=== PATIENT | female | born 1960 | race Caucasian/White ===

== ENCOUNTER 2016-03-09 11:57 | Inpatient (IN) | payer MEDICAID ==
[~2016-03-09] VITALS: Ht 167.6 cm; Wt 86.0 kg
[2016-03-09 18:00] VITALS: BP 114/74
[2016-03-09] MEDS ORDERED: ACETAMINOPHEN 500 MG TAB (TYLENOL) PO PRN (18:30)
[2016-03-09] MEDS ORDERED: PREPARATION H OINTMENT 57 GR TUBE PR PRN (18:30)
[2016-03-09] MEDS ORDERED: ARTIFICAL TEARS 0.4 ML UNIT DOSE (REFRESH PLUS) OU PRN (18:30)
[2016-03-09] MEDS: ENOXAPARIN 40 MG/0.4 ML (LOVENOX) SYR SC SCH (20:44)
[2016-03-09] MEDS: metroNIDAZOLE 500 MG (FLAGYL) TAB PO SCH (20:44)
[2016-03-09] MEDS: LUBIPROSTONE 24 MCG CAP (AMITIZA) NON-FORMULARY PO SCH (20:44)
[2016-03-09] MEDS: GABAPENTIN 600 MG (NEURONTIN) TAB PO SCH (20:44)
[2016-03-09] MEDS: ATENOLOL 25 MG (TENORMIN) TAB PO SCH (20:44)
[2016-03-09] MEDS: ATORVASTATIN 40 MG (LIPITOR) TABLET PO SCH (20:44)
[2016-03-09] MEDS: DILTIAZEM 30 MG (CARDIZEM) TAB PO SCH (20:44)
[2016-03-09] MEDS: inSUlin (REGULAR) HUMAN 1 UNIT/0.01 ML (CHARGE PER UNIT) SC SCH (21:00)
[2016-03-09] MEDS: POLYETHYLENE GLYCOL 17 GM (MIRALAX) PACK PO SCH (21:00)
[2016-03-09] MEDS: SENNA W/DOCUSATE (SENOKOT S) TABLET PO SCH (21:00)
[2016-03-09] MEDS: inSUlin DETERMIR 1 UNIT/0.01 ML (LEVEMIR) CHARGE PER UNIT SQ SCH (21:17)
[2016-03-10 06:00] VITALS: BP 100/65
[2016-03-10] MEDS: inSUlin (REGULAR) HUMAN 1 UNIT/0.01 ML (CHARGE PER UNIT) SC SCH ×4 (06:00→22:00)
[2016-03-10 06:33] LABS: BASOPHILS # (AUTO) 0.1 10^3/uL (0.0-0.1); BASOPHILS % (AUTO) 1 % (0-10); EOSINOPHILS # (AUTO) 0.4 10^3/uL (0.0-0.3); EOSINOPHILS % (AUTO) 5 % (0-10); LYMPHOCYTES # (AUTO) 1.7 X 10^3 (1.0-4.0); LYMPHOCYTES % (AUTO) 21 % (12-44); MEAN CORPUSCULAR HEMOGLOBIN 30 PG (25-34); MEAN CORPUSCULAR HGB CONC 33 G/DL (32-36); MEAN CORPUSCULAR VOLUME 90 FL (80-99); MEAN PLATELET VOLUME 9.7 FL (7.4-10.4); MONOCYTES # (AUTO) 0.7 X 10^3 (0.0-1.0); MONOCYTES % (AUTO) 9 % (0-12); NEUTROPHILS # (AUTO) 5.2 X 10^3 (1.8-7.8); NEUTROPHILS % (AUTO) 64 % (42-75); PLATELET COUNT 386 10^3/uL (130-400); RED BLOOD COUNT 3.75 10^6/uL (4.35-5.85); RED CELL DISTRIBUTION WIDTH 15.7 % (10.0-14.5); WHITE BLOOD COUNT 8.1 10^3/uL (4.3-11.0)
[2016-03-10 06:51] LABS: ALBUMIN 3.1 G/DL (3.2-4.5); BILIRUBIN,TOTAL 0.3 MG/DL (0.1-1.0); CALCIUM 8.9 MG/DL (8.5-10.1); CREATININE SERUM 1.26 MG/DL (0.60-1.30); POTASSIUM 3.4 MMOL/L (3.6-5.0); TOTAL PROTEIN 6.3 G/DL (6.4-8.2)
--- NOTE | 2016-03-10 08:51 | Physical Therapy Evaluation ---
PT Evaluation-General Medical Diagnosis Admission Date Mar 09, 2016 at 18:02 Medical Diagnosis: left BKA Onset Date: Feb 01, 2016 Therapy Diagnosis Therapy Diagnosis: impaired mobility, strength, balance, endurance Height/Weight Height (Feet): 5 Height (Inches): 6.00 Weight (Pounds): 187 Weight (Ounces): 1.0 Precautions Precautions/Isolations: Contact Isolation, Fall Prevention, Standard Precautions, Pressure Ulcer Weight Bear Status Location Restriction: [facility] Referral Physician: Jonah Reason for Referral: Evaluation/Treatment Medical History Pertinent Medical History: DM, HTN Additional Medical History c-diff, depression Current History had gangrenous cellulitis of left foot. Social History Home: Single Level Current Living Status: Spouse Entry Into Home: Stairs Without Railing PT Steps Into Home: 2 Patient has 2 fairly large steps to get into the back of her home, and there is no railing. The front has about 5 steps. She will need to get railing or a ramp. Prior/Core FIM Prior Level of Function Functional [place] Measure 0=Not Assessed/NA 4=Minimal Assistance 1=Total Assistance 5=Supervision or Setup 2=Maximal Assistance 6=Modified [place] 3=Moderate Assistance 7=Complete [place] Bed Mobility: 7 Transfers (B,C,W/C) (FIM): 7 Gait: 7 PT Evaluation-Current Subjective Patient sleeping in bed pre tx, agrees to PT upon waking. She has had a slight BM in bed and would like to go to the bedside commode. Patient states she has little to no pain in left leg right now, but it does get intense and she does have phantom limb pain. Pain Numeric Pain Scale: 0-No Pain Pt/Family Goals "to walk again" Objective Patient Orientation: Normal For Age ROM/Strength ROM Lower Extremities WNL, patient has full left knee extension Strenght Lower Extremities 4/5 right leg, left not tested due to recent surgery Integumentary/Posture Bowel Incontinence: Yes Neuromuscular (Tone, Coordination, Reflexes) WNL Sensory Vision: Functional Hearing: Functional Sensation Right Lower Extremit: Impaired Sensation Left Lower Extremity: Impaired Sensation Lower Extremities Patient has intact light touch sensation on the right leg below the knee but she states it is dull. Transfers Functional [place] Measure 0=Not Assessed/NA 4=Minimal Assistance 1=Total Assistance 5=Supervision or Setup 2=Maximal Assistance 6=Modified [place] 3=Moderate Assistance 7=Complete IndependenceIRFPAI Quality Coding Scale 6 Independent with activity with or without an assistive device 5 Patient requires set up or clean up by helper. Patient completes activity by themselves 4 Supervision or touching assist (CGA). [place] provide cues , steadying assist 3 The helper provides less than half the effort to complete the activity 2 The helper provides more than half the effort to complete the activity 1 Dependent. The helper does all the effort to complete an activity 7 Patient refused to complete or attempt activity 9 The patient did not perform the activity before the current illness or injury 88 Not attempted due to Medical conditions or safety concerns Transfers (B, C, W/C) (FIM): 3 Scootin Rollin Roll Left to Right (QC): 3 Supine to/from Sit: 3 Sit to/from Stand: 3 bed t/f WC(FIM only if WC use): 3 Sit to Lying (QC): 2 Lying to Sitting/Side of Bed(Q: 2 Sit to Stand (QC): 2 Chair/Vlv-xq-[place] Xfer(QC): 2 Car Transfer (QC): 88 Right leg is weak and she has a very hard time standing, she also has weak trunk and has a very hard time going from supine to sit. She needs cues for safety and hand placement, she tends to try to stand with hands on the walker. Gait Does the Patient Walk?: No and Walking Goal IS indicated Mode of Locomotion: Both Anticipated Mode of Locomotion: Both Gait (FIM): 1 Walk 10 feet (QC): 88 Walk 50 ft with 2 Turns(QC): 88 Walk 150 ft (QC): 88 Walking 10ft/uneven surface-QC: 88 Distance: 1-2' Gait Level of Assist: 3 Gait Persons Needed: 1 Gait Assistive Device: FWW Comments/Gait Description Patient had a couple of feet to ambulate and she basically just twisted her right foot back and forth until it went far enough that she could sit. Patient is not strong enough in the upper body to support her weight and lift her right leg off the ground. Wheelchair Training Does the Pt Use a Wheelchair?: Yes Wheelchair (FIM): 5 Distance: 150' Wheelchair Level of Assist: 5 Wheel 50 ft with 2 turns (QC): 4 Wheel 150 ft (QC): 4 Type of Wheelchair: Manual Patient just needs cues for safety and direction. Stairs Stairs (FIM): 0 1 Step (curb) (QC): 88 4 Steps (QC): 88 12 Steps (QC): 88 If not tested on admit;explain Patient is not strong enough to attempt even 1 step at this point. Balance Sitting Static: Fair Sitting Dynamic: Fair Standing Static: Poor Standing Dynamic: Poor Picking up an Object (QC): 88 Treatment Patient was toileted once, cleaned and and a brief applied. Assessment/Needs Patient has impaired mobility and is very weak in her right leg and trunk. Progress is going to be difficult due to her level of weakness, she may need to stay for an extended time to get her to be able to go up and down steps to get into her home or to ambulate a functional distance. Rehab Potential: Fair PT Short Term Goals Short Term Goals Time Frame: Mar 17, 2016 Transfers (B,C,W/C) (FIM): 4 Gait (FIM): 1 Gait Distance Comment: 10' Gait Level of Assist: 4 Gait Assistive Device: FWW PT Usp Goals Usp Goals PT Crawler Tractor Operator Goals Time Frame: Mar 31, 2016 Transfers (B,C,W/C) (FIM): 5 Sit to Lying (QC): 4 Lying-Sitting on Side/Bed(QC): 4 Sit to Stand (QC): 4 Rollin Roll Left to Right (QC): 4 Chair/Axd-rb-Wjabp Xfer(QC): 4 Car Transfer (QC): 4 Gait (FIM): 1 Distance: 20' Walk 10 feet (QC): 4 Walk 10ft-Uneven Surface(QC): 4 Walk 50ft with 2 Turns (QC): 88 Walk 150 ft (QC): 88 Gait Level of Assist: 5 Gait Assistive Device: FWW Wheelchair (FIM): 6 Distance: 150' Wheelchair Level of Assist: 6 Wheel 50 feet with 2 turns (QC: 6 Stairs (FIM): 2 # of Steps: 4 1 Step (curb) (QC): 4 4 Steps (QC): 4 12 Steps (QC): 88 Stairs Level Of Assist: 4 Picking up an Object (QC): 88 PT Plan Problem List Problem List: Activity Tolerance, Functional Strength, Safety, Balance, Gait, Transfer, Bed Mobility, ROM Treatment/Plan Treatment Plan: Continue Plan of Care, Discontinue PT, goals met Treatment Plan: Bed Mobility, Education, Functional Activity Mahad, Functional Strength, Group Therapy, Gait, Safety, Therapeutic Exercise, Transfers Treatment Duration: Mar 31, 2016 # of days/week 5-6 Visits Per Week: 10-11 Minutes/Day (M-F): 60-90 Minutes/Day (Sat/[place]ola): 15-30 Pt/Family Agrees w/Plan: Yes Safety Risks/Education Patient Education: Gait Training, Transfer Techniques, Correct Positioning, W/ C Management, Safety Issues Teaching Recipient: Patient Teaching Methods: Demonstration, Discussion Response to Teaching: Reinforcement Needed Discharge Recommendations Plan Patient will perform bed mobility and transfer training, balance and endurance training, functional strengthening, stair training, gait training, ROM/ stretching, education, to improve functional mobility and independence at home. Therapy D/C Recommendations: Home w/ Family Support Time/GCodes Time In: 800 Time Out: 900 Total Billed Treatment Time: 60 Total Billed Treatment 1 visit EVL 15 min WCH 15 min FA 30 min GEM DANIELSON PT Mar 10, 2016 08:51
--- NOTE | 2016-03-10 08:57 | HISTORY AND PHYSICAL ---
DATE OF ADMISSION: 03/09/2016 CHIEF COMPLAINT: Difficulty with walking. HISTORY OF PRESENT ILLNESS: The patient is a pleasant 55-year-old disabled female who lives with her spouse in [place], [place] with a history of peripheral vascular disease, chronic kidney disease and insulin-dependent diabetes mellitus, who was admitted to on 02/18 for treatment of C. diff. colitis. She was originally admitted to [facility] in January with septic shock and gangrenous cellulitis of the left foot. She underwent BKA on 01/31. She was transferred to a alf in her home community with Alexander catheter still in place. Once readmitted to [facility], she was placed on oral metronidazole, she became afebrile. Bacteremia with Streptococcus was noted without any sign of underlying infectious source, cystitis with E. coli secondary to Alexander catheter, asymptomatic. The patient was followed by infectious disease as well as hospitalist service. The patient has now been referred to Inpatient Rehabilitation Unit at [facility] for ongoing amputee rehabilitation. She continues on another 10 day course of p.o. Flagyl. She reports being continent of bowel and bladder and having better formed stools. She complains of her right leg giving out at times which has been for the past 2 years. She reports weakness with that. 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 Currently, she requires assistance for her ADLs and mobility skills. Her H&H on 02/21 was 10.2/32.5, platelet count 365,000.She is mod assist for transfers and gait with FWW She is Modified Independent for eating SBA for grooming Setup for UB dressing and min assist for Lower body dressing Mod asist for toilet transfers PAST MEDICAL HISTORY: 1. Insulin-dependent diabetes mellitus. 2. C. diff. bowel colitis as per above. 3. Depression. 4. Hypertension. 5. She reports minimal phantom limb pain, minimal residual limb pain. She is utilizing tramadol and Percocet for pain control. Gabapentin for neuropathic pain. PAST SURGICAL HISTORY: As per above as well as: 1. Tonsillectomy. 2. section. ALLERGIES: Tetanus toxoid. FAMILY HISTORY: Noncontributory. SOCIAL HISTORY: , lives in [place], [place] with spouse.Tobaccoism Declines smoking cessation REVIEW OF SYSTEMS: Ten-point review of systems significant for a right leg giving out. Some residual limb and phantom limb pain on the left. MEDICATIONS: 1. Lipitor 40 mg p.o. at bedtime. 2. Diltiazem 30 mg p.o. daily. 3. Gabapentin 600 mg p.o. t.i.d. 4. Levemir insulin 10 units subcutaneous at bedtime. 5. Sliding scale insulin regimen A. 6. Amitiza 24 mcg p.o. b.i.d. 7. MiraLAX 17 grams p.o. at bedtime. 8. Senokot-S 2 tablets p.o. b.i.d. 9. Flagyl 500 mg p.o. t.i.d. 10. Tylenol 500 mg p.o. q.4 hours p.r.n. mild pain. 11. Xanax 0.5 mg p.o. t.i.d. p.r.n. anxiety. 12. Refresh tears one drop to affected t.i.d. p.r.n. 13. Generic Percocet 5/325, 1 tablet p.o. q.4 hours p.r.n. moderate pain. Hemorrhoidal ointment, apply to hemorrhoids q.i.d. p.r.n. 14. Tramadol 50 mg p.o. t.i.d. p.r.n. moderate pain. PHYSICAL EXAMINATION: Significant for a pleasant female, appearing her stated age, alert and oriented in no acute distress. VITAL SIGNS: She is afebrile. Pulse is 87, respirations 20, blood pressure 114/74, O2 sat 96% on room air. HEENT: Vision, speech, hearing, grossly intact. No oral lesion is noted. NECK: Supple without mass. HEART: Regular rhythm. LUNGS: Clear. ABDOMEN: Soft, nontender. Bowel sounds present. EXTREMITIES: No lower leg edema. No calf tenderness on the right. The residual limb, left BKA, healing well. MUSCULOSKELETAL: The patient has functional active range of motion in both upper extremities and right lower extremity and at the left hip. NEUROLOGIC: Sensation is grossly intact to touch. Cognition grossly intact. Strength both upper extremities 4/5. Right lower extremity, she is able to active hip flex and straight leg raise on the right with strength generally in 4/5 as well as in proximal left lower extremity.fair at left knee IMPRESSION: 1. Ambulatory dysfunction secondary to left BKA for peripheral vascular disease associated with gangrenous cellulitis of the left foot 02/01/2016, in [place], [place]. 2. Postoperative C. diff. bowel colitis, treated. 3. Bacteremia, felt to be asymptomatic at this point. 4. E. coli with cystitis secondary to Alexander catheter now removed, asymptomatic. 5. Atrial fibrillation history, controlled with medication. 6. Hypertension, controlled with medication 7. Pressure sore on buttock. 8. Type 2 diabetes mellitus, controlled with medication. 9. Postop DVT prophylaxis. We will utilize Lovenox subcutaneous as needed. 10. Peripheral vascular disease . 11. Depression, controlled with medication. PLAN: The patient will have a comprehensive program of inpatient rehabilitation with goal of maximizing level of functional independence prior to discharge home with spouse. The patient will have PT/OT 90 minutes per day, each discipline, 5 days week for gait strengthening, conditioning, balance, residual limb conditioning, ADLs, any patient/family/caregiver training necessary, any adaptive equipment and training necessary. Speech therapy to do cognitive assessment and treat as indicated. Rehabilitation nursing assist with bowel, bladder, skin, wound care, medication administration, and pain management. Accu-Cheks q.i.d. before meals and at bedtime, adjust medications as necessary. Therapy with cardiac and fall precautions. The patient is nonweightbearing, left lower extremity. check services clerk to assist with discharge planning, community reentry. Routine admission labs, continue current medications. Consult Dr. Christina for medical management of this out of town patient. Consult Dr. Darden for wound care assessment and treatment as needed. ESTIMATED LENGTH OF STAY: Two weeks. PROGNOSIS: Rehab prognosis appears good for goal of discharging home with spouse, modified independent for ADLs and mobility skills at the wheelchair level of function. DIET: Carb consistent. CODE STATUS: Full code. POST ADMISSION PHYSICIAN ASSESSMENT: The preadmission screen agrees with the post admission assessment that the patient is a good candidate for inpatient rehabilitation. She appears well motivated to participate in 3 hours of therapy a day. She should be able tolerate 3 hours of therapy a day from a medical and surgical standpoint. She should benefit from the 3 hours of therapy a day. She has reasonable discharge plan, reasonable discharge rehabilitation goals and a supportive family. She has various comorbidities that need to be closely monitored with medications and treatments adjusted daily basis as needed, these include her ongoing wound care, treatment of diabetes mellitus, hypertension, and pain management. BARRIERS TO DISCHARGE: Barriers to discharge for this patient who had been modified independent prior to all of this, are for her to be modified independent to supervision for ADLs and mobility skills at the wheelchair level of function prior to discharge home with spouse so as to lessen the burden of the caregivers. RISKS FOR THIS PATIENT: Include: 1. Recurrent C. diff. bowel colitis. 2. Skin breakdown. 3. Wound infection. 4. Contractures. 5. Poorly controlled pain. 6. Poorly controlled hypertension. 7. Poorly controlled diabetes mellitus. 8. DVT. 9. Pulmonary embolism. 10. Urinary retention. 11. UTI. 12. Respiratory infection. 13. Aspiration. Job ID: [id number] Dictated Date: 03/09/2016 19:30:44 Tawer Date: 03/10/2016 08:35:05/verito GEE
[2016-03-10] MEDS ORDERED: lisINopril 10 MG (PRINIVIL) TAB PO SCH (09:00)
[2016-03-10] MEDS: SENNA W/DOCUSATE (SENOKOT S) TABLET PO SCH ×2 (09:00→22:01)
[2016-03-10] MEDS: metroNIDAZOLE 500 MG (FLAGYL) TAB PO SCH (09:17)
[2016-03-10] MEDS: FUROSEMIDE 20 MG (LASIX) TAB PO SCH (09:17)
[2016-03-10] MEDS: LUBIPROSTONE 24 MCG CAP (AMITIZA) NON-FORMULARY PO SCH ×2 (09:17→22:00)
[2016-03-10] MEDS: GABAPENTIN 600 MG (NEURONTIN) TAB PO SCH ×3 (09:17→22:01)
[2016-03-10] MEDS: DULoxetine 30 MG (CYMBALTA) CAP PO SCH (09:17)
[2016-03-10] MEDS: ATENOLOL 25 MG (TENORMIN) TAB PO SCH ×2 (09:18→22:01)
[2016-03-10] MEDS: DILTIAZEM 30 MG (CARDIZEM) TAB PO SCH ×3 (09:18→22:00)
--- NOTE | 2016-03-10 10:48 | Occupational Therapy Eval ---
OT Evaluation-General/PLF Medical Diagnosis Admission Date Mar 09, 2016 at 18:02 Medical Diagnosis: left BKA Onset Date: Feb 01, 2016 Therapy Diagnosis Therapy Diagnosis: decreased self care skills Height/Weight Height (Feet): 5 Height (Inches): 6.00 Weight (Pounds): 187 Weight (Ounces): 1.0 Precautions Precautions/Isolations: Contact Isolation, Fall Prevention, Standard Precautions, Pressure Ulcer Safety Interventions: Reorient-PRN Weight Bear Status Location Restriction: L LE Referral Physician: Jonah Medical History Pertinent Medical History: DM, HTN Additional Medical History left BKA, depression, c-diff Reviewed History: Yes Social History Home: Single Level Current Living Status: Spouse Entry Into Home: Stairs Without Railing Steps Into Home: 2 ADL-Prior Level of Function ADL PLOF Comments Independent prior to surgery. 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 Was not using and assistive device for mobility. Pt states she's had weakness in right LE for about a year DME/Equipment: Tub/Shower Drive Self: Yes OT Current Status Subjective Pt agrees to therapy. 3/10 pain in buttocks secondary to pressure ulcer. Mental Status/Objective Patient Orientation: Person, Place, Time, Situation Current Glasses/Contacts: Yes Hearing Aids: No Dentures/Partials: No Hand Dominance: Right Upper Extremity ROM Grossly WFL Upper Extremity Coordination Intact Upper Extremity Sensation Intact per pt report Upper Extremity Strength Grossly 4/5 ADL-Treatment ADL-Current Pt sitting in BSC when therapist arrives. Pt requires total assist for toileting hygiene and clothing management. Transfer BSC to w/c with moderate assistance using FWW. Pt has difficulty coming from sit to stand and requires cues for hand placement and safety. Sponge bath completed seated in chair. Pt able to wash upper body with set up. Pt able to wash bilateral upper legs and right lower leg. Pt requires assist for other areas. Pt washed hair in sink with SBA while seated. Don pullover gown with SBA. Pt able to doff/don right sock with SBA. Grooming tasks completed seated at sink. Pt washed face, brushed teeth, combed hair and shaved face with set up. Pt requires increased time for ADL tasks. Pt requests to remain sitting in w/c after session. All needs met. Functional [place] Measure 0=Not Assessed/NA 4=Minimal Assistance 1=Total Assistance 5=Supervision or Setup 2=Maximal Assistance 6=Modified [place] 3=Moderate Assistance 7=Complete IndependenceIRFPAI Quality Coding Scale 6 Independent with activity with or without an assistive device 5 Patient requires set up or clean up by helper. Patient completes activity by themselves 4 Supervision or touching assist (CGA). [place] provide cues , steadying assist 3 The helper provides less than half the effort to complete the activity 2 The helper provides more than half the effort to complete the activity 1 Dependent. The helper does all the effort to complete an activity 7 Patient refused to complete or attempt activity 9 The patient did not perform the activity before the current illness or injury 88 Not attempted due to Medical conditions or safety concerns Eating (FIM): 6 (Pt reports feeding self, managing containers, and cutting food without assistance.) Eating (QC): 6 Grooming (FIM): 5 Oral Hygiene (QC): 4 Bathing (FIM): 3 Bathing Location: L Arm, R Arm, L Upper Leg, R Upper Leg, R Lower Leg ( including foot), Chest, Abdomen Shower/Bathe Self (QC): 3 Upper Body Dressing (FIM): 5 Upper Body Dressing (QC): 4 On/Off Footwear (QC): 4 Toileting (FIM): 1 Toileting Hygiene (QC): 1 Toilet/Commode Transfer (FIM): 3 Toilet Transfer (QC): 3 Education OT Patient Education: Rehab process Teaching Recipient: Patient Teaching Methods: Discussion Response to Teaching: Verbalize Understanding OT Short Term Goals Short Term Goals Time Frame: Mar 17, 2016 Bathing(FIM): 4 Lower Body Dressing(FIM): 3 Toileting(FIM): 3 Toilet/Commode Transfer(FIM): 4 Shower Transfer(FIM): 3 Additional Short Term Goals: 1-Demonstrate ADL Tasks, 2-Verbalize Understanding , 3-ImproveStrength/Mahad 1=Demonstrate adherence to instructed precautions during ADL tasks. 2=Patient will verbalize/demonstrate understanding of assistive devices/ modifications for ADL. 3=Patient will improve strength/tolerance for activity to enable patient to perform ADL's. OT Halfway Goals Log Feeder Goals Time Frame: Mar 31, 2016 Eating (FIM): 6 Eating (QC): 6 Oral Hygiene (QC): 6 Grooming(FIM): 6 Bathing(FIM): 5 Shower/Bathe Self (QC): 4 Upper Body Dressing(FIM): 6 Upper Body Dressing (QC): 6 Lower Body Dressing(FIM): 5 Lower Body Dressing (QC): 4 On/Off Footwear (QC): 5 Toileting(FIM): 5 Toileting Hygiene (QC): 4 Toilet/Commode Transfer(FIM): 5 Toilet/Commode Transfer (QC): 4 Shower Transfer(FIM): 4 Additional Goals: 1-Demonstrate ADL Tasks, 2-Verbalize Understanding, 3- ImproveStrength/Mahad 1=Demonstrate adherence to instructed precautions during ADL tasks. 2=Patient will verbalize/demonstrate understanding of assistive devices/ modifications for ADL. 3=Patient will improve strength/tolerance for activity to enable patient to perform ADL's. Goals established to promote increased functional performance to allow safe return home. OT Education/Plan Problem List/Assessment Assessment: Decreased Activ Tolerance, Decreased UE Strength, Dependent Transfers, Impaired Funct Balance, Impaired I ADL's, Impaired Self-Care Skills Pt demonstrates decreased mobility, strength, activity tolerance, and ADL performance. Pt to benefit from skilled OT intervention for ADL training, transfers, strengthening, adaptive equipment training as needed, and home safety education to maximize level of function and allow safe discharge. Discharge Recommendations Plan/Recommendations: Continue POC Treatment Plan/Plan of Care Treatment,Training & Education: Yes Patient would benefit from OT for education, treatment and training to promote independence in ADL's, mobility, safety and/or upper extremity function for ADL' s. Plan of Care: ADL Retraining, Functional Mobility, Group Exercise/Act as Ind, UE Funct Exercise/Act Treatment Duration: Mar 31, 2016 # of days/week 5-6 Minutes/Day (M-F): 60-90 Minutes/Day (Sat/Canchola): PRN Agreement: Yes Rehab Potential: Fair Time/GCodes Start Time: 10:30 Stop Time: 12:00 Total Time Billed (hr/min): 90 Billed Treatment Time 1 visit, EVL(15minutes), ADLx5(75minutes) OLIVIA NELSON OT Mar 10, 2016 10:48
--- NOTE | 2016-03-10 10:58 | PM & R (SOAP) Progress Note ---
Subjective Subjective/Events-last exam Patient was seen in her room this AM Adjusting well to unit Therapy assessments ongoing due to late arrival from OSH last evening Patient educated about smoking cessation Patient declines.despite the effect that it can have on circulation and general health.Discussed case with RN last night and this AM Patient remians in contact precautions and stool for c dif positive RN to f/u with Dr christina re resuming Flagyl Discussed case with Clinical Pharmacist this AM Left BKA healing well no drainage noted Patient does have a pressure sore on back Wound care to Assess Serum K low Replacement to be ordered. Objective Exam Last Set of Vital Signs Vital Signs Date Time Temp Pulse Resp B/P Pulse Ox O2 Delivery O2 Flow Rate FiO2 03/10/16 06:00 97.1 75 16 100/65 95 Room Air Capillary Refill : Less Than 3 Seconds I&O Bad tableGeneral: Alert, Oriented X3, Cooperative, No Acute Distress HEENT: Atraumatic, PERRLA, EOMI, Mucous Memb Moist/[place] Neck: Supple, No JVD Lungs: Clear to Auscultation Heart: Regular Rate Abdomen: Normal Bowel Sounds, Soft, No Tenderness Extremities: Other (left BKA from 02/01/16 OSH) Skin: Other (prssure sore on back) Neuro: Other (mild weakness RLE) Results Lab Laboratory Tests 03/09/16 21:04: Glucometer 193H 03/10/16 05:59: Alanine Aminotransferase (ALT/SGPT) 14, Albumin 3.1L, Alkaline Phosphatase 67, Anion Gap 9, Aspartate Amino Transf (AST/SGOT) 11, BUN/Creatinine Ratio 17, Basophils # (Auto) 0.1, Basophils (%) (Auto) 1, Blood Urea Nitrogen 22H, Calcium Level 8.9, Carbon Dioxide Level 18L, Chloride Level 111H, Creatinine 1.26, Eosinophils # (Auto) 0.4H, Eosinophils (%) (Auto) 5, Estimat Glomerular Filtration Rate 44, Glucose Level 159H, Hematocrit 34L, Hemoglobin 11.2L, Lymphocytes # (Auto) 1.7, Lymphocytes (%) (Auto) 21, Mean Corpuscular Hemoglobin 30, Mean Corpuscular Hemoglobin Concent 33, Mean Corpuscular Volume 90, Mean Platelet Volume 9.7, Monocytes # (Auto) 0.7, Monocytes (%) (Auto) 9, Neutrophils # (Auto) 5.2, Neutrophils (%) (Auto) 64, Platelet Count 386, Potassium Level 3.4L, Red Blood Count 3.75L, Red Cell Distribution Width 15.7H, Sodium Level 138, Total Bilirubin 0.3, Total Protein 6.3L, White Blood Count 8.1 03/10/16 06:34: Glucometer 165H Microbiology 03/09/16 C. difficile GDH Antigen & Toxins - Final, Complete Assessment/Plan Assessment Left [facility] 02-01-16 OSH for gangrenous left foot Postop C DIF bowel colitis associated with sepsis treated at OSH Mild Hypokalemia Mild postop Anemia IDDM controlled HTN controlled depression on meds Tobaccoism declines Smoking cessation Plan PT/OT/ST assessments due to late arrival from OSH last evening DR Christina to see Continue contact precautions for cdif and most likely resume flagyl Replace K See orders. IRMA ESPINOZA MD Mar 10, 2016 10:58
[2016-03-10] MEDS ORDERED: KCL 20 MEQ TAB (K-DUR) PO NR (11:08)
[2016-03-10] MEDS ORDERED: OXYC-471 PO (11:13)
[2016-03-10] MEDS ORDERED: ACET325T38 PO (11:13)
[2016-03-10] MEDS ORDERED: LISI10TA2 PO (11:13)
[2016-03-10] MEDS ORDERED: SENN-36 PO (11:13)
[2016-03-10] MEDS ORDERED: DILT30TA PO (11:13)
[2016-03-10] MEDS ORDERED: TRAM50TA2 PO (11:13)
[2016-03-10] MEDS ORDERED: HYPR15DR6 OU (11:13)
[2016-03-10] MEDS ORDERED: BALS60OI TP (11:13)
[2016-03-10] MEDS ORDERED: POLY17PO6 PO (11:13)
[2016-03-10] MEDS ORDERED: CALC-938 PO (11:13)
[2016-03-10] MEDS ORDERED: GABA-488 PO (11:13)
[2016-03-10] MEDS ORDERED: ALPR0.5T PO (11:13)
[2016-03-10] MEDS ORDERED: CITA20TA7 PO (11:13)
[2016-03-10] MEDS ORDERED: DULO30CA3 PO (11:13)
[2016-03-10] MEDS ORDERED: MENT6OIN2 TP (11:13)
[2016-03-10] MEDS ORDERED: PHEN28OI6 RC (11:13)
[2016-03-10] MEDS ORDERED: PRAV20TA3 PO (11:13)
[2016-03-10] MEDS ORDERED: LUBI24CA6 PO (11:13)
[2016-03-10] MEDS ORDERED: INSU100V5 SQ (11:13)
[2016-03-10] MEDS ORDERED: INSU100V SQ (11:13)
--- NOTE | 2016-03-10 13:57 | Physical Therapy Daily Note ---
PT Daily Note-Current Subjective Patient in wheelchair pre tx, agrees to PT. Will be getting her back to bed for stretching and exercises. Pain Numeric Pain Scale: 0-No Pain Appearance Patient in bed post tx, nurse call on, she would like a female nurse to take her to the bathroom. Mental Status Patient Orientation: Normal For Age Transfers Functional [place] Measure 0=Not Assessed/NA 4=Minimal Assistance 1=Total Assistance 5=Supervision or Setup 2=Maximal Assistance 6=Modified [place] 3=Moderate Assistance 7=Complete IndependenceIRFPAI Quality Coding Scale 6 Independent with activity with or without an assistive device 5 Patient requires set up or clean up by helper. Patient completes activity by themselves 4 Supervision or touching assist (CGA). [place] provide cues , steadying assist 3 The helper provides less than half the effort to complete the activity 2 The helper provides more than half the effort to complete the activity 1 Dependent. The helper does all the effort to complete an activity 7 Patient refused to complete or attempt activity 9 The patient did not perform the activity before the current illness or injury 88 Not attempted due to Medical conditions or safety concerns Transfers (B, C, W/C) (FIM): 4 Sit to/from Stand: 4 Bed to/from Chair: 4 stand pivot transfer min assist, min assist with bed mobility to get a leg into bed. Exercises PROM/stretching to left hip and knee extension by therapist, also left side quad and glut sets x 20, and attempted bridging using only right leg but she could not get her bottom off the bed but still attempted x 20 Treatments bed mobility and transfer training, functional strengthening and stretching to prepare for prosthetic leg Assessment Current Status: Fair Progress already improve transfers PT Short Term Goals Short Term Goals Time Frame: Mar 17, 2016 Transfers (B,C,W/C) (FIM): 4 Gait (FIM): 1 Gait Distance Comment: 10' Gait Level of Assist: 4 Gait Assistive Device: FWW Wheelchair Distance: 150' PT Assistant Professor Of Business Goals Assisted Goals PT Assisted Goals Time Frame: Mar 31, 2016 Transfers (B,C,W/C) (FIM): 5 Sit to Lying (QC): 4 Lying-Sitting on Side/Bed(QC): 4 Sit to Stand (QC): 4 Rollin Roll Left to Right (QC): 4 Chair/Hik-yq-Sohpk Xfer(QC): 4 Car Transfer (QC): 4 Gait (FIM): 1 Distance: 20' Walk 10 feet (QC): 4 Walk 10ft-Uneven Surface(QC): 4 Walk 50ft with 2 Turns (QC): 88 Walk 150 ft (QC): 88 Gait Level of Assist: 5 Gait Assistive Device: FWW Wheelchair (FIM): 6 Distance: 150' Wheelchair Level of Assist: 6 Wheel 50 feet with 2 turns (QC: 6 Stairs (FIM): 2 # of Steps: 4 1 Step (curb) (QC): 4 4 Steps (QC): 4 12 Steps (QC): 88 Stairs Level Of Assist: 4 Picking up an Object (QC): 88 PT Plan Problem List Problem List: Activity Tolerance, Functional Strength, Safety, Balance, Gait, Transfer, Bed Mobility, ROM Treatment/Plan Treatment Plan: Continue Plan of Care Treatment Plan: Bed Mobility, Education, Functional Activity Mahad, Functional Strength, Group Therapy, Gait, Safety, Therapeutic Exercise, Transfers Treatment Duration: Mar 31, 2016 Visits Per Week: 10-11 Minutes/Day (M-F): 60-90 Minutes/Day (Sat/[place]): 15-30 Safety Risks/Education Patient Education: Transfer Techniques, Correct Positioning, Safety Issues Teaching Recipient: Patient Teaching Methods: Demonstration, Discussion Response to Teaching: Reinforcement Needed Time/GCodes Time In: 1300 Time Out: 1330 Total Billed Treatment Time: 30 Total Billed Treatment 1 visit FA 10 min EX 20 min GEM DANIELSON PT Mar 10, 2016 13:57
[2016-03-10] MEDS: oxyCODONE/APAP 5/325MG (PERCOCET 5) TABLET PO PRN ×2 (14:23→22:02)
--- NOTE | 2016-03-10 14:27 | Occupational Ther Daily Note ---
OT Current Status-Daily Note Subjective Pt in bed, requests to use restroom. Pt reports 4/10 pain, requests pain pill. RN notified. Mental Status/Objective Functional [place] Measure 0=Not Assessed/NA 4=Minimal Assistance 1=Total Assistance 5=Supervision or Setup 2=Maximal Assistance 6=Modified [place] 3=Moderate Assistance 7=Complete [place] ADL-Treatment Pt supine to sit with minimal assistance and increased time. Sit to stand with moderate assistance with bed raised. Transfer to BS with moderate assistance using FWW. Pt had some incontinence of bowel prior to reaching BS. Pt requires assist for toileting hygiene. Pt required total assist to don clean Depends. Pt fatigued with activity and required maximal assistance for transfer back to EOB. Sit to supine with minimal assistance. Functional [place] Measure 0=Not Assessed/NA 4=Minimal Assistance 1=Total Assistance 5=Supervision or Setup 2=Maximal Assistance 6=Modified [place] 3=Moderate Assistance 7=Complete IndependenceIRFPAI Quality Coding Scale 6 Independent with activity with or without an assistive device 5 Patient requires set up or clean up by helper. Patient completes activity by themselves 4 Supervision or touching assist (CGA). [place] provide cues , steadying assist 3 The helper provides less than half the effort to complete the activity 2 The helper provides more than half the effort to complete the activity 1 Dependent. The helper does all the effort to complete an activity 7 Patient refused to complete or attempt activity 9 The patient did not perform the activity before the current illness or injury 88 Not attempted due to Medical conditions or safety concerns Toileting Hygiene (QC): 1 Lower Body Dressing (FIM): 1 Toileting (FIM): 1 Toilet/Commode Transfer (FIM): 2 Other Treatment Pt performed bilateral UE exercises to increase strength needed for ADLs and transfers. Pt completed shoulder flexion, abduction, biceps curls, and triceps extension exercises x20 reps with moderate resistance theraband. Rest breaks taken between exercises. Pt resting in bed with needs met after session. Education OT Patient Education: Exercise program Teaching Recipient: Patient Teaching Methods: Demonstration, Discussion Response to Teaching: Return Demonstration OT Short Term Goals Short Term Goals Time Frame: Mar 17, 2016 Bathing(FIM): 4 Lower Body Dressing(FIM): 3 Toileting(FIM): 3 Toilet/Commode Transfer(FIM): 4 Shower Transfer(FIM): 3 Additional Short Term Goals: 1-Demonstrate ADL Tasks, 2-Verbalize Understanding , 3-ImproveStrength/Mahad 1=Demonstrate adherence to instructed precautions during ADL tasks. 2=Patient will verbalize/demonstrate understanding of assistive devices/ modifications for ADL. 3=Patient will improve strength/tolerance for activity to enable patient to perform ADL's. OT Sports Leadership Instructor Goals Mcfp Goals Time Frame: Mar 31, 2016 Eating (FIM): 6 Eating (QC): 6 Oral Hygiene (QC): 6 Grooming(FIM): 6 Bathing(FIM): 5 Shower/Bathe Self (QC): 4 Upper Body Dressing(FIM): 6 Upper Body Dressing (QC): 6 Lower Body Dressing(FIM): 5 Lower Body Dressing (QC): 4 On/Off Footwear (QC): 5 Toileting(FIM): 5 Toileting Hygiene (QC): 4 Toilet/Commode Transfer(FIM): 5 Toilet/Commode Transfer (QC): 4 Shower Transfer(FIM): 4 Additional Goals: 1-Demonstrate ADL Tasks, 2-Verbalize Understanding, 3- ImproveStrength/Mahad 1=Demonstrate adherence to instructed precautions during ADL tasks. 2=Patient will verbalize/demonstrate understanding of assistive devices/ modifications for ADL. 3=Patient will improve strength/tolerance for activity to enable patient to perform ADL's. OT Education/Plan Problem List/Assessment Pt demonstrates decreased mobility, strength, activity tolerance, and ADL performance. Pt to benefit from skilled OT intervention for ADL training, transfers, strengthening, adaptive equipment training as needed, and home safety education to maximize level of function and allow safe discharge. Discharge Recommendations Plan/Recommendations: Continue POC Treatment Plan/Plan of Care Patient would benefit from OT for education, treatment and training to promote independence in ADL's, mobility, safety and/or upper extremity function for ADL' s. Plan of Care: ADL Retraining, Functional Mobility, Group Exercise/Act as Ind, UE Funct Exercise/Act Treatment Duration: Mar 31, 2016 Minutes/Day (M-F): 60-90 Minutes/Day (Sat/[place]): PRN Agreement: Yes Rehab Potential: Fair Time/GCodes Start Time: 13:30 Stop Time: 14:00 Total Time Billed (hr/min): 30 Billed Treatment Time 1 visit, ADL(15minutes), EX(15minutes) OLIVIA NELSON OT Mar 10, 2016 14:27
--- NOTE | 2016-03-10 15:55 | Physical Therapy Daily Note ---
PT Daily Note-Current Subjective Patient is in bed and agrees to PT. Patient states she is very fatigues, however, is very motivated to improve. Pain Numeric Pain Scale: 0-No Pain Location: No Pain Reported Mental Status Patient Orientation: Normal For Age Transfers Functional [place] Measure 0=Not Assessed/NA 4=Minimal Assistance 1=Total Assistance 5=Supervision or Setup 2=Maximal Assistance 6=Modified [place] 3=Moderate Assistance 7=Complete IndependenceIRFPAI Quality Coding Scale 6 Independent with activity with or without an assistive device 5 Patient requires set up or clean up by helper. Patient completes activity by themselves 4 Supervision or touching assist (CGA). [place] provide cues , steadying assist 3 The helper provides less than half the effort to complete the activity 2 The helper provides more than half the effort to complete the activity 1 Dependent. The helper does all the effort to complete an activity 7 Patient refused to complete or attempt activity 9 The patient did not perform the activity before the current illness or injury 88 Not attempted due to Medical conditions or safety concerns Transfers (B, C, W/C) (FIM): 4 Scootin Rollin Roll Left to Right (QC): 5 Supine to/from Sit: 5 Sit to/from Stand: 4 Sit to Lying (QC): 5 Sit to Stand (QC): 4 Chair/Fas-ow-Fxhjn Xfer(QC): 4 Bed to/from Chair: 4 Car Transfer (QC): 88 minimal assist with sit to stand transfers and SPT to right bed to commode to w/ c to bed; and sit to stand w/c to FWW x 4 sets; min assist for safety and patient diminished functional strength. Treatments Transfer training perform with patient to improve current LOF. Minimal assist with sit to stand with skilled verbal instruction for hand placement on FWW and arms of w/c. Patient required recovery periods during treatment secondary to fatigue from inactivity at prior care facilities. Assessment Current Status: Good Progress Patient displays limitations with functional strength of bilateral UE's and right LE with transfer training. PT to address limitations with exercise and functional mobility to ensure safe return to home with family. PT Short Term Goals Short Term Goals Time Frame: Mar 17, 2016 Gait (FIM): 1 Gait Distance Comment: 10' Gait Level of Assist: 4 Gait Assistive Device: FWW Wheelchair Distance: 150' PT Jail Goals Dry Cleaning Supervisor Goals PT Dry Cleaning Supervisor Goals Time Frame: Mar 31, 2016 Transfers (B,C,W/C) (FIM): 5 Sit to Lying (QC): 4 Lying-Sitting on Side/Bed(QC): 4 Sit to Stand (QC): 4 Rollin Roll Left to Right (QC): 4 Chair/Agr-eh-Zgfhj Xfer(QC): 4 Car Transfer (QC): 4 Gait (FIM): 1 Distance: 20' Walk 10 feet (QC): 4 Walk 10ft-Uneven Surface(QC): 4 Walk 50ft with 2 Turns (QC): 88 Walk 150 ft (QC): 88 Gait Level of Assist: 5 Gait Assistive Device: FWW Wheelchair (FIM): 6 Distance: 150' Wheelchair Level of Assist: 6 Wheel 50 feet with 2 turns (QC: 6 Stairs (FIM): 2 # of Steps: 4 1 Step (curb) (QC): 4 4 Steps (QC): 4 12 Steps (QC): 88 Stairs Level Of Assist: 4 Picking up an Object (QC): 88 PT Plan Problem List Problem List: Activity Tolerance, Functional Strength Treatment/Plan Treatment Plan: Continue Plan of Care Treatment Plan: Bed Mobility, Education, Functional Activity Mahad, Functional Strength, Group Therapy, Gait, Safety, Therapeutic Exercise, Transfers Treatment Duration: Mar 31, 2016 Visits Per Week: 10-11 Minutes/Day (M-F): 60-90 Minutes/Day (Sat/[place]): 15-30 Safety Risks/Education Patient Education: Transfer Techniques, Safety Issues Teaching Recipient: Patient Teaching Methods: Demonstration, Discussion Response to Teaching: Verbalize Understanding, Return Demonstration Time/GCodes Time In: 1505 Time Out: 1550 Total Billed Treatment Time: 45 Total Billed Treatment 1 visit FA x 3 45 min DEE FLORES PT Mar 10, 2016 15:55
--- NOTE | 2016-03-10 17:14 | Consultation ---
History of Present Illness History of Present Illness Patient Consulted On(keturah/time) 03/10/16 17:10 Date of Admission History of Present Illness PATIENT IS AN INSULIN-DEPENDENT DIABETIC SINCE HER DAUGHTER WAS BORN 11 YEARS AGO BY . Patient had a left below the knee amputation of leg. Patient has a history of C. difficile. Patient has peripheral vascular disease. Patient has history of hypertension and depression. Surgeries orthopedic left leg, , and tonsils. Allergic to the tetanus shot Allergies and Home Medications Allergies Coded Allergies: tetanus toxoid, adsorbed (Verified Adverse Reaction, Intermediate, 03/09/16 ) Home Medications Acetaminophen 325 Mg Tablet 650 MG PO Q4H PRN PRN PAIN (Reported) TAKES 2 (325MG) TABLETS Alprazolam 0.5 Mg Tablet 0.5 MG PO TID PRN PRN ANXIETY (Reported) Balsam [place] Oil 60 Gm Oint...g. TP BID (Reported) Calcium Carbonate 300 Mg Tab.chew 750 MG PO BID (Reported) Citalopram Hydrobromide 20 Mg Tablet 20 MG PO DAILY (Reported) Diltiazem HCl 30 Mg Tablet 30 MG PO TID (Reported) Duloxetine HCl 30 Mg Capsule.dr 30 MG PO DAILY (Reported) Gabapentin 300 Mg Capsule 600 MG PO TID (Reported) TAKES 2 (300MG) CAPSULES Hypromellose 15 Ml Drops 1-2 DROPS OU Q4H PRN PRN DRY EYES (Reported) Insulin Determir 1,000 Units/10 Ml Soln 10 UNITS SQ 2100 (Reported) Insulin Lispro 100 Unit/1 Ml Vial SQ ACHS (Reported) Lisinopril 10 Mg Tablet 10 MG PO DAILY (Reported) Lubiprostone 24 Mcg Capsule 24 MCG PO BID (Reported) Menthol/Camphor/Dimeth/Phenol 6 Gm Oint...g. TP PRN PRN PRN DRY LIPS (Reported) Oxycodone HCl/Acetaminophen 1 Each Tablet 1 TAB PO Q4H PRN PRN PAIN (Reported) Phenyleph/Mineral Oil/Petrolat 28 Gm Oint.appl RC UD PRN PRN HEMORRHOIDS ( Reported) Polyethylene Glycol 3350 17 Gm Powd.pack 17 GM PO DAILY (Reported) Pravastatin Sodium 20 Mg Tablet 20 MG PO HS (Reported) Sennosides 8.6 Mg Tablet 2 TAB PO BID (Reported) Tramadol HCl 50 Mg Tablet 50-100 MG PO Q6H PRN PRN PAIN (Reported) Past Lqsorxd-Tprasr-Mokkxe Hx Patient Social History Smoking Status: Current Everyday Smoker Type Used: Cigarettes Recent Foreign Travel: No Contact w/Someone Who Travel: No Recent Infectious Disease Expo: No Immunizations Up To Date Date of Influenza Vaccine: Feb 20, 2016 Surgeries Surgeries: Orthopedic, Tonsillectomy Cardiovascular Cardiac Disorders: Atrial Fibrillation Review of Systems-General Constitutional: malaise weakness EENTM: no symptoms reported Respiratory: no symptoms reported Cardiovascular: other (one week ago in atrial fibrillation) Gastrointestinal: diarrhea other (has C. difficile) Genitourinary: no symptoms reported Physical Exam-General Problems Physical Exam Vital Signs Vital Sign - Last 12Hours 03/09/16 18:00 Temp 97.0 Pulse 87 Resp 20 B/P 114/74 Pulse Ox 96 O2 Delivery Room Air Capillary Refill : Less Than 3 Seconds General Appearance: WD/WN no apparent distress Eyes: Bilateral Eye Normal Inspection HEENT: normal ENT inspection Neck: non-tender full range of motion Respiratory: chest non-tender lungs clear normal breath sounds no respiratory distress no accessory muscle use Cardiovascular: regular rate, rhythm no murmur Gastrointestinal: non tender soft Assessment/Plan Assessment/Plan Admission Diagnosis/Plan left below the knee amputation. Diabetes. Peripheral vascular disease. Depression history. Hypertension history Clinical Quality Measures DVT/VTE Risk/Contraindication: Risk Factor Score Per Nursin RFS Level Per Nursing on Admit: 4+=Very High URSULA RENEE DO Mar 10, 2016 17:14
[2016-03-10 17:25] VITALS: BP 99/64
--- NOTE | 2016-03-10 19:08 | Individualized Plan of Care ---
Individualized Plan of Care Rehab Nursing IPOC Order Admission Date Mar 09, 2016 at 18:02 Current Orders Orders-IRMA ESPINOZA MD Admission-Acute Rehab Unit (03/09/16 17:47) Admission-Acute Rehab Unit (03/09/16 18:16) Social Service (03/09/16 18:16) Rehab Nursing Orders-Ipoc (03/09/16 18:16) Physical Therapy Rehab Orders (03/09/16 18:16) Occupational Therapy Rehab Ord (03/09/16 18:16) Speech Therapy Rehab Orders (03/09/16 18:16) Cho 60g/M 1snack (16-2000 Anthony) (03/10/16 Breakfast) Turn And Reposition Q2HR (03/09/16 18:16) Intake & Output Shift Assessme 06,14,22 (03/09/16 18:16) Weight Bearing Status (03/09/16 18:16) Precautions (Aru) (03/09/16 18:16) Weekly Weight (Lbs) WEEK (03/09/16 18:16) Cbc With Automated Diff (03/10/16 06:00) Comprehensive Metabolic Panel (03/10/16 06:00) Accucheck Achs ACHS (03/09/16 18:21) Consult Physician (03/09/16 18:22) Consult Physician (03/09/16 18:23) Atenolol Tablet (Tenormin Tablet) (03/09/16 21:00) Citalopram Tablet (Celexa Tablet) (03/10/16 09:00) Furosemide Tablet (Lasix Tablet) (03/10/16 09:00) Lisinopril Tablet (Zestril Tablet) (03/10/16 09:00) Atorvastatin Tablet (Lipitor) (03/09/16 21:00) Acetaminophen Tablet (Tylenol Tablet) (03/09/16 18:30) Alprazolam Tablet (Xanax Tablet) (03/09/16 18:30) Diltiazem Tablet (Cardizem Tablet) (03/09/16 21:00) Duloxetine Capsule (Cymbalta Capsule) (03/10/16 09:00) Gabapentin Capsule/Tablet (Neurontin Cap (03/09/16 21:00) Insulin Determir (Per Unit) (Levemir (Pe (03/09/16 21:00) Insulin (Regular) Human (Humulin R (Per (03/09/16 21:00) Carboxymethylcell Ophth Soln (Refresh Pl (03/09/16 18:30) Lubiprostone (Non-Formulary) (Amitiza (N (03/09/16 21:00) Oxycodone/Apap 5/325mg Tablet (Percocet (03/09/16 18:30) Polyethylene Glycol Powder Pkt (Miralax (03/09/16 21:00) Phenyleph/Mineral Oil/Petrolat (Hemorrho (03/09/16 18:30) Senna S Tablet (Senokot S Tablet) (03/09/16 21:00) Tramadol Tablet (Ultram Tablet) (03/09/16 18:30) Metronidazole Tablet (Flagyl Tablet) (03/09/16 21:00) Cho 60g/M 1snack (16-2000 Anthony) (03/09/16 Dinner) Tramadol Tablet (Ultram Tablet) (03/09/16 18:44) Enoxaparin Injection (Lovenox Injection) (03/09/16 19:45) Isolation Central Supply Req (03/09/16 20:57) C Difficile Ag + Toxin A/B. (03/09/16 20:57) Potassium Chloride (Tablet) (K Dur Table (03/10/16 11:08) Patient Visit (03/10/16 ) Pt Eval Low Complexity (03/10/16 ) Functional Activities, Ea 15 (03/10/16 ) Exercise Therap, Ea 15 Min (03/10/16 ) Wheelchair Mgmt/Propulsn 15min (03/10/16 ) Patient Visit (03/10/16 ) Functional Activities, Ea 15 (03/10/16 ) PT IPOC Problem List: Activity Tolerance, Functional Strength Treatment Plan: Continue Plan of Care Bed Mobility, Education, Functional Activity Mahad, Functional Strength, Group Therapy, Gait, Safety, Therapeutic Exercise, Transfers Treatment Duration: Mar 31, 2016 Visits Per Week: 10-11 Minutes/Day (M-F): 60-90 Minutes/Day (Sat/[place]): 15-30 OT IPOC Problems: Decreased Activ Tolerance, Decreased UE Strength, Dependent Transfers , Impaired Funct Balance, Impaired I ADL's, Impaired Self-Care Skills OT Problems Pt demonstrates decreased mobility, strength, activity tolerance, and ADL performance. Pt to benefit from skilled OT intervention for ADL training, transfers, strengthening, adaptive equipment training as needed, and home safety education to maximize level of function and allow safe discharge. Plan of Care: ADL Retraining, Functional Mobility, Group Exercise/Act as Ind, UE Funct Exercise/Act Treatment Duration: Mar 31, 2016 Visits Per Week: 10-11 Minutes/Day (M-F): 60-90 Minutes/Day (Sat/Canchola): PRN ST IPOC Speech Therapy Treatment Plan: Discontinue ST Physician IPOC Medical Issues being managed closely and that require the 24 hour availability of a physician:Addison palacios Bowel colitis Pain Management DM management HTN Medical Issues: Bowel/Bladder Function, DVT Prophylaxis, Falls Precautions, Fluid/Electrolyte/Nutrition Balance, Infection Protection, Pain Management, Weight Bearing Precautions, Wound Care, Other (List) (as per above) Brief Synthesis of Preadmission Screen, Post-Admission Evaluation, and Therapy Evaluations: 55 yo female who had left BKA due to gangrene left foor with underlying DM Insulin dependent with procedure performed on 01/31- who then developed cdif bowel colitis after being placed in [facility] in [place],Was readmitted to OSH in [facility] Now referred to IRU her for ongoing Amputee rehab prior to return home with spouse in [facility].Stool fo cdif still positive after course of Flagyj and contact precautions maintained, PMH IDDM HTN PVD A FIB Depression Medical Prognosis: good Anticipated Length of Stay: 3 weeks Rehab Goals Modified Independent for adls and Mobility at W/C level of function due to Amputee status Anticipated discharge destinat: Home with spouse and [facility] IRMA ESPINOZA MD Mar 10, 2016 19:07
[2016-03-10] MEDS: ENOXAPARIN 40 MG/0.4 ML (LOVENOX) SYR SC SCH (21:59)
[2016-03-10] MEDS: inSUlin DETERMIR 1 UNIT/0.01 ML (LEVEMIR) CHARGE PER UNIT SQ SCH (21:59)
[2016-03-10] MEDS: ATORVASTATIN 40 MG (LIPITOR) TABLET PO SCH (22:00)
[2016-03-10] MEDS: POLYETHYLENE GLYCOL 17 GM (MIRALAX) PACK PO SCH (22:01)
[2016-03-11] MEDS: oxyCODONE/APAP 5/325MG (PERCOCET 5) TABLET PO PRN ×3 (02:53→22:43)
[2016-03-11 06:00] VITALS: BP 83/56
[2016-03-11 07:14] LABS: CALCIUM 8.6 MG/DL (8.5-10.1); CREATININE SERUM 1.19 MG/DL (0.60-1.30); POTASSIUM 3.5 MMOL/L (3.6-5.0)
[2016-03-11] MEDS ORDERED: NS IV 500 ML 500 ML IV ONE (08:00)
[2016-03-11] MEDS: inSUlin (REGULAR) HUMAN 1 UNIT/0.01 ML (CHARGE PER UNIT) SC SCH ×4 (08:02→21:51)
[2016-03-11] MEDS: FUROSEMIDE 20 MG (LASIX) TAB PO SCH (09:00)
[2016-03-11] MEDS: LUBIPROSTONE 24 MCG CAP (AMITIZA) NON-FORMULARY PO SCH ×2 (09:00→21:00)
[2016-03-11] MEDS: SENNA W/DOCUSATE (SENOKOT S) TABLET PO SCH ×2 (09:00→21:00)
--- NOTE | 2016-03-11 09:00 | Physical Therapy Daily Note ---
PT Daily Note-Current Subjective Patient in bed pre tx, agrees to PT. Upon starting PT, nurse came in and states that she has to do an EKG and put an IV in, will try to perform PT at the same time as we can. Patient reports no pain, just some muscle soreness. Appearance Patient in bed post tx with nurse call, phone, tray, all needs met. Mental Status Patient Orientation: Normal For Age Transfers Functional [place] Measure 0=Not Assessed/NA 4=Minimal Assistance 1=Total Assistance 5=Supervision or Setup 2=Maximal Assistance 6=Modified [place] 3=Moderate Assistance 7=Complete IndependenceIRFPAI Quality Coding Scale 6 Independent with activity with or without an assistive device 5 Patient requires set up or clean up by helper. Patient completes activity by themselves 4 Supervision or touching assist (CGA). [place] provide cues , steadying assist 3 The helper provides less than half the effort to complete the activity 2 The helper provides more than half the effort to complete the activity 1 Dependent. The helper does all the effort to complete an activity 7 Patient refused to complete or attempt activity 9 The patient did not perform the activity before the current illness or injury 88 Not attempted due to Medical conditions or safety concerns Transfers (B, C, W/C) (FIM): 3 Scootin Rollin Supine to/from Sit: 5 Sit to/from Stand: 3 Mod assist to stand. She is able to perform bed mobility and sit<-> supine with SBA now, but sometimes she needs extra time because it is difficult for her. Patient was able to stand about 3 min at the edge of the bed. Exercises Supine Ex: Bridging, Ankle pumps, Quad Set, Glut sets, Heel Slides, Short Arc Quads, Straight leg raise, Hip abd/add Supine Reps: 20 Patient also rolled over onto her front to stretch left hip extension for several minutes, and therapist assisted left knee extension stretch Treatments bed mobility and transfers, functional strengthening, stretching/ROM Assessment Current Status: Fair Progress Patient has a very weak right leg, she really needs to be able to get to the gym and into the parallel bars for training but she has been confined to her room due to c-diff. PT Short Term Goals Short Term Goals Time Frame: Mar 17, 2016 Gait (FIM): 1 Gait Distance Comment: 10' Gait Level of Assist: 4 Gait Assistive Device: FWW Wheelchair Distance: 150' PT Fpc Goals Fpc Goals PT Fpc Goals Time Frame: Mar 31, 2016 Transfers (B,C,W/C) (FIM): 5 Sit to Lying (QC): 4 Lying-Sitting on Side/Bed(QC): 4 Sit to Stand (QC): 4 Rollin Roll Left to Right (QC): 4 Chair/Qri-kq-Rwvks Xfer(QC): 4 Car Transfer (QC): 4 Gait (FIM): 1 Distance: 20' Walk 10 feet (QC): 4 Walk 10ft-Uneven Surface(QC): 4 Walk 50ft with 2 Turns (QC): 88 Walk 150 ft (QC): 88 Gait Level of Assist: 5 Gait Assistive Device: FWW Wheelchair (FIM): 6 Distance: 150' Wheelchair Level of Assist: 6 Wheel 50 feet with 2 turns (QC: 6 Stairs (FIM): 2 # of Steps: 4 1 Step (curb) (QC): 4 4 Steps (QC): 4 12 Steps (QC): 88 Stairs Level Of Assist: 4 Picking up an Object (QC): 88 PT Plan Problem List Problem List: Activity Tolerance, Functional Strength, Safety, Balance, Gait, Transfer, Bed Mobility, ROM Treatment/Plan Treatment Plan: Continue Plan of Care Treatment Plan: Bed Mobility, Education, Functional Activity Mahad, Functional Strength, Group Therapy, Gait, Safety, Therapeutic Exercise, Transfers Treatment Duration: Mar 31, 2016 Visits Per Week: 10-11 Minutes/Day (M-F): 60-90 Minutes/Day (Sat/[place]): 15-30 Safety Risks/Education Patient Education: Transfer Techniques, Correct Positioning, Safety Issues Teaching Recipient: Patient Teaching Methods: Demonstration, Discussion Response to Teaching: Reinforcement Needed Time/GCodes Time In: 800 Time Out: 900 Total Billed Treatment Time: 60 Total Billed Treatment 1 visit FA 15 min EX 45 min GEM DANIELSON PT Mar 11, 2016 09:00
--- NOTE | 2016-03-11 09:02 | Progress Note (SOAP) ---
Subjective Subjective/Events-last exam patient feeling good today. Patient positive. Patient hypotensive. Lisinopril stop. Patient in sinus rhythm. Patient has history of atrial fibrillation Objective Exam Vital Signs Date Time Temp Pulse Resp B/P Pulse Ox O2 Delivery O2 Flow Rate FiO2 03/11/16 06:00 98.8 66 18 83/56 96 Room Air 03/10/16 17:25 97.4 73 20 99/64 99 Room Air I & O 03/11/16 07:00 Intake Total 950 ml Balance 950 ml Capillary Refill : Less Than 3 Seconds General Appearance: No Apparent Distress WD/WN Results Lab Laboratory Tests 03/11/16 05:47 Laboratory Tests 03/10/16 12:31: Glucometer 186H 03/10/16 18:09: Glucometer 161H 03/10/16 21:08: Glucometer 208H 03/11/16 05:47: Anion Gap 9, BUN/Creatinine Ratio 18, Blood Urea Nitrogen 21H, Calcium Level 8.6 , Carbon Dioxide Level 18L, Chloride Level 110H, Creatinine 1.19, Estimat Glomerular Filtration Rate 47, Glucose Level 103, Potassium Level 3.5L, Sodium Level 137 Microbiology 03/09/16 C. difficile GDH Antigen & Toxins - Final, Complete Assessment/Plan Assessment/Plan Assess & Plan/Chief Complaint left below the knee amputation. Diabetes. Peripheral vascular disease. Depression history. Hypertension history. . 03/11/16 left below knee amputation. Diabetes. Peripheral vascular disease. History of hypertension. C. difficile. Hypotensive. Health lisinopril Diagnosis/Problems: Clinical Quality Measures DVT/VTE Risk/Contraindication: Risk Factor Score Per Nursin RFS Level Per Nursing on Admit: 4+=Very High URSULA RENEE DO Mar 11, 2016 09:02
[2016-03-11 09:07] VITALS: BP 92/58
[2016-03-11 09:09] VITALS: BP 97/68
[2016-03-11] MEDS: GABAPENTIN 600 MG (NEURONTIN) TAB PO SCH ×3 (09:12→21:50)
[2016-03-11] MEDS: DULoxetine 30 MG (CYMBALTA) CAP PO SCH (09:13)
--- NOTE | 2016-03-11 09:27 | PM & R (SOAP) Progress Note ---
Subjective Subjective/Events-last exam Patient was seen in her room this AM Discussed case with Nursing and DR Christina Patient hypotensive this am and some meds held Dr Barrios here to assess patient and see if meds need to be further adjusted.Patient min assist for transfers Objective Exam Last Set of Vital Signs Vital Signs Date Time Temp Pulse Resp B/P Pulse Ox O2 Delivery O2 Flow Rate FiO2 03/11/16 09:09 64 20 97/68 97 Room Air 03/11/16 06:00 98.8 Capillary Refill : Less Than 3 Seconds I&O Intake and Output 03/11/16 00:00 Intake Total 1150 ml Balance 1150 ml Intake Oral 1150 ml # Voids 10 # Bowel Movements 12 General: Alert, Oriented X3, Cooperative, No Acute Distress HEENT: Atraumatic, PERRLA, EOMI, Mucous Memb Moist/[place] Neck: Supple, No JVD Lungs: Clear to Auscultation Heart: Regular Rate Abdomen: Normal Bowel Sounds, Soft, No Tenderness Extremities: Other (left BKA from 02/01/16 OSH) Skin: Other (prssure sore on back) Neuro: Other (mild weakness RLE) Results Lab Laboratory Tests 03/09/16 21:04: Glucometer 193H 03/10/16 05:59: Alanine Aminotransferase (ALT/SGPT) 14, Albumin 3.1L, Alkaline Phosphatase 67, Anion Gap 9, Aspartate Amino Transf (AST/SGOT) 11, BUN/Creatinine Ratio 17, Basophils # (Auto) 0.1, Basophils (%) (Auto) 1, Blood Urea Nitrogen 22H, Calcium Level 8.9, Carbon Dioxide Level 18L, Chloride Level 111H, Creatinine 1.26, Eosinophils # (Auto) 0.4H, Eosinophils (%) (Auto) 5, Estimat Glomerular Filtration Rate 44, Glucose Level 159H, Hematocrit 34L, Hemoglobin 11.2L, Lymphocytes # (Auto) 1.7, Lymphocytes (%) (Auto) 21, Mean Corpuscular Hemoglobin 30, Mean Corpuscular Hemoglobin Concent 33, Mean Corpuscular Volume 90, Mean Platelet Volume 9.7, Monocytes # (Auto) 0.7, Monocytes (%) (Auto) 9, Neutrophils # (Auto) 5.2, Neutrophils (%) (Auto) 64, Platelet Count 386, Potassium Level 3.4L, Red Blood Count 3.75L, Red Cell Distribution Width 15.7H, Sodium Level 138, Total Bilirubin 0.3, Total Protein 6.3L, White Blood Count 8.1 03/10/16 06:34: Glucometer 165H 03/10/16 12:31: Glucometer 186H 03/10/16 18:09: Glucometer 161H 03/10/16 21:08: Glucometer 208H 03/11/16 05:47: Anion Gap 9, BUN/Creatinine Ratio 18, Blood Urea Nitrogen 21H, Calcium Level 8.6 , Carbon Dioxide Level 18L, Chloride Level 110H, Creatinine 1.19, Estimat Glomerular Filtration Rate 47, Glucose Level 103, Potassium Level 3.5L, Sodium Level 137 Microbiology 03/09/16 C. difficile GDH Antigen & Toxins - Final, Complete Assessment/Plan Assessment Left [facility] 02-01-16 OSH for gangrenous left foot Postop C DIF bowel colitis associated with sepsis treated at OSH Mild Hypokalemia Mild postop Anemia IDDM controlled HTN with hx of afib now sinus with hypotension depression on meds Tobaccoism declines Smoking cessation Plan Continue PT/OT as tolerated DR Barrios to see re cardiac meds with echo ordered recheck labs IRMA ESPINOZA MD Mar 11, 2016 09:27
--- NOTE | 2016-03-11 09:45 | Consultation-Cardiology ---
HPI-Cardiology Cardiology Consultation Date of Consultation 03/11/16 Date of Admission Indication: hypotension HPI 55-year-old lady with history of peripheral arterial disease, underwent left leg amputation secondary to nonhealing ulcer. She was at [facility] on January 31 for her amputation. Reported to have atrial fibrillation, treated with Cardizem and atenolol, was on Lovenox subcutaneous injection but did not receive oral anticoagulation. She was rehospitalized for C. difficile colitis and generalized weakness, transferred for her acute rehabilitation. During her hospital stay she was noted to be hypotensive. She denied any chest pain, palpitation, syncope or near syncopal episode. She is an active smoker. Denied any previous cardiac workup. Home Medications & Allergies Allergies: Coded Allergies: tetanus toxoid, adsorbed (Verified Adverse Reaction, Intermediate, 03/09/16 ) Home Medication List Reviewed: Yes AKA-Sfwlrs-[place] Hx Patient Social History Marital Status: Smoking Status: Current Everyday Smoker Type Used: Cigarettes Recent Foreign Travel: No Recent Infectious Disease Expo: No Immunizations Up To Date Date of Influenza Vaccine: Feb 20, 2016 Past Medical History past medical history as discussed below Family Medical History Family Medical Hx noncontributory Constitutional: see HPI malaise weakness EENTM: no symptoms reported see HPI Respiratory: see HPI cough Cardiovascular: see HPI vascular heart diseas other (left amputation) Gastrointestinal: see HPI diarrhea Genitourinary: no symptoms reported see HPI Musculoskeletal: no symptoms reported see HPI Skin: see HPI other (ulcer) Psychiatric/Neurological: No Symptoms Reported See HPI Reviewed Test Results Reviewed Test Results Lab Laboratory Tests Test 03/10/16 12:31 03/10/16 18:09 03/10/16 21:08 03/11/16 05:47 Range/Units Glucometer 186 H 161 H 208 H 70-110 MG/DL Anion Gap 9 5-14 MMOL/L BUN/Creatinine Ratio 18 Blood Urea Nitrogen 21 H 7-18 MG/DL Calcium Level 8.6 8.5-10.1 MG/DL Carbon Dioxide Level 18 L 21-32 MMOL/L Chloride Level 110 H 98-107 MMOL/L Creatinine 1.19 0.60-1.30 MG/DL Estimat Glomerular Filtration Rate 47 Glucose Level 103 70-105 MG/DL Potassium Level 3.5 L 3.6-5.0 MMOL/L Sodium Level 137 135-145 MMOL/L Physical Exam Vital Signs Vital Sign - Last 12Hours 03/09/16 18:00 Temp 97.0 Pulse 87 Resp 20 B/P 114/74 Pulse Ox 96 O2 Delivery Room Air Capillary Refill : Less Than 3 Seconds General Appearance: No Apparent Distress WD/WN Eyes: Bilateral Eye EOMI, Bilateral Eye Normal Inspection, Bilateral Eye PERRL HEENT: PERRL/EOMI TMs Normal Normal ENT Inspection Pharynx Normal Neck: Full Range of Motion Normal Inspection Non Tender Supple Carotid Bruit Respiratory: Chest Non Tender Lungs Clear Normal Breath Sounds No Accessory Muscle Use No Respiratory Distress Cardiovascular: Regular Rate, Rhythm No Edema No Gallop No JVD No Murmur Normal Peripheral Pulses Gastrointestinal: Normal Bowel Sounds No Organomegaly No Pulsatile Mass Non Tender Soft Back: Normal Inspection No CVA Tenderness No Vertebral Tenderness Extremity: Normal Range of Motion Non Tender No Calf Tenderness No Pedal Edema Other (left BKA) Neurologic/Psychiatric: Alert Oriented x3 No Motor/Sensory Deficits Normal Mood/Affect Skin: Normal Color Warm/Dry Lymphatic: No Adenopathy A/P-Cardiology Admission Diagnosis Hypotension Paroxysmal atrial fibrillation Hyperlipidemia Peripheral arterial disease Diabetes mellitus Assessment/Plan Hypotension, probably secondary to hypovolemia in addition to her aggressive antihypertensive medications. At this point I will stop XOCHITL inhibitor, with parameters for the use of beta blockers and Cardizem and monitor blood pressure closely. I will evaluate 2-D echocardiogram. Paroxysmal atrial fibrillation, reporting episode of atrial fibrillation during her hospital stay in January at [facility]. She was not started on oral anticoagulation, no signs of bleeding. Probably transient episode of atrial fibrillation. She denied any previous history prior to her surgery. No syncope was reported. C. difficile colitis, still having diarrhea, treated by primary care physician History of hypertension, currently hypotensive, monitor blood pressure Peripheral arterial disease, extensive, continue to monitor closely. 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 Mild hypokalemia, monitor electrolytes Anemia, monitor H&H Hyperlipidemia, maintained on Lipitor. Monitor lipids Diabetes mellitus, followed and managed by primary care physician Tobaccoism, educated in length on smoking cessation Depression, anxiety. Managed by primary care physician Debility, receiving physical therapy Clinical Quality Measures DVT/VTE Risk/Contraindication: Risk Factor Score Per Nursin RFS Level Per Nursing on Admit: 4+=Very High MILADY SHANNON MD Mar 11, 2016 09:45
[2016-03-11 11:04] VITALS: BP 99/61
--- NOTE | 2016-03-11 11:25 | Occupational Ther Daily Note ---
OT Current Status-Daily Note Subjective Pt in bed, agrees to treatment. No c/o pain this am. Mental Status/Objective Functional [place] Measure 0=Not Assessed/NA 4=Minimal Assistance 1=Total Assistance 5=Supervision or Setup 2=Maximal Assistance 6=Modified [place] 3=Moderate Assistance 7=Complete [place] Attachments: IV ADL-Treatment Pt requesting to use BSC when therapist arrives. Supine to sit with supervision. Sit to stand with moderate assistance with bed raised slightly. Transfer to [facility] with moderate assistance using FWW. Pt requires assist for Depends up/down, but is able to complete toileting hygiene with SBA. Pt requests to clean up this morning. Transfer BSC to [facility] with moderate assistance using FWW. Pt completed sponge bath while seated in w/. Upper body bathing completed with setup. Pt able to wash bilateral upper legs and right lower leg/ foot. Doff/don pullover gown with SBA. Pt able to doff/don right sock with SBA. Grooming tasks completed seated at sink. Pt brushed teeth and combed hair with SBA. Increased time for ADLs. Functional [place] Measure 0=Not Assessed/NA 4=Minimal Assistance 1=Total Assistance 5=Supervision or Setup 2=Maximal Assistance 6=Modified [place] 3=Moderate Assistance 7=Complete IndependenceIRFPAI Quality Coding Scale 6 Independent with activity with or without an assistive device 5 Patient requires set up or clean up by helper. Patient completes activity by themselves 4 Supervision or touching assist (CGA). [place] provide cues , steadying assist 3 The helper provides less than half the effort to complete the activity 2 The helper provides more than half the effort to complete the activity 1 Dependent. The helper does all the effort to complete an activity 7 Patient refused to complete or attempt activity 9 The patient did not perform the activity before the current illness or injury 88 Not attempted due to Medical conditions or safety concerns Grooming (FIM): 5 Upper Body (FIM): 5 Toileting (FIM): 2 Toilet/Commode Transfer (FIM): 3 Other Treatment Pt completed bilateral UE exercises to promote increased strength needed for ADLs and transfers. Pt performed shoulder flexion, abduction, horizontal abduction, biceps curls, and triceps extension exercises x20 reps with moderate resistance theraband. Pt requires occasional cues for proper exercise technique. Pt able to track reps without assistance. Brief rest breaks between exercises. Pt transferred w/c to EOB with moderate assistance. Pt sitting EOB with needs met and RN present after session. OT Short Term Goals Short Term Goals Time Frame: Mar 17, 2016 Bathing(FIM): 4 Lower Body Dressing(FIM): 3 Toileting(FIM): 3 Toilet/Commode Transfer(FIM): 4 Shower Transfer(FIM): 3 Additional Short Term Goals: 1-Demonstrate ADL Tasks, 2-Verbalize Understanding , 3-ImproveStrength/Mahad 1=Demonstrate adherence to instructed precautions during ADL tasks. 2=Patient will verbalize/demonstrate understanding of assistive devices/ modifications for ADL. 3=Patient will improve strength/tolerance for activity to enable patient to perform ADL's. OT Director Of Accounting Goals Director Of Accounting Goals Time Frame: Mar 31, 2016 Eating (FIM): 6 Eating (QC): 6 Oral Hygiene (QC): 6 Grooming(FIM): 6 Bathing(FIM): 5 Shower/Bathe Self (QC): 4 Upper Body Dressing(FIM): 6 Upper Body Dressing (QC): 6 Lower Body Dressing(FIM): 5 Lower Body Dressing (QC): 4 On/Off Footwear (QC): 5 Toileting(FIM): 5 Toileting Hygiene (QC): 4 Toilet/Commode Transfer(FIM): 5 Toilet/Commode Transfer (QC): 4 Shower Transfer(FIM): 4 Additional Goals: 1-Demonstrate ADL Tasks, 2-Verbalize Understanding, 3- ImproveStrength/Mahad 1=Demonstrate adherence to instructed precautions during ADL tasks. 2=Patient will verbalize/demonstrate understanding of assistive devices/ modifications for ADL. 3=Patient will improve strength/tolerance for activity to enable patient to perform ADL's. OT Education/Plan Problem List/Assessment Pt demonstrates decreased mobility, strength, activity tolerance, and ADL performance. Pt to benefit from skilled OT intervention for ADL training, transfers, strengthening, adaptive equipment training as needed, and home safety education to maximize level of function and allow safe discharge. Discharge Recommendations Plan/Recommendations: Continue POC Treatment Plan/Plan of Care Patient would benefit from OT for education, treatment and training to promote independence in ADL's, mobility, safety and/or upper extremity function for ADL' s. Plan of Care: ADL Retraining, Functional Mobility, Group Exercise/Act as Ind, UE Funct Exercise/Act Treatment Duration: Mar 31, 2016 Visits Per Week: 10-11 Minutes/Day (M-F): 60-90 Minutes/Day (Sat/[place]): PRN Agreement: Yes Rehab Potential: Fair Time/GCodes Start Time: 10:30 Stop Time: 11:45 Total Time Billed (hr/min): 75 Billed Treatment Time 1 visit, ADLx3(50minutes), EXx2(25minutes) OLIVIA NELSON OT Mar 11, 2016 11:25
--- NOTE | 2016-03-11 11:47 | ST Cognitive Linguistic Eval ---
Speech Evaluation-General Medical Diagnosis left BKA Onset Date: Feb 01, 2016 Therapy Diagnosis Therapy Diagnosis: Questionable Cognitive Impairment Precautions Precautions/Isolations: Contact Isolation, Fall Prevention, Contact/Enteric Isolation, Pressure Ulcer Referral Referring Physician: Dr. Errol Mckenzie Reason for Referral: Evaluation/Treatment Cognitive Screen Medical History Pertinent Medical History: DM, HTN Reviewed History: Yes Social History Current Living Status: Spouse Speech PLF-Current Status Prior Level of Function The patient denied cognitive challenges prior to or throughout her recent hospitalization. Subjective The patient was recently admitted to [facility] following an amputation. The patient greeted the clinician appropriately and agreed to participate in the cognitive screen on this date. Language Eval: Auditory Comprehends Simple Yes/No Ques: Functional Indent/Objects Multiple Abreu: Functional Ident/Pics in Multiple Abreu: Functional Follows 1-Step Commands: Functional Follows Complex Directions: Functional Follows General Conversations: Functional Language Eval: Verbal Language Completes Spontaneous Greeting: Functional Produces Auto, Serial Info: Functional Imitates Simple Words/Phrases: Functional Word Finding: Functional Requests Basic Needs: Functional States Basic Personal Info: Functional Expresses Complex Ideas: Functional Cognitive Patient Orientation The patient is alert and oriented x 3. Objective Cognitive Domain Attention: WNL Memory: WNL Problem Solving: Functional Executive Functions: WNL Objective Impression The patient demonstrated cognitive linguistic skills appropriate for completion of ADL's. Communication/Social Cognition Comprehension: 6 Expression: 6 Social Interaction: 6 Problem Solvin Memory: 6 Speech Patient Assess Expression of Ideas/Wants: Expression (4) Understanding [place] Content: Understands (4) Brief Interview-Mental Status: Yes Repetition of Three Words: Three (3) Temporal Orientation: Year: Correct (3) Temporal Orientation: Month: Accurate within 5 days(2) Temporal Orientation: Day: Correct (1) Recall : Wear: Yes, no cue required (2) Recall : Color: Yes, no cue required (2) Recall : Bed: Yes, no cue required (2) Speech-Plan Treatment Plan Speech Therapy Treatment Plan: Discontinue ST (Eval, only.) Rehab Potential: Fair Safety Risks/Education Teaching Recipient: Patient Teaching Methods: Discussion Response to Teaching: Verbalize Understanding Education Topics Provided: Plan of Care Time Speech Therapy Time In: 10:15 Speech Therapy Time Out: 10:30 Total Billed Time: 15 Billed Treatment Time 1MARTINA ELIZABETH ST Mar 11, 2016 11:47
--- NOTE | 2016-03-11 14:11 | Occupational Ther Daily Note ---
OT Current Status-Daily Note Subjective Pt in bed, agrees to treatment. Pt states family will be here to visit her this weekend. Mental Status/Objective Functional [place] Measure 0=Not Assessed/NA 4=Minimal Assistance 1=Total Assistance 5=Supervision or Setup 2=Maximal Assistance 6=Modified [place] 3=Moderate Assistance 7=Complete [place] ADL-Treatment Pt supine to sit with supervision. [place] [facility] [place] moderate assistance using FWW, cues for safety. Pt able to complete toileting hygiene, but requires assist for clothing management. Pt requires total assist to don clean Depends. Transfer to w/c with moderate assistance. Functional [place] Measure 0=Not Assessed/NA 4=Minimal Assistance 1=Total Assistance 5=Supervision or Setup 2=Maximal Assistance 6=Modified [place] 3=Moderate Assistance 7=Complete IndependenceIRFPAI Quality Coding Scale 6 Independent with activity with or without an assistive device 5 Patient requires set up or clean up by helper. Patient completes activity by themselves 4 Supervision or touching assist (CGA). [place] provide cues , steadying assist 3 The helper provides less than half the effort to complete the activity 2 The helper provides more than half the effort to complete the activity 1 Dependent. The helper does all the effort to complete an activity 7 Patient refused to complete or attempt activity 9 The patient did not perform the activity before the current illness or injury 88 Not attempted due to Medical conditions or safety concerns Toileting (FIM): 2 Toilet/Commode Transfer (FIM): 3 Other Treatment Pt performed bilateral UE exercises while seated in w/c to increase strength and activity tolerance needed for ADLs and transfers. Pt performed shoulder flexion, forward press, and overhead press x20 reps using dowel sandra. Pt moves slowly and performs exercises with good technique. Rest breaks taken between exercises. Pt performed modified w/c push ups x10 reps to increase strength needed for transfers. Putty activity completed to increase hand strength. Pt able to remove small beads from putty using bilateral hands. Pt transferred back to bed with moderate assistance. Sitting EOB with needs met after session. OT Short Term Goals Short Term Goals Time Frame: Mar 17, 2016 Bathing(FIM): 4 Lower Body Dressing(FIM): 3 Toileting(FIM): 3 Toilet/Commode Transfer(FIM): 4 Shower Transfer(FIM): 3 Additional Short Term Goals: 1-Demonstrate ADL Tasks, 2-Verbalize Understanding , 3-ImproveStrength/Mahad 1=Demonstrate adherence to instructed precautions during ADL tasks. 2=Patient will verbalize/demonstrate understanding of assistive devices/ modifications for ADL. 3=Patient will improve strength/tolerance for activity to enable patient to perform ADL's. OT Mcc Goals Mcc Goals Time Frame: Mar 31, 2016 Eating (FIM): 6 Eating (QC): 6 Oral Hygiene (QC): 6 Grooming(FIM): 6 Bathing(FIM): 5 Shower/Bathe Self (QC): 4 Upper Body Dressing(FIM): 6 Upper Body Dressing (QC): 6 Lower Body Dressing(FIM): 5 Lower Body Dressing (QC): 4 On/Off Footwear (QC): 5 Toileting(FIM): 5 Toileting Hygiene (QC): 4 Toilet/Commode Transfer(FIM): 5 Toilet/Commode Transfer (QC): 4 Shower Transfer(FIM): 4 Additional Goals: 1-Demonstrate ADL Tasks, 2-Verbalize Understanding, 3- ImproveStrength/Mahad 1=Demonstrate adherence to instructed precautions during ADL tasks. 2=Patient will verbalize/demonstrate understanding of assistive devices/ modifications for ADL. 3=Patient will improve strength/tolerance for activity to enable patient to perform ADL's. OT Education/Plan Problem List/Assessment Pt demonstrates decreased mobility, strength, activity tolerance, and ADL performance. Pt to benefit from skilled OT intervention for ADL training, transfers, strengthening, adaptive equipment training as needed, and home safety education to maximize level of function and allow safe discharge. Discharge Recommendations Plan/Recommendations: Continue POC Treatment Plan/Plan of Care Patient would benefit from OT for education, treatment and training to promote independence in ADL's, mobility, safety and/or upper extremity function for ADL' s. Plan of Care: ADL Retraining, Functional Mobility, Group Exercise/Act as Ind, UE Funct Exercise/Act Treatment Duration: Mar 31, 2016 Visits Per Week: 10-11 Minutes/Day (M-F): 60-90 Minutes/Day (Sat/[place]): PRN Agreement: Yes Rehab Potential: Fair Time/GCodes Start Time: 13:00 Stop Time: 13:45 Total Time Billed (hr/min): 45 Billed Treatment Time 1 visit, ADL(20minutes), EXx2(25minutes) OMAR,OLIVIA L OT Mar 11, 2016 14:11
--- NOTE | 2016-03-11 14:34 | Physical Therapy Daily Note ---
PT Daily Note-Current Subjective Patient sitting EOB pre tx, agrees to PT, pleasant and cooperative. Pain Numeric Pain Scale: 0-No Pain Appearance Patient needed to use the commode after exercises so she did that with therapist and nursing assist. Mental Status Patient Orientation: Normal For Age Transfers Functional [place] Measure 0=Not Assessed/NA 4=Minimal Assistance 1=Total Assistance 5=Supervision or Setup 2=Maximal Assistance 6=Modified [place] 3=Moderate Assistance 7=Complete IndependenceIRFPAI Quality Coding Scale 6 Independent with activity with or without an assistive device 5 Patient requires set up or clean up by helper. Patient completes activity by themselves 4 Supervision or touching assist (CGA). [place] provide cues , steadying assist 3 The helper provides less than half the effort to complete the activity 2 The helper provides more than half the effort to complete the activity 1 Dependent. The helper does all the effort to complete an activity 7 Patient refused to complete or attempt activity 9 The patient did not perform the activity before the current illness or injury 88 Not attempted due to Medical conditions or safety concerns Transfers (B, C, W/C) (FIM): 4 Sit to/from Stand: 4 Exercises Seated Therapy Exercises: Ankle pumps, Hip flexion, Hamstring Curls Seated Reps: 20 sit to stand 3 sets of 5 Treatments functional strengthening, patient needed to use the bedside commode after exercises, PT and nursing transferred her to the commode with min assist and nursing got her brief down, left patient with nurse call Assessment Current Status: Fair Progress PT Short Term Goals Short Term Goals Time Frame: Mar 17, 2016 Gait (FIM): 1 Gait Distance Comment: 10' Gait Level of Assist: 4 Gait Assistive Device: FWW Wheelchair Distance: 150' PT Feed Inspection Supervisor Goals Feed Inspection Supervisor Goals PT Feed Inspection Supervisor Goals Time Frame: Mar 31, 2016 Transfers (B,C,W/C) (FIM): 5 Sit to Lying (QC): 4 Lying-Sitting on Side/Bed(QC): 4 Sit to Stand (QC): 4 Rollin Roll Left to Right (QC): 4 Chair/Fhv-kx-Dkijt Xfer(QC): 4 Car Transfer (QC): 4 Gait (FIM): 1 Distance: 20' Walk 10 feet (QC): 4 Walk 10ft-Uneven Surface(QC): 4 Walk 50ft with 2 Turns (QC): 88 Walk 150 ft (QC): 88 Gait Level of Assist: 5 Gait Assistive Device: FWW Wheelchair (FIM): 6 Distance: 150' Wheelchair Level of Assist: 6 Wheel 50 feet with 2 turns (QC: 6 Stairs (FIM): 2 # of Steps: 4 1 Step (curb) (QC): 4 4 Steps (QC): 4 12 Steps (QC): 88 Stairs Level Of Assist: 4 Picking up an Object (QC): 88 PT Plan Problem List Problem List: Activity Tolerance, Functional Strength, Safety, Balance, Gait, Transfer, Bed Mobility, ROM Treatment/Plan Treatment Plan: Continue Plan of Care Treatment Plan: Bed Mobility, Education, Functional Activity Mahad, Functional Strength, Group Therapy, Gait, Safety, Therapeutic Exercise, Transfers Treatment Duration: Mar 31, 2016 Visits Per Week: 10-11 Minutes/Day (M-F): 60-90 Minutes/Day (Sat/[place]): 15-30 Safety Risks/Education Patient Education: Transfer Techniques, Correct Positioning, Safety Issues Teaching Recipient: Patient Teaching Methods: Demonstration, Discussion Response to Teaching: Reinforcement Needed Time/GCodes Time In: 1400 Time Out: 1430 Total Billed Treatment Time: 30 Total Billed Treatment 1 visit EX 20 min FA 10 min GEM DANIELSON PT Mar 11, 2016 14:34
[2016-03-11 15:50] VITALS: BP 111/76
[2016-03-11] MEDS: DILTIAZEM 30 MG (CARDIZEM) TAB PO SCH ×2 (15:58→21:52)
[2016-03-11 17:55] VITALS: BP 109/75
[2016-03-11] MEDS ORDERED: NON-FORMULARY MEDICATION 1 EA EA IV SCH (20:30)
[2016-03-11] MEDS: POLYETHYLENE GLYCOL 17 GM (MIRALAX) PACK PO SCH (21:00)
[2016-03-11] MEDS: inSUlin DETERMIR 1 UNIT/0.01 ML (LEVEMIR) CHARGE PER UNIT SQ SCH (21:47)
[2016-03-11] MEDS: ENOXAPARIN 40 MG/0.4 ML (LOVENOX) SYR SC SCH (21:47)
[2016-03-11] MEDS: ATORVASTATIN 40 MG (LIPITOR) TABLET PO SCH (21:50)
[2016-03-11] MEDS: VANCOMYCIN ORAL 250 MG/5 ML 60 ML PO SCH ×2 (21:51)
[2016-03-12] MEDS: VANCOMYCIN ORAL 250 MG/5 ML 60 ML PO SCH ×8 (00:55→17:56)
[2016-03-12 06:00] VITALS: BP 95/58
[2016-03-12] MEDS: inSUlin (REGULAR) HUMAN 1 UNIT/0.01 ML (CHARGE PER UNIT) SC SCH ×4 (06:00→20:46)
--- NOTE | 2016-03-12 08:11 | Physical Therapy Daily Note ---
PT Daily Note-Current Subjective Agreeable to PT. Wants to get stronger. Mental Status Patient Orientation: Person, Place, Time, Situation Transfers Functional [place] Measure 0=Not Assessed/NA 4=Minimal Assistance 1=Total Assistance 5=Supervision or Setup 2=Maximal Assistance 6=Modified [place] 3=Moderate Assistance 7=Complete IndependenceIRFPAI Quality Coding Scale 6 Independent with activity with or without an assistive device 5 Patient requires set up or clean up by helper. Patient completes activity by themselves 4 Supervision or touching assist (CGA). [place] provide cues , steadying assist 3 The helper provides less than half the effort to complete the activity 2 The helper provides more than half the effort to complete the activity 1 Dependent. The helper does all the effort to complete an activity 7 Patient refused to complete or attempt activity 9 The patient did not perform the activity before the current illness or injury 88 Not attempted due to Medical conditions or safety concerns Worked on sit to from stand with SPT to the left and right x 2. Pt needs min varinder tto stand from the bed and mod assist to stand from the chair. Close CGA with SPT. Pt able to raise onto toes to turn but unable to fully unweight to hop forward or back. Exercises Seated Therapy Exercises: Ankle pumps, Long arc quads, Hip flexion, Hip abd/add , Glut set Seated Reps: 12 (ther ex performed for LE strength to facilitate transfers and ability to SPt. ) Assessment Current Status: Good Progress Motivated and cooperative. Difficulty with sit to stand persists and difficulty with SPT still present. LE weakness present and makes transfers difficult PT Short Term Goals Short Term Goals Time Frame: Mar 17, 2016 Gait (FIM): 1 Gait Distance Comment: 10' Gait Level of Assist: 4 Gait Assistive Device: FWW Wheelchair Distance: 150' PT Shelter Goals Electrophysiology Technologist Goals PT Electrophysiology Technologist Goals Time Frame: Mar 31, 2016 Transfers (B,C,W/C) (FIM): 5 Sit to Lying (QC): 4 Lying-Sitting on Side/Bed(QC): 4 Sit to Stand (QC): 4 Rollin Roll Left to Right (QC): 4 Chair/Cjb-kj-Xvwez Xfer(QC): 4 Car Transfer (QC): 4 Gait (FIM): 1 Distance: 20' Walk 10 feet (QC): 4 Walk 10ft-Uneven Surface(QC): 4 Walk 50ft with 2 Turns (QC): 88 Walk 150 ft (QC): 88 Gait Level of Assist: 5 Gait Assistive Device: FWW Wheelchair (FIM): 6 Distance: 150' Wheelchair Level of Assist: 6 Wheel 50 feet with 2 turns (QC: 6 Stairs (FIM): 2 # of Steps: 4 1 Step (curb) (QC): 4 4 Steps (QC): 4 12 Steps (QC): 88 Stairs Level Of Assist: 4 Picking up an Object (QC): 88 PT Plan Problem List Problem List: Activity Tolerance, Functional Strength, Safety, Balance, Transfer Treatment/Plan Treatment Plan: Continue Plan of Care Treatment Plan: Bed Mobility, Education, Functional Activity Mahad, Functional Strength, Group Therapy, Gait, Safety, Therapeutic Exercise, Transfers Treatment Duration: Mar 31, 2016 Visits Per Week: 10-11 Minutes/Day (M-F): 60-90 Minutes/Day (Sat/[place]): 15-30 Safety Risks/Education Patient Education: Safety Issues Teaching Recipient: Patient Teaching Methods: Discussion Response to Teaching: Verbalize Understanding Time/GCodes Time In: 715 Time Out: 750 Total Billed Treatment Time: 35 Total Billed Treatment visit FA 20 EX 15 ANA MOODY PT Mar 12, 2016 08:11
[2016-03-12] MEDS: DULoxetine 30 MG (CYMBALTA) CAP PO SCH (08:38)
[2016-03-12] MEDS: GABAPENTIN 600 MG (NEURONTIN) TAB PO SCH ×3 (08:38→20:46)
[2016-03-12] MEDS: DILTIAZEM 30 MG (CARDIZEM) TAB PO SCH ×3 (08:38→20:46)
[2016-03-12] MEDS: LUBIPROSTONE 24 MCG CAP (AMITIZA) NON-FORMULARY PO SCH ×2 (08:38→20:46)
[2016-03-12] MEDS: SENNA W/DOCUSATE (SENOKOT S) TABLET PO SCH ×2 (08:39→19:48)
[2016-03-12] MEDS: FUROSEMIDE 20 MG (LASIX) TAB PO SCH (08:39)
--- NOTE | 2016-03-12 09:16 | ECHOCARDIOGRAPHY REPORT ---
PROCEDURE PHYSICIAN: MILADY SHANNON DATE OF PROCEDURE: 03/11/2016 TWO DIMENSIONAL ECHOCARDIOGRAM REPORT PRIMARY PHYSICIAN: OTHER PHYSICIAN: REFERRING PHYSICIAN: Dr. Jonah St ORDERING PHYSICIAN: INDICATION FOR THE PROCEDURE: Hypotension. MEASUREMENTS DERIVED VALUES LV DIAMETER (LAX) NORMALS NORMALS Diastolic 4.5 (3.6-5.2) Eject. Fract. 60% (60%+/-6%) Systolic (2.3-3.9) Diastolic Vol. % Shortening (0.22-0.42) Systolic Vol. Aortic Root IVS THICKNESS Diastolic 1.2 (0.6-1.1) LVPW THICKNESS Diastolic 1.1 (0.6-1.1) LA DIAMETER Systolic 3.8 (2.1-3.7) FINDINGS: 1. Technical quality is good. 2. The left ventricle is normal in size with mild left ventricular hypertrophy noted diffusely. Systolic function appeared to be normal. Estimated ejection fraction 60%. Diastolic dysfunction is suggested by Doppler. 3. The left atrium is normal in size. No clot or thrombus were seen within the left atrium. 4. The right atrium and right ventricle are normal in size. No clot or thrombus were seen within the right side. 5. 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 No mitral valve prolapse. No mitral valve stenosis. Mild mitral regurgitation noted by color Doppler flow. 6. Aortic valve is calcified. There is no significant aortic valve stenosis or regurgitation seen. 7. Tricuspid valve is normal in morphology with mild tricuspid regurgitation noted by color Doppler flow. Doppler across tricuspid valve estimated pulmonary artery pressure of 26+ right atrial pressure. 8. Pulmonic valve is functioning normally. 9. No pericardial effusion. IN CONCLUSION: 1. Mild left ventricular hypertrophy noted diffusely. Normal systolic function with estimated ejection fraction 60%. Diastolic dysfunction is suggested by Doppler. 2. 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 3. Aortic valve sclerosis. No aortic stenosis. 4. Mild tricuspid regurgitation. 5. Estimated pulmonary artery pressure of 35 mmHg. Job ID: [id number] Dictated Date: 03/11/2016 14:51:47 [place]ola Operator Date: 03/12/2016 09:09:22 / verito
--- NOTE | 2016-03-12 09:44 | Occupational Ther Daily Note ---
OT Current Status-Daily Note Subjective Pt in bed, agrees to treatment. Pt's family arrives during session. Mental Status/Objective Functional [place] Measure 0=Not Assessed/NA 4=Minimal Assistance 1=Total Assistance 5=Supervision or Setup 2=Maximal Assistance 6=Modified [place] 3=Moderate Assistance 7=Complete [place] ADL-Treatment Supine to sit with supervision. Pt completed sponge bath while seated EOB. Upper body bathing with set up. Pt able to wash srinivasa area and bilateral upper legs. Pt declined to remove right shoe and sock to wash foot. Sit to stand with minimal assistance and bed raised. Assist to wash buttocks. Pt required total assist to don Depends. Pt donned hospital gown with set up. Sit to stand and transfer to w/c with minimal assistance using FWW. Pt sat at sink to wash hair with set up. Pt brushed teeth and combed hair with SBA. Pt requests to remain up in w/c after session. Pt sitting in w/c with needs met and family present after session. Functional [place] Measure 0=Not Assessed/NA 4=Minimal Assistance 1=Total Assistance 5=Supervision or Setup 2=Maximal Assistance 6=Modified [place] 3=Moderate Assistance 7=Complete IndependenceIRFPAI Quality Coding Scale 6 Independent with activity with or without an assistive device 5 Patient requires set up or clean up by helper. Patient completes activity by themselves 4 Supervision or touching assist (CGA). [place] provide cues , steadying assist 3 The helper provides less than half the effort to complete the activity 2 The helper provides more than half the effort to complete the activity 1 Dependent. The helper does all the effort to complete an activity 7 Patient refused to complete or attempt activity 9 The patient did not perform the activity before the current illness or injury 88 Not attempted due to Medical conditions or safety concerns OT Short Term Goals Short Term Goals Time Frame: Mar 17, 2016 Bathing(FIM): 4 Lower Body Dressing(FIM): 3 Toileting(FIM): 3 Toilet/Commode Transfer(FIM): 4 Shower Transfer(FIM): 3 Additional Short Term Goals: 1-Demonstrate ADL Tasks, 2-Verbalize Understanding , 3-ImproveStrength/Mahad 1=Demonstrate adherence to instructed precautions during ADL tasks. 2=Patient will verbalize/demonstrate understanding of assistive devices/ modifications for ADL. 3=Patient will improve strength/tolerance for activity to enable patient to perform ADL's. OT Research Animal Attendant Goals Research Animal Attendant Goals Time Frame: Mar 31, 2016 Eating (FIM): 6 Eating (QC): 6 Oral Hygiene (QC): 6 Grooming(FIM): 6 Bathing(FIM): 5 Shower/Bathe Self (QC): 4 Upper Body Dressing(FIM): 6 Upper Body Dressing (QC): 6 Lower Body Dressing(FIM): 5 Lower Body Dressing (QC): 4 On/Off Footwear (QC): 5 Toileting(FIM): 5 Toileting Hygiene (QC): 4 Toilet/Commode Transfer(FIM): 5 Toilet/Commode Transfer (QC): 4 Shower Transfer(FIM): 4 Additional Goals: 1-Demonstrate ADL Tasks, 2-Verbalize Understanding, 3- ImproveStrength/Mahad 1=Demonstrate adherence to instructed precautions during ADL tasks. 2=Patient will verbalize/demonstrate understanding of assistive devices/ modifications for ADL. 3=Patient will improve strength/tolerance for activity to enable patient to perform ADL's. OT Education/Plan Problem List/Assessment Pt demonstrates decreased mobility, strength, activity tolerance, and ADL performance. Pt to benefit from skilled OT intervention for ADL training, transfers, strengthening, adaptive equipment training as needed, and home safety education to maximize level of function and allow safe discharge. Discharge Recommendations Plan/Recommendations: Continue POC Treatment Plan/Plan of Care Patient would benefit from OT for education, treatment and training to promote independence in ADL's, mobility, safety and/or upper extremity function for ADL' s. Plan of Care: ADL Retraining, Functional Mobility, Group Exercise/Act as Ind, UE Funct Exercise/Act Treatment Duration: Mar 31, 2016 Visits Per Week: 10-11 Minutes/Day (M-F): 60-90 Minutes/Day (Sat/[place]): PRN Agreement: Yes Rehab Potential: Fair Time/GCodes Start Time: 09:00 Stop Time: 09:35 Total Time Billed (hr/min): 35 Billed Treatment Time 1 visit, ADLx2(35minutes) OLIVIA NELSON OT Mar 12, 2016 09:44
[2016-03-12 18:48] VITALS: BP 119/73
[2016-03-12] MEDS: POLYETHYLENE GLYCOL 17 GM (MIRALAX) PACK PO SCH (19:22)
[2016-03-12] MEDS: ENOXAPARIN 40 MG/0.4 ML (LOVENOX) SYR SC SCH (20:46)
[2016-03-12] MEDS: ATORVASTATIN 40 MG (LIPITOR) TABLET PO SCH (20:46)
[2016-03-12] MEDS: inSUlin DETERMIR 1 UNIT/0.01 ML (LEVEMIR) CHARGE PER UNIT SQ SCH (20:47)
[2016-03-13] MEDS: VANCOMYCIN ORAL 250 MG/5 ML 60 ML PO SCH ×8 (00:32→18:01)
[2016-03-13 03:59] VITALS: BP 116/74
[2016-03-13] MEDS: inSUlin (REGULAR) HUMAN 1 UNIT/0.01 ML (CHARGE PER UNIT) SC SCH ×4 (06:00→20:20)
[2016-03-13] MEDS: GABAPENTIN 600 MG (NEURONTIN) TAB PO SCH ×3 (08:17→20:29)
[2016-03-13] MEDS: LUBIPROSTONE 24 MCG CAP (AMITIZA) NON-FORMULARY PO SCH ×2 (08:17→19:31)
[2016-03-13] MEDS: DULoxetine 30 MG (CYMBALTA) CAP PO SCH (08:17)
[2016-03-13] MEDS: DILTIAZEM 30 MG (CARDIZEM) TAB PO SCH ×3 (08:17→20:29)
[2016-03-13] MEDS: SENNA W/DOCUSATE (SENOKOT S) TABLET PO SCH ×2 (08:17→19:32)
--- NOTE | 2016-03-13 13:48 | Cardiology Progress Note ---
Subjective Subjective/Events-last exam Patient is in a chair, feeling better, no new complaint, the patient and her , discussed her condition, all questions were answered. Review of Systems General: No Chills, No Night Sweats, No Fatigue, No Malaise, No Appetite, No Other HEENT: No Head Aches, No Visual Changes, No Eye Pain, No Ear Pain, No Dysphasia , No Sinus Congestion, No Post Nasal Drip, No Sore Throat, No Other Pulmonary: No Dyspnea, No Cough, No Pleuritic Chest Pain, No Other Cardiovascular: No: Chest Pain, Edema, Lt Headedness, Orthopnea, Other, Palpitations, Paroxysmal Noc. Dyspnea Objective-Cardiology Exam Last Set of Vital Signs Vital Signs 03/13/16 03:59 Temp 98.2 Pulse 88 Resp 16 B/P 116/74 Pulse Ox 99 O2 Delivery Room Air Capillary Refill : Less Than 3 Seconds I&O Intake and Output 03/13/16 00:00 Intake Total 1420 ml Output Total 3 ml Balance 1417 ml Intake Oral 1420 ml Output Urine Total 3 ml # Voids 4 # Bowel Movements 2 General: Alert, Oriented X3, Cooperative, No Acute Distress HEENT: Atraumatic, PERRLA, EOMI, Mucous Memb Moist/[place] Neck: Supple, No JVD Lungs: Clear to Auscultation Heart: Regular Rate Abdomen: Normal Bowel Sounds, Soft, No Tenderness Extremities: Other (left BKA from 02/01/16 OSH) Skin: Other (prssure sore on back) Neuro: Other (mild weakness RLE) Results Lab Laboratory Tests Test 03/12/16 16:14 03/12/16 20:33 03/13/16 06:08 03/13/16 11:30 Range/Units Glucometer 196 H 176 H 156 H 173 H 70-110 MG/DL A/P-Cardiology Admission Diagnosis Hypotension Paroxysmal atrial fibrillation Hyperlipidemia Peripheral arterial disease Diabetes mellitus Assessment/Plan Hypotension, probably secondary to hypovolemia in addition to her aggressive antihypertensive medications. Better at this time, stay off XOCHITL inhibitor, continue on Cardizem and monitor blood pressure. Paroxysmal atrial fibrillation, reporting episode of atrial fibrillation during her hospital stay in January at [facility]. She is not on oral anticoagulation, no signs of bleeding. Probably transient episode of atrial fibrillation. She denied any previous history prior to her surgery. No syncope was reported. Currently in sinus rhythm. Continue to monitor C. difficile colitis, still having diarrhea, treated by primary care physician History of hypertension, status post hypotension, blood pressure is better. Continue to monitor Peripheral arterial disease, extensive, continue to monitor closely. 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 Mild hypokalemia, monitor electrolytes Anemia, monitor H&H Hyperlipidemia, maintained on Lipitor. Monitor lipids Diabetes mellitus, followed and managed by primary care physician Tobaccoism, educated in length on smoking cessation Depression, anxiety. Managed by primary care physician Debility, receiving physical therapy Clinical Quality Measures DVT/VTE Risk/Contraindication: Risk Factor Score Per Nursin RFS Level Per Nursing on Admit: 4+=Very High MILADY SHANNON MD Mar 13, 2016 13:48
[2016-03-13 18:27] VITALS: BP 115/71
--- NOTE | 2016-03-13 18:33 | Wound Care Progress Note ---
Subjective Subjective Subjective/Events-last exam 55 year old female s/p L BKA with healing amputation wound, L knee pressure and sacral pressure injuries. The patient presented with gangrene of the L foot and sepsis, underwent L BKA, developed C.diff. colitis, diarrhea and sacral and L knee pressure injuries. She is admitted for rehab with the above wounds. Moderate pain in amputation site. Smokes. History of poor control of diabetes. PMH: Peripheral vascular disease, Diabetes mellitus, insulin dependent, chronic renal failure, Hx of C. diff. colitis,hypertension, atrial fibrillation. All: Tetanus FH: None pertinent. SH: Smokes, declines assistance with smoking cessation. Lives with . Review of Systems General: No Chills, Fatigue Appetite HEENT: No Head Aches, No Visual Changes Pulmonary: No Dyspnea Cardiovascular: No: Chest Pain Gastrointestinal: No: Abdominal Pain, Nausea, Vomiting Genitourinary: No Dysuria Musculoskeletal: : leg pain Neurological: : Weakness Integumentary -- Wounds of sacrum, L knee. Healing L BKA incision. Psych -- Some depression, anxious. Objective Exam Last Set of Vital Signs Vital Signs Date Time Temp Pulse Resp B/P Pulse Ox O2 Delivery O2 Flow Rate FiO2 03/13/16 03:59 98.2 88 16 116/74 99 Room Air Capillary Refill : Less Than 3 Seconds I&O Intake and Output 03/13/16 00:00 Intake Total 1420 ml Output Total 3 ml Balance 1417 ml Intake Oral 1420 ml Output Urine Total 3 ml # Voids 4 # Bowel Movements 2 General: Alert, No Acute Distress HEENT: Atraumatic Neck: Supple, No Thyromegaly Lungs: Clear to Auscultation, Normal Air Movement Heart: Regular Rate, No Murmurs Abdomen: Normal Bowel Sounds, Soft, No Tenderness Extremities: No Clubbing, No Cyanosis Skin: Other (L anterior Knee - 2.0 x 2.4 x 0.1 cm; 100% scab. Sacral area - cluster of 3 midline wounds, largest - 0.7 x 1.1 x 0.2 cm; base 100% biofilm.) Results Lab Laboratory Tests 03/12/16 20:33: Glucometer 176H 03/13/16 06:08: Glucometer 156H 03/13/16 11:30: Glucometer 173H 03/13/16 16:19: Glucometer 212H Microbiology 03/09/16 C. difficile GDH Antigen & Toxins - Final, Complete Assessment/Plan Assessment/Plan Assessment/Plan 1. Pressure ulcer, Sacrum, cluster of 3, Stage 3. 2. Pressure ulcer, L knee, Stage 2. 3. Peripheral vascular disease, s/p L BKA for gangrene. 4. Tobacco abuse, intentional self harm. 5. Diabetes mellitus, with wounds. Plan: Bordered foam to knee, Taya's Butt Paste to sacral area. QUINN HAWK MD Mar 13, 2016 18:33
[2016-03-13] MEDS ORDERED: ZINC OXIDE 16% OINT (BUTT PASTE) 113 GM TUBE TOP SCH (19:30)
[2016-03-13] MEDS: POLYETHYLENE GLYCOL 17 GM (MIRALAX) PACK PO SCH (19:32)
[2016-03-13] MEDS: ENOXAPARIN 40 MG/0.4 ML (LOVENOX) SYR SC SCH (20:29)
[2016-03-13] MEDS: ATORVASTATIN 40 MG (LIPITOR) TABLET PO SCH (20:29)
[2016-03-13] MEDS: inSUlin DETERMIR 1 UNIT/0.01 ML (LEVEMIR) CHARGE PER UNIT SQ SCH (20:30)
[2016-03-14] MEDS: VANCOMYCIN ORAL 250 MG/5 ML 60 ML PO SCH ×10 (00:24→23:39)
[2016-03-14] MEDS: LUBIPROSTONE 24 MCG CAP (AMITIZA) NON-FORMULARY PO SCH ×2 (04:40→20:16)
[2016-03-14] MEDS: SENNA W/DOCUSATE (SENOKOT S) TABLET PO SCH ×2 (04:40→20:17)
[2016-03-14] MEDS: inSUlin (REGULAR) HUMAN 1 UNIT/0.01 ML (CHARGE PER UNIT) SC SCH ×4 (06:00→20:53)
[2016-03-14 06:20] VITALS: BP 106/70
--- NOTE | 2016-03-14 08:15 | Cardiology Progress Note ---
Subjective Subjective/Events-last exam Patient is in bed, no new complaint, no chest pain or shortness of breath Review of Systems General: No Chills, No Night Sweats, No Fatigue, No Malaise, No Appetite, No Other HEENT: No Head Aches, No Visual Changes, No Eye Pain, No Ear Pain, No Dysphasia , No Sinus Congestion, No Post Nasal Drip, No Sore Throat, No Other Pulmonary: No Dyspnea, No Cough, No Pleuritic Chest Pain, No Other Cardiovascular: No: Chest Pain, Edema, Lt Headedness, Orthopnea, Other, Palpitations, Paroxysmal Noc. Dyspnea Objective-Cardiology Exam Last Set of Vital Signs Vital Signs 03/14/16 06:20 Temp 98.1 Pulse 85 Resp 16 B/P 106/70 Pulse Ox 97 O2 Delivery Room Air Capillary Refill : Less Than 3 Seconds I&O Intake and Output 03/14/16 00:00 Intake Total 1140 ml Balance 1140 ml Intake Oral 1140 ml # Voids 10 # Bowel Movements 6 General: Alert, Oriented X3, Cooperative, No Acute Distress HEENT: Atraumatic Neck: Supple, No JVD, No Thyromegaly Lungs: Clear to Auscultation, Normal Air Movement Heart: Regular Rate, Normal S1, Normal S2, No Murmurs Abdomen: Normal Bowel Sounds, Soft, No Tenderness Extremities: No Clubbing, No Cyanosis Skin: No Rashes, No Breakdown, No Significant Lesion, Other (L anterior Knee - 2.0 x 2.4 x 0.1 cm; 100% scab. Sacral area - cluster of 3 midline wounds, largest - 0.7 x 1.1 x 0.2 cm; base 100% biofilm.) Neuro: Normal Speech, Strength at 5/5 X4 Ext, Other (mild weakness RLE) Psych/Mental Status: Mental Status NL A/P-Cardiology Admission Diagnosis Hypotension Paroxysmal atrial fibrillation Hyperlipidemia Peripheral arterial disease Diabetes mellitus Assessment/Plan Hypotension, probably secondary to hypovolemia in addition to her aggressive antihypertensive medications. Better at this time, stay off XOCHITL inhibitor, continue on Cardizem and monitor blood pressure. Paroxysmal atrial fibrillation, reporting episode of atrial fibrillation during her hospital stay in January at [facility]. She is not on oral anticoagulation, no signs of bleeding. Probably transient episode of atrial fibrillation. She denied any previous history prior to her surgery. No syncope was reported. Currently in sinus rhythm. Continue to monitor C. difficile colitis, still having diarrhea, treated by primary care physician History of hypertension, status post hypotension, blood pressure is better. Continue to monitor Peripheral arterial disease, extensive, continue to monitor closely. 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 Mild hypokalemia, monitor electrolytes Anemia, monitor H&H Hyperlipidemia, maintained on Lipitor. Monitor lipids Diabetes mellitus, followed and managed by primary care physician Tobaccoism, educated in length on smoking cessation Depression, anxiety. Managed by primary care physician Debility, receiving physical therapy Clinical Quality Measures DVT/VTE Risk/Contraindication: Risk Factor Score Per Nursin RFS Level Per Nursing on Admit: 4+=Very High MILADY SHANNON MD Mar 14, 2016 08:15
--- NOTE | 2016-03-14 08:16 | Cardiac Procedure Note-CS/ASA ---
Pre-Procedure Note Pre-Op Procedure Note H&P Reviewed The H&P was reviewed, patient examined and no changes noted. Date H&P Reviewed: Mar 14, 2016 Time H&P Reviewed: 08:15 Conscious Sedation Pre-Proced Time Reviewed: 08:15 ASA Class: 3 Airway Mallampati Classification: ([place] appropriate class) I. II. III, IV Lungs Heart ASA score ASA 1: a normal healthy patient ASA 2: a patient with a mild systemic disease (mid diabetes, controlled hypertension, obesity x ASA 3: a patient with a severe systemic disease that limits activity (angina , COPD, prior Myocardial infarction) ASA 4: a patient with an incapacitating disease that is a constant threat to life (CHF, renal failure) ASA 5: a moribund patient not expected to survive 24 hrs. (ruptured aneurysm) ASA 6: a declared brain patient whose organs are being harvested. For emergent operations, add the letter E after the classification Grade 3 Sedation Plan: Analgesia, Amnesia, Plan communicated to team members, Discussed options with patient/fam, Discussed risks with patient/fam Note The patient is an appropriate candidate to undergo the planned procedure, sedation, and anesthesia. The patient immediately re-assessed prior to indication. MILADY SHANNON MD Mar 14, 2016 08:16
--- NOTE | 2016-03-14 08:18 | Cardiology Progress Note ---
Subjective Subjective/Events-last exam Patient sitting up in bed eating breakfast. No new complaint. Denies any CP, dizziness or palpitations. Review of Systems General: No Night Sweats, No Fatigue, No Malaise HEENT: No Visual Changes, No Dysphasia Pulmonary: No Dyspnea, No Cough Cardiovascular: No: Chest Pain, Orthopnea, Palpitations Gastrointestinal: No: Abdominal Pain, Nausea, Vomiting Genitourinary: No Dysuria, No Frequency Musculoskeletal: No: back pain, neck pain Neurological: No: Change in speech, Confusion, Numbness, Weakness Objective-Cardiology Exam Last Set of Vital Signs Vital Signs 03/14/16 06:20 Temp 98.1 Pulse 85 Resp 16 B/P 106/70 Pulse Ox 97 O2 Delivery Room Air Capillary Refill : Less Than 3 Seconds I&O Intake and Output 03/14/16 00:00 Intake Total 1140 ml Balance 1140 ml Intake Oral 1140 ml # Voids 10 # Bowel Movements 6 General: Alert, No Acute Distress HEENT: Atraumatic Neck: Supple, No Thyromegaly Lungs: Clear to Auscultation, Normal Air Movement Heart: Regular Rate, No Murmurs Abdomen: Normal Bowel Sounds, Soft, No Tenderness Extremities: No Clubbing, No Cyanosis Skin: Other (L anterior Knee - 2.0 x 2.4 x 0.1 cm; 100% scab. Sacral area - cluster of 3 midline wounds, largest - 0.7 x 1.1 x 0.2 cm; base 100% biofilm.) Neuro: Other (mild weakness RLE) A/P-Cardiology Admission Diagnosis Hypotension Paroxysmal atrial fibrillation Hyperlipidemia Peripheral arterial disease Diabetes mellitus Assessment/Plan Hypotension, probably secondary to hypovolemia in addition to her aggressive antihypertensive medications. Better at this time, stay off XOCHITL inhibitor, continue on Cardizem and monitor blood pressure. Paroxysmal atrial fibrillation, reporting episode of atrial fibrillation during her hospital stay in January at [facility]. She is not on oral anticoagulation, no signs of bleeding. Probably transient episode of atrial fibrillation. She denied any previous history prior to her surgery. No syncope was reported. Currently in sinus rhythm. Continue to monitor C. difficile colitis, still having diarrhea, treated by primary care physician History of hypertension, status post hypotension, blood pressure is better. Continue to monitor Peripheral arterial disease, extensive, continue to monitor closely. 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 Mild hypokalemia, monitor electrolytes Anemia, monitor H&H Hyperlipidemia, maintained on Lipitor. Monitor lipids Diabetes mellitus, followed and managed by primary care physician Tobaccoism, educated in length on smoking cessation Depression, anxiety. Managed by primary care physician Debility, receiving physical therapy Clinical Quality Measures DVT/VTE Risk/Contraindication: Risk Factor Score Per Nursin RFS Level Per Nursing on Admit: 4+=Very High LINH WALLACE Mar 14, 2016 08:18
--- NOTE | 2016-03-14 08:28 | Progress Note (SOAP) ---
Subjective Subjective/Events-last exam patient states she's feeling better. Diarrhea or is improving. Heart rate under control and blood pressure better. Objective Exam Vital Signs Date Time Temp Pulse Resp B/P Pulse Ox O2 Delivery O2 Flow Rate FiO2 03/14/16 06:20 98.1 85 16 106/70 97 Room Air 03/13/16 18:27 96.9 78 16 115/71 98 I & O 03/14/16 07:00 Intake Total 940 ml Balance 940 ml Capillary Refill : Less Than 3 Seconds General Appearance: No Apparent Distress WD/WN HEENT: Normal ENT Inspection Pharynx Normal Neck: Normal Inspection Non Tender Respiratory: Chest Non Tender Lungs Clear No Accessory Muscle Use No Respiratory Distress Cardiovascular: Regular Rate, Rhythm Results Lab Laboratory Tests 03/13/16 11:30: Glucometer 173H 03/13/16 16:19: Glucometer 212H 03/13/16 20:09: Glucometer 193H 03/14/16 05:29: Glucometer 169H Microbiology 03/09/16 C. difficile GDH Antigen & Toxins - Final, Complete Assessment/Plan Assessment/Plan Assess & Plan/Chief Complaint left below the knee amputation. Diabetes. Peripheral vascular disease. Depression history. Hypertension history. . 03/11/16 left below knee amputation. Diabetes. Peripheral vascular disease. History of hypertension. C. difficile. Hypotensive. Health lisinopril. . Left knee below amputation. Diabetes. Peripheral vascular disease. History of atrial fibrillation. Patient in sinus rhythm. Hypotension. C. difficile. Diarrhea improving Diagnosis/Problems: Clinical Quality Measures DVT/VTE Risk/Contraindication: Risk Factor Score Per Nursin RFS Level Per Nursing on Admit: 4+=Very High URSULA RENEE DO Mar 14, 2016 08:28
[2016-03-14] MEDS: DULoxetine 30 MG (CYMBALTA) CAP PO SCH (08:56)
[2016-03-14] MEDS: GABAPENTIN 600 MG (NEURONTIN) TAB PO SCH ×3 (08:56→20:16)
[2016-03-14] MEDS: DILTIAZEM 30 MG (CARDIZEM) TAB PO SCH ×3 (08:56→20:16)
--- NOTE | 2016-03-14 11:52 | Physical Therapy Daily Note ---
PT Daily Note-Current Subjective Patient reports she is very tired/fatigued today. Agrees to PT. Pain Numeric Pain Scale: 0-No Pain Location: No Pain Reported Mental Status Patient Orientation: Normal For Age Transfers Functional [place] Measure 0=Not Assessed/NA 4=Minimal Assistance 1=Total Assistance 5=Supervision or Setup 2=Maximal Assistance 6=Modified [place] 3=Moderate Assistance 7=Complete IndependenceIRFPAI Quality Coding Scale 6 Independent with activity with or without an assistive device 5 Patient requires set up or clean up by helper. Patient completes activity by themselves 4 Supervision or touching assist (CGA). [place] provide cues , steadying assist 3 The helper provides less than half the effort to complete the activity 2 The helper provides more than half the effort to complete the activity 1 Dependent. The helper does all the effort to complete an activity 7 Patient refused to complete or attempt activity 9 The patient did not perform the activity before the current illness or injury 88 Not attempted due to Medical conditions or safety concerns Transfers (B, C, W/C) (FIM): 3 Scootin Rollin Roll Left to Right (QC): 5 Supine to/from Sit: 5 Sit to/from Stand: 3 Sit to Lying (QC): 4 Sit to Stand (QC): 3 Chair/Fde-nw-Rrorb Xfer(QC): 3 Bed to/from Chair: 3 Car Transfer (QC): 88 Patient requires mod assist with all sit to stand transfers x 12 reps to FWW with standing exercises and dynamic balance/weight shifting exercises Exercises Seated Therapy Exercises: Ankle pumps, Long arc quads Seated Reps: 15 (2 sets) Standing: Heel/toe raises, Mini squats Standing Reps: 15 4 sets of standing exercises with patient performing GS in stand to promote improve standing balance and functional strength Assessment Patient fatigues very quickly and requires recovery periods due to fatigue. Patient returned to bed with bilateral LE elevated due to right LE edema. Education with patient on importance of activity, as well as energy conservation , to improve current LOF. PT Short Term Goals Short Term Goals Time Frame: Mar 17, 2016 Gait (FIM): 1 Gait Distance Comment: 10' Gait Level of Assist: 4 Gait Assistive Device: FWW Wheelchair Distance: 150' PT Care Home Goals Care Home Goals PT Care Home Goals Time Frame: Mar 31, 2016 Transfers (B,C,W/C) (FIM): 5 Sit to Lying (QC): 4 Lying-Sitting on Side/Bed(QC): 4 Sit to Stand (QC): 4 Rollin Roll Left to Right (QC): 4 Chair/Iur-yu-Rpvbr Xfer(QC): 4 Car Transfer (QC): 4 Gait (FIM): 1 Distance: 20' Walk 10 feet (QC): 4 Walk 10ft-Uneven Surface(QC): 4 Walk 50ft with 2 Turns (QC): 88 Walk 150 ft (QC): 88 Gait Level of Assist: 5 Gait Assistive Device: FWW Wheelchair (FIM): 6 Distance: 150' Wheelchair Level of Assist: 6 Wheel 50 feet with 2 turns (QC: 6 Stairs (FIM): 2 # of Steps: 4 1 Step (curb) (QC): 4 4 Steps (QC): 4 12 Steps (QC): 88 Stairs Level Of Assist: 4 Picking up an Object (QC): 88 PT Plan Problem List Problem List: Activity Tolerance, Functional Strength Treatment/Plan Treatment Plan: Continue Plan of Care Treatment Plan: Bed Mobility, Education, Functional Activity Mahad, Functional Strength, Group Therapy, Gait, Safety, Therapeutic Exercise, Transfers Treatment Duration: Mar 31, 2016 Visits Per Week: 10-11 Minutes/Day (M-F): 60-90 Minutes/Day (Sat/[place]): 15-30 Safety Risks/Education Patient Education: Transfer Techniques, Disease Process, Safety Issues Teaching Recipient: Patient Teaching Methods: Discussion Response to Teaching: Verbalize Understanding Time/GCodes Time In: 1100 Time Out: 1200 Total Billed Treatment Time: 60 Total Billed Treatment 1 visit FA x 3 40 min EX 20 min DEE FLORES PT Mar 14, 2016 11:52
--- NOTE | 2016-03-14 13:51 | Occupational Ther Daily Note ---
OT Current Status-Daily Note Subjective Pt in bed; family present. Pt agrees to treatment this am. Mental Status/Objective Functional [place] Measure 0=Not Assessed/NA 4=Minimal Assistance 1=Total Assistance 5=Supervision or Setup 2=Maximal Assistance 6=Modified [place] 3=Moderate Assistance 7=Complete [place] ADL-Treatment Pt supine to sit with SBA. RN reports pt okay to shower if left LE covered to prevent getting wet. Pt agrees to shower this am. Sit to stand and transfer to shower chair with moderate assistance using FWW. To shower via rolling shower chair. Upper body bathing completed with SBA. Pt able to wash bilateral upper legs and srinivasa area with SBA. Assist required to wash buttocks and right lower leg/foot. Increased time for bathing. Don pullover shirt with set up. Pt required maximal assistance to don Depends and pants. Stood with moderate assistance for balance during pant hike. Pt requires assist to pull pants up over hips secondary to decreased balance. Don right sock with set up. Grooming tasks completed seated at sink. Pt brushed teeth, combed hair, and shaved face with modified independence. Transfer to[facility]from [facility] with moderate assistance using FWW. Pt able to complete toileting hygiene,but requires assist for pants up/down. Pt sitting in w/c with needs met after session. Functional [place] Measure 0=Not Assessed/NA 4=Minimal Assistance 1=Total Assistance 5=Supervision or Setup 2=Maximal Assistance 6=Modified [place] 3=Moderate Assistance 7=Complete IndependenceIRFPAI Quality Coding Scale 6 Independent with activity with or without an assistive device 5 Patient requires set up or clean up by helper. Patient completes activity by themselves 4 Supervision or touching assist (CGA). [place] provide cues , steadying assist 3 The helper provides less than half the effort to complete the activity 2 The helper provides more than half the effort to complete the activity 1 Dependent. The helper does all the effort to complete an activity 7 Patient refused to complete or attempt activity 9 The patient did not perform the activity before the current illness or injury 88 Not attempted due to Medical conditions or safety concerns Grooming (FIM): 6 Bathing (FIM): 5 Lower Body Dressing (FIM): 2 Toileting (FIM): 2 Toilet/Commode Transfer (FIM): 3 Shower Transfer(FIM): 1 OT Short Term Goals Short Term Goals Time Frame: Mar 17, 2016 Bathing(FIM): 4 Lower Body Dressing(FIM): 3 Toileting(FIM): 3 Toilet/Commode Transfer(FIM): 4 Shower Transfer(FIM): 3 Additional Short Term Goals: 1-Demonstrate ADL Tasks, 2-Verbalize Understanding , 3-ImproveStrength/Mahad 1=Demonstrate adherence to instructed precautions during ADL tasks. 2=Patient will verbalize/demonstrate understanding of assistive devices/ modifications for ADL. 3=Patient will improve strength/tolerance for activity to enable patient to perform ADL's. OT Pigment Pusher Goals Pigment Pusher Goals Time Frame: Mar 31, 2016 Eating (FIM): 6 Eating (QC): 6 Oral Hygiene (QC): 6 Grooming(FIM): 6 Bathing(FIM): 5 Shower/Bathe Self (QC): 4 Upper Body Dressing(FIM): 6 Upper Body Dressing (QC): 6 Lower Body Dressing(FIM): 5 Lower Body Dressing (QC): 4 On/Off Footwear (QC): 5 Toileting(FIM): 5 Toileting Hygiene (QC): 4 Toilet/Commode Transfer(FIM): 5 Toilet/Commode Transfer (QC): 4 Shower Transfer(FIM): 4 Additional Goals: 1-Demonstrate ADL Tasks, 2-Verbalize Understanding, 3- ImproveStrength/Mahad 1=Demonstrate adherence to instructed precautions during ADL tasks. 2=Patient will verbalize/demonstrate understanding of assistive devices/ modifications for ADL. 3=Patient will improve strength/tolerance for activity to enable patient to perform ADL's. OT Education/Plan Problem List/Assessment Pt demonstrates decreased mobility, strength, activity tolerance, and ADL performance. Pt to benefit from skilled OT intervention for ADL training, transfers, strengthening, adaptive equipment training as needed, and home safety education to maximize level of function and allow safe discharge. Discharge Recommendations Plan/Recommendations: Continue POC Treatment Plan/Plan of Care Patient would benefit from OT for education, treatment and training to promote independence in ADL's, mobility, safety and/or upper extremity function for ADL' s. Plan of Care: ADL Retraining, Functional Mobility, Group Exercise/Act as Ind, UE Funct Exercise/Act Treatment Duration: Mar 31, 2016 Visits Per Week: 10-11 Minutes/Day (M-F): 60-90 Minutes/Day (Sat/[place]): PRN Agreement: Yes Rehab Potential: Fair Time/GCodes Start Time: 10:00 Stop Time: 11:00 Total Time Billed (hr/min): 60 Billed Treatment Time 1 visit, ADLx4(60minutes) OLIVIA NELSON OT Mar 14, 2016 13:51
--- NOTE | 2016-03-14 13:56 | Occupational Ther Daily Note ---
OT Current Status-Daily Note Subjective Pt agreeable to treatment this pm. Pt emotional secondary to family going home today. Mental Status/Objective Functional [place] Measure 0=Not Assessed/NA 4=Minimal Assistance 1=Total Assistance 5=Supervision or Setup 2=Maximal Assistance 6=Modified [place] 3=Moderate Assistance 7=Complete [place] ADL-Treatment Pt requests to use BSC. Supine to sit with supervision. Pt donned right shoe with set up. Sit to stand with moderate assistance. Transfer to BSC with moderate assistance using FWW, skilled cues for technique and safety. Pt requires assist for clothing management, but is able to perform toileting hygiene. Transfer to w/c with moderate assistance. Functional [place] Measure 0=Not Assessed/NA 4=Minimal Assistance 1=Total Assistance 5=Supervision or Setup 2=Maximal Assistance 6=Modified [place] 3=Moderate Assistance 7=Complete IndependenceIRFPAI Quality Coding Scale 6 Independent with activity with or without an assistive device 5 Patient requires set up or clean up by helper. Patient completes activity by themselves 4 Supervision or touching assist (CGA). [place] provide cues , steadying assist 3 The helper provides less than half the effort to complete the activity 2 The helper provides more than half the effort to complete the activity 1 Dependent. The helper does all the effort to complete an activity 7 Patient refused to complete or attempt activity 9 The patient did not perform the activity before the current illness or injury 88 Not attempted due to Medical conditions or safety concerns Toileting (FIM): 2 Toilet/Commode Transfer (FIM): 3 Other Treatment Pt performed bilateral UE exercises while seated to promote increased strength for ADLs and transfers. Pt performed shoulder flexion, abduction, biceps curls, and triceps extension exercises x20 reps with green theraband, rest breaks between exercises. Pt sitting in w/c with needs met after session. OT Short Term Goals Short Term Goals Time Frame: Mar 17, 2016 Bathing(FIM): 4 Lower Body Dressing(FIM): 3 Toileting(FIM): 3 Toilet/Commode Transfer(FIM): 4 Shower Transfer(FIM): 3 Additional Short Term Goals: 1-Demonstrate ADL Tasks, 2-Verbalize Understanding , 3-ImproveStrength/Mahad 1=Demonstrate adherence to instructed precautions during ADL tasks. 2=Patient will verbalize/demonstrate understanding of assistive devices/ modifications for ADL. 3=Patient will improve strength/tolerance for activity to enable patient to perform ADL's. OT Chief Cloth Finishing Range Operator Goals Fpc Goals Time Frame: Mar 31, 2016 Eating (FIM): 6 Eating (QC): 6 Oral Hygiene (QC): 6 Grooming(FIM): 6 Bathing(FIM): 5 Shower/Bathe Self (QC): 4 Upper Body Dressing(FIM): 6 Upper Body Dressing (QC): 6 Lower Body Dressing(FIM): 5 Lower Body Dressing (QC): 4 On/Off Footwear (QC): 5 Toileting(FIM): 5 Toileting Hygiene (QC): 4 Toilet/Commode Transfer(FIM): 5 Toilet/Commode Transfer (QC): 4 Shower Transfer(FIM): 4 Additional Goals: 1-Demonstrate ADL Tasks, 2-Verbalize Understanding, 3- ImproveStrength/Mahad 1=Demonstrate adherence to instructed precautions during ADL tasks. 2=Patient will verbalize/demonstrate understanding of assistive devices/ modifications for ADL. 3=Patient will improve strength/tolerance for activity to enable patient to perform ADL's. OT Education/Plan Problem List/Assessment Pt demonstrates decreased mobility, strength, activity tolerance, and ADL performance. Pt to benefit from skilled OT intervention for ADL training, transfers, strengthening, adaptive equipment training as needed, and home safety education to maximize level of function and allow safe discharge. Discharge Recommendations Plan/Recommendations: Continue POC Treatment Plan/Plan of Care Patient would benefit from OT for education, treatment and training to promote independence in ADL's, mobility, safety and/or upper extremity function for ADL' s. Plan of Care: ADL Retraining, Functional Mobility, Group Exercise/Act as Ind, UE Funct Exercise/Act Treatment Duration: Mar 31, 2016 Visits Per Week: 10-11 Minutes/Day (M-F): 60-90 Minutes/Day (Sat/[place]): PRN Agreement: Yes Rehab Potential: Fair Time/GCodes Start Time: 13:00 Stop Time: 13:30 Total Time Billed (hr/min): 30 Billed Treatment Time 1 visit, ADL(15minutes), Ex(15minutes) OLIVIA NELSON OT Mar 14, 2016 13:56
--- NOTE | 2016-03-14 15:29 | Physical Therapy Daily Note ---
PT Daily Note-Current Subjective Patient is up in w/c and agrees to PT. Patient states she is very fatigued and agreed to bed exercises. Pain Numeric Pain Scale: 0-No Pain Location: No Pain Reported Mental Status Patient Orientation: Normal For Age Transfers Functional [place] Measure 0=Not Assessed/NA 4=Minimal Assistance 1=Total Assistance 5=Supervision or Setup 2=Maximal Assistance 6=Modified [place] 3=Moderate Assistance 7=Complete IndependenceIRFPAI Quality Coding Scale 6 Independent with activity with or without an assistive device 5 Patient requires set up or clean up by helper. Patient completes activity by themselves 4 Supervision or touching assist (CGA). [place] provide cues , steadying assist 3 The helper provides less than half the effort to complete the activity 2 The helper provides more than half the effort to complete the activity 1 Dependent. The helper does all the effort to complete an activity 7 Patient refused to complete or attempt activity 9 The patient did not perform the activity before the current illness or injury 88 Not attempted due to Medical conditions or safety concerns Transfers (B, C, W/C) (FIM): 4 Scootin Rollin Roll Left to Right (QC): 5 Supine to/from Sit: 5 Sit to Lying (QC): 5 Chair/Zsi-vi-Rmpfw Xfer(QC): 4 Bed to/from Chair: 4 scoot transfer with left armrest removed to allow patient safe transfer w/c to bed Exercises Supine Ex: Bridging, Ankle pumps, Quad Set, Rolling (5 reps), Heel Slides, Straight leg raise, Hip abd/add Supine Reps: 20 Treatments bilateral LE exercises to improve functional strength to address mobility. Patient is limited with right LE MMT due to DM/neuropathy Assessment Patient tolerated treatment well and remained side lying to right with pillow between LE's and behind back. Patient is slowly improving with treatment plan. PT Short Term Goals Short Term Goals Time Frame: Mar 17, 2016 Gait (FIM): 1 Gait Distance Comment: 10' Gait Level of Assist: 4 Gait Assistive Device: FWW Wheelchair Distance: 150' PT Criminal Investigator Goals Halfway Goals PT Halfway Goals Time Frame: Mar 31, 2016 Transfers (B,C,W/C) (FIM): 5 Sit to Lying (QC): 4 Lying-Sitting on Side/Bed(QC): 4 Sit to Stand (QC): 4 Rollin Roll Left to Right (QC): 4 Chair/Mop-lf-Xitep Xfer(QC): 4 Car Transfer (QC): 4 Gait (FIM): 1 Distance: 20' Walk 10 feet (QC): 4 Walk 10ft-Uneven Surface(QC): 4 Walk 50ft with 2 Turns (QC): 88 Walk 150 ft (QC): 88 Gait Level of Assist: 5 Gait Assistive Device: FWW Wheelchair (FIM): 6 Distance: 150' Wheelchair Level of Assist: 6 Wheel 50 feet with 2 turns (QC: 6 Stairs (FIM): 2 # of Steps: 4 1 Step (curb) (QC): 4 4 Steps (QC): 4 12 Steps (QC): 88 Stairs Level Of Assist: 4 Picking up an Object (QC): 88 PT Plan Treatment/Plan Treatment Plan: Continue Plan of Care Treatment Plan: Bed Mobility, Education, Functional Activity Mahad, Functional Strength, Group Therapy, Gait, Safety, Therapeutic Exercise, Transfers Treatment Duration: Mar 31, 2016 Visits Per Week: 10-11 Minutes/Day (M-F): 60-90 Minutes/Day (Sat/[place]): 15-30 Time/GCodes Time In: 1440 Time Out: 1510 Total Billed Treatment Time: 30 Total Billed Treatment 1 visit EX x 2 30 min DEE FLORES PT Mar 14, 2016 15:29
[2016-03-14 18:00] VITALS: BP 120/80
--- NOTE | 2016-03-14 18:47 | PM & R (SOAP) Progress Note ---
Subjective Subjective/Events-last exam Patient was seen in her room this evening Requests PRN order for lasix due to swelling in rt foot Also asks about RX for Prosthesis Informed her that her Surgeon will usually deal with that once residual limb ready for wt bearing.Patient min assist for transfers.Patient now on Vanco for ongoing treatment of C DIF Bowel colitis Review of Systems Gastrointestinal: : Other (loose stools) Objective Exam Last Set of Vital Signs Vital Signs Date Time Temp Pulse Resp B/P Pulse Ox O2 Delivery O2 Flow Rate FiO2 03/14/16 06:20 98.1 85 16 106/70 97 Room Air Capillary Refill : Less Than 3 Seconds I&O Intake and Output 03/14/16 00:00 Intake Total 1140 ml Balance 1140 ml Intake Oral 1140 ml # Voids 10 # Bowel Movements 6 General: Alert, Oriented X3, Cooperative, No Acute Distress HEENT: Atraumatic Neck: Supple, No JVD, No Thyromegaly Lungs: Clear to Auscultation, Normal Air Movement Heart: Regular Rate, Normal S1, Normal S2, No Murmurs Abdomen: Normal Bowel Sounds, Soft, No Tenderness Extremities: No Clubbing, No Cyanosis Skin: No Rashes, No Breakdown, No Significant Lesion, Other (L anterior Knee - 2.0 x 2.4 x 0.1 cm; 100% scab. Sacral area - cluster of 3 midline wounds, largest - 0.7 x 1.1 x 0.2 cm; base 100% biofilm.) Neuro: Normal Speech, Strength at 5/5 X4 Ext, Other (mild weakness RLE) Psych/Mental Status: Mental Status NL Results Lab Laboratory Tests 03/11/16 21:35: Glucometer 233H 03/12/16 06:13: Glucometer 84 03/12/16 11:20: Glucometer 133H 03/12/16 16:14: Glucometer 196H 03/12/16 20:33: Glucometer 176H 03/13/16 06:08: Glucometer 156H 03/13/16 11:30: Glucometer 173H 03/13/16 16:19: Glucometer 212H 03/13/16 20:09: Glucometer 193H 03/14/16 05:29: Glucometer 169H 03/14/16 11:43: Glucometer 172H 03/14/16 16:43: Glucometer 179H Microbiology 03/09/16 C. difficile GDH Antigen & Toxins - Final, Complete Assessment/Plan Assessment Left BKA 02-01-16 OSH for gangrenous left foot Postop C DIF bowel colitis associated with sepsis treated at OSH-now on Vanco for ongoing treatment Mild Hypokalemia Mild postop Anemia IDDM controlled HTN with hx of afib now sinus with hypotension depression on meds Tobaccoism declines Smoking cessation Trace edema rt ankle Uncertain if patient would tolerate Freddy hose-Lasix prn ordered Plan Continue PT/OT as tolerated DR Barrios to see re cardiac meds with echo ordered-done appreciate his consult recheck labs-done Lasix PRN Completed course of Flagyl for Cdif now on course of Vanco IRMA ESPINOZA MD Mar 14, 2016 18:46
[2016-03-14] MEDS ORDERED: FUROSEMIDE 40 MG (LASIX) TAB PO NR (19:00)
[2016-03-14] MEDS: ENOXAPARIN 40 MG/0.4 ML (LOVENOX) SYR SC SCH (20:16)
[2016-03-14] MEDS: ATORVASTATIN 40 MG (LIPITOR) TABLET PO SCH (20:16)
[2016-03-14] MEDS: POLYETHYLENE GLYCOL 17 GM (MIRALAX) PACK PO SCH (20:17)
[2016-03-14] MEDS: inSUlin DETERMIR 1 UNIT/0.01 ML (LEVEMIR) CHARGE PER UNIT SQ SCH (20:53)
[2016-03-14] MEDS: ALPRAZolam 0.5 MG (XANAX) TAB PO PRN (22:03)
[2016-03-15] MEDS: oxyCODONE/APAP 5/325MG (PERCOCET 5) TABLET PO PRN ×2 (02:51→20:14)
[2016-03-15] MEDS: inSUlin (REGULAR) HUMAN 1 UNIT/0.01 ML (CHARGE PER UNIT) SC SCH ×4 (06:00→20:23)
[2016-03-15] MEDS: VANCOMYCIN ORAL 250 MG/5 ML 60 ML PO SCH ×8 (06:03→23:42)
[2016-03-15 06:05] VITALS: BP 102/66
--- NOTE | 2016-03-15 08:16 | Cardiology Progress Note ---
Subjective Subjective/Events-last exam Patient sitting up in chair eating breakfast. No new complaints. Denies any CP or dyspnea. Review of Systems General: No Night Sweats, No Fatigue, No Malaise HEENT: No Visual Changes, No Ear Pain, No Dysphasia Pulmonary: No Dyspnea, No Cough Cardiovascular: No: Chest Pain, Orthopnea, Palpitations Gastrointestinal: No: Abdominal Pain, Nausea, Vomiting Genitourinary: No Dysuria, No Frequency Musculoskeletal: No: back pain, neck pain Neurological: No: Change in speech, Confusion, Numbness, Weakness Objective-Cardiology Exam Last Set of Vital Signs Vital Signs 03/15/16 06:05 Temp 96.4 Pulse 92 Resp 18 B/P 102/66 Pulse Ox 95 O2 Delivery Room Air Capillary Refill : Less Than 3 Seconds I&O Intake and Output 03/15/16 00:00 Intake Total 1920 ml Balance 1920 ml Intake Oral 1920 ml # Voids 9 # Bowel Movements 6 General: Alert, Oriented X3, Cooperative, No Acute Distress HEENT: Atraumatic Neck: Supple, No JVD, No Thyromegaly Lungs: Clear to Auscultation, Normal Air Movement Heart: Regular Rate, Normal S1, Normal S2, No Murmurs Abdomen: Normal Bowel Sounds, Soft, No Tenderness Extremities: No Clubbing, No Cyanosis Skin: No Rashes, No Breakdown, No Significant Lesion, Other (L anterior Knee - 2.0 x 2.4 x 0.1 cm; 100% scab. Sacral area - cluster of 3 midline wounds, largest - 0.7 x 1.1 x 0.2 cm; base 100% biofilm.) Neuro: Normal Speech, Strength at 5/5 X4 Ext, Other (mild weakness RLE) Psych/Mental Status: Mental Status NL A/P-Cardiology Admission Diagnosis Hypotension Paroxysmal atrial fibrillation Hyperlipidemia Peripheral arterial disease Diabetes mellitus Assessment/Plan Hypotension, probably secondary to hypovolemia in addition to her aggressive antihypertensive medications. Better at this time, stay off XOCHITL inhibitor, continue on Cardizem and monitor blood pressure. Paroxysmal atrial fibrillation, reporting episode of atrial fibrillation during her hospital stay in January at [facility]. She is not on oral anticoagulation, no signs of bleeding. Probably transient episode of atrial fibrillation. She denied any previous history prior to her surgery. No syncope was reported. Currently in sinus rhythm. Continue to monitor C. difficile colitis, still having diarrhea, treated by primary care physician History of hypertension, status post hypotension, blood pressure is better. Continue to monitor Peripheral arterial disease, extensive, continue to monitor closely. 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 Mild hypokalemia, monitor electrolytes Anemia, monitor H&H Hyperlipidemia, maintained on Lipitor. Monitor lipids Diabetes mellitus, followed and managed by primary care physician Tobaccoism, educated in length on smoking cessation Depression, anxiety. Managed by primary care physician Debility, receiving physical therapy Clinical Quality Measures DVT/VTE Risk/Contraindication: Risk Factor Score Per Nursin RFS Level Per Nursing on Admit: 4+=Very High LINH WALLACE Mar 15, 2016 08:16
--- NOTE | 2016-03-15 08:33 | Progress Note (SOAP) ---
Subjective Subjective/Events-last exam patient feeling better. Blood pressure better. Heart rate under control. Objective Exam Vital Signs Date Time Temp Pulse Resp B/P Pulse Ox O2 Delivery O2 Flow Rate FiO2 03/15/16 06:05 96.4 92 18 102/66 95 Room Air 03/14/16 18:00 98.5 95 20 120/80 99 Room Air I & O 03/15/16 07:00 Intake Total 1920 ml Balance 1920 ml Capillary Refill : Less Than 3 Seconds General Appearance: No Apparent Distress WD/WN Results Lab Laboratory Tests 03/14/16 11:43: Glucometer 172H 03/14/16 16:43: Glucometer 179H 03/14/16 20:52: Glucometer 193H 03/15/16 05:56: Glucometer 161H Microbiology 03/09/16 C. difficile GDH Antigen & Toxins - Final, Complete Assessment/Plan Assessment/Plan Assess & Plan/Chief Complaint left below the knee amputation. Diabetes. Peripheral vascular disease. Depression history. Hypertension history. . 03/11/16 left below knee amputation. Diabetes. Peripheral vascular disease. History of hypertension. C. difficile. Hypotensive. Health lisinopril. . Left knee below amputation. Diabetes. Peripheral vascular disease. History of atrial fibrillation. Patient in sinus rhythm. Hypotension. C. difficile. Diarrhea improving. . 03/15/16. Left below the knee amputation. Diabetes. Peripheral vascular disease. Depression history. Atrial fib. Blood pressure goodt and heart rate within normal limits Diagnosis/Problems: Clinical Quality Measures DVT/VTE Risk/Contraindication: Risk Factor Score Per Nursin RFS Level Per Nursing on Admit: 4+=Very High URSULA RENEE DO Mar 15, 2016 08:33
[2016-03-15] MEDS: DULoxetine 30 MG (CYMBALTA) CAP PO SCH (08:43)
[2016-03-15] MEDS: DILTIAZEM 30 MG (CARDIZEM) TAB PO SCH ×3 (08:44→20:14)
[2016-03-15] MEDS: GABAPENTIN 600 MG (NEURONTIN) TAB PO SCH ×3 (08:44→20:14)
[2016-03-15] MEDS: SENNA W/DOCUSATE (SENOKOT S) TABLET PO SCH (08:44)
[2016-03-15] MEDS: LUBIPROSTONE 24 MCG CAP (AMITIZA) NON-FORMULARY PO SCH (08:45)
--- NOTE | 2016-03-15 10:16 | Physical Therapy Daily Note ---
PT Daily Note-Current Subjective Pt. agrees to Rx. Expresses during Rx that she is frustrated by getting weak so quickly into Rx. Pt. initially states she has tried a slide board before at different hospital and didnt like it but today states she sees that it is of use in her circumstance at this time. Pain Numeric Pain Scale: 0-No Pain Mental Status Patient Orientation: Normal For Age Transfers Functional [place] Measure 0=Not Assessed/NA 4=Minimal Assistance 1=Total Assistance 5=Supervision or Setup 2=Maximal Assistance 6=Modified [place] 3=Moderate Assistance 7=Complete IndependenceIRFPAI Quality Coding Scale 6 Independent with activity with or without an assistive device 5 Patient requires set up or clean up by helper. Patient completes activity by themselves 4 Supervision or touching assist (CGA). [place] provide cues , steadying assist 3 The helper provides less than half the effort to complete the activity 2 The helper provides more than half the effort to complete the activity 1 Dependent. The helper does all the effort to complete an activity 7 Patient refused to complete or attempt activity 9 The patient did not perform the activity before the current illness or injury 88 Not attempted due to Medical conditions or safety concerns Transfers (B, C, W/C) (FIM): 2 Scootin Rollin Supine to/from Sit: 5 Sit to/from Stand: 2 Bed to/from Chair: 2 SPT w/c to bed and back required MAX assist, utilizing slide board (larger curved type) was min assist with pt. quickly learning placement and realizing her indep with this AD Wheelchair Training Does the Pt Use a Wheelchair?: Yes Wheelchair (FIM): 2 Wheelchair Distance: 4=094-82 ft (50 with many turns etc) Wheelchair Level of Assist: 3 Type of Wheelchair: Manual requires assist to manuever w/c in room and align correctly etc Exercises Supine Ex: Bridging (very weak), Ankle pumps, Quad Set, Rolling, Glut sets, Heel Slides, Knee to chest, Short Arc Quads, Scooting, Straight leg raise, Hip abd/add Supine Reps: 15 Seated Therapy Exercises: Ankle pumps, Long arc quads, Chair press-ups, Hip flexion Seated Reps: 15 Treatments slide board TRFs with curved slide board x2 trials into and out of w/c with min assist Assessment Current Status: Good Progress fatigues quickly PT Short Term Goals Short Term Goals Time Frame: Mar 17, 2016 Gait (FIM): 1 Gait Distance Comment: 10' Gait Level of Assist: 4 Gait Assistive Device: FWW Wheelchair Distance: 150' PT Technical Services Manager Goals Technical Services Manager Goals PT Technical Services Manager Goals Time Frame: Mar 31, 2016 Transfers (B,C,W/C) (FIM): 5 Sit to Lying (QC): 4 Lying-Sitting on Side/Bed(QC): 4 Sit to Stand (QC): 4 Rollin Roll Left to Right (QC): 4 Chair/Dmi-yq-Vbuzh Xfer(QC): 4 Car Transfer (QC): 4 Gait (FIM): 1 Distance: 20' Walk 10 feet (QC): 4 Walk 10ft-Uneven Surface(QC): 4 Walk 50ft with 2 Turns (QC): 88 Walk 150 ft (QC): 88 Gait Level of Assist: 5 Gait Assistive Device: FWW Wheelchair (FIM): 6 Distance: 150' Wheelchair Level of Assist: 6 Wheel 50 feet with 2 turns (QC: 6 Stairs (FIM): 2 # of Steps: 4 1 Step (curb) (QC): 4 4 Steps (QC): 4 12 Steps (QC): 88 Stairs Level Of Assist: 4 Picking up an Object (QC): 88 PT Plan Treatment/Plan Treatment Plan: Continue Plan of Care Treatment Plan: Bed Mobility, Education, Functional Activity Mahad, Functional Strength, Group Therapy, Gait, Safety, Therapeutic Exercise, Transfers Treatment Duration: Mar 31, 2016 Visits Per Week: 10-11 Minutes/Day (M-F): 60-90 Minutes/Day (Sat/[place]ola): 15-30 Safety Risks/Education Patient Education: Transfer Techniques, Issued Written HEP, Correct Positioning , W/C Management, Disease Process, Safety Issues Teaching Recipient: Patient Teaching Methods: Demonstration, Discussion Response to Teaching: Verbalize Understanding, Return Demonstration, Reinforcement Needed slide brd TRF training Time/GCodes Time In: 915 Time Out: 1015 Total Billed Treatment Time: 60 Total Billed Treatment 1,FA40m,EX20m G Codes Necessary: MARINO Roca PAYROLL AUDITOR Mar 15, 2016 10:16
--- NOTE | 2016-03-15 12:01 | Occupational Ther Daily Note ---
OT Current Status-Daily Note Subjective Pt sitting in chair finishing breakfast, agrees to treatment. Mental Status/Objective Functional [place] Measure 0=Not Assessed/NA 4=Minimal Assistance 1=Total Assistance 5=Supervision or Setup 2=Maximal Assistance 6=Modified [place] 3=Moderate Assistance 7=Complete [place] ADL-Treatment Pt declined bathing today, requests to dress. Pt able to start pants over right foot and pull up to knees. Sit to stand with moderate assistance for pant hike. Pt able to pull pants up on right side and partially on left, but requires assist to fully pull up on left. Pt donned right shoe with set up. Sit to stand and transfer to [facility] with moderate assistance using FWW. Pt able to perform toileting hygiene, but requires assist for pants up/down. Pt fatigues with activity and required maximal assistance to stand from BSC and transfer back to w/c. Functional [place] Measure 0=Not Assessed/NA 4=Minimal Assistance 1=Total Assistance 5=Supervision or Setup 2=Maximal Assistance 6=Modified [place] 3=Moderate Assistance 7=Complete IndependenceIRFPAI Quality Coding Scale 6 Independent with activity with or without an assistive device 5 Patient requires set up or clean up by helper. Patient completes activity by themselves 4 Supervision or touching assist (CGA). [place] provide cues , steadying assist 3 The helper provides less than half the effort to complete the activity 2 The helper provides more than half the effort to complete the activity 1 Dependent. The helper does all the effort to complete an activity 7 Patient refused to complete or attempt activity 9 The patient did not perform the activity before the current illness or injury 88 Not attempted due to Medical conditions or safety concerns Toileting Hygiene (QC): 2 Lower Body Dressing (FIM): 3 On/Off Footwear (QC): 5 Toilet/Commode Transfer (FIM): 2 Other Treatment Pt performed bilateral UE exercises while seated to increase strength needed for ADLs and transfers. Pt completed shoulder abduction, flexion, horizontal abduction, biceps curls, and triceps extension exercises x20 reps with green theraband. Rest breaks between exercises. Pt able to track reps and switch sides independently. Pt completed putty activity with bilateral hands to increase strength. Pt then able to remove small beads from putty with bilateral hands to increase coordination. Pt sitting in w/c with needs met after session. OT Short Term Goals Short Term Goals Time Frame: Mar 17, 2016 Bathing(FIM): 4 Lower Body Dressing(FIM): 3 Toileting(FIM): 3 Toilet/Commode Transfer(FIM): 4 Shower Transfer(FIM): 3 Additional Short Term Goals: 1-Demonstrate ADL Tasks, 2-Verbalize Understanding , 3-ImproveStrength/Mahad 1=Demonstrate adherence to instructed precautions during ADL tasks. 2=Patient will verbalize/demonstrate understanding of assistive devices/ modifications for ADL. 3=Patient will improve strength/tolerance for activity to enable patient to perform ADL's. OT Plastics Plater Goals Plastics Plater Goals Time Frame: Mar 31, 2016 Eating (FIM): 6 Eating (QC): 6 Oral Hygiene (QC): 6 Grooming(FIM): 6 Bathing(FIM): 5 Shower/Bathe Self (QC): 4 Upper Body Dressing(FIM): 6 Upper Body Dressing (QC): 6 Lower Body Dressing(FIM): 5 Lower Body Dressing (QC): 4 On/Off Footwear (QC): 5 Toileting(FIM): 5 Toileting Hygiene (QC): 4 Toilet/Commode Transfer(FIM): 5 Toilet/Commode Transfer (QC): 4 Shower Transfer(FIM): 4 Additional Goals: 1-Demonstrate ADL Tasks, 2-Verbalize Understanding, 3- ImproveStrength/Mahad 1=Demonstrate adherence to instructed precautions during ADL tasks. 2=Patient will verbalize/demonstrate understanding of assistive devices/ modifications for ADL. 3=Patient will improve strength/tolerance for activity to enable patient to perform ADL's. OT Education/Plan Problem List/Assessment Pt demonstrates decreased mobility, strength, activity tolerance, and ADL performance. Pt to benefit from skilled OT intervention for ADL training, transfers, strengthening, adaptive equipment training as needed, and home safety education to maximize level of function and allow safe discharge. Discharge Recommendations Plan/Recommendations: Continue POC Treatment Plan/Plan of Care Patient would benefit from OT for education, treatment and training to promote independence in ADL's, mobility, safety and/or upper extremity function for ADL' s. Plan of Care: ADL Retraining, Functional Mobility, Group Exercise/Act as Ind, UE Funct Exercise/Act Treatment Duration: Mar 31, 2016 Visits Per Week: 10-11 Minutes/Day (M-F): 60-90 Minutes/Day (Sat/[place]ola): PRN Agreement: Yes Rehab Potential: Fair Time/GCodes Start Time: 08:00 Stop Time: 09:00 Total Time Billed (hr/min): 60 Billed Treatment Time 1 visit, ADLx2(30minutes), EXx2(30minutes) OLIVIA NELSON OT Mar 15, 2016 12:01
--- NOTE | 2016-03-15 13:13 | Occupational Ther Daily Note ---
OT Current Status-Daily Note Subjective Pt sitting in w/c, agrees to treatment. Pt reports fatigue this am. Mental Status/Objective Functional [place] Measure 0=Not Assessed/NA 4=Minimal Assistance 1=Total Assistance 5=Supervision or Setup 2=Maximal Assistance 6=Modified [place] 3=Moderate Assistance 7=Complete [place] ADL-Treatment Functional [place] Measure 0=Not Assessed/NA 4=Minimal Assistance 1=Total Assistance 5=Supervision or Setup 2=Maximal Assistance 6=Modified [place] 3=Moderate Assistance 7=Complete IndependenceIRFPAI Quality Coding Scale 6 Independent with activity with or without an assistive device 5 Patient requires set up or clean up by helper. Patient completes activity by themselves 4 Supervision or touching assist (CGA). [place] provide cues , steadying assist 3 The helper provides less than half the effort to complete the activity 2 The helper provides more than half the effort to complete the activity 1 Dependent. The helper does all the effort to complete an activity 7 Patient refused to complete or attempt activity 9 The patient did not perform the activity before the current illness or injury 88 Not attempted due to Medical conditions or safety concerns Other Treatment Pt performed UE exercises to promote increased strength needed for ADLs and transfers. Pt performed shoulder flexion, forward press, overhead press, and biceps curls x20 reps using dowel sandra. Rest breaks between exercises. Pt requests to elevate leg after session. Pt sit to stand with moderate assistance. Transfer to lift chair with moderate assistance using FWW. Pt positioned in chair with needs met after session. OT Short Term Goals Short Term Goals Time Frame: Mar 17, 2016 Bathing(FIM): 4 Lower Body Dressing(FIM): 3 Toileting(FIM): 3 Toilet/Commode Transfer(FIM): 4 Shower Transfer(FIM): 3 Additional Short Term Goals: 1-Demonstrate ADL Tasks, 2-Verbalize Understanding , 3-ImproveStrength/Mahad 1=Demonstrate adherence to instructed precautions during ADL tasks. 2=Patient will verbalize/demonstrate understanding of assistive devices/ modifications for ADL. 3=Patient will improve strength/tolerance for activity to enable patient to perform ADL's. OT Circle Saw Operator Goals Circle Saw Operator Goals Time Frame: Mar 31, 2016 Eating (FIM): 6 Eating (QC): 6 Oral Hygiene (QC): 6 Grooming(FIM): 6 Bathing(FIM): 5 Shower/Bathe Self (QC): 4 Upper Body Dressing(FIM): 6 Upper Body Dressing (QC): 6 Lower Body Dressing(FIM): 5 Lower Body Dressing (QC): 4 On/Off Footwear (QC): 5 Toileting(FIM): 5 Toileting Hygiene (QC): 4 Toilet/Commode Transfer(FIM): 5 Toilet/Commode Transfer (QC): 4 Shower Transfer(FIM): 4 Additional Goals: 1-Demonstrate ADL Tasks, 2-Verbalize Understanding, 3- ImproveStrength/Mahad 1=Demonstrate adherence to instructed precautions during ADL tasks. 2=Patient will verbalize/demonstrate understanding of assistive devices/ modifications for ADL. 3=Patient will improve strength/tolerance for activity to enable patient to perform ADL's. OT Education/Plan Problem List/Assessment Pt demonstrates decreased mobility, strength, activity tolerance, and ADL performance. Pt to benefit from skilled OT intervention for ADL training, transfers, strengthening, adaptive equipment training as needed, and home safety education to maximize level of function and allow safe discharge. Discharge Recommendations Plan/Recommendations: Continue POC Treatment Plan/Plan of Care Patient would benefit from OT for education, treatment and training to promote independence in ADL's, mobility, safety and/or upper extremity function for ADL' s. Plan of Care: ADL Retraining, Functional Mobility, Group Exercise/Act as Ind, UE Funct Exercise/Act Treatment Duration: Mar 31, 2016 Visits Per Week: 10-11 Minutes/Day (M-F): 60-90 Minutes/Day (Sat/[place]): PRN Agreement: Yes Rehab Potential: Fair Time/GCodes Start Time: 11:00 Stop Time: 11:30 Total Time Billed (hr/min): 30 Billed Treatment Time 1 visit, EX(20minutes), FA(10minutes) OLIVIA NELSON OT Mar 15, 2016 13:13
--- NOTE | 2016-03-15 14:03 | Physical Therapy Daily Note ---
PT Daily Note-Current Subjective Pt. c/o she is fatigued. Needs to toilet , wants back in bed with clothes off after Rx. Pain Numeric Pain Scale: 0-No Pain Transfers Functional [place] Measure 0=Not Assessed/NA 4=Minimal Assistance 1=Total Assistance 5=Supervision or Setup 2=Maximal Assistance 6=Modified [place] 3=Moderate Assistance 7=Complete IndependenceIRFPAI Quality Coding Scale 6 Independent with activity with or without an assistive device 5 Patient requires set up or clean up by helper. Patient completes activity by themselves 4 Supervision or touching assist (CGA). [place] provide cues , steadying assist 3 The helper provides less than half the effort to complete the activity 2 The helper provides more than half the effort to complete the activity 1 Dependent. The helper does all the effort to complete an activity 7 Patient refused to complete or attempt activity 9 The patient did not perform the activity before the current illness or injury 88 Not attempted due to Medical conditions or safety concerns TRFs in out bed and toilet x2 with [place]PT[place] [facility] [place] Mod to Max assist and min assist with slide board Wheelchair Training Type of Wheelchair: Manual 20ft x2 about rm very slow Exercises Supine Ex: Bridging, Ankle pumps, Quad Set, Rolling, Glut sets, Heel Slides, Short Arc Quads, Scooting, Straight leg raise, Hip abd/add Supine Reps: 15 (bilat) Assessment Current Status: Good Progress fatigues quickly PT Short Term Goals Short Term Goals Time Frame: Mar 17, 2016 Gait (FIM): 1 Gait Distance Comment: 10' Gait Level of Assist: 4 Gait Assistive Device: FWW Wheelchair Distance: 150' PT Correction Goals Cinema Operator Goals PT Correction Goals Time Frame: Mar 31, 2016 Transfers (B,C,W/C) (FIM): 5 Sit to Lying (QC): 4 Lying-Sitting on Side/Bed(QC): 4 Sit to Stand (QC): 4 Rollin Roll Left to Right (QC): 4 Chair/Uxc-at-Dporb Xfer(QC): 4 Car Transfer (QC): 4 Gait (FIM): 1 Distance: 20' Walk 10 feet (QC): 4 Walk 10ft-Uneven Surface(QC): 4 Walk 50ft with 2 Turns (QC): 88 Walk 150 ft (QC): 88 Gait Level of Assist: 5 Gait Assistive Device: FWW Wheelchair (FIM): 6 Distance: 150' Wheelchair Level of Assist: 6 Wheel 50 feet with 2 turns (QC: 6 Stairs (FIM): 2 # of Steps: 4 1 Step (curb) (QC): 4 4 Steps (QC): 4 12 Steps (QC): 88 Stairs Level Of Assist: 4 Picking up an Object (QC): 88 PT Plan Treatment/Plan Treatment Plan: Continue Plan of Care Treatment Plan: Bed Mobility, Education, Functional Activity Mahad, Functional Strength, Group Therapy, Gait, Safety, Therapeutic Exercise, Transfers Treatment Duration: Mar 31, 2016 Visits Per Week: 10-11 Minutes/Day (M-F): 60-90 Minutes/Day (Sat/[place]anchola): 15-30 Safety Risks/Education Patient Education: Transfer Techniques, Correct Positioning, W/C Management, Safety Issues Teaching Recipient: Patient Teaching Methods: Demonstration, Discussion Response to Teaching: Verbalize Understanding, Return Demonstration, Reinforcement Needed Time/GCodes Time In: 1330 Time Out: 1400 Total Billed Treatment Time: 30 Total Billed Treatment 1,FA20m,EX10m G Codes Necessary: MARINO Roca EDITOR SOUND Mar 15, 2016 14:03
[2016-03-15 18:16] VITALS: BP 137/84
--- NOTE | 2016-03-15 18:49 | PM & R (SOAP) Progress Note ---
Subjective Subjective/Events-last exam Patient was seen in her room this AM Progressing well with therapies trAce edema down in ankle with one dose of lasix Labs noted Last serum K borderline low -will recheck Appreciate Cardiology note Patient Min assist for transfers Objective Exam Last Set of Vital Signs Vital Signs Date Time Temp Pulse Resp B/P Pulse Ox O2 Delivery O2 Flow Rate FiO2 03/15/16 06:05 96.4 92 18 102/66 95 Room Air Capillary Refill : Less Than 3 Seconds I&O Intake and Output 03/15/16 00:00 Intake Total 1920 ml Balance 1920 ml Intake Oral 1920 ml # Voids 9 # Bowel Movements 6 General: Alert, Oriented X3, Cooperative, No Acute Distress HEENT: Atraumatic Neck: Supple, No JVD, No Thyromegaly Lungs: Clear to Auscultation, Normal Air Movement Heart: Regular Rate, Normal S1, Normal S2, No Murmurs Abdomen: Normal Bowel Sounds, Soft, No Tenderness Extremities: No Clubbing, No Cyanosis Skin: No Rashes, No Breakdown, No Significant Lesion, Other (L anterior Knee - 2.0 x 2.4 x 0.1 cm; 100% scab. Sacral area - cluster of 3 midline wounds, largest - 0.7 x 1.1 x 0.2 cm; base 100% biofilm.) Neuro: Normal Speech, Strength at 5/5 X4 Ext, Other (mild weakness RLE) Psych/Mental Status: Mental Status NL Results Lab Laboratory Tests 03/12/16 20:33: Glucometer 176H 03/13/16 06:08: Glucometer 156H 03/13/16 11:30: Glucometer 173H 03/13/16 16:19: Glucometer 212H 03/13/16 20:09: Glucometer 193H 03/14/16 05:29: Glucometer 169H 03/14/16 11:43: Glucometer 172H 03/14/16 16:43: Glucometer 179H 03/14/16 20:52: Glucometer 193H 03/15/16 05:56: Glucometer 161H 03/15/16 10:59: Glucometer 145H 03/15/16 15:35: Glucometer 198H Microbiology 03/09/16 C. difficile GDH Antigen & Toxins - Final, Complete Assessment/Plan Assessment Left BKA 12-12-16 OSH for gangrenous left foot Postop C DIF bowel colitis associated with sepsis treated at OSH-now on Vanco for ongoing treatment Mild Hypokalemia Mild postop Anemia IDDM controlled HTN with hx of afib now sinus with hypotension depression on meds Tobaccoism declines Smoking cessation Trace edema rt ankle Uncertain if patient would tolerate Freddy hose-Lasix prn ordered-one dose ordered with improvement Plan Continue PT/OT as tolerated DR Barrios to see re cardiac meds with echo ordered-done appreciate his consult and f/u recheck labs-done Lasix times one done Completed course of Flagyl for Cdif now on course of Vanco Team Conference tomorrow 03/16/16 IRMA ESPINOZA MD Mar 15, 2016 18:49
[2016-03-15] MEDS ORDERED: POLYETHYLENE GLYCOL 17 GM (MIRALAX) PACK PO PRN (19:30)
[2016-03-15] MEDS ORDERED: SENNA W/DOCUSATE (SENOKOT S) TABLET PO PRN (19:30)
[2016-03-15] MEDS: ENOXAPARIN 40 MG/0.4 ML (LOVENOX) SYR SC SCH (20:14)
[2016-03-15] MEDS: ATORVASTATIN 40 MG (LIPITOR) TABLET PO SCH (20:14)
[2016-03-15] MEDS: inSUlin DETERMIR 1 UNIT/0.01 ML (LEVEMIR) CHARGE PER UNIT SQ SCH (20:23)
[2016-03-16] MEDS: ALPRAZolam 0.5 MG (XANAX) TAB PO PRN (00:11)
[2016-03-16 06:00] VITALS: BP 115/75
[2016-03-16] MEDS: inSUlin (REGULAR) HUMAN 1 UNIT/0.01 ML (CHARGE PER UNIT) SC SCH ×4 (06:00→21:11)
[2016-03-16 06:16] LABS: CALCIUM 8.2 MG/DL (8.5-10.1); CREATININE SERUM 1.42 MG/DL (0.60-1.30); POTASSIUM 3.3 MMOL/L (3.6-5.0)
[2016-03-16] MEDS: VANCOMYCIN ORAL 250 MG/5 ML 60 ML PO SCH ×6 (06:49→18:16)
--- NOTE | 2016-03-16 08:17 | Progress Note (SOAP) ---
Subjective Subjective/Events-last exam patient feeling okay today. Patient is starting to move better. Patient states she has not had any diarrhea this morning. Patient overall is improving Objective Exam Vital Signs Date Time Temp Pulse Resp B/P Pulse Ox O2 Delivery O2 Flow Rate FiO2 03/16/16 06:00 97.4 89 20 115/75 98 Room Air 03/15/16 18:16 97.9 96 16 137/84 98 I & O 03/16/16 07:00 Intake Total 1800 ml Balance 1800 ml Capillary Refill : Less Than 3 Seconds General Appearance: No Apparent Distress WD/WN HEENT: Normal ENT Inspection Neck: Normal Inspection Respiratory: Chest Non Tender Lungs Clear Normal Breath Sounds No Accessory Muscle Use Cardiovascular: Regular Rate, Rhythm No Murmur Results Lab Laboratory Tests 03/16/16 05:30 Laboratory Tests 03/15/16 10:59: Glucometer 145H 03/15/16 15:35: Glucometer 198H 03/15/16 20:18: Glucometer 214H 03/16/16 05:30: Anion Gap 10, BUN/Creatinine Ratio 13, Blood Urea Nitrogen 19H, Calcium Level 8.2L, Carbon Dioxide Level 19L, Chloride Level 106, Creatinine 1.42H, Estimat Glomerular Filtration Rate 38, Glucose Level 172H, Potassium Level 3.3L, Sodium Level 135 03/16/16 05:39: Glucometer 163H Microbiology 03/09/16 C. difficile GDH Antigen & Toxins - Final, Complete Assessment/Plan Assessment/Plan Assess & Plan/Chief Complaint left below the knee amputation. Diabetes. Peripheral vascular disease. Depression history. Hypertension history. . 03/11/16 left below knee amputation. Diabetes. Peripheral vascular disease. History of hypertension. C. difficile. Hypotensive. Health lisinopril. . Left knee below amputation. Diabetes. Peripheral vascular disease. History of atrial fibrillation. Patient in sinus rhythm. Hypotension. C. difficile. Diarrhea improving. . 03/15/16. Left below the knee amputation. Diabetes. Peripheral vascular disease. Depression history. Atrial fib. Blood pressure goodt and heart rate within normal limits. . 03/16/16. Left below the knee amputation. Peripheral vascular disease. Diabetes. C. difficile. History of atrial fibrillation. Diarrhea better. Potassium 3.3 Will replace. Patient has renal insufficiency Diagnosis/Problems: Clinical Quality Measures DVT/VTE Risk/Contraindication: Risk Factor Score Per Nursin RFS Level Per Nursing on Admit: 4+=Very High URSULA RENEE DO Mar 16, 2016 08:17
[2016-03-16] MEDS ORDERED: KCL 20 MEQ TAB (K-DUR) PO NR (08:23)
--- NOTE | 2016-03-16 08:51 | Cardiology Progress Note ---
Subjective Subjective/Events-last exam Patient is sitting up in chair, eating breakfast. No new complaints. Denies any CP or dyspnea. Objective-Cardiology Exam Last Set of Vital Signs Vital Signs 03/16/16 06:00 Temp 97.4 Pulse 89 Resp 20 B/P 115/75 Pulse Ox 98 O2 Delivery Room Air Capillary Refill : Less Than 3 Seconds I&O Intake and Output 03/16/16 00:00 Intake Total 1900 ml Balance 1900 ml Intake Oral 1900 ml # Voids 10 # Bowel Movements 4 General: Alert, Oriented X3, Cooperative, No Acute Distress HEENT: Atraumatic Neck: Supple, No JVD, No Thyromegaly Lungs: Clear to Auscultation, Normal Air Movement Heart: Regular Rate, Normal S1, Normal S2, No Murmurs Abdomen: Normal Bowel Sounds, Soft, No Tenderness Extremities: No Clubbing, No Cyanosis Skin: No Rashes, No Breakdown, No Significant Lesion, Other (L anterior Knee - 2.0 x 2.4 x 0.1 cm; 100% scab. Sacral area - cluster of 3 midline wounds, largest - 0.7 x 1.1 x 0.2 cm; base 100% biofilm.) Neuro: Normal Speech, Strength at 5/5 X4 Ext, Other (mild weakness RLE) Psych/Mental Status: Mental Status NL Results Lab Laboratory Tests 03/16/16 05:30 A/P-Cardiology Admission Diagnosis Hypotension Paroxysmal atrial fibrillation Hyperlipidemia Peripheral arterial disease Diabetes mellitus Assessment/Plan Hypotension, probably secondary to hypovolemia in addition to her aggressive antihypertensive medications. Better at this time, stay off XOCHITL inhibitor, continue on Cardizem and monitor blood pressure. Paroxysmal atrial fibrillation, reporting episode of atrial fibrillation during her hospital stay in January at [facility]. She is not on oral anticoagulation, no signs of bleeding. Probably transient episode of atrial fibrillation. She denied any previous history prior to her surgery. No syncope was reported. Currently in sinus rhythm. Continue to monitor C. difficile colitis, still having diarrhea, treated by primary care physician History of hypertension, status post hypotension, blood pressure is better. Continue to monitor Peripheral arterial disease, extensive, continue to monitor closely. 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 Mild hypokalemia, monitor electrolytes Anemia, monitor H&H Hyperlipidemia, maintained on Lipitor. Monitor lipids Diabetes mellitus, followed and managed by primary care physician Tobaccoism, educated in length on smoking cessation Depression, anxiety. Managed by primary care physician Debility, receiving physical therapy Clinical Quality Measures DVT/VTE Risk/Contraindication: Risk Factor Score Per Nursin RFS Level Per Nursing on Admit: 4+=Very High LINH WALLACE Mar 16, 2016 08:51
--- NOTE | 2016-03-16 09:11 | PM & R (SOAP) Progress Note ---
Subjective Subjective/Events-last exam Patient was seen in her room this AM Pain control adequate Meds adjusted last evening to promote formed stools.Patient min assist for transfers Objective Exam Last Set of Vital Signs Vital Signs Date Time Temp Pulse Resp B/P Pulse Ox O2 Delivery O2 Flow Rate FiO2 03/16/16 06:00 97.4 89 20 115/75 98 Room Air Capillary Refill : Less Than 3 Seconds I&O Intake and Output 03/16/16 00:00 Intake Total 1900 ml Balance 1900 ml Intake Oral 1900 ml # Voids 10 # Bowel Movements 4 General: Alert, Oriented X3, Cooperative, No Acute Distress HEENT: Atraumatic Neck: Supple, No JVD, No Thyromegaly Lungs: Clear to Auscultation, Normal Air Movement Heart: Regular Rate, Normal S1, Normal S2, No Murmurs Abdomen: Normal Bowel Sounds, Soft, No Tenderness Extremities: No Clubbing, No Cyanosis Skin: No Rashes, No Breakdown, No Significant Lesion, Other (L anterior Knee - 2.0 x 2.4 x 0.1 cm; 100% scab. Sacral area - cluster of 3 midline wounds, largest - 0.7 x 1.1 x 0.2 cm; base 100% biofilm.) Neuro: Normal Speech, Strength at 5/5 X4 Ext, Other (mild weakness RLE) Psych/Mental Status: Mental Status NL Results Lab Laboratory Tests 03/13/16 11:30: Glucometer 173H 03/13/16 16:19: Glucometer 212H 03/13/16 20:09: Glucometer 193H 03/14/16 05:29: Glucometer 169H 03/14/16 11:43: Glucometer 172H 03/14/16 16:43: Glucometer 179H 03/14/16 20:52: Glucometer 193H 03/15/16 05:56: Glucometer 161H 03/15/16 10:59: Glucometer 145H 03/15/16 15:35: Glucometer 198H 03/15/16 20:18: Glucometer 214H 03/16/16 05:30: Anion Gap 10, BUN/Creatinine Ratio 13, Blood Urea Nitrogen 19H, Calcium Level 8.2L, Carbon Dioxide Level 19L, Chloride Level 106, Creatinine 1.42H, Estimat Glomerular Filtration Rate 38, Glucose Level 172H, Potassium Level 3.3L, Sodium Level 135 03/16/16 05:39: Glucometer 163H Microbiology 03/09/16 C. difficile GDH Antigen & Toxins - Final, Complete Assessment/Plan Assessment Left BKA 02-01-16 OSH for gangrenous left foot Postop C DIF bowel colitis associated with sepsis treated at OSH-now on Vanco for ongoing treatment Mild Hypokalemia Mild postop Anemia IDDM controlled HTN with hx of afib now sinus with hypotension depression on meds Tobaccoism declines Smoking cessation Trace edema rt ankle Uncertain if patient would tolerate Freddy hose-Lasix prn ordered-one dose ordered with improvement Plan Continue PT/OT as tolerated DR Barrios to see re cardiac meds with echo ordered-done appreciate his consult and f/u recheck labs-done Lasix times one done Completed course of Flagyl for Cdif now on course of Vanco with meds adjusted to promote formed stools Team Conference to be held later today-see report for full functional update and POC and IRMA MOORE MD Mar 16, 2016 09:11
[2016-03-16 09:40] VITALS: BP 126/71
[2016-03-16] MEDS: GABAPENTIN 600 MG (NEURONTIN) TAB PO SCH ×3 (09:47→21:06)
[2016-03-16] MEDS: DILTIAZEM 30 MG (CARDIZEM) TAB PO SCH ×3 (09:47→21:07)
[2016-03-16] MEDS: DULoxetine 30 MG (CYMBALTA) CAP PO SCH (09:48)
--- NOTE | 2016-03-16 10:11 | Physical Therapy Daily Note ---
PT Daily Note-Current Subjective Pt. states she worked with OT earlier and now is surprised that she is so weak. Pain Numeric Pain Scale: 0-No Pain Mental Status Patient Orientation: Normal For Age Transfers Functional [place] Measure 0=Not Assessed/NA 4=Minimal Assistance 1=Total Assistance 5=Supervision or Setup 2=Maximal Assistance 6=Modified [place] 3=Moderate Assistance 7=Complete IndependenceIRFPAI Quality Coding Scale 6 Independent with activity with or without an assistive device 5 Patient requires set up or clean up by helper. Patient completes activity by themselves 4 Supervision or touching assist (CGA). [place] provide cues , steadying assist 3 The helper provides less than half the effort to complete the activity 2 The helper provides more than half the effort to complete the activity 1 Dependent. The helper does all the effort to complete an activity 7 Patient refused to complete or attempt activity 9 The patient did not perform the activity before the current illness or injury 88 Not attempted due to Medical conditions or safety concerns Transfers (B, C, W/C) (FIM): 2 Scootin Rollin Supine to/from Sit: 5 Sit to/from Stand: 2 Bed to/from Chair: 3 (slide board) Wheelchair Training Does the Pt Use a Wheelchair?: Yes Wheelchair (FIM): 2 Wheelchair Distance: 5=378-95 ft (50,20) Wheelchair Level of Assist: 3 Type of Wheelchair: Manual needs assist to manage sharp turns as well as mange the leg rests Exercises Supine Ex: Bridging, Ankle pumps (HC stretch), Quad Set, Rolling, Glut sets, Heel Slides, Short Arc Quads, Scooting, Straight leg raise, Hip abd/add Supine Reps: 12 Seated Therapy Exercises: Ankle pumps, Long arc quads, Chair press-ups, Hip flexion Seated Reps: 15 Treatments pt. with diarrhea and needed on BSC . This required max assist of 2-3 as pt had on soiled panties and pants and needed cleaning. pt. struggled and was discouraged. sld brd to bed after for therex Assessment Current Status: Fair Progress fatigued PT Short Term Goals Short Term Goals Time Frame: Mar 17, 2016 Gait (FIM): 1 Gait Distance Comment: 10' Gait Level of Assist: 4 Gait Assistive Device: FWW Wheelchair Distance: 150' PT Senior Living Goals Electric Shovel Operator Goals PT Electric Shovel Operator Goals Time Frame: Mar 31, 2016 Transfers (B,C,W/C) (FIM): 5 Sit to Lying (QC): 4 Lying-Sitting on Side/Bed(QC): 4 Sit to Stand (QC): 4 Rollin Roll Left to Right (QC): 4 Chair/Ddz-ux-Pigux Xfer(QC): 4 Car Transfer (QC): 4 Gait (FIM): 1 Distance: 20' Walk 10 feet (QC): 4 Walk 10ft-Uneven Surface(QC): 4 Walk 50ft with 2 Turns (QC): 88 Walk 150 ft (QC): 88 Gait Level of Assist: 5 Gait Assistive Device: FWW Wheelchair (FIM): 6 Distance: 150' Wheelchair Level of Assist: 6 Wheel 50 feet with 2 turns (QC: 6 Stairs (FIM): 2 # of Steps: 4 1 Step (curb) (QC): 4 4 Steps (QC): 4 12 Steps (QC): 88 Stairs Level Of Assist: 4 Picking up an Object (QC): 88 PT Plan Treatment/Plan Treatment Plan: Continue Plan of Care Treatment Plan: Bed Mobility, Education, Functional Activity Mahad, Functional Strength, Group Therapy, Gait, Safety, Therapeutic Exercise, Transfers Treatment Duration: Mar 31, 2016 Visits Per Week: 10-11 Minutes/Day (M-F): 60-90 Minutes/Day (Sat/[place]): 15-30 Safety Risks/Education Patient Education: Transfer Techniques, Correct Positioning, Disease Process, Safety Issues Teaching Recipient: Patient Teaching Methods: Demonstration, Discussion Response to Teaching: Verbalize Understanding, Return Demonstration, Reinforcement Needed Time/GCodes Time In: 915 Time Out: 1015 Total Billed Treatment Time: 60 Total Billed Treatment 1,FA40,EX20 G Codes Necessary: MARINO Roca VP PUBLISHER DEVELOPMENT Mar 16, 2016 10:11
--- NOTE | 2016-03-16 11:41 | Occupational Ther Daily Note ---
OT Current Status-Daily Note Subjective Pt sitting EOB, agrees to treatment. Mental Status/Objective Functional [place] Measure 0=Not Assessed/NA 4=Minimal Assistance 1=Total Assistance 5=Supervision or Setup 2=Maximal Assistance 6=Modified [place] 3=Moderate Assistance 7=Complete [place] ADL-Treatment Sit to stand and transfer to [facility] with moderate assistance using FWW. Pt scoots right foot to transfer. Pt able to complete toileting hygiene, but requires assist for clothing management. Transfer to w/c with mod assist using FWW. Sponge bath completed seated in chair. Upper body bathing completed with set up. Pt able to wash bilateral upper legs, right lower leg/foot, and srinivasa area. Assist for other areas. Don pullover shirt with set up. Pt donned underwear and pants with mod assist to stand for pant hike. Pt able to start pants over feet and perform pant hike on right, requires assist for pant hike on left. Don right sock and shoe with set up. Grooming tasks completed seated at sink with modified independence. Pt brushed teeth, combed hair, and shaved with modified independence. Pt sitting in w/c with needs met after session. Functional [place] Measure 0=Not Assessed/NA 4=Minimal Assistance 1=Total Assistance 5=Supervision or Setup 2=Maximal Assistance 6=Modified [place] 3=Moderate Assistance 7=Complete IndependenceIRFPAI Quality Coding Scale 6 Independent with activity with or without an assistive device 5 Patient requires set up or clean up by helper. Patient completes activity by themselves 4 Supervision or touching assist (CGA). [place] provide cues , steadying assist 3 The helper provides less than half the effort to complete the activity 2 The helper provides more than half the effort to complete the activity 1 Dependent. The helper does all the effort to complete an activity 7 Patient refused to complete or attempt activity 9 The patient did not perform the activity before the current illness or injury 88 Not attempted due to Medical conditions or safety concerns Eating (FIM): 7 (Pt able to manage containers and feed self independently) Eating (QC): 6 Grooming (FIM): 6 Oral Hygiene (QC): 6 Toileting Hygiene (QC): 2 Upper Body (FIM): 5 Upper Body Dressing (QC): 5 Lower Body Dressing (FIM): 3 Lower Body Dressing (QC): 2 On/Off Footwear (QC): 5 Toileting (FIM): 2 Toilet/Commode Transfer (FIM): 3 Toilet Transfer (QC): 3 OT Short Term Goals Short Term Goals Time Frame: Mar 17, 2016 Bathing(FIM): 4 Lower Body Dressing(FIM): 3 Toileting(FIM): 3 Toilet/Commode Transfer(FIM): 4 Shower Transfer(FIM): 3 Additional Short Term Goals: 1-Demonstrate ADL Tasks, 2-Verbalize Understanding , 3-ImproveStrength/Mahad 1=Demonstrate adherence to instructed precautions during ADL tasks. 2=Patient will verbalize/demonstrate understanding of assistive devices/ modifications for ADL. 3=Patient will improve strength/tolerance for activity to enable patient to perform ADL's. OT Nursing Home Goals Nursing Home Goals Time Frame: Mar 31, 2016 Eating (FIM): 6 Eating (QC): 6 Oral Hygiene (QC): 6 Grooming(FIM): 6 Bathing(FIM): 5 Shower/Bathe Self (QC): 4 Upper Body Dressing(FIM): 6 Upper Body Dressing (QC): 6 Lower Body Dressing(FIM): 5 Lower Body Dressing (QC): 4 On/Off Footwear (QC): 5 Toileting(FIM): 5 Toileting Hygiene (QC): 4 Toilet/Commode Transfer(FIM): 5 Toilet/Commode Transfer (QC): 4 Shower Transfer(FIM): 4 Additional Goals: 1-Demonstrate ADL Tasks, 2-Verbalize Understanding, 3- ImproveStrength/Mahad 1=Demonstrate adherence to instructed precautions during ADL tasks. 2=Patient will verbalize/demonstrate understanding of assistive devices/ modifications for ADL. 3=Patient will improve strength/tolerance for activity to enable patient to perform ADL's. OT Education/Plan Problem List/Assessment Pt demonstrates decreased mobility, strength, activity tolerance, and ADL performance. Pt to benefit from skilled OT intervention for ADL training, transfers, strengthening, adaptive equipment training as needed, and home safety education to maximize level of function and allow safe discharge. Discharge Recommendations Plan/Recommendations: Continue POC Treatment Plan/Plan of Care Patient would benefit from OT for education, treatment and training to promote independence in ADL's, mobility, safety and/or upper extremity function for ADL' s. Plan of Care: ADL Retraining, Functional Mobility, Group Exercise/Act as Ind, UE Funct Exercise/Act Treatment Duration: Mar 31, 2016 Visits Per Week: 10-11 Minutes/Day (M-F): 60-90 Minutes/Day (Sat/[place]): PRN Agreement: Yes Rehab Potential: Fair Time/GCodes Start Time: 08:00 Stop Time: 09:00 Total Time Billed (hr/min): 60 Billed Treatment Time 1 visit, ADLx4(60minutes) OLIVIA NELSON OT Mar 16, 2016 11:41
--- NOTE | 2016-03-16 12:03 | Occupational Ther Daily Note ---
OT Current Status-Daily Note Subjective Pt agrees to treatment, no c/o pain. Mental Status/Objective Functional [employer] Measure 0=Not Assessed/NA 4=Minimal Assistance 1=Total Assistance 5=Supervision or Setup 2=Maximal Assistance 6=Modified [employer] 3=Moderate Assistance 7=Complete [employer] ADL-Treatment Pt sitting on BSC when therapist arrives. Pt able to complete toileting hygiene , but requires assist for clothing management. Sit to stand with moderate assistance. Transfer to EOB with mod assist using FWW. Functional [employer] Measure 0=Not Assessed/NA 4=Minimal Assistance 1=Total Assistance 5=Supervision or Setup 2=Maximal Assistance 6=Modified [employer] 3=Moderate Assistance 7=Complete IndependenceIRFPAI Quality Coding Scale 6 Independent with activity with or without an assistive device 5 Patient requires set up or clean up by helper. Patient completes activity by themselves 4 Supervision or touching assist (CGA). [place] provide cues , steadying assist 3 The helper provides less than half the effort to complete the activity 2 The helper provides more than half the effort to complete the activity 1 Dependent. The helper does all the effort to complete an activity 7 Patient refused to complete or attempt activity 9 The patient did not perform the activity before the current illness or injury 88 Not attempted due to Medical conditions or safety concerns Toileting (FIM): 2 Toilet/Commode Transfer (FIM): 3 Other Treatment Pt completed bilateral UE exercises to promote increased strength needed for transfers and ADLs. Pt completed shoulder abduction, flexion, horizontal abduction, biceps curls, and triceps extension exercises x20 reps with green theraband. Pt takes brief rest break between exercises. Pt sitting EOB with needs met after session. OT Short Term Goals Short Term Goals Time Frame: Mar 17, 2016 Bathing(FIM): 4 Lower Body Dressing(FIM): 3 Toileting(FIM): 3 Toilet/Commode Transfer(FIM): 4 Shower Transfer(FIM): 3 Additional Short Term Goals: 1-Demonstrate ADL Tasks, 2-Verbalize Understanding , 3-ImproveStrength/Mahad 1=Demonstrate adherence to instructed precautions during ADL tasks. 2=Patient will verbalize/demonstrate understanding of assistive devices/ modifications for ADL. 3=Patient will improve strength/tolerance for activity to enable patient to perform ADL's. OT Half-Way Goals Half-Way Goals Time Frame: Mar 31, 2016 Eating (FIM): 6 Eating (QC): 6 Oral Hygiene (QC): 6 Grooming(FIM): 6 Bathing(FIM): 5 Shower/Bathe Self (QC): 4 Upper Body Dressing(FIM): 6 Upper Body Dressing (QC): 6 Lower Body Dressing(FIM): 5 Lower Body Dressing (QC): 4 On/Off Footwear (QC): 5 Toileting(FIM): 5 Toileting Hygiene (QC): 4 Toilet/Commode Transfer(FIM): 5 Toilet/Commode Transfer (QC): 4 Shower Transfer(FIM): 4 Additional Goals: 1-Demonstrate ADL Tasks, 2-Verbalize Understanding, 3- ImproveStrength/Mahad 1=Demonstrate adherence to instructed precautions during ADL tasks. 2=Patient will verbalize/demonstrate understanding of assistive devices/ modifications for ADL. 3=Patient will improve strength/tolerance for activity to enable patient to perform ADL's. OT Education/Plan Problem List/Assessment Pt demonstrates decreased mobility, strength, activity tolerance, and ADL performance. Pt to benefit from skilled OT intervention for ADL training, transfers, strengthening, adaptive equipment training as needed, and home safety education to maximize level of function and allow safe discharge. Discharge Recommendations Plan/Recommendations: Continue POC Treatment Plan/Plan of Care Patient would benefit from OT for education, treatment and training to promote independence in ADL's, mobility, safety and/or upper extremity function for ADL' s. Plan of Care: ADL Retraining, Functional Mobility, Group Exercise/Act as Ind, UE Funct Exercise/Act Treatment Duration: Mar 31, 2016 Visits Per Week: 10-11 Minutes/Day (M-F): 60-90 Minutes/Day (Sat/[place]): PRN Agreement: Yes Rehab Potential: Fair Time/GCodes Start Time: 11:00 Stop Time: 11:30 Total Time Billed (hr/min): 30 Billed Treatment Time 1 visit, ADL(10minutes), EX(20minutes) OLIVIA NELSON OT Mar 16, 2016 12:03
--- NOTE | 2016-03-16 14:58 | Physical Therapy Daily Note ---
PT Daily Note-Current Subjective Pt. in bed asleep. Agreeable to Rx when awakened. Pain Numeric Pain Scale: 0-No Pain Mental Status Patient Orientation: Normal For Age Transfers Functional [place] Measure 0=Not Assessed/NA 4=Minimal Assistance 1=Total Assistance 5=Supervision or Setup 2=Maximal Assistance 6=Modified [place] 3=Moderate Assistance 7=Complete IndependenceIRFPAI Quality Coding Scale 6 Independent with activity with or without an assistive device 5 Patient requires set up or clean up by helper. Patient completes activity by themselves 4 Supervision or touching assist (CGA). [place] provide cues , steadying assist 3 The helper provides less than half the effort to complete the activity 2 The helper provides more than half the effort to complete the activity 1 Dependent. The helper does all the effort to complete an activity 7 Patient refused to complete or attempt activity 9 The patient did not perform the activity before the current illness or injury 88 Not attempted due to Medical conditions or safety concerns Transfers (B, C, W/C) (FIM): 4 Scootin Rollin Supine to/from Sit: 5 Sit to/from Stand: 4 Bed to/from Chair: 4 with all surfaces raised as high as possible ie w/c raised with cushion, BSC raised to top height and bed elevated pt. is able to sit to stand with Min to CGA. Pt. did so and TRFd sup to sit SBA then TRFd to toilet, and back to bed min assist Gait Training pt. side scoots bed to chair etc Wheelchair Training Does the Pt Use a Wheelchair?: Yes Wheelchair (FIM): 2 Wheelchair Distance: 4=615-54 ft Wheelchair Level of Assist: 4 Exercises Supine Ex: Bridging, Ankle pumps, Quad Set, Rolling, Glut sets, Heel Slides, Short Arc Quads, Scooting, Straight leg raise, Hip abd/add Supine Reps: 20 (bilaterally with sidelying hip abd and hip extension) Assessment Current Status: Good Progress increased TRF heights help a great deal PT Short Term Goals Short Term Goals Time Frame: Mar 17, 2016 Gait (FIM): 1 Gait Distance Comment: 10' Gait Level of Assist: 4 Gait Assistive Device: FWW Wheelchair Distance: 150' PT Wood Stainer Goals Detention Goals PT Detention Goals Time Frame: Mar 31, 2016 Transfers (B,C,W/C) (FIM): 5 Sit to Lying (QC): 4 Lying-Sitting on Side/Bed(QC): 4 Sit to Stand (QC): 4 Rollin Roll Left to Right (QC): 4 Chair/Aos-so-Cximm Xfer(QC): 4 Car Transfer (QC): 4 Gait (FIM): 1 Distance: 20' Walk 10 feet (QC): 4 Walk 10ft-Uneven Surface(QC): 4 Walk 50ft with 2 Turns (QC): 88 Walk 150 ft (QC): 88 Gait Level of Assist: 5 Gait Assistive Device: FWW Wheelchair (FIM): 6 Distance: 150' Wheelchair Level of Assist: 6 Wheel 50 feet with 2 turns (QC: 6 Stairs (FIM): 2 # of Steps: 4 1 Step (curb) (QC): 4 4 Steps (QC): 4 12 Steps (QC): 88 Stairs Level Of Assist: 4 Picking up an Object (QC): 88 PT Plan Treatment/Plan Treatment Plan: Continue Plan of Care Treatment Plan: Bed Mobility, Education, Functional Activity Mahad, Functional Strength, Group Therapy, Gait, Safety, Therapeutic Exercise, Transfers Treatment Duration: Mar 31, 2016 Visits Per Week: 10-11 Minutes/Day (M-F): 60-90 Minutes/Day (Sat/[place]): 15-30 Safety Risks/Education Patient Education: Transfer Techniques, Correct Positioning, W/C Management, Disease Process, Safety Issues Teaching Recipient: Patient Teaching Methods: Demonstration, Discussion Response to Teaching: Verbalize Understanding, Return Demonstration, Reinforcement Needed Time/GCodes Time In: 1415 Time Out: 1445 Total Billed Treatment Time: 30 Total Billed Treatment 1,FA15,EX15 G Codes Necessary: MARINO Roca INSTRUMENTATION ENGINEER Mar 16, 2016 14:58
[2016-03-16] MEDS: oxyCODONE/APAP 5/325MG (PERCOCET 5) TABLET PO PRN ×2 (15:05→21:11)
[2016-03-16 18:37] VITALS: BP 119/70
[2016-03-16] MEDS: ATORVASTATIN 40 MG (LIPITOR) TABLET PO SCH (21:06)
[2016-03-16] MEDS: ENOXAPARIN 40 MG/0.4 ML (LOVENOX) SYR SC SCH (21:06)
[2016-03-16] MEDS: inSUlin DETERMIR 1 UNIT/0.01 ML (LEVEMIR) CHARGE PER UNIT SQ SCH (21:07)
[2016-03-17] MEDS: VANCOMYCIN ORAL 250 MG/5 ML 60 ML PO SCH ×8 (00:53→18:48)
[2016-03-17] MEDS: inSUlin (REGULAR) HUMAN 1 UNIT/0.01 ML (CHARGE PER UNIT) SC SCH ×4 (05:34→20:34)
[2016-03-17 05:57] LABS: CALCIUM 8.4 MG/DL (8.5-10.1); CREATININE SERUM 1.36 MG/DL (0.60-1.30); POTASSIUM 3.9 MMOL/L (3.6-5.0)
[2016-03-17 06:00] VITALS: BP 134/87
[2016-03-17] MEDS: DULoxetine 30 MG (CYMBALTA) CAP PO SCH (08:09)
[2016-03-17] MEDS: DILTIAZEM 30 MG (CARDIZEM) TAB PO SCH ×3 (08:10→20:34)
[2016-03-17] MEDS: GABAPENTIN 600 MG (NEURONTIN) TAB PO SCH ×3 (08:10→20:34)
--- NOTE | 2016-03-17 08:12 | Cardiology Progress Note ---
Subjective Subjective/Events-last exam Patient reports she is doing well. Having low grade fever. Denies any CP or dyspnea. Denies cough. Review of Systems General: No Night Sweats, Fatigue MalaiseNo Appetite HEENT: No Visual Changes, No Dysphasia, No Sore Throat Pulmonary: No Dyspnea, No Cough, No Pleuritic Chest Pain Cardiovascular: No: Chest Pain, Edema, Palpitations, Paroxysmal Noc. Dyspnea Gastrointestinal: No: Nausea, Vomiting Genitourinary: No Dysuria, No Frequency Musculoskeletal: No: back pain, neck pain Neurological: No: Change in speech, Confusion, Numbness, Weakness Objective-Cardiology Exam Last Set of Vital Signs Vital Signs 03/17/16 06:00 Temp 99.3 Pulse 97 Resp 20 B/P 134/87 Pulse Ox 97 O2 Delivery Room Air Capillary Refill : Less Than 3 Seconds I&O Intake and Output 03/17/16 00:00 Intake Total 1530 ml Balance 1530 ml Intake Oral 1530 ml # Voids 8 # Bowel Movements 2 General: Alert, Oriented X3, Cooperative, No Acute Distress HEENT: Atraumatic Neck: Supple, No JVD, No Thyromegaly Lungs: Clear to Auscultation, Normal Air Movement Heart: Regular Rate, Normal S1, Normal S2, No Murmurs Abdomen: Normal Bowel Sounds, Soft, No Tenderness Extremities: No Clubbing, No Cyanosis Skin: No Rashes, No Breakdown, No Significant Lesion, Other (L anterior Knee - 2.0 x 2.4 x 0.1 cm; 100% scab. Sacral area - cluster of 3 midline wounds, largest - 0.7 x 1.1 x 0.2 cm; base 100% biofilm.) Neuro: Normal Speech, Strength at 5/5 X4 Ext, Other (mild weakness RLE) Psych/Mental Status: Mental Status NL Results Lab Laboratory Tests 03/17/16 05:17 A/P-Cardiology Admission Diagnosis Hypotension Paroxysmal atrial fibrillation Hyperlipidemia Peripheral arterial disease Diabetes mellitus Assessment/Plan Hypotension, probably secondary to hypovolemia in addition to her aggressive antihypertensive medications. Better at this time, stay off XOCHITL inhibitor, continue on Cardizem and monitor blood pressure. Paroxysmal atrial fibrillation, reporting episode of atrial fibrillation during her hospital stay in January at [facility]. She is not on oral anticoagulation, no signs of bleeding. Probably transient episode of atrial fibrillation. She denied any previous history prior to her surgery. No syncope was reported. Currently in sinus rhythm. Continue to monitor C. difficile colitis, still having diarrhea, treated by primary care physician History of hypertension, status post hypotension, blood pressure is better. Continue to monitor Peripheral arterial disease, extensive, continue to monitor closely. 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 Mild hypokalemia, monitor electrolytes Anemia, monitor H&H Hyperlipidemia, maintained on Lipitor. Monitor lipids Diabetes mellitus, followed and managed by primary care physician Tobaccoism, educated in length on smoking cessation Depression, anxiety. Managed by primary care physician Debility, receiving physical therapy Clinical Quality Measures DVT/VTE Risk/Contraindication: Risk Factor Score Per Nursin RFS Level Per Nursing on Admit: 4+=Very High LINH WALLACE Mar 17, 2016 08:11
--- NOTE | 2016-03-17 08:13 | PM & R (SOAP) Progress Note ---
Subjective Subjective/Events-last exam Patient was seen in her room this AM Patient Min assist for transfers Objective Exam Last Set of Vital Signs Vital Signs Date Time Temp Pulse Resp B/P Pulse Ox O2 Delivery O2 Flow Rate FiO2 03/17/16 06:00 99.3 97 20 134/87 97 Room Air Capillary Refill : Less Than 3 Seconds I&O Intake and Output 03/17/16 00:00 Intake Total 1530 ml Balance 1530 ml Intake Oral 1530 ml # Voids 8 # Bowel Movements 2 General: Alert, Oriented X3, Cooperative, No Acute Distress HEENT: Atraumatic Neck: Supple, No JVD, No Thyromegaly Lungs: Clear to Auscultation, Normal Air Movement Heart: Regular Rate, Normal S1, Normal S2, No Murmurs Abdomen: Normal Bowel Sounds, Soft, No Tenderness Extremities: No Clubbing, No Cyanosis Skin: No Rashes, No Breakdown, No Significant Lesion, Other (L anterior Knee - 2.0 x 2.4 x 0.1 cm; 100% scab. Sacral area - cluster of 3 midline wounds, largest - 0.7 x 1.1 x 0.2 cm; base 100% biofilm.) Neuro: Normal Speech, Strength at 5/5 X4 Ext, Other (mild weakness RLE) Psych/Mental Status: Mental Status NL Results Lab Laboratory Tests 03/14/16 11:43: Glucometer 172H 03/14/16 16:43: Glucometer 179H 03/14/16 20:52: Glucometer 193H 03/15/16 05:56: Glucometer 161H 03/15/16 10:59: Glucometer 145H 03/15/16 15:35: Glucometer 198H 03/15/16 20:18: Glucometer 214H 03/16/16 05:30: Anion Gap 10, BUN/Creatinine Ratio 13, Blood Urea Nitrogen 19H, Calcium Level 8.2L, Carbon Dioxide Level 19L, Chloride Level 106, Creatinine 1.42H, Estimat Glomerular Filtration Rate 38, Glucose Level 172H, Potassium Level 3.3L, Sodium Level 135 03/16/16 05:39: Glucometer 163H 03/16/16 10:56: Glucometer 195H 03/16/16 15:47: Glucometer 193H 03/16/16 20:51: Glucometer 210H 03/17/16 05:17: Anion Gap 9, BUN/Creatinine Ratio 12, Blood Urea Nitrogen 16, Calcium Level 8.4L , Carbon Dioxide Level 19L, Chloride Level 106, Creatinine 1.36H, Estimat Glomerular Filtration Rate 40, Glucometer 179H, Glucose Level 158H, Potassium Level 3.9, Sodium Level 134L Microbiology 03/09/16 C. difficile GDH Antigen & Toxins - Final, Complete Assessment/Plan Assessment Left BKA 02-01-16 OSH for gangrenous left foot Postop C DIF bowel colitis associated with sepsis treated at OSH-now on Vanco for ongoing treatment Mild Hypokalemia Mild postop Anemia IDDM controlled HTN with hx of afib now sinus with hypotension depression on meds Tobaccoism declines Smoking cessation Trace edema rt ankle Uncertain if patient would tolerate Freddy hose-Lasix prn ordered-one dose ordered with improvement Plan Continue PT/OT DR Barrios to see re cardiac meds with echo ordered-done appreciate his consult and f/u recheck labs-done Lasix times one done-edema improved Completed course of Flagyl for Cdif now on course of Vanco with meds adjusted to promote formed stools Team Conference held yesterday-see report for full functional update and POC and IRMA MOORE MD Mar 17, 2016 08:12
--- NOTE | 2016-03-17 09:26 | Physical Therapy Daily Note ---
PT Daily Note-Current Subjective Pt. states she feels ok now but had a fever in the night. Agrees to Rx. Pain Numeric Pain Scale: 0-No Pain Mental Status Patient Orientation: Normal For Age Transfers Functional [place] Measure 0=Not Assessed/NA 4=Minimal Assistance 1=Total Assistance 5=Supervision or Setup 2=Maximal Assistance 6=Modified [place] 3=Moderate Assistance 7=Complete IndependenceIRFPAI Quality Coding Scale 6 Independent with activity with or without an assistive device 5 Patient requires set up or clean up by helper. Patient completes activity by themselves 4 Supervision or touching assist (CGA). [place] provide cues , steadying assist 3 The helper provides less than half the effort to complete the activity 2 The helper provides more than half the effort to complete the activity 1 Dependent. The helper does all the effort to complete an activity 7 Patient refused to complete or attempt activity 9 The patient did not perform the activity before the current illness or injury 88 Not attempted due to Medical conditions or safety concerns Transfers (B, C, W/C) (FIM): 4 Scootin Rollin Supine to/from Sit: 5 Sit to/from Stand: 4 Bed to/from Chair: 4 all levels raised equally high and more accommodating top pt. pt. TRFs sit to stand CGA and scoot pivots to WC Wheelchair Training Does the Pt Use a Wheelchair?: Yes Wheelchair (FIM): 2 Wheelchair Distance: 1=890-61 ft (50ftx1) Wheelchair Level of Assist: 4 Type of Wheelchair: Manual very slow, requires skilled verbal instruction for efficient propulsion of w/c in small space of room, turning corners etc Exercises Supine Ex: Bridging, Ankle pumps, Quad Set, Rolling, Glut sets, Lower trunk rotation, Heel Slides, Knee to chest, Short Arc Quads, Scooting, Straight leg raise, Hip abd/add Supine Reps: 15 (supine ansd sidelying) Treatments multiple sit stands and scoot pivot TRFs toward existing side and residual limb side (most challenging) Assessment Current Status: Good Progress continues weak RLE PT Short Term Goals Short Term Goals Time Frame: Mar 17, 2016 Gait (FIM): 1 Gait Distance Comment: 10' Gait Level of Assist: 4 Gait Assistive Device: FWW Wheelchair Distance: 150' PT [employer] Supervisor Goals [employer] Supervisor Goals PT [employer] Supervisor Goals Time Frame: Mar 31, 2016 Transfers (B,C,W/C) (FIM): 5 Sit to Lying (QC): 4 Lying-Sitting on Side/Bed(QC): 4 Sit to Stand (QC): 4 Rollin Roll Left to Right (QC): 4 Chair/Koy-qb-Bbggn Xfer(QC): 4 Car Transfer (QC): 4 Gait (FIM): 1 Distance: 20' Walk 10 feet (QC): 4 Walk 10ft-Uneven Surface(QC): 4 Walk 50ft with 2 Turns (QC): 88 Walk 150 ft (QC): 88 Gait Level of Assist: 5 Gait Assistive Device: FWW Wheelchair (FIM): 6 Distance: 150' Wheelchair Level of Assist: 6 Wheel 50 feet with 2 turns (QC: 6 Stairs (FIM): 2 # of Steps: 4 1 Step (curb) (QC): 4 4 Steps (QC): 4 12 Steps (QC): 88 Stairs Level Of Assist: 4 Picking up an Object (QC): 88 PT Plan Treatment/Plan Treatment Plan: Continue Plan of Care Treatment Plan: Bed Mobility, Education, Functional Activity Mahad, Functional Strength, Group Therapy, Gait, Safety, Therapeutic Exercise, Transfers Treatment Duration: Mar 31, 2016 Visits Per Week: 10-11 Minutes/Day (M-F): 60-90 Minutes/Day (Sat/[place]): 15-30 Safety Risks/Education Patient Education: Transfer Techniques, Issued Written HEP, Correct Positioning , W/C Management, Disease Process, Safety Issues Teaching Recipient: Patient Teaching Methods: Demonstration, Discussion Response to Teaching: Return Demonstration, Reinforcement Needed education in deep cough, deep breathing and prevention of pneumonia Discharge Recommendations Plan spoke with SW RE: pts. social situation, pt states today that her and 11 y.o dtr will not help her at home. " when I go home I need to be able to do all the laundry and cooking , I have a very small bathroom and would have to be able to walk in to it. My and daughter wont empty a [facility] bucket either. Pt. states she is behind on her rent and is not sure her landlord will allow a ramp built Time/GCodes Time In: 815 Time Out: 915 Total Billed Treatment Time: 60 Total Billed Treatment 1,EX30m,FA30m G Codes Necessary: No LUEBBERMARINO ACID DUMPER Mar 17, 2016 09:26
--- NOTE | 2016-03-17 10:05 | Progress Note (SOAP) ---
Subjective Subjective/Events-last exam no diarrhea. Onset yesterday. Patient states she's 40-50 percent better. Patient taken a shower by herself. Patient improving Objective Exam Vital Signs Date Time Temp Pulse Resp B/P Pulse Ox O2 Delivery O2 Flow Rate FiO2 03/17/16 06:00 99.3 97 20 134/87 97 Room Air 03/16/16 18:37 100.8 100 20 119/70 96 Room Air I & O 03/17/16 07:00 Intake Total 1630 ml Balance 1630 ml Capillary Refill : Less Than 3 Seconds General Appearance: No Apparent Distress WD/WN HEENT: Normal ENT Inspection Neck: Normal Inspection Results Lab Laboratory Tests 03/16/16 10:56: Glucometer 195H 03/16/16 15:47: Glucometer 193H 03/16/16 20:51: Glucometer 210H 03/17/16 05:17: Glucometer 179H, Anion Gap 9, BUN/Creatinine Ratio 12, Blood Urea Nitrogen 16, Calcium Level 8.4L, Carbon Dioxide Level 19L, Chloride Level 106, Creatinine 1.36H, Estimat Glomerular Filtration Rate 40, Glucose Level 158H, Potassium Level 3.9, Sodium Level 134L Microbiology 03/09/16 C. difficile GDH Antigen & Toxins - Final, Complete Assessment/Plan Assessment/Plan Assess & Plan/Chief Complaint left below the knee amputation. Diabetes. Peripheral vascular disease. Depression history. Hypertension history. . 03/11/16 left below knee amputation. Diabetes. Peripheral vascular disease. History of hypertension. C. difficile. Hypotensive. Health lisinopril. . Left knee below amputation. Diabetes. Peripheral vascular disease. History of atrial fibrillation. Patient in sinus rhythm. Hypotension. C. difficile. Diarrhea improving. . 03/15/16. Left below the knee amputation. Diabetes. Peripheral vascular disease. Depression history. Atrial fib. Blood pressure goodt and heart rate within normal limits. . 03/16/16. Left below the knee amputation. Peripheral vascular disease. Diabetes. C. difficile. History of atrial fibrillation. Diarrhea better. Potassium 3.3 Will replace. Patient has renal insufficiency. . 03/17/16. Left below the knee amputation. Diabetes. Peripheral vascular disease. Depression history. Patient doing better. Patient happy. Patient improving Diagnosis/Problems: Clinical Quality Measures DVT/VTE Risk/Contraindication: Risk Factor Score Per Nursin RFS Level Per Nursing on Admit: 4+=Very High URSULA RENEE DO Mar 17, 2016 10:05
--- NOTE | 2016-03-17 14:29 | Physical Therapy Daily Note ---
PT Daily Note-Current Subjective Agrees to Rx. Pain Numeric Pain Scale: 0-No Pain Mental Status Patient Orientation: Normal For Age Transfers Functional [place] Measure 0=Not Assessed/NA 4=Minimal Assistance 1=Total Assistance 5=Supervision or Setup 2=Maximal Assistance 6=Modified [place] 3=Moderate Assistance 7=Complete IndependenceIRFPAI Quality Coding Scale 6 Independent with activity with or without an assistive device 5 Patient requires set up or clean up by helper. Patient completes activity by themselves 4 Supervision or touching assist (CGA). [place] provide cues , steadying assist 3 The helper provides less than half the effort to complete the activity 2 The helper provides more than half the effort to complete the activity 1 Dependent. The helper does all the effort to complete an activity 7 Patient refused to complete or attempt activity 9 The patient did not perform the activity before the current illness or injury 88 Not attempted due to Medical conditions or safety concerns sup to sit and sit to stands x3 all CGA to min with levels all raised Wheelchair Training Type of Wheelchair: Manual 20ftx2 inside confines of room, pt. needs instruction Exercises Seated Therapy Exercises: Ankle pumps, Sit to stand, Long arc quads, Hip flexion, Hip abd/add Seated Reps: 12 Assessment Current Status: Good Progress PT Short Term Goals Short Term Goals Time Frame: Mar 17, 2016 Gait (FIM): 1 Gait Distance Comment: 10' Gait Level of Assist: 4 Gait Assistive Device: FWW Wheelchair Distance: 150' PT Usp Goals Fish Grader Goals PT Fish Grader Goals Time Frame: Mar 31, 2016 Transfers (B,C,W/C) (FIM): 5 Sit to Lying (QC): 4 Lying-Sitting on Side/Bed(QC): 4 Sit to Stand (QC): 4 Rollin Roll Left to Right (QC): 4 Chair/Big-gx-Yuhzw Xfer(QC): 4 Car Transfer (QC): 4 Gait (FIM): 1 Distance: 20' Walk 10 feet (QC): 4 Walk 10ft-Uneven Surface(QC): 4 Walk 50ft with 2 Turns (QC): 88 Walk 150 ft (QC): 88 Gait Level of Assist: 5 Gait Assistive Device: FWW Wheelchair (FIM): 6 Distance: 150' Wheelchair Level of Assist: 6 Wheel 50 feet with 2 turns (QC: 6 Stairs (FIM): 2 # of Steps: 4 1 Step (curb) (QC): 4 4 Steps (QC): 4 12 Steps (QC): 88 Stairs Level Of Assist: 4 Picking up an Object (QC): 88 PT Plan Treatment/Plan Treatment Plan: Continue Plan of Care Treatment Plan: Bed Mobility, Education, Functional Activity Mahad, Functional Strength, Group Therapy, Gait, Safety, Therapeutic Exercise, Transfers Treatment Duration: Mar 31, 2016 Visits Per Week: 10-11 Minutes/Day (M-F): 60-90 Minutes/Day (Sat/[place]): 15-30 Safety Risks/Education Patient Education: Transfer Techniques Teaching Recipient: Patient Teaching Methods: Demonstration, Discussion Response to Teaching: Verbalize Understanding, Return Demonstration, Reinforcement Needed Time/GCodes Time In: 1230 Time Out: 1300 Total Billed Treatment Time: 30 Total Billed Treatment 1,FA30 G Codes Necessary: MARINO Roca FIELD HANDYMAN Mar 17, 2016 14:29
--- NOTE | 2016-03-17 15:10 | Cardiology Progress Note ---
Subjective Subjective/Events-last exam Patient is in bed, had low-grade fever. Denied any chest pain or shortness of breath Objective-Cardiology Exam Last Set of Vital Signs Vital Signs 03/17/16 06:00 Temp 99.3 Pulse 97 Resp 20 B/P 134/87 Pulse Ox 97 O2 Delivery Room Air Capillary Refill : Less Than 3 Seconds I&O Intake and Output 03/17/16 00:00 Intake Total 1530 ml Balance 1530 ml Intake Oral 1530 ml # Voids 8 # Bowel Movements 2 General: Alert, Oriented X3, Cooperative, No Acute Distress HEENT: Atraumatic Neck: Supple, No JVD, No Thyromegaly Lungs: Clear to Auscultation, Normal Air Movement Heart: Regular Rate, Normal S1, Normal S2, No Murmurs Abdomen: Normal Bowel Sounds, Soft, No Tenderness Extremities: No Clubbing, No Cyanosis Skin: No Rashes, No Breakdown, No Significant Lesion, Other (L anterior Knee - 2.0 x 2.4 x 0.1 cm; 100% scab. Sacral area - cluster of 3 midline wounds, largest - 0.7 x 1.1 x 0.2 cm; base 100% biofilm.) Neuro: Normal Speech, Strength at 5/5 X4 Ext, Other (mild weakness RLE) Psych/Mental Status: Mental Status NL Results Lab Laboratory Tests 03/17/16 05:17 A/P-Cardiology Admission Diagnosis Hypotension Paroxysmal atrial fibrillation Hyperlipidemia Peripheral arterial disease Diabetes mellitus Assessment/Plan Hypotension, probably secondary to hypovolemia in addition to her aggressive antihypertensive medications. Better at this time, stay off XOCHITL inhibitor, continue on Cardizem and monitor blood pressure. Paroxysmal atrial fibrillation, reporting episode of atrial fibrillation during her hospital stay in January at [facility], [place]. She is not on oral anticoagulation, no signs of bleeding. Probably transient episode of atrial fibrillation. She denied any previous history prior to her surgery. No syncope was reported. Currently in sinus rhythm. Continue to monitor C. difficile colitis, still having diarrhea, had low-grade fever, treated by primary care physician, I will evaluate CBC and metabolic profile History of hypertension, status post hypotension, blood pressure is better. Continue to monitor Peripheral arterial disease, extensive, continue to monitor closely. 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 Mild hypokalemia, monitor electrolytes Anemia, monitor H&H Hyperlipidemia, maintained on Lipitor. Monitor lipids Diabetes mellitus, followed and managed by primary care physician Tobaccoism, educated in length on smoking cessation Depression, anxiety. Managed by primary care physician Debility, receiving physical therapy Clinical Quality Measures DVT/VTE Risk/Contraindication: Risk Factor Score Per Nursin RFS Level Per Nursing on Admit: 4+=Very High MILADY SHANNON MD Mar 17, 2016 15:10
[2016-03-17 19:09] VITALS: BP 124/85
[2016-03-17] MEDS: oxyCODONE/APAP 5/325MG (PERCOCET 5) TABLET PO PRN (20:34)
[2016-03-17] MEDS: ENOXAPARIN 40 MG/0.4 ML (LOVENOX) SYR SC SCH (20:34)
[2016-03-17] MEDS: ATORVASTATIN 40 MG (LIPITOR) TABLET PO SCH (20:34)
[2016-03-17] MEDS: inSUlin DETERMIR 1 UNIT/0.01 ML (LEVEMIR) CHARGE PER UNIT SQ SCH (20:34)
[2016-03-17] MEDS: ALPRAZolam 0.5 MG (XANAX) TAB PO PRN (21:30)
[2016-03-17 21:33] LABS: BILIRUBIN,URINE NEGATIVE (NEGATIVE); KETONES,URINE NEGATIVE (NEGATIVE); LEUKOCYTE ESTERASE ,URINE 3+ (NEGATIVE); NITRITE,URINE POSITIVE (NEGATIVE); PH,URINE 6 (5-9); PROTEIN,URINE 2+ (NEGATIVE); UROBILINOGEN,URINE NORMAL (NORMAL)
[2016-03-17 21:42] LABS: WBC,URINE 50-100 /HPF
[2016-03-18] MEDS: VANCOMYCIN ORAL 250 MG/5 ML 60 ML PO SCH ×10 (00:20→22:59)
[2016-03-18] MEDS: oxyCODONE/APAP 5/325MG (PERCOCET 5) TABLET PO PRN ×3 (02:11→21:11)
[2016-03-18] MEDS: inSUlin (REGULAR) HUMAN 1 UNIT/0.01 ML (CHARGE PER UNIT) SC SCH ×4 (05:41→21:00)
[2016-03-18 06:00] VITALS: BP 95/63
[2016-03-18 06:05] LABS: BASOPHILS # (AUTO) 0.1 10^3/uL (0.0-0.1); BASOPHILS % (AUTO) 1 % (0-10); EOSINOPHILS # (AUTO) 0.3 10^3/uL (0.0-0.3); EOSINOPHILS % (AUTO) 4 % (0-10); LYMPHOCYTES # (AUTO) 1.9 X 10^3 (1.0-4.0); LYMPHOCYTES % (AUTO) 23 % (12-44); MEAN CORPUSCULAR HEMOGLOBIN 29 PG (25-34); MEAN CORPUSCULAR HGB CONC 33 G/DL (32-36); MEAN CORPUSCULAR VOLUME 88 FL (80-99); MEAN PLATELET VOLUME 9.5 FL (7.4-10.4); MONOCYTES # (AUTO) 1.1 X 10^3 (0.0-1.0); MONOCYTES % (AUTO) 13 % (0-12); NEUTROPHILS # (AUTO) 5.1 X 10^3 (1.8-7.8); NEUTROPHILS % (AUTO) 60 % (42-75); PLATELET COUNT 404 10^3/uL (130-400); RED BLOOD COUNT 3.38 10^6/uL (4.35-5.85); RED CELL DISTRIBUTION WIDTH 15.3 % (10.0-14.5); WHITE BLOOD COUNT 8.4 10^3/uL (4.3-11.0)
--- NOTE | 2016-03-18 08:13 | Occupational Ther Daily Note ---
OT Current Status-Daily Note Subjective Late note, treatment completed on 03/17/16. Pt alert, sitting in w/c. Pt agreed to therapy. No c/o pain at this time. Mental Status/Objective Patient Orientation: Person, Place, Time, Situation Functional [place] Measure 0=Not Assessed/NA 4=Minimal Assistance 1=Total Assistance 5=Supervision or Setup 2=Maximal Assistance 6=Modified [place] 3=Moderate Assistance 7=Complete [place] ADL-Treatment Pt transferred from w/c to shower chair with mod A. Pt transported to shower in shower chair then completed own shower after set up. Pt then sat at sink and completed own grooming skills. Pt was able to dress upper body by self after set up then was able to don pants over foot and stump by self. Min A when standing with FWW to hike pants over hips. Pt able to don/doff socks by self after set up. Functional [place] Measure 0=Not Assessed/NA 4=Minimal Assistance 1=Total Assistance 5=Supervision or Setup 2=Maximal Assistance 6=Modified [place] 3=Moderate Assistance 7=Complete IndependenceIRFPAI Quality Coding Scale 6 Independent with activity with or without an assistive device 5 Patient requires set up or clean up by helper. Patient completes activity by themselves 4 Supervision or touching assist (CGA). [place] provide cues , steadying assist 3 The helper provides less than half the effort to complete the activity 2 The helper provides more than half the effort to complete the activity 1 Dependent. The helper does all the effort to complete an activity 7 Patient refused to complete or attempt activity 9 The patient did not perform the activity before the current illness or injury 88 Not attempted due to Medical conditions or safety concerns Grooming (FIM): 6 Bathing (FIM): 5 Upper Body (FIM): 5 Lower Body Dressing (FIM): 4 Transfers (B, C, W/C) (FIM): 4 Toilet/Commode Transfer (FIM): 4 Other Treatment Pt transferred into w/c with min A using FWW. Completed theraputty exercises to increase strength and dexterity of hands for daily functional tasks. After therapy, pt sitting in w/c with call light/phone in reach. All needs met in room. OT Short Term Goals Short Term Goals Time Frame: Mar 17, 2016 Bathing(FIM): 4 Lower Body Dressing(FIM): 3 Toileting(FIM): 3 Toilet/Commode Transfer(FIM): 4 Shower Transfer(FIM): 3 Additional Short Term Goals: 1-Demonstrate ADL Tasks, 2-Verbalize Understanding , 3-ImproveStrength/Mahad 1=Demonstrate adherence to instructed precautions during ADL tasks. 2=Patient will verbalize/demonstrate understanding of assistive devices/ modifications for ADL. 3=Patient will improve strength/tolerance for activity to enable patient to perform ADL's. OT Mcfp Goals Town Marshal Goals Time Frame: Mar 31, 2016 Eating (FIM): 6 Eating (QC): 6 Oral Hygiene (QC): 6 Grooming(FIM): 6 Bathing(FIM): 5 Shower/Bathe Self (QC): 4 Upper Body Dressing(FIM): 6 Upper Body Dressing (QC): 6 Lower Body Dressing(FIM): 5 Lower Body Dressing (QC): 4 On/Off Footwear (QC): 5 Toileting(FIM): 5 Toileting Hygiene (QC): 4 Toilet/Commode Transfer(FIM): 5 Toilet/Commode Transfer (QC): 4 Shower Transfer(FIM): 4 Additional Goals: 1-Demonstrate ADL Tasks, 2-Verbalize Understanding, 3- ImproveStrength/Mahad 1=Demonstrate adherence to instructed precautions during ADL tasks. 2=Patient will verbalize/demonstrate understanding of assistive devices/ modifications for ADL. 3=Patient will improve strength/tolerance for activity to enable patient to perform ADL's. OT Education/Plan Problem List/Assessment Pt demonstrates decreased mobility, strength, activity tolerance, and ADL performance. Pt to benefit from skilled OT intervention for ADL training, transfers, strengthening, adaptive equipment training as needed, and home safety education to maximize level of function and allow safe discharge. Discharge Recommendations Plan/Recommendations: Continue POC Treatment Plan/Plan of Care Patient would benefit from OT for education, treatment and training to promote independence in ADL's, mobility, safety and/or upper extremity function for ADL' s. Plan of Care: ADL Retraining, Functional Mobility, Group Exercise/Act as Ind, UE Funct Exercise/Act Treatment Duration: Mar 31, 2016 Visits Per Week: 10-11 Minutes/Day (M-F): 60-90 Minutes/Day (Sat/[place]): PRN Agreement: Yes Rehab Potential: Fair Time/GCodes Start Time: 09:30 Stop Time: 11:00 Total Time Billed (hr/min): 90 Billed Treatment Time 1 visit-ADL 5 (75 min) EX 1 (15 min) ANA HWANG Mar 18, 2016 08:13
--- NOTE | 2016-03-18 08:21 | Progress Note (SOAP) ---
Subjective Subjective/Events-last exam patient feeling better today. Patient not having any diarrhea. Patient has C. difficile. UA shows urinary tract infection. Waiting for sensitivity. We'll put on antibiotics only for 2 days Objective Exam Vital Signs Date Time Temp Pulse Resp B/P Pulse Ox O2 Delivery O2 Flow Rate FiO2 03/18/16 06:00 96.2 77 20 95/63 96 Room Air 03/17/16 19:09 98.9 99 16 124/85 99 I & O 03/18/16 07:00 Intake Total 1120 ml Balance 1120 ml Capillary Refill : Less Than 3 Seconds General Appearance: No Apparent Distress WD/WN Results Lab Laboratory Tests 03/18/16 05:27 Laboratory Tests 03/17/16 11:21: Glucometer 179H 03/17/16 16:14: Glucometer 184H 03/17/16 20:20: Glucometer 216H 03/17/16 20:28: Urine Bacteria LARGEH, Urine Bilirubin NEGATIVE, Urine Casts NONE, Urine Clarity SLIGHTLY CLOUDY, Urine Color YELLOW, Urine Crystals NONE, Urine Culture Indicated YES, Urine Glucose (UA) NEGATIVE, Urine Ketones NEGATIVE, Urine Leukocyte Esterase 3+H, Urine Mucus NEGATIVE, Urine Nitrite POSITIVEH, Urine Protein 2+H, Urine RBC 2-5H, Urine RBC (Auto) 2+H, Urine Specific [place] 1.010L , Urine Squamous Epithelial Cells 2-5, Urine Urobilinogen NORMAL, Urine WBC 50- 100H, Urine pH 6 03/18/16 05:25: Glucometer 143H 03/18/16 05:27: Basophils # (Auto) 0.1, Basophils (%) (Auto) 1, Eosinophils # (Auto) 0.3, Eosinophils (%) (Auto) 4, Hematocrit 30L, Hemoglobin 9.8L, Lymphocytes # (Auto) 1.9, Lymphocytes (%) (Auto) 23, Mean Corpuscular Hemoglobin 29, Mean Corpuscular Hemoglobin Concent 33, Mean Corpuscular Volume 88, Mean Platelet Volume 9.5, Monocytes # (Auto) 1.1H, Monocytes (%) (Auto) 13H, Neutrophils # ( Auto) 5.1, Neutrophils (%) (Auto) 60, Platelet Count 404H, Red Blood Count 3.38L , Red Cell Distribution Width 15.3H, White Blood Count 8.4 Microbiology 03/09/16 C. difficile GDH Antigen & Toxins - Final, Complete 03/17/16 Urine Culture - Preliminary, Resulted Gram Negative Song Assessment/Plan Assessment/Plan Assess & Plan/Chief Complaint left below the knee amputation. Diabetes. Peripheral vascular disease. Depression history. Hypertension history. . 03/11/16 left below knee amputation. Diabetes. Peripheral vascular disease. History of hypertension. C. difficile. Hypotensive. Health lisinopril. . Left knee below amputation. Diabetes. Peripheral vascular disease. History of atrial fibrillation. Patient in sinus rhythm. Hypotension. C. difficile. Diarrhea improving. . 03/15/16. Left below the knee amputation. Diabetes. Peripheral vascular disease. Depression history. Atrial fib. Blood pressure goodt and heart rate within normal limits. . 03/16/16. Left below the knee amputation. Peripheral vascular disease. Diabetes. C. difficile. History of atrial fibrillation. Diarrhea better. Potassium 3.3 Will replace. Patient has renal insufficiency. . 03/17/16. Left below the knee amputation. Diabetes. Peripheral vascular disease. Depression history. Patient doing better. Patient happy. Patient improving. . 03/18/16. Left below the knee amputation. Diabetes. 4 vascular disease. Depression history. UA shows infection. C. difficile. To put on antibiotics only for 2 days when get sensitivity Diagnosis/Problems: Clinical Quality Measures DVT/VTE Risk/Contraindication: Risk Factor Score Per Nursin RFS Level Per Nursing on Admit: 4+=Very High URSULA RENEE DO Mar 18, 2016 08:21
--- NOTE | 2016-03-18 09:01 | PM & R (SOAP) Progress Note ---
Subjective Subjective/Events-last exam Patient was seen in her room this AM Stools well formed Fever down UC&S shows Gram Negative rods Patient on Vanco PO for CDIF Stool for cdif +.Residual limb healin well and shaping well.Patient min assist for transfers Objective Exam Last Set of Vital Signs Vital Signs Date Time Temp Pulse Resp B/P Pulse Ox O2 Delivery O2 Flow Rate FiO2 03/18/16 06:00 96.2 77 20 95/63 96 Room Air Capillary Refill : Less Than 3 Seconds I&O Intake and Output 03/18/16 00:00 Intake Total 920 ml Balance 920 ml Intake Oral 920 ml # Voids 6 General: Alert, Oriented X3, Cooperative, No Acute Distress HEENT: Atraumatic Neck: Supple, No JVD, No Thyromegaly Lungs: Clear to Auscultation, Normal Air Movement Heart: Regular Rate, Normal S1, Normal S2, No Murmurs Abdomen: Normal Bowel Sounds, Soft, No Tenderness Extremities: No Clubbing, No Cyanosis Skin: No Rashes, No Breakdown, No Significant Lesion, Other (L anterior Knee - 2.0 x 2.4 x 0.1 cm; 100% scab. Sacral area - cluster of 3 midline wounds, largest - 0.7 x 1.1 x 0.2 cm; base 100% biofilm.) Neuro: Normal Speech, Strength at 5/5 X4 Ext, Other (mild weakness RLE) Psych/Mental Status: Mental Status NL Results Lab Laboratory Tests 03/15/16 10:59: Glucometer 145H 03/15/16 15:35: Glucometer 198H 03/15/16 20:18: Glucometer 214H 03/16/16 05:30: Anion Gap 10, BUN/Creatinine Ratio 13, Blood Urea Nitrogen 19H, Calcium Level 8.2L, Carbon Dioxide Level 19L, Chloride Level 106, Creatinine 1.42H, Estimat Glomerular Filtration Rate 38, Glucose Level 172H, Potassium Level 3.3L, Sodium Level 135 03/16/16 05:39: Glucometer 163H 03/16/16 10:56: Glucometer 195H 03/16/16 15:47: Glucometer 193H 03/16/16 20:51: Glucometer 210H 03/17/16 05:17: Anion Gap 9, BUN/Creatinine Ratio 12, Blood Urea Nitrogen 16, Calcium Level 8.4L , Carbon Dioxide Level 19L, Chloride Level 106, Creatinine 1.36H, Estimat Glomerular Filtration Rate 40, Glucometer 179H, Glucose Level 158H, Potassium Level 3.9, Sodium Level 134L 03/17/16 11:21: Glucometer 179H 03/17/16 16:14: Glucometer 184H 03/17/16 20:20: Glucometer 216H 03/17/16 20:28: Urine Bacteria LARGEH, Urine Bilirubin NEGATIVE, Urine Casts NONE, Urine Clarity SLIGHTLY CLOUDY, Urine Color YELLOW, Urine Crystals NONE, Urine Culture Indicated YES, Urine Glucose (UA) NEGATIVE, Urine Ketones NEGATIVE, Urine Leukocyte Esterase 3+H, Urine Mucus NEGATIVE, Urine Nitrite POSITIVEH, Urine Protein 2+H, Urine RBC 2-5H, Urine RBC (Auto) 2+H, Urine Specific [place] 1.010L , Urine Squamous Epithelial Cells 2-5, Urine Urobilinogen NORMAL, Urine WBC 50- 100H, Urine pH 6 03/18/16 05:25: Glucometer 143H 03/18/16 05:27: Basophils # (Auto) 0.1, Basophils (%) (Auto) 1, Eosinophils # (Auto) 0.3, Eosinophils (%) (Auto) 4, Hematocrit 30L, Hemoglobin 9.8L, Lymphocytes # (Auto) 1.9, Lymphocytes (%) (Auto) 23, Mean Corpuscular Hemoglobin 29, Mean Corpuscular Hemoglobin Concent 33, Mean Corpuscular Volume 88, Mean Platelet Volume 9.5, Monocytes # (Auto) 1.1H, Monocytes (%) (Auto) 13H, Neutrophils # ( Auto) 5.1, Neutrophils (%) (Auto) 60, Platelet Count 404H, Red Blood Count 3.38L , Red Cell Distribution Width 15.3H, White Blood Count 8.4 Microbiology 03/09/16 C. difficile GDH Antigen & Toxins - Final, Complete 03/17/16 Urine Culture - Preliminary, Resulted Gram Negative Song Assessment/Plan Assessment Left BKA 02-01-16 OSH for gangrenous left foot Postop C DIF bowel colitis associated with sepsis treated at OSH-now on Vanco for ongoing treatment Mild Hypokalemia Mild postop Anemia IDDM controlled HTN with hx of afib now sinus with hypotension depression on meds Tobaccoism declines Smoking cessation Trace edema rt ankle Uncertain if patient would tolerate Freddy jimenae-Lasix prn ordered-one dose ordered with improvement UTI with fever now afebrile on Vanco Check sensitivity Plan Continue PT/OT DR Barrios to see re cardiac meds with echo ordered-done appreciate his consult and f/u recheck labs-done Lasix times one done-edema improved Completed course of Flagyl for Cdif now on course of Vanco with meds adjusted to promote formed stools Team Conference held 03-16-16-see report for full functional update and POC and ELOS F/U re sensitivity of Gram Negative rods. IRMA ESPINOZA MD Mar 18, 2016 09:01
--- NOTE | 2016-03-18 09:07 | Physical Therapy Daily Note ---
PT Daily Note-Current Subjective Pt. agrees toRx. States she had a little fever symptoms last night but she feels better now. Dr. Christina visited during rx and explains to pt. that she has a UTI and he is assessing how to approach it with ABX Pain Numeric Pain Scale: 0-No Pain Mental Status Patient Orientation: Normal For Age Transfers Functional [place] Measure 0=Not Assessed/NA 4=Minimal Assistance 1=Total Assistance 5=Supervision or Setup 2=Maximal Assistance 6=Modified [place] 3=Moderate Assistance 7=Complete IndependenceIRFPAI Quality Coding Scale 6 Independent with activity with or without an assistive device 5 Patient requires set up or clean up by helper. Patient completes activity by themselves 4 Supervision or touching assist (CGA). [place] provide cues , steadying assist 3 The helper provides less than half the effort to complete the activity 2 The helper provides more than half the effort to complete the activity 1 Dependent. The helper does all the effort to complete an activity 7 Patient refused to complete or attempt activity 9 The patient did not perform the activity before the current illness or injury 88 Not attempted due to Medical conditions or safety concerns Transfers (B, C, W/C) (FIM): 4 Scootin Rollin Supine to/from Sit: 5 Sit to/from Stand: 4 Bed to/from Chair: 4 SPTs bed to chair and back x5 Wheelchair Training Does the Pt Use a Wheelchair?: Yes Wheelchair Distance: 1=920-85 ft (50ftx3) Wheelchair Level of Assist: 5 Wheel 50 ft with 2 turns (QC): 5 Type of Wheelchair: Manual in small confines of room in bathroom and around bed etc Exercises Supine Ex: Bridging, Ankle pumps, Quad Set, Rolling, Glut sets, Heel Slides, Knee to chest, Short Arc Quads, Scooting, Straight leg raise, Hip abd/add Supine Reps: 15 (sidelying as well for hip ext and abd) Assessment Current Status: Excellent Progress PT Short Term Goals Short Term Goals Time Frame: Mar 17, 2016 Gait (FIM): 1 Gait Distance Comment: 10' Gait Level of Assist: 4 Gait Assistive Device: FWW Wheelchair Distance: 150' PT Shelter Goals Shelter Goals PT Risk Officer Goals Time Frame: Mar 31, 2016 Transfers (B,C,W/C) (FIM): 5 Sit to Lying (QC): 4 Lying-Sitting on Side/Bed(QC): 4 Sit to Stand (QC): 4 Rollin Roll Left to Right (QC): 4 Chair/Sbr-ej-Rvtar Xfer(QC): 4 Car Transfer (QC): 4 Gait (FIM): 1 Distance: 20' Walk 10 feet (QC): 4 Walk 10ft-Uneven Surface(QC): 4 Walk 50ft with 2 Turns (QC): 88 Walk 150 ft (QC): 88 Gait Level of Assist: 5 Gait Assistive Device: FWW Wheelchair (FIM): 6 Distance: 150' Wheelchair Level of Assist: 6 Wheel 50 feet with 2 turns (QC: 6 Stairs (FIM): 2 # of Steps: 4 1 Step (curb) (QC): 4 4 Steps (QC): 4 12 Steps (QC): 88 Stairs Level Of Assist: 4 Picking up an Object (QC): 88 PT Plan Treatment/Plan Treatment Plan: Continue Plan of Care Treatment Plan: Bed Mobility, Education, Functional Activity Mahad, Functional Strength, Group Therapy, Gait, Safety, Therapeutic Exercise, Transfers Treatment Duration: Mar 31, 2016 Visits Per Week: 10-11 Minutes/Day (M-F): 60-90 Minutes/Day (Sat/[place]): 15-30 Safety Risks/Education Patient Education: Transfer Techniques, Correct Positioning, Disease Process, Safety Issues Teaching Recipient: Patient Teaching Methods: Demonstration, Discussion Response to Teaching: Verbalize Understanding, Return Demonstration, Reinforcement Needed Time/GCodes Time In: 815 Time Out: 915 Total Billed Treatment Time: 60 Total Billed Treatment 1,FA25,WHC15,EX20 G Codes Necessary: MARINO Roca RESIDENTIAL CARPENTER Mar 18, 2016 09:07
[2016-03-18] MEDS: GABAPENTIN 600 MG (NEURONTIN) TAB PO SCH ×3 (09:13→21:05)
[2016-03-18] MEDS: DILTIAZEM 30 MG (CARDIZEM) TAB PO SCH ×3 (09:13→21:05)
[2016-03-18] MEDS: DULoxetine 30 MG (CYMBALTA) CAP PO SCH (09:13)
--- NOTE | 2016-03-18 10:48 | Occupational Ther Daily Note ---
OT Current Status-Daily Note Subjective Pt sitting in w/c, agrees to treatment. Pt states she is not having pain, but having "soreness" all over Mental Status/Objective Functional [place] Measure 0=Not Assessed/NA 4=Minimal Assistance 1=Total Assistance 5=Supervision or Setup 2=Maximal Assistance 6=Modified [place] 3=Moderate Assistance 7=Complete [place] ADL-Treatment Pt states she already dressed with minimal assistance for pants this morning. Has already completed grooming tasks at [facility] prior to therapy session. Pt transferred EOB to [facility] with minimal assistance using FWW. Pt able to pull pants down and complete toileting hygiene, but requires assist to pull pants up. Transfer to w/c with minimal assistance. Functional [place] Measure 0=Not Assessed/NA 4=Minimal Assistance 1=Total Assistance 5=Supervision or Setup 2=Maximal Assistance 6=Modified [place] 3=Moderate Assistance 7=Complete IndependenceIRFPAI Quality Coding Scale 6 Independent with activity with or without an assistive device 5 Patient requires set up or clean up by helper. Patient completes activity by themselves 4 Supervision or touching assist (CGA). [place] provide cues , steadying assist 3 The helper provides less than half the effort to complete the activity 2 The helper provides more than half the effort to complete the activity 1 Dependent. The helper does all the effort to complete an activity 7 Patient refused to complete or attempt activity 9 The patient did not perform the activity before the current illness or injury 88 Not attempted due to Medical conditions or safety concerns Toileting (FIM): 3 Toilet/Commode Transfer (FIM): 4 Other Treatment Pt completed bilateral UE exercises to increase strength needed for ADLs and functional transfers. Pt performed shoulder horizontal abduction, flexion, abduction, biceps curls, and triceps extension exercises x20 reps with green theraband. Pt fatigues with exercises and requires occasional rest breaks during activity. Modified chair push ups x10 reps, 2 sets to increase strength needed for transfers. Pt performed forward press, overhead press, and wrist flex /ext exercises x20 reps with dowel sandra. Pt completed putty activity with bilateral hands to increase resident service coordinator strength. Pt able to remove small beads from putty using bilateral hands. Pt performed sit to stand x5 reps to increase strength and safety for transfers. Rest breaks between trials. Pt able to complete sit to stand with CGA using FWW. Transfer w/c<-> EOB x3 reps with minimal assistance using FWW. Pt more consistent with transfers this date. Pt sitting EOB with needs met after session. OT Short Term Goals Short Term Goals Time Frame: Mar 17, 2016 Bathing(FIM): 4 Lower Body Dressing(FIM): 3 Toileting(FIM): 3 Toilet/Commode Transfer(FIM): 4 Shower Transfer(FIM): 3 Additional Short Term Goals: 1-Demonstrate ADL Tasks, 2-Verbalize Understanding , 3-ImproveStrength/Mahad 1=Demonstrate adherence to instructed precautions during ADL tasks. 2=Patient will verbalize/demonstrate understanding of assistive devices/ modifications for ADL. 3=Patient will improve strength/tolerance for activity to enable patient to perform ADL's. OT Patient Access Specialist Goals Correction Goals Time Frame: Mar 31, 2016 Eating (FIM): 6 Eating (QC): 6 Oral Hygiene (QC): 6 Grooming(FIM): 6 Bathing(FIM): 5 Shower/Bathe Self (QC): 4 Upper Body Dressing(FIM): 6 Upper Body Dressing (QC): 6 Lower Body Dressing(FIM): 5 Lower Body Dressing (QC): 4 On/Off Footwear (QC): 5 Toileting(FIM): 5 Toileting Hygiene (QC): 4 Toilet/Commode Transfer(FIM): 5 Toilet/Commode Transfer (QC): 4 Shower Transfer(FIM): 4 Additional Goals: 1-Demonstrate ADL Tasks, 2-Verbalize Understanding, 3- ImproveStrength/Mahad 1=Demonstrate adherence to instructed precautions during ADL tasks. 2=Patient will verbalize/demonstrate understanding of assistive devices/ modifications for ADL. 3=Patient will improve strength/tolerance for activity to enable patient to perform ADL's. OT Education/Plan Problem List/Assessment Pt demonstrates decreased mobility, strength, activity tolerance, and ADL performance. Pt to benefit from skilled OT intervention for ADL training, transfers, strengthening, adaptive equipment training as needed, and home safety education to maximize level of function and allow safe discharge. Discharge Recommendations Plan/Recommendations: Continue POC Treatment Plan/Plan of Care Patient would benefit from OT for education, treatment and training to promote independence in ADL's, mobility, safety and/or upper extremity function for ADL' s. Plan of Care: ADL Retraining, Functional Mobility, Group Exercise/Act as Ind, UE Funct Exercise/Act Treatment Duration: Mar 31, 2016 Visits Per Week: 10-11 Minutes/Day (M-F): 60-90 Minutes/Day (Sat/[place]): PRN Agreement: Yes Rehab Potential: Fair Time/GCodes Start Time: 09:15 Stop Time: 10:45 Total Time Billed (hr/min): 90 Billed Treatment Time 1 visit, ADL(15minutes), FAx2(30minutes), EXx3(45minutes) OLIVIA NELSON OT Mar 18, 2016 10:48
--- NOTE | 2016-03-18 14:53 | Physical Therapy Daily Note ---
PT Daily Note-Current Subjective Pt. agrees to Rx. Asleep upon entering. Agrees to Ex and TRFs. Requests toilet TRF. c/o pain in right foot, " neuropathy pain, shooting pain" Pain Numeric Pain Scale: 10-Worst Possible Pain Location: Right Location Body Site: Foot Pain Description: Cramping Mental Status Patient Orientation: Normal For Age Transfers Functional [place] Measure 0=Not Assessed/NA 4=Minimal Assistance 1=Total Assistance 5=Supervision or Setup 2=Maximal Assistance 6=Modified [place] 3=Moderate Assistance 7=Complete IndependenceIRFPAI Quality Coding Scale 6 Independent with activity with or without an assistive device 5 Patient requires set up or clean up by helper. Patient completes activity by themselves 4 Supervision or touching assist (CGA). [place] provide cues , steadying assist 3 The helper provides less than half the effort to complete the activity 2 The helper provides more than half the effort to complete the activity 1 Dependent. The helper does all the effort to complete an activity 7 Patient refused to complete or attempt activity 9 The patient did not perform the activity before the current illness or injury 88 Not attempted due to Medical conditions or safety concerns TRFs sup to sit x2 with min to mod assist with bed flat and use of rails. This INSURANCE VERIFICATION REP feels confident pt. would TRF sup to sit if she were on firm surface Gait Training scooting steps left or right with FWW only 2-3 real hop type steps taken Exercises Supine Ex: Bridging, Ankle pumps, Quad Set, Rolling, Glut sets, Heel Slides, Short Arc Quads, Scooting, Straight leg raise, Hip abd/add Supine Reps: 15 Assessment Current Status: Good Progress fatigues and struggles with movement and safety when fatigued PT Short Term Goals Short Term Goals Time Frame: Mar 17, 2016 Gait (FIM): 1 Gait Distance Comment: 10' Gait Level of Assist: 4 Gait Assistive Device: FWW Wheelchair Distance: 150' PT Industrial Maintenance Tech Goals Residential Goals PT Residential Goals Time Frame: Mar 31, 2016 Transfers (B,C,W/C) (FIM): 5 Sit to Lying (QC): 4 Lying-Sitting on Side/Bed(QC): 4 Sit to Stand (QC): 4 Rollin Roll Left to Right (QC): 4 Chair/Xrs-hq-Sxbbo Xfer(QC): 4 Car Transfer (QC): 4 Gait (FIM): 1 Distance: 20' Walk 10 feet (QC): 4 Walk 10ft-Uneven Surface(QC): 4 Walk 50ft with 2 Turns (QC): 88 Walk 150 ft (QC): 88 Gait Level of Assist: 5 Gait Assistive Device: FWW Wheelchair (FIM): 6 Distance: 150' Wheelchair Level of Assist: 6 Wheel 50 feet with 2 turns (QC: 6 Stairs (FIM): 2 # of Steps: 4 1 Step (curb) (QC): 4 4 Steps (QC): 4 12 Steps (QC): 88 Stairs Level Of Assist: 4 Picking up an Object (QC): 88 PT Plan Treatment/Plan Treatment Plan: Continue Plan of Care Treatment Plan: Bed Mobility, Education, Functional Activity Mahad, Functional Strength, Group Therapy, Gait, Safety, Therapeutic Exercise, Transfers Treatment Duration: Mar 31, 2016 Visits Per Week: 10-11 Minutes/Day (M-F): 60-90 Minutes/Day (Sat/[place]): 15-30 Safety Risks/Education Patient Education: Transfer Techniques, Issued Written HEP, Correct Positioning , W/C Management, Disease Process, Safety Issues Teaching Recipient: Patient Teaching Methods: Demonstration, Discussion Response to Teaching: Verbalize Understanding, Return Demonstration, Reinforcement Needed Time/GCodes Time In: 1430 Time Out: 1500 Total Billed Treatment Time: 30 Total Billed Treatment 1,FA15,EX15 G Codes Necessary: MARINO Roca INSURANCE VERIFICATION REP Mar 18, 2016 14:53
[2016-03-18] MEDS: FUROSEMIDE 20 MG (LASIX) TAB PO PRN (17:29)
[2016-03-18] MEDS: AUGMENTIN 875 MG TAB (AMOXICILLIN/CLAVULANATE) PO SCH (17:29)
[2016-03-18 18:18] VITALS: BP 108/69
[2016-03-18] MEDS: ATORVASTATIN 40 MG (LIPITOR) TABLET PO SCH (21:05)
[2016-03-18] MEDS: ENOXAPARIN 40 MG/0.4 ML (LOVENOX) SYR SC SCH (21:05)
[2016-03-18] MEDS: inSUlin DETERMIR 1 UNIT/0.01 ML (LEVEMIR) CHARGE PER UNIT SQ SCH (21:06)
[2016-03-18] MEDS: ALPRAZolam 0.5 MG (XANAX) TAB PO PRN (23:03)
[2016-03-19 06:00] VITALS: BP 113/75
[2016-03-19] MEDS: inSUlin (REGULAR) HUMAN 1 UNIT/0.01 ML (CHARGE PER UNIT) SC SCH ×4 (06:00→22:38)
[2016-03-19] MEDS: AUGMENTIN 875 MG TAB (AMOXICILLIN/CLAVULANATE) PO SCH ×2 (06:18→16:25)
[2016-03-19] MEDS: VANCOMYCIN ORAL 250 MG/5 ML 60 ML PO SCH ×8 (06:19→23:31)
[2016-03-19] MEDS: DULoxetine 30 MG (CYMBALTA) CAP PO SCH (09:55)
[2016-03-19] MEDS: GABAPENTIN 600 MG (NEURONTIN) TAB PO SCH ×3 (09:55→20:17)
[2016-03-19] MEDS: DILTIAZEM 30 MG (CARDIZEM) TAB PO SCH ×3 (09:55→20:17)
--- NOTE | 2016-03-19 12:00 | Physical Therapy Daily Note ---
PT Daily Note-Current Subjective Pt agreeable. Pt denies pain. Pt sitting EOB. Transfers Functional [place] Measure 0=Not Assessed/NA 4=Minimal Assistance 1=Total Assistance 5=Supervision or Setup 2=Maximal Assistance 6=Modified [place] 3=Moderate Assistance 7=Complete IndependenceIRFPAI Quality Coding Scale 6 Independent with activity with or without an assistive device 5 Patient requires set up or clean up by helper. Patient completes activity by themselves 4 Supervision or touching assist (CGA). [place] provide cues , steadying assist 3 The helper provides less than half the effort to complete the activity 2 The helper provides more than half the effort to complete the activity 1 Dependent. The helper does all the effort to complete an activity 7 Patient refused to complete or attempt activity 9 The patient did not perform the activity before the current illness or injury 88 Not attempted due to Medical conditions or safety concerns Exercises Seated Therapy Exercises: Long arc quads, Hip flexion, Hip abd/add Seated Reps: 20 Treatments Pt seen for transfer training bed<->w/c x [address] with use of FWW and CGA. Practiced w/c mobility in room, going through doorway into bathroom, approach and proper positioning when preparing to SPT w/c to chair or bed. Pt in bedside chair post therapy session with (L) residual limb in ext with slide board placement under limb and R LE elevated. Assessment Current Status: Good Progress Pt steady and in good control with all transfers. Good ability to maneuver the w/c in tight spaces. Pt resting with all needs met post therapy. Call light in reach. PT Short Term Goals Short Term Goals Time Frame: Mar 17, 2016 Gait (FIM): 1 Gait Distance Comment: 10' Gait Level of Assist: 4 Gait Assistive Device: FWW Wheelchair Distance: 150' PT Intermediate Goals Chief Science Officer Goals PT Intermediate Goals Time Frame: Mar 31, 2016 Transfers (B,C,W/C) (FIM): 5 Sit to Lying (QC): 4 Lying-Sitting on Side/Bed(QC): 4 Sit to Stand (QC): 4 Rollin Roll Left to Right (QC): 4 Chair/Ama-aj-Awivb Xfer(QC): 4 Car Transfer (QC): 4 Gait (FIM): 1 Distance: 20' Walk 10 feet (QC): 4 Walk 10ft-Uneven Surface(QC): 4 Walk 50ft with 2 Turns (QC): 88 Walk 150 ft (QC): 88 Gait Level of Assist: 5 Gait Assistive Device: FWW Wheelchair (FIM): 6 Distance: 150' Wheelchair Level of Assist: 6 Wheel 50 feet with 2 turns (QC: 6 Stairs (FIM): 2 # of Steps: 4 1 Step (curb) (QC): 4 4 Steps (QC): 4 12 Steps (QC): 88 Stairs Level Of Assist: 4 Picking up an Object (QC): 88 PT Plan Treatment/Plan Treatment Plan: Continue Plan of Care Treatment Plan: Bed Mobility, Education, Functional Activity Mahad, Functional Strength, Group Therapy, Gait, Safety, Therapeutic Exercise, Transfers Treatment Duration: Mar 31, 2016 Visits Per Week: 10-11 Minutes/Day (M-F): 60-90 Minutes/Day (Sat/[place]): 15-30 Time/GCodes Time In: 1125 Time Out: 1155 Total Billed Treatment Time: 30 Total Billed Treatment 1, FA 15min, [facility] 15min DANDY TERRY Mar 19, 2016 12:00
[2016-03-19] MEDS: oxyCODONE/APAP 5/325MG (PERCOCET 5) TABLET PO PRN ×2 (12:16→16:26)
[2016-03-19 18:15] VITALS: BP 92/66
[2016-03-19] MEDS: ENOXAPARIN 40 MG/0.4 ML (LOVENOX) SYR SC SCH (20:17)
[2016-03-19] MEDS: inSUlin DETERMIR 1 UNIT/0.01 ML (LEVEMIR) CHARGE PER UNIT SQ SCH (20:17)
[2016-03-19] MEDS: ATORVASTATIN 40 MG (LIPITOR) TABLET PO SCH (20:17)
[2016-03-20] MEDS: oxyCODONE/APAP 5/325MG (PERCOCET 5) TABLET PO PRN ×2 (00:22→21:35)
[2016-03-20 06:00] VITALS: BP 96/61
[2016-03-20] MEDS: inSUlin (REGULAR) HUMAN 1 UNIT/0.01 ML (CHARGE PER UNIT) SC SCH ×4 (06:00→22:13)
[2016-03-20] MEDS: AUGMENTIN 875 MG TAB (AMOXICILLIN/CLAVULANATE) PO SCH ×2 (06:17→16:16)
[2016-03-20] MEDS: VANCOMYCIN ORAL 250 MG/5 ML 60 ML PO SCH ×6 (06:18→18:30)
[2016-03-20 08:41] VITALS: BP 108/73
[2016-03-20] MEDS: GABAPENTIN 600 MG (NEURONTIN) TAB PO SCH ×3 (08:45→20:07)
[2016-03-20] MEDS: DULoxetine 30 MG (CYMBALTA) CAP PO SCH (08:45)
[2016-03-20] MEDS: DILTIAZEM 30 MG (CARDIZEM) TAB PO SCH ×3 (08:45→20:06)
[2016-03-20 18:00] VITALS: BP 127/81
[2016-03-20] MEDS: ENOXAPARIN 40 MG/0.4 ML (LOVENOX) SYR SC SCH (20:06)
[2016-03-20] MEDS: ATORVASTATIN 40 MG (LIPITOR) TABLET PO SCH (20:06)
[2016-03-20] MEDS: inSUlin DETERMIR 1 UNIT/0.01 ML (LEVEMIR) CHARGE PER UNIT SQ SCH (20:07)
[2016-03-20] MEDS: ALPRAZolam 0.5 MG (XANAX) TAB PO PRN (21:35)
[2016-03-21] MEDS: VANCOMYCIN ORAL 250 MG/5 ML 60 ML PO SCH ×10 (00:03→23:21)
[2016-03-21 05:25] VITALS: BP 99/71
[2016-03-21] MEDS: inSUlin (REGULAR) HUMAN 1 UNIT/0.01 ML (CHARGE PER UNIT) SC SCH ×4 (06:00→20:51)
--- NOTE | 2016-03-21 08:36 | Cardiology Progress Note ---
Subjective Subjective/Events-last exam Patient in bed. Complaining of some claudication pain to RLE. Denies any CP or dyspnea. Review of Systems General: No Night Sweats, No Fatigue, No Malaise HEENT: No Visual Changes, No Dysphasia, No Sore Throat Pulmonary: No Dyspnea, No Cough Cardiovascular: No: Chest Pain, Orthopnea, Palpitations Gastrointestinal: No: Abdominal Pain, Nausea, Vomiting Genitourinary: No Dysuria, No Frequency Musculoskeletal: No: neck pain, shoulder pain Neurological: : WeaknessNo: Change in speech, Confusion, Numbness Objective-Cardiology Exam Last Set of Vital Signs Vital Signs 03/21/16 05:25 Temp 96.4 Pulse 89 Resp 20 B/P 99/71 Pulse Ox 100 O2 Delivery Room Air Capillary Refill : Less Than 3 Seconds I&O Intake and Output 03/21/16 00:00 Intake Total 1680 ml Balance 1680 ml Intake Oral 1680 ml # Voids 8 # Bowel Movements 2 General: Alert, Oriented X3, Cooperative, No Acute Distress HEENT: Atraumatic Neck: Supple, No JVD, No Thyromegaly Lungs: Clear to Auscultation, Normal Air Movement Heart: Regular Rate, Normal S1, Normal S2, No Murmurs Abdomen: Normal Bowel Sounds, Soft, No Tenderness Extremities: No Clubbing, No Cyanosis Skin: No Rashes, No Breakdown, No Significant Lesion, Other (L anterior Knee - 2.0 x 2.4 x 0.1 cm; 100% scab. Sacral area - cluster of 3 midline wounds, largest - 0.7 x 1.1 x 0.2 cm; base 100% biofilm.) Neuro: Normal Speech, Strength at 5/5 X4 Ext, Other (mild weakness RLE) Psych/Mental Status: Mental Status NL A/P-Cardiology Admission Diagnosis Hypotension Paroxysmal atrial fibrillation Hyperlipidemia Peripheral arterial disease Diabetes mellitus Assessment/Plan Hypotension, probably secondary to hypovolemia in addition to her aggressive antihypertensive medications. Stay off XOCHITL inhibitor, continue on Cardizem and monitor blood pressure. Paroxysmal atrial fibrillation, reporting episode of atrial fibrillation during her hospital stay in January at [facility]. She is not on oral anticoagulation, no signs of bleeding. Probably transient episode of atrial fibrillation. She denied any previous history prior to her surgery. No syncope was reported. Currently in sinus rhythm. Continue to monitor C. difficile colitis, still having diarrhea, had low-grade fever, treated by primary care physician, I will evaluate CBC and metabolic profile UTI- management by medical services History of hypertension, status post hypotension, blood pressure is better. Continue to monitor Peripheral arterial disease, extensive, continue to monitor closely. Patient complaining of RLE claudication pain. 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 Mild hypokalemia, monitor electrolytes Anemia, monitor H&H Hyperlipidemia, maintained on Lipitor. Monitor lipids Diabetes mellitus, followed and managed by primary care physician Tobaccoism, educated in length on smoking cessation Depression, anxiety. Managed by primary care physician Debility, receiving physical therapy Clinical Quality Measures DVT/VTE Risk/Contraindication: Risk Factor Score Per Nursin RFS Level Per Nursing on Admit: 4+=Very High LINH WALLACE Mar 21, 2016 08:36
--- NOTE | 2016-03-21 08:38 | Progress Note (SOAP) ---
Subjective Subjective/Events-last exam patient feeling better today. Stools are better. Patient states she is improving with physical therapy and occupational therapy Objective Exam Vital Signs Date Time Temp Pulse Resp B/P Pulse Ox O2 Delivery O2 Flow Rate FiO2 03/21/16 05:25 96.4 89 20 99/71 100 Room Air 03/20/16 18:00 96.0 90 20 127/81 99 Room Air 03/20/16 08:41 96.8 77 20 108/73 99 Room Air I & O 03/21/16 07:00 Intake Total 2480 ml Balance 2480 ml Capillary Refill : Less Than 3 Seconds General Appearance: No Apparent Distress WD/WN HEENT: Normal ENT Inspection Neck: Full Range of Motion Normal Inspection Cardiovascular: Regular Rate, Rhythm Results Lab Laboratory Tests 03/20/16 10:57: Glucometer 175H 03/20/16 16:32: Glucometer 196H 03/20/16 21:52: Glucometer 210H 03/21/16 05:50: Glucometer 136H Microbiology 03/09/16 C. difficile GDH Antigen & Toxins - Final, Complete 03/17/16 Urine Culture - Final, Complete Klebsiella Pneumoniae Assessment/Plan Assessment/Plan Assess & Plan/Chief Complaint left below the knee amputation. Diabetes. Peripheral vascular disease. Depression history. Hypertension history. . 03/11/16 left below knee amputation. Diabetes. Peripheral vascular disease. History of hypertension. C. difficile. Hypotensive. Health lisinopril. . Left knee below amputation. Diabetes. Peripheral vascular disease. History of atrial fibrillation. Patient in sinus rhythm. Hypotension. C. difficile. Diarrhea improving. . 03/15/16. Left below the knee amputation. Diabetes. Peripheral vascular disease. Depression history. Atrial fib. Blood pressure goodt and heart rate within normal limits. . 03/16/16. Left below the knee amputation. Peripheral vascular disease. Diabetes. C. difficile. History of atrial fibrillation. Diarrhea better. Potassium 3.3 Will replace. Patient has renal insufficiency. . 03/17/16. Left below the knee amputation. Diabetes. Peripheral vascular disease. Depression history. Patient doing better. Patient happy. Patient improving. . 03/18/16. Left below the knee amputation. Diabetes. 4 vascular disease. Depression history. UA shows infection. C. difficile. To put on antibiotics only for 2 days when get sensitivity. . 03/21/16. Left below the knee amputation. C. difficile. Stools are better. Diabetes. Peripheral vascular disease. To check UA tomorrow Diagnosis/Problems: Clinical Quality Measures DVT/VTE Risk/Contraindication: Risk Factor Score Per Nursin RFS Level Per Nursing on Admit: 4+=Very High URSULA RENEE DO Mar 21, 2016 08:38
[2016-03-21 09:10] VITALS: BP 126/80
[2016-03-21] MEDS: GABAPENTIN 600 MG (NEURONTIN) TAB PO SCH ×3 (09:12→20:55)
[2016-03-21] MEDS: DULoxetine 30 MG (CYMBALTA) CAP PO SCH (09:13)
[2016-03-21] MEDS: DILTIAZEM 30 MG (CARDIZEM) TAB PO SCH ×3 (09:13→20:55)
--- NOTE | 2016-03-21 09:13 | Physical Therapy Daily Note ---
PT Daily Note-Current Subjective Pt. agrees to Rx. Pt. already up in w/c, hair washed and clothing donned. Pt. asking if there is any way she can have her clothes washed here as she has been trying to wash them out by hand in her room and "it aint cuttin it" "they smell ". Pt. states she is feeling stronger overall. State she and her are pleased to find that he may be able to be employed to be her caregiver. Pain Numeric Pain Scale: 0-No Pain Appearance up, dressed, clean, at sink on own washing hands when this CANAL STRUCTURE OPERATOR arrived, smiling , more positive. Mental Status Patient Orientation: Normal For Age Transfers Functional [place] Measure 0=Not Assessed/NA 4=Minimal Assistance 1=Total Assistance 5=Supervision or Setup 2=Maximal Assistance 6=Modified [place] 3=Moderate Assistance 7=Complete IndependenceIRFPAI Quality Coding Scale 6 Independent with activity with or without an assistive device 5 Patient requires set up or clean up by helper. Patient completes activity by themselves 4 Supervision or touching assist (CGA). [place] provide cues , steadying assist 3 The helper provides less than half the effort to complete the activity 2 The helper provides more than half the effort to complete the activity 1 Dependent. The helper does all the effort to complete an activity 7 Patient refused to complete or attempt activity 9 The patient did not perform the activity before the current illness or injury 88 Not attempted due to Medical conditions or safety concerns Transfers (B, C, W/C) (FIM): 5 Scootin Rollin Supine to/from Sit: 6 Sit to/from Stand: 5 Bed to/from Chair: 5 SPTAS now SBA, pt. even hopping 2-3 xs to TRFs bed to w/c and back etc, stronger , increased funct mob Gait Training Gait (FIM): 1 Distance (FIM): 1=up to 49 ft (5ftx2) Gait Level of Assist: 4 Gait Persons Needed: 1 Gait Assistive Device: FWW 3-4 mini hops otherwise "shimmy scoots" with right foot bed to w/c etc Wheelchair Training Does the Pt Use a Wheelchair?: Yes Wheelchair (FIM): 2 Wheelchair Distance: 3=342-77 ft Wheelchair Level of Assist: 2 Type of Wheelchair: Manual pt. all about room x3, into bathroom , several turns in tight spaces and good control. Exercises Supine Ex: Bridging, Ankle pumps, Quad Set, Rolling, Glut sets, Heel Slides, Short Arc Quads, Scooting, Straight leg raise, Hip abd/add Supine Reps: 15 Seated Therapy Exercises: Ankle pumps, Sit to stand, Hip flexion, Hip abd/add Seated Reps: 15 Treatments standing x 4 45 sec each with pregait acitivities, wt shift etc Assessment Current Status: Good Progress progress in all phases PT Short Term Goals Short Term Goals Time Frame: Mar 17, 2016 Gait (FIM): 1 Gait Distance Comment: 10' Gait Level of Assist: 4 Gait Assistive Device: FWW Wheelchair Distance: 150' PT Hand Mexican Food Maker Goals Hand Mexican Food Maker Goals PT Hand Mexican Food Maker Goals Time Frame: Mar 31, 2016 Transfers (B,C,W/C) (FIM): 5 Sit to Lying (QC): 4 Lying-Sitting on Side/Bed(QC): 4 Sit to Stand (QC): 4 Rollin Roll Left to Right (QC): 4 Chair/Jbm-vu-Hcvft Xfer(QC): 4 Car Transfer (QC): 4 Gait (FIM): 1 Distance: 20' Walk 10 feet (QC): 4 Walk 10ft-Uneven Surface(QC): 4 Walk 50ft with 2 Turns (QC): 88 Walk 150 ft (QC): 88 Gait Level of Assist: 5 Gait Assistive Device: FWW Wheelchair (FIM): 6 Distance: 150' Wheelchair Level of Assist: 6 Wheel 50 feet with 2 turns (QC: 6 Stairs (FIM): 2 # of Steps: 4 1 Step (curb) (QC): 4 4 Steps (QC): 4 12 Steps (QC): 88 Stairs Level Of Assist: 4 Picking up an Object (QC): 88 PT Plan Problem List pt. still in isolation and unable to come out of the room, when she can it will help pt. frame of mind and opportunities to do more therapies Treatment/Plan Treatment Plan: Continue Plan of Care Treatment Plan: Bed Mobility, Education, Functional Activity Mahad, Functional Strength, Group Therapy, Gait, Safety, Therapeutic Exercise, Transfers Treatment Duration: Mar 31, 2016 Visits Per Week: 10-11 Minutes/Day (M-F): 60-90 Minutes/Day (Sat/[place]): 15-30 Safety Risks/Education Patient Education: Gait Training, Transfer Techniques, Issued Written HEP, Correct Positioning, W/C Management, Disease Process, Safety Issues Teaching Recipient: Patient Teaching Methods: Demonstration, Discussion Response to Teaching: Verbalize Understanding, Return Demonstration, Reinforcement Needed Time/GCodes Time In: 715 Time Out: 815 Total Billed Treatment Time: 60 Total Billed Treatment 1,EX30m,FA30m G Codes Necessary: MARINO Roca CANAL STRUCTURE OPERATOR Mar 21, 2016 09:13
--- NOTE | 2016-03-21 10:58 | Cardiology Progress Note ---
Subjective Subjective/Events-last exam patient is laying down in bed, feeling better, denied any chest pain or shortness of breath Review of Systems General: No Chills, No Night Sweats, No Fatigue, No Malaise, No Appetite, No Other HEENT: No Head Aches, No Visual Changes, No Eye Pain, No Ear Pain, No Dysphasia , No Sinus Congestion, No Post Nasal Drip, No Sore Throat, No Other Pulmonary: No Dyspnea, No Cough, No Pleuritic Chest Pain, No Other Cardiovascular: No: Chest Pain, Edema, Lt Headedness, Orthopnea, Other, Palpitations, Paroxysmal Noc. Dyspnea Objective-Cardiology Exam Last Set of Vital Signs Vital Signs 03/21/16 03/21/16 05:25 09:10 Temp 96.4 Pulse 88 Resp 20 B/P 126/80 Pulse Ox 100 O2 Delivery Room Air Capillary Refill : Less Than 3 Seconds I&O Intake and Output 03/21/16 00:00 Intake Total 1680 ml Balance 1680 ml Intake Oral 1680 ml # Voids 8 # Bowel Movements 2 General: Alert, Oriented X3, Cooperative, No Acute Distress HEENT: Atraumatic Neck: Supple, No JVD, No Thyromegaly Lungs: Clear to Auscultation, Normal Air Movement Heart: Regular Rate, Normal S1, Normal S2, No Murmurs Abdomen: Normal Bowel Sounds, Soft, No Tenderness Extremities: No Clubbing, No Cyanosis Skin: No Rashes, No Breakdown, No Significant Lesion, Other (L anterior Knee - 2.0 x 2.4 x 0.1 cm; 100% scab. Sacral area - cluster of 3 midline wounds, largest - 0.7 x 1.1 x 0.2 cm; base 100% biofilm.) Neuro: Normal Speech, Strength at 5/5 X4 Ext, Other (mild weakness RLE) Psych/Mental Status: Mental Status NL Results Lab Laboratory Tests Test 03/20/16 16:32 03/20/16 21:52 03/21/16 05:50 Range/Units Glucometer 196 H 210 H 136 H 70-110 MG/DL A/P-Cardiology Admission Diagnosis Hypotension Paroxysmal atrial fibrillation Hyperlipidemia Peripheral arterial disease Diabetes mellitus Assessment/Plan Hypotension, probably secondary to hypovolemia in addition to her aggressive antihypertensive medications. Stay off XOCHITL inhibitor, continue on Cardizem and monitor blood pressure. Paroxysmal atrial fibrillation, reporting episode of atrial [place] [facility] [place] is not on oral anticoagulation, no signs of bleeding. Probably transient episode of atrial fibrillation. She denied any previous history prior to her surgery. No syncope was reported. Currently in sinus rhythm. Continue to monitor C. difficile colitis, still having diarrhea, had low-grade fever, treated by primary care physician, I will evaluate CBC and metabolic profile UTI- management by medical services History of hypertension, status post hypotension, blood pressure is better. Continue to monitor Peripheral arterial disease, extensive, continue to monitor closely. Patient complaining of RLE claudication pain. 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 Mild hypokalemia, monitor electrolytes Anemia, monitor H&H Hyperlipidemia, maintained on Lipitor. Monitor lipids Diabetes mellitus, followed and managed by primary care physician Tobaccoism, educated in length on smoking cessation Depression, anxiety. Managed by primary care physician Debility, receiving physical therapy Clinical Quality Measures DVT/VTE Risk/Contraindication: Risk Factor Score Per Nursin RFS Level Per Nursing on Admit: 4+=Very High MILADY SHANNON MD Mar 21, 2016 10:57
--- NOTE | 2016-03-21 11:53 | Occupational Ther Daily Note ---
OT Current Status-Daily Note Subjective Pt sitting in w/c, agrees to treatment. Pt reports generalized "soreness", but no pain Mental Status/Objective Functional [place] Measure 0=Not Assessed/NA 4=Minimal Assistance 1=Total Assistance 5=Supervision or Setup 2=Maximal Assistance 6=Modified [place] 3=Moderate Assistance 7=Complete [place] ADL-Treatment Pt states she has already dressed, washed hair, and completed grooming at sink this morning prior to therapy. Pt transferred w/c to [facility] x2 during session with SBA. Pt able to pull pants down and complete toileting hygiene both times, but requires assist for pant hike on left side secondary to decreased standing balance when taking left hand off FWW. Washes hands with washcloth after toileting. Pt maneuvers w/c in room without assistance and puts clean clothes away in closet at w/c level without assistance. Pt donned sweater with modified independence and later in session doffed sweater without assistance. Functional [place] Measure 0=Not Assessed/NA 4=Minimal Assistance 1=Total Assistance 5=Supervision or Setup 2=Maximal Assistance 6=Modified [place] 3=Moderate Assistance 7=Complete IndependenceIRFPAI Quality Coding Scale 6 Independent with activity with or without an assistive device 5 Patient requires set up or clean up by helper. Patient completes activity by themselves 4 Supervision or touching assist (CGA). [place] provide cues , steadying assist 3 The helper provides less than half the effort to complete the activity 2 The helper provides more than half the effort to complete the activity 1 Dependent. The helper does all the effort to complete an activity 7 Patient refused to complete or attempt activity 9 The patient did not perform the activity before the current illness or injury 88 Not attempted due to Medical conditions or safety concerns Toileting (FIM): 3 Toilet/Commode Transfer (FIM): 5 Other Treatment Pt performed bilateral UE exercises to promote increase strength needed for ADLs and transfers. Pt performed shoulder flexion, abduction, biceps curls, and triceps extension exercises x20 reps with moderate resistance theraband. Pt fatigues with exercises and requires occasional rest breaks throughout. Arm bike x10 minutes to increase overall strength and activity tolerance. Pt completed task with mild resistance and steady pace. No rest breaks needed during activity. Pt completed dowel exercises x20 reps for forward press, shoulder forward flexion, and overhead press. Pt performed transfers w/c<-> EOB x5 reps going to left and right to increase safety during functional transfers. Pt is able to complete transfers with CGA to SBA using FWW. Pt is able to take small hop during some transfers. Pt sitting EOB with needs met after session. Continue POC OT Short Term Goals Short Term Goals Time Frame: Mar 17, 2016 Bathing(FIM): 4 Lower Body Dressing(FIM): 3 Toileting(FIM): 3 Toilet/Commode Transfer(FIM): 4 Shower Transfer(FIM): 3 Additional Short Term Goals: 1-Demonstrate ADL Tasks, 2-Verbalize Understanding , 3-ImproveStrength/Mahad 1=Demonstrate adherence to instructed precautions during ADL tasks. 2=Patient will verbalize/demonstrate understanding of assistive devices/ modifications for ADL. 3=Patient will improve strength/tolerance for activity to enable patient to perform ADL's. OT Tile Picker Goals Correction Goals Time Frame: Mar 31, 2016 Eating (FIM): 6 Eating (QC): 6 Oral Hygiene (QC): 6 Grooming(FIM): 6 Bathing(FIM): 5 Shower/Bathe Self (QC): 4 Upper Body Dressing(FIM): 6 Upper Body Dressing (QC): 6 Lower Body Dressing(FIM): 5 Lower Body Dressing (QC): 4 On/Off Footwear (QC): 5 Toileting(FIM): 5 Toileting Hygiene (QC): 4 Toilet/Commode Transfer(FIM): 5 Toilet/Commode Transfer (QC): 4 Shower Transfer(FIM): 4 Additional Goals: 1-Demonstrate ADL Tasks, 2-Verbalize Understanding, 3- ImproveStrength/Mahad 1=Demonstrate adherence to instructed precautions during ADL tasks. 2=Patient will verbalize/demonstrate understanding of assistive devices/ modifications for ADL. 3=Patient will improve strength/tolerance for activity to enable patient to perform ADL's. OT Education/Plan Problem List/Assessment Pt demonstrates decreased mobility, strength, activity tolerance, and ADL performance. Pt to benefit from skilled OT intervention for ADL training, transfers, strengthening, adaptive equipment training as needed, and home safety education to maximize level of function and allow safe discharge. Discharge Recommendations Plan/Recommendations: Continue POC Treatment Plan/Plan of Care Patient would benefit from OT for education, treatment and training to promote independence in ADL's, mobility, safety and/or upper extremity function for ADL' s. Plan of Care: ADL Retraining, Functional Mobility, Group Exercise/Act as Ind, UE Funct Exercise/Act Treatment Duration: Mar 31, 2016 Visits Per Week: 10-11 Minutes/Day (M-F): 60-90 Minutes/Day (Sat/[place]): PRN Agreement: Yes Rehab Potential: Fair Time/GCodes Start Time: 09:00 Stop Time: 10:30 Total Time Billed (hr/min): 90 Billed Treatment Time 1 visit, ADLx2(25minutes), EXx3(45minutes), FA(20minutes) OLIVIA NELSON OT Mar 21, 2016 11:52
--- NOTE | 2016-03-21 13:15 | Physical Therapy Daily Note ---
PT Daily Note-Current Subjective Agrees to Rx. Pain Numeric Pain Scale: 0-No Pain Transfers Functional [place] Measure 0=Not Assessed/NA 4=Minimal Assistance 1=Total Assistance 5=Supervision or Setup 2=Maximal Assistance 6=Modified [place] 3=Moderate Assistance 7=Complete IndependenceIRFPAI Quality Coding Scale 6 Independent with activity with or without an assistive device 5 Patient requires set up or clean up by helper. Patient completes activity by themselves 4 Supervision or touching assist (CGA). [place] provide cues , steadying assist 3 The helper provides less than half the effort to complete the activity 2 The helper provides more than half the effort to complete the activity 1 Dependent. The helper does all the effort to complete an activity 7 Patient refused to complete or attempt activity 9 The patient did not perform the activity before the current illness or injury 88 Not attempted due to Medical conditions or safety concerns sup to sit to sup all MOD I, sit to stand all min to CGA Gait Training Gait Assistive Device: FWW pt. took 4 hops forward, 4 back x 2, SPTS toward left improved Exercises Supine Ex: Bridging, Ankle pumps, Quad Set, Rolling, Glut sets, Lower trunk rotation, Heel Slides, Knee to chest, Short Arc Quads, Scooting, Straight leg raise, Hip abd/add Supine Reps: 12 Assessment Current Status: Good Progress increased strength and funct mob PT Short Term Goals Short Term Goals Time Frame: Mar 17, 2016 Gait (FIM): 1 Gait Distance Comment: 10' Gait Level of Assist: 4 Gait Assistive Device: FWW Wheelchair Distance: 150' PT Halfway Goals Driver/Sales Workers Goals PT Halfway Goals Time Frame: Mar 31, 2016 Transfers (B,C,W/C) (FIM): 5 Sit to Lying (QC): 4 Lying-Sitting on Side/Bed(QC): 4 Sit to Stand (QC): 4 Rollin Roll Left to Right (QC): 4 Chair/Eru-lc-Eyqfi Xfer(QC): 4 Car Transfer (QC): 4 Gait (FIM): 1 Distance: 20' Walk 10 feet (QC): 4 Walk 10ft-Uneven Surface(QC): 4 Walk 50ft with 2 Turns (QC): 88 Walk 150 ft (QC): 88 Gait Level of Assist: 5 Gait Assistive Device: FWW Wheelchair (FIM): 6 Distance: 150' Wheelchair Level of Assist: 6 Wheel 50 feet with 2 turns (QC: 6 Stairs (FIM): 2 # of Steps: 4 1 Step (curb) (QC): 4 4 Steps (QC): 4 12 Steps (QC): 88 Stairs Level Of Assist: 4 Picking up an Object (QC): 88 PT Plan Treatment/Plan Treatment Plan: Continue Plan of Care Treatment Plan: Bed Mobility, Education, Functional Activity Mahad, Functional Strength, Group Therapy, Gait, Safety, Therapeutic Exercise, Transfers Treatment Duration: Mar 31, 2016 Visits Per Week: 10-11 Minutes/Day (M-F): 60-90 Minutes/Day (Sat/[place]): 15-30 Safety Risks/Education Patient Education: Transfer Techniques, Correct Positioning, Safety Issues Teaching Recipient: Patient Teaching Methods: Demonstration, Discussion Response to Teaching: Verbalize Understanding, Return Demonstration, Reinforcement Needed Time/GCodes Time In: 1245 Time Out: 1315 Total Billed Treatment Time: 30 Total Billed Treatment 1,FA15m,EX15m G Codes Necessary: MARINO Roca COFFEE SUPERVISOR Mar 21, 2016 13:15
[2016-03-21 14:05] VITALS: BP 107/73
[2016-03-21 18:06] VITALS: BP 112/76
--- NOTE | 2016-03-21 20:02 | PM & R (SOAP) Progress Note ---
Subjective Subjective/Events-last exam Patient was seen in her room this evening Patient sba for transfers Bowel movements more formed Objective Exam Last Set of Vital Signs Vital Signs Date Time Temp Pulse Resp B/P Pulse Ox O2 Delivery O2 Flow Rate FiO2 03/21/16 18:06 98.2 98 16 112/76 99 Room Air Capillary Refill : Less Than 3 Seconds I&O Intake and Output 03/21/16 00:00 Intake Total 1680 ml Balance 1680 ml Intake Oral 1680 ml # Voids 8 # Bowel Movements 2 General: Alert, Oriented X3, Cooperative, No Acute Distress HEENT: Atraumatic Neck: Supple, No JVD, No Thyromegaly Lungs: Clear to Auscultation, Normal Air Movement Heart: Regular Rate, Normal S1, Normal S2, No Murmurs Abdomen: Normal Bowel Sounds, Soft, No Tenderness Extremities: No Clubbing, No Cyanosis Skin: No Rashes, No Breakdown, No Significant Lesion, Other (L anterior Knee - 2.0 x 2.4 x 0.1 cm; 100% scab. Sacral area - cluster of 3 midline wounds, largest - 0.7 x 1.1 x 0.2 cm; base 100% biofilm.) Neuro: Normal Speech, Strength at 5/5 X4 Ext, Other (mild weakness RLE) Psych/Mental Status: Mental Status NL Results Lab Laboratory Tests 03/18/16 20:33: Glucometer 177H 03/19/16 05:58: Glucometer 137H 03/19/16 11:13: Glucometer 243H 03/19/16 15:49: Glucometer 125H 03/19/16 20:59: Glucometer 187H 03/20/16 05:11: Glucometer 189H 03/20/16 10:57: Glucometer 175H 03/20/16 16:32: Glucometer 196H 03/20/16 21:52: Glucometer 210H 03/21/16 05:50: Glucometer 136H 03/21/16 11:04: Glucometer 168H 03/21/16 16:01: Glucometer 196H Microbiology 03/09/16 C. difficile GDH Antigen & Toxins - Final, Complete 03/17/16 Urine Culture - Final, Complete Klebsiella Pneumoniae Assessment/Plan Assessment Left BKA 02-01-16 OSH for gangrenous left foot Postop C DIF bowel colitis associated with sepsis treated at OSH-now on Vanco for ongoing treatment Mild Hypokalemia Mild postop Anemia IDDM controlled HTN with hx of afib now sinus with hypotension depression on meds Tobaccoism declines Smoking cessation Trace edema rt ankle Uncertain if patient would tolerate Freddy hose-Lasix prn ordered-one dose ordered with improvement UTI with fever now afebrile on Vanco Check sensitivity Plan Continue PT/OT DR Barrios to see re cardiac meds with echo ordered-done appreciate his consult and f/u recheck labs-done Lasix times one done-edema improved Completed course of Flagyl for Cdif now on course of Vanco with meds adjusted to promote formed stools Team Conference held 03-16-16-see report for full functional update and POC and ELOS F/U re sensitivity of Gram Negative rods. Next Team Conference 03-23-[address] sharp notes and orders IRMA ESPINOZA MD Mar 21, 2016 20:02
[2016-03-21] MEDS: ENOXAPARIN 40 MG/0.4 ML (LOVENOX) SYR SC SCH (20:55)
[2016-03-21] MEDS: ATORVASTATIN 40 MG (LIPITOR) TABLET PO SCH (20:55)
[2016-03-21] MEDS: oxyCODONE/APAP 5/325MG (PERCOCET 5) TABLET PO PRN (20:56)
[2016-03-21] MEDS: inSUlin DETERMIR 1 UNIT/0.01 ML (LEVEMIR) CHARGE PER UNIT SQ SCH (20:56)
[2016-03-22] MEDS: ALPRAZolam 0.5 MG (XANAX) TAB PO PRN ×2 (03:20→22:56)
[2016-03-22 05:13] VITALS: BP 119/79
[2016-03-22] MEDS: inSUlin (REGULAR) HUMAN 1 UNIT/0.01 ML (CHARGE PER UNIT) SC SCH ×4 (05:29→20:11)
[2016-03-22] MEDS: VANCOMYCIN ORAL 250 MG/5 ML 60 ML PO SCH ×8 (06:11→23:12)
[2016-03-22 06:15] LABS: BILIRUBIN,URINE NEGATIVE (NEGATIVE); KETONES,URINE NEGATIVE (NEGATIVE); LEUKOCYTE ESTERASE ,URINE 1+ (NEGATIVE); NITRITE,URINE NEGATIVE (NEGATIVE); PH,URINE 6.5 (5-9); PROTEIN,URINE 1+ (NEGATIVE); UROBILINOGEN,URINE NORMAL (NORMAL)
[2016-03-22 06:23] LABS: CALCIUM 9.1 MG/DL (8.5-10.1); CREATININE SERUM 1.31 MG/DL (0.60-1.30)
--- NOTE | 2016-03-22 08:01 | Physical Therapy Daily Note ---
PT Daily Note-Current Subjective Pt. states she slept well and is ready to work. Pt. has no c/o pain. 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 right foot and heel inspected today. some callouses noted ball of foot but no open or pink areas. sensation decreased Mental Status Patient Orientation: Normal For Age Transfers Functional [place] Measure 0=Not Assessed/NA 4=Minimal Assistance 1=Total Assistance 5=Supervision or Setup 2=Maximal Assistance 6=Modified [place] 3=Moderate Assistance 7=Complete IndependenceIRFPAI Quality Coding Scale 6 Independent with activity with or without an assistive device 5 Patient requires set up or clean up by helper. Patient completes activity by themselves 4 Supervision or touching assist (CGA). [place] provide cues , steadying assist 3 The helper provides less than half the effort to complete the activity 2 The helper provides more than half the effort to complete the activity 1 Dependent. The helper does all the effort to complete an activity 7 Patient refused to complete or attempt activity 9 The patient did not perform the activity before the current illness or injury 88 Not attempted due to Medical conditions or safety concerns Transfers (B, C, W/C) (FIM): 4 Scootin Rollin Supine to/from Sit: 6 Sit to/from Stand: 4 Bed to/from Chair: 4 with all levels higher pt. has more success. sit to stands 1st attempt in AM seems more challenging. CGA to min required Gait Training Does the Patient Walk?: Yes Gait (FIM): 1 Distance (FIM): 1=up to 49 ft (5ftx4) Gait Level of Assist: 4 Gait Persons Needed: 1 Gait Assistive Device: FWW w/c to follow, pt. with shoe on which she says sticks to floor during gait (hops ) satin tape placed on toe of shoe for easier slide/step Wheelchair Training Does the Pt Use a Wheelchair?: Yes Wheelchair (FIM): 5 Wheelchair Distance: [phone] ft Wheelchair Level of Assist: 5 Type of Wheelchair: Manual about room in tight spaces with occas guidance only, slow Exercises Supine Ex: Bridging, Ankle pumps (HC stretches as well), Quad Set, Rolling, Glut sets, Heel Slides, Knee to chest, Short Arc Quads, Scooting, Straight leg raise, Hip abd/add Supine Reps: 15 sidelying hip abd and hip ext x 12 Assessment Current Status: Good Progress pt. taking better gait hops/steps , stronger with more confidence PT Short Term Goals Short Term Goals Time Frame: Mar 17, 2016 Gait (FIM): 1 Gait Distance Comment: 10' Gait Level of Assist: 4 Gait Assistive Device: FWW Wheelchair Distance: 150' PT Custodial Goals Custodial Goals PT Custodial Goals Time Frame: Mar 31, 2016 Transfers (B,C,W/C) (FIM): 5 Sit to Lying (QC): 4 Lying-Sitting on Side/Bed(QC): 4 Sit to Stand (QC): 4 Rollin Roll Left to Right (QC): 4 Chair/Rvz-zn-Sghpd Xfer(QC): 4 Car Transfer (QC): 4 Gait (FIM): 1 Distance: 20' Walk 10 feet (QC): 4 Walk 10ft-Uneven Surface(QC): 4 Walk 50ft with 2 Turns (QC): 88 Walk 150 ft (QC): 88 Gait Level of Assist: 5 Gait Assistive Device: FWW Wheelchair (FIM): 6 Distance: 150' Wheelchair Level of Assist: 6 Wheel 50 feet with 2 turns (QC: 6 Stairs (FIM): 2 # of Steps: 4 1 Step (curb) (QC): 4 4 Steps (QC): 4 12 Steps (QC): 88 Stairs Level Of Assist: 4 Picking up an Object (QC): 88 PT Plan Treatment/Plan Treatment Plan: Continue Plan of Care Treatment Plan: Bed Mobility, Education, Functional Activity Mahad, Functional Strength, Group Therapy, Gait, Safety, Therapeutic Exercise, Transfers Treatment Duration: Mar 31, 2016 Visits Per Week: 10-11 Minutes/Day (M-F): 60-90 Minutes/Day (Sat/[place]): 15-30 Safety Risks/Education Patient Education: Gait Training, Transfer Techniques, Correct Positioning, W/ C Management, Disease Process, Safety Issues Teaching Recipient: Patient Teaching Methods: Demonstration, Discussion Response to Teaching: Verbalize Understanding, Return Demonstration, Reinforcement Needed Time/GCodes Time In: 700 Time Out: 800 Total Billed Treatment Time: 60 Total Billed Treatment 1,EX15m,GT25m,FA20m G Codes Necessary: No LUEBBER, MARINO A CLINICAL SERVICES SPECIALIST Mar 22, 2016 08:01
[2016-03-22] MEDS: DILTIAZEM 30 MG (CARDIZEM) TAB PO SCH ×3 (08:14→20:10)
[2016-03-22] MEDS: GABAPENTIN 600 MG (NEURONTIN) TAB PO SCH ×3 (08:14→20:10)
[2016-03-22] MEDS: DULoxetine 30 MG (CYMBALTA) CAP PO SCH (08:14)
--- NOTE | 2016-03-22 08:20 | Cardiology Progress Note ---
Subjective Subjective/Events-last exam No new complaint. Denies any CP or dyspnea. Review of Systems General: No Night Sweats, No Fatigue, No Malaise HEENT: No Visual Changes, No Dysphasia, No Sore Throat Pulmonary: No Dyspnea, No Cough Cardiovascular: No: Chest Pain, Palpitations Gastrointestinal: No: Abdominal Pain, Nausea, Vomiting Genitourinary: No Dysuria, No Frequency Musculoskeletal: No: back pain, neck pain Neurological: No: Change in speech, Confusion, Numbness, Weakness Objective-Cardiology Exam Last Set of Vital Signs Vital Signs 03/22/16 05:13 Temp 97.5 Pulse 81 Resp 16 B/P 119/79 Pulse Ox 98 O2 Delivery Room Air Capillary Refill : Less Than 3 Seconds I&O Intake and Output 03/22/16 00:00 Intake Total 1980 ml Balance 1980 ml Intake Oral 1980 ml # Voids 7 # Bowel Movements 2 General: Alert, Oriented X3, Cooperative, No Acute Distress HEENT: Atraumatic Neck: Supple, No JVD, No Thyromegaly Lungs: Clear to Auscultation, Normal Air Movement Heart: Regular Rate, Normal S1, Normal S2, No Murmurs Abdomen: Normal Bowel Sounds, Soft, No Tenderness Extremities: No Clubbing, No Cyanosis Skin: No Rashes, No Breakdown, No Significant Lesion, Other (L anterior Knee - 2.0 x 2.4 x 0.1 cm; 100% scab. Sacral area - cluster of 3 midline wounds, largest - 0.7 x 1.1 x 0.2 cm; base 100% biofilm.) Neuro: Normal Speech, Strength at 5/5 X4 Ext, Other (mild weakness RLE) Psych/Mental Status: Mental Status NL Results Lab Laboratory Tests 03/22/16 05:50 A/P-Cardiology Admission Diagnosis Hypotension Paroxysmal atrial fibrillation Hyperlipidemia Peripheral arterial disease Diabetes mellitus Assessment/Plan Hypotension, probably secondary to hypovolemia in addition to her aggressive antihypertensive medications. Stay off XOCHITL inhibitor, continue on Cardizem and monitor blood pressure. Paroxysmal atrial fibrillation, reporting episode of atrial fibrillation during her hospital stay in January at [facility]. She is not on oral anticoagulation, no signs of bleeding. Probably transient episode of atrial fibrillation. She denied any previous history prior to her surgery. No syncope was reported. Currently in sinus rhythm. Continue to monitor C. difficile colitis, still having diarrhea, had low-grade fever, treated by primary care physician, I will evaluate CBC and metabolic profile UTI- management by medical services History of hypertension, status post hypotension, blood pressure is better. Continue to monitor Peripheral arterial disease, extensive, continue to monitor closely. Patient complaining of RLE claudication pain. 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 Mild hypokalemia, monitor electrolytes Anemia, monitor H&H Hyperlipidemia, maintained on Lipitor. Monitor lipids Diabetes mellitus, followed and managed by primary care physician Tobaccoism, educated in length on smoking cessation Depression, anxiety. Managed by primary care physician Debility, receiving physical therapy Clinical Quality Measures DVT/VTE Risk/Contraindication: Risk Factor Score Per Nursin RFS Level Per Nursing on Admit: 4+=Very High LINH WALLACE Mar 22, 2016 08:20
--- NOTE | 2016-03-22 08:21 | Progress Note (SOAP) ---
Subjective Subjective/Events-last exam patient feeling good today. UA looks better today. Patient voices no complaints. Patient feel she is improving with PT and OT Patient feels heart is doing good. Stools are better to Objective Exam Vital Signs Date Time Temp Pulse Resp B/P Pulse Ox O2 Delivery O2 Flow Rate FiO2 03/22/16 05:13 97.5 81 16 119/79 98 Room Air 03/21/16 18:06 98.2 98 16 112/76 99 Room Air 03/21/16 14:05 107/73 03/21/16 09:10 88 126/80 100 Room Air I & O 03/22/16 07:00 Intake Total 1420 ml Balance 1420 ml Capillary Refill : Less Than 3 Seconds General Appearance: No Apparent Distress WD/WN HEENT: Normal ENT Inspection Neck: Full Range of Motion Normal Inspection Respiratory: No Accessory Muscle Use No Respiratory Distress Results Lab Laboratory Tests 03/22/16 05:50 Laboratory Tests 03/21/16 11:04: Glucometer 168H 03/21/16 16:01: Glucometer 196H 03/21/16 20:46: Glucometer 200H 03/22/16 04:56: Glucometer 170H 03/22/16 05:50: Anion Gap 11, BUN/Creatinine Ratio 18, Blood Urea Nitrogen 24H, Calcium Level 9.1, Carbon Dioxide Level 21, Chloride Level 106, Creatinine 1.31H, Estimat Glomerular Filtration Rate 42, Glucose Level 156H, Potassium Level 4.0, Sodium Level 138 03/22/16 06:00: Urine Bacteria FEWH, Urine Bilirubin NEGATIVE, Urine Casts NONE, Urine Clarity CLEAR, Urine Color YELLOW, Urine Crystals NONE, Urine Culture Indicated YES, Urine Glucose (UA) NEGATIVE, Urine Ketones NEGATIVE, Urine Leukocyte Esterase 1+ H, Urine Mucus NEGATIVE, Urine Nitrite NEGATIVE, Urine Protein 1+H, Urine RBC NONE, Urine RBC (Auto) NEGATIVE, Urine Specific [place] 1.010L, Urine Squamous Epithelial Cells 10-25H, Urine Urobilinogen NORMAL, Urine WBC 10-25H, Urine pH 6.5 Microbiology 03/09/16 C. difficile GDH Antigen & Toxins - Final, Complete 03/17/16 Urine Culture - Final, Complete Klebsiella Pneumoniae Assessment/Plan Assessment/Plan Assess & Plan/Chief Complaint left below the knee amputation. Diabetes. Peripheral vascular disease. Depression history. Hypertension history. . 03/11/16 left below knee amputation. Diabetes. Peripheral vascular disease. History of hypertension. C. difficile. Hypotensive. Health lisinopril. . Left knee below amputation. Diabetes. Peripheral vascular disease. History of atrial fibrillation. Patient in sinus rhythm. Hypotension. C. difficile. Diarrhea improving. . 03/15/16. Left below the knee amputation. Diabetes. Peripheral vascular disease. Depression history. Atrial fib. Blood pressure goodt and heart rate within normal limits. . 03/16/16. Left below the knee amputation. Peripheral vascular disease. Diabetes. C. difficile. History of atrial fibrillation. Diarrhea better. Potassium 3.3 Will replace. Patient has renal insufficiency. . 03/17/16. Left below the knee amputation. Diabetes. Peripheral vascular disease. Depression history. Patient doing better. Patient happy. Patient improving. . 03/18/16. Left below the knee amputation. Diabetes. 4 vascular disease. Depression history. UA shows infection. C. difficile. To put on antibiotics only for 2 days when get sensitivity. . 03/21/16. Left below the knee amputation. C. difficile. Stools are better. Diabetes. Peripheral vascular disease. To check UA tomorrow. . 02/3116. Left below the knee amputation. Diabetes. Peripheral vascular disease. Hypertension history. Patient doing better and happy. infection nitrate negative now done today Diagnosis/Problems: Clinical Quality Measures DVT/VTE Risk/Contraindication: Risk Factor Score Per Nursin RFS Level Per Nursing on Admit: 4+=Very High URSULA RENEE DO Mar 22, 2016 08:21
--- NOTE | 2016-03-22 11:00 | Occupational Ther Daily Note ---
OT Current Status-Daily Note Subjective Pt alert, sitting in w/c. Pt agreed to therapy. No c/o pain at this time. Mental Status/Objective Patient Orientation: Person, Place, Time, Situation Functional [place] Measure 0=Not Assessed/NA 4=Minimal Assistance 1=Total Assistance 5=Supervision or Setup 2=Maximal Assistance 6=Modified [place] 3=Moderate Assistance 7=Complete [place] ADL-Treatment Pt agreed to shower. Pt maneuvered w/c into bathroom and transferred to shower bench using grabbars with CGA. Pt bathed self sitting on shower bench using grabbars and hand held shower. To bathe buttocks, pt leaned side to side on bench. Due to lower height of bench, pt required more assistance to stand using grabbars then was able to transfer to w/c with CGA, dried self off. Sitting at sink, pt was able to complete own grooming. Pt was able to don/doff clothing after set up with CGA when standing to hike pants over hips. Pt demonstrated ability to stand at counter height then reach up above head without LOB then sit down in w/c with SBA. Functional [place] Measure 0=Not Assessed/NA 4=Minimal Assistance 1=Total Assistance 5=Supervision or Setup 2=Maximal Assistance 6=Modified [place] 3=Moderate Assistance 7=Complete IndependenceIRFPAI Quality Coding Scale 6 Independent with activity with or without an assistive device 5 Patient requires set up or clean up by helper. Patient completes activity by themselves 4 Supervision or touching assist (CGA). [place] provide cues , steadying assist 3 The helper provides less than half the effort to complete the activity 2 The helper provides more than half the effort to complete the activity 1 Dependent. The helper does all the effort to complete an activity 7 Patient refused to complete or attempt activity 9 The patient did not perform the activity before the current illness or injury 88 Not attempted due to Medical conditions or safety concerns Grooming (FIM): 6 Oral Hygiene (QC): 6 Bathing (FIM): 5 Upper Body (FIM): 6 Lower Body Dressing (FIM): 4 Shower Transfer(FIM): 3 Other Treatment Pt was able to complete green theraband exercises by self. Tolerated exercises well. After therapy, pt sitting in w/c in room with call light/phone in reach. All needs met in room. OT Short Term Goals Short Term Goals Time Frame: Mar 17, 2016 Bathing(FIM): 4 Lower Body Dressing(FIM): 3 Toileting(FIM): 3 Toilet/Commode Transfer(FIM): 4 Shower Transfer(FIM): 3 Additional Short Term Goals: 1-Demonstrate ADL Tasks, 2-Verbalize Understanding , 3-ImproveStrength/Mahad 1=Demonstrate adherence to instructed precautions during ADL tasks. 2=Patient will verbalize/demonstrate understanding of assistive devices/ modifications for ADL. 3=Patient will improve strength/tolerance for activity to enable patient to perform ADL's. OT Sander Machine Goals Sander Machine Goals Time Frame: Mar 31, 2016 Eating (FIM): 6 Eating (QC): 6 Oral Hygiene (QC): 6 Grooming(FIM): 6 Bathing(FIM): 5 Shower/Bathe Self (QC): 4 Upper Body Dressing(FIM): 6 Upper Body Dressing (QC): 6 Lower Body Dressing(FIM): 5 Lower Body Dressing (QC): 4 On/Off Footwear (QC): 5 Toileting(FIM): 5 Toileting Hygiene (QC): 4 Toilet/Commode Transfer(FIM): 5 Toilet/Commode Transfer (QC): 4 Shower Transfer(FIM): 4 Additional Goals: 1-Demonstrate ADL Tasks, 2-Verbalize Understanding, 3- ImproveStrength/Mahad 1=Demonstrate adherence to instructed precautions during ADL tasks. 2=Patient will verbalize/demonstrate understanding of assistive devices/ modifications for ADL. 3=Patient will improve strength/tolerance for activity to enable patient to perform ADL's. OT Education/Plan Problem List/Assessment Pt demonstrates decreased mobility, strength, activity tolerance, and ADL performance. Pt to benefit from skilled OT intervention for ADL training, transfers, strengthening, adaptive equipment training as needed, and home safety education to maximize level of function and allow safe discharge. Discharge Recommendations Plan/Recommendations: Continue POC Treatment Plan/Plan of Care Patient would benefit from OT for education, treatment and training to promote independence in ADL's, mobility, safety and/or upper extremity function for ADL' s. Plan of Care: ADL Retraining, Functional Mobility, Group Exercise/Act as Ind, UE Funct Exercise/Act Treatment Duration: Mar 31, 2016 Visits Per Week: 10-11 Minutes/Day (M-F): 60-90 Minutes/Day (Sat/[place]): PRN Agreement: Yes Rehab Potential: Fair Time/GCodes Start Time: 09:15 Stop Time: 10:45 Total Time Billed (hr/min): 90 Billed Treatment Time 1 visit-ADL 4 (60 min) FA 1 (15 min) EX 1 (15 min) ANA HWANG Mar 22, 2016 11:00
--- NOTE | 2016-03-22 14:20 | Physical Therapy Daily Note ---
PT Daily Note-Current Subjective Up in w/c. Wants to toilet and get in bed after Rx. c/o pain in residual limb as well as nueropathy in right foot at 5/10. State she hates to take pain meds before therapies are coming b/c she feels she is not on her game. States she will request pain meds after this C WEB DEVELOPER leaves and she has ordered lunch Pain Numeric Pain Scale: 5-Moderate Pain Location: Right Location Body Site: Foot Pain Description: Burning Comment: nueropathy Mental Status Patient Orientation: Normal For Age Transfers Functional [place] Measure 0=Not Assessed/NA 4=Minimal Assistance 1=Total Assistance 5=Supervision or Setup 2=Maximal Assistance 6=Modified [place] 3=Moderate Assistance 7=Complete IndependenceIRFPAI Quality Coding Scale 6 Independent with activity with or without an assistive device 5 Patient requires set up or clean up by helper. Patient completes activity by themselves 4 Supervision or touching assist (CGA). [place] provide cues , steadying assist 3 The helper provides less than half the effort to complete the activity 2 The helper provides more than half the effort to complete the activity 1 Dependent. The helper does all the effort to complete an activity 7 Patient refused to complete or attempt activity 9 The patient did not perform the activity before the current illness or injury 88 Not attempted due to Medical conditions or safety concerns min to CGA for TRFs sit to stand and SPTs BSC to w/c . TRF levels need raised and do assist with pts TRF. pt with some difficulty while in stance managing pants up down etc., holding FWW with one hand and pulling pants up with the other Gait Training Does the Patient Walk?: Yes Gait Assistive Device: FWW small hops for and back with pt. progressing each time she tries this. Wheelchair Training Type of Wheelchair: Manual up ad tani about room in w/c , turns corners a bit short but renegotiates and does well, locks brakes indep etc Exercises Supine Ex: Bridging, Ankle pumps, Quad Set, Rolling, Glut sets, Heel Slides, Knee to chest, Short Arc Quads, Scooting, Straight leg raise, Hip abd/add Supine Reps: 10 Assessment Current Status: Good Progress PT Short Term Goals Short Term Goals Time Frame: Mar 17, 2016 Gait (FIM): 1 Gait Distance Comment: 10' Gait Level of Assist: 4 Gait Assistive Device: FWW Wheelchair Distance: 150' PT Skilled Nursing Goals Skilled Nursing Goals PT Disulfurizer Tender Goals Time Frame: Mar 31, 2016 Transfers (B,C,W/C) (FIM): 5 Sit to Lying (QC): 4 Lying-Sitting on Side/Bed(QC): 4 Sit to Stand (QC): 4 Rollin Roll Left to Right (QC): 4 Chair/Agl-dt-Zyuwb Xfer(QC): 4 Car Transfer (QC): 4 Gait (FIM): 1 Distance: 20' Walk 10 feet (QC): 4 Walk 10ft-Uneven Surface(QC): 4 Walk 50ft with 2 Turns (QC): 88 Walk 150 ft (QC): 88 Gait Level of Assist: 5 Gait Assistive Device: FWW Wheelchair (FIM): 6 Distance: 150' Wheelchair Level of Assist: 6 Wheel 50 feet with 2 turns (QC: 6 Stairs (FIM): 2 # of Steps: 4 1 Step (curb) (QC): 4 4 Steps (QC): 4 12 Steps (QC): 88 Stairs Level Of Assist: 4 Picking up an Object (QC): 88 PT Plan Treatment/Plan Treatment Plan: Continue Plan of Care Treatment Plan: Bed Mobility, Education, Functional Activity Mahad, Functional Strength, Group Therapy, Gait, Safety, Therapeutic Exercise, Transfers Treatment Duration: Mar 31, 2016 Visits Per Week: 10-11 Minutes/Day (M-F): 60-90 Minutes/Day (Sat/[place]): 15-30 Safety Risks/Education Patient Education: Gait Training, Transfer Techniques, Safety Issues Teaching Recipient: Patient Teaching Methods: Demonstration, Discussion Response to Teaching: Verbalize Understanding, Return Demonstration, Reinforcement Needed Time/GCodes Time In: 1350 Time Out: 1420 Total Billed Treatment Time: 30 Total Billed Treatment 1,FA30m G Codes Necessary: MARINO Roca C WEB DEVELOPER Mar 22, 2016 14:20
[2016-03-22] MEDS: oxyCODONE/APAP 5/325MG (PERCOCET 5) TABLET PO PRN ×2 (14:27→20:20)
[2016-03-22 18:04] VITALS: BP 114/78
--- NOTE | 2016-03-22 19:00 | PM & R (SOAP) Progress Note ---
Subjective Subjective/Events-last exam Patient was seen in her room this AM Patient min assist for transfers Patient continues on Vanco for CDIF and UTI Accuchecks noted Objective Exam Last Set of Vital Signs Vital Signs Date Time Temp Pulse Resp B/P Pulse Ox O2 Delivery O2 Flow Rate FiO2 03/22/16 18:04 97.4 84 16 114/78 98 Room Air Capillary Refill : Less Than 3 Seconds I&O Intake and Output 03/22/16 00:00 Intake Total 1980 ml Balance 1980 ml Intake Oral 1980 ml # Voids 7 # Bowel Movements 2 General: Alert, Oriented X3, Cooperative, No Acute Distress HEENT: Atraumatic Neck: Supple, No JVD, No Thyromegaly Lungs: Clear to Auscultation, Normal Air Movement Heart: Regular Rate, Normal S1, Normal S2, No Murmurs Abdomen: Normal Bowel Sounds, Soft, No Tenderness Extremities: No Clubbing, No Cyanosis Skin: No Rashes, No Breakdown, No Significant Lesion, Other (L anterior Knee - 2.0 x 2.4 x 0.1 cm; 100% scab. Sacral area - cluster of 3 midline wounds, largest - 0.7 x 1.1 x 0.2 cm; base 100% biofilm.) Neuro: Normal Speech, Strength at 5/5 X4 Ext, Other (mild weakness RLE) Psych/Mental Status: Mental Status NL Results Lab Laboratory Tests 03/19/16 20:59: Glucometer 187H 03/20/16 05:11: Glucometer 189H 03/20/16 10:57: Glucometer 175H 03/20/16 16:32: Glucometer 196H 03/20/16 21:52: Glucometer 210H 03/21/16 05:50: Glucometer 136H 03/21/16 11:04: Glucometer 168H 03/21/16 16:01: Glucometer 196H 03/21/16 20:46: Glucometer 200H 03/22/16 04:56: Glucometer 170H 03/22/16 05:50: Anion Gap 11, BUN/Creatinine Ratio 18, Blood Urea Nitrogen 24H, Calcium Level 9.1, Carbon Dioxide Level 21, Chloride Level 106, Creatinine 1.31H, Estimat Glomerular Filtration Rate 42, Glucose Level 156H, Potassium Level 4.0, Sodium Level 138 03/22/16 06:00: Urine Bacteria FEWH, Urine Bilirubin NEGATIVE, Urine Casts NONE, Urine Clarity CLEAR, Urine Color YELLOW, Urine Crystals NONE, Urine Culture Indicated YES, Urine Glucose (UA) NEGATIVE, Urine Ketones NEGATIVE, Urine Leukocyte Esterase 1+ H, Urine Mucus NEGATIVE, Urine Nitrite NEGATIVE, Urine Protein 1+H, Urine RBC NONE, Urine RBC (Auto) NEGATIVE, Urine Specific [place] 1.010L, Urine Squamous Epithelial Cells 10-25H, Urine Urobilinogen NORMAL, Urine WBC 10-25H, Urine pH 6.5 03/22/16 11:14: Glucometer 156H 03/22/16 16:03: Glucometer 206H Microbiology 03/09/16 C. difficile GDH Antigen & Toxins - Final, Complete 03/17/16 Urine Culture - Final, Complete Klebsiella Pneumoniae Assessment/Plan Assessment Left BKA 02-01-16 OSH for gangrenous left foot Postop C DIF bowel colitis associated with sepsis treated at OSH-now on Vanco for ongoing treatment Mild Hypokalemia Mild postop Anemia IDDM controlled HTN with hx of afib now sinus with hypotension depression on meds Tobaccoism declines Smoking cessation Trace edema rt ankle Uncertain if patient would tolerate Freddy hose-Lasix prn ordered-one dose ordered with improvement-resolved UTI with fever now afebrile on Vanco Check sensitivity-done Plan Continue PT/OT DR Barrios to see re cardiac meds with echo ordered-done appreciate his consult and f/u recheck labs-done Lasix times one done-edema improved Completed course of Flagyl for Cdif now on course of Vanco with meds adjusted to promote formed stools Team Conference held 03-16-16-see report for full functional update and POC and ELOS F/U re sensitivity of Gram Negative rods.-done Next Team Conference tomorrow 03-23-[address] sharp notes and orders IRMA ESPINOZA MD Mar 22, 2016 19:00
--- NOTE | 2016-03-22 20:03 | Wound Care Progress Note ---
Subjective Subjective Subjective/Events-last exam 55 year old female with healing L BKA, healed pressure ulcers of sacral areas, and pressure injury to anterior R Knee. The wounds are stable to improved. Review of Systems General: No Chills Pulmonary: No Dyspnea Cardiovascular: No: Chest Pain Integumentary -- Wounds of sacrum, L knee. Healing L BKA incision. Psych -- Some depression, anxious. Objective Exam Last Set of Vital Signs Vital Signs Date Time Temp Pulse Resp B/P Pulse Ox O2 Delivery O2 Flow Rate FiO2 03/22/16 18:04 97.4 84 16 114/78 98 Room Air Capillary Refill : Less Than 3 Seconds I&O Intake and Output 03/22/16 00:00 Intake Total 1980 ml Balance 1980 ml Intake Oral 1980 ml # Voids 7 # Bowel Movements 2 General: Alert, No Acute Distress Lungs: Normal Air Movement Skin: Other (Sacral wounds are essentially healed. L knee wound unchanged.) Results Lab Laboratory Tests 03/21/16 20:46: Glucometer 200H 03/22/16 04:56: Glucometer 170H 03/22/16 05:50: Anion Gap 11, BUN/Creatinine Ratio 18, Blood Urea Nitrogen 24H, Calcium Level 9.1, Carbon Dioxide Level 21, Chloride Level 106, Creatinine 1.31H, Estimat Glomerular Filtration Rate 42, Glucose Level 156H, Potassium Level 4.0, Sodium Level 138 03/22/16 06:00: Urine Bacteria FEWH, Urine Bilirubin NEGATIVE, Urine Casts NONE, Urine Clarity CLEAR, Urine Color YELLOW, Urine Crystals NONE, Urine Culture Indicated YES, Urine Glucose (UA) NEGATIVE, Urine Ketones NEGATIVE, Urine Leukocyte Esterase 1+ H, Urine Mucus NEGATIVE, Urine Nitrite NEGATIVE, Urine Protein 1+H, Urine RBC NONE, Urine RBC (Auto) NEGATIVE, Urine Specific [place] 1.010L, Urine Squamous Epithelial Cells 10-25H, Urine Urobilinogen NORMAL, Urine WBC 10-25H, Urine pH 6.5 03/22/16 11:14: Glucometer 156H 03/22/16 16:03: Glucometer 206H Microbiology 03/09/16 C. difficile GDH Antigen & Toxins - Final, Complete 03/17/16 Urine Culture - Final, Complete Klebsiella Pneumoniae Assessment/Plan Assessment/Plan Assessment/Plan 1. Pressure ulcer , sacrum , stage 3. 2. Pressure ulcer, L knee, stage 2. 3. PAD with ulcer L calf. 4. Tobacco abuse. Plan: Continue present regimen. QUINN HAWK MD Mar 22, 2016 20:03
[2016-03-22] MEDS: ATORVASTATIN 40 MG (LIPITOR) TABLET PO SCH (20:10)
[2016-03-22] MEDS: inSUlin DETERMIR 1 UNIT/0.01 ML (LEVEMIR) CHARGE PER UNIT SQ SCH (20:11)
[2016-03-22] MEDS: ENOXAPARIN 40 MG/0.4 ML (LOVENOX) SYR SC SCH (20:11)
[2016-03-23 04:39] VITALS: BP 106/71
[2016-03-23] MEDS: inSUlin (REGULAR) HUMAN 1 UNIT/0.01 ML (CHARGE PER UNIT) SC SCH ×4 (05:12→20:13)
[2016-03-23] MEDS: VANCOMYCIN ORAL 250 MG/5 ML 60 ML PO SCH ×8 (06:06→23:53)
--- NOTE | 2016-03-23 08:00 | Progress Note (SOAP) ---
Subjective Subjective/Events-last exam patient feeling better. Patient able to hop now 6 times. UA shows another infection with different organism. Waiting for sensitivity results. Patient has a formed bowel movement. We'll be checking a C. difficile on 03/27/16. Patient positive and doing good. Heart rate under control Objective Exam Vital Signs Date Time Temp Pulse Resp B/P Pulse Ox O2 Delivery O2 Flow Rate FiO2 03/23/16 04:39 96.7 82 16 106/71 98 Room Air 03/22/16 18:04 97.4 84 16 114/78 98 Room Air 03/22/16 09:00 Room Air I & O 03/23/16 07:00 Intake Total 1200 ml Balance 1200 ml Capillary Refill : Less Than 3 Seconds General Appearance: No Apparent Distress WD/WN Results Lab Laboratory Tests 03/22/16 11:14: Glucometer 156H 03/22/16 16:03: Glucometer 206H 03/22/16 20:09: Glucometer 197H 03/23/16 04:56: Glucometer 181H Microbiology 03/09/16 C. difficile GDH Antigen & Toxins - Final, Complete 03/22/16 Urine Culture - Preliminary, Resulted Pseudomonas Aeruginosa Assessment/Plan Assessment/Plan Assess & Plan/Chief Complaint left below the knee amputation. Diabetes. Peripheral vascular disease. Depression history. Hypertension history. . 03/11/16 left below knee amputation. Diabetes. Peripheral vascular disease. History of hypertension. C. difficile. Hypotensive. Health lisinopril. . Left knee below amputation. Diabetes. Peripheral vascular disease. History of atrial fibrillation. Patient in sinus rhythm. Hypotension. C. difficile. Diarrhea improving. . 03/15/16. Left below the knee amputation. Diabetes. Peripheral vascular disease. Depression history. Atrial fib. Blood pressure goodt and heart rate within normal limits. . 03/16/16. Left below the knee amputation. Peripheral vascular disease. Diabetes. C. difficile. History of atrial fibrillation. Diarrhea better. Potassium 3.3 Will replace. Patient has renal insufficiency. . 03/17/16. Left below the knee amputation. Diabetes. Peripheral vascular disease. Depression history. Patient doing better. Patient happy. Patient improving. . 03/18/16. Left below the knee amputation. Diabetes. 4 vascular disease. Depression history. UA shows infection. C. difficile. To put on antibiotics only for 2 days when get sensitivity. . 03/21/16. Left below the knee amputation. C. difficile. Stools are better. Diabetes. Peripheral vascular disease. To check UA tomorrow. . 02/3116. Left below the knee amputation. Diabetes. Peripheral vascular disease. Hypertension history. Patient doing better and happy. infection nitrate negative now done today. . 03/23/16. infection with different organism now. Waiting for sensitivity. Patient doing much better. Patient positive. Patient hopping 6 steps. Wound is healing. Patient in the right direction Diagnosis/Problems: Clinical Quality Measures DVT/VTE Risk/Contraindication: Risk Factor Score Per Nursin RFS Level Per Nursing on Admit: 4+=Very High URSULA RENEE DO Mar 23, 2016 08:00
--- NOTE | 2016-03-23 08:01 | Physical Therapy Daily Note ---
PT Daily Note-Current Subjective Pt. states she did not have a good night,"had issues with her " did not elaborate. Requests up on BSC for BM. States no pain. Pain Numeric Pain Scale: 0-No Pain Appearance appears tired, a little groggy Mental Status Patient Orientation: Normal For Age Transfers Functional [place] Measure 0=Not Assessed/NA 4=Minimal Assistance 1=Total Assistance 5=Supervision or Setup 2=Maximal Assistance 6=Modified [place] 3=Moderate Assistance 7=Complete IndependenceIRFPAI Quality Coding Scale 6 Independent with activity with or without an assistive device 5 Patient requires set up or clean up by helper. Patient completes activity by themselves 4 Supervision or touching assist (CGA). [place] provide cues , steadying assist 3 The helper provides less than half the effort to complete the activity 2 The helper provides more than half the effort to complete the activity 1 Dependent. The helper does all the effort to complete an activity 7 Patient refused to complete or attempt activity 9 The patient did not perform the activity before the current illness or injury 88 Not attempted due to Medical conditions or safety concerns Transfers (B, C, W/C) (FIM): 4 Scootin Rollin Supine to/from Sit: 6 Sit to/from Stand: 4 Bed to/from Chair: 4 pt. requires CGA for all TRFs sit to stand and SPT Gait Training Does the Patient Walk?: Yes Gait (FIM): 1 Distance (FIM): 1=up to 49 ft (8ftx2) Gait Level of Assist: 4 Gait Persons Needed: 1 Gait Assistive Device: FWW pt. with shoe on right foot, better control demonstrated with hops , w/c to f/u and CGA, pt. does fatigue but is very happy with her progress Wheelchair Training Does the Pt Use a Wheelchair?: Yes Wheelchair (FIM): 2 Wheelchair Distance: 4=515-77 ft (50ft,20ft) Wheelchair Level of Assist: 5 Type of Wheelchair: Manual manages well in confined space in out doors etc. Exercises Supine Ex: Bridging, Ankle pumps (HC stretch 4x20s), Quad Set, Rolling, Glut sets, Heel Slides, Short Arc Quads, Scooting, Straight leg raise, Hip abd/add Supine Reps: 15 sidelying and prone hip abd and ext x 12 Treatments toileted with min assist to manage pants up down, pt cleans self indep Assessment Current Status: Good Progress increased gait skills PT Short Term Goals Short Term Goals Time Frame: Mar 17, 2016 Gait (FIM): 1 Gait Distance Comment: 10' Gait Level of Assist: 4 Gait Assistive Device: FWW Wheelchair Distance: 150' PT Usp Goals Vice President Of Advertising Goals PT Vice President Of Advertising Goals Time Frame: Mar 31, 2016 Transfers (B,C,W/C) (FIM): 5 Sit to Lying (QC): 4 Lying-Sitting on Side/Bed(QC): 4 Sit to Stand (QC): 4 Rollin Roll Left to Right (QC): 4 Chair/Uej-bn-Bzoue Xfer(QC): 4 Car Transfer (QC): 4 Gait (FIM): 1 Distance: 20' Walk 10 feet (QC): 4 Walk 10ft-Uneven Surface(QC): 4 Walk 50ft with 2 Turns (QC): 88 Walk 150 ft (QC): 88 Gait Level of Assist: 5 Gait Assistive Device: FWW Wheelchair (FIM): 6 Distance: 150' Wheelchair Level of Assist: 6 Wheel 50 feet with 2 turns (QC: 6 Stairs (FIM): 2 # of Steps: 4 1 Step (curb) (QC): 4 4 Steps (QC): 4 12 Steps (QC): 88 Stairs Level Of Assist: 4 Picking up an Object (QC): 88 PT Plan Treatment/Plan Treatment Plan: Continue Plan of Care Treatment Plan: Bed Mobility, Education, Functional Activity Mahad, Functional Strength, Group Therapy, Gait, Safety, Therapeutic Exercise, Transfers Treatment Duration: Mar 31, 2016 Visits Per Week: 10-11 Minutes/Day (M-F): 60-90 Minutes/Day (Sat/[place]): 15-30 Safety Risks/Education Patient Education: Gait Training, Transfer Techniques, Issued Written HEP, Correct Positioning, W/C Management, Disease Process, Safety Issues Teaching Recipient: Patient Teaching Methods: Demonstration, Discussion Response to Teaching: Verbalize Understanding, Return Demonstration, Reinforcement Needed Time/GCodes Time In: 700 Time Out: 800 Total Billed Treatment Time: 60 Total Billed Treatment 1,EX25,FA20,GT15 G Codes Necessary: MARINO Roca [place] REDEVELOPMENT SITE MANAGER Mar 23, 2016 08:01
--- NOTE | 2016-03-23 08:29 | Cardiology Progress Note ---
Subjective Subjective/Events-last exam Patient is sitting in chair, eating breakfast. No new complaint. Denies any CP or dyspnea. Denies dysuria. Review of Systems General: No Night Sweats, No Fatigue, No Malaise HEENT: No Visual Changes, No Dysphasia Pulmonary: No Dyspnea, No Cough Cardiovascular: No: Chest Pain, Orthopnea, Palpitations Gastrointestinal: No: Abdominal Pain, Nausea, Vomiting Genitourinary: No Dysuria, No Frequency, No Hematuria Musculoskeletal: No: back pain, neck pain Neurological: No: Change in speech, Confusion, Numbness, Weakness Objective-Cardiology Exam Last Set of Vital Signs Vital Signs 03/23/16 04:39 Temp 96.7 Pulse 82 Resp 16 B/P 106/71 Pulse Ox 98 O2 Delivery Room Air Capillary Refill : Less Than 3 Seconds I&O Intake and Output 03/23/16 00:00 Intake Total 1200 ml Balance 1200 ml Intake Oral 1200 ml # Voids 6 # Bowel Movements 1 General: Alert, Oriented X3, Cooperative, No Acute Distress HEENT: Atraumatic Neck: Supple, No JVD, No Thyromegaly Lungs: Clear to Auscultation, Normal Air Movement Heart: Regular Rate, Normal S1, Normal S2, No Murmurs Abdomen: Normal Bowel Sounds, Soft, No Tenderness Extremities: No Clubbing, No Cyanosis Skin: No Rashes, No Breakdown, No Significant Lesion Neuro: Normal Speech, Strength at 5/5 X4 Ext, Other (mild weakness RLE) Psych/Mental Status: Mental Status NL A/P-Cardiology Admission Diagnosis Hypotension Paroxysmal atrial fibrillation Hyperlipidemia Peripheral arterial disease Diabetes mellitus Assessment/Plan Hypotension, probably secondary to hypovolemia in addition to her aggressive antihypertensive medications. Stay off XOCHITL inhibitor, continue on Cardizem and monitor blood pressure. Paroxysmal atrial fibrillation, reporting episode of atrial fibrillation during her hospital stay in January at [facility]. She is not on oral anticoagulation, no signs of bleeding. Probably transient episode of atrial fibrillation. She denied any previous history prior to her surgery. No syncope was reported. Currently in sinus rhythm. Continue to monitor C. difficile colitis, still having diarrhea, had low-grade fever, treated by primary care physician, I will evaluate CBC and metabolic profile UTI- cx shows pseudomonas, management by medical services History of hypertension, status post hypotension, blood pressure is better. Continue to monitor Peripheral arterial disease, extensive, continue to monitor closely. Patient complaining of RLE claudication pain. 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 Anemia, monitor H&H Hyperlipidemia, maintained on Lipitor. Monitor lipids Diabetes mellitus, followed and managed by primary care physician Tobaccoism, educated in length on smoking cessation Depression, anxiety. Managed by primary care physician Debility, receiving physical therapy Clinical Quality Measures DVT/VTE Risk/Contraindication: Risk Factor Score Per Nursin RFS Level Per Nursing on Admit: 4+=Very High LINH WALLACE Mar 23, 2016 08:28
--- NOTE | 2016-03-23 08:59 | Physical Therapy Daily Note ---
PT Daily Note-Current Subjective Pt. agrees to Rx. Shares how her apptmt at [facility] went yesterday. States she retuto go"rned very late and had no food in between but is hopeful and feels better today "2 drains out, 2 to go" Pain Numeric Pain Scale: 0-No Pain Mental Status Patient Orientation: Normal For Age Attachments: Drains, IV Transfers Functional [place] Measure 0=Not Assessed/NA 4=Minimal Assistance 1=Total Assistance 5=Supervision or Setup 2=Maximal Assistance 6=Modified [place] 3=Moderate Assistance 7=Complete IndependenceIRFPAI Quality Coding Scale 6 Independent with activity with or without an assistive device 5 Patient requires set up or clean up by helper. Patient completes activity by themselves 4 Supervision or touching assist (CGA). [place] provide cues , steadying assist 3 The helper provides less than half the effort to complete the activity 2 The helper provides more than half the effort to complete the activity 1 Dependent. The helper does all the effort to complete an activity 7 Patient refused to complete or attempt activity 9 The patient did not perform the activity before the current illness or injury 88 Not attempted due to Medical conditions or safety concerns Transfers (B, C, W/C) (FIM): 6 Scootin Rollin Supine to/from Sit: 5 Sit to/from Stand: 6 Bed to/from Chair: 5 needs assist to guard IV and drains etc Gait Training Does the Patient Walk?: Yes Gait (FIM): 5 Distance (FIM): 9=064-05 ft (50ftx2) Gait Level of Assist: 5 Gait Persons Needed: 1 Gait Assistive Device: FWW really only needs assist to manage IVs, no LOB, manages turns etc in tight spaces well Exercises Supine Ex: Ankle pumps, Quad Set, Glut sets, Heel Slides, Straight leg raise, Hip abd/add Supine Reps: 12 Seated Therapy Exercises: Ankle pumps, Sit to stand, Long arc quads, Hip flexion Seated Reps: 10 Assessment Current Status: Excellent Progress gaining strength and indep quickly, PT Short Term Goals Short Term Goals Time Frame: Mar 17, 2016 Gait (FIM): 1 Gait Distance Comment: 10' Gait Level of Assist: 4 Gait Assistive Device: FWW Wheelchair Distance: 150' PT Senior Living Goals Senior Living Goals PT Senior Living Goals Time Frame: Mar 31, 2016 Transfers (B,C,W/C) (FIM): 5 Sit to Lying (QC): 4 Lying-Sitting on Side/Bed(QC): 4 Sit to Stand (QC): 4 Rollin Roll Left to Right (QC): 4 Chair/Gzu-zw-Pgfrf Xfer(QC): 4 Car Transfer (QC): 4 Gait (FIM): 1 Distance: 20' Walk 10 feet (QC): 4 Walk 10ft-Uneven Surface(QC): 4 Walk 50ft with 2 Turns (QC): 88 Walk 150 ft (QC): 88 Gait Level of Assist: 5 Gait Assistive Device: FWW Wheelchair (FIM): 6 Distance: 150' Wheelchair Level of Assist: 6 Wheel 50 feet with 2 turns (QC: 6 Stairs (FIM): 2 # of Steps: 4 1 Step (curb) (QC): 4 4 Steps (QC): 4 12 Steps (QC): 88 Stairs Level Of Assist: 4 Picking up an Object (QC): 88 PT Plan Treatment/Plan Treatment Plan: Continue Plan of Care Treatment Plan: Bed Mobility, Education, Functional Activity Mahad, Functional Strength, Group Therapy, Gait, Safety, Therapeutic Exercise, Transfers Treatment Duration: Mar 31, 2016 Visits Per Week: 10-11 Minutes/Day (M-F): 60-90 Minutes/Day (Sat/[place]): 15-30 Safety Risks/Education Patient Education: Gait Training, Transfer Techniques, Correct Positioning, Disease Process, Safety Issues Teaching Recipient: Patient Teaching Methods: Demonstration, Discussion Response to Teaching: Verbalize Understanding, Return Demonstration, Reinforcement Needed Time/GCodes Time In: 800 Time Out: 900 Total Billed Treatment Time: 60 Total Billed Treatment 1,FA20,EX15m,GT25 G Codes Necessary: MARINO Roca CAD DESIGNER Mar 23, 2016 08:59
[2016-03-23] MEDS: DILTIAZEM 30 MG (CARDIZEM) TAB PO SCH ×3 (09:14→20:04)
[2016-03-23] MEDS: DULoxetine 30 MG (CYMBALTA) CAP PO SCH (09:14)
[2016-03-23] MEDS: GABAPENTIN 600 MG (NEURONTIN) TAB PO SCH ×3 (09:15→20:04)
[2016-03-23] MEDS: ALPRAZolam 0.5 MG (XANAX) TAB PO PRN ×2 (09:52→23:53)
--- NOTE | 2016-03-23 12:01 | Occupational Ther Daily Note ---
OT Current Status-Daily Note Subjective Pt sitting in chair, agrees to treatment. Pt tearful after conversation with spouse. Mental Status/Objective Functional [place] Measure 0=Not Assessed/NA 4=Minimal Assistance 1=Total Assistance 5=Supervision or Setup 2=Maximal Assistance 6=Modified [place] 3=Moderate Assistance 7=Complete [place] ADL-Treatment Pt requests to get dressed this am. Pt retrieved clothing from closet at w/c level. Don pullover shirt without assistance. Pt donned pants with minimal assistance for standing balance during pant hike using FWW. Pt requires minimal assistance to pull pants up on left side. Don right shoe without assistance. Pt combed hair and applied deodorant with modified independence. Transfer w/c <-> BSC with CGA for balance. Pt able to pull pants down and complete toileting hygiene without assistance, but required assist to pull pants up on left side secondary to decreased balance. Functional [place] Measure 0=Not Assessed/NA 4=Minimal Assistance 1=Total Assistance 5=Supervision or Setup 2=Maximal Assistance 6=Modified [place] 3=Moderate Assistance 7=Complete IndependenceIRFPAI Quality Coding Scale 6 Independent with activity with or without an assistive device 5 Patient requires set up or clean up by helper. Patient completes activity by themselves 4 Supervision or touching assist (CGA). [place] provide cues , steadying assist 3 The helper provides less than half the effort to complete the activity 2 The helper provides more than half the effort to complete the activity 1 Dependent. The helper does all the effort to complete an activity 7 Patient refused to complete or attempt activity 9 The patient did not perform the activity before the current illness or injury 88 Not attempted due to Medical conditions or safety concerns Grooming (FIM): 6 Upper Body (FIM): 6 Upper Body Dressing (QC): 6 Lower Body Dressing (FIM): 4 Lower Body Dressing (QC): 3 On/Off Footwear (QC): 5 Toileting (FIM): 3 Toilet/Commode Transfer (FIM): 4 Other Treatment Pt performed putty activity with bilateral hands to increase strength. Pt then able to remove small beads with bilateral hands to increase strength and fine motor coordination. Arm bike x12 minutes to increase overall strength and activity tolerance needed for functional tasks. Pt performed task with moderate resistance and steady pace. No rest breaks needed. Pt performed bilateral UE exercises to promote increased strength needed for ADLs and transfers. Pt performed shoulder flexion, abduction, shoulder press, biceps curls, and triceps extension exercises x15 reps with 2# weight. Rest breaks between exercises. W/c pushups x10 to increase strength for transfers. Pt practiced transfers w/c<-> EOB with FWW. Pt able to perform transfers with minimal assistance to EOB, but on return transfer to w/c pt had episode of right knee buckling, requiring moderate assistance to get safely to w/c. Pt then able to reposition self in w/c without assistance. Pt requests to remain sitting in w/c after session. All needs met. OT Short Term Goals Short Term Goals Time Frame: Mar 17, 2016 Bathing(FIM): 4 Lower Body Dressing(FIM): 3 Toileting(FIM): 3 Toilet/Commode Transfer(FIM): 4 Shower Transfer(FIM): 3 Additional Short Term Goals: 1-Demonstrate ADL Tasks, 2-Verbalize Understanding , 3-ImproveStrength/Mahad 1=Demonstrate adherence to instructed precautions during ADL tasks. 2=Patient will verbalize/demonstrate understanding of assistive devices/ modifications for ADL. 3=Patient will improve strength/tolerance for activity to enable patient to perform ADL's. OT Dressed Poultry Grader Goals Half-Way Goals Time Frame: Mar 31, 2016 Eating (FIM): 6 Eating (QC): 6 Oral Hygiene (QC): 6 Grooming(FIM): 6 Bathing(FIM): 5 Shower/Bathe Self (QC): 4 Upper Body Dressing(FIM): 6 Upper Body Dressing (QC): 6 Lower Body Dressing(FIM): 5 Lower Body Dressing (QC): 4 On/Off Footwear (QC): 5 Toileting(FIM): 5 Toileting Hygiene (QC): 4 Toilet/Commode Transfer(FIM): 5 Toilet/Commode Transfer (QC): 4 Shower Transfer(FIM): 4 Additional Goals: 1-Demonstrate ADL Tasks, 2-Verbalize Understanding, 3- ImproveStrength/Mahad 1=Demonstrate adherence to instructed precautions during ADL tasks. 2=Patient will verbalize/demonstrate understanding of assistive devices/ modifications for ADL. 3=Patient will improve strength/tolerance for activity to enable patient to perform ADL's. OT Education/Plan Problem List/Assessment Pt demonstrates decreased mobility, strength, activity tolerance, and ADL performance. Pt to benefit from skilled OT intervention for ADL training, transfers, strengthening, adaptive equipment training as needed, and home safety education to maximize level of function and allow safe discharge. Discharge Recommendations Plan/Recommendations: Continue POC Treatment Plan/Plan of Care Patient would benefit from OT for education, treatment and training to promote independence in ADL's, mobility, safety and/or upper extremity function for ADL' s. Plan of Care: ADL Retraining, Functional Mobility, Group Exercise/Act as Ind, UE Funct Exercise/Act Treatment Duration: Mar 31, 2016 Visits Per Week: 10-11 Minutes/Day (M-F): 60-90 Minutes/Day (Sat/[place]): PRN Agreement: Yes Rehab Potential: Fair Time/GCodes Start Time: 09:15 Stop Time: 10:45 Total Time Billed (hr/min): 90 Billed Treatment Time 1 visit, ADLx2(30minutes), EXx3(45minutes), FA(15minutes) OLIVIA NELSON OT Mar 23, 2016 12:01
--- NOTE | 2016-03-23 14:33 | Physical Therapy Daily Note ---
PT Daily Note-Current Subjective States she will be so happy to be able to come to group and get out of her room. Transfers Functional [place] Measure 0=Not Assessed/NA 4=Minimal Assistance 1=Total Assistance 5=Supervision or Setup 2=Maximal Assistance 6=Modified [place] 3=Moderate Assistance 7=Complete IndependenceIRFPAI Quality Coding Scale 6 Independent with activity with or without an assistive device 5 Patient requires set up or clean up by helper. Patient completes activity by themselves 4 Supervision or touching assist (CGA). [place] provide cues , steadying assist 3 The helper provides less than half the effort to complete the activity 2 The helper provides more than half the effort to complete the activity 1 Dependent. The helper does all the effort to complete an activity 7 Patient refused to complete or attempt activity 9 The patient did not perform the activity before the current illness or injury 88 Not attempted due to Medical conditions or safety concerns sit to stands x 6 all CGA Gait Training Gait Assistive Device: FWW 6ftx2 with CGA and w/c right behind, Wheelchair Training Type of Wheelchair: Manual pt. maneuvered w/c about room into bathroom to wash hands and a few items she wanted to rinse as well. pt. turns in tight spaces well given time and a few cues. Exercises Seated Therapy Exercises: Ankle pumps, Long arc quads, Hip flexion Seated Reps: 12 Assessment Current Status: Good Progress PT Short Term Goals Short Term Goals Time Frame: Mar 17, 2016 Gait (FIM): 1 Gait Distance Comment: 10' Gait Level of Assist: 4 Gait Assistive Device: FWW Wheelchair Distance: 150' PT Hospice Chaplain Goals Correction Goals PT Correction Goals Time Frame: Mar 31, 2016 Transfers (B,C,W/C) (FIM): 5 Sit to Lying (QC): 4 Lying-Sitting on Side/Bed(QC): 4 Sit to Stand (QC): 4 Rollin Roll Left to Right (QC): 4 Chair/[id number]-Jkujk Xfer(QC): 4 Car Transfer (QC): 4 Gait (FIM): 1 Distance: 20' Walk 10 feet (QC): 4 Walk 10ft-Uneven Surface(QC): 4 Walk 50ft with 2 Turns (QC): 88 Walk 150 ft (QC): 88 Gait Level of Assist: 5 Gait Assistive Device: FWW Wheelchair (FIM): 6 Distance: 150' Wheelchair Level of Assist: 6 Wheel 50 feet with 2 turns (QC: 6 Stairs (FIM): 2 # of Steps: 4 1 Step (curb) (QC): 4 4 Steps (QC): 4 12 Steps (QC): 88 Stairs Level Of Assist: 4 Picking up an Object (QC): 88 PT Plan Treatment/Plan Treatment Plan: Continue Plan of Care Treatment Plan: Bed Mobility, Education, Functional Activity Mahad, Functional Strength, Group Therapy, Gait, Safety, Therapeutic Exercise, Transfers Treatment Duration: Mar 31, 2016 Visits Per Week: 10-11 Minutes/Day (M-F): 60-90 Minutes/Day (Sat/[place]): 15-30 Safety Risks/Education Patient Education: Gait Training, Transfer Techniques Teaching Recipient: Patient Teaching Methods: Demonstration, Discussion Response to Teaching: Return Demonstration, Reinforcement Needed Time/GCodes Time In: 1145 Time Out: 1215 Total Billed Treatment Time: 30 Total Billed Treatment 1,FA30m G Codes Necessary: MARINO Roca ADMISSION LIAISON Mar 23, 2016 14:33
--- NOTE | 2016-03-23 15:20 | PM & R (SOAP) Progress Note ---
Subjective Subjective/Events-last exam Patient was seen in her room this AM Progressing well with therapies Stools formed no diarrhea Objective Exam Last Set of Vital Signs Vital Signs Date Time Temp Pulse Resp B/P Pulse Ox O2 Delivery O2 Flow Rate FiO2 03/23/16 09:00 Room Air 03/23/16 04:39 96.7 82 16 106/71 98 Capillary Refill : Less Than 3 Seconds I&O Intake and Output 03/23/16 00:00 Intake Total 1200 ml Balance 1200 ml Intake Oral 1200 ml # Voids 6 # Bowel Movements 1 General: Alert, Oriented X3, Cooperative, No Acute Distress HEENT: Atraumatic Neck: Supple, No JVD, No Thyromegaly Lungs: Clear to Auscultation, Normal Air Movement Heart: Regular Rate, Normal S1, Normal S2, No Murmurs Abdomen: Normal Bowel Sounds, Soft, No Tenderness Extremities: No Clubbing, No Cyanosis Skin: No Rashes, No Breakdown, No Significant Lesion Neuro: Normal Speech, Strength at 5/5 X4 Ext, Other (mild weakness RLE) Psych/Mental Status: Mental Status NL Results Lab Laboratory Tests 03/20/16 16:32: Glucometer 196H 03/20/16 21:52: Glucometer 210H 03/21/16 05:50: Glucometer 136H 03/21/16 11:04: Glucometer 168H 03/21/16 16:01: Glucometer 196H 03/21/16 20:46: Glucometer 200H 03/22/16 04:56: Glucometer 170H 03/22/16 05:50: Anion Gap 11, BUN/Creatinine Ratio 18, Blood Urea Nitrogen 24H, Calcium Level 9.1, Carbon Dioxide Level 21, Chloride Level 106, Creatinine 1.31H, Estimat Glomerular Filtration Rate 42, Glucose Level 156H, Potassium Level 4.0, Sodium Level 138 03/22/16 06:00: Urine Bacteria FEWH, Urine Bilirubin NEGATIVE, Urine Casts NONE, Urine Clarity CLEAR, Urine Color YELLOW, Urine Crystals NONE, Urine Culture Indicated YES, Urine Glucose (UA) NEGATIVE, Urine Ketones NEGATIVE, Urine Leukocyte Esterase 1+ H, Urine Mucus NEGATIVE, Urine Nitrite NEGATIVE, Urine Protein 1+H, Urine RBC NONE, Urine RBC (Auto) NEGATIVE, Urine Specific Chloe 1.010L, Urine Squamous Epithelial Cells 10-25H, Urine Urobilinogen NORMAL, Urine WBC 10-25H, Urine pH 6.5 03/22/16 11:14: Glucometer 156H 03/22/16 16:03: Glucometer 206H 03/22/16 20:09: Glucometer 197H 03/23/16 04:56: Glucometer 181H 03/23/16 10:56: Glucometer 193H Microbiology 03/09/16 C. difficile GDH Antigen & Toxins - Final, Complete 03/22/16 Urine Culture - Preliminary, Resulted Pseudomonas Aeruginosa Assessment/Plan Assessment Left BKA 02-01-16 OSH for gangrenous left foot Postop C DIF bowel colitis associated with sepsis treated at OSH-now on Vanco for ongoing treatment Mild Hypokalemia Mild postop Anemia IDDM controlled HTN with hx of afib now sinus with hypotension depression on meds Tobaccoism declines Smoking cessation Trace edema rt ankle Uncertain if patient would tolerate Freddy hose-Lasix prn ordered-one dose ordered with improvement-resolved UTI with fever now afebrile on Vanco Check sensitivity-done Plan Continue PT/OT DR Barrios to see re cardiac meds with echo ordered-done appreciate his consult and f/u recheck labs-done Lasix times one done-edema improved Completed course of Flagyl for Cdif now on course of Vanco with meds adjusted to promote formed st F/U re sensitivity of Gram Negative rods.-don Apprediate DR sharp notes and orders Team Conference held earlier today-See report for full functional update and POC and IRMA MOORE MD Mar 23, 2016 15:20
[2016-03-23 19:02] VITALS: BP 118/79
[2016-03-23] MEDS: inSUlin DETERMIR 1 UNIT/0.01 ML (LEVEMIR) CHARGE PER UNIT SQ SCH (20:04)
[2016-03-23] MEDS: ENOXAPARIN 40 MG/0.4 ML (LOVENOX) SYR SC SCH (20:04)
[2016-03-23] MEDS: ATORVASTATIN 40 MG (LIPITOR) TABLET PO SCH (20:04)
[2016-03-23] MEDS: oxyCODONE/APAP 5/325MG (PERCOCET 5) TABLET PO PRN (20:05)
[2016-03-24 06:00] VITALS: BP 99/64
[2016-03-24] MEDS: inSUlin (REGULAR) HUMAN 1 UNIT/0.01 ML (CHARGE PER UNIT) SC SCH ×4 (06:00→20:11)
[2016-03-24] MEDS: VANCOMYCIN ORAL 250 MG/5 ML 60 ML PO SCH ×6 (06:08→18:14)
--- NOTE | 2016-03-24 08:16 | Progress Note (SOAP) ---
Subjective Subjective/Events-last exam patient doing better. Patient out on room today. Patient be on Cipro 500 one twice a day for 3 days. Patient to be on Diflucan 100 mg 1 daily for 4 days. Due to infection. Sugars are better. Patient has no complaints Objective Exam Vital Signs Date Time Temp Pulse Resp B/P Pulse Ox O2 Delivery O2 Flow Rate FiO2 03/24/16 06:00 96.9 85 16 99/64 94 Room Air 03/23/16 19:02 97.9 89 18 118/79 98 Room Air 03/23/16 09:00 Room Air I & O 03/24/16 07:00 Intake Total 1620 ml Balance 1620 ml Capillary Refill : Less Than 3 Seconds General Appearance: No Apparent Distress WD/WN HEENT: Normal ENT Inspection Neck: Full Range of Motion Normal Inspection Respiratory: Chest Non Tender Lungs Clear Normal Breath Sounds No Accessory Muscle Use No Respiratory Distress Cardiovascular: Regular Rate, Rhythm Results Lab Laboratory Tests 03/23/16 10:56: Glucometer 193H 03/23/16 17:21: Glucometer 210H 03/23/16 20:09: Glucometer 202H 03/24/16 06:09: Glucometer 181H Microbiology 03/09/16 C. difficile GDH Antigen & Toxins - Final, Complete 03/22/16 Urine Culture - Preliminary, Resulted Pseudomonas Aeruginosa Yeast Species Assessment/Plan Assessment/Plan Assess & Plan/Chief Complaint left below the knee amputation. Diabetes. Peripheral vascular disease. Depression history. Hypertension history. . 03/11/16 left below knee amputation. Diabetes. Peripheral vascular disease. History of hypertension. C. difficile. Hypotensive. Health lisinopril. . Left knee below amputation. Diabetes. Peripheral vascular disease. History of atrial fibrillation. Patient in sinus rhythm. Hypotension. C. difficile. Diarrhea improving. . 03/15/16. Left below the knee amputation. Diabetes. Peripheral vascular disease. Depression history. Atrial fib. Blood pressure goodt and heart rate within normal limits. . 03/16/16. Left below the knee amputation. Peripheral vascular disease. Diabetes. C. difficile. History of atrial fibrillation. Diarrhea better. Potassium 3.3 Will replace. Patient has renal insufficiency. . 03/17/16. Left below the knee amputation. Diabetes. Peripheral vascular disease. Depression history. Patient doing better. Patient happy. Patient improving. . 03/18/16. Left below the knee amputation. Diabetes. 4 vascular disease. Depression history. UA shows infection. C. difficile. To put on antibiotics only for 2 days when get sensitivity. . 03/21/16. Left below the knee amputation. C. difficile. Stools are better. Diabetes. Peripheral vascular disease. To check UA tomorrow. . 02/3116. Left below the knee amputation. Diabetes. Peripheral vascular disease. Hypertension history. Patient doing better and happy. infection nitrate negative now done today. . 03/23/16. infection with different organism now. Waiting for sensitivity. Patient doing much better. Patient positive. Patient hopping 6 steps. Wound is healing. Patient in the right direction . 03/24/16. Left below the knee amputation. Diabetes. Peripheral vascular disease. Depression. Patient doing better. Patient improving Diagnosis/Problems: Clinical Quality Measures DVT/VTE Risk/Contraindication: Risk Factor Score Per Nursin RFS Level Per Nursing on Admit: 4+=Very High URSULA RENEE DO Mar 24, 2016 08:16
--- NOTE | 2016-03-24 08:27 | Physical Therapy Daily Note ---
PT Daily Note-Current Subjective Pt. agrees to Rx and happy to be out of isolation. Pain Numeric Pain Scale: 0-No Pain Mental Status Patient Orientation: Normal For Age Transfers Functional [place] Measure 0=Not Assessed/NA 4=Minimal Assistance 1=Total Assistance 5=Supervision or Setup 2=Maximal Assistance 6=Modified [place] 3=Moderate Assistance 7=Complete IndependenceIRFPAI Quality Coding Scale 6 Independent with activity with or without an assistive device 5 Patient requires set up or clean up by helper. Patient completes activity by themselves 4 Supervision or touching assist (CGA). [place] provide cues , steadying assist 3 The helper provides less than half the effort to complete the activity 2 The helper provides more than half the effort to complete the activity 1 Dependent. The helper does all the effort to complete an activity 7 Patient refused to complete or attempt activity 9 The patient did not perform the activity before the current illness or injury 88 Not attempted due to Medical conditions or safety concerns Transfers (B, C, W/C) (FIM): 4 Scootin Rollin Supine to/from Sit: 4 (toward left on firm Rx table surface pt required min to CGA) Sit to/from Stand: 4 (all surfaces raised high) Bed to/from Chair: 4 Gait Training Does the Patient Walk?: Yes Gait (FIM): 1 Distance (FIM): 1=up to 49 ft (12ftx3) Gait Level of Assist: 4 Gait Persons Needed: 1 Gait Assistive Device: Parallel Bars w/c to f/u Wheelchair Training Does the Pt Use a Wheelchair?: Yes Wheelchair (FIM): 5 Wheelchair Distance: 3=150 ft (x2) Wheelchair Level of Assist: 5 Type of Wheelchair: Manual moves slow, some cues needed Exercises Supine Ex: Bridging, Ankle pumps, Quad Set, Rolling, Glut sets, Heel Slides, Short Arc Quads, Scooting, Straight leg raise, Hip abd/add Supine Reps: 15 (bilat) NuStep Minutes: 10 NuStep Workload: 4 Treatments prone and side lying therex x 12 Assessment Current Status: Good Progress fatigues with Rx PT Short Term Goals Short Term Goals Time Frame: Mar 17, 2016 Gait (FIM): 1 Gait Distance Comment: 10' Gait Level of Assist: 4 Gait Assistive Device: FWW Wheelchair Distance: 150' PT Construction Checker Goals Construction Checker Goals PT Fpc Goals Time Frame: Mar 31, 2016 Transfers (B,C,W/C) (FIM): 5 Sit to Lying (QC): 4 Lying-Sitting on Side/Bed(QC): 4 Sit to Stand (QC): 4 Rollin Roll Left to Right (QC): 4 Chair/Afn-fx-Hmrbp Xfer(QC): 4 Car Transfer (QC): 4 Gait (FIM): 1 Distance: 20' Walk 10 feet (QC): 4 Walk 10ft-Uneven Surface(QC): 4 Walk 50ft with 2 Turns (QC): 88 Walk 150 ft (QC): 88 Gait Level of Assist: 5 Gait Assistive Device: FWW Wheelchair (FIM): 6 Distance: 150' Wheelchair Level of Assist: 6 Wheel 50 feet with 2 turns (QC: 6 Stairs (FIM): 2 # of Steps: 4 1 Step (curb) (QC): 4 4 Steps (QC): 4 12 Steps (QC): 88 Stairs Level Of Assist: 4 Picking up an Object (QC): 88 PT Plan Treatment/Plan Treatment Plan: Continue Plan of Care Treatment Plan: Bed Mobility, Education, Functional Activity Mahad, Functional Strength, Group Therapy, Gait, Safety, Therapeutic Exercise, Transfers Treatment Duration: Mar 31, 2016 Visits Per Week: 10-11 Minutes/Day (M-F): 60-90 Minutes/Day (Sat/[place]): 15-30 Safety Risks/Education Patient Education: Gait Training, Transfer Techniques, Correct Positioning, W/ C Management, Disease Process, Safety Issues Teaching Recipient: Patient Teaching Methods: Demonstration, Discussion Response to Teaching: Verbalize Understanding, Return Demonstration, Reinforcement Needed Time/GCodes Time In: 715 Time Out: 815 Total Billed Treatment Time: 60 Total Billed Treatment 1,GT20m,FA15m,EX25m G Codes Necessary: MARINO Roca STEAM FITTER SUPERVISOR Mar 24, 2016 08:27
--- NOTE | 2016-03-24 08:56 | Cardiology Progress Note ---
Subjective Subjective/Events-last exam Patient with PT. No new complaints. Denies any CP or dyspnea. Review of Systems General: No Night Sweats, No Fatigue, No Malaise HEENT: No Visual Changes, No Dysphasia, No Sore Throat Pulmonary: No Dyspnea, No Cough Cardiovascular: No: Chest Pain, Orthopnea, Palpitations Gastrointestinal: No: Abdominal Pain, Nausea, Vomiting Genitourinary: No Dysuria, No Frequency Musculoskeletal: No: back pain, neck pain Neurological: No: Change in speech, Confusion, Numbness, Weakness Objective-Cardiology Exam Last Set of Vital Signs Vital Signs 03/24/16 06:00 Temp 96.9 Pulse 85 Resp 16 B/P 99/64 Pulse Ox 94 O2 Delivery Room Air Capillary Refill : Less Than 3 Seconds I&O Intake and Output 03/24/16 00:00 Intake Total 1160 ml Balance 1160 ml Intake Oral 1160 ml # Voids 6 # Bowel Movements 2 General: Alert, Oriented X3, Cooperative, No Acute Distress HEENT: Atraumatic Neck: Supple, No JVD, No Thyromegaly Lungs: Clear to Auscultation, Normal Air Movement Heart: Regular Rate, Normal S1, Normal S2, No Murmurs Abdomen: Normal Bowel Sounds, Soft, No Tenderness Extremities: No Clubbing, No Cyanosis Skin: No Rashes, No Breakdown, No Significant Lesion Neuro: Normal Speech, Strength at 5/5 X4 Ext, Other (mild weakness RLE) Psych/Mental Status: Mental Status NL A/P-Cardiology Admission Diagnosis Hypotension Paroxysmal atrial fibrillation Hyperlipidemia Peripheral arterial disease Diabetes mellitus Assessment/Plan Hypotension, probably secondary to hypovolemia in addition to her aggressive antihypertensive medications. Stay off XOCHITL inhibitor, continue on Cardizem and monitor blood pressure. Paroxysmal atrial fibrillation, reporting episode of atrial fibrillation during her hospital stay in January at [facility] [place]. She is not on oral anticoagulation, no signs of bleeding. Probably transient episode of atrial fibrillation. She denied any previous history prior to her surgery. No syncope was reported. Currently in sinus rhythm. Continue to monitor C. difficile colitis, still having diarrhea, had low-grade fever, treated by primary care physician, I will evaluate CBC and metabolic profile UTI- management by medical services History of hypertension, status post hypotension, blood pressure is better. Continue to monitor Peripheral arterial disease, extensive, continue to monitor closely. Patient complaining of RLE claudication pain. 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 Anemia, monitor H&H Hyperlipidemia, maintained on Lipitor. Monitor lipids Diabetes mellitus, followed and managed by primary care physician Tobaccoism, educated in length on smoking cessation Depression, anxiety. Managed by primary care physician Debility, receiving physical therapy Clinical Quality Measures DVT/VTE Risk/Contraindication: Risk Factor Score Per Nursin RFS Level Per Nursing on Admit: 4+=Very High LINH WALLACE Mar 24, 2016 08:56
[2016-03-24] MEDS: GABAPENTIN 600 MG (NEURONTIN) TAB PO SCH ×3 (09:00→20:35)
[2016-03-24] MEDS: DULoxetine 30 MG (CYMBALTA) CAP PO SCH (09:00)
[2016-03-24] MEDS: CIPROFLOXACIN 500 MG (CIPRO) TABLET PO SCH ×2 (09:00→20:35)
[2016-03-24] MEDS: fluCOnazole (DIFLUCAN) 100 MG TAB PO SCH (09:00)
[2016-03-24] MEDS: DILTIAZEM 30 MG (CARDIZEM) TAB PO SCH ×3 (09:00→20:35)
--- NOTE | 2016-03-24 11:58 | PM & R (SOAP) Progress Note ---
Subjective Subjective/Events-last exam Patient was seen in her room this AM Discussed case with RN Gisela durbin on back stage one and on knee healing well Residual limb healing well Labs note and current therapy notes Patient out of isolation and stools well formed Objective Exam Last Set of Vital Signs Vital Signs Date Time Temp Pulse Resp B/P Pulse Ox O2 Delivery O2 Flow Rate FiO2 03/24/16 06:00 96.9 85 16 99/64 94 Room Air Capillary Refill : Less Than 3 Seconds I&O Intake and Output 03/24/16 00:00 Intake Total 1160 ml Balance 1160 ml Intake Oral 1160 ml # Voids 6 # Bowel Movements 2 General: Alert, Oriented X3, Cooperative, No Acute Distress HEENT: Atraumatic Neck: Supple, No JVD, No Thyromegaly Lungs: Clear to Auscultation, Normal Air Movement Heart: Regular Rate, Normal S1, Normal S2, No Murmurs Abdomen: Normal Bowel Sounds, Soft, No Tenderness Extremities: No Clubbing, No Cyanosis Skin: No Rashes, No Breakdown, No Significant Lesion, Other (as per above healing well) Neuro: Normal Speech, Strength at 5/5 X4 Ext, Other (mild weakness RLE) Psych/Mental Status: Mental Status NL Results Lab Laboratory Tests 03/21/16 16:01: Glucometer 196H 03/21/16 20:46: Glucometer 200H 03/22/16 04:56: Glucometer 170H 03/22/16 05:50: Anion Gap 11, BUN/Creatinine Ratio 18, Blood Urea Nitrogen 24H, Calcium Level 9.1, Carbon Dioxide Level 21, Chloride Level 106, Creatinine 1.31H, Estimat Glomerular Filtration Rate 42, Glucose Level 156H, Potassium Level 4.0, Sodium Level 138 03/22/16 06:00: Urine Bacteria FEWH, Urine Bilirubin NEGATIVE, Urine Casts NONE, Urine Clarity CLEAR, Urine Color YELLOW, Urine Crystals NONE, Urine Culture Indicated YES, Urine Glucose (UA) NEGATIVE, Urine Ketones NEGATIVE, Urine Leukocyte Esterase 1+ H, Urine Mucus NEGATIVE, Urine Nitrite NEGATIVE, Urine Protein 1+H, Urine RBC NONE, Urine RBC (Auto) NEGATIVE, Urine Specific [place] 1.010L, Urine Squamous Epithelial Cells 10-25H, Urine Urobilinogen NORMAL, Urine WBC 10-25H, Urine pH 6.5 03/22/16 11:14: Glucometer 156H 03/22/16 16:03: Glucometer 206H 03/22/16 20:09: Glucometer 197H 03/23/16 04:56: Glucometer 181H 03/23/16 10:56: Glucometer 193H 03/23/16 17:21: Glucometer 210H 03/23/16 20:09: Glucometer 202H 03/24/16 06:09: Glucometer 181H 03/24/16 11:13: Glucometer 209H Microbiology 03/09/16 C. difficile GDH Antigen & Toxins - Final, Complete 03/22/16 Urine Culture - Final, Complete Pseudomonas Aeruginosa Yeast Species Assessment/Plan Assessment Left BKA 02-01-16 OSH for gangrenous left foot Postop C DIF bowel colitis associated with sepsis treated at OSH-now on Vanco for ongoing treatment-improved Mild Hypokalemia Mild postop Anemia IDDM controlled HTN with hx of afib now sinus with hypotension depression on meds Tobaccoism declines Smoking cessation Trace edema rt ankle Uncertain if patient would tolerate Freddy hose-Lasix prn ordered-one dose ordered with improvement-resolved UTI with fever now afebrile on Vanco Check sensitivity-done Plan Continue PT/OT DR Barrios to see re cardiac meds with echo ordered-done appreciate his consult and f/u recheck labs-done Lasix times one done-edema improved Completed course of Flagyl for Cdif now on course of Vanco with meds adjusted to promote formed st F/U re sensitivity of Gram Negative rods.-done Apprediate DR sharp notes and orders Team Conference held yesterday-See report for full functional update and POC and ELOS Podiatry consult for diabetic foot care IRMA ESPINOZA MD Mar 24, 2016 11:58
--- NOTE | 2016-03-24 13:00 | Occupational Ther Daily Note ---
OT Current Status-Daily Note Subjective Pt sitting in commons area, agrees to treatment this am, no c/o pain. Pt happy to be out of isolation Mental Status/Objective Functional [place] Measure 0=Not Assessed/NA 4=Minimal Assistance 1=Total Assistance 5=Supervision or Setup 2=Maximal Assistance 6=Modified [place] 3=Moderate Assistance 7=Complete [place] ADL-Treatment Pt requests shower this am. Pt retrieved clothing from closet without assistance at w/c level. Doffed right shoe and sock without assistance. When pt was removing sock, toenail on right foot was bent back and began bleeding. RN was notified and stated she would dress it after pt was done with shower. Pt transferred w/c to shower bench with minimal assistance using grab bars. Pt able to wash all areas with SBA while seated. Weight shifting left and right to wash buttocks rather than standing to complete task. Pt fatigued with task, so w /c arm was removed and pt completed scoot pivot transfer back to w/c. UE dressing completed with modified independence. Pt donned underwear and pants with moderate assistance for standing for pant hike. Pt used grab bars for sit to stand and for balance during pant hike. RN placed dressing on toe after shower was completed. Grooming tasks completed with modified independence while seated at sink. Pt donned right sock after set up. Functional [place] Measure 0=Not Assessed/NA 4=Minimal Assistance 1=Total Assistance 5=Supervision or Setup 2=Maximal Assistance 6=Modified [place] 3=Moderate Assistance 7=Complete IndependenceIRFPAI Quality Coding Scale 6 Independent with activity with or without an assistive device 5 Patient requires set up or clean up by helper. Patient completes activity by themselves 4 Supervision or touching assist (CGA). [place] provide cues , steadying assist 3 The helper provides less than half the effort to complete the activity 2 The helper provides more than half the effort to complete the activity 1 Dependent. The helper does all the effort to complete an activity 7 Patient refused to complete or attempt activity 9 The patient did not perform the activity before the current illness or injury 88 Not attempted due to Medical conditions or safety concerns Grooming (FIM): 6 Bathing (FIM): 5 Upper Body (FIM): 6 Lower Body Dressing (FIM): 3 On/Off Footwear (QC): 5 Shower Transfer(FIM): 4 Other Treatment Pt performed bilateral UE exercises to promote increased strength needed for ADLs and transfers. Pt completed shoulder forward flexion, abduction, biceps curls, and triceps extension exercises x15 reps with 2# weights. Rest breaks between exercises. W/c mobility to therapy gym with increased time. Arm bike [id number] to increase overall strength and activity tolerance. Pt completed task with moderate resistance and steady pace. No rest breaks needed. Pt returned to room, sitting in w/c with needs met after session. OT Short Term Goals Short Term Goals Time Frame: Mar 17, 2016 Bathing(FIM): 4 Lower Body Dressing(FIM): 3 Toileting(FIM): 3 Toilet/Commode Transfer(FIM): 4 Shower Transfer(FIM): 3 Additional Short Term Goals: 1-Demonstrate ADL Tasks, 2-Verbalize Understanding , 3-ImproveStrength/Mahad 1=Demonstrate adherence to instructed precautions during ADL tasks. 2=Patient will verbalize/demonstrate understanding of assistive devices/ modifications for ADL. 3=Patient will improve strength/tolerance for activity to enable patient to perform ADL's. OT General Ophthalmologist Goals General Ophthalmologist Goals Time Frame: Mar 31, 2016 Eating (FIM): 6 Eating (QC): 6 Oral Hygiene (QC): 6 Grooming(FIM): 6 Bathing(FIM): 5 Shower/Bathe Self (QC): 4 Upper Body Dressing(FIM): 6 Upper Body Dressing (QC): 6 Lower Body Dressing(FIM): 5 Lower Body Dressing (QC): 4 On/Off Footwear (QC): 5 Toileting(FIM): 5 Toileting Hygiene (QC): 4 Toilet/Commode Transfer(FIM): 5 Toilet/Commode Transfer (QC): 4 Shower Transfer(FIM): 4 Additional Goals: 1-Demonstrate ADL Tasks, 2-Verbalize Understanding, 3- ImproveStrength/Mahad 1=Demonstrate adherence to instructed precautions during ADL tasks. 2=Patient will verbalize/demonstrate understanding of assistive devices/ modifications for ADL. 3=Patient will improve strength/tolerance for activity to enable patient to perform ADL's. OT Education/Plan Problem List/Assessment Pt demonstrates decreased mobility, strength, activity tolerance, and ADL performance. Pt to benefit from skilled OT intervention for ADL training, transfers, strengthening, adaptive equipment training as needed, and home safety education to maximize level of function and allow safe discharge. Discharge Recommendations Plan/Recommendations: Continue POC Treatment Plan/Plan of Care Patient would benefit from OT for education, treatment and training to promote independence in ADL's, mobility, safety and/or upper extremity function for ADL' s. Plan of Care: ADL Retraining, Functional Mobility, Group Exercise/Act as Ind, UE Funct Exercise/Act Treatment Duration: Mar 31, 2016 Visits Per Week: 10-11 Minutes/Day (M-F): 60-90 Minutes/Day (Sat/[place]): PRN Agreement: Yes Rehab Potential: Fair Time/GCodes Start Time: 09:15 Stop Time: 10:45 Total Time Billed (hr/min): 90 Billed Treatment Time 1 visit, ADLx4(60minutes), EXx2(30minutes) OLIVIA NELSON OT Mar 24, 2016 13:00
--- NOTE | 2016-03-24 13:30 | Physical Therapy Daily Note ---
PT Daily Note-Current Subjective Pt. states she is tired from AM Rxs. Agrees to therex and sit to stands Pain Numeric Pain Scale: 0-No Pain Mental Status Patient Orientation: Normal For Age Transfers Functional [place] Measure 0=Not Assessed/NA 4=Minimal Assistance 1=Total Assistance 5=Supervision or Setup 2=Maximal Assistance 6=Modified [place] 3=Moderate Assistance 7=Complete IndependenceIRFPAI Quality Coding Scale 6 Independent with activity with or without an assistive device 5 Patient requires set up or clean up by helper. Patient completes activity by themselves 4 Supervision or touching assist (CGA). [place] provide cues , steadying assist 3 The helper provides less than half the effort to complete the activity 2 The helper provides more than half the effort to complete the activity 1 Dependent. The helper does all the effort to complete an activity 7 Patient refused to complete or attempt activity 9 The patient did not perform the activity before the current illness or injury 88 Not attempted due to Medical conditions or safety concerns sit to stands x 4 with static and min dynamic stance for 30-40 sec ea trial Exercises Seated Therapy Exercises: Ankle pumps, Sit to stand, Long arc quads, Chair press-ups, Hip flexion, Hip abd/add, Glut set Seated Reps: 20 Assessment Current Status: Good Progress PT Short Term Goals Short Term Goals Time Frame: Mar 17, 2016 Gait (FIM): 1 Gait Distance Comment: 10' Gait Level of Assist: 4 Gait Assistive Device: FWW Wheelchair Distance: 150' PT Complaint Clerk Goals Complaint Clerk Goals PT Mcfp Goals Time Frame: Mar 31, 2016 Transfers (B,C,W/C) (FIM): 5 Sit to Lying (QC): 4 Lying-Sitting on Side/Bed(QC): 4 Sit to Stand (QC): 4 Rollin Roll Left to Right (QC): 4 Chair/[id number]-Zovzj Xfer(QC): 4 Car Transfer (QC): 4 Gait (FIM): 1 Distance: 20' Walk 10 feet (QC): 4 Walk 10ft-Uneven Surface(QC): 4 Walk 50ft with 2 Turns (QC): 88 Walk 150 ft (QC): 88 Gait Level of Assist: 5 Gait Assistive Device: FWW Wheelchair (FIM): 6 Distance: 150' Wheelchair Level of Assist: 6 Wheel 50 feet with 2 turns (QC: 6 Stairs (FIM): 2 # of Steps: 4 1 Step (curb) (QC): 4 4 Steps (QC): 4 12 Steps (QC): 88 Stairs Level Of Assist: 4 Picking up an Object (QC): 88 PT Plan Treatment/Plan Treatment Plan: Continue Plan of Care Treatment Plan: Bed Mobility, Education, Functional Activity Mahad, Functional Strength, Group Therapy, Gait, Safety, Therapeutic Exercise, Transfers Treatment Duration: Mar 31, 2016 Visits Per Week: 10-11 Minutes/Day (M-F): 60-90 Minutes/Day (Sat/[place]): 15-30 Time/GCodes Time In: 1140 Time Out: 1210 Total Billed Treatment Time: 30 Total Billed Treatment 1,EX15m,FA15m G Codes Necessary: MARINO Roca SENIOR GAME DESIGNER Mar 24, 2016 13:29
[2016-03-24] MEDS: oxyCODONE/APAP 5/325MG (PERCOCET 5) TABLET PO PRN ×2 (14:48→20:35)
--- NOTE | 2016-03-24 16:32 | Podiatry Progress Note ---
Standard Progress Note Progress Notes/Assess & Plan Progress/Assessment & Plan Consult dictated. Foot care given. She is to have wound care to the right 3rd digit daily. Final Diagnosis Onycholysis R3 digit Diabetic neuropathy Onychomycosis Arthrosclerosis TITO CALVERT DPM Mar 24, 2016 16:32
[2016-03-24 18:45] VITALS: BP 127/84
[2016-03-24] MEDS: ENOXAPARIN 40 MG/0.4 ML (LOVENOX) SYR SC SCH (20:34)
[2016-03-24] MEDS: inSUlin DETERMIR 1 UNIT/0.01 ML (LEVEMIR) CHARGE PER UNIT SQ SCH (20:35)
[2016-03-24] MEDS: ALPRAZolam 0.5 MG (XANAX) TAB PO PRN (20:35)
[2016-03-24] MEDS: MUPIROCIN 2% OINT 22 GM (BACTROBAN) TUBE TOP SCH (20:35)
[2016-03-24] MEDS: ATORVASTATIN 40 MG (LIPITOR) TABLET PO SCH (20:35)
[2016-03-25] MEDS: VANCOMYCIN ORAL 250 MG/5 ML 60 ML PO SCH ×8 (00:33→19:45)
[2016-03-25] MEDS: oxyCODONE/APAP 5/325MG (PERCOCET 5) TABLET PO PRN (00:39)
[2016-03-25] MEDS: inSUlin (REGULAR) HUMAN 1 UNIT/0.01 ML (CHARGE PER UNIT) SC SCH ×4 (05:18→21:34)
[2016-03-25 06:00] VITALS: BP 102/71
--- NOTE | 2016-03-25 08:00 | Progress Note (SOAP) ---
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 Last night leg gave out but no problem. Patient feeling better and doing more Objective Exam Vital Signs Date Time Temp Pulse Resp B/P Pulse Ox O2 Delivery O2 Flow Rate FiO2 03/25/16 06:00 96.8 83 22 102/71 99 Room Air 03/24/16 21:00 Room Air 03/24/16 18:45 97.3 81 16 127/84 97 03/24/16 09:00 Room Air I & O 03/25/16 07:00 Intake Total 1490 ml Balance 1490 ml Capillary Refill : Less Than 3 Seconds General Appearance: No Apparent Distress WD/WN HEENT: Normal ENT Inspection Neck: Normal Inspection Respiratory: Chest Non Tender Lungs Clear Normal Breath Sounds No Accessory Muscle Use No Respiratory Distress Cardiovascular: Regular Rate, Rhythm No Murmur Results Lab Laboratory Tests 03/24/16 11:13: Glucometer 209H 03/24/16 15:52: Glucometer 212H 03/24/16 20:03: Glucometer 158H 03/25/16 05:13: Glucometer 149H Microbiology 03/09/16 C. difficile GDH Antigen & Toxins - Final, Complete 03/22/16 Urine Culture - Final, Complete Pseudomonas Aeruginosa Yeast Species Assessment/Plan Assessment/Plan Assess & Plan/Chief Complaint left below the knee amputation. Diabetes. Peripheral vascular disease. Depression history. Hypertension history. . 03/11/16 left below knee amputation. Diabetes. Peripheral vascular disease. History of hypertension. C. difficile. Hypotensive. Health lisinopril. . Left knee below amputation. Diabetes. Peripheral vascular disease. History of atrial fibrillation. Patient in sinus rhythm. Hypotension. C. difficile. Diarrhea improving. . 03/15/16. Left below the knee amputation. Diabetes. Peripheral vascular disease. Depression history. Atrial fib. Blood pressure goodt and heart rate within normal limits. . 03/16/16. Left below the knee amputation. Peripheral vascular disease. Diabetes. C. difficile. History of atrial fibrillation. Diarrhea better. Potassium 3.3 Will replace. Patient has renal insufficiency. . 03/17/16. Left below the knee amputation. Diabetes. Peripheral vascular disease. Depression history. Patient doing better. Patient happy. Patient improving. . 03/18/16. Left below the knee amputation. Diabetes. 4 vascular disease. Depression history. UA shows infection. C. difficile. To put on antibiotics only for 2 days when get sensitivity. . 03/21/16. Left below the knee amputation. C. difficile. Stools are better. Diabetes. Peripheral vascular disease. To check UA tomorrow. . 02/3116. Left below the knee amputation. Diabetes. Peripheral vascular disease. Hypertension history. Patient doing better and happy. infection nitrate negative now done today. . 03/23/16. infection with different organism now. Waiting for sensitivity. Patient doing much better. Patient positive. Patient hopping 6 steps. Wound is healing. Patient in the right direction . 03/24/16. Left below the knee amputation. Diabetes. Peripheral vascular disease. Depression. Patient doing better. Patient improving. . 03/25/16 area Left below the knee amputation. Diabetes. Peripheral vascular disease. Depression. Patient is improving and feeling better about herself Diagnosis/Problems: Clinical Quality Measures DVT/VTE Risk/Contraindication: Risk Factor Score Per Nursin RFS Level Per Nursing on Admit: 4+=Very High URSULA RENEE DO Mar 25, 2016 07:59
--- NOTE | 2016-03-25 08:24 | Physical Therapy Daily Note ---
PT Daily Note-Current Subjective Pt. states she fell to her bottom yesterday with nursing during a TRF to toilet. States she is a little sore in her neck but feels ok overall .Agrees to Rx. 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 Patient completes activity by themselves 4 Supervision or touching assist (CGA). [place] provide cues , steadying assist 3 The helper provides less than half the effort to complete the activity 2 The helper provides more than half the effort to complete the activity 1 Dependent. The helper does all the effort to complete an activity 7 Patient refused to complete or attempt activity 9 The patient did not perform the activity before the current illness or injury 88 Not attempted due to Medical conditions or safety concerns Transfers (B, C, W/C) (FIM): 4 Scootin Rollin Supine to/from Sit: 5 Sit to/from Stand: 4 Bed to/from Chair: 4 Reviewed with pt. safe stand pivot transfers :TRF toward existing LE, brakes always on with surfaces positioned at 45 degree angles as close as possible using FWW for support, with hospital sock or shoe on Gait Training no walking this Rx as pt. had melting weak leg incident yesterday and has sore middle toe on existing foot from incident where toe nail was snagged off 2-2 Wheelchair Training Does the Pt Use a Wheelchair?: Yes Wheelchair (FIM): 5 Wheelchair Distance: 3=150 ft Wheelchair Level of Assist: 5 Type of Wheelchair: Manual up down ramp 25 to 30 ft x3, good technique Exercises Supine Ex: Bridging, Ankle pumps, Quad Set, Rolling, Glut sets, Heel Slides, Knee to chest, Short Arc Quads, Scooting, Straight leg raise, Hip abd/add Supine Reps: 15 sidelying and prone all x 12 Assessment Current Status: Good Progress improved w/c mobility PT Short Term Goals Short Term Goals Time Frame: Mar 17, 2016 Gait (FIM): 1 Gait Distance Comment: 10' Gait Level of Assist: 4 Gait Assistive Device: FWW Wheelchair Distance: 150' PT Bullet Lubricating Machine Operator Goals Bullet Lubricating Machine Operator Goals PT Correction Goals Time Frame: Mar 31, 2016 Transfers (B,C,W/C) (FIM): 5 Sit to Lying (QC): 4 Lying-Sitting on Side/Bed(QC): 4 Sit to Stand (QC): 4 Rollin Roll Left to Right (QC): 4 Chair/Exh-nr-Rpvsl Xfer(QC): 4 Car Transfer (QC): 4 Gait (FIM): 1 Distance: 20' Walk 10 feet (QC): 4 Walk 10ft-Uneven Surface(QC): 4 Walk 50ft with 2 Turns (QC): 88 Walk 150 ft (QC): 88 Gait Level of Assist: 5 Gait Assistive Device: FWW Wheelchair (FIM): 6 Distance: 150' Wheelchair Level of Assist: 6 Wheel 50 feet with 2 turns (QC: 6 Stairs (FIM): 2 # of Steps: 4 1 Step (curb) (QC): 4 4 Steps (QC): 4 12 Steps (QC): 88 Stairs Level Of Assist: 4 Picking up an Object (QC): 88 PT Plan Treatment/Plan Treatment Plan: Continue Plan of Care Treatment Plan: Bed Mobility, Education, Functional Activity Mahad, Functional Strength, Group Therapy, Gait, Safety, Therapeutic Exercise, Transfers Treatment Duration: Mar 31, 2016 Visits Per Week: 10-11 Minutes/Day (M-F): 60-90 Minutes/Day (Sat/[place]): 15-30 Safety Risks/Education Patient Education: Transfer Techniques, Issued Written HEP, Correct Positioning , W/C Management, Disease Process, Safety Issues Teaching Recipient: Patient Teaching Methods: Demonstration, Discussion Response to Teaching: Verbalize Understanding, Return Demonstration, Reinforcement Needed Time/GCodes Time In: 715 Time Out: 815 Total Billed Treatment Time: 60 Total Billed Treatment 1,FA25m,WCH 15m,EX20m G Codes Necessary: MARINO Roca UNIVERSITY PRESIDENT Mar 25, 2016 08:24
--- NOTE | 2016-03-25 08:36 | PM & R (SOAP) Progress Note ---
Subjective Subjective/Events-last exam Patient was seen on unit this AM Called by RN last evening re patient sliding to floor during an assisted transfer Patient c/o mid neck pain but did not hit her head Patient CGA for transfers DPM to see re Diabetic foot care Objective Exam Last Set of Vital Signs Vital Signs Date Time Temp Pulse Resp B/P Pulse Ox O2 Delivery O2 Flow Rate FiO2 03/25/16 06:00 96.8 83 22 102/71 99 Room Air Capillary Refill : Less Than 3 Seconds I&O Intake and Output 03/25/16 00:00 Intake Total 1510 ml Balance 1510 ml Intake Oral 1510 ml # Voids 7 # Bowel Movements 2 General: Alert, Oriented X3, Cooperative, No Acute Distress HEENT: Atraumatic Neck: Supple, No JVD, No Thyromegaly Lungs: Clear to Auscultation, Normal Air Movement Heart: Regular Rate, Normal S1, Normal S2, No Murmurs Abdomen: Normal Bowel Sounds, Soft, No Tenderness Extremities: No Clubbing, No Cyanosis Skin: No Rashes, No Breakdown, No Significant Lesion, Other (as per above healing well) Neuro: Normal Speech, Strength at 5/5 X4 Ext, Other (mild weakness RLE) Psych/Mental Status: Mental Status NL Results Lab Laboratory Tests 03/22/16 11:14: Glucometer 156H 03/22/16 16:03: Glucometer 206H 03/22/16 20:09: Glucometer 197H 03/23/16 04:56: Glucometer 181H 03/23/16 10:56: Glucometer 193H 03/23/16 17:21: Glucometer 210H 03/23/16 20:09: Glucometer 202H 03/24/16 06:09: Glucometer 181H 03/24/16 11:13: Glucometer 209H 03/24/16 15:52: Glucometer 212H 03/24/16 20:03: Glucometer 158H 03/25/16 05:13: Glucometer 149H Microbiology 03/09/16 C. difficile GDH Antigen & Toxins - Final, Complete 03/22/16 Urine Culture - Final, Complete Pseudomonas Aeruginosa Yeast Species Assessment/Plan Assessment Left BKA 02-01-16 OSH for gangrenous left foot Postop C DIF bowel colitis associated with sepsis treated at OSH-now on Vanco for ongoing treatment-improved Mild Hypokalemia Mild postop Anemia IDDM controlled HTN with hx of afib now sinus with hypotension depression on meds Tobaccoism declines Smoking cessation Trace edema rt ankle Uncertain if patient would tolerate Freddy hose-Lasix prn ordered-one dose ordered with improvement-resolved UTI with fever now afebrile on Vanco Check sensitivity-done Controlled descent to floor 03-24-16 Plan Continue PT/OT DR Barrios to see re cardiac meds with echo ordered-done appreciate his consult and f/u recheck labs-done Lasix times one done-edema improved Completed course of Flagyl for Cdif now on course of Vanco with meds adjusted to promote formed st F/U re sensitivity of Gram Negative rods.-done Apprediate DR sharp notes and orders Team Conference held 03-23-16-See report for full functional update and POC and [facility] Podiatry consult for diabetic foot care SW contacted me yesterday re letter to support additional financial assistance from [place] so that she may have a home to go to -signed Recheck with patient re resolution of neck pain IRMA ESPINOZA MD Mar 25, 2016 08:36
[2016-03-25] MEDS: fluCOnazole (DIFLUCAN) 100 MG TAB PO SCH (09:21)
[2016-03-25] MEDS: DULoxetine 30 MG (CYMBALTA) CAP PO SCH (09:21)
[2016-03-25] MEDS: GABAPENTIN 600 MG (NEURONTIN) TAB PO SCH ×3 (09:21→21:35)
[2016-03-25] MEDS: CIPROFLOXACIN 500 MG (CIPRO) TABLET PO SCH ×2 (09:21→21:35)
[2016-03-25] MEDS: FUROSEMIDE 20 MG (LASIX) TAB PO PRN (09:21)
[2016-03-25] MEDS: DILTIAZEM 30 MG (CARDIZEM) TAB PO SCH ×3 (09:21→21:35)
--- NOTE | 2016-03-25 09:33 | CONSULTATION REPORT ---
DATE OF CONSULTATION: 03/24/2016 REFERRING PHYSICIAN: Moni Mas DPM. REASON FOR CONSULT: Diabetic foot care. HISTORY OF PRESENT ILLNESS: This 55-year-old female was admitted for rehabilitation to [facility]. She had undergone below the knee amputation on 02/01/16 and was transferred to a [facility] admitting then was readmitted to [facility] apparently for an infection. She is currently under treatment with Flagyl for C. difficile bowel colitis. PHYSICAL EXAMINATION: This morning the patient was going to shower and after she pulled off her sock, she noted some bleeding to the right 3rd toe. Nursing staff applied antibiotic and a light dressing to the area and had consulted for evaluation and treatment. PAST MEDICAL HISTORY: 1. Also includes insulin-dependent diabetes. 2. Depression. 3. Hypertension. 4. 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 PAST SURGICAL HISTORY: 1. Include the above-mentioned below the knee amputation. 2. Tonsillectomy. 3. section. ALLERGIES: She is allergic to tetanus toxoid. FAMILY HISTORY: Noncontributory. SOCIAL HISTORY: She is lives in [place], [place] with her spouse. There is a history of tobacco use. CURRENT MEDICATIONS: Listed on the patient's chart. PHYSICAL EXAM: This is a well-developed female in no apparent distress. She is currently afebrile. She has 1/4 dorsalis pedis pulse on the right, 0/4 posterior tibial pulse on the right. Capillary fill time is less than 3 seconds to the hallux. NEUROLOGICALLY: The patient has diminished protective sensation per 10 grams monofilament wire examination on the right, diminished deep tendon reflexes and vibratory sensation on the right. DERMATOLOGICALLY: She has thick, yellow dystrophic toenails with subungual debris, associated with all 5 toenails on the right however, there is a very loose R3 toenail with minimal proximal attachment there is some evidence of previous bleeding to the nail bed but no active bleeders noted at this time and no erythema, no proximal streaking. MUSCULOSKELETAL FINDINGS: The patient has a ohhwo-oau-yavr amputation of the left lower extremity. ASSESSMENT: 1. Diabetic neuropathy. 2. Onychomycosis. 3. Onycholysis due to trauma R3 toe. PLAN: The loose toenail was debrided, the nail bed was cleansed after which Silvadene cream and a dressing was applied. We will have the nursing staff continue with wound care until completely healed, which I expect will be a couple weeks of wound care. The rest of the toenails were debrided manually and mechanically. Betadine applied. We discussed the generalized diabetic foot care and the need to follow-up with a auto tester once she goes through rehab and is discharged home. Job ID: [id number] Dictated Date: 03/24/2016 16:30:22 Inhalation Therapy Teacher Date: 03/25/2016 09:22:02/mona
[2016-03-25] MEDS: MUPIROCIN 2% OINT 22 GM (BACTROBAN) TUBE TOP SCH ×2 (10:23→21:34)
--- NOTE | 2016-03-25 11:19 | Occupational Ther Daily Note ---
OT Current Status-Daily Note Subjective Pt sitting in w/c, agrees to treatment. Pt reports some stiffness in neck today. Mental Status/Objective Functional [place] Measure 0=Not Assessed/NA 4=Minimal Assistance 1=Total Assistance 5=Supervision or Setup 2=Maximal Assistance 6=Modified [place] 3=Moderate Assistance 7=Complete [place] ADL-Treatment Pt requests to get dressed this morning. Don pullover shirt with modified independence. Pt able to don pants with assist to pull up on left side during pant hike. Toilet transfer completed with minimal assistance using FWW. Pt able to pull pants down and complete toileting hygiene without assistance, but requires assist to pull pants back up. Transfer back to w/c with CGA. Functional [place] Measure 0=Not Assessed/NA 4=Minimal Assistance 1=Total Assistance 5=Supervision or Setup 2=Maximal Assistance 6=Modified [place] 3=Moderate Assistance 7=Complete IndependenceIRFPAI Quality Coding Scale 6 Independent with activity with or without an assistive device 5 Patient requires set up or clean up by helper. Patient completes activity by themselves 4 Supervision or touching assist (CGA). [place] provide cues , steadying assist 3 The helper provides less than half the effort to complete the activity 2 The helper provides more than half the effort to complete the activity 1 Dependent. The helper does all the effort to complete an activity 7 Patient refused to complete or attempt activity 9 The patient did not perform the activity before the current illness or injury 88 Not attempted due to Medical conditions or safety concerns Toileting (FIM): 3 Toilet/Commode Transfer (FIM): 4 Other Treatment Pt performed w/c mobility to therapy gym without assistance. Pt performed bilateral UE exercises to increase strength needed for ADLs and transfers. Pt performed shoulder flexion, forward press, biceps curls, and wrist flex/ extension x20 reps with 2# dowel sandra. Arm bike x12 minutes to increase overall strength and activity tolerance. Pt performed task with moderate resistance and steady pace. No rest breaks needed. Peg activity completed with bilateral UE with 2# weights in place to increase strength and fine motor control. Graded clothespin activity with bilateral hands to increase printed circuit board assembly repairer/pinch strength. Pt returned to room, sitting in w/c with needs met after session. OT Short Term Goals Short Term Goals Time Frame: Mar 17, 2016 Bathing(FIM): 4 Lower Body Dressing(FIM): 3 Toileting(FIM): 3 Toilet/Commode Transfer(FIM): 4 Shower Transfer(FIM): 3 Additional Short Term Goals: 1-Demonstrate ADL Tasks, 2-Verbalize Understanding , 3-ImproveStrength/Mahad 1=Demonstrate adherence to instructed precautions during ADL tasks. 2=Patient will verbalize/demonstrate understanding of assistive devices/ modifications for ADL. 3=Patient will improve strength/tolerance for activity to enable patient to perform ADL's. OT Jail Goals Acid Loader Goals Time Frame: Mar 31, 2016 Eating (FIM): 6 Eating (QC): 6 Oral Hygiene (QC): 6 Grooming(FIM): 6 Bathing(FIM): 5 Shower/Bathe Self (QC): 4 Upper Body Dressing(FIM): 6 Upper Body Dressing (QC): 6 Lower Body Dressing(FIM): 5 Lower Body Dressing (QC): 4 On/Off Footwear (QC): 5 Toileting(FIM): 5 Toileting Hygiene (QC): 4 Toilet/Commode Transfer(FIM): 5 Toilet/Commode Transfer (QC): 4 Shower Transfer(FIM): 4 Additional Goals: 1-Demonstrate ADL Tasks, 2-Verbalize Understanding, 3- ImproveStrength/Mahad 1=Demonstrate adherence to instructed precautions during ADL tasks. 2=Patient will verbalize/demonstrate understanding of assistive devices/ modifications for ADL. 3=Patient will improve strength/tolerance for activity to enable patient to perform ADL's. OT Education/Plan Problem List/Assessment Pt demonstrates decreased mobility, strength, activity tolerance, and ADL performance. Pt to benefit from skilled OT intervention for ADL training, transfers, strengthening, adaptive equipment training as needed, and home safety education to maximize level of function and allow safe discharge. Discharge Recommendations Plan/Recommendations: Continue POC Treatment Plan/Plan of Care Patient would benefit from OT for education, treatment and training to promote independence in ADL's, mobility, safety and/or upper extremity function for ADL' s. Plan of Care: ADL Retraining, Functional Mobility, Group Exercise/Act as Ind, UE Funct Exercise/Act Treatment Duration: Mar 31, 2016 Visits Per Week: 10-11 Minutes/Day (M-F): 60-90 Minutes/Day (Sat/[place]): PRN Agreement: Yes Rehab Potential: Fair Time/GCodes Start Time: 09:00 Stop Time: 10:00 Total Time Billed (hr/min): 60 Billed Treatment Time 1 visit, ADL(20minutes), EXx3(40minutes) OLIVIA NELSON OT Mar 25, 2016 11:18
--- NOTE | 2016-03-25 14:22 | Therapy Group Daily Note ---
Therapy Daily Group Note Other/Notes Each patient was brought to group, if they could ambulate they were brought that way and if they couldn't then they came by wheelchair. At group each patient had to state their name, where they were from and recall an interesting fact about their past. Then patients were oriented to the rehab floor by discussing the roles of each discipline of therapy, how many minutes are required, etc. Then, each patient participated in a group game/activity that involves memory, critical thinking, and cooperation. The group also had to stop occasionally for upper and lower extremity seated exercises. After group was over each patient was transported back to their room. Start Time: 13:00 Stop Time: 14:00 Total Billed Treatment Time: 60 Total Billed Treatment 1 visit GRP 60 min GEM DANIELSON PT Mar 25, 2016 14:22
[2016-03-25 18:00] VITALS: BP 102/60
[2016-03-25] MEDS: ENOXAPARIN 40 MG/0.4 ML (LOVENOX) SYR SC SCH (21:33)
[2016-03-25] MEDS: inSUlin DETERMIR 1 UNIT/0.01 ML (LEVEMIR) CHARGE PER UNIT SQ SCH (21:34)
[2016-03-25] MEDS: ATORVASTATIN 40 MG (LIPITOR) TABLET PO SCH (21:34)
[2016-03-25] MEDS: ALPRAZolam 0.5 MG (XANAX) TAB PO PRN (21:35)
[2016-03-26] MEDS: oxyCODONE/APAP 5/325MG (PERCOCET 5) TABLET PO PRN ×2 (00:22→21:39)
[2016-03-26 05:00] VITALS: BP 112/74
[2016-03-26] MEDS: inSUlin (REGULAR) HUMAN 1 UNIT/0.01 ML (CHARGE PER UNIT) SC SCH ×4 (07:58→21:39)
[2016-03-26] MEDS: fluCOnazole (DIFLUCAN) 100 MG TAB PO SCH (09:13)
[2016-03-26] MEDS: DULoxetine 30 MG (CYMBALTA) CAP PO SCH (09:13)
[2016-03-26] MEDS: DILTIAZEM 30 MG (CARDIZEM) TAB PO SCH ×3 (09:14→21:38)
[2016-03-26] MEDS: FUROSEMIDE 20 MG (LASIX) TAB PO PRN (09:14)
[2016-03-26] MEDS: GABAPENTIN 600 MG (NEURONTIN) TAB PO SCH ×3 (09:14→21:38)
[2016-03-26] MEDS: CIPROFLOXACIN 500 MG (CIPRO) TABLET PO SCH ×2 (09:14→21:39)
[2016-03-26] MEDS: MUPIROCIN 2% OINT 22 GM (BACTROBAN) TUBE TOP SCH ×2 (10:15→21:40)
--- NOTE | 2016-03-26 10:26 | Physical Therapy Daily Note ---
PT Daily Note-Current Subjective Anxious to work. Family present and eager to watch and supportive of pt Pain Numeric Pain Scale: 0-No Pain Mental Status Patient Orientation: Normal For Age Transfers Functional [place] Measure 0=Not Assessed/NA 4=Minimal Assistance 1=Total Assistance 5=Supervision or Setup 2=Maximal Assistance 6=Modified [place] 3=Moderate Assistance 7=Complete IndependenceIRFPAI Quality Coding Scale 6 Independent with activity with or without an assistive device 5 Patient requires set up or clean up by helper. Patient completes activity by themselves 4 Supervision or touching assist (CGA). [place] provide cues , steadying assist 3 The helper provides less than half the effort to complete the activity 2 The helper provides more than half the effort to complete the activity 1 Dependent. The helper does all the effort to complete an activity 7 Patient refused to complete or attempt activity 9 The patient did not perform the activity before the current illness or injury 88 Not attempted due to Medical conditions or safety concerns Transfers (B, C, W/C) (FIM): 4 Scootin Rollin Supine to/from Sit: 5 Sit to/from Stand: 5 Bed to/from Chair: 4 Gait Training Does the Patient Walk?: Yes Gait (FIM): 1 (12ftx3) Distance (FIM): 1=up to 49 ft (12ftx3) Gait Level of Assist: 4 Gait Persons Needed: 1 Gait Assistive Device: FWW Wheelchair Training Does the Pt Use a Wheelchair?: Yes Wheelchair (FIM): 5 Wheelchair Distance: 3=150 ft Wheelchair Level of Assist: 5 Type of Wheelchair: Manual Exercises Supine Ex: Bridging, Ankle pumps, Quad Set, Rolling, Glut sets, Heel Slides, Short Arc Quads, Scooting, Straight leg raise, Hip abd/add Supine Reps: 15 Treatments sidelying hip abd and extension, prone hip ext and hamcurls x15 ea, attempted but unable to get in quadruped Assessment Current Status: Good Progress PT Short Term Goals Short Term Goals Time Frame: Mar 17, 2016 Gait (FIM): 1 Gait Distance Comment: 10' Gait Level of Assist: 4 Gait Assistive Device: FWW Wheelchair Distance: 150' PT Bmx Rider Goals Bmx Rider Goals PT Bmx Rider Goals Time Frame: Mar 31, 2016 Transfers (B,C,W/C) (FIM): 5 Sit to Lying (QC): 4 Lying-Sitting on Side/Bed(QC): 4 Sit to Stand (QC): 4 Rollin Roll Left to Right (QC): 4 Chair/Ntp-og-Lfwev Xfer(QC): 4 Car Transfer (QC): 4 Gait (FIM): 1 Distance: 20' Walk 10 feet (QC): 4 Walk 10ft-Uneven Surface(QC): 4 Walk 50ft with 2 Turns (QC): 88 Walk 150 ft (QC): 88 Gait Level of Assist: 5 Gait Assistive Device: FWW Wheelchair (FIM): 6 Distance: 150' Wheelchair Level of Assist: 6 Wheel 50 feet with 2 turns (QC: 6 Stairs (FIM): 2 # of Steps: 4 1 Step (curb) (QC): 4 4 Steps (QC): 4 12 Steps (QC): 88 Stairs Level Of Assist: 4 Picking up an Object (QC): 88 PT Plan Treatment/Plan Treatment Plan: Continue Plan of Care Treatment Plan: Bed Mobility, Education, Functional Activity Mahad, Functional Strength, Group Therapy, Gait, Safety, Therapeutic Exercise, Transfers Treatment Duration: Mar 31, 2016 Visits Per Week: 10-11 Minutes/Day (M-F): 60-90 Minutes/Day (Sat/[place]): 15-30 Safety Risks/Education Patient Education: Gait Training, Transfer Techniques, Correct Positioning, W/ C Management, Disease Process, Safety Issues Teaching Recipient: Patient, Family Teaching Methods: Demonstration, Discussion Response to Teaching: Verbalize Understanding, Return Demonstration, Reinforcement Needed observed and assisted a little with toileting and TRFs, observed gait and wch training Time/GCodes Time In: 840 Time Out: 910 Total Billed Treatment Time: 30 Total Billed Treatment 1,EX15,GT15 G Codes Necessary: MARINO Roca WAREHOUSE PULLER Mar 26, 2016 10:26
--- NOTE | 2016-03-26 17:22 | Wound Care Progress Note ---
Subjective Subjective Subjective/Events-last exam 55 year old female with pressure injury of sacral area, now resolved and pressure inure of L anterior knee area, improving. No new c/o. Has toe ulcer treated buy Dr. Mas. PMFSH: No interval change. Review of Systems Pulmonary: No Dyspnea Cardiovascular: No: Chest Pain Integumentary -- Wounds of sacrum, L knee. Healing L BKA incision. Psych -- Some depression, anxious. Objective Exam Last Set of Vital Signs Vital Signs Date Time Temp Pulse Resp B/P Pulse Ox O2 Delivery O2 Flow Rate FiO2 03/26/16 05:00 97.4 95 18 112/74 98 Room Air Capillary Refill : Less Than 3 Seconds I&O Intake and Output 03/26/16 00:00 Intake Total 1720 ml Output Total 550 ml Balance 1170 ml Intake Oral 1720 ml Output Urine Total 550 ml # Voids 7 # Bowel Movements 1 General: Alert, No Acute Distress Lungs: Normal Air Movement Skin: Other (Sacral wounds resolved; L knee, stable eschar, 1.0 x 1.4 x 0.1 cm , min. drainage.) Results Lab Laboratory Tests 03/25/16 20:27: Glucometer 225H 03/26/16 06:02: Glucometer 182H 03/26/16 10:28: Glucometer 232H 03/26/16 15:59: Glucometer 176H Microbiology 03/09/16 C. difficile GDH Antigen & Toxins - Final, Complete 03/22/16 Urine Culture - Final, Complete Pseudomonas Aeruginosa Yeast Species Assessment/Plan Assessment/Plan Assessment/Plan 1. Pressure ulcer, sacrum, Stage 3 resolved. 2. Pressure ulcer R anterior knee, unstageable. 3. S/P L BKA with healing wound. Plan: Continue Taya's to sacrum, BFD to L knee. QUINN HAWK MD Mar 26, 2016 17:22
[2016-03-26 18:03] VITALS: BP 107/74
[2016-03-26] MEDS: ENOXAPARIN 40 MG/0.4 ML (LOVENOX) SYR SC SCH (21:38)
[2016-03-26] MEDS: ATORVASTATIN 40 MG (LIPITOR) TABLET PO SCH (21:38)
[2016-03-26] MEDS: inSUlin DETERMIR 1 UNIT/0.01 ML (LEVEMIR) CHARGE PER UNIT SQ SCH (21:39)
[2016-03-26] MEDS: ALPRAZolam 0.5 MG (XANAX) TAB PO PRN (21:39)
[2016-03-27 05:25] VITALS: BP 118/68
[2016-03-27] MEDS: inSUlin (REGULAR) HUMAN 1 UNIT/0.01 ML (CHARGE PER UNIT) SC SCH ×4 (06:00→22:02)
[2016-03-27] MEDS: oxyCODONE/APAP 5/325MG (PERCOCET 5) TABLET PO PRN ×2 (08:12→18:05)
[2016-03-27] MEDS: DULoxetine 30 MG (CYMBALTA) CAP PO SCH (08:12)
[2016-03-27] MEDS: fluCOnazole (DIFLUCAN) 100 MG TAB PO SCH (08:12)
[2016-03-27] MEDS: GABAPENTIN 600 MG (NEURONTIN) TAB PO SCH ×3 (08:12→20:49)
[2016-03-27] MEDS: DILTIAZEM 30 MG (CARDIZEM) TAB PO SCH ×3 (08:12→20:49)
[2016-03-27] MEDS: MUPIROCIN 2% OINT 22 GM (BACTROBAN) TUBE TOP SCH ×2 (16:31→20:50)
[2016-03-27 18:00] VITALS: BP 124/83
[2016-03-27] MEDS: ATORVASTATIN 40 MG (LIPITOR) TABLET PO SCH (20:49)
[2016-03-27] MEDS: DICLOFENAC 1% GEL 100 GM (VOLTAREN) TUBE TOP PRN (20:50)
[2016-03-27] MEDS: ENOXAPARIN 40 MG/0.4 ML (LOVENOX) SYR SC SCH (20:54)
[2016-03-27] MEDS: inSUlin DETERMIR 1 UNIT/0.01 ML (LEVEMIR) CHARGE PER UNIT SQ SCH (20:55)
[2016-03-28 06:00] VITALS: BP 97/68
[2016-03-28] MEDS: inSUlin (REGULAR) HUMAN 1 UNIT/0.01 ML (CHARGE PER UNIT) SC SCH ×4 (06:00→20:29)
--- NOTE | 2016-03-28 08:14 | Physical Therapy Daily Note ---
PT Daily Note-Current Subjective Pt. states she is ready to go and feels good after a nice weekend with her family here. "just a little achiness in my joints" Mental Status Patient Orientation: Normal For Age Transfers Functional [place] Measure 0=Not Assessed/NA 4=Minimal Assistance 1=Total Assistance 5=Supervision or Setup 2=Maximal Assistance 6=Modified [place] 3=Moderate Assistance 7=Complete IndependenceIRFPAI Quality Coding Scale 6 Independent with activity with or without an assistive device 5 Patient requires set up or clean up by helper. Patient completes activity by themselves 4 Supervision or touching assist (CGA). [place] provide cues , steadying assist 3 The helper provides less than half the effort to complete the activity 2 The helper provides more than half the effort to complete the activity 1 Dependent. The helper does all the effort to complete an activity 7 Patient refused to complete or attempt activity 9 The patient did not perform the activity before the current illness or injury 88 Not attempted due to Medical conditions or safety concerns Transfers (B, C, W/C) (FIM): 5 Scootin Rollin Supine to/from Sit: 6 Sit to/from Stand: 5 Bed to/from Chair: 5 needs CGA buzz towards affected residual limb Gait Training Does the Patient Walk?: Yes Gait (FIM): 1 Distance (FIM): 1=up to 49 ft (25x3) Gait Level of Assist: 4 Gait Persons Needed: 1 Gait Assistive Device: FWW w/c close behind, foot scoots along floor at times with poor clearance when pt. is fatigued Wheelchair Training Does the Pt Use a Wheelchair?: Yes Wheelchair (FIM): 5 Wheelchair Distance: 3=150 ft (x3) Wheelchair Level of Assist: 5 Type of Wheelchair: Manual up down grades with good control Exercises Supine Ex: Bridging, Ankle pumps, Quad Set, Rolling, Glut sets, Heel Slides, Short Arc Quads, Scooting, Straight leg raise, Hip abd/add Supine Reps: 15 sidelying and prone all x15 for ham curls, hip extension and gluts Treatments SPTS left and right and managing w/c brakes from chair and turning chair while sitting in arm chair to get it near unaffected LE Assessment Current Status: Good Progress PT Short Term Goals Short Term Goals Time Frame: Mar 17, 2016 Gait (FIM): 1 Gait Distance Comment: 10' Gait Level of Assist: 4 Gait Assistive Device: FWW Wheelchair Distance: 150' PT Jail Goals Jail Goals PT Jail Goals Time Frame: Mar 31, 2016 Transfers (B,C,W/C) (FIM): 5 Sit to Lying (QC): 4 Lying-Sitting on Side/Bed(QC): 4 Sit to Stand (QC): 4 Rollin Roll Left to Right (QC): 4 Chair/Nxx-zg-[place] Xfer(QC): 4 Car Transfer (QC): 4 Gait (FIM): 1 Distance: 20' Walk 10 feet (QC): 4 Walk 10ft-Uneven Surface(QC): 4 Walk 50ft with 2 Turns (QC): 88 Walk 150 ft (QC): 88 Gait Level of Assist: 5 Gait Assistive Device: FWW Wheelchair (FIM): 6 Distance: 150' Wheelchair Level of Assist: 6 Wheel 50 feet with 2 turns (QC: 6 Stairs (FIM): 2 # of Steps: 4 1 Step (curb) (QC): 4 4 Steps (QC): 4 12 Steps (QC): 88 Stairs Level Of Assist: 4 Picking up an Object (QC): 88 PT Plan Treatment/Plan Treatment Plan: Continue Plan of Care Treatment Plan: Bed Mobility, Education, Functional Activity Mahad, Functional Strength, Group Therapy, Gait, Safety, Therapeutic Exercise, Transfers Treatment Duration: Mar 31, 2016 Visits Per Week: 10-11 Minutes/Day (M-F): 60-90 Minutes/Day (Sat/[place]): 15-30 Safety Risks/Education Patient Education: Gait Training, Transfer Techniques, Correct Positioning, W/ C Management, Disease Process, Safety Issues Teaching Recipient: Patient Teaching Methods: Demonstration, Discussion Response to Teaching: Verbalize Understanding, Reinforcement Needed Time/GCodes Time In: 715 Time Out: 815 Total Billed Treatment Time: 60 Total Billed Treatment 1,EX25m,FA20m,GT15m G Codes Necessary: MARINO Roca BLADE BENDER FURNACE TENDER Mar 28, 2016 08:14
--- NOTE | 2016-03-28 08:19 | Progress Note (SOAP) ---
Subjective Subjective/Events-last exam patient feeling better.. Ulcers are healing. No not infected. Pressure ulcers better. Patient in sinus rhythm Check urine today Objective Exam Vital Signs Date Time Temp Pulse Resp B/P Pulse Ox O2 Delivery O2 Flow Rate FiO2 03/28/16 06:00 96.5 97 20 97/68 98 Room Air 03/27/16 18:00 98.0 93 20 124/83 96 Room Air 03/27/16 09:00 Room Air I & O 03/28/16 07:00 Intake Total 1450 ml Balance 1450 ml Capillary Refill : Less Than 3 Seconds General Appearance: No Apparent Distress WD/WN HEENT: Normal ENT Inspection Neck: Normal Inspection Respiratory: Chest Non Tender Lungs Clear Normal Breath Sounds No Accessory Muscle Use No Respiratory Distress Cardiovascular: Regular Rate, Rhythm No Murmur Gastrointestinal: non tender soft Extremity: Other (amputated leg) Results Lab Laboratory Tests 03/27/16 11:41: Glucometer 189H 03/27/16 16:23: Glucometer 228H 03/27/16 21:13: Glucometer 237H 03/28/16 05:21: Glucometer 196H Microbiology 03/09/16 C. difficile GDH Antigen & Toxins - Final, Complete 03/22/16 Urine Culture - Final, Complete Pseudomonas Aeruginosa Yeast Species Assessment/Plan Assessment/Plan Assess & Plan/Chief Complaint left below the knee amputation. Diabetes. Peripheral vascular disease. Depression history. Hypertension history. . 03/11/16 left below knee amputation. Diabetes. Peripheral vascular disease. History of hypertension. C. difficile. Hypotensive. Health lisinopril. . Left knee below amputation. Diabetes. Peripheral vascular disease. History of atrial fibrillation. Patient in sinus rhythm. Hypotension. C. difficile. Diarrhea improving. . 03/15/16. Left below the knee amputation. Diabetes. Peripheral vascular disease. Depression history. Atrial fib. Blood pressure goodt and heart rate within normal limits. . 03/16/16. Left below the knee amputation. Peripheral vascular disease. Diabetes. C. difficile. History of atrial fibrillation. Diarrhea better. Potassium 3.3 Will replace. Patient has renal insufficiency. . 03/17/16. Left below the knee amputation. Diabetes. Peripheral vascular disease. Depression history. Patient doing better. Patient happy. Patient improving. . 03/18/16. Left below the knee amputation. Diabetes. 4 vascular disease. Depression history. UA shows infection. C. difficile. To put on antibiotics only for 2 days when get sensitivity. . 03/21/16. Left below the knee amputation. C. difficile. Stools are better. Diabetes. Peripheral vascular disease. To check UA tomorrow. . 02/3116. Left below the knee amputation. Diabetes. Peripheral vascular disease. Hypertension history. Patient doing better and happy. infection nitrate negative now done today. . 03/23/16. infection with different organism now. Waiting for sensitivity. Patient doing much better. Patient positive. Patient hopping 6 steps. Wound is healing. Patient in the right direction . 03/24/16. Left below the knee amputation. Diabetes. Peripheral vascular disease. Depression. Patient doing better. Patient improving. . 03/25/16 area Left below the knee amputation. Diabetes. Peripheral vascular disease. Depression. Patient is improving and feeling better about herself. . 03/28/16. Left below the knee amputation. Diabetes under better control. Peripheral vascular disease. infection to check urine today. Depression history. Hypertension Diagnosis/Problems: Clinical Quality Measures DVT/VTE Risk/Contraindication: Risk Factor Score Per Nursin RFS Level Per Nursing on Admit: 4+=Very High URSULA RENEE DO Mar 28, 2016 08:19
--- NOTE | 2016-03-28 09:09 | Cardiology Progress Note ---
Subjective Subjective/Events-last exam Patient sitting up in chair. Complains of increased swelling in right foot. Denies any CP or dyspnea. Review of Systems General: No Night Sweats, No Fatigue, No Malaise HEENT: No Visual Changes, No Dysphasia, No Sore Throat Pulmonary: No Dyspnea, No Cough, No Pleuritic Chest Pain Cardiovascular: No: Chest Pain, Edema, Palpitations, Paroxysmal Noc. Dyspnea Gastrointestinal: No: Abdominal Pain, Nausea, Vomiting Genitourinary: No Dysuria, No Frequency Musculoskeletal: No: back pain, neck pain Neurological: No: Change in speech, Confusion, Numbness, Weakness Objective-Cardiology Exam Last Set of Vital Signs Vital Signs 03/28/16 06:00 Temp 96.5 Pulse 97 Resp 20 B/P 97/68 Pulse Ox 98 O2 Delivery Room Air Capillary Refill : Less Than 3 Seconds I&O Intake and Output 03/28/16 00:00 Intake Total 1300 ml Balance 1300 ml Intake Oral 1300 ml # Voids 5 General: Alert, No Acute Distress HEENT: Atraumatic Neck: Supple, No JVD, No Thyromegaly Lungs: Normal Air Movement Heart: Regular Rate, Normal S1, Normal S2, No Murmurs Abdomen: Normal Bowel Sounds, Soft, No Tenderness Extremities: No Clubbing, No Cyanosis Skin: Other (Sacral wounds resolved; L knee, stable eschar, 1.0 x 1.4 x 0.1 cm , min. drainage.) Neuro: Normal Speech, Strength at 5/5 X4 Ext, Other (mild weakness RLE) Psych/Mental Status: Mental Status NL A/P-Cardiology Admission Diagnosis Hypotension Paroxysmal atrial fibrillation Hyperlipidemia Peripheral arterial disease Diabetes mellitus Assessment/Plan Hypotension, probably secondary to hypovolemia in addition to her aggressive antihypertensive medications. Stay off XOCHITL inhibitor, continue on Cardizem and monitor blood pressure. Paroxysmal atrial fibrillation, reporting episode of atrial fibrillation during her hospital stay in January at [facility]. She is not on oral anticoagulation, no signs of bleeding. Probably transient episode of atrial fibrillation. She denied any previous history prior to her surgery. No syncope was reported. Currently in sinus rhythm. Continue to monitor C. difficile colitis, still having diarrhea, had low-grade fever, treated by primary care physician, I will evaluate CBC and metabolic profile UTI- management by medical services History of hypertension, status post hypotension, blood pressure is better. Continue to monitor Peripheral arterial disease, extensive, continue to monitor closely. Patient complaining of RLE claudication pain, increased edema in right foot. 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 Anemia, monitor H&H Hyperlipidemia, maintained on Lipitor. Monitor lipids Diabetes mellitus, followed and managed by primary care physician Tobaccoism, educated in length on smoking cessation Depression, anxiety. Managed by primary care physician Debility, receiving physical therapy Clinical Quality Measures DVT/VTE Risk/Contraindication: Risk Factor Score Per Nursin RFS Level Per Nursing on Admit: 4+=Very High LINH WALLACE Mar 28, 2016 09:08
[2016-03-28] MEDS: DULoxetine 30 MG (CYMBALTA) CAP PO SCH (09:35)
[2016-03-28] MEDS: GABAPENTIN 600 MG (NEURONTIN) TAB PO SCH ×3 (09:36→20:28)
[2016-03-28] MEDS: MUPIROCIN 2% OINT 22 GM (BACTROBAN) TUBE TOP SCH ×2 (09:36→20:29)
[2016-03-28] MEDS: DILTIAZEM 30 MG (CARDIZEM) TAB PO SCH ×3 (09:36→20:28)
--- NOTE | 2016-03-28 10:04 | Cardiology Progress Note ---
Subjective Subjective/Events-last exam patient is sitting up in a chair, complaining of mild edema in her right leg. Denied any chest pain. Review of Systems General: No Chills, No Night Sweats, No Fatigue, No Malaise, No Appetite, No Other HEENT: No Head Aches, No Visual Changes, No Eye Pain, No Ear Pain, No Dysphasia , No Sinus Congestion, No Post Nasal Drip, No Sore Throat, No Other Pulmonary: No Dyspnea, No Cough, No Pleuritic Chest Pain, No Other Objective-Cardiology Exam Last Set of Vital Signs Vital Signs 03/28/16 06:00 Temp 96.5 Pulse 97 Resp 20 B/P 97/68 Pulse Ox 98 O2 Delivery Room Air Capillary Refill : Less Than 3 Seconds I&O Intake and Output 03/28/16 00:00 Intake Total 1300 ml Balance 1300 ml Intake Oral 1300 ml # Voids 5 General: Alert, No Acute Distress HEENT: Atraumatic Neck: Supple, No JVD, No Thyromegaly Lungs: Normal Air Movement Heart: Regular Rate, Normal S1, Normal S2, No Murmurs Abdomen: Normal Bowel Sounds, Soft, No Tenderness Extremities: No Clubbing, No Cyanosis Skin: Other (Sacral wounds resolved; L knee, stable eschar, 1.0 x 1.4 x 0.1 cm , min. drainage.) Neuro: Normal Speech, Strength at 5/5 X4 Ext, Other (mild weakness RLE) Psych/Mental Status: Mental Status NL Results Lab Laboratory Tests Test 03/27/16 11:41 03/27/16 16:23 03/27/16 21:13 03/28/16 05:21 Range/Units Glucometer 189 H 228 H 237 H 196 H 70-110 MG/DL A/P-Cardiology Admission Diagnosis Hypotension Paroxysmal atrial fibrillation Hyperlipidemia Peripheral arterial disease Diabetes mellitus Assessment/Plan Hypotension, multifactorial, improving, now borderline hypotensive. Continue to monitor. I will evaluate carotid ultrasound and ROSIE. Right leg swelling, extensive peripheral arterial disease, I will evaluate ROSIE Paroxysmal atrial fibrillation, reporting episode of atrial fibrillation during her hospital stay in January at [facility]. She is not on oral anticoagulation, no signs of bleeding. Probably transient episode of atrial fibrillation. She denied any previous history prior to her surgery. No syncope was reported. Currently in sinus rhythm. Continue to monitor C. difficile colitis, improved, off isolation at this time. Continue to monitor Peripheral arterial disease, extensive, continue to monitor closely. Patient complaining of RLE claudication pain, increased edema in right foot. I will evaluate ROSIE Status post left BKA done in January 2016 secondary to nonhealing ulcer with extensive peripheral arterial disease. Anemia, monitor H&H Hyperlipidemia, maintained on Lipitor. Monitor lipids Diabetes mellitus, followed and managed by primary care physician Tobaccoism, educated in length on smoking cessation Depression, anxiety. Managed by primary care physician Debility, receiving physical therapy Clinical Quality Measures DVT/VTE Risk/Contraindication: Risk Factor Score Per Nursin RFS Level Per Nursing on Admit: 4+=Very High MILADY SHANNON MD Mar 28, 2016 10:04
--- NOTE | 2016-03-28 11:24 | Occupational Ther Daily Note ---
OT Current Status-Daily Note Subjective Pt sitting in w/c, agrees to treatment. No c/o pain. Mental Status/Objective Functional [place] Measure 0=Not Assessed/NA 4=Minimal Assistance 1=Total Assistance 5=Supervision or Setup 2=Maximal Assistance 6=Modified [place] 3=Moderate Assistance 7=Complete [place] ADL-Treatment Pt declined ADLs this morning, states she will complete later today. Functional [place] Measure 0=Not Assessed/NA 4=Minimal Assistance 1=Total Assistance 5=Supervision or Setup 2=Maximal Assistance 6=Modified [place] 3=Moderate Assistance 7=Complete IndependenceIRFPAI Quality Coding Scale 6 Independent with activity with or without an assistive device 5 Patient requires set up or clean up by helper. Patient completes activity by themselves 4 Supervision or touching assist (CGA). [place] provide cues , steadying assist 3 The helper provides less than half the effort to complete the activity 2 The helper provides more than half the effort to complete the activity 1 Dependent. The helper does all the effort to complete an activity 7 Patient refused to complete or attempt activity 9 The patient did not perform the activity before the current illness or injury 88 Not attempted due to Medical conditions or safety concerns Other Treatment Pt performed w/c mobility to therapy gym without assistance. UE exercises completed to increase strength needed for transfers and ADLs. Pt performed shoulder flexion, abduction, biceps curls, and triceps extension exercises x20 reps with 2# weight. Rest breaks taken between exercises. Arm bike x12 minutes to increase overall strength and activity tolerance. Pt completed task with moderate resistance, no rest breaks needed. Shoulder arc activity with bilateral UE with 2# weights in place to increase strength. Graded clothespin activity with bilateral hands to increase plsql developer/pinch strength. Pt has good participation in all activities. Pt performed transfer w/c<-> EOB x5 trials. Pt able to complete transfers with CGA to SBA using FWW. Pt sitting in w/c with needs met after session. OT Short Term Goals Short Term Goals Time Frame: Mar 17, 2016 Bathing(FIM): 4 Lower Body Dressing(FIM): 3 Toileting(FIM): 3 Toilet/Commode Transfer(FIM): 4 Shower Transfer(FIM): 3 Additional Short Term Goals: 1-Demonstrate ADL Tasks, 2-Verbalize Understanding , 3-ImproveStrength/Mahad 1=Demonstrate adherence to instructed precautions during ADL tasks. 2=Patient will verbalize/demonstrate understanding of assistive devices/ modifications for ADL. 3=Patient will improve strength/tolerance for activity to enable patient to perform ADL's. OT Shelter Goals Public Relations Counselor Goals Time Frame: Mar 31, 2016 Eating (FIM): 6 Eating (QC): 6 Oral Hygiene (QC): 6 Grooming(FIM): 6 Bathing(FIM): 5 Shower/Bathe Self (QC): 4 Upper Body Dressing(FIM): 6 Upper Body Dressing (QC): 6 Lower Body Dressing(FIM): 5 Lower Body Dressing (QC): 4 On/Off Footwear (QC): 5 Toileting(FIM): 5 Toileting Hygiene (QC): 4 Toilet/Commode Transfer(FIM): 5 Toilet/Commode Transfer (QC): 4 Shower Transfer(FIM): 4 Additional Goals: 1-Demonstrate ADL Tasks, 2-Verbalize Understanding, 3- ImproveStrength/Mahad 1=Demonstrate adherence to instructed precautions during ADL tasks. 2=Patient will verbalize/demonstrate understanding of assistive devices/ modifications for ADL. 3=Patient will improve strength/tolerance for activity to enable patient to perform ADL's. OT Education/Plan Problem List/Assessment Pt demonstrates decreased mobility, strength, activity tolerance, and ADL performance. Pt to benefit from skilled OT intervention for ADL training, transfers, strengthening, adaptive equipment training as needed, and home safety education to maximize level of function and allow safe discharge. Discharge Recommendations Plan/Recommendations: Continue POC Treatment Plan/Plan of Care Patient would benefit from OT for education, treatment and training to promote independence in ADL's, mobility, safety and/or upper extremity function for ADL' s. Plan of Care: ADL Retraining, Functional Mobility, Group Exercise/Act as Ind, UE Funct Exercise/Act Treatment Duration: Mar 31, 2016 Visits Per Week: 10-11 Minutes/Day (M-F): 60-90 Minutes/Day (Sat/Canchola): PRN Agreement: Yes Rehab Potential: Fair Time/GCodes Start Time: 09:00 Stop Time: 10:00 Total Time Billed (hr/min): 60 Billed Treatment Time 1 visit, EXx3(45minutes), FA(15minutes) OLIVIA NELSON OT Mar 28, 2016 11:24
[2016-03-28 12:42] LABS: BILIRUBIN,URINE NEGATIVE (NEGATIVE); KETONES,URINE NEGATIVE (NEGATIVE); LEUKOCYTE ESTERASE ,URINE 1+ (NEGATIVE); NITRITE,URINE NEGATIVE (NEGATIVE); PH,URINE 6.5 (5-9); PROTEIN,URINE NEGATIVE (NEGATIVE); UROBILINOGEN,URINE NORMAL (NORMAL)
--- NOTE | 2016-03-28 14:48 | Therapy Group Daily Note ---
Therapy Daily Group Note Patient Education Topic Other List Below (strategies to support memory) Exercises LE Seated Exercise, UE Exercise Other/Notes Pt. attended group session this date, came to and from in w/c indep. Pt. participated well introducing self, joining in memory activity focused on memories of other group members introduction of themselves . Pts participated in seated U&L extremity therex that was lead by pts reading and demonstrating from exercise instruction cards. This pt. lead well. Other memory activities included matching image game which pt. excelled at. Pt. is very pleasant, smiles and shares well. Pt. with family after. Start Time: 13:00 Stop Time: 14:05 Total Billed Treatment Time: 65 Total Billed Treatment 1,GRP MARINO HO CHEMICAL LAB TECHNICIAN Mar 28, 2016 14:48
--- NOTE | 2016-03-28 16:13 | Diagnostic Imaging Report ---
PROCEDURE: US Carotid Duplex Bilateral. TECHNIQUE: Multiple real-time grayscale images were obtained over the carotid arteries in various projections bilaterally. Additional duplex Doppler and color Doppler images were also obtained. INDICATION: Peripheral arterial disease. FINDINGS: The grayscale images demonstrate atherosclerotic plaque along the carotid bifurcation on both sides. There is patency demonstrated with color Doppler in the common, internal, and external carotid arteries on both sides. Antegrade flow in the vertebral arteries is demonstrated bilaterally. The peak systolic velocities in the right ICA are 77, 87, and 86 cm/s from the proximal to distal and on the left 107, 109, and 72 cm/s. The ICA/CCA ratios are up to 1.1 on the right side and up to 1.5 on the left. IMPRESSION: Atherosclerotic plaque is seen with no evidence of significant stenosis. The estimated underlying stenosis is in the range of 0-40% bilaterally. Dictated by: Dictated on workstation # [id number]
--- NOTE | 2016-03-28 16:19 | Diagnostic Imaging Report ---
EXAMINATION: Upper and lower extremity pressure measurements of ankle/brachial index and pulse volume recording at the ankle. INDICATION: Claudication. History of amputation on the left side FINDINGS: The ankle/brachial index on the right side is 0.76. Pulse volume recording waveforms is limited with irregularity seen. IMPRESSION: Moderately decreased the ROSIE on the right side. Dictated by: Dictated on workstation # [id number]
[2016-03-28 17:45] VITALS: BP 125/84
[2016-03-28] MEDS: ENOXAPARIN 40 MG/0.4 ML (LOVENOX) SYR SC SCH (20:28)
[2016-03-28] MEDS: oxyCODONE/APAP 5/325MG (PERCOCET 5) TABLET PO PRN (20:28)
[2016-03-28] MEDS: ATORVASTATIN 40 MG (LIPITOR) TABLET PO SCH (20:28)
[2016-03-28] MEDS: inSUlin DETERMIR 1 UNIT/0.01 ML (LEVEMIR) CHARGE PER UNIT SQ SCH (20:29)
--- NOTE | 2016-03-28 20:35 | PM & R (SOAP) Progress Note ---
Subjective Subjective/Events-last exam Patient was seen in her room this evening Patient min assist for transfers F/U U /A abnormal awaiting C&S Appreciate DR Curtis note Objective Exam Last Set of Vital Signs Vital Signs Date Time Temp Pulse Resp B/P Pulse Ox O2 Delivery O2 Flow Rate FiO2 03/28/16 17:45 98.0 100 20 125/84 98 Room Air Capillary Refill : Less Than 3 Seconds I&O Intake and Output 03/28/16 00:00 Intake Total 1300 ml Balance 1300 ml Intake Oral 1300 ml # Voids 5 General: Alert, No Acute Distress HEENT: Atraumatic Neck: Supple, No JVD, No Thyromegaly Lungs: Normal Air Movement Heart: Regular Rate, Normal S1, Normal S2, No Murmurs Abdomen: Normal Bowel Sounds, Soft, No Tenderness Extremities: No Clubbing, No Cyanosis Skin: Other (Sacral wounds resolved; L knee, stable eschar, 1.0 x 1.4 x 0.1 cm , min. drainage.) Neuro: Normal Speech, Strength at 5/5 X4 Ext, Other (mild weakness RLE) Psych/Mental Status: Mental Status NL Results Lab Laboratory Tests 03/26/16 06:02: Glucometer 182H 03/26/16 10:28: Glucometer 232H 03/26/16 15:59: Glucometer 176H 03/26/16 21:14: Glucometer 284H 03/27/16 05:32: Glucometer 166H 03/27/16 11:41: Glucometer 189H 03/27/16 16:23: Glucometer 228H 03/27/16 21:13: Glucometer 237H 03/28/16 05:21: Glucometer 196H 03/28/16 11:32: Glucometer 222H 03/28/16 12:35: Urine Bacteria TRACE, Urine Bilirubin NEGATIVE, Urine Casts NONE, Urine Clarity CLEAR, Urine Color YELLOW, Urine Crystals NONE, Urine Culture Indicated YES, Urine Glucose (UA) NEGATIVE, Urine Ketones NEGATIVE, Urine Leukocyte Esterase 1+ H, Urine Mucus NEGATIVE, Urine Nitrite NEGATIVE, Urine Protein NEGATIVE, Urine RBC RARE, Urine RBC (Auto) NEGATIVE, Urine Specific [place] 1.010L, Urine Squamous Epithelial Cells 10-25H, Urine Urobilinogen NORMAL, Urine WBC 5-10H, Urine pH 6.5 03/28/16 16:14: Glucometer 241H 03/28/16 20:07: Glucometer 179H Microbiology 03/09/16 C. difficile GDH Antigen & Toxins - Final, Complete 03/22/16 Urine Culture - Final, Complete Pseudomonas Aeruginosa Yeast Species Assessment/Plan Assessment Left BKA 02-01-16 OSH for gangrenous left foot Postop C DIF bowel colitis associated with sepsis treated at OSH-now on Vanco for ongoing treatment-improved Mild Hypokalemia Mild postop Anemia IDDM controlled HTN with hx of afib now sinus with hypotension depression on meds Tobaccoism declines Smoking cessation Trace edema rt ankle Uncertain if patient would tolerate Freddy hose-Lasix prn ordered-one dose ordered with improvement-resolved UTI with fever now afebrile on Vanco Check sensitivity-done Controlled descent to floor 03-24-16 Onychomycosis of toenails Plan Continue PT/OT DR Barrios to see re cardiac meds with echo ordered-done appreciate his consult and f/u recheck labs-done Lasix times one done-edema improved Completed course of Flagyl for Cdif now on course of Vanco with meds adjusted to promote formed st F/U re sensitivity of Gram Negative rods.-done-now repeat pending Apprediate DR sharp notes and orders Podiatry consult for diabetic foot care-done SW contacted me last week re letter to support additional financial assistance from [employer] so that she may have a home to go to -signed Recheck with patient re resolution of neck pain-improved Next Team Conference 03/30/16 IRMA ESPINOZA MD Mar 28, 2016 20:35
[2016-03-29 05:13] VITALS: BP 124/80
[2016-03-29] MEDS: inSUlin (REGULAR) HUMAN 1 UNIT/0.01 ML (CHARGE PER UNIT) SC SCH ×4 (05:15→21:07)
[2016-03-29 05:53] LABS: MEAN PLATELET VOLUME 9.2 FL (7.4-10.4); RED BLOOD COUNT 4.22 10^6/uL (4.35-5.85); RED CELL DISTRIBUTION WIDTH 15.6 % (10.0-14.5); WHITE BLOOD COUNT 10.3 10^3/uL (4.3-11.0)
[2016-03-29 06:17] LABS: CALCIUM 9.5 MG/DL (8.5-10.1); CREATININE SERUM 1.28 MG/DL (0.60-1.30); MAGNESIUM 2.1 MG/DL (1.8-2.4); POTASSIUM 4.3 MMOL/L (3.6-5.0)
--- NOTE | 2016-03-29 08:11 | Progress Note (SOAP) ---
Subjective Subjective/Events-last exam patient worried about toe being red Patient to have an arterial Doppler. Patient put on doxycycline and Keflex. Patient told about C. difficile. Patient told about not smoking. 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 Objective Exam Vital Signs Date Time Temp Pulse Resp B/P Pulse Ox O2 Delivery O2 Flow Rate FiO2 03/29/16 05:13 98.1 78 20 124/80 98 Room Air 03/28/16 21:00 Room Air 03/28/16 17:45 98.0 100 20 125/84 98 Room Air 03/28/16 09:00 Room Air I & O 03/29/16 07:00 Intake Total 1960 ml Balance 1960 ml Capillary Refill : Less Than 3 Seconds General Appearance: No Apparent Distress WD/WN Results Lab Laboratory Tests 03/29/16 05:02 Laboratory Tests 03/28/16 11:32: Glucometer 222H 03/28/16 12:35: Urine Bacteria TRACE, Urine Bilirubin NEGATIVE, Urine Casts NONE, Urine Clarity CLEAR, Urine Color YELLOW, Urine Crystals NONE, Urine Culture Indicated YES, Urine Glucose (UA) NEGATIVE, Urine Ketones NEGATIVE, Urine Leukocyte Esterase 1+ H, Urine Mucus NEGATIVE, Urine Nitrite NEGATIVE, Urine Protein NEGATIVE, Urine RBC RARE, Urine RBC (Auto) NEGATIVE, Urine Specific [place] 1.010L, Urine Squamous Epithelial Cells 10-25H, Urine Urobilinogen NORMAL, Urine WBC 5-10H, Urine pH 6.5 03/28/16 16:14: Glucometer 241H 03/28/16 20:07: Glucometer 179H 03/29/16 04:28: Glucometer 155H 03/29/16 05:02: Anion Gap 11, BUN/Creatinine Ratio 20, Blood Urea Nitrogen 25H, Calcium Level 9.5, Carbon Dioxide Level 18L, Chloride Level 106, Creatinine 1.28, Estimat Glomerular Filtration Rate 43, Glucose Level 151H, Hematocrit 37, Hemoglobin 12.1, Magnesium Level 2.1, Mean Corpuscular Hemoglobin 29, Mean Corpuscular Hemoglobin Concent 32, Mean Corpuscular Volume 88, Mean Platelet Volume 9.2, Platelet Count 532H, Potassium Level 4.3, Red Blood Count 4.22L, Red Cell Distribution Width 15.6H, Sodium Level 135, White Blood Count 10.3 Microbiology 03/09/16 C. difficile GDH Antigen & Toxins - Final, Complete 03/22/16 Urine Culture - Final, Complete Pseudomonas Aeruginosa Yeast Species Assessment/Plan Assessment/Plan Assess & Plan/Chief Complaint left below the knee amputation. Diabetes. Peripheral vascular disease. Depression history. Hypertension history. . 03/11/16 left below knee amputation. Diabetes. Peripheral vascular disease. History of hypertension. C. difficile. Hypotensive. Health lisinopril. . Left knee below amputation. Diabetes. Peripheral vascular disease. History of atrial fibrillation. Patient in sinus rhythm. Hypotension. C. difficile. Diarrhea improving. . 03/15/16. Left below the knee amputation. Diabetes. Peripheral vascular disease. Depression history. Atrial fib. Blood pressure goodt and heart rate within normal limits. . 03/16/16. Left below the knee amputation. Peripheral vascular disease. Diabetes. C. difficile. History of atrial fibrillation. Diarrhea better. Potassium 3.3 Will replace. Patient has renal insufficiency. . 03/17/16. Left below the knee amputation. Diabetes. Peripheral vascular disease. Depression history. Patient doing better. Patient happy. Patient improving. . 03/18/16. Left below the knee amputation. Diabetes. 4 vascular disease. Depression history. UA shows infection. C. difficile. To put on antibiotics only for 2 days when get sensitivity. . 03/21/16. Left below the knee amputation. C. difficile. Stools are better. Diabetes. Peripheral vascular disease. To check UA tomorrow. . 02/3116. Left below the knee amputation. Diabetes. Peripheral vascular disease. Hypertension history. Patient doing better and happy. infection nitrate negative now done today. . 03/23/16. infection with different organism now. Waiting for sensitivity. Patient doing much better. Patient positive. Patient hopping 6 steps. Wound is healing. Patient in the right direction . 03/24/16. Left below the knee amputation. Diabetes. Peripheral vascular disease. Depression. Patient doing better. Patient improving. . 03/25/16 area Left below the knee amputation. Diabetes. Peripheral vascular disease. Depression. Patient is improving and feeling better about herself. . 03/28/16. Left below the knee amputation. Diabetes under better control. Peripheral vascular disease. infection to check urine today. Depression history. Hypertension. . 03/29/16. Patient worried about toe. Toe has some redness to it. To do arterial Doppler . 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 To start on antibiotics. Patient not to smoke. Left below the knee amputation. Diabetes. Peripheral vascular disease. Depression Diagnosis/Problems: Clinical Quality Measures DVT/VTE Risk/Contraindication: Risk Factor Score Per Nursin RFS Level Per Nursing on Admit: 4+=Very High URSULA RENEE DO Mar 29, 2016 08:11
--- NOTE | 2016-03-29 08:16 | Physical Therapy Daily Note ---
PT Daily Note-Current Subjective Pt. states she has pain at 5/10 in R foot/toes. States she hates to take pain meds before Rx b/c she feels groggy and then cannot perform as well during Rx. Pain Numeric Pain Scale: 5-Moderate Pain Location: Right Location Body Site: Foot Pain Description: Burning Appearance right foot with pitting edema, third toe with red warm tissue around toe nail which was torn/removed Mental Status Patient Orientation: Normal For Age Transfers Functional [place] Measure 0=Not Assessed/NA 4=Minimal Assistance 1=Total Assistance 5=Supervision or Setup 2=Maximal Assistance 6=Modified [place] 3=Moderate Assistance 7=Complete IndependenceIRFPAI Quality Coding Scale 6 Independent with activity with or without an assistive device 5 Patient requires set up or clean up by helper. Patient completes activity by themselves 4 Supervision or touching assist (CGA). [place] provide cues , steadying assist 3 The helper provides less than half the effort to complete the activity 2 The helper provides more than half the effort to complete the activity 1 Dependent. The helper does all the effort to complete an activity 7 Patient refused to complete or attempt activity 9 The patient did not perform the activity before the current illness or injury 88 Not attempted due to Medical conditions or safety concerns Transfers (B, C, W/C) (FIM): 5 Scootin Rollin Supine to/from Sit: 6 Sit to/from Stand: 5 Bed to/from Chair: 5 all TRFs done with surfaces at 90degree angles, minimal hopping Gait Training Gait Assistive Device: FWW no real walking today in hopes of minimizing stress or pressure on affected right foot/LE Wheelchair Training Does the Pt Use a Wheelchair?: Yes Wheelchair (FIM): 6 Wheelchair Distance: 3=150 ft (200x2) Wheelchair Level of Assist: 6 Type of Wheelchair: Manual Exercises Supine Ex: Bridging, Ankle pumps, Quad Set, Rolling, Glut sets, Heel Slides, Short Arc Quads, Scooting, Straight leg raise, Hip abd/add Supine Reps: 20 side and prone hip ext and abd as well as hamstring curls x 20 NuStep Minutes: 10 NuStep Workload: 3 Assessment Current Status: Good Progress pain and edema RLE/foot, poor sensation therefore protecting R foot, no walking , TRFs only for wt bearing PT Short Term Goals Short Term Goals Time Frame: Mar 17, 2016 Gait (FIM): 1 Gait Distance Comment: 10' Gait Level of Assist: 4 Gait Assistive Device: FWW Wheelchair Distance: 150' PT Slitter Scorer Cut Off Operator Goals Usp Goals PT Slitter Scorer Cut Off Operator Goals Time Frame: Mar 31, 2016 Transfers (B,C,W/C) (FIM): 5 Sit to Lying (QC): 4 Lying-Sitting on Side/Bed(QC): 4 Sit to Stand (QC): 4 Rollin Roll Left to Right (QC): 4 [id number] Xfer(QC): 4 Car Transfer (QC): 4 Gait (FIM): 1 Distance: 20' Walk 10 feet (QC): 4 Walk 10ft-Uneven Surface(QC): 4 Walk 50ft with 2 Turns (QC): 88 Walk 150 ft (QC): 88 Gait Level of Assist: 5 Gait Assistive Device: FWW Wheelchair (FIM): 6 Distance: 150' Wheelchair Level of Assist: 6 Wheel 50 feet with 2 turns (QC: 6 Stairs (FIM): 2 # of Steps: 4 1 Step (curb) (QC): 4 4 Steps (QC): 4 12 Steps (QC): 88 Stairs Level Of Assist: 4 Picking up an Object (QC): 88 PT Plan Treatment/Plan Treatment Plan: Continue Plan of Care Treatment Plan: Bed Mobility, Education, Functional Activity Mahad, Functional Strength, Group Therapy, Gait, Safety, Therapeutic Exercise, Transfers Treatment Duration: Mar 31, 2016 Visits Per Week: 10-11 Minutes/Day (M-F): 60-90 Minutes/Day (Sat/Canchola): 15-30 Safety Risks/Education Patient Education: Transfer Techniques, W/C Management, Disease Process, Safety Issues Teaching Recipient: Patient Teaching Methods: Demonstration, Discussion Response to Teaching: Verbalize Understanding, Return Demonstration, Reinforcement Needed discussed elevation and rest for RLE today between therapies Time/GCodes Time In: 715 Time Out: 815 Total Billed Treatment Time: 60 Total Billed Treatment 1,FA30m,EX30m G Codes Necessary: MARINO Roca COPPERSMITH APPRENTICE Mar 29, 2016 08:16
--- NOTE | 2016-03-29 08:31 | Cardiology Progress Note ---
Subjective Subjective/Events-last exam Patient with PT. No new complaint. Denies any CP or dyspnea. Continues to complain of mild edema to right foot. Review of Systems General: No Night Sweats, No Fatigue, No Malaise HEENT: No Visual Changes, No Dysphasia, No Sore Throat Pulmonary: No Dyspnea, No Cough Cardiovascular: : EdemaNo: Chest Pain, Orthopnea, Palpitations, Paroxysmal Noc. Dyspnea Gastrointestinal: No: Abdominal Pain, Nausea, Vomiting Genitourinary: No Dysuria, No Frequency Musculoskeletal: No: back pain, neck pain Neurological: No: Change in speech, Confusion, Numbness, Weakness Objective-Cardiology Exam Last Set of Vital Signs Vital Signs 03/29/16 05:13 Temp 98.1 Pulse 78 Resp 20 B/P 124/80 Pulse Ox 98 O2 Delivery Room Air Capillary Refill : Less Than 3 Seconds I&O Intake and Output 03/29/16 00:00 Intake Total 1610 ml Balance 1610 ml Intake Oral 1610 ml # Voids 3 # Urine Diapers 3 # Bowel Movements 1 General: Alert, No Acute Distress HEENT: Atraumatic Neck: Supple, No JVD, No Thyromegaly Lungs: Normal Air Movement Heart: Regular Rate, Normal S1, Normal S2, No Murmurs Abdomen: Normal Bowel Sounds, Soft, No Tenderness Extremities: No Clubbing, No Cyanosis Skin: Other (Sacral wounds resolved; L knee, stable eschar, 1.0 x 1.4 x 0.1 cm , min. drainage.) Neuro: Normal Speech, Strength at 5/5 X4 Ext, Other (mild weakness RLE) Psych/Mental Status: Mental Status NL Results Lab Laboratory Tests 03/29/16 05:02 A/P-Cardiology Admission Diagnosis Hypotension Paroxysmal atrial fibrillation Hyperlipidemia Peripheral arterial disease Diabetes mellitus Assessment/Plan Hypotension, multifactorial, improving, now borderline hypotensive. Continue to monitor. I will evaluate carotid ultrasound and ROSIE. Right leg swelling, extensive peripheral arterial disease,ROSIE 0.76. Continue to monitor. Paroxysmal atrial fibrillation, reporting episode of atrial fibrillation during her hospital stay in January at [facility]. She is not on oral anticoagulation, no signs of bleeding. Probably transient episode of atrial fibrillation. She denied any previous history prior to her surgery. No syncope was reported. Currently in sinus rhythm. Continue to monitor C. difficile colitis, improved, off isolation at this time. Continue to monitor Peripheral arterial disease, extensive, continue to monitor closely. Patient complaining of RLE claudication pain, increased edema in right foot. ROSIE on right side 0.76. Continue to monitor. 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 Anemia, monitor H&H Hyperlipidemia, maintained on Lipitor. Monitor lipids Diabetes mellitus, followed and managed by primary care physician Tobaccoism, educated in length on smoking cessation Depression, anxiety. Managed by primary care physician Debility, receiving physical therapy Clinical Quality Measures DVT/VTE Risk/Contraindication: Risk Factor Score Per Nursin RFS Level Per Nursing on Admit: 4+=Very High LINH WALLACE Mar 29, 2016 08:31
[2016-03-29] MEDS: MUPIROCIN 2% OINT 22 GM (BACTROBAN) TUBE TOP SCH ×2 (09:20→20:32)
[2016-03-29] MEDS: DULoxetine 30 MG (CYMBALTA) CAP PO SCH (09:20)
[2016-03-29] MEDS: DILTIAZEM 30 MG (CARDIZEM) TAB PO SCH ×3 (09:21→20:32)
[2016-03-29] MEDS: CEPHALEXIN 250 MG (KEFLEX) CAP PO SCH ×3 (09:21→20:32)
[2016-03-29] MEDS: GABAPENTIN 600 MG (NEURONTIN) TAB PO SCH ×3 (09:21→20:32)
--- NOTE | 2016-03-29 12:19 | Diagnostic Imaging Report ---
EXAMINATION: Arterial vascular duplex ultrasound of the right lower extremity. INDICATION: Right leg pain and infection. There is below knee amputation on the left side. FINDINGS: Grayscale images demonstrate mild intimal plaque in the femoropopliteal segments. There is monophasic waveforms in the common femoral artery and some biphasic component seen but predominantly monophasic waveforms in the SFA and the popliteal artery. The velocities from the common femoral to the popliteal arteries are 122, 66, 50, 54 and 204 CM per second with no definite underlying significant plaque identified in the area of the velocity gradient seen. There is however an area of shadowing obscuring potentially significant plaque no visible in the distal popliteal artery. The velocity in the popliteal trunk is 263 and there is a diminished monophasic waveforms in the dorsalis pedis and posterior tibial artery with diminished velocity and the DP at 35 CM per second. Velocity in the posterior tibial is 65 CM per second. IMPRESSION: Abnormal arterial waveforms throughout, mostly monophasic with moderate elevated velocity in the right popliteal artery may relate to underlying focal significant stenosis. Dictated by: Dictated on workstation # [id number]
--- NOTE | 2016-03-29 12:50 | Occupational Ther Daily Note ---
OT Current Status-Daily Note Subjective Pt sitting in gym, agrees to treatment. Reports feeling "achy" today, but has no c/o pain. Mental Status/Objective Functional [place] Measure 0=Not Assessed/NA 4=Minimal Assistance 1=Total Assistance 5=Supervision or Setup 2=Maximal Assistance 6=Modified [place] 3=Moderate Assistance 7=Complete [place] ADL-Treatment Functional [place] Measure 0=Not Assessed/NA 4=Minimal Assistance 1=Total Assistance 5=Supervision or Setup 2=Maximal Assistance 6=Modified [place] 3=Moderate Assistance 7=Complete IndependenceIRFPAI Quality Coding Scale 6 Independent with activity with or without an assistive device 5 Patient requires set up or clean up by helper. Patient completes activity by themselves 4 Supervision or touching assist (CGA). [place] provide cues , steadying assist 3 The helper provides less than half the effort to complete the activity 2 The helper provides more than half the effort to complete the activity 1 Dependent. The helper does all the effort to complete an activity 7 Patient refused to complete or attempt activity 9 The patient did not perform the activity before the current illness or injury 88 Not attempted due to Medical conditions or safety concerns Other Treatment Pt performed bilateral UE exercises while seated to increase strength needed for transfers and ADLs. Pt completed shoulder flexion, abduction, shoulder press , biceps curls, and triceps extension exercises x20 reps with 2# weights. Pt requires rest breaks between exercises. Transfer edge of mat to w/c with SBA. Pt performed fine motor activity with nuts and bolts with bilateral UE with 2# weights in place to increase strength and fine motor coordination. Arm bike x12 minutes to increase overall strength and activity tolerance needed for functional tasks. Pt completed activity with moderate resistance and slow pace. No rest breaks needed. Peg activity with bilateral hands with 1# weight in place to increase strength. Pt able to complete task without assistance. Graded clothespin activity with bilateral hands to increase locomotive firer/fireman/pinch strength. Pt performed w/c mobility to room without assistance. Transfer w/c to EOB with SBA using FWW. Pt sitting EOB with needs met after session. OT Short Term Goals Short Term Goals Time Frame: Mar 17, 2016 Bathing(FIM): 4 Lower Body Dressing(FIM): 3 Toileting(FIM): 3 Toilet/Commode Transfer(FIM): 4 Shower Transfer(FIM): 3 Additional Short Term Goals: 1-Demonstrate ADL Tasks, 2-Verbalize Understanding , 3-ImproveStrength/Mahad 1=Demonstrate adherence to instructed precautions during ADL tasks. 2=Patient will verbalize/demonstrate understanding of assistive devices/ modifications for ADL. 3=Patient will improve strength/tolerance for activity to enable patient to perform ADL's. OT Apartment Manager Goals Apartment Manager Goals Time Frame: Mar 31, 2016 Eating (FIM): 6 Eating (QC): 6 Oral Hygiene (QC): 6 Grooming(FIM): 6 Bathing(FIM): 5 Shower/Bathe Self (QC): 4 Upper Body Dressing(FIM): 6 Upper Body Dressing (QC): 6 Lower Body Dressing(FIM): 5 Lower Body Dressing (QC): 4 On/Off Footwear (QC): 5 Toileting(FIM): 5 Toileting Hygiene (QC): 4 Toilet/Commode Transfer(FIM): 5 Toilet/Commode Transfer (QC): 4 Shower Transfer(FIM): 4 Additional Goals: 1-Demonstrate ADL Tasks, 2-Verbalize Understanding, 3- ImproveStrength/Mahad 1=Demonstrate adherence to instructed precautions during ADL tasks. 2=Patient will verbalize/demonstrate understanding of assistive devices/ modifications for ADL. 3=Patient will improve strength/tolerance for activity to enable patient to perform ADL's. OT Education/Plan Problem List/Assessment Pt demonstrates decreased mobility, strength, activity tolerance, and ADL performance. Pt to benefit from skilled OT intervention for ADL training, transfers, strengthening, adaptive equipment training as needed, and home safety education to maximize level of function and allow safe discharge. Discharge Recommendations Plan/Recommendations: Continue POC Treatment Plan/Plan of Care Treatment,Training & Education: Yes Patient would benefit from OT for education, treatment and training to promote independence in ADL's, mobility, safety and/or upper extremity function for ADL' s. Plan of Care: ADL Retraining, Functional Mobility, Group Exercise/Act as Ind, UE Funct Exercise/Act Treatment Duration: Mar 31, 2016 Visits Per Week: 10-11 Minutes/Day (M-F): 60-90 Minutes/Day (Sat/Canchola): PRN Agreement: Yes Rehab Potential: Fair Time/GCodes Start Time: 08:15 Stop Time: 09:15 Total Time Billed (hr/min): 60 Billed Treatment Time 1 visit, EXx4(60minutes) OLIVIA NELSON OT Mar 29, 2016 12:50
--- NOTE | 2016-03-29 13:12 | PM & R (SOAP) Progress Note ---
Subjective Subjective/Events-last exam Patient was seen in her room this noonhour Had Vasculasr study today suggestive of ARTerial PVD correlateing with her c/o swellin and increased pain rt foot.Dr Christina and Sophie following.Patient Min assist to CGA for transfers Labs noted Objective Exam Last Set of Vital Signs Vital Signs Date Time Temp Pulse Resp B/P Pulse Ox O2 Delivery O2 Flow Rate FiO2 03/29/16 09:00 Room Air 03/29/16 05:13 98.1 78 20 124/80 98 Capillary Refill : Less Than 3 Seconds I&O Intake and Output 03/29/16 00:00 Intake Total 1610 ml Balance 1610 ml Intake Oral 1610 ml # Voids 3 # Urine Diapers 3 # Bowel Movements 1 General: Alert, No Acute Distress HEENT: Atraumatic Neck: Supple, No JVD, No Thyromegaly Lungs: Normal Air Movement Heart: Regular Rate, Normal S1, Normal S2, No Murmurs Abdomen: Normal Bowel Sounds, Soft, No Tenderness Extremities: No Clubbing, No Cyanosis Skin: Other (Sacral wounds resolved; L knee, stable eschar, 1.0 x 1.4 x 0.1 cm , min. drainage.) Neuro: Normal Speech, Strength at 5/5 X4 Ext, Other (mild weakness RLE) Psych/Mental Status: Mental Status NL Results Lab Laboratory Tests 03/26/16 15:59: Glucometer 176H 03/26/16 21:14: Glucometer 284H 03/27/16 05:32: Glucometer 166H 03/27/16 11:41: Glucometer 189H 03/27/16 16:23: Glucometer 228H 03/27/16 21:13: Glucometer 237H 03/28/16 05:21: Glucometer 196H 03/28/16 11:32: Glucometer 222H 03/28/16 12:35: Urine Bacteria TRACE, Urine Bilirubin NEGATIVE, Urine Casts NONE, Urine Clarity CLEAR, Urine Color YELLOW, Urine Crystals NONE, Urine Culture Indicated YES, Urine Glucose (UA) NEGATIVE, Urine Ketones NEGATIVE, Urine Leukocyte Esterase 1+ H, Urine Mucus NEGATIVE, Urine Nitrite NEGATIVE, Urine Protein NEGATIVE, Urine RBC RARE, Urine RBC (Auto) NEGATIVE, Urine Specific [place] 1.010L, Urine Squamous Epithelial Cells 10-25H, Urine Urobilinogen NORMAL, Urine WBC 5-10H, Urine pH 6.5 03/28/16 16:14: Glucometer 241H 03/28/16 20:07: Glucometer 179H 03/29/16 04:28: Glucometer 155H 03/29/16 05:02: Anion Gap 11, BUN/Creatinine Ratio 20, Blood Urea Nitrogen 25H, Calcium Level 9.5, Carbon Dioxide Level 18L, Chloride Level 106, Creatinine 1.28, Estimat Glomerular Filtration Rate 43, Glucose Level 151H, Hematocrit 37, Hemoglobin 12.1, Magnesium Level 2.1, Mean Corpuscular Hemoglobin 29, Mean Corpuscular Hemoglobin Concent 32, Mean Corpuscular Volume 88, Mean Platelet Volume 9.2, Platelet Count 532H, Potassium Level 4.3, Red Blood Count 4.22L, Red Cell Distribution Width 15.6H, Sodium Level 135, White Blood Count 10.3 03/29/16 10:59: Glucometer 176H Microbiology 03/09/16 C. difficile GDH Antigen & Toxins - Final, Complete 03/28/16 Urine Culture - Preliminary, Resulted NO GROWTH Assessment/Plan Assessment Left [facility] 02-01-16 OSH for gangrenous left foot Postop C DIF bowel colitis associated with sepsis treated at OSH-now on Vanco for ongoing treatment-improved Mild Hypokalemia Mild postop Anemia IDDM controlled HTN with hx of afib now sinus with hypotension depression on meds Tobaccoism declines Smoking cessation Trace edema rt ankle Uncertain if patient would tolerate Freddy hose-Lasix prn ordered-one dose ordered with improvement-resolved UTI with fever now afebrile on Vanco Check sensitivity-done Controlled descent to floor 03-24-16 Onychomycosis of toenails Peripheral Vasc d with claudcation complaints RLE Plan Continue PT/OT DR Barrios to see re cardiac meds with echo ordered-done appreciate his consult and f/u recheck labs-done Lasix times one done-edema improved Completed course of Flagyl for Cdif now on course of Vanco with meds adjusted to promote formed st F/U re sensitivity of Gram Negative rods.-done-now repeat pending Apprediate DR sharp notes and orders Podiatry consult for diabetic foot care-done SW contacted me last week re letter to support additional financial assistance from [place] so that she may have a home to go to -signed Recheck with patient re resolution of neck pain-improved Next Team Conference tomorrow 03/30/16 F/U with Dr Christina and Sophie sheridan further eval and treatment of Periheral Vasc D. IRMA GALLAGHER MD Mar 29, 2016 13:12
--- NOTE | 2016-03-29 13:24 | Occupational Ther Daily Note ---
OT Current Status-Daily Note Subjective Pt sitting in w/c, requests to shower. Mental Status/Objective Functional [place] Measure 0=Not Assessed/NA 4=Minimal Assistance 1=Total Assistance 5=Supervision or Setup 2=Maximal Assistance 6=Modified [place] 3=Moderate Assistance 7=Complete [place] ADL-Treatment Pt transferred w/c to shower chair with minimal assistance using FWW. [place] clothing with SBA. Pt completed seated bathing using hand held shower. Left residual limb covered to prevent getting wet. Pt able to bathe all areas with SBA. Weight shifted side to side to wash buttocks instead of standing to complete task. Pt able to dry all areas with SBA. Don bra and pullover shirt with set up. Pt donned underwear and pants with minimal assistance for pant hike on left side. Pt requires CGA for standing balance during pant hike. Pt fatigues with activity and requires occasional rest breaks during session. Comb hair with modified independence. Pt requests to return to bed after session. Transfer w/c to bed with SBA using FWW. Sit to supine with modified independence. Pt in bed with needs met after session. Functional [place] Measure 0=Not Assessed/NA 4=Minimal Assistance 1=Total Assistance 5=Supervision or Setup 2=Maximal Assistance 6=Modified [place] 3=Moderate Assistance 7=Complete IndependenceIRFPAI Quality Coding Scale 6 Independent with activity with or without an assistive device 5 Patient requires set up or clean up by helper. Patient completes activity by themselves 4 Supervision or touching assist (CGA). [place] provide cues , steadying assist 3 The helper provides less than half the effort to complete the activity 2 The helper provides more than half the effort to complete the activity 1 Dependent. The helper does all the effort to complete an activity 7 Patient refused to complete or attempt activity 9 The patient did not perform the activity before the current illness or injury 88 Not attempted due to Medical conditions or safety concerns Grooming (FIM): 6 Oral Hygiene (QC): 6 Bathing (FIM): 5 Upper Body (FIM): 5 Upper Body Dressing (QC): 5 Lower Body Dressing (FIM): 4 Lower Body Dressing (QC): 3 Shower Transfer(FIM): 3 OT Short Term Goals Short Term Goals Time Frame: Mar 17, 2016 Bathing(FIM): 4 Lower Body Dressing(FIM): 3 Toileting(FIM): 3 Toilet/Commode Transfer(FIM): 4 Shower Transfer(FIM): 3 Additional Short Term Goals: 1-Demonstrate ADL Tasks, 2-Verbalize Understanding , 3-ImproveStrength/Mahad 1=Demonstrate adherence to instructed precautions during ADL tasks. 2=Patient will verbalize/demonstrate understanding of assistive devices/ modifications for ADL. 3=Patient will improve strength/tolerance for activity to enable patient to perform ADL's. OT Fiscal Clerk Goals Halfway Goals Time Frame: Mar 31, 2016 Eating (FIM): 6 Eating (QC): 6 Oral Hygiene (QC): 6 Grooming(FIM): 6 Bathing(FIM): 5 Shower/Bathe Self (QC): 4 Upper Body Dressing(FIM): 6 Upper Body Dressing (QC): 6 Lower Body Dressing(FIM): 5 Lower Body Dressing (QC): 4 On/Off Footwear (QC): 5 Toileting(FIM): 5 Toileting Hygiene (QC): 4 Toilet/Commode Transfer(FIM): 5 Toilet/Commode Transfer (QC): 4 Shower Transfer(FIM): 4 Additional Goals: 1-Demonstrate ADL Tasks, 2-Verbalize Understanding, 3- ImproveStrength/Mahad 1=Demonstrate adherence to instructed precautions during ADL tasks. 2=Patient will verbalize/demonstrate understanding of assistive devices/ modifications for ADL. 3=Patient will improve strength/tolerance for activity to enable patient to perform ADL's. OT Education/Plan Problem List/Assessment Pt demonstrates decreased mobility, strength, activity tolerance, and ADL performance. Pt to benefit from skilled OT intervention for ADL training, transfers, strengthening, adaptive equipment training as needed, and home safety education to maximize level of function and allow safe discharge. Discharge Recommendations Plan/Recommendations: Continue POC Treatment Plan/Plan of Care Patient would benefit from OT for education, treatment and training to promote independence in ADL's, mobility, safety and/or upper extremity function for ADL' s. Plan of Care: ADL Retraining, Functional Mobility, Group Exercise/Act as Ind, UE Funct Exercise/Act Treatment Duration: Mar 31, 2016 Visits Per Week: 10-11 Minutes/Day (M-F): 60-90 Minutes/Day (Sat/[place]): PRN Agreement: Yes Rehab Potential: Fair Time/GCodes Start Time: 11:15 Stop Time: 12:00 Total Time Billed (hr/min): 45 Billed Treatment Time 1 visit, ADLx3(45minutes) OLIVIA NELSON OT Mar 29, 2016 13:24
[2016-03-29] MEDS: ALPRAZolam 0.5 MG (XANAX) TAB PO PRN ×2 (13:25→17:52)
--- NOTE | 2016-03-29 14:04 | Physical Therapy Daily Note ---
PT Daily Note-Current Subjective Agrees to Rx. Having an important disability phone call soon. would like to have Rx without much wt bearing right foot Pain Numeric Pain Scale: 0-No Pain Mental Status Patient Orientation: Normal For Age Transfers Functional [place] Measure 0=Not Assessed/NA 4=Minimal Assistance 1=Total Assistance 5=Supervision or Setup 2=Maximal Assistance 6=Modified [place] 3=Moderate Assistance 7=Complete IndependenceIRFPAI Quality Coding Scale 6 Independent with activity with or without an assistive device 5 Patient requires set up or clean up by helper. Patient completes activity by themselves 4 Supervision or touching assist (CGA). [place] provide cues , steadying assist 3 The helper provides less than half the effort to complete the activity 2 The helper provides more than half the effort to complete the activity 1 Dependent. The helper does all the effort to complete an activity 7 Patient refused to complete or attempt activity 9 The patient did not perform the activity before the current illness or injury 88 Not attempted due to Medical conditions or safety concerns SPTs with FWW all SBA to CGA Wheelchair Training Does the Pt Use a Wheelchair?: Yes Wheelchair (FIM): 5 Wheelchair Distance: 3=150 ft Type of Wheelchair: Manual up down ramp, lock unlock, tight turns etc Treatments pt. to have angiogram in AM and then rest for next approx [address] Barrios Assessment Current Status: Good Progress PT Short Term Goals Short Term Goals Time Frame: Mar 17, 2016 Gait (FIM): 1 Gait Distance Comment: 10' Gait Level of Assist: 4 Gait Assistive Device: FWW Wheelchair Distance: 150' PT Detention Goals Detention Goals PT Detention Goals Time Frame: Mar 31, 2016 Transfers (B,C,W/C) (FIM): 5 Sit to Lying (QC): 4 Lying-Sitting on Side/Bed(QC): 4 Sit to Stand (QC): 4 Rollin Roll Left to Right (QC): 4 Chair/Qpy-lz-Fqudr Xfer(QC): 4 Car Transfer (QC): 4 Gait (FIM): 1 Distance: 20' Walk 10 feet (QC): 4 Walk 10ft-Uneven Surface(QC): 4 Walk 50ft with 2 Turns (QC): 88 Walk 150 ft (QC): 88 Gait Level of Assist: 5 Gait Assistive Device: FWW Wheelchair (FIM): 6 Distance: 150' Wheelchair Level of Assist: 6 Wheel 50 feet with 2 turns (QC: 6 Stairs (FIM): 2 # of Steps: 4 1 Step (curb) (QC): 4 4 Steps (QC): 4 12 Steps (QC): 88 Stairs Level Of Assist: 4 Picking up an Object (QC): 88 PT Plan Treatment/Plan Treatment Plan: Continue Plan of Care Treatment Plan: Bed Mobility, Education, Functional Activity Mahad, Functional Strength, Group Therapy, Gait, Safety, Therapeutic Exercise, Transfers Treatment Duration: Mar 31, 2016 Visits Per Week: 10-11 Minutes/Day (M-F): 60-90 Minutes/Day (Sat/[place]): 15-30 Safety Risks/Education Patient Education: W/C Management Teaching Recipient: Patient Teaching Methods: Demonstration, Discussion Response to Teaching: Verbalize Understanding, Return Demonstration, Reinforcement Needed Time/GCodes Time In: 1330 Time Out: 1400 Total Billed Treatment Time: 30 Total Billed Treatment 1,WCH30m G Codes Necessary: MARINO Roca CORE MAKER HELPER Mar 29, 2016 14:04
--- NOTE | 2016-03-29 14:12 | Cardiology Progress Note ---
Subjective Subjective/Events-last exam Patient is sitting in a chair, still having weakness on the right leg. Denied any chest pain or shortness of breath. Review of Systems General: No Chills, No Night Sweats, No Fatigue, No Malaise, No Appetite, No Other HEENT: No Head Aches, No Visual Changes, No Eye Pain, No Ear Pain, No Dysphasia , No Sinus Congestion, No Post Nasal Drip, No Sore Throat, No Other Pulmonary: DyspneaNo Cough, No Pleuritic Chest Pain, No Other Cardiovascular: No: Chest Pain, Edema, Lt Headedness, Orthopnea, Other, Palpitations, Paroxysmal Noc. Dyspnea Objective-Cardiology Exam Last Set of Vital Signs Vital Signs 03/29/16 03/29/16 05:13 09:00 Temp 98.1 Pulse 78 Resp 20 B/P 124/80 Pulse Ox 98 O2 Delivery Room Air Capillary Refill : Less Than 3 Seconds I&O Intake and Output 03/29/16 00:00 Intake Total 1610 ml Balance 1610 ml Intake Oral 1610 ml # Voids 3 # Urine Diapers 3 # Bowel Movements 1 General: Alert, No Acute Distress HEENT: Atraumatic Neck: Supple, No JVD, No Thyromegaly Lungs: Normal Air Movement Heart: Regular Rate, Normal S1, Normal S2, No Murmurs Abdomen: Normal Bowel Sounds, Soft, No Tenderness Extremities: No Clubbing, No Cyanosis Skin: Other (Sacral wounds resolved; L knee, stable eschar, 1.0 x 1.4 x 0.1 cm , min. drainage.) Neuro: Normal Speech, Strength at 5/5 X4 Ext, Other (mild weakness RLE) Psych/Mental Status: Mental Status NL Results Lab Laboratory Tests 03/29/16 05:02 A/P-Cardiology Admission Diagnosis Hypotension Paroxysmal atrial fibrillation Hyperlipidemia Peripheral arterial disease Diabetes mellitus Assessment/Plan Hypotension, multifactorial, improving, better at this time, continue to monitor Right leg swelling, extensive peripheral arterial disease, ROSIE 0.76, ultrasound was abnormal, patient is fairly concerned about her leg. I will proceed with the peripheral angiogram possible angioplasty. Paroxysmal atrial fibrillation, reporting episode of atrial fibrillation during her hospital stay in January at [facility]. She is not on oral anticoagulation, no signs of bleeding. Probably transient episode of atrial fibrillation. She denied any previous history prior to her surgery. No syncope was reported. Currently in sinus rhythm. Continue to monitor C. difficile colitis, improved, off isolation at this time. Continue to monitor Peripheral arterial disease, extensive, continue to monitor closely. Patient complaining of RLE claudication pain, increased edema in right foot. ROSIE on right side 0.76. Continue to monitor. 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 Anemia, monitor H&H Hyperlipidemia, maintained on Lipitor. Monitor lipids Diabetes mellitus, followed and managed by primary care physician Tobaccoism, educated in length on smoking cessation Depression, anxiety. Managed by primary care physician Debility, receiving physical therapy Clinical Quality Measures DVT/VTE Risk/Contraindication: Risk Factor Score Per Nursin RFS Level Per Nursing on Admit: 4+=Very High MILADY SHANNON MD Mar 29, 2016 14:12
[2016-03-29 14:47] LABS: RED CELL DISTRIBUTION WIDTH 15.3 % (10.0-14.5); WHITE BLOOD COUNT 11.5 10^3/uL (4.3-11.0)
[2016-03-29 15:00] LABS: INR 1.1 (0.8-1.4)
[2016-03-29 15:05] LABS: CREATININE SERUM 1.66 MG/DL (0.60-1.30); POTASSIUM 4.1 MMOL/L (3.6-5.0)
[2016-03-29] MEDS: DOXYCYCLINE 100 MG (VIBRAMYCIN) TABLET PO SCH (16:53)
[2016-03-29] MEDS: oxyCODONE/APAP 5/325MG (PERCOCET 5) TABLET PO PRN (17:52)
[2016-03-29 18:02] VITALS: BP 128/84
[2016-03-29] MEDS: NS IV 1000 ML 1,000 ML IV SCH (18:15)
[2016-03-29] MEDS: ENOXAPARIN 40 MG/0.4 ML (LOVENOX) SYR SC SCH (19:41)
[2016-03-29] MEDS: ATORVASTATIN 40 MG (LIPITOR) TABLET PO SCH (20:32)
[2016-03-29] MEDS: inSUlin DETERMIR 1 UNIT/0.01 ML (LEVEMIR) CHARGE PER UNIT SQ SCH (20:33)
[2016-03-30] MEDS: NS IV 1000 ML 1,000 ML IV SCH ×3 (01:21→18:17)
[2016-03-30] MEDS: inSUlin (REGULAR) HUMAN 1 UNIT/0.01 ML (CHARGE PER UNIT) SC SCH ×4 (06:00→21:00)
[2016-03-30] MEDS: DOXYCYCLINE 100 MG (VIBRAMYCIN) TABLET PO SCH ×2 (06:04→17:28)
[2016-03-30 06:13] VITALS: BP 115/77
--- NOTE | 2016-03-30 07:50 | Cardiac Procedure Note-CS/ASA ---
Pre-Procedure Note Pre-Op Procedure Note H&P Reviewed The H&P was reviewed, patient examined and no changes noted. Date H&P Reviewed: Mar 30, 2016 Time H&P Reviewed: 07:49 Conscious Sedation Pre-Proced Time Reviewed: 07:49 ASA Class: 3 Airway Mallampati Classification: ([place] appropriate class) I. II. III, IV Lungs Heart ASA score ASA 1: a normal healthy patient ASA 2: a patient with a mild systemic disease (mid diabetes, controlled hypertension, obesity x ASA 3: a patient with a severe systemic disease that limits activity (angina , COPD, prior Myocardial infarction) ASA 4: a patient with an incapacitating disease that is a constant threat to life (CHF, renal failure) ASA 5: a moribund patient not expected to survive 24 hrs. (ruptured aneurysm) ASA 6: a declared brain patient whose organs are being harvested. For emergent operations, add the letter E after the classification Grade 3 Sedation Plan: Analgesia, Amnesia, Plan communicated to team members, Discussed options with patient/fam, Discussed risks with patient/fam Note The patient is an appropriate candidate to undergo the planned procedure, sedation, and anesthesia. The patient immediately re-assessed prior to indication. MILADY SHANNON MD Mar 30, 2016 7:50 am
--- NOTE | 2016-03-30 08:01 | Progress Note (SOAP) ---
Subjective Subjective/Events-last exam patient feeling okay. Arterial Doppler showed stenosis. GFR 32 yesterday. Diabetes. Pressure ulcer stage II. Cardiology to evaluate circulation in right leg today Objective Exam Vital Signs Date Time Temp Pulse Resp B/P Pulse Ox O2 Delivery O2 Flow Rate FiO2 03/30/16 06:13 98.1 93 18 115/77 97 Room Air 03/29/16 21:00 Room Air 03/29/16 18:02 97.9 92 16 128/84 99 03/29/16 09:00 Room Air I & O 03/30/16 07:00 Intake Total 2600 ml Output Total 1600 ml Balance 1000 ml Capillary Refill : Less Than 3 Seconds General Appearance: No Apparent Distress WD/WN HEENT: Normal ENT Inspection Neck: Full Range of Motion Normal Inspection Respiratory: Chest Non Tender Lungs Clear Normal Breath Sounds No Accessory Muscle Use No Respiratory Distress Cardiovascular: Regular Rate, Rhythm No Murmur Gastrointestinal: non tender soft Results Lab Laboratory Tests 03/29/16 14:41 Laboratory Tests 03/29/16 10:59: Glucometer 176H 03/29/16 14:41: Activated Partial Thromboplast Time 31, Anion Gap 10, BUN/Creatinine Ratio 15, Blood Urea Nitrogen 25H, Calcium Level 9.0, Carbon Dioxide Level 21, Chloride Level 104, Creatinine 1.66H, Estimat Glomerular Filtration Rate 32, Glucose Level 180H, Hematocrit 35, Hemoglobin 11.6, INR Comment 1.1, Mean Corpuscular Hemoglobin 29, Mean Corpuscular Hemoglobin Concent 33, Mean Corpuscular Volume 87, Mean Platelet Volume 9.0, Platelet Count 489H, Potassium Level 4.1, Prothrombin Time 14.0, Red Blood Count 4.00L, Red Cell Distribution Width 15.3H , Sodium Level 135, White Blood Count 11.5H 03/29/16 16:12: Glucometer 206H 03/29/16 20:45: Glucometer 239H 03/30/16 05:53: Glucometer 173H Microbiology 03/09/16 C. difficile GDH Antigen & Toxins - Final, Complete 03/28/16 Urine Culture - Preliminary, Resulted NO GROWTH Assessment/Plan Assessment/Plan Assess & Plan/Chief Complaint left below the knee amputation. Diabetes. Peripheral vascular disease. Depression history. Hypertension history. . 03/11/16 left below knee amputation. Diabetes. Peripheral vascular disease. History of hypertension. C. difficile. Hypotensive. Health lisinopril. . Left knee below amputation. Diabetes. Peripheral vascular disease. History of atrial fibrillation. Patient in sinus rhythm. Hypotension. C. difficile. Diarrhea improving. . 03/15/16. Left below the knee amputation. Diabetes. Peripheral vascular disease. Depression history. Atrial fib. Blood pressure goodt and heart rate within normal limits. . 03/16/16. Left below the knee amputation. Peripheral vascular disease. Diabetes. C. difficile. History of atrial fibrillation. Diarrhea better. Potassium 3.3 Will replace. Patient has renal insufficiency. . 03/17/16. Left below the knee amputation. Diabetes. Peripheral vascular disease. Depression history. Patient doing better. Patient happy. Patient improving. . 03/18/16. Left below the knee amputation. Diabetes. 4 vascular disease. Depression history. UA shows infection. C. difficile. To put on antibiotics only for 2 days when get sensitivity. . 03/21/16. Left below the knee amputation. C. difficile. Stools are better. Diabetes. Peripheral vascular disease. To check UA tomorrow. . 02/3116. Left below the knee amputation. Diabetes. Peripheral vascular disease. Hypertension history. Patient doing better and happy. infection nitrate negative now done today. . 03/23/16. infection with different organism now. Waiting for sensitivity. Patient doing much better. Patient positive. Patient hopping 6 steps. Wound is healing. Patient in the right direction . 03/24/16. Left below the knee amputation. Diabetes. Peripheral vascular disease. Depression. Patient doing better. Patient improving. . 03/25/16 area Left below the knee amputation. Diabetes. Peripheral vascular disease. Depression. Patient is improving and feeling better about herself. . 03/28/16. Left below the knee amputation. Diabetes under better control. Peripheral vascular disease. infection to check urine today. Depression history. Hypertension. . 03/29/16. Patient worried about toe. Toe has some redness to it. To do arterial Doppler . Guest Relations Receptionist to get involved again. To start on antibiotics. Patient not to smoke. Left below the knee amputation. Diabetes. Peripheral vascular disease. Depression. . . Left knee below amputation. Diabetes. Peripheral vascular disease. Depression. Hypertension Diagnosis/Problems: Clinical Quality Measures DVT/VTE Risk/Contraindication: Risk Factor Score Per Nursin RFS Level Per Nursing on Admit: 4+=Very High URSULA RENEE DO Mar 30, 2016 8:01 am
[2016-03-30] MEDS ORDERED: LIDOCAINE 1% INJ 20 ML (XYLOCAINE) VIAL ONE (08:11)
[2016-03-30] MEDS ORDERED: NS IV 1000 ML 1,000 ML ONE (08:11)
[2016-03-30] MEDS ORDERED: HEParin (CATH LAB) 0 ML IV ONE (08:12)
[2016-03-30 08:45] LABS: BASOPHILS # (AUTO) 0.1 10^3/uL (0.0-0.1); BASOPHILS % (AUTO) 1 % (0-10); EOSINOPHILS # (AUTO) 0.3 10^3/uL (0.0-0.3); EOSINOPHILS % (AUTO) 3 % (0-10); LYMPHOCYTES # (AUTO) 2.3 X 10^3 (1.0-4.0); LYMPHOCYTES % (AUTO) 22 % (12-44); MEAN CORPUSCULAR HEMOGLOBIN 29 PG (25-34); MEAN CORPUSCULAR HGB CONC 33 G/DL (32-36); MEAN CORPUSCULAR VOLUME 88 FL (80-99); MONOCYTES # (AUTO) 0.5 X 10^3 (0.0-1.0); MONOCYTES % (AUTO) 5 % (0-12); NEUTROPHILS # (AUTO) 7.1 X 10^3 (1.8-7.8); NEUTROPHILS % (AUTO) 68 % (42-75); PLATELET COUNT 475 10^3/uL (130-400); RED BLOOD COUNT 4.01 10^6/uL (4.35-5.85); RED CELL DISTRIBUTION WIDTH 15.3 % (10.0-14.5); WHITE BLOOD COUNT 10.4 10^3/uL (4.3-11.0)
--- NOTE | 2016-03-30 08:45 | Cardiology Progress Note ---
Subjective Subjective/Events-last exam Patient is with PT. No new complaints. Spoke with her about postponing peripheral angiogram secondary to renal function. Denies any CP or dyspnea. Objective-Cardiology Exam Last Set of Vital Signs Vital Signs 03/30/16 06:13 Temp 98.1 Pulse 93 Resp 18 B/P 115/77 Pulse Ox 97 O2 Delivery Room Air Capillary Refill : Less Than 3 Seconds I&O Intake and Output 03/30/16 00:00 Intake Total 1600 ml Output Total 500 ml Balance 1100 ml Intake Oral 1600 ml Output Urine Total 500 ml # Urine Diapers 3 # Bowel Movements 4 General: Alert, No Acute Distress HEENT: Atraumatic Neck: Supple, No JVD, No Thyromegaly Lungs: Normal Air Movement Heart: Regular Rate, Normal S1, Normal S2, No Murmurs Abdomen: Normal Bowel Sounds, Soft, No Tenderness Extremities: No Clubbing, No Cyanosis Skin: Other (Sacral wounds resolved; L knee, stable eschar, 1.0 x 1.4 x 0.1 cm , min. drainage.) Neuro: Normal Speech, Strength at 5/5 X4 Ext, Other (mild weakness RLE) Psych/Mental Status: Mental Status NL Results Lab Laboratory Tests 03/29/16 14:41 A/P-Cardiology Admission Diagnosis Hypotension Paroxysmal atrial fibrillation Hyperlipidemia Peripheral arterial disease Diabetes mellitus Assessment/Plan Hypotension, multifactorial, improving, better at this time, continue to monitor Right leg swelling, extensive peripheral arterial disease, ROSIE 0.76, ultrasound was abnormal, patient is fairly concerned about her leg. I will continue to hydrate with IVF's today, reeval lab in the morining. Will proceed with peripheral angiogram possible angioplasty tomorrow if renal function is improved. Chronic renal insufficiency- Continue with IVF"s today. Will reevaluate in the morning. Paroxysmal atrial fibrillation, reporting episode of atrial fibrillation during her hospital stay in January at [facility]. She is not on oral anticoagulation, no signs of bleeding. Probably transient episode of atrial fibrillation. She denied any previous history prior to her surgery. No syncope was reported. Currently in sinus rhythm. Continue to monitor C. difficile colitis, improved, off isolation at this time. Continue to monitor Peripheral arterial disease, extensive, continue to monitor closely. Patient complaining of RLE claudication pain, increased edema in right foot. ROSIE on right side 0.76. Continue to monitor. 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 Anemia, monitor H&H Hyperlipidemia, maintained on Lipitor. Monitor lipids Diabetes mellitus, followed and managed by primary care physician Tobaccoism, educated in length on smoking cessation Depression, anxiety. Managed by primary care physician Debility, receiving physical therapy Clinical Quality Measures DVT/VTE Risk/Contraindication: Risk Factor Score Per Nursin RFS Level Per Nursing on Admit: 4+=Very High LINH WALLACE Mar 30, 2016 08:45
[2016-03-30 09:03] LABS: CALCIUM 8.9 MG/DL (8.5-10.1); CREATININE SERUM 1.49 MG/DL (0.60-1.30); POTASSIUM 4.2 MMOL/L (3.6-5.0)
[2016-03-30 09:38] LABS: ANISOCYTOSIS SLIGHT; BAND NEUTROPHILS 0 %; BASOPHILS % (MANUAL) 1 %; EOSINOPHILS % (MANUAL) 3 %; LYMPHOCYTES % (MANUAL) 21 %; NEUTROPHILS % (MANUAL) 69 %
--- NOTE | 2016-03-30 09:45 | Occupational Ther Daily Note ---
OT Current Status-Daily Note Subjective Pt in bed, agrees to treatment. No c/o pain. Disappointed she will not be having procedure today. Mental Status/Objective Functional [place] Measure 0=Not Assessed/NA 4=Minimal Assistance 1=Total Assistance 5=Supervision or Setup 2=Maximal Assistance 6=Modified [place] 3=Moderate Assistance 7=Complete [place] ADL-Treatment Pt transferred w/c to [facility] with CGA using FWW. Pt able to pull pants down and complete toileting hygiene, but requires assist to pull pants up on left side after toileting. Transfer BSC to [facility] with CGA. Sit to supine with modified independence. Functional [place] Measure 0=Not Assessed/NA 4=Minimal Assistance 1=Total Assistance 5=Supervision or Setup 2=Maximal Assistance 6=Modified [place] 3=Moderate Assistance 7=Complete IndependenceIRFPAI Quality Coding Scale 6 Independent with activity with or without an assistive device 5 Patient requires set up or clean up by helper. Patient completes activity by themselves 4 Supervision or touching assist (CGA). [place] provide cues , steadying assist 3 The helper provides less than half the effort to complete the activity 2 The helper provides more than half the effort to complete the activity 1 Dependent. The helper does all the effort to complete an activity 7 Patient refused to complete or attempt activity 9 The patient did not perform the activity before the current illness or injury 88 Not attempted due to Medical conditions or safety concerns Toileting Hygiene (QC): 3 Toileting (FIM): 3 Toilet/Commode Transfer (FIM): 4 Toilet Transfer (QC): 4 (CGA) Other Treatment Pt supine to sit with modified independence. Transfer to w/c with CGA using FWW. Pt performed w/c mobility to therapy gym without assistance. Arm bike x13 minutes to increase overall strength and activity tolerance needed for ADLs and transfers. Pt completed activity with moderate resistance. No rest breaks needed. Bilateral UE exercises completed to increase strength needed for functional tasks. Pt performed shoulder flexion, forward press, shoulder press, biceps curls, and wrist flex/ext x20 reps with 2# dowel sandra. Brief rest breaks between exercises. Peg activity with bilateral hands with 2# wrist weights in place to increase strength and fine motor coordination. Pt returned to room, resting in bed with needs met and spouse present after session. OT Short Term Goals Short Term Goals Time Frame: Mar 17, 2016 Bathing(FIM): 4 Lower Body Dressing(FIM): 3 Toileting(FIM): 3 Toilet/Commode Transfer(FIM): 4 Shower Transfer(FIM): 3 Additional Short Term Goals: 1-Demonstrate ADL Tasks, 2-Verbalize Understanding , 3-ImproveStrength/Mahad 1=Demonstrate adherence to instructed precautions during ADL tasks. 2=Patient will verbalize/demonstrate understanding of assistive devices/ modifications for ADL. 3=Patient will improve strength/tolerance for activity to enable patient to perform ADL's. OT Skilled Nursing Goals Foam Charger Goals Time Frame: Mar 31, 2016 Eating (FIM): 6 Eating (QC): 6 Oral Hygiene (QC): 6 Grooming(FIM): 6 Bathing(FIM): 5 Shower/Bathe Self (QC): 4 Upper Body Dressing(FIM): 6 Upper Body Dressing (QC): 6 Lower Body Dressing(FIM): 5 Lower Body Dressing (QC): 4 On/Off Footwear (QC): 5 Toileting(FIM): 5 Toileting Hygiene (QC): 4 Toilet/Commode Transfer(FIM): 5 Toilet/Commode Transfer (QC): 4 Shower Transfer(FIM): 4 Additional Goals: 1-Demonstrate ADL Tasks, 2-Verbalize Understanding, 3- ImproveStrength/Mahad 1=Demonstrate adherence to instructed precautions during ADL tasks. 2=Patient will verbalize/demonstrate understanding of assistive devices/ modifications for ADL. 3=Patient will improve strength/tolerance for activity to enable patient to perform ADL's. OT Education/Plan Problem List/Assessment Pt demonstrates decreased mobility, strength, activity tolerance, and ADL performance. Pt to benefit from skilled OT intervention for ADL training, transfers, strengthening, adaptive equipment training as needed, and home safety education to maximize level of function and allow safe discharge. Discharge Recommendations Plan/Recommendations: Continue POC Treatment Plan/Plan of Care Patient would benefit from OT for education, treatment and training to promote independence in ADL's, mobility, safety and/or upper extremity function for ADL' s. Plan of Care: ADL Retraining, Functional Mobility, Group Exercise/Act as Ind, UE Funct Exercise/Act Treatment Duration: Mar 31, 2016 Visits Per Week: 10-11 Minutes/Day (M-F): 60-90 Minutes/Day (Sat/[place]): PRN Agreement: Yes Rehab Potential: Fair Time/GCodes Start Time: 08:00 Stop Time: 09:00 Total Time Billed (hr/min): 60 Billed Treatment Time 1 visit, ADL(15minutes), EXx3(45minutes) OLIVIA NELSON OT Mar 30, 2016 09:45
--- NOTE | 2016-03-30 10:49 | Physical Therapy Daily Note ---
PT Daily Note-Current Subjective Patient in bed sleeping pre tx, agrees to PT after waking. Patient has no complaints about pain. Patient will need assist getting dressed so she can go to the therapy gym. Appearance Patient sitting EOB post tx with nurse call, phone, tray, all needs met. in the room. Mental Status Patient Orientation: Normal For Age Transfers Functional [place] Measure 0=Not Assessed/NA 4=Minimal Assistance 1=Total Assistance 5=Supervision or Setup 2=Maximal Assistance 6=Modified [place] 3=Moderate Assistance 7=Complete IndependenceIRFPAI Quality Coding Scale 6 Independent with activity with or without an assistive device 5 Patient requires set up or clean up by helper. Patient completes activity by themselves 4 Supervision or touching assist (CGA). [place] provide cues , steadying assist 3 The helper provides less than half the effort to complete the activity 2 The helper provides more than half the effort to complete the activity 1 Dependent. The helper does all the effort to complete an activity 7 Patient refused to complete or attempt activity 9 The patient did not perform the activity before the current illness or injury 88 Not attempted due to Medical conditions or safety concerns Transfers (B, C, W/C) (FIM): 4 Scootin Rollin Supine to/from Sit: 4 Sit to/from Stand: 4 Bed to/from Chair: 4 Often needs cues for safety and hand placement, she will often sit without reaching back with her hands. Gait Training Gait (FIM): 1 Distance: 10'x2 Gait Level of Assist: 4 Gait Persons Needed: 1 Gait Assistive Device: FWW Patient has not been walking as far lately due to hurting her toes. Wheelchair Training Does the Pt Use a Wheelchair?: Yes Wheelchair (FIM): 6 Distance: 150'x2 Type of Wheelchair: Manual Exercises prone hip flexor stretching 5 min, residual limb quad sets and hip abduction x 20 NuStep Minutes: 15 NuStep Workload: 5 Treatments wheelchair mobility, bed mobility and transfers, ambulation, functional strengthening, stretching Assessment Current Status: Fair Progress Patient has made some progress with mobility but has been very slow. PT Short Term Goals Short Term Goals Time Frame: Mar 17, 2016 Gait (FIM): 1 Gait Distance Comment: 10' Gait Level of Assist: 4 Gait Assistive Device: FWW Wheelchair Distance: 150' PT Ghost Writer Goals Jail Goals PT Ghost Writer Goals Time Frame: Mar 31, 2016 Transfers (B,C,W/C) (FIM): 5 Sit to Lying (QC): 4 Lying-Sitting on Side/Bed(QC): 4 Sit to Stand (QC): 4 Rollin Roll Left to Right (QC): 4 Chair/[id number] Xfer(QC): 4 Car Transfer (QC): 4 Gait (FIM): 1 Distance: 20' Walk 10 feet (QC): 4 Walk 10ft-Uneven Surface(QC): 4 Walk 50ft with 2 Turns (QC): 88 Walk 150 ft (QC): 88 Gait Level of Assist: 5 Gait Assistive Device: FWW Wheelchair (FIM): 6 Distance: 150' Wheelchair Level of Assist: 6 Wheel 50 feet with 2 turns (QC: 6 Stairs (FIM): 2 # of Steps: 4 1 Step (curb) (QC): 4 4 Steps (QC): 4 12 Steps (QC): 88 Stairs Level Of Assist: 4 Picking up an Object (QC): 88 PT Plan Problem List Problem List: Activity Tolerance, Functional Strength, Safety, Balance, Gait, Transfer, Bed Mobility, ROM Treatment/Plan Treatment Plan: Continue Plan of Care Treatment Plan: Bed Mobility, Education, Functional Activity Mahad, Functional Strength, Group Therapy, Gait, Safety, Therapeutic Exercise, Transfers Treatment Duration: Mar 31, 2016 Visits Per Week: 10-11 Minutes/Day (M-F): 60-90 Minutes/Day (Sat/[place]): 15-30 Safety Risks/Education Patient Education: Gait Training, Transfer Techniques, W/C Management, Safety Issues Teaching Recipient: Patient Teaching Methods: Demonstration, Discussion Response to Teaching: Reinforcement Needed Time/GCodes Time In: 945 Time Out: 1045 Total Billed Treatment Time: 60 Total Billed Treatment 1 visit FA 15 min GT 15 min EX 15 min WCH 15 min GEM DANIELSON PT Mar 30, 2016 10:49
[2016-03-30] MEDS: GABAPENTIN 600 MG (NEURONTIN) TAB PO SCH ×3 (14:21→21:09)
[2016-03-30] MEDS: DILTIAZEM 30 MG (CARDIZEM) TAB PO SCH ×3 (14:22→21:09)
[2016-03-30] MEDS: CEPHALEXIN 250 MG (KEFLEX) CAP PO SCH ×3 (14:22→21:09)
[2016-03-30] MEDS: DULoxetine 30 MG (CYMBALTA) CAP PO SCH (14:22)
[2016-03-30] MEDS: MUPIROCIN 2% OINT 22 GM (BACTROBAN) TUBE TOP SCH ×2 (14:40→21:10)
--- NOTE | 2016-03-30 14:57 | Therapy Group Daily Note ---
Therapy Daily Group Note Patient Education Topic Home Safety Exercises LE Seated Exercise, UE Exercise Other/Notes Pt was transported self to group therapy in [facility] via w/c. OT/PT group consisted of introductions (name, first car and what happened to it), socialization, ARU description, UE/LE seated exercises, problem solving and critical thinking activity and alert systems that can be used for safety in the home. Pt actively participated in group. Pt contributed to discussions with other patients. Pt was able to gather information and make an informed answer to questions. Pt completed UE/LE exercises well and followed instructions. After therapy, pt sitting in w/c with present in room. Call light/ phone in reach. All needs met in room. Start Time: 13:00 Stop Time: 14:15 Total Billed Treatment Time: 75 Total Billed Treatment 1-GRP ANA HWANG Mar 30, 2016 14:57
--- NOTE | 2016-03-30 17:10 | Cardiology Progress Note ---
Subjective Subjective/Events-last exam patient is laying down in bed, feeling better, denied any chest pain, procedure was delayed due to renal function Review of Systems General: No Chills, No Night Sweats, No Fatigue, No Malaise, No Appetite, No Other HEENT: No Head Aches, No Visual Changes, No Eye Pain, No Ear Pain, No Dysphasia , No Sinus Congestion, No Post Nasal Drip, No Sore Throat, No Other Pulmonary: No Dyspnea, No Cough, No Pleuritic Chest Pain, No Other Cardiovascular: No: Chest Pain, Edema, Lt Headedness, Orthopnea, Other, Palpitations, Paroxysmal Noc. Dyspnea Objective-Cardiology Exam Last Set of Vital Signs Vital Signs 03/30/16 03/30/16 06:13 08:30 Temp 98.1 Pulse 93 Resp 18 B/P 115/77 Pulse Ox 97 O2 Delivery Room Air Capillary Refill : Less Than 3 Seconds I&O Intake and Output 03/30/16 00:00 Intake Total 1600 ml Output Total 500 ml Balance 1100 ml Intake Oral 1600 ml Output Urine Total 500 ml # Urine Diapers 3 # Bowel Movements 4 General: Alert, No Acute Distress HEENT: Atraumatic Neck: Supple, No JVD, No Thyromegaly Lungs: Normal Air Movement Heart: Regular Rate, Normal S1, Normal S2, No Murmurs Abdomen: Normal Bowel Sounds, Soft, No Tenderness Extremities: No Clubbing, No Cyanosis Skin: Other (Sacral wounds resolved; L knee, stable eschar, 1.0 x 1.4 x 0.1 cm , min. drainage.) Neuro: Normal Speech, Strength at 5/5 X4 Ext, Other (mild weakness RLE) Psych/Mental Status: Mental Status NL Results Lab Laboratory Tests 03/30/16 08:35 A/P-Cardiology Admission Diagnosis Hypotension Paroxysmal atrial fibrillation Hyperlipidemia Peripheral arterial disease Diabetes mellitus Assessment/Plan Hypotension, multifactorial, improving, better at this time, continue to monitor Right leg swelling, extensive peripheral arterial disease, ROSIE 0.76, ultrasound was abnormal, patient is fairly concerned about her leg. I will continue to hydrate with IVF's today, monitor lab in the morning. Will proceed with peripheral angiogram possible angioplasty tomorrow if renal function is improved. Chronic renal insufficiency- Continue with IVF"s today. Will reevaluate in the morning. Paroxysmal atrial fibrillation, reporting episode of atrial fibrillation during her hospital stay in January at [facility]. She is not on oral anticoagulation, no signs of bleeding. Probably transient episode of atrial fibrillation. She denied any previous history prior to her surgery. No syncope was reported. Currently in sinus rhythm. Continue to monitor C. difficile colitis, improved, off isolation at this time. Continue to monitor Peripheral arterial disease, extensive, continue to monitor closely. Patient complaining of RLE claudication pain, increased edema in right foot. ROSIE on right side 0.76. Continue to monitor. 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 Anemia, monitor H&H Hyperlipidemia, maintained on Lipitor. Monitor lipids Diabetes mellitus, followed and managed by primary care physician Tobaccoism, educated in length on smoking cessation Depression, anxiety. Managed by primary care physician Debility, receiving physical therapy Clinical Quality Measures DVT/VTE Risk/Contraindication: Risk Factor Score Per Nursin RFS Level Per Nursing on Admit: 4+=Very High MILADY SHANNON MD Mar 30, 2016 17:10
--- NOTE | 2016-03-30 17:39 | Podiatry Progress Note ---
Standard Progress Note Progress Notes/Assess & Plan Progress/Assessment & Plan The patient reports no pain to the right foot. She states that the right 3rd toe looks "red". No reported F/C/N/V There is a dressing to the right 3rd digit. There is some erythema to the dorsum of the right 3rd digit at the distal phalanx consistent with trauma to the nail bed. There is no proximal streaking. There is a dry eschar to the right 3rd digit nail bed. Non-palpable pedal pulses right. A/P: Onycholysis right 3rd digit, Neuropathy, Benjamin Grade one ulcer R3 Toe Cleaned wound, Continue with topical antibiotic (recommend Silvadene cream) and gauze dressing. Continue oral antibiotics for 5 days. Final Diagnosis Benjamin Grade 1 ulceration right 3rd digit. DM Neuropathy TITO CALVERT DPM Mar 30, 2016 17:39
[2016-03-30] MEDS: oxyCODONE/APAP 5/325MG (PERCOCET 5) TABLET PO PRN ×2 (17:47→21:47)
[2016-03-30 18:56] VITALS: BP 122/56
--- NOTE | 2016-03-30 19:57 | PM & R (SOAP) Progress Note ---
Subjective Subjective/Events-last exam Patient was seen in her room earlier today Discussed case with DR Christina this AM Stent for impaired surgery this AM scrubbed due to low GFR IVFS being given and then will f/u with Card in AM re possible recheduling of revascularization procedure.Patiewnt Min assist for transfers Objective Exam Last Set of Vital Signs Vital Signs Date Time Temp Pulse Resp B/P Pulse Ox O2 Delivery O2 Flow Rate FiO2 03/30/16 18:56 98.1 99 20 122/56 97 Room Air Capillary Refill : Less Than 3 Seconds I&O Intake and Output 03/30/16 00:00 Intake Total 1600 ml Output Total 500 ml Balance 1100 ml Intake Oral 1600 ml Output Urine Total 500 ml # Urine Diapers 3 # Bowel Movements 4 General: Alert, No Acute Distress HEENT: Atraumatic Neck: Supple, No JVD, No Thyromegaly Lungs: Normal Air Movement Heart: Regular Rate, Normal S1, Normal S2, No Murmurs Abdomen: Normal Bowel Sounds, Soft, No Tenderness Extremities: No Clubbing, No Cyanosis Skin: Other (Sacral wounds resolved; L knee, stable eschar, 1.0 x 1.4 x 0.1 cm , min. drainage.) Neuro: Normal Speech, Strength at 5/5 X4 Ext, Other (mild weakness RLE) Psych/Mental Status: Mental Status NL Results Lab Laboratory Tests 03/27/16 21:13: Glucometer 237H 03/28/16 05:21: Glucometer 196H 03/28/16 11:32: Glucometer 222H 03/28/16 12:35: Urine Bacteria TRACE, Urine Bilirubin NEGATIVE, Urine Casts NONE, Urine Clarity CLEAR, Urine Color YELLOW, Urine Crystals NONE, Urine Culture Indicated YES, Urine Glucose (UA) NEGATIVE, Urine Ketones NEGATIVE, Urine Leukocyte Esterase 1+ H, Urine Mucus NEGATIVE, Urine Nitrite NEGATIVE, Urine Protein NEGATIVE, Urine RBC RARE, Urine RBC (Auto) NEGATIVE, Urine Specific [place] 1.010L, Urine Squamous Epithelial Cells 10-25H, Urine Urobilinogen NORMAL, Urine WBC 5-10H, Urine pH 6.5 03/28/16 16:14: Glucometer 241H 03/28/16 20:07: Glucometer 179H 03/29/16 04:28: Glucometer 155H 03/29/16 05:02: Anion Gap 11, BUN/Creatinine Ratio 20, Blood Urea Nitrogen 25H, Calcium Level 9.5, Carbon Dioxide Level 18L, Chloride Level 106, Creatinine 1.28, Estimat Glomerular Filtration Rate 43, Glucose Level 151H, Hematocrit 37, Hemoglobin 12.1, Magnesium Level 2.1, Mean Corpuscular Hemoglobin 29, Mean Corpuscular Hemoglobin Concent 32, Mean Corpuscular Volume 88, Mean Platelet Volume 9.2, Platelet Count 532H, Potassium Level 4.3, Red Blood Count 4.22L, Red Cell Distribution Width 15.6H, Sodium Level 135, White Blood Count 10.3 03/29/16 10:59: Glucometer 176H 03/29/16 14:41: Activated Partial Thromboplast Time 31, Anion Gap 10, BUN/Creatinine Ratio 15, Blood Urea Nitrogen 25H, Calcium Level 9.0, Carbon Dioxide Level 21, Chloride Level 104, Creatinine 1.66H, Estimat Glomerular Filtration Rate 32, Glucose Level 180H, Hematocrit 35, Hemoglobin 11.6, INR Comment 1.1, Mean Corpuscular Hemoglobin 29, Mean Corpuscular Hemoglobin Concent 33, Mean Corpuscular Volume 87, Mean Platelet Volume 9.0, Platelet Count 489H, Potassium Level 4.1, Prothrombin Time 14.0, Red Blood Count 4.00L, Red Cell Distribution Width 15.3H , Sodium Level 135, White Blood Count 11.5H 03/29/16 16:12: Glucometer 206H 03/29/16 20:45: Glucometer 239H 03/30/16 05:53: Glucometer 173H 03/30/16 08:35: Anion Gap 12, Anisocytosis SLIGHT, BUN/Creatinine Ratio 15, Band Neutrophils 0, Basophils # (Auto) 0.1, Basophils % (Manual) 1, Basophils (%) (Auto) 1, Blood Urea Nitrogen 23H, Calcium Level 8.9, Carbon Dioxide Level 17L, Chloride Level 107, Creatinine 1.49H, Eosinophils # (Auto) 0.3, Eosinophils % (Manual) 3, Eosinophils (%) (Auto) 3, Estimat Glomerular Filtration Rate 36, Glucose Level 202H, Hematocrit 35, Hemoglobin 11.6, Lymphocytes # (Auto) 2.3, Lymphocytes % ( Manual) 21, Lymphocytes (%) (Auto) 22, Mean Corpuscular Hemoglobin 29, Mean Corpuscular Hemoglobin Concent 33, Mean Corpuscular Volume 88, Mean Platelet Volume 9.0, Monocytes # (Auto) 0.5, Monocytes % (Manual) 6, Monocytes (%) (Auto ) 5, Neutrophils # (Auto) 7.1, Neutrophils % (Manual) 69, Neutrophils (%) (Auto ) 68, Platelet Count 475H, Potassium Level 4.2, Red Blood Count 4.01L, Red Cell Distribution Width 15.3H, Sodium Level 136, White Blood Count 10.4 03/30/16 11:10: Glucometer 186H 03/30/16 16:13: Glucometer 243H Microbiology 03/09/16 C. difficile GDH Antigen & Toxins - Final, Complete 03/28/16 Urine Culture - Final, Complete Assessment/Plan Assessment Left BKA 02-01-16 OSH for gangrenous left foot Postop C DIF bowel colitis associated with sepsis treated at OSH-now on Vanco for ongoing treatment-improved Mild Hypokalemia Mild postop Anemia IDDM controlled HTN with hx of afib now sinus with hypotension depression on meds Tobaccoism declines Smoking cessation Trace edema rt ankle Uncertain if patient would tolerate Freddy hose-Lasix prn ordered-one dose ordered with improvement-resolved UTI with fever now afebrile on Vanco Check sensitivity-done Controlled descent to floor 03-24-16 Onychomycosis of toenails Peripheral Vasc d with claudcation complaints RLE-awaiting possible stent Plan Continue PT/OT DR Barrios to see re cardiac meds with echo ordered-done appreciate his consult and f/u-awaiting f/u labsto clear for stent placement RLE recheck labs-done Lasix times one done-edema improved Completed course of Flagyl for Cdif now on course of Vanco with meds adjusted to promote formed st F/U re sensitivity of Gram Negative rods.-done-now repeat pending Apprediate DR sharp notes and orders Podiatry consult for diabetic foot care-done SW contacted me last week re letter to support additional financial assistance from [place] so that she may have a home to go to -signed Recheck with patient re resolution of neck pain-improved F/U with Dr Christina and Sophie re further eval and treatment of Periheral Vasc D. RLE TEam Conference held earlier today -See report for full functional update and POC and IRMA MOORE MD Mar 30, 2016 19:57
[2016-03-30] MEDS: ATORVASTATIN 40 MG (LIPITOR) TABLET PO SCH (21:09)
[2016-03-30] MEDS: ENOXAPARIN 40 MG/0.4 ML (LOVENOX) SYR SC SCH (21:09)
[2016-03-30] MEDS: inSUlin DETERMIR 1 UNIT/0.01 ML (LEVEMIR) CHARGE PER UNIT SQ SCH (21:10)
[2016-03-31] MEDS: NS IV 1000 ML 1,000 ML IV SCH ×3 (01:17→18:58)
[2016-03-31] MEDS: oxyCODONE/APAP 5/325MG (PERCOCET 5) TABLET PO PRN ×2 (03:42→21:32)
[2016-03-31 04:40] VITALS: BP 118/78
[2016-03-31 05:38] LABS: BASOPHILS # (AUTO) 0.1 10^3/uL (0.0-0.1); BASOPHILS % (AUTO) 2 % (0-10); EOSINOPHILS # (AUTO) 0.3 10^3/uL (0.0-0.3); EOSINOPHILS % (AUTO) 4 % (0-10); LYMPHOCYTES # (AUTO) 2.4 X 10^3 (1.0-4.0); LYMPHOCYTES % (AUTO) 31 % (12-44); MEAN CORPUSCULAR HEMOGLOBIN 29 PG (25-34); MEAN CORPUSCULAR HGB CONC 32 G/DL (32-36); MEAN CORPUSCULAR VOLUME 88 FL (80-99); MEAN PLATELET VOLUME 9.2 FL (7.4-10.4); MONOCYTES # (AUTO) 0.6 X 10^3 (0.0-1.0); MONOCYTES % (AUTO) 7 % (0-12); NEUTROPHILS # (AUTO) 4.3 X 10^3 (1.8-7.8); NEUTROPHILS % (AUTO) 56 % (42-75); PLATELET COUNT 429 10^3/uL (130-400); RED BLOOD COUNT 3.81 10^6/uL (4.35-5.85); RED CELL DISTRIBUTION WIDTH 15.2 % (10.0-14.5); WHITE BLOOD COUNT 7.6 10^3/uL (4.3-11.0)
[2016-03-31 05:55] LABS: CALCIUM 8.6 MG/DL (8.5-10.1); CREATININE SERUM 1.12 MG/DL (0.60-1.30); POTASSIUM 3.8 MMOL/L (3.6-5.0)
[2016-03-31] MEDS: inSUlin (REGULAR) HUMAN 1 UNIT/0.01 ML (CHARGE PER UNIT) SC SCH ×4 (06:00→20:47)
[2016-03-31] MEDS ORDERED: LIDOCAINE 1% INJ 20 ML (XYLOCAINE) VIAL ONE (07:56)
[2016-03-31] MEDS ORDERED: HEParin (CATH LAB) 2,000 ML IV ONE (07:56)
[2016-03-31] MEDS: DOXYCYCLINE 100 MG (VIBRAMYCIN) TABLET PO SCH ×2 (08:00→17:00)
--- NOTE | 2016-03-31 08:22 | Progress Note (SOAP) ---
Subjective Subjective/Events-last exam patient's kidney function is better today. Patient had procedure today. Objective Exam Vital Signs Date Time Temp Pulse Resp B/P Pulse Ox O2 Delivery O2 Flow Rate FiO2 03/31/16 04:40 97.7 87 20 118/78 97 Room Air 03/30/16 21:00 Room Air 03/30/16 18:56 98.1 99 20 122/56 97 Room Air 03/30/16 08:30 Room Air I & O 03/31/16 07:00 Intake Total 2460 ml Balance 2460 ml Capillary Refill : Less Than 3 Seconds General Appearance: No Apparent Distress WD/WN HEENT: Normal ENT Inspection Neck: Full Range of Motion Non Tender Respiratory: Chest Non Tender Lungs Clear Normal Breath Sounds No Accessory Muscle Use No Respiratory Distress Cardiovascular: Regular Rate, Rhythm Gastrointestinal: non tender soft Results Lab Laboratory Tests 03/30/16 08:35 03/31/16 04:50 Laboratory Tests 03/30/16 08:35: Anion Gap 12, Anisocytosis SLIGHT, BUN/Creatinine Ratio 15, Band Neutrophils 0, Basophils # (Auto) 0.1, Basophils % (Manual) 1, Basophils (%) (Auto) 1, Blood Urea Nitrogen 23H, Calcium Level 8.9, Carbon Dioxide Level 17L, Chloride Level 107, Creatinine 1.49H, Eosinophils # (Auto) 0.3, Eosinophils % (Manual) 3, Eosinophils (%) (Auto) 3, Estimat Glomerular Filtration Rate 36, Glucose Level 202H, Hematocrit 35, Hemoglobin 11.6, Lymphocytes # (Auto) 2.3, Lymphocytes % ( Manual) 21, Lymphocytes (%) (Auto) 22, Mean Corpuscular Hemoglobin 29, Mean Corpuscular Hemoglobin Concent 33, Mean Corpuscular Volume 88, Mean Platelet Volume 9.0, Monocytes # (Auto) 0.5, Monocytes % (Manual) 6, Monocytes (%) (Auto ) 5, Neutrophils # (Auto) 7.1, Neutrophils % (Manual) 69, Neutrophils (%) (Auto ) 68, Platelet Count 475H, Potassium Level 4.2, Red Blood Count 4.01L, Red Cell Distribution Width 15.3H, Sodium Level 136, White Blood Count 10.4 03/30/16 11:10: Glucometer 186H 03/30/16 16:13: Glucometer 243H 03/30/16 20:39: Glucometer 162H 03/31/16 04:50: Anion Gap 10, BUN/Creatinine Ratio 17, Basophils # (Auto) 0.1, Basophils (%) ( Auto) 2, Blood Urea Nitrogen 19H, Calcium Level 8.6, Carbon Dioxide Level 19L, Chloride Level 109H, Creatinine 1.12, Eosinophils # (Auto) 0.3, Eosinophils (%) (Auto) 4, Estimat Glomerular Filtration Rate 51, Glucose Level 173H, Hematocrit 34L, Hemoglobin 10.9L, Lymphocytes # (Auto) 2.4, Lymphocytes (%) (Auto) 31, Mean Corpuscular Hemoglobin 29, Mean Corpuscular Hemoglobin Concent 32, Mean Corpuscular Volume 88, Mean Platelet Volume 9.2, Monocytes # (Auto) 0.6, Monocytes (%) (Auto) 7, Neutrophils # (Auto) 4.3, Neutrophils (%) (Auto) 56, Platelet Count 429H, Potassium Level 3.8, Red Blood Count 3.81L, Red Cell Distribution Width 15.2H, Sodium Level 138, White Blood Count 7.6 03/31/16 04:51: Glucometer 173H Microbiology 03/09/16 C. difficile GDH Antigen & Toxins - Final, Complete 03/28/16 Urine Culture - Final, Complete Assessment/Plan Assessment/Plan Assess & Plan/Chief Complaint left below the knee amputation. Diabetes. Peripheral vascular disease. Depression history. Hypertension history. . 03/11/16 left below knee amputation. Diabetes. Peripheral vascular disease. History of hypertension. C. difficile. Hypotensive. Health lisinopril. . Left knee below amputation. Diabetes. Peripheral vascular disease. History of atrial fibrillation. Patient in sinus rhythm. Hypotension. C. difficile. Diarrhea improving. . 03/15/16. Left below the knee amputation. Diabetes. Peripheral vascular disease. Depression history. Atrial fib. Blood pressure goodt and heart rate within normal limits. . 03/16/16. Left below the knee amputation. Peripheral vascular disease. Diabetes. C. difficile. History of atrial fibrillation. Diarrhea better. Potassium 3.3 Will replace. Patient has renal insufficiency. . 03/17/16. Left below the knee amputation. Diabetes. Peripheral vascular disease. Depression history. Patient doing better. Patient happy. Patient improving. . 03/18/16. Left below the knee amputation. Diabetes. 4 vascular disease. Depression history. UA shows infection. C. difficile. To put on antibiotics only for 2 days when get sensitivity. . 03/21/16. Left below the knee amputation. C. difficile. Stools are better. Diabetes. Peripheral vascular disease. To check UA tomorrow. . 02/3116. Left below the knee amputation. Diabetes. Peripheral vascular disease. Hypertension history. Patient doing better and happy. infection nitrate negative now done today. . 03/23/16. infection with different organism now. Waiting for sensitivity. Patient doing much better. Patient positive. Patient hopping 6 steps. Wound is healing. Patient in the right direction . 03/24/16. Left below the knee amputation. Diabetes. Peripheral vascular disease. Depression. Patient doing better. Patient improving. . 03/25/16 area Left below the knee amputation. Diabetes. Peripheral vascular disease. Depression. Patient is improving and feeling better about herself. . 03/28/16. Left below the knee amputation. Diabetes under better control. Peripheral vascular disease. infection to check urine today. Depression history. Hypertension. . 03/29/16. Patient worried about toe. Toe has some redness to it. To do arterial Doppler . 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 To start on antibiotics. Patient not to smoke. Left below the knee amputation. Diabetes. Peripheral vascular disease. Depression. . . Left knee below amputation. Diabetes. Peripheral vascular disease. Depression. Hypertension. . 03/31/16. Kidney function better. Patient have procedure done today. Left below the knee amputation. Diabetes okay. Peripheral vascular disease. Hypertension history Diagnosis/Problems: Clinical Quality Measures DVT/VTE Risk/Contraindication: Risk Factor Score Per Nursin RFS Level Per Nursing on Admit: 4+=Very High URSULA RENEE DO Mar 31, 2016 08:22
[2016-03-31] MEDS: DULoxetine 30 MG (CYMBALTA) CAP PO SCH (09:00)
[2016-03-31] MEDS: MUPIROCIN 2% OINT 22 GM (BACTROBAN) TUBE TOP SCH ×2 (09:00→21:06)
[2016-03-31] MEDS: DILTIAZEM 30 MG (CARDIZEM) TAB PO SCH ×3 (09:00→20:44)
[2016-03-31] MEDS: GABAPENTIN 600 MG (NEURONTIN) TAB PO SCH ×3 (09:00→20:44)
[2016-03-31] MEDS: CEPHALEXIN 250 MG (KEFLEX) CAP PO SCH ×3 (09:00→20:44)
--- NOTE | 2016-03-31 09:25 | Physical Therapy Rehab Re-Cert ---
PT Re-Certification Form Physical Therapy Treatment Plan: Continue Plan of Care Bed Mobility, Education, Functional Activity Mahad, Functional Strength, Group Therapy, Gait, Safety, Therapeutic Exercise, Transfers Patient needs continued PT to increase ambulation, endurance, and strength to improve functional mobility and independence at home. Treatment Duration: 3 weeks # of days/week 5-6 Visits Per Week: 10-11 Minutes/Day (M-F): 60-90 Minutes/Day (Sat/[place]): 15-30 Patient and/or Family Agrees t: Yes Rehab Potential: Fair PT Short Term Goals Short Term Goals Time Frame: Mar 17, 2016 Gait (FIM): 1 Gait Distance Comment: 10' Gait Level of Assist: 4 Gait Assistive Device: FWW Wheelchair Distance: 150'x2 PT Intermediate Goals Rounder And Backer Goals PT Rounder And Backer Goals Time Frame: Mar 31, 2016 Transfers (B,C,W/C) (FIM): 5 Gait (FIM): 1 Distance: 20' Gait Level of Assist: 5 Gait Assistive Device: FWW Wheelchair (FIM): 6 Distance: 150' Wheelchair Level of Assist: 6 Stairs (FIM): 2 # of Steps: 4 Stairs Level Of Assist: 4 GEM DANIELSON PT Mar 31, 2016 09:25
--- NOTE | 2016-03-31 11:18 | Physical Therapy Daily Note ---
PT Daily Note-Current Subjective Patient in wheelchair pre tx, agrees to PT, no complaints of pain. Appearance Patient sitting EOB post tx with nurse call, phone, in the room. Mental Status Patient Orientation: Normal For Age Attachments: IV Transfers Functional [place] Measure 0=Not Assessed/NA 4=Minimal Assistance 1=Total Assistance 5=Supervision or Setup 2=Maximal Assistance 6=Modified [place] 3=Moderate Assistance 7=Complete IndependenceIRFPAI Quality Coding Scale 6 Independent with activity with or without an assistive device 5 Patient requires set up or clean up by helper. Patient completes activity by themselves 4 Supervision or touching assist (CGA). [place] provide cues , steadying assist 3 The helper provides less than half the effort to complete the activity 2 The helper provides more than half the effort to complete the activity 1 Dependent. The helper does all the effort to complete an activity 7 Patient refused to complete or attempt activity 9 The patient did not perform the activity before the current illness or injury 88 Not attempted due to Medical conditions or safety concerns Transfers (B, C, W/C) (FIM): 4 Sit to/from Stand: 4 Bed to/from Chair: 4 CGA for transfers, needs occasional cues for hand placement and safety, tends to sit without using hands Gait Training Gait (FIM): 1 Distance: 20'x2 Gait Level of Assist: 4 Gait Persons Needed: 1 Gait Assistive Device: FWW hops on right foot, fatigues quickly Wheelchair Training Does the Pt Use a Wheelchair?: Yes Wheelchair (FIM): 5 Distance: 150'x2 Wheelchair Level of Assist: 5 Type of Wheelchair: Manual Exercises LAQ 5 min right side NuStep Minutes: 10 NuStep Workload: 5 Treatments transfers, ambulation, wheelchair mobility, functional strengthening Assessment Current Status: Fair Progress improved endurance and ambulation PT Short Term Goals Short Term Goals Time Frame: Mar 17, 2016 Gait (FIM): 1 Gait Distance Comment: 10' Gait Level of Assist: 4 Gait Assistive Device: FWW Wheelchair Distance: 150'x2 PT Nursing Home Goals Nursing Home Goals PT Nursing Home Goals Time Frame: Mar 31, 2016 Transfers (B,C,W/C) (FIM): 5 Sit to Lying (QC): 4 Lying-Sitting on Side/Bed(QC): 4 Sit to Stand (QC): 4 Rollin Roll Left to Right (QC): 4 Chair/Amo-fh-Jujqc Xfer(QC): 4 Car Transfer (QC): 4 Gait (FIM): 1 Distance: 20' Walk 10 feet (QC): 4 Walk 10ft-Uneven Surface(QC): 4 Walk 50ft with 2 Turns (QC): 88 Walk 150 ft (QC): 88 Gait Level of Assist: 5 Gait Assistive Device: FWW Wheelchair (FIM): 6 Distance: 150' Wheelchair Level of Assist: 6 Wheel 50 feet with 2 turns (QC: 6 Stairs (FIM): 2 # of Steps: 4 1 Step (curb) (QC): 4 4 Steps (QC): 4 12 Steps (QC): 88 Stairs Level Of Assist: 4 Picking up an Object (QC): 88 PT Plan Problem List Problem List: Activity Tolerance, Functional Strength, Safety, Balance, Gait, Transfer, Bed Mobility, ROM Treatment/Plan Treatment Plan: Continue Plan of Care Treatment Plan: Bed Mobility, Education, Functional Activity Mahad, Functional Strength, Group Therapy, Gait, Safety, Therapeutic Exercise, Transfers Treatment Duration: Mar 31, 2016 Visits Per Week: 10-11 Minutes/Day (M-F): 60-90 Minutes/Day (Sat/[place]): 15-30 Safety Risks/Education Patient Education: Gait Training, Transfer Techniques, W/C Management, Safety Issues Teaching Recipient: Patient Teaching Methods: Demonstration, Discussion Response to Teaching: Reinforcement Needed Time/GCodes Time In: 1030 Time Out: 1115 Total Billed Treatment Time: 45 Total Billed Treatment 1 visit EX 15 min WCH 15 min GT 15 min GEM DANIELSON PT Mar 31, 2016 11:18
[2016-03-31] MEDS ORDERED: MIDAZOLAM 5 MG/5 ML (VERSED) VIAL ONE (12:46)
[2016-03-31] MEDS ORDERED: fentaNYL INJECTION 100 MCG/2 ML AMP ONE (12:46)
--- NOTE | 2016-03-31 12:55 | Occupational Ther Daily Note ---
OT Current Status-Daily Note Subjective Pt in bed, agrees to treatment. Pt has no c/o pain Mental Status/Objective Functional [place] Measure 0=Not Assessed/NA 4=Minimal Assistance 1=Total Assistance 5=Supervision or Setup 2=Maximal Assistance 6=Modified [place] 3=Moderate Assistance 7=Complete [place] ADL-Treatment Pt supine to sit with modified independence. Pt donned shorts with minimal assistance to pull up on left side. Transfer to w/c with CGA using FWW. Pt performed w/c mobility to restroom without assistance. Grooming tasks completed with modified independence at w/c level. Pt transferred to [facility] [place]GA with FWW. Pt able to pull pants down and complete toileting hygiene, but requires assist to pull pants up on left side. Functional [place] Measure 0=Not Assessed/NA 4=Minimal Assistance 1=Total Assistance 5=Supervision or Setup 2=Maximal Assistance 6=Modified [place] 3=Moderate Assistance 7=Complete IndependenceIRFPAI Quality Coding Scale 6 Independent with activity with or without an assistive device 5 Patient requires set up or clean up by helper. Patient completes activity by themselves 4 Supervision or touching assist (CGA). [place] provide cues , steadying assist 3 The helper provides less than half the effort to complete the activity 2 The helper provides more than half the effort to complete the activity 1 Dependent. The helper does all the effort to complete an activity 7 Patient refused to complete or attempt activity 9 The patient did not perform the activity before the current illness or injury 88 Not attempted due to Medical conditions or safety concerns Grooming (FIM): 6 Lower Body Dressing (FIM): 4 Toileting (FIM): 3 Toilet/Commode Transfer (FIM): 4 Other Treatment Pt performed w/c mobility to therapy gym without assistance. Pt completed arc activity with bilateral UE with 2# weights in place to increase strength for functional activities. Pt able to complete activity without rest breaks. Bilateral UE exercises to increase strength for transfers and ADLs. Pt performed shoulder flexion, abduction, shoulder press, biceps curls, and triceps extension exercises x20 reps with 2# weights. Occasional rest breaks between exercises. Arm bike x13 minutes to increase overall strength and activity tolerance. Pt completed activity with moderate resistance. No rest breaks needed. Pt performed balloon bat activity with bilateral UE with 2# weights in place to increase strength and activity tolerance. Pt required occasional rest breaks secondary to fatigue. Pt returned to room, in bed with needs met after session. OT Short Term Goals Short Term Goals Time Frame: Mar 17, 2016 Bathing(FIM): 4 Lower Body Dressing(FIM): 3 Toileting(FIM): 3 Toilet/Commode Transfer(FIM): 4 Shower Transfer(FIM): 3 Additional Short Term Goals: 1-Demonstrate ADL Tasks, 2-Verbalize Understanding , 3-ImproveStrength/Mahad 1=Demonstrate adherence to instructed precautions during ADL tasks. 2=Patient will verbalize/demonstrate understanding of assistive devices/ modifications for ADL. 3=Patient will improve strength/tolerance for activity to enable patient to perform ADL's. OT Levee Superintendent Goals Levee Superintendent Goals Time Frame: Mar 31, 2016 Eating (FIM): 6 Eating (QC): 6 Groomin Oral Hygiene (QC): 6 Bathing(FIM): 5 Shower/Bathe Self (QC): 4 Upper Body Dressing(FIM): 6 Upper Body Dressing (QC): 6 Lower Body Dressing(FIM): 5 Lower Body Dressing (QC): 4 On/Off Footwear (QC): 5 Toileting(FIM): 5 Toileting Hygiene (QC): 4 Toilet/Commode Transfer(FIM): 5 Toilet/Commode Transfer (QC): 4 Shower Transfer(FIM): 4 Additional Goals: 1-Demonstrate ADL Tasks, 2-Verbalize Understanding, 3- ImproveStrength/Mahad 1=Demonstrate adherence to instructed precautions during ADL tasks. 2=Patient will verbalize/demonstrate understanding of assistive devices/ modifications for ADL. 3=Patient will improve strength/tolerance for activity to enable patient to perform ADL's. OT Education/Plan Problem List/Assessment Pt demonstrates decreased mobility, strength, activity tolerance, and ADL performance. Pt to benefit from skilled OT intervention for ADL training, transfers, strengthening, adaptive equipment training as needed, and home safety education to maximize level of function and allow safe discharge. Discharge Recommendations Plan/Recommendations: Continue POC Treatment Plan/Plan of Care Patient would benefit from OT for education, treatment and training to promote independence in ADL's, mobility, safety and/or upper extremity function for ADL' s. Plan of Care: ADL Retraining, Functional Mobility, Group Exercise/Act as Ind, UE Funct Exercise/Act Treatment Duration: Mar 31, 2016 Visits Per Week: 10-11 Minutes/Day (M-F): 60-90 Minutes/Day (Sat/[place]): PRN Agreement: Yes Rehab Potential: Fair Time/GCodes Start Time: 09:15 Stop Time: 10:30 Total Time Billed (hr/min): 75 Billed Treatment Time 1 visit, ADL(20minutes), EXx4(55minutes) OLIVIA NELSON OT Mar 31, 2016 12:55
--- NOTE | 2016-03-31 12:57 | PM & R (SOAP) Progress Note ---
Subjective Subjective/Events-last exam Patient was seen in her room this noonhour Discussed case with RN Labs improved with IVFS Stent procedure scheduled for 1 PM today.Patient min assist for transfers Objective Exam Last Set of Vital Signs Vital Signs Date Time Temp Pulse Resp B/P Pulse Ox O2 Delivery O2 Flow Rate FiO2 03/31/16 04:40 97.7 87 20 118/78 97 Room Air Capillary Refill : Less Than 3 Seconds I&O Intake and Output 03/31/16 00:00 Intake Total 3140 ml Output Total 1100 ml Balance 2040 ml Intake Oral 2140 ml IV Total 1000 ml Output Urine Total 1100 ml # Voids 5 # Bowel Movements 6 General: Alert, No Acute Distress HEENT: Atraumatic Neck: Supple, No JVD, No Thyromegaly Lungs: Normal Air Movement Heart: Regular Rate, Normal S1, Normal S2, No Murmurs Abdomen: Normal Bowel Sounds, Soft, No Tenderness Extremities: No Clubbing, No Cyanosis Skin: Other (Sacral wounds resolved; L knee, stable eschar, 1.0 x 1.4 x 0.1 cm , min. drainage.) Neuro: Normal Speech, Strength at 5/5 X4 Ext, Other (mild weakness RLE) Psych/Mental Status: Mental Status NL Results Lab Laboratory Tests 03/28/16 16:14: Glucometer 241H 03/28/16 20:07: Glucometer 179H 03/29/16 04:28: Glucometer 155H 03/29/16 05:02: Anion Gap 11, BUN/Creatinine Ratio 20, Blood Urea Nitrogen 25H, Calcium Level 9.5, Carbon Dioxide Level 18L, Chloride Level 106, Creatinine 1.28, Estimat Glomerular Filtration Rate 43, Glucose Level 151H, Hematocrit 37, Hemoglobin 12.1, Magnesium Level 2.1, Mean Corpuscular Hemoglobin 29, Mean Corpuscular Hemoglobin Concent 32, Mean Corpuscular Volume 88, Mean Platelet Volume 9.2, Platelet Count 532H, Potassium Level 4.3, Red Blood Count 4.22L, Red Cell Distribution Width 15.6H, Sodium Level 135, White Blood Count 10.3 03/29/16 10:59: Glucometer 176H 03/29/16 14:41: Activated Partial Thromboplast Time 31, Anion Gap 10, BUN/Creatinine Ratio 15, Blood Urea Nitrogen 25H, Calcium Level 9.0, Carbon Dioxide Level 21, Chloride Level 104, Creatinine 1.66H, Estimat Glomerular Filtration Rate 32, Glucose Level 180H, Hematocrit 35, Hemoglobin 11.6, INR Comment 1.1, Mean Corpuscular Hemoglobin 29, Mean Corpuscular Hemoglobin Concent 33, Mean Corpuscular Volume 87, Mean Platelet Volume 9.0, Platelet Count 489H, Potassium Level 4.1, Prothrombin Time 14.0, Red Blood Count 4.00L, Red Cell Distribution Width 15.3H , Sodium Level 135, White Blood Count 11.5H 03/29/16 16:12: Glucometer 206H 03/29/16 20:45: Glucometer 239H 03/30/16 05:53: Glucometer 173H 03/30/16 08:35: Anion Gap 12, Anisocytosis SLIGHT, BUN/Creatinine Ratio 15, Band Neutrophils 0, Basophils # (Auto) 0.1, Basophils % (Manual) 1, Basophils (%) (Auto) 1, Blood Urea Nitrogen 23H, Calcium Level 8.9, Carbon Dioxide Level 17L, Chloride Level 107, Creatinine 1.49H, Eosinophils # (Auto) 0.3, Eosinophils % (Manual) 3, Eosinophils (%) (Auto) 3, Estimat Glomerular Filtration Rate 36, Glucose Level 202H, Hematocrit 35, Hemoglobin 11.6, Lymphocytes # (Auto) 2.3, Lymphocytes % ( Manual) 21, Lymphocytes (%) (Auto) 22, Mean Corpuscular Hemoglobin 29, Mean Corpuscular Hemoglobin Concent 33, Mean Corpuscular Volume 88, Mean Platelet Volume 9.0, Monocytes # (Auto) 0.5, Monocytes % (Manual) 6, Monocytes (%) (Auto ) 5, Neutrophils # (Auto) 7.1, Neutrophils % (Manual) 69, Neutrophils (%) (Auto ) 68, Platelet Count 475H, Potassium Level 4.2, Red Blood Count 4.01L, Red Cell Distribution Width 15.3H, Sodium Level 136, White Blood Count 10.4 03/30/16 11:10: Glucometer 186H 03/30/16 16:13: Glucometer 243H 03/30/16 20:39: Glucometer 162H 03/31/16 04:50: Anion Gap 10, BUN/Creatinine Ratio 17, Basophils # (Auto) 0.1, Basophils (%) ( Auto) 2, Blood Urea Nitrogen 19H, Calcium Level 8.6, Carbon Dioxide Level 19L, Chloride Level 109H, Creatinine 1.12, Eosinophils # (Auto) 0.3, Eosinophils (%) (Auto) 4, Estimat Glomerular Filtration Rate 51, Glucose Level 173H, Hematocrit 34L, Hemoglobin 10.9L, Lymphocytes # (Auto) 2.4, Lymphocytes (%) (Auto) 31, Mean Corpuscular Hemoglobin 29, Mean Corpuscular Hemoglobin Concent 32, Mean Corpuscular Volume 88, Mean Platelet Volume 9.2, Monocytes # (Auto) 0.6, Monocytes (%) (Auto) 7, Neutrophils # (Auto) 4.3, Neutrophils (%) (Auto) 56, Platelet Count 429H, Potassium Level 3.8, Red Blood Count 3.81L, Red Cell Distribution Width 15.2H, Sodium Level 138, White Blood Count 7.6 03/31/16 04:51: Glucometer 173H 03/31/16 10:59: Glucometer 141H Microbiology 03/09/16 C. difficile GDH Antigen & Toxins - Final, Complete 03/28/16 Urine Culture - Final, Complete Assessment/Plan Assessment Left BKA 02-01-16 OSH for gangrenous left foot Postop C DIF bowel colitis associated with sepsis treated at OSH-now on Vanco for ongoing treatment-improved Mild Hypokalemia Mild postop Anemia IDDM controlled HTN with hx of afib now sinus with hypotension depression on meds Tobaccoism declines Smoking cessation Trace edema rt ankle Uncertain if patient would tolerate Freddy hose-Lasix prn ordered-one dose ordered with improvement-resolved UTI with fever now afebrile on Vanco Check sensitivity-done Controlled descent to floor 03-24-16 Onychomycosis of toenails Peripheral Vasc d with claudcation complaints RLE-awaiting possible stent Plan Continue PT/OT DR Barrios to see re cardiac meds with echo ordered-done appreciate his consult and f/u-awaiting f/u labsto clear for stent placement RLE recheck labs-done Lasix times one done-edema improved Completed course of Flagyl for Cdif now on course of Vanco with meds adjusted to promote formed st F/U re sensitivity of Gram Negative rods.-done-now repeat pending Apprediate DR sharp notes and orders Podiatry consult for diabetic foot care-done SW contacted me last week re letter to support additional financial assistance from [place] so that she may have a home to go to -signed Recheck with patient re resolution of neck pain-improved F/U with Dr Christina and Sophie re further eval and treatment of Periheral Vasc D. RLE-done to have stent for revasculariuzation RLE later today with DR Barrios TEam Conference held yesterday -See report for full functional update and POC and IRMA MOORE MD Mar 31, 2016 12:57
--- NOTE | 2016-03-31 13:21 | Physical Therapy Daily Note ---
PT Daily Note-Current Subjective Patient sleeping in bed pre tx, agrees to PT after waking. No pain. Appearance Patient back to bed, she is going down for a medical procedure so we had to cut her treatment short. Mental Status Patient Orientation: Normal For Age Attachments: IV Transfers Functional Model Measure 0=Not Assessed/NA 4=Minimal Assistance 1=Total Assistance 5=Supervision or Setup 2=Maximal Assistance 6=Modified Model 3=Moderate Assistance 7=Complete IndependenceIRFPAI Quality Coding Scale 6 Independent with activity with or without an assistive device 5 Patient requires set up or clean up by helper. Patient completes activity by themselves 4 Supervision or touching assist (CGA). [place] provide cues , steadying assist 3 The helper provides less than half the effort to complete the activity 2 The helper provides more than half the effort to complete the activity 1 Dependent. The helper does all the effort to complete an activity 7 Patient refused to complete or attempt activity 9 The patient did not perform the activity before the current illness or injury 88 Not attempted due to Medical conditions or safety concerns Transfers (B, C, W/C) (FIM): 4 Scootin Rollin Supine to/from Sit: 4 Sit to/from Stand: 4 Bed to/from Chair: 4 cues for safety and hand placement Gait Training Gait (FIM): 1 Distance: 20' Gait Level of Assist: 4 Gait Persons Needed: 1 Gait Assistive Device: FWW patient hops on right leg, fatigues quickly Wheelchair Training Wheelchair (FIM): 5 Distance: 150'x2 Wheelchair Level of Assist: 5 Type of Wheelchair: Manual Treatments bed mobility and transfers, ambulation, wheelchair mobility Assessment Current Status: Fair Progress PT Short Term Goals Short Term Goals Time Frame: Mar 17, 2016 Gait (FIM): 1 Gait Distance Comment: 10' Gait Level of Assist: 4 Gait Assistive Device: FWW Wheelchair Distance: 150'x2 PT Snf Goals Finance Admin Goals PT Snf Goals Time Frame: Mar 31, 2016 Transfers (B,C,W/C) (FIM): 5 Sit to Lying (QC): 4 Lying-Sitting on Side/Bed(QC): 4 Sit to Stand (QC): 4 Rollin Roll Left to Right (QC): 4 Chair/Khn-gj-Gybkk Xfer(QC): 4 Car Transfer (QC): 4 Gait (FIM): 1 Distance: 20' Walk 10 feet (QC): 4 Walk 10ft-Uneven Surface(QC): 4 Walk 50ft with 2 Turns (QC): 88 Walk 150 ft (QC): 88 Gait Level of Assist: 5 Gait Assistive Device: FWW Wheelchair (FIM): 6 Distance: 150' Wheelchair Level of Assist: 6 Wheel 50 feet with 2 turns (QC: 6 Stairs (FIM): 2 # of Steps: 4 1 Step (curb) (QC): 4 4 Steps (QC): 4 12 Steps (QC): 88 Stairs Level Of Assist: 4 Picking up an Object (QC): 88 PT Plan Problem List Problem List: Activity Tolerance, Functional Strength, Safety, Balance, Gait, Transfer, Bed Mobility Treatment/Plan Treatment Plan: Continue Plan of Care Treatment Plan: Bed Mobility, Education, Functional Activity Mahad, Functional Strength, Group Therapy, Gait, Safety, Therapeutic Exercise, Transfers Treatment Duration: Mar 31, 2016 Visits Per Week: 10-11 Minutes/Day (M-F): 60-90 Minutes/Day (Sat/[place]): 15-30 Safety Risks/Education Patient Education: Gait Training, Transfer Techniques, Correct Positioning, W/ C Management, Safety Issues Teaching Recipient: Patient Teaching Methods: Demonstration, Discussion Response to Teaching: Reinforcement Needed Time/GCodes Time In: 1300 Time Out: 1315 Total Billed Treatment Time: 15 Total Billed Treatment 1 visit GT 15 min GEM DANIELSON PT Mar 31, 2016 13:21
--- NOTE | 2016-03-31 13:38 | Occupational Ther Daily Note ---
OT Current Status-Daily Note Subjective Pt in bed, agrees to treatment. Pt states she is waiting to have procedure later today. Mental Status/Objective Functional [place] Measure 0=Not Assessed/NA 4=Minimal Assistance 1=Total Assistance 5=Supervision or Setup 2=Maximal Assistance 6=Modified [place] 3=Moderate Assistance 7=Complete [place] ADL-Treatment Functional [place] Measure 0=Not Assessed/NA 4=Minimal Assistance 1=Total Assistance 5=Supervision or Setup 2=Maximal Assistance 6=Modified [place] 3=Moderate Assistance 7=Complete IndependenceIRFPAI Quality Coding Scale 6 Independent with activity with or without an assistive device 5 Patient requires set up or clean up by helper. Patient completes activity by themselves 4 Supervision or touching assist (CGA). [place] provide cues , steadying assist 3 The helper provides less than half the effort to complete the activity 2 The helper provides more than half the effort to complete the activity 1 Dependent. The helper does all the effort to complete an activity 7 Patient refused to complete or attempt activity 9 The patient did not perform the activity before the current illness or injury 88 Not attempted due to Medical conditions or safety concerns Other Treatment Pt completed UE activity while in bed. 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 Putty activity with bilateral hands to increase strength. Pt then removed small beads from putty with increased time. Pt in bed with needs met and spouse present after session. OT Short Term Goals Short Term Goals Time Frame: Mar 17, 2016 Bathing(FIM): 4 Lower Body Dressing(FIM): 3 Toileting(FIM): 3 Toilet/Commode Transfer(FIM): 4 Shower Transfer(FIM): 3 Additional Short Term Goals: 1-Demonstrate ADL Tasks, 2-Verbalize Understanding , 3-ImproveStrength/Mahad 1=Demonstrate adherence to instructed precautions during ADL tasks. 2=Patient will verbalize/demonstrate understanding of assistive devices/ modifications for ADL. 3=Patient will improve strength/tolerance for activity to enable patient to perform ADL's. OT Longterm Goals Longterm Goals Time Frame: Mar 31, 2016 Eating (FIM): 6 Eating (QC): 6 Groomin Oral Hygiene (QC): 6 Bathing(FIM): 5 Shower/Bathe Self (QC): 4 Upper Body Dressing(FIM): 6 Upper Body Dressing (QC): 6 Lower Body Dressing(FIM): 5 Lower Body Dressing (QC): 4 On/Off Footwear (QC): 5 Toileting(FIM): 5 Toileting Hygiene (QC): 4 Toilet/Commode Transfer(FIM): 5 Toilet/Commode Transfer (QC): 4 Shower Transfer(FIM): 4 Additional Goals: 1-Demonstrate ADL Tasks, 2-Verbalize Understanding, 3- ImproveStrength/Mahad 1=Demonstrate adherence to instructed precautions during ADL tasks. 2=Patient will verbalize/demonstrate understanding of assistive devices/ modifications for ADL. 3=Patient will improve strength/tolerance for activity to enable patient to perform ADL's. OT Education/Plan Problem List/Assessment Pt demonstrates decreased mobility, strength, activity tolerance, and ADL performance. Pt to benefit from skilled OT intervention for ADL training, transfers, strengthening, adaptive equipment training as needed, and home safety education to maximize level of function and allow safe discharge. Discharge Recommendations Plan/Recommendations: Continue POC Treatment Plan/Plan of Care Patient would benefit from OT for education, treatment and training to promote independence in ADL's, mobility, safety and/or upper extremity function for ADL' s. Plan of Care: ADL Retraining, Functional Mobility, Group Exercise/Act as Ind, UE Funct Exercise/Act Treatment Duration: Mar 31, 2016 Visits Per Week: 10-11 Minutes/Day (M-F): 60-90 Minutes/Day (Sat/[place]): PRN Agreement: Yes Rehab Potential: Fair Time/GCodes Start Time: 11:30 Stop Time: 11:45 Total Time Billed (hr/min): 15 Billed Treatment Time 1 visit, EX(15minutes) OLIVIA NELSON OT Mar 31, 2016 13:38
--- NOTE | 2016-03-31 14:01 | Occ Therapy Rehab Re-Cert ---
OT Re-Certification Form Plan of Care: ADL Retraining, Functional Mobility, Group Exercise/Act as Ind, UE Funct Exercise/Act Pt is making progress toward goals. Pt able to complete UE ADLs with modified independence at w/c level. Pt is now able to complete transfers and LE dressing with minimal assistance. Continue skilled therapy and current goals to improve level of functional independence to allow safe return home. Treatment Duration: 3 weeks # of days/week 5-6 Visits Per Week: 10-11 Minutes/Day (M-F): 60-90 Minutes/Day (Sat/[place]): PRN Agreement: Yes Rehab Potential: Fair OT Short Term Goals Short Term Goals Time Frame: Mar 17, 2016 Bathing(FIM): 4 Lower Body Dressing(FIM): 3 Toileting(FIM): 3 Toilet/Commode Transfer(FIM): 4 Shower Transfer(FIM): 3 Additional Short Term Goals: 1-Demonstrate ADL Tasks, 2-Verbalize Understanding , 3-ImproveStrength/Mahad 1=Demonstrate adherence to instructed precautions during ADL tasks. 2=Patient will verbalize/demonstrate understanding of assistive devices/ modifications for ADL. 3=Patient will improve strength/tolerance for activity to enable patient to perform ADL's. OT Event Marketing Specialist Goals Event Marketing Specialist Goals Time Frame: Mar 31, 2016 Eating (FIM): 6 Grooming(FIM): 6 Bathing(FIM): 5 Upper Body Dressing(FIM): 6 Lower Body Dressing(FIM): 5 Toileting(FIM): 5 Toilet/Commode Transfer(FIM): 5 Shower Transfer(FIM): 4 Additional Goals: 1-Demonstrate ADL Tasks, 2-Verbalize Understanding, 3- ImproveStrength/Mahad 1=Demonstrate adherence to instructed precautions during ADL tasks. 2=Patient will verbalize/demonstrate understanding of assistive devices/ modifications for ADL. 3=Patient will improve strength/tolerance for activity to enable patient to perform ADL's. OLIVIA NELSON OT Mar 31, 2016 14:01
--- NOTE | 2016-03-31 14:03 | Cardiology Progress Note ---
Subjective Subjective/Events-last exam patient is laying down in bed, recovering. Denied any pain. Review of Systems General: No Chills, No Night Sweats, No Fatigue, No Malaise, No Appetite, No Other HEENT: No Head Aches, No Visual Changes, No Eye Pain, No Ear Pain, No Dysphasia , No Sinus Congestion, No Post Nasal Drip, No Sore Throat, No Other Pulmonary: No Dyspnea, No Cough, No Pleuritic Chest Pain, No Other Cardiovascular: No: Chest Pain, Edema, Lt Headedness, Orthopnea, Other, Palpitations, Paroxysmal Noc. Dyspnea Objective-Cardiology Exam Last Set of Vital Signs Vital Signs 03/31/16 04:40 Temp 97.7 Pulse 87 Resp 20 B/P 118/78 Pulse Ox 97 O2 Delivery Room Air Capillary Refill : Less Than 3 Seconds I&O Intake and Output 03/30/16 23:59 Intake Total 3140 ml Output Total 1100 ml Balance 2040 ml Intake Oral 2140 ml IV Total 1000 ml Output Urine Total 1100 ml # Voids 5 # Bowel Movements 6 General: Alert, No Acute Distress HEENT: Atraumatic Neck: Supple, No JVD, No Thyromegaly Lungs: Normal Air Movement Heart: Regular Rate, Normal S1, Normal S2, No Murmurs Abdomen: Normal Bowel Sounds, Soft, No Tenderness Extremities: No Clubbing, No Cyanosis Skin: Other (Sacral wounds resolved; L knee, stable eschar, 1.0 x 1.4 x 0.1 cm , min. drainage.) Neuro: Normal Speech, Strength at 5/5 X4 Ext, Other (mild weakness RLE) Psych/Mental Status: Mental Status NL Results Lab Laboratory Tests 03/31/16 04:50 A/P-Cardiology Admission Diagnosis Hypotension Paroxysmal atrial fibrillation Hyperlipidemia Peripheral arterial disease Diabetes mellitus Assessment/Plan Hypotension, multifactorial, better, continue on monitoring. Right leg swelling, extensive peripheral arterial disease, angiogram showed severe disease at multiple segment at the left SFA which will cause slow healing of her stump, right lower extremity has severe popliteal artery stenosis , anterior tibial artery has severe stenosis, tibial peroneal trunk has severe stenosis which will require balloon angioplasty and possibly drug-coated balloon which will be staged at a later point. Continue with medical therapy for now Chronic renal insufficiency, continue to monitor renal function, hydrate, total contrast used is 38 milliliters of contrast Paroxysmal atrial fibrillation, reporting episode of atrial fibrillation during her hospital stay in January at [facility]. She is not on oral anticoagulation, no signs of bleeding. Probably transient episode of atrial fibrillation. She denied any previous history prior to her surgery. No syncope was reported. Currently in sinus rhythm. Continue to monitor C. difficile colitis, improved, off isolation at this time. 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 Anemia, monitor H&H Hyperlipidemia, maintained on Lipitor. Monitor lipids Diabetes mellitus, followed and managed by primary care physician Tobaccoism, educated in length on smoking cessation Depression, anxiety. Managed by primary care physician Debility, receiving physical therapy Clinical Quality Measures DVT/VTE Risk/Contraindication: Risk Factor Score Per Nursin RFS Level Per Nursing on Admit: 4+=Very High MILADY SHANNON MD Mar 31, 2016 14:03
--- NOTE | 2016-03-31 14:10 | Cardiac Procedure Note-CS/ASA ---
Pre-Procedure Note Pre-Op Procedure Note H&P Reviewed The H&P was reviewed, patient examined and no changes noted. Date H&P Reviewed: Mar 31, 2016 Time H&P Reviewed: 13:00 Conscious Sedation Pre-Proced Time Reviewed: 13:00 ASA Class: 3 Airway Mallampati Classification: ([place] appropriate class) I. II. III, IV Lungs Heart ASA score ASA 1: a normal healthy patient ASA 2: a patient with a mild systemic disease (mid diabetes, controlled hypertension, obesity x ASA 3: a patient with a severe systemic disease that limits activity (angina , COPD, prior Myocardial infarction) ASA 4: a patient with an incapacitating disease that is a constant threat to life (CHF, renal failure) ASA 5: a moribund patient not expected to survive 24 hrs. (ruptured aneurysm) ASA 6: a declared brain patient whose organs are being harvested. For emergent operations, add the letter E after the classification Grade 3 Sedation Plan: Analgesia, Amnesia, Plan communicated to team members, Discussed options with patient/fam, Discussed risks with patient/fam Note The patient is an appropriate candidate to undergo the planned procedure, sedation, and anesthesia. The patient immediately re-assessed prior to indication. MILADY SHANNON MD Mar 31, 2016 2:10 pm
[2016-03-31] MEDS ORDERED: PATIENT MAY USE OWN MEDS, ALL PO SCH (14:15)
[2016-03-31 18:21] VITALS: BP_SYST 136; BP_SYST 151; BP_DIAS 68; BP_DIAS 87
[2016-03-31 18:40] VITALS: BP 151/87
[2016-03-31] MEDS: inSUlin DETERMIR 1 UNIT/0.01 ML (LEVEMIR) CHARGE PER UNIT SQ SCH (20:44)
[2016-03-31] MEDS: ATORVASTATIN 40 MG (LIPITOR) TABLET PO SCH (20:44)
[2016-03-31] MEDS: ENOXAPARIN 40 MG/0.4 ML (LOVENOX) SYR SC SCH (20:44)
[2016-04-01] MEDS: NS IV 1000 ML 1,000 ML IV SCH ×2 (00:03→00:45)
[2016-04-01 05:55] VITALS: BP 137/83
[2016-04-01] MEDS: inSUlin (REGULAR) HUMAN 1 UNIT/0.01 ML (CHARGE PER UNIT) SC SCH ×4 (05:58→21:00)
[2016-04-01] MEDS: DOXYCYCLINE 100 MG (VIBRAMYCIN) TABLET PO SCH ×2 (05:58→16:56)
[2016-04-01 07:02] LABS: MEAN PLATELET VOLUME 9.2 FL (7.4-10.4); RED BLOOD COUNT 3.79 10^6/uL (4.35-5.85); RED CELL DISTRIBUTION WIDTH 15.2 % (10.0-14.5); WHITE BLOOD COUNT 8.5 10^3/uL (4.3-11.0)
[2016-04-01 07:37] LABS: CALCIUM 8.5 MG/DL (8.5-10.1); CREATININE SERUM 1.13 MG/DL (0.60-1.30); POTASSIUM 3.9 MMOL/L (3.6-5.0)
--- NOTE | 2016-04-01 08:20 | Progress Note (SOAP) ---
Subjective Subjective/Events-last exam patient has peripheral vascular disease. Patient had procedure done yesterday. Patient feeling okay today. Kidney function is 50 today. Diabetes doing good Objective Exam Vital Signs Date Time Temp Pulse Resp B/P Pulse Ox O2 Delivery O2 Flow Rate FiO2 04/01/16 05:55 98.0 85 16 137/83 99 Room Air 03/31/16 21:00 Room Air 03/31/16 18:40 97.8 84 18 151/87 97 Room Air 03/31/16 18:21 97.8 84 14 151/87 97 I & O 04/01/16 07:00 Intake Total 2100 ml Balance 2100 ml Capillary Refill : Less Than 3 Seconds General Appearance: No Apparent Distress WD/WN HEENT: Normal ENT Inspection Neck: Full Range of Motion Non Tender Respiratory: Chest Non Tender Lungs Clear Normal Breath Sounds No Accessory Muscle Use No Respiratory Distress Cardiovascular: Regular Rate, Rhythm Gastrointestinal: non tender soft Results Lab Laboratory Tests 04/01/16 05:28 Laboratory Tests 03/31/16 10:59: Glucometer 141H 03/31/16 17:02: Glucometer 103 03/31/16 20:46: Glucometer 141H 04/01/16 05:28: Anion Gap 9, BUN/Creatinine Ratio 15, Blood Urea Nitrogen 17, Calcium Level 8.5 , Carbon Dioxide Level 19L, Chloride Level 109H, Creatinine 1.13, Estimat Glomerular Filtration Rate 50, Glucose Level 149H, Hematocrit 34L, Hemoglobin 10.9L, Mean Corpuscular Hemoglobin 29, Mean Corpuscular Hemoglobin Concent 32, Mean Corpuscular Volume 89, Mean Platelet Volume 9.2, Platelet Count 393, Potassium Level 3.9, Red Blood Count 3.79L, Red Cell Distribution Width 15.2H, Sodium Level 137, White Blood Count 8.5 04/01/16 05:54: Glucometer 171H Microbiology 03/09/16 C. difficile GDH Antigen & Toxins - Final, Complete 03/28/16 Urine Culture - Final, Complete Assessment/Plan Assessment/Plan Assess & Plan/Chief Complaint left below the knee amputation. Diabetes. Peripheral vascular disease. Depression history. Hypertension history. . 03/11/16 left below knee amputation. Diabetes. Peripheral vascular disease. History of hypertension. C. difficile. Hypotensive. Health lisinopril. . Left knee below amputation. Diabetes. Peripheral vascular disease. History of atrial fibrillation. Patient in sinus rhythm. Hypotension. C. difficile. Diarrhea improving. . 03/15/16. Left below the knee amputation. Diabetes. Peripheral vascular disease. Depression history. Atrial fib. Blood pressure goodt and heart rate within normal limits. . 03/16/16. Left below the knee amputation. Peripheral vascular disease. Diabetes. C. difficile. History of atrial fibrillation. Diarrhea better. Potassium 3.3 Will replace. Patient has renal insufficiency. . 03/17/16. Left below the knee amputation. Diabetes. Peripheral vascular disease. Depression history. Patient doing better. Patient happy. Patient improving. . 03/18/16. Left below the knee amputation. Diabetes. 4 vascular disease. Depression history. UA shows infection. C. difficile. To put on antibiotics only for 2 days when get sensitivity. . 03/21/16. Left below the knee amputation. C. difficile. Stools are better. Diabetes. Peripheral vascular disease. To check UA tomorrow. . 02/3116. Left below the knee amputation. Diabetes. Peripheral vascular disease. Hypertension history. Patient doing better and happy. infection nitrate negative now done today. . 03/23/16. infection with different organism now. Waiting for sensitivity. Patient doing much better. Patient positive. Patient hopping 6 steps. Wound is healing. Patient in the right direction . 03/24/16. Left below the knee amputation. Diabetes. Peripheral vascular disease. Depression. Patient doing better. Patient improving. . 03/25/16 area Left below the knee amputation. Diabetes. Peripheral vascular disease. Depression. Patient is improving and feeling better about herself. . 03/28/16. Left below the knee amputation. Diabetes under better control. Peripheral vascular disease. infection to check urine today. Depression history. Hypertension. . 03/29/16. Patient worried about toe. Toe has some redness to it. To do arterial Doppler . Director Of Nurses Registry to get involved again. To start on antibiotics. Patient not to smoke. Left below the knee amputation. Diabetes. Peripheral vascular disease. Depression. . . Left knee below amputation. Diabetes. Peripheral vascular disease. Depression. Hypertension. . 03/31/16. Kidney function better. Patient have procedure done today. Left below the knee amputation. Diabetes okay. Peripheral vascular disease. Hypertension history. . 04/01/16. Kidney function good. Patient has peripheral vascular disease. Left knee amputation. Peripheral vascular disease. Diabetes under control. Hypertension history Diagnosis/Problems: Clinical Quality Measures DVT/VTE Risk/Contraindication: Risk Factor Score Per Nursin RFS Level Per Nursing on Admit: 4+=Very High URSULA RENEE DO Apr 01, 2016 08:20
[2016-04-01] MEDS: DILTIAZEM 30 MG (CARDIZEM) TAB PO SCH (08:31)
[2016-04-01] MEDS: ASPIRIN E.C. 81 MG (ECOTRIN) TAB PO SCH (08:31)
[2016-04-01] MEDS: CEPHALEXIN 250 MG (KEFLEX) CAP PO SCH ×3 (08:31→20:01)
[2016-04-01] MEDS: DULoxetine 30 MG (CYMBALTA) CAP PO SCH (08:31)
[2016-04-01] MEDS: CLOPIDOGREL 75 MG (PLAVIX) TABLET PO SCH (08:31)
[2016-04-01] MEDS: GABAPENTIN 600 MG (NEURONTIN) TAB PO SCH ×3 (08:31→20:01)
[2016-04-01] MEDS: MUPIROCIN 2% OINT 22 GM (BACTROBAN) TUBE TOP SCH ×2 (09:00→20:02)
--- NOTE | 2016-04-01 09:33 | PM & R (SOAP) Progress Note ---
Subjective Subjective/Events-last exam Patient was seen in her room this AM Had Cath yesterday revealing blockage at rt popliteal artery but stent that was needed(drug Eluting) was not available so that revascularization was not able to be done-Will f/u with Cardiology re timeline for obtaining stent-otherwise may need to go to OSH for procedure.Patient Min assit for transfers but PT on hold today due to cath procedure yesterday,OT may continue with Upper body ADLS-See orders Objective Exam Last Set of Vital Signs Vital Signs Date Time Temp Pulse Resp B/P Pulse Ox O2 Delivery O2 Flow Rate FiO2 04/01/16 05:55 98.0 85 16 137/83 99 Room Air Capillary Refill : Less Than 3 Seconds I&O Intake and Output 04/01/16 00:00 Intake Total 1320 ml Balance 1320 ml Intake Oral 320 ml IV Total 1000 ml # Voids 2 # Bowel Movements 1 General: Alert, No Acute Distress HEENT: Atraumatic Neck: Supple, No JVD, No Thyromegaly Lungs: Normal Air Movement Heart: Regular Rate, Normal S1, Normal S2, No Murmurs Abdomen: Normal Bowel Sounds, Soft, No Tenderness Extremities: No Clubbing, No Cyanosis Skin: Other (Sacral wounds resolved; L knee, stable eschar, 1.0 x 1.4 x 0.1 cm , min. drainage.) Neuro: Normal Speech, Strength at 5/5 X4 Ext, Other (mild weakness RLE) Psych/Mental Status: Mental Status NL Results Lab Laboratory Tests 03/29/16 10:59: Glucometer 176H 03/29/16 14:41: Activated Partial Thromboplast Time 31, Anion Gap 10, BUN/Creatinine Ratio 15, Blood Urea Nitrogen 25H, Calcium Level 9.0, Carbon Dioxide Level 21, Chloride Level 104, Creatinine 1.66H, Estimat Glomerular Filtration Rate 32, Glucose Level 180H, Hematocrit 35, Hemoglobin 11.6, INR Comment 1.1, Mean Corpuscular Hemoglobin 29, Mean Corpuscular Hemoglobin Concent 33, Mean Corpuscular Volume 87, Mean Platelet Volume 9.0, Platelet Count 489H, Potassium Level 4.1, Prothrombin Time 14.0, Red Blood Count 4.00L, Red Cell Distribution Width 15.3H , Sodium Level 135, White Blood Count 11.5H 03/29/16 16:12: Glucometer 206H 03/29/16 20:45: Glucometer 239H 03/30/16 05:53: Glucometer 173H 03/30/16 08:35: Anion Gap 12, Anisocytosis SLIGHT, BUN/Creatinine Ratio 15, Band Neutrophils 0, Basophils # (Auto) 0.1, Basophils % (Manual) 1, Basophils (%) (Auto) 1, Blood Urea Nitrogen 23H, Calcium Level 8.9, Carbon Dioxide Level 17L, Chloride Level 107, Creatinine 1.49H, Eosinophils # (Auto) 0.3, Eosinophils % (Manual) 3, Eosinophils (%) (Auto) 3, Estimat Glomerular Filtration Rate 36, Glucose Level 202H, Hematocrit 35, Hemoglobin 11.6, Lymphocytes # (Auto) 2.3, Lymphocytes % ( Manual) 21, Lymphocytes (%) (Auto) 22, Mean Corpuscular Hemoglobin 29, Mean Corpuscular Hemoglobin Concent 33, Mean Corpuscular Volume 88, Mean Platelet Volume 9.0, Monocytes # (Auto) 0.5, Monocytes % (Manual) 6, Monocytes (%) (Auto ) 5, Neutrophils # (Auto) 7.1, Neutrophils % (Manual) 69, Neutrophils (%) (Auto ) 68, Platelet Count 475H, Potassium Level 4.2, Red Blood Count 4.01L, Red Cell Distribution Width 15.3H, Sodium Level 136, White Blood Count 10.4 03/30/16 11:10: Glucometer 186H 03/30/16 16:13: Glucometer 243H 03/30/16 20:39: Glucometer 162H 03/31/16 04:50: Anion Gap 10, BUN/Creatinine Ratio 17, Basophils # (Auto) 0.1, Basophils (%) ( Auto) 2, Blood Urea Nitrogen 19H, Calcium Level 8.6, Carbon Dioxide Level 19L, Chloride Level 109H, Creatinine 1.12, Eosinophils # (Auto) 0.3, Eosinophils (%) (Auto) 4, Estimat Glomerular Filtration Rate 51, Glucose Level 173H, Hematocrit 34L, Hemoglobin 10.9L, Lymphocytes # (Auto) 2.4, Lymphocytes (%) (Auto) 31, Mean Corpuscular Hemoglobin 29, Mean Corpuscular Hemoglobin Concent 32, Mean Corpuscular Volume 88, Mean Platelet Volume 9.2, Monocytes # (Auto) 0.6, Monocytes (%) (Auto) 7, Neutrophils # (Auto) 4.3, Neutrophils (%) (Auto) 56, Platelet Count 429H, Potassium Level 3.8, Red Blood Count 3.81L, Red Cell Distribution Width 15.2H, Sodium Level 138, White Blood Count 7.6 03/31/16 04:51: Glucometer 173H 03/31/16 10:59: Glucometer 141H 03/31/16 17:02: Glucometer 103 03/31/16 20:46: Glucometer 141H 04/01/16 05:28: Anion Gap 9, BUN/Creatinine Ratio 15, Blood Urea Nitrogen 17, Calcium Level 8.5 , Carbon Dioxide Level 19L, Chloride Level 109H, Creatinine 1.13, Estimat Glomerular Filtration Rate 50, Glucose Level 149H, Hematocrit 34L, Hemoglobin 10.9L, Mean Corpuscular Hemoglobin 29, Mean Corpuscular Hemoglobin Concent 32, Mean Corpuscular Volume 89, Mean Platelet Volume 9.2, Platelet Count 393, Potassium Level 3.9, Red Blood Count 3.79L, Red Cell Distribution Width 15.2H, Sodium Level 137, White Blood Count 8.5 04/01/16 05:54: Glucometer 171H Microbiology 03/09/16 C. difficile GDH Antigen & Toxins - Final, Complete 03/28/16 Urine Culture - Final, Complete Assessment/Plan Assessment Left A 02-01-16 OSH for gangrenous left foot Postop C DIF bowel colitis associated with sepsis treated at OSH-now on Vanco for ongoing treatment-improved Mild Hypokalemia Mild postop Anemia IDDM controlled HTN with hx of afib now sinus with hypotension depression on meds Tobaccoism declines Smoking cessation Trace edema rt ankle Uncertain if patient would tolerate Freddy hose-Lasix prn ordered-one dose ordered with improvement-resolved UTI with fever now afebrile on Vanco Check sensitivity-done Controlled descent to floor 03-24-16 Onychomycosis of toenails Peripheral Vasc d with claudcation complaints RLE- s/pcath revealing stenosis rt Popliteal artery awaiting possible stent Plan Continue PT/OT DR Barrios to see re cardiac meds with echo ordered-done appreciate his consult and f/u-awaiting f/u labs to clear for stent placement [id number] awaiting stent availability recheck labs-done Lasix times one done-edema improved Completed course of Flagyl for Cdif now on course of Vanco with meds adjusted to promote formed st F/U re sensitivity of Gram Negative rods.-done-now repeat pending Apprediate DR sharp notes and orders Podiatry consult for diabetic foot care-done SW contacted me last week re letter to support additional financial assistance from [place] so that she may have a home to go to -signed Recheck with patient re resolution of neck pain-improved F/U with Dr Christina and Sophie re further eval and treatment of Periheral Vasc D. RLE-done to have stent for revasculariuzation RLE later today with DR Barrios TEam Conference held 03/30/16 -See report for full functional update and POC and ELOS Discharge plans on hold for now until resolution of stent issue IRMA ESPINOZA MD Apr 01, 2016 09:33
--- NOTE | 2016-04-01 09:52 | Occupational Ther Daily Note ---
OT Current Status-Daily Note Subjective Pt sitting EOB this am, agrees to treatment. Pt had procedure yesterday and has some activity restrictions. Pt okay for UE activity, but no lifting greater than 10 pounds. Pt states she has some "soreness" in groin, but does not rate Mental Status/Objective Functional [place] Measure 0=Not Assessed/NA 4=Minimal Assistance 1=Total Assistance 5=Supervision or Setup 2=Maximal Assistance 6=Modified [place] 3=Moderate Assistance 7=Complete [place] ADL-Treatment Pt requests to use BSC. RN reports pt is okay for transfers to commode. Pt transferred EOB<->BSC with minimal assistance using FWW. Pt able to complete toileting hygiene. Pt donned sweatpants while on commode, required assist to pull up when standing. Functional [place] Measure 0=Not Assessed/NA 4=Minimal Assistance 1=Total Assistance 5=Supervision or Setup 2=Maximal Assistance 6=Modified [place] 3=Moderate Assistance 7=Complete IndependenceIRFPAI Quality Coding Scale 6 Independent with activity with or without an assistive device 5 Patient requires set up or clean up by helper. Patient completes activity by themselves 4 Supervision or touching assist (CGA). [place] provide cues , steadying assist 3 The helper provides less than half the effort to complete the activity 2 The helper provides more than half the effort to complete the activity 1 Dependent. The helper does all the effort to complete an activity 7 Patient refused to complete or attempt activity 9 The patient did not perform the activity before the current illness or injury 88 Not attempted due to Medical conditions or safety concerns Toilet/Commode Transfer (FIM): 4 Other Treatment Pt performed bilateral UE activity while seated EOB. Pt completed dowel exercises x20 reps for shoulder flexion, forward press, biceps curls, and wrist flex/ext. Putty activity with bilateral hands to increase strength. Pt able to remove small beads from putty without assistance. Graded clothespin activity with bilateral hands to increase inspector machined parts/pinch strength. Pt able to complete task within normal amount of time. Pt sitting EOB with needs met after session, spouse present. OT Short Term Goals Short Term Goals Time Frame: Mar 17, 2016 Bathing(FIM): 4 Lower Body Dressing(FIM): 3 Toileting(FIM): 3 Toilet/Commode Transfer(FIM): 4 Shower Transfer(FIM): 3 Additional Short Term Goals: 1-Demonstrate ADL Tasks, 2-Verbalize Understanding , 3-ImproveStrength/Mahad 1=Demonstrate adherence to instructed precautions during ADL tasks. 2=Patient will verbalize/demonstrate understanding of assistive devices/ modifications for ADL. 3=Patient will improve strength/tolerance for activity to enable patient to perform ADL's. OT Crusher Wet [place] Mica Goals Long-Term Goals Time Frame: Mar 31, 2016 Eating (FIM): 6 Eating (QC): 6 Groomin Oral Hygiene (QC): 6 Bathing(FIM): 5 Shower/Bathe Self (QC): 4 Upper Body Dressing(FIM): 6 Upper Body Dressing (QC): 6 Lower Body Dressing(FIM): 5 Lower Body Dressing (QC): 4 On/Off Footwear (QC): 5 Toileting(FIM): 5 Toileting Hygiene (QC): 4 Toilet/Commode Transfer(FIM): 5 Toilet/Commode Transfer (QC): 4 Shower Transfer(FIM): 4 Additional Goals: 1-Demonstrate ADL Tasks, 2-Verbalize Understanding, 3- ImproveStrength/Mahad 1=Demonstrate adherence to instructed precautions during ADL tasks. 2=Patient will verbalize/demonstrate understanding of assistive devices/ modifications for ADL. 3=Patient will improve strength/tolerance for activity to enable patient to perform ADL's. OT Education/Plan Problem List/Assessment Pt demonstrates decreased mobility, strength, activity tolerance, and ADL performance. Pt to benefit from skilled OT intervention for ADL training, transfers, strengthening, adaptive equipment training as needed, and home safety education to maximize level of function and allow safe discharge. Discharge Recommendations Plan/Recommendations: Continue POC Treatment Plan/Plan of Care Patient would benefit from OT for education, treatment and training to promote independence in ADL's, mobility, safety and/or upper extremity function for ADL' s. Plan of Care: ADL Retraining, Functional Mobility, Group Exercise/Act as Ind, UE Funct Exercise/Act Treatment Duration: Mar 31, 2016 Visits Per Week: 10-11 Minutes/Day (M-F): 60-90 Minutes/Day (Sat/[place]): PRN Agreement: Yes Rehab Potential: Fair Time/GCodes Start Time: 09:00 Stop Time: 09:25 Total Time Billed (hr/min): 25 Billed Treatment Time 1 visit, EXx2(25minutes) OLIVIA NELSON OT Apr 01, 2016 09:52
[2016-04-01] MEDS: SILVER SULFADIAZINE 50 GM CREAM TOP SCH (09:54)
--- NOTE | 2016-04-01 10:24 | Physical Therapy Progress Note ---
Therapy Progress Note Patient on hold for physical therapy today due to medical reasons. GEM DANIELSON PT Apr 01, 2016 10:24
[2016-04-01] MEDS: ALPRAZolam 0.5 MG (XANAX) TAB PO PRN ×2 (10:25→19:51)
--- NOTE | 2016-04-01 12:10 | Cardiology Progress Note ---
Subjective Subjective/Events-last exam patient is laying down in bed, feeling better, no new complaint. Review of Systems General: No Chills, No Night Sweats, No Fatigue, No Malaise, No Appetite, No Other HEENT: No Head Aches, No Visual Changes, No Eye Pain, No Ear Pain, No Dysphasia , No Sinus Congestion, No Post Nasal Drip, No Sore Throat, No Other Pulmonary: No Dyspnea, No Cough, No Pleuritic Chest Pain, No Other Cardiovascular: No: Chest Pain, Edema, Lt Headedness, Orthopnea, Other, Palpitations, Paroxysmal Noc. Dyspnea Objective-Cardiology Exam Last Set of Vital Signs Vital Signs 04/01/16 04/01/16 05:55 09:00 Temp 98.0 Pulse 85 Resp 16 B/P 137/83 Pulse Ox 99 O2 Delivery Room Air Capillary Refill : Less Than 3 Seconds I&O Intake and Output 04/01/16 00:00 Intake Total 1320 ml Balance 1320 ml Intake Oral 320 ml IV Total 1000 ml # Voids 2 # Bowel Movements 1 General: Alert, No Acute Distress HEENT: Atraumatic Neck: Supple, No JVD, No Thyromegaly Lungs: Normal Air Movement Heart: Regular Rate, Normal S1, Normal S2, No Murmurs Abdomen: Normal Bowel Sounds, Soft, No Tenderness Extremities: No Clubbing, No Cyanosis Skin: Other (Sacral wounds resolved; L knee, stable eschar, 1.0 x 1.4 x 0.1 cm , min. drainage.) Neuro: Normal Speech, Strength at 5/5 X4 Ext, Other (mild weakness RLE) Psych/Mental Status: Mental Status NL Results Lab Laboratory Tests 04/01/16 05:28 A/P-Cardiology Admission Diagnosis Hypotension Paroxysmal atrial fibrillation Hyperlipidemia Peripheral arterial disease Diabetes mellitus Assessment/Plan Right leg swelling, extensive peripheral arterial disease, angiogram showed severe disease at multiple segment at the left SFA which will cause slow healing of her stump, right lower extremity has severe popliteal artery stenosis , anterior tibial artery has severe stenosis, tibial peroneal trunk has severe stenosis which will require balloon angioplasty and possibly drug-coated balloon which will be staged at a later point. Continue with medical therapy for now Chronic renal insufficiency, continue to monitor renal function, hydrate, total contrast used is 38 milliliters of contrast Paroxysmal atrial fibrillation, reporting episode of atrial fibrillation during her hospital stay in January at [facility]. She is not on oral anticoagulation, no signs of bleeding. Probably transient episode of atrial fibrillation. She denied any previous history prior to her surgery. No syncope was reported. Currently in sinus rhythm. Continue to monitor C. difficile colitis, improved, off isolation at this time. 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 Anemia, monitor H&H Hyperlipidemia, maintained on Lipitor. Monitor lipids Diabetes mellitus, followed and managed by primary care physician Tobaccoism, educated in length on smoking cessation Depression, anxiety. Managed by primary care physician Debility, receiving physical therapy Clinical Quality Measures DVT/VTE Risk/Contraindication: Risk Factor Score Per Nursin RFS Level Per Nursing on Admit: 4+=Very High MILADY SHANNON MD Apr 01, 2016 12:10
[2016-04-01] MEDS: DILTIAZEM 120 MG (CARDIZEM CD) CAP PO SCH (13:05)
--- NOTE | 2016-04-01 14:10 | Therapy Group Daily Note ---
Therapy Daily Group Note Patient Education Topic Home Safety, Fall Prevention Exercises Fine Motor, UE Exercise Other/Notes Pt maneuvered w/c to OT/PT lunch group in [facility]. Group therapy consisted of introductions, socialization, fine motor skills, UE gross motor skills, memory recall of different restaurants were favorites and kitchen/home safety and AE in kitchen. Pt actively participated in group and contributed to discussions around the table appropriately. Pt was able to open/close container and packages with assist for one bottle. Pt transported back to room via w/c then transferred with CGA to [facility] completed own toileting and transferred to bed with CGA using FWW. After therapy, pt sitting EOB with nrsg present in room. Call light/phone in reach. All needs met in room. Start Time: 12:00 Stop Time: 13:10 Total Billed Treatment Time: 70 Total Billed Treatment 1-GRP ANA HWANG Apr 01, 2016 14:10
--- NOTE | 2016-04-01 14:24 | Podiatry Progress Note ---
Standard Progress Note Progress Notes/Assess & Plan Progress/Assessment & Plan The patient states that there is decreased pain to the right foot. She states that the right 3rd toe looks better. No reported F/C/N/V There is a dressing to the right 3rd digit. There is decreased erythema to the dorsum of the right 3rd digit at the distal phalanx and there is no proximal streaking. There is a dry eschar and minimal granular tissue to the right 3rd digit nail bed. Non-palpable pedal pulses right. A/P: Onycholysis right 3rd digit, Neuropathy, Benjamin Grade one ulcer R3 Toe ( healing well) Cleaned wound, Continue with Silvadene cream and gauze dressing. Continue oral antibiotics. Will follow up as needed Final Diagnosis Onycholysis right 3rd digit TITO CALVERT DPM Apr 01, 2016 14:24
[2016-04-01] MEDS: oxyCODONE/APAP 5/325MG (PERCOCET 5) TABLET PO PRN ×2 (16:56→22:52)
[2016-04-01 18:09] VITALS: BP 128/78
--- NOTE | 2016-04-01 19:37 | Wound Care Progress Note ---
Subjective Subjective Subjective/Events-last exam 55 year old female with pressure ulcers of sacrum and L knee. The wounds are not making any progress. The patient underwent arteriogram and is to have re- evaluation/intervention in R leg in the future. PMFSH: No interval change. Review of Systems General: No Chills Pulmonary: No Dyspnea Cardiovascular: No: Chest Pain Integumentary -- Wounds of sacrum, L knee. Healing L BKA incision. Psych -- Some depression, anxious. Objective Exam Last Set of Vital Signs Vital Signs Date Time Temp Pulse Resp B/P Pulse Ox O2 Delivery O2 Flow Rate FiO2 04/01/16 18:09 98.7 94 14 128/78 97 04/01/16 09:00 Room Air Capillary Refill : Less Than 3 Seconds I&O Intake and Output 04/01/16 00:00 Intake Total 1320 ml Balance 1320 ml Intake Oral 320 ml IV Total 1000 ml # Voids 2 # Bowel Movements 1 General: Alert, No Acute Distress Lungs: Normal Air Movement Extremities: Other (The patient has been noted to have an ulcer of the R foot which is under the care of Dr. Mas.) Skin: Other (sacral(cluster of two) 0.3 x 0.4 x 0.3 cm, base 100% slough, L knee -- 1.2 x 1.7 x 0.2 cm, base 100% slough.) Results Lab Laboratory Tests 03/31/16 20:46: Glucometer 141H 04/01/16 05:28: Anion Gap 9, BUN/Creatinine Ratio 15, Blood Urea Nitrogen 17, Calcium Level 8.5 , Carbon Dioxide Level 19L, Chloride Level 109H, Creatinine 1.13, Estimat Glomerular Filtration Rate 50, Glucose Level 149H, Hematocrit 34L, Hemoglobin 10.9L, Mean Corpuscular Hemoglobin 29, Mean Corpuscular Hemoglobin Concent 32, Mean Corpuscular Volume 89, Mean Platelet Volume 9.2, Platelet Count 393, Potassium Level 3.9, Red Blood Count 3.79L, Red Cell Distribution Width 15.2H, Sodium Level 137, White Blood Count 8.5 04/01/16 05:54: Glucometer 171H 04/01/16 11:09: Glucometer 176H 04/01/16 16:04: Glucometer 206H Microbiology 03/09/16 C. difficile GDH Antigen & Toxins - Final, Complete 03/28/16 Urine Culture - Final, Complete Assessment/Plan Assessment/Plan Assessment/Plan 1. Pressure ulcer, sacrum, unstageable. 2. Pressure ulcer, L knee, stage 2. 3. Peripheral arterial disease. Plan: Will observe with current dressings. QUINN HAWK MD Apr 01, 2016 7:37 pm
[2016-04-01] MEDS: ENOXAPARIN 40 MG/0.4 ML (LOVENOX) SYR SC SCH (19:51)
[2016-04-01] MEDS: ATORVASTATIN 40 MG (LIPITOR) TABLET PO SCH (20:00)
[2016-04-01] MEDS: inSUlin DETERMIR 1 UNIT/0.01 ML (LEVEMIR) CHARGE PER UNIT SQ SCH (20:02)
[2016-04-02] MEDS: oxyCODONE/APAP 5/325MG (PERCOCET 5) TABLET PO PRN ×2 (02:55→22:14)
[2016-04-02 05:00] VITALS: BP 115/64
[2016-04-02] MEDS: inSUlin (REGULAR) HUMAN 1 UNIT/0.01 ML (CHARGE PER UNIT) SC SCH ×4 (05:49→21:25)
[2016-04-02] MEDS: DOXYCYCLINE 100 MG (VIBRAMYCIN) TABLET PO SCH ×2 (06:22→17:17)
[2016-04-02] MEDS: DILTIAZEM 120 MG (CARDIZEM CD) CAP PO SCH (08:10)
[2016-04-02] MEDS: DULoxetine 30 MG (CYMBALTA) CAP PO SCH (08:10)
[2016-04-02] MEDS: ASPIRIN E.C. 81 MG (ECOTRIN) TAB PO SCH (08:10)
[2016-04-02] MEDS: CEPHALEXIN 250 MG (KEFLEX) CAP PO SCH (08:10)
[2016-04-02] MEDS: CLOPIDOGREL 75 MG (PLAVIX) TABLET PO SCH (08:10)
[2016-04-02] MEDS: MUPIROCIN 2% OINT 22 GM (BACTROBAN) TUBE TOP SCH ×2 (08:11→22:14)
[2016-04-02] MEDS: GABAPENTIN 600 MG (NEURONTIN) TAB PO SCH ×3 (08:24→20:36)
[2016-04-02] MEDS: SILVER SULFADIAZINE 50 GM CREAM TOP SCH (08:25)
--- NOTE | 2016-04-02 13:14 | Physical Therapy Daily Note ---
PT Daily Note-Current Subjective Pt agreeable to participation in therapy. Mental Status Patient Orientation: Normal For Age Transfers Functional [place] Measure 0=Not Assessed/NA 4=Minimal Assistance 1=Total Assistance 5=Supervision or Setup 2=Maximal Assistance 6=Modified [place] 3=Moderate Assistance 7=Complete IndependenceIRFPAI Quality Coding Scale 6 Independent with activity with or without an assistive device 5 Patient requires set up or clean up by helper. Patient completes activity by themselves 4 Supervision or touching assist (CGA). [place] provide cues , steadying assist 3 The helper provides less than half the effort to complete the activity 2 The helper provides more than half the effort to complete the activity 1 Dependent. The helper does all the effort to complete an activity 7 Patient refused to complete or attempt activity 9 The patient did not perform the activity before the current illness or injury 88 Not attempted due to Medical conditions or safety concerns Transfers (B, C, W/C) (FIM): 5 Rollin Roll Left to Right (QC): 7 Supine to/from Sit: 6 Sit to/from Stand: 5 Sit to Lying (QC): 6 Sit to Stand (QC): 5 Chair/Boe-pq-Awvhd Xfer(QC): 5 Bed to/from Chair: 5 Gait Training Gait (FIM): 2 Distance (FIM): 1=up to 49 ft Distance: 25 Gait Level of Assist: 4 Gait Persons Needed: 1 Gait Assistive Device: FWW Exercises Supine Ex: Bridging, Quad Set, Short Arc Quads, Straight leg raise, Hip abd/add Supine Reps: 20 Seated Therapy Exercises: Long arc quads Seated Reps: 20 Strength exercises performed to facilitate improved safety during transfers and gait. Assessment Pt demonstrated good bed mobility on treatment mat. She continues to have safety issues with ambulation due to (R) leg weakness. She will benefit from continued therapy. PT Short Term Goals Short Term Goals Time Frame: Mar 17, 2016 Gait (FIM): 1 Gait Distance Comment: 10' Gait Level of Assist: 4 Gait Assistive Device: FWW Wheelchair Distance: 150'x2 PT Paper Twister Tender Goals Snf Goals PT Paper Twister Tender Goals Time Frame: Mar 31, 2016 Transfers (B,C,W/C) (FIM): 5 Sit to Lying (QC): 4 Lying-Sitting on Side/Bed(QC): 4 Sit to Stand (QC): 4 Rollin Roll Left to Right (QC): 4 Chair/Uel-hz-Wwwtf Xfer(QC): 4 Car Transfer (QC): 4 Gait (FIM): 1 Distance: 20' Walk 10 feet (QC): 4 Walk 10ft-Uneven Surface(QC): 4 Walk 50ft with 2 Turns (QC): 88 Walk 150 ft (QC): 88 Gait Level of Assist: 5 Gait Assistive Device: FWW Wheelchair (FIM): 6 Distance: 150' Wheelchair Level of Assist: 6 Wheel 50 feet with 2 turns (QC: 6 Stairs (FIM): 2 # of Steps: 4 1 Step (curb) (QC): 4 4 Steps (QC): 4 12 Steps (QC): 88 Stairs Level Of Assist: 4 Picking up an Object (QC): 88 PT Plan Treatment/Plan Treatment Plan: Continue Plan of Care Treatment Plan: Bed Mobility, Education, Functional Activity Mahad, Functional Strength, Group Therapy, Gait, Safety, Therapeutic Exercise, Transfers Treatment Duration: Mar 31, 2016 Visits Per Week: 10-11 Minutes/Day (M-F): 60-90 Minutes/Day (Sat/[place]): 15-30 Time/GCodes Time In: 1230 Time Out: 1245 Total Billed Treatment Time: 15 Total Billed Treatment visit, exercise 15 min NANCI CAAL PT Apr 02, 2016 13:14
[2016-04-02 18:06] VITALS: BP 124/82
[2016-04-02] MEDS: ENOXAPARIN 40 MG/0.4 ML (LOVENOX) SYR SC SCH (20:36)
[2016-04-02] MEDS: ATORVASTATIN 40 MG (LIPITOR) TABLET PO SCH (20:36)
[2016-04-02] MEDS: inSUlin DETERMIR 1 UNIT/0.01 ML (LEVEMIR) CHARGE PER UNIT SQ SCH (20:37)
[2016-04-02] MEDS: ALPRAZolam 0.5 MG (XANAX) TAB PO PRN (22:14)
[2016-04-03] MEDS: inSUlin (REGULAR) HUMAN 1 UNIT/0.01 ML (CHARGE PER UNIT) SC SCH ×4 (05:07→21:00)
[2016-04-03 05:30] VITALS: BP 118/74
[2016-04-03] MEDS: DOXYCYCLINE 100 MG (VIBRAMYCIN) TABLET PO SCH (06:05)
[2016-04-03] MEDS: DULoxetine 30 MG (CYMBALTA) CAP PO SCH (08:23)
[2016-04-03] MEDS: ZINC OXIDE 16% OINT (BUTT PASTE) 113 GM TUBE TOP PRN (08:23)
[2016-04-03] MEDS: GABAPENTIN 600 MG (NEURONTIN) TAB PO SCH ×3 (08:23→20:35)
[2016-04-03] MEDS: SILVER SULFADIAZINE 50 GM CREAM TOP SCH (08:23)
[2016-04-03] MEDS: DILTIAZEM 120 MG (CARDIZEM CD) CAP PO SCH (08:24)
[2016-04-03] MEDS: ASPIRIN E.C. 81 MG (ECOTRIN) TAB PO SCH (08:24)
[2016-04-03] MEDS: MUPIROCIN 2% OINT 22 GM (BACTROBAN) TUBE TOP SCH ×2 (08:24→19:29)
[2016-04-03] MEDS: CLOPIDOGREL 75 MG (PLAVIX) TABLET PO SCH (08:24)
--- NOTE | 2016-04-03 09:55 | Cardiology Progress Note ---
Subjective Subjective/Events-last exam patient is feeling well. Eating breakfast. No new complaint. Review of Systems General: No Chills, No Night Sweats, No Fatigue, No Malaise, No Appetite, No Other HEENT: No Head Aches, No Visual Changes, No Eye Pain, No Ear Pain, No Dysphasia , No Sinus Congestion, No Post Nasal Drip, No Sore Throat, No Other Pulmonary: No Dyspnea, No Cough, No Pleuritic Chest Pain, No Other Cardiovascular: No: Chest Pain, Edema, Lt Headedness, Orthopnea, Other, Palpitations, Paroxysmal Noc. Dyspnea Objective-Cardiology Exam Last Set of Vital Signs Vital Signs 04/03/16 04/03/16 05:30 08:54 Temp 97.9 Pulse 84 Resp 20 B/P 118/74 Pulse Ox 99 O2 Delivery Room Air Capillary Refill : Less Than 3 Seconds I&O Intake and Output 04/03/16 00:00 Intake Total 1820 ml Balance 1820 ml Intake Oral 1820 ml # Voids 9 # Bowel Movements 1 General: Alert, No Acute Distress HEENT: Atraumatic Neck: Supple, No JVD, No Thyromegaly Lungs: Normal Air Movement Heart: Regular Rate, Normal S1, Normal S2, No Murmurs Abdomen: Normal Bowel Sounds, Soft, No Tenderness Extremities: Other (The patient has been noted to have an ulcer of the R foot which is under the care of Dr. Mas.) Skin: Other (sacral(cluster of two) 0.3 x 0.4 x 0.3 cm, base 100% slough, L knee -- 1.2 x 1.7 x 0.2 cm, base 100% slough.) Neuro: Normal Speech, Strength at 5/5 X4 Ext, Other (mild weakness RLE) Psych/Mental Status: Mental Status NL Results Lab Laboratory Tests Test 04/02/16 11:09 04/02/16 15:46 04/02/16 21:19 04/03/16 04:56 Range/Units Glucometer 164 H 184 H 201 H 134 H 70-110 MG/DL A/P-Cardiology Admission Diagnosis Hypotension Paroxysmal atrial fibrillation Hyperlipidemia Peripheral arterial disease Diabetes mellitus Assessment/Plan Right leg swelling, extensive peripheral arterial disease, angiogram showed severe disease at multiple segment at the left SFA which will cause slow healing of her stump, right lower extremity has severe popliteal artery stenosis , anterior tibial artery has severe stenosis, tibial peroneal trunk has severe stenosis which will require balloon angioplasty and possibly drug-coated balloon which will be staged at a later point. Continue with medical therapy for now Chronic renal insufficiency, continue to monitor renal function, hydrate, total contrast used is 38 milliliters of contrast, evaluate BMP in the morning Paroxysmal atrial fibrillation, reporting episode of atrial fibrillation during her hospital stay in January at [facility]. She is not on oral anticoagulation, no signs of bleeding. Probably transient episode of atrial fibrillation. She denied any previous history prior to her surgery. No syncope was reported. Currently in sinus rhythm. Continue to monitor C. difficile colitis, improved, off isolation at this time. 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 Anemia, monitor H&H Hyperlipidemia, maintained on Lipitor. Monitor lipids Diabetes mellitus, followed and managed by primary care physician Tobaccoism, educated in length on smoking cessation Depression, anxiety. Managed by primary care physician Debility, receiving physical therapy Clinical Quality Measures DVT/VTE Risk/Contraindication: Risk Factor Score Per Nursin RFS Level Per Nursing on Admit: 4+=Very High MILADY SHANNON MD Apr 03, 2016 09:55
[2016-04-03] MEDS: ALPRAZolam 0.5 MG (XANAX) TAB PO PRN (16:17)
[2016-04-03 17:05] VITALS: BP 127/85
[2016-04-03] MEDS: oxyCODONE/APAP 5/325MG (PERCOCET 5) TABLET PO PRN ×2 (18:42→23:35)
[2016-04-03] MEDS: ATORVASTATIN 40 MG (LIPITOR) TABLET PO SCH (20:35)
[2016-04-03] MEDS: ENOXAPARIN 40 MG/0.4 ML (LOVENOX) SYR SC SCH (20:35)
[2016-04-03] MEDS: inSUlin DETERMIR 1 UNIT/0.01 ML (LEVEMIR) CHARGE PER UNIT SQ SCH (20:35)
[2016-04-04 05:15] VITALS: BP 135/81
[2016-04-04] MEDS: inSUlin (REGULAR) HUMAN 1 UNIT/0.01 ML (CHARGE PER UNIT) SC SCH ×4 (05:31→22:31)
[2016-04-04 06:07] LABS: CALCIUM 8.5 MG/DL (8.5-10.1); CREATININE SERUM 1.33 MG/DL (0.60-1.30); POTASSIUM 3.7 MMOL/L (3.6-5.0)
--- NOTE | 2016-04-04 08:23 | Cardiology Progress Note ---
Subjective Subjective/Events-last exam Patient up in wheelchair, no new complaints. Denies any CP or dyspnea. Review of Systems General: No Night Sweats, No Fatigue, No Malaise, No Appetite HEENT: No Visual Changes, No Dysphasia, No Sore Throat Pulmonary: No Dyspnea, No Cough Cardiovascular: No: Chest Pain, Palpitations Gastrointestinal: No: Abdominal Pain, Nausea, Vomiting Genitourinary: No Dysuria, No Frequency Musculoskeletal: No: back pain, neck pain Neurological: No: Change in speech, Confusion, Numbness, Weakness Objective-Cardiology Exam Last Set of Vital Signs Vital Signs 04/04/16 05:15 Temp 97.7 Pulse 98 Resp 18 B/P 135/81 Pulse Ox 98 O2 Delivery Room Air Capillary Refill : Less Than 3 Seconds I&O Intake and Output 04/03/16 23:59 Intake Total 2060 ml Balance 2060 ml Intake Oral 2060 ml # Voids 7 # Bowel Movements 1 General: Alert, No Acute Distress HEENT: Atraumatic Neck: Supple, No JVD, No Thyromegaly Lungs: Normal Air Movement Heart: Regular Rate, Normal S1, Normal S2, No Murmurs Abdomen: Normal Bowel Sounds, Soft, No Tenderness Extremities: Other (The patient has been noted to have an ulcer of the R foot which is under the care of Dr. Mas.) Skin: Other (Sacral wounds are essentially healed. L knee wound unchanged.) Neuro: Normal Speech, Strength at 5/5 X4 Ext, Other (mild weakness RLE) Psych/Mental Status: Mental Status NL Results Lab Laboratory Tests 04/04/16 05:35 A/P-Cardiology Admission Diagnosis Hypotension Paroxysmal atrial fibrillation Hyperlipidemia Peripheral arterial disease Diabetes mellitus Assessment/Plan Right leg swelling, extensive peripheral arterial disease, angiogram showed severe disease at multiple segment at the left SFA which will cause slow healing of her stump, right lower extremity has severe popliteal artery stenosis , anterior tibial artery has severe stenosis, tibial peroneal trunk has severe stenosis which will require balloon angioplasty and possibly drug-coated balloon which will be staged at a later point. Continue with medical therapy for now Chronic renal insufficiency, continue to monitor renal function, hydrate, total contrast used during procedure was 38 milliliters of contrast. Paroxysmal atrial fibrillation, reporting episode of atrial fibrillation during her hospital stay in January at [facility]. She is not on oral anticoagulation, no signs of bleeding. Probably transient episode of atrial fibrillation. She denied any previous history prior to her surgery. No syncope was reported. Currently in sinus rhythm. Continue to monitor C. difficile colitis, improved, off isolation at this time. 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 Anemia, monitor H&H Hyperlipidemia, maintained on Lipitor. Monitor lipids Diabetes mellitus, followed and managed by primary care physician Tobaccoism, educated in length on smoking cessation Depression, anxiety. Managed by primary care physician Debility, receiving physical therapy Clinical Quality Measures DVT/VTE Risk/Contraindication: Risk Factor Score Per Nursin RFS Level Per Nursing on Admit: 4+=Very High LINH WALLACE Apr 04, 2016 08:23
--- NOTE | 2016-04-04 08:45 | Progress Note (SOAP) ---
Subjective Subjective/Events-last exam pressure ulcer stage II. Weakness. Amputation of leg. Patient feels positive today. Physical therapy and occupational states patient is improving Objective Exam Vital Signs Date Time Temp Pulse Resp B/P Pulse Ox O2 Delivery O2 Flow Rate FiO2 04/04/16 05:15 97.7 98 18 135/81 98 Room Air 04/03/16 20:43 Room Air 04/03/16 17:05 98.0 96 18 127/85 99 Room Air 04/03/16 08:54 Room Air I & O 04/04/16 07:00 Intake Total 2450 ml Balance 2450 ml Capillary Refill : Less Than 3 Seconds General Appearance: No Apparent Distress WD/WN HEENT: Normal ENT Inspection Neck: Full Range of Motion Normal Inspection Respiratory: Chest Non Tender Lungs Clear Normal Breath Sounds No Accessory Muscle Use No Respiratory Distress Cardiovascular: Regular Rate, Rhythm No Murmur Gastrointestinal: non tender soft Results Lab Laboratory Tests 04/03/16 11:27: Glucometer 224H 04/03/16 16:05: Glucometer 224H 04/03/16 21:41: Glucometer 178H 04/04/16 05:27: Glucometer 179H 04/04/16 05:35: Anion Gap 10, BUN/Creatinine Ratio 19, Blood Urea Nitrogen 25H, Calcium Level 8.5, Carbon Dioxide Level 18L, Chloride Level 109H, Creatinine 1.33H, Estimat Glomerular Filtration Rate 41, Glucose Level 198H, Potassium Level 3.7, Sodium Level 137 Microbiology 03/09/16 C. difficile GDH Antigen & Toxins - Final, Complete 03/28/16 Urine Culture - Final, Complete Assessment/Plan Assessment/Plan Assess & Plan/Chief Complaint left below the knee amputation. Diabetes. Peripheral vascular disease. Depression history. Hypertension history. . 03/11/16 left below knee amputation. Diabetes. Peripheral vascular disease. History of hypertension. C. difficile. Hypotensive. Health lisinopril. . Left knee below amputation. Diabetes. Peripheral vascular disease. History of atrial fibrillation. Patient in sinus rhythm. Hypotension. C. difficile. Diarrhea improving. . 03/15/16. Left below the knee amputation. Diabetes. Peripheral vascular disease. Depression history. Atrial fib. Blood pressure goodt and heart rate within normal limits. . 03/16/16. Left below the knee amputation. Peripheral vascular disease. Diabetes. C. difficile. History of atrial fibrillation. Diarrhea better. Potassium 3.3 Will replace. Patient has renal insufficiency. . 03/17/16. Left below the knee amputation. Diabetes. Peripheral vascular disease. Depression history. Patient doing better. Patient happy. Patient improving. . 03/18/16. Left below the knee amputation. Diabetes. 4 vascular disease. Depression history. UA shows infection. C. difficile. To put on antibiotics only for 2 days when get sensitivity. . 03/21/16. Left below the knee amputation. C. difficile. Stools are better. Diabetes. Peripheral vascular disease. To check UA tomorrow. . 02/3116. Left below the knee amputation. Diabetes. Peripheral vascular disease. Hypertension history. Patient doing better and happy. infection nitrate negative now done today. . 03/23/16. infection with different organism now. Waiting for sensitivity. Patient doing much better. Patient positive. Patient hopping 6 steps. Wound is healing. Patient in the right direction . 03/24/16. Left below the knee amputation. Diabetes. Peripheral vascular disease. Depression. Patient doing better. Patient improving. . 03/25/16 area Left below the knee amputation. Diabetes. Peripheral vascular disease. Depression. Patient is improving and feeling better about herself. . 03/28/16. Left below the knee amputation. Diabetes under better control. Peripheral vascular disease. infection to check urine today. Depression history. Hypertension. . 03/29/16. Patient worried about toe. Toe has some redness to it. To do arterial Doppler . [employer] Installation [employer] to get involved again. To start on antibiotics. Patient not to smoke. Left below the knee amputation. Diabetes. Peripheral vascular disease. Depression. . . Left knee below amputation. Diabetes. Peripheral vascular disease. Depression. Hypertension. . 03/31/16. Kidney function better. Patient have procedure done today. Left below the knee amputation. Diabetes okay. Peripheral vascular disease. Hypertension history. . 04/01/16. Kidney function good. Patient has peripheral vascular disease. Left knee amputation. Peripheral vascular disease. Diabetes under control. Hypertension history. . 04/04/16. Left below the knee amputation. Diabetes. Peripheral vascular disease. Patient feel she is doing better. Occupational and physical therapy feels patient is improving Diagnosis/Problems: Clinical Quality Measures DVT/VTE Risk/Contraindication: Risk Factor Score Per Nursin RFS Level Per Nursing on Admit: 4+=Very High URSULA RENEE DO Apr 04, 2016 08:44
--- NOTE | 2016-04-04 08:52 | Cardiology Progress Note ---
Subjective Subjective/Events-last exam Patient is in a chair, feeling better, no new complaint Review of Systems General: No Chills, No Night Sweats, No Fatigue, No Malaise, No Appetite, No Other HEENT: No Head Aches, No Visual Changes, No Eye Pain, No Ear Pain, No Dysphasia , No Sinus Congestion, No Post Nasal Drip, No Sore Throat, No Other Pulmonary: No Dyspnea, No Cough, No Pleuritic Chest Pain, No Other Cardiovascular: No: Chest Pain, Edema, Lt Headedness, Orthopnea, Other, Palpitations, Paroxysmal Noc. Dyspnea Objective-Cardiology Exam Last Set of Vital Signs Vital Signs 04/04/16 05:15 Temp 97.7 Pulse 98 Resp 18 B/P 135/81 Pulse Ox 98 O2 Delivery Room Air Capillary Refill : Less Than 3 Seconds I&O Intake and Output 04/04/16 00:00 Intake Total 2060 ml Balance 2060 ml Intake Oral 2060 ml # Voids 7 # Bowel Movements 1 General: Alert, No Acute Distress HEENT: Atraumatic Neck: Supple, No JVD, No Thyromegaly Lungs: Normal Air Movement Heart: Regular Rate, Normal S1, Normal S2, No Murmurs Abdomen: Normal Bowel Sounds, Soft, No Tenderness Extremities: Other (The patient has been noted to have an ulcer of the R foot which is under the care of Dr. Mas.) Skin: No Rashes, Other (Sacral wounds are essentially healed. L knee wound unchanged.) Neuro: Normal Speech, Strength at 5/5 X4 Ext, Other (mild weakness RLE) Psych/Mental Status: Mental Status NL Results Lab Laboratory Tests 04/04/16 05:35 A/P-Cardiology Admission Diagnosis Hypotension Paroxysmal atrial fibrillation Hyperlipidemia Peripheral arterial disease Diabetes mellitus Assessment/Plan Right leg swelling, extensive peripheral arterial disease, angiogram showed severe disease at multiple segment at the left SFA which will cause slow healing of her stump, right lower extremity has severe popliteal artery stenosis , anterior tibial artery has severe stenosis, tibial peroneal trunk has severe stenosis which will require balloon angioplasty and possibly drug-coated balloon which will be staged at a later point. Continue with medical therapy for now Chronic renal insufficiency, continue to monitor renal function, hydrate, total contrast used during procedure was 38 milliliters of contrast, slightly worse today, educated on increasing oral intake Paroxysmal atrial fibrillation, reporting episode of atrial fibrillation during her hospital stay in January at [facility]. She is not on oral anticoagulation, no signs of bleeding. Probably transient episode of atrial fibrillation. She denied any previous history prior to her surgery. No syncope was reported. Currently in sinus rhythm. Continue to monitor C. difficile colitis, improved, off isolation at this time. 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 Anemia, monitor H&H Hyperlipidemia, maintained on Lipitor. Monitor lipids Diabetes mellitus, followed and managed by primary care physician Tobaccoism, educated in length on smoking cessation Depression, anxiety. Managed by primary care physician Debility, receiving physical therapy Clinical Quality Measures DVT/VTE Risk/Contraindication: Risk Factor Score Per Nursin RFS Level Per Nursing on Admit: 4+=Very High MILADY SHANNON MD Apr 04, 2016 08:52
[2016-04-04] MEDS: MUPIROCIN 2% OINT 22 GM (BACTROBAN) TUBE TOP SCH ×2 (09:00→21:15)
[2016-04-04] MEDS: DILTIAZEM 120 MG (CARDIZEM CD) CAP PO SCH (09:03)
[2016-04-04] MEDS: CLOPIDOGREL 75 MG (PLAVIX) TABLET PO SCH (09:03)
[2016-04-04] MEDS: GABAPENTIN 600 MG (NEURONTIN) TAB PO SCH ×3 (09:03→21:13)
[2016-04-04] MEDS: ASPIRIN E.C. 81 MG (ECOTRIN) TAB PO SCH (09:03)
[2016-04-04] MEDS: DULoxetine 30 MG (CYMBALTA) CAP PO SCH (09:03)
[2016-04-04] MEDS: SILVER SULFADIAZINE 50 GM CREAM TOP SCH (09:19)
--- NOTE | 2016-04-04 09:45 | Occupational Ther Daily Note ---
OT Current Status-Daily Note Subjective Pt sitting EOB, agrees to treatment. Pt has no c/o pain. Mental Status/Objective Functional [place] Measure 0=Not Assessed/NA 4=Minimal Assistance 1=Total Assistance 5=Supervision or Setup 2=Maximal Assistance 6=Modified [place] 3=Moderate Assistance 7=Complete [place] ADL-Treatment Transfer EOB to w/c with close SBA using FWW. Pt retrieved clothing from closet at w/c level without assistance. Grooming tasks completed seated at sink. Pt brushed teeth, shaved face, and combed hair with modified independence at w/c level. Pt requests shower this am. Transfer w/c <-> shower chair with minimal assistance using FWW and grab bars for safety. Pt able to wash/dry all areas with SBA. Weight shifts left and right to wash/dry buttocks. Don pullover shirt with modified independence. Pt donned underwear and shorts with CGA for standing balance during pant hike using FWW for balance. RN present to place dressing on right third toe and apply JH hose. Pt able to don sock without assistance. Functional [place] Measure 0=Not Assessed/NA 4=Minimal Assistance 1=Total Assistance 5=Supervision or Setup 2=Maximal Assistance 6=Modified [place] 3=Moderate Assistance 7=Complete IndependenceIRFPAI Quality Coding Scale 6 Independent with activity with or without an assistive device 5 Patient requires set up or clean up by helper. Patient completes activity by themselves 4 Supervision or touching assist (CGA). [place] provide cues , steadying assist 3 The helper provides less than half the effort to complete the activity 2 The helper provides more than half the effort to complete the activity 1 Dependent. The helper does all the effort to complete an activity 7 Patient refused to complete or attempt activity 9 The patient did not perform the activity before the current illness or injury 88 Not attempted due to Medical conditions or safety concerns Grooming (FIM): 6 Oral Hygiene (QC): 6 Bathing (FIM): 5 Upper Body (FIM): 6 Lower Body Dressing (FIM): 4 Shower Transfer(FIM): 4 Other Treatment W/c mobility to/from therapy gym without assistance. Pt performed bilateral UE exercises to promote increased strength needed for ADLs and transfers. Pt completed shoulder flexion, abduction, biceps curls, and triceps extension exercises x20 reps with green theraband. Arm bike x13 minutes to increase overall strength and activity tolerance. Pt completed task with moderate resistance, no rest breaks needed. Pt returned to room, sitting in w/c after session. OT Short Term Goals Short Term Goals Time Frame: Mar 17, 2016 Bathing(FIM): 4 Lower Body Dressing(FIM): 3 Toileting(FIM): 3 Toilet/Commode Transfer(FIM): 4 Shower Transfer(FIM): 3 Additional Short Term Goals: 1-Demonstrate ADL Tasks, 2-Verbalize Understanding , 3-ImproveStrength/Mahad 1=Demonstrate adherence to instructed precautions during ADL tasks. 2=Patient will verbalize/demonstrate understanding of assistive devices/ modifications for ADL. 3=Patient will improve strength/tolerance for activity to enable patient to perform ADL's. OT Usp Goals Usp Goals Time Frame: Mar 31, 2016 Eating (FIM): 6 Eating (QC): 6 Groomin Oral Hygiene (QC): 6 Bathing(FIM): 5 Shower/Bathe Self (QC): 4 Upper Body Dressing(FIM): 6 Upper Body Dressing (QC): 6 Lower Body Dressing(FIM): 5 Lower Body Dressing (QC): 4 On/Off Footwear (QC): 5 Toileting(FIM): 5 Toileting Hygiene (QC): 4 Toilet/Commode Transfer(FIM): 5 Toilet/Commode Transfer (QC): 4 Shower Transfer(FIM): 4 Additional Goals: 1-Demonstrate ADL Tasks, 2-Verbalize Understanding, 3- ImproveStrength/Mahad 1=Demonstrate adherence to instructed precautions during ADL tasks. 2=Patient will verbalize/demonstrate understanding of assistive devices/ modifications for ADL. 3=Patient will improve strength/tolerance for activity to enable patient to perform ADL's. OT Education/Plan Problem List/Assessment Pt demonstrates decreased mobility, strength, activity tolerance, and ADL performance. Pt to benefit from skilled OT intervention for ADL training, transfers, strengthening, adaptive equipment training as needed, and home safety education to maximize level of function and allow safe discharge. Discharge Recommendations Plan/Recommendations: Continue POC Treatment Plan/Plan of Care Patient would benefit from OT for education, treatment and training to promote independence in ADL's, mobility, safety and/or upper extremity function for ADL' s. Plan of Care: ADL Retraining, Functional Mobility, Group Exercise/Act as Ind, UE Funct Exercise/Act Treatment Duration: Mar 31, 2016 Visits Per Week: 10-11 Minutes/Day (M-F): 60-90 Minutes/Day (Sat/[place]): PRN Agreement: Yes Rehab Potential: Fair Time/GCodes Start Time: 08:00 Stop Time: 09:30 Total Time Billed (hr/min): 90 Billed Treatment Time 1 visit, ADLx4(60minutes), EXx2(30minutes) OLIVIA NELSON OT Apr 04, 2016 09:45
--- NOTE | 2016-04-04 11:18 | Physical Therapy Daily Note ---
PT Daily Note-Current Subjective Patient in wheelchair pre tx, agrees to PT, pleasant and cooperative. Pain Numeric Pain Scale: 0-No Pain Appearance Patient in wheelchair in her room post tx, has nurse call, phone, tray, all needs met. Mental Status Patient Orientation: Normal For Age Transfers Functional [place] Measure 0=Not Assessed/NA 4=Minimal Assistance 1=Total Assistance 5=Supervision or Setup 2=Maximal Assistance 6=Modified [place] 3=Moderate Assistance 7=Complete IndependenceIRFPAI Quality Coding Scale 6 Independent with activity with or without an assistive device 5 Patient requires set up or clean up by helper. Patient completes activity by themselves 4 Supervision or touching assist (CGA). [place] provide cues , steadying assist 3 The helper provides less than half the effort to complete the activity 2 The helper provides more than half the effort to complete the activity 1 Dependent. The helper does all the effort to complete an activity 7 Patient refused to complete or attempt activity 9 The patient did not perform the activity before the current illness or injury 88 Not attempted due to Medical conditions or safety concerns Transfers (B, C, W/C) (FIM): 5 Scootin Rollin Supine to/from Sit: 5 Sit to/from Stand: 5 Bed to/from Chair: 5 Patient needs extra time and effort for supine to sit but she can do it by herself. Gait Training Gait (FIM): 1 Distance: 20'x3 Gait Level of Assist: 4 (CGA) Gait Persons Needed: 1 Gait Assistive Device: FWW slow, patient was pretty fatigued after the third walk Wheelchair Training Does the Pt Use a Wheelchair?: Yes Wheelchair (FIM): 6 Distance: 150'x2 Type of Wheelchair: Manual slow, patient is requesting some gloves to protect her hands. Exercises left hip flexor stretch for 5 min, left hip flexion and abduction x 20, left quad set x20, bridging using right leg x 20 NuStep Minutes: 10 NuStep Workload: 4 Treatments bed mobility and transfers, ambulation, wheelchair mobility, functional strengthening and stretching Assessment Current Status: Fair Progress better ambulation, still having some trouble with supine to sit PT Short Term Goals Short Term Goals Time Frame: Mar 17, 2016 Gait (FIM): 1 Gait Distance Comment: 10' Gait Level of Assist: 4 Gait Assistive Device: FWW Wheelchair Distance: 150'x2 PT Fdc Goals Fdc Goals PT Prep Room Supervisor Goals Time Frame: Mar 31, 2016 Transfers (B,C,W/C) (FIM): 5 Sit to Lying (QC): 4 Lying-Sitting on Side/Bed(QC): 4 Sit to Stand (QC): 4 Rollin Roll Left to Right (QC): 4 Chair/Mlw-if-Hepwy Xfer(QC): 4 Car Transfer (QC): 4 Gait (FIM): 1 Distance: 20' Walk 10 feet (QC): 4 Walk 10ft-Uneven Surface(QC): 4 Walk 50ft with 2 Turns (QC): 88 Walk 150 ft (QC): 88 Gait Level of Assist: 5 Gait Assistive Device: FWW Wheelchair (FIM): 6 Distance: 150' Wheelchair Level of Assist: 6 Wheel 50 feet with 2 turns (QC: 6 Stairs (FIM): 2 # of Steps: 4 1 Step (curb) (QC): 4 4 Steps (QC): 4 12 Steps (QC): 88 Stairs Level Of Assist: 4 Picking up an Object (QC): 88 PT Plan Problem List Problem List: Activity Tolerance, Functional Strength, Safety, Balance, Gait, Transfer, Bed Mobility, ROM Treatment/Plan Treatment Plan: Continue Plan of Care Treatment Plan: Bed Mobility, Education, Functional Activity Mahad, Functional Strength, Group Therapy, Gait, Safety, Therapeutic Exercise, Transfers Treatment Duration: Mar 31, 2016 Visits Per Week: 10-11 Minutes/Day (M-F): 60-90 Minutes/Day (Sat/[place]): 15-30 Safety Risks/Education Patient Education: Gait Training, Transfer Techniques, Correct Positioning, W/ C Management, Safety Issues Teaching Recipient: Patient Teaching Methods: Demonstration, Discussion Response to Teaching: Reinforcement Needed Time/GCodes Time In: 1015 Time Out: 1115 Total Billed Treatment Time: 60 Total Billed Treatment 1 visit GT 15 min WCH 10 min EX 35 min GEM DANIELSON PT Apr 04, 2016 11:18
[2016-04-04] MEDS: oxyCODONE/APAP 5/325MG (PERCOCET 5) TABLET PO PRN ×2 (11:26→21:14)
--- NOTE | 2016-04-04 14:31 | Physical Therapy Daily Note ---
PT Daily Note-Current Subjective Patient in wheelchair pre tx, agrees to PT. Pain Numeric Pain Scale: 0-No Pain Appearance Patient in wheelchair post tx, going to room by herself. Mental Status Patient Orientation: Normal For Age Transfers Functional [place] Measure 0=Not Assessed/NA 4=Minimal Assistance 1=Total Assistance 5=Supervision or Setup 2=Maximal Assistance 6=Modified [place] 3=Moderate Assistance 7=Complete IndependenceIRFPAI Quality Coding Scale 6 Independent with activity with or without an assistive device 5 Patient requires set up or clean up by helper. Patient completes activity by themselves 4 Supervision or touching assist (CGA). [place] provide cues , steadying assist 3 The helper provides less than half the effort to complete the activity 2 The helper provides more than half the effort to complete the activity 1 Dependent. The helper does all the effort to complete an activity 7 Patient refused to complete or attempt activity 9 The patient did not perform the activity before the current illness or injury 88 Not attempted due to Medical conditions or safety concerns Transfers (B, C, W/C) (FIM): 5 Scootin Rollin Supine to/from Sit: 5 Sit to/from Stand: 5 Bed to/from Chair: 5 Patient performed bed mobility much better with just a few cues for positioning. Patient performed sit<->supine x4 each side Wheelchair Training Wheelchair (FIM): 6 Distance: 150' Type of Wheelchair: Manual Exercises LAQ right leg with 2# ankle weight for 5 min, sit to stand x 10 Treatments bed mobility training, functional strengthening Assessment Current Status: Fair Progress much better bed mobility, she did not have near the trouble rolling as she did before PT Short Term Goals Short Term Goals Time Frame: Mar 17, 2016 Gait (FIM): 1 Gait Distance Comment: 10' Gait Level of Assist: 4 Gait Assistive Device: FWW Wheelchair Distance: 150'x2 PT Custodial Goals Information Technology Security Analyst Goals PT Custodial Goals Time Frame: Mar 31, 2016 Transfers (B,C,W/C) (FIM): 5 Sit to Lying (QC): 4 Lying-Sitting on Side/Bed(QC): 4 Sit to Stand (QC): 4 Rollin Roll Left to Right (QC): 4 Chair/Ndh-ft-Rezdg Xfer(QC): 4 Car Transfer (QC): 4 Gait (FIM): 1 Distance: 20' Walk 10 feet (QC): 4 Walk 10ft-Uneven Surface(QC): 4 Walk 50ft with 2 Turns (QC): 88 Walk 150 ft (QC): 88 Gait Level of Assist: 5 Gait Assistive Device: FWW Wheelchair (FIM): 6 Distance: 150' Wheelchair Level of Assist: 6 Wheel 50 feet with 2 turns (QC: 6 Stairs (FIM): 2 # of Steps: 4 1 Step (curb) (QC): 4 4 Steps (QC): 4 12 Steps (QC): 88 Stairs Level Of Assist: 4 Picking up an Object (QC): 88 PT Plan Problem List Problem List: Activity Tolerance, Functional Strength, Safety, Balance, Gait, Transfer, Bed Mobility, ROM Treatment/Plan Treatment Plan: Continue Plan of Care Treatment Plan: Bed Mobility, Education, Functional Activity Mahad, Functional Strength, Group Therapy, Gait, Safety, Therapeutic Exercise, Transfers Treatment Duration: Mar 31, 2016 Visits Per Week: 10-11 Minutes/Day (M-F): 60-90 Minutes/Day (Sat/[place]): 15-30 Safety Risks/Education Patient Education: Transfer Techniques, Correct Positioning, W/C Management, Safety Issues Teaching Recipient: Patient Teaching Methods: Demonstration, Discussion Response to Teaching: Reinforcement Needed Time/GCodes Time In: 1400 Time Out: 1430 Total Billed Treatment Time: 30 Total Billed Treatment 1 visit EX 10 min FA 20 min GEM DANIELSON PT Apr 04, 2016 14:31
--- NOTE | 2016-04-04 18:08 | PM & R (SOAP) Progress Note ---
Subjective Subjective/Events-last exam Patient was seen in her room this evening Appreciate DR Perez note Discussed case with RN Patient SBA for transfers SW texted me re DME needed for discharge which is possible for end of week Will f/u Objective Exam Last Set of Vital Signs Vital Signs Date Time Temp Pulse Resp B/P Pulse Ox O2 Delivery O2 Flow Rate FiO2 04/04/16 08:45 Room Air 04/04/16 05:15 97.7 98 18 135/81 98 Capillary Refill : Less Than 3 Seconds I&O Intake and Output 04/04/16 00:00 Intake Total 2060 ml Balance 2060 ml Intake Oral 2060 ml # Voids 7 # Bowel Movements 1 General: Alert, No Acute Distress HEENT: Atraumatic Neck: Supple, No JVD, No Thyromegaly Lungs: Normal Air Movement Heart: Regular Rate, Normal S1, Normal S2, No Murmurs Abdomen: Normal Bowel Sounds, Soft, No Tenderness Extremities: Other (The patient has been noted to have an ulcer of the R foot which is under the care of Dr. Mas.) Skin: No Rashes, Other (Sacral wounds are essentially healed. L knee wound unchanged.) Neuro: Normal Speech, Strength at 5/5 X4 Ext, Other (mild weakness RLE) Psych/Mental Status: Mental Status NL Results Lab Laboratory Tests 04/01/16 20:10: Glucometer 124H 04/02/16 05:27: Glucometer 155H 04/02/16 11:09: Glucometer 164H 04/02/16 15:46: Glucometer 184H 04/02/16 21:19: Glucometer 201H 04/03/16 04:56: Glucometer 134H 04/03/16 11:27: Glucometer 224H 04/03/16 16:05: Glucometer 224H 04/03/16 21:41: Glucometer 178H 04/04/16 05:27: Glucometer 179H 04/04/16 05:35: Anion Gap 10, BUN/Creatinine Ratio 19, Blood Urea Nitrogen 25H, Calcium Level 8.5, Carbon Dioxide Level 18L, Chloride Level 109H, Creatinine 1.33H, Estimat Glomerular Filtration Rate 41, Glucose Level 198H, Potassium Level 3.7, Sodium Level 137 04/04/16 11:21: Glucometer 158H 04/04/16 16:02: Glucometer 204H Microbiology 03/09/16 C. difficile GDH Antigen & Toxins - Final, Complete 03/28/16 Urine Culture - Final, Complete Assessment/Plan Assessment Left BKA 02-01-16 OSH for gangrenous left foot Postop C DIF bowel colitis associated with sepsis treated at OSH-now on Vanco for ongoing treatment-improved Mild Hypokalemia Mild postop Anemia IDDM controlled HTN with hx of afib now sinus with hypotension depression on meds Tobaccoism declines Smoking cessation Trace edema rt ankle Uncertain if patient would tolerate Freddy hose-Lasix prn ordered-one dose ordered with improvement-resolved UTI with fever now afebrile on Vanco Check sensitivity-done Controlled descent to floor 03-24-16 Onychomycosis of toenails Peripheral Vasc d with claudcation complaints RLE- s/pcath revealing stenosis rt Popliteal artery awaiting possible stent which may be done as an outpatient- Will f/u with SW Cardiology Plan Continue PT/OT DR Barrios to see re cardiac meds with echo ordered-done appreciate his consult and f/u-awaiting f/u labs to clear for stent placement [id number] awaiting stent availability-may be done as outpatient recheck labs-done Lasix times one done-edema improved Completed course of Flagyl for Cdif now on course of Vanco with meds adjusted to promote formed st F/U re sensitivity of Gram Negative rods.-done-now repeat pending Apprediate DR sharp notes and orders Podiatry consult for diabetic foot care-done ESTELLA contacted me last week re letter to support additional financial assistance from [place] so that she may have a home to go to -signed Recheck with patient re resolution of neck pain-improved F/U with Dr Christina and Sophie re further eval and treatment of Periheral Vasc D. RLE-done Next Team Conference for 04/06/16 F/U with SW re Possible discharge by end of week IRMA ESPINOZA MD Apr 04, 2016 18:08
[2016-04-04 18:21] VITALS: BP 134/86
[2016-04-04] MEDS: ATORVASTATIN 40 MG (LIPITOR) TABLET PO SCH (21:13)
[2016-04-04] MEDS: ALPRAZolam 0.5 MG (XANAX) TAB PO PRN (21:13)
[2016-04-04] MEDS: ENOXAPARIN 40 MG/0.4 ML (LOVENOX) SYR SC SCH (21:13)
[2016-04-04] MEDS: inSUlin DETERMIR 1 UNIT/0.01 ML (LEVEMIR) CHARGE PER UNIT SQ SCH (22:30)
[2016-04-05] MEDS: oxyCODONE/APAP 5/325MG (PERCOCET 5) TABLET PO PRN ×2 (01:46→20:10)
[2016-04-05] MEDS: inSUlin (REGULAR) HUMAN 1 UNIT/0.01 ML (CHARGE PER UNIT) SC SCH ×4 (05:17→21:45)
[2016-04-05 05:18] VITALS: BP 127/84
[2016-04-05] MEDS: GABAPENTIN 600 MG (NEURONTIN) TAB PO SCH ×3 (07:59→20:10)
[2016-04-05] MEDS: CLOPIDOGREL 75 MG (PLAVIX) TABLET PO SCH (08:00)
[2016-04-05] MEDS: DULoxetine 30 MG (CYMBALTA) CAP PO SCH (08:00)
[2016-04-05] MEDS: ASPIRIN E.C. 81 MG (ECOTRIN) TAB PO SCH (08:00)
[2016-04-05] MEDS: DILTIAZEM 120 MG (CARDIZEM CD) CAP PO SCH (08:01)
[2016-04-05] MEDS: FUROSEMIDE 20 MG (LASIX) TAB PO PRN (08:01)
[2016-04-05] MEDS: SILVER SULFADIAZINE 50 GM CREAM TOP SCH (08:02)
[2016-04-05] MEDS: ZINC OXIDE 16% OINT (BUTT PASTE) 113 GM TUBE TOP PRN (08:03)
[2016-04-05] MEDS: MUPIROCIN 2% OINT 22 GM (BACTROBAN) TUBE TOP SCH ×2 (08:04→20:11)
--- NOTE | 2016-04-05 08:24 | Cardiology Progress Note ---
Subjective Subjective/Events-last exam Patient sitting up in wheelchair. No new complaints. States possibly being discharged home next week. Review of Systems General: No Night Sweats, No Fatigue, No Malaise HEENT: No Visual Changes, No Dysphasia Pulmonary: No Dyspnea, No Cough Cardiovascular: No: Chest Pain, Palpitations Gastrointestinal: No: Abdominal Pain, Nausea, Vomiting Genitourinary: No Dysuria, No Frequency Musculoskeletal: No: back pain, neck pain Neurological: No: Change in speech, Confusion, Numbness, Weakness Objective-Cardiology Exam Last Set of Vital Signs Vital Signs 04/05/16 05:18 Temp 97.8 Pulse 90 Resp 16 B/P 127/84 Pulse Ox 100 O2 Delivery Room Air Capillary Refill : Less Than 3 Seconds I&O Intake and Output 04/05/16 00:00 Intake Total 2075 ml Balance 2075 ml Intake Oral 2075 ml # Voids 8 # Bowel Movements 1 General: Alert, No Acute Distress HEENT: Atraumatic Neck: Supple, No JVD, No Thyromegaly Lungs: Normal Air Movement Heart: Regular Rate, Normal S1, Normal S2, No Murmurs Abdomen: Normal Bowel Sounds, Soft, No Tenderness Extremities: Other (The patient has been noted to have an ulcer of the R foot which is under the care of Dr. Mas.) Skin: No Rashes, Other (Sacral wounds are essentially healed. L knee wound unchanged.) Neuro: Normal Speech, Strength at 5/5 X4 Ext, Other (mild weakness RLE) Psych/Mental Status: Mental Status NL A/P-Cardiology Admission Diagnosis Hypotension Paroxysmal atrial fibrillation Hyperlipidemia Peripheral arterial disease Diabetes mellitus Assessment/Plan Right leg swelling, extensive peripheral arterial disease, angiogram showed severe disease at multiple segment at the left SFA which will cause slow healing of her stump, right lower extremity has severe popliteal artery stenosis , anterior tibial artery has severe stenosis, tibial peroneal trunk has severe stenosis which will require balloon angioplasty and possibly drug-coated balloon which will be staged at a later point. Continue with medical therapy for now Chronic renal insufficiency, continue to monitor renal function, hydrate, total contrast used during procedure was 38 milliliters of contrast, slightly worse today, educated on increasing oral intake Paroxysmal atrial fibrillation, reporting episode of atrial fibrillation during her hospital stay in January at [facility]. She is not on oral anticoagulation, no signs of bleeding. Probably transient episode of atrial fibrillation. She denied any previous history prior to her surgery. No syncope was reported. Currently in sinus rhythm. Continue to monitor C. difficile colitis, improved, off isolation at this time. 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 Anemia, monitor H&H Hyperlipidemia, maintained on Lipitor. Monitor lipids Diabetes mellitus, followed and managed by primary care physician Tobaccoism, educated in length on smoking cessation Depression, anxiety. Managed by primary care physician Debility, receiving physical therapy Clinical Quality Measures DVT/VTE Risk/Contraindication: Risk Factor Score Per Nursin RFS Level Per Nursing on Admit: 4+=Very High LINH WALLACE Apr 05, 2016 08:24
--- NOTE | 2016-04-05 08:58 | Progress Note (SOAP) ---
Subjective Subjective/Events-last exam patient feel better and doing better. Doing better with physical therapy and occupational therapy. Toe doing good and back doing good. Sugars are okay Objective Exam Vital Signs Date Time Temp Pulse Resp B/P Pulse Ox O2 Delivery O2 Flow Rate FiO2 04/05/16 05:18 97.8 90 16 127/84 100 Room Air 04/04/16 21:00 Room Air 04/04/16 18:21 98.1 86 16 134/86 100 I & O 04/05/16 07:00 Intake Total 1825 ml Balance 1825 ml Capillary Refill : Less Than 3 Seconds General Appearance: No Apparent Distress WD/WN Results Lab Laboratory Tests 04/04/16 11:21: Glucometer 158H 04/04/16 16:02: Glucometer 204H 04/04/16 22:04: Glucometer 237H 04/05/16 05:04: Glucometer 150H Microbiology 03/09/16 C. difficile GDH Antigen & Toxins - Final, Complete 03/28/16 Urine Culture - Final, Complete Assessment/Plan Assessment/Plan Assess & Plan/Chief Complaint left below the knee amputation. Diabetes. Peripheral vascular disease. Depression history. Hypertension history. . 03/11/16 left below knee amputation. Diabetes. Peripheral vascular disease. History of hypertension. C. difficile. Hypotensive. Health lisinopril. . Left knee below amputation. Diabetes. Peripheral vascular disease. History of atrial fibrillation. Patient in sinus rhythm. Hypotension. C. difficile. Diarrhea improving. . 03/15/16. Left below the knee amputation. Diabetes. Peripheral vascular disease. Depression history. Atrial fib. Blood pressure goodt and heart rate within normal limits. . 03/16/16. Left below the knee amputation. Peripheral vascular disease. Diabetes. C. difficile. History of atrial fibrillation. Diarrhea better. Potassium 3.3 Will replace. Patient has renal insufficiency. . 03/17/16. Left below the knee amputation. Diabetes. Peripheral vascular disease. Depression history. Patient doing better. Patient happy. Patient improving. . 03/18/16. Left below the knee amputation. Diabetes. 4 vascular disease. Depression history. UA shows infection. C. difficile. To put on antibiotics only for 2 days when get sensitivity. . 03/21/16. Left below the knee amputation. C. difficile. Stools are better. Diabetes. Peripheral vascular disease. To check UA tomorrow. . 02/3116. Left below the knee amputation. Diabetes. Peripheral vascular disease. Hypertension history. Patient doing better and happy. infection nitrate negative now done today. . 03/23/16. infection with different organism now. Waiting for sensitivity. Patient doing much better. Patient positive. Patient hopping 6 steps. Wound is healing. Patient in the right direction . 03/24/16. Left below the knee amputation. Diabetes. Peripheral vascular disease. Depression. Patient doing better. Patient improving. . 03/25/16 area Left below the knee amputation. Diabetes. Peripheral vascular disease. Depression. Patient is improving and feeling better about herself. . 03/28/16. Left below the knee amputation. Diabetes under better control. Peripheral vascular disease. infection to check urine today. Depression history. Hypertension. . 03/29/16. Patient worried about toe. Toe has some redness to it. To do arterial Doppler . Metabolic Specialist to get involved again. To start on antibiotics. Patient not to smoke. Left below the knee amputation. Diabetes. Peripheral vascular disease. Depression. . . Left knee below amputation. Diabetes. Peripheral vascular disease. Depression. Hypertension. . 03/31/16. Kidney function better. Patient have procedure done today. Left below the knee amputation. Diabetes okay. Peripheral vascular disease. Hypertension history. . 04/01/16. Kidney function good. Patient has peripheral vascular disease. Left knee amputation. Peripheral vascular disease. Diabetes under control. Hypertension history. . 04/04/16. Left below the knee amputation. Diabetes. Peripheral vascular disease. Patient feel she is doing better. Occupational and physical therapy feels patient is improving. . 04/05/16. Left below the knee amputation. Diabetes. Peripheral vascular disease. [place] better. Back better Diagnosis/Problems: Clinical Quality Measures DVT/VTE Risk/Contraindication: Risk Factor Score Per Nursin RFS Level Per Nursing on Admit: 4+=Very High URSULA RENEE DO Apr 05, 2016 08:58
--- NOTE | 2016-04-05 09:25 | Occupational Ther Daily Note ---
OT Current Status-Daily Note Subjective Pt sitting in w/c, agrees to treatment. No c/o pain at this time. Mental Status/Objective Functional [place] Measure 0=Not Assessed/NA 4=Minimal Assistance 1=Total Assistance 5=Supervision or Setup 2=Maximal Assistance 6=Modified [place] 3=Moderate Assistance 7=Complete [place] ADL-Treatment Pt states she has a tub shower and will be getting a shower bench. Instruction provided regarding safe transfer using shower bench. Pt transferred w/c <-> extended shower bench x2 trials with CGA and skilled cues for technique and safety using FWW. Functional [place] Measure 0=Not Assessed/NA 4=Minimal Assistance 1=Total Assistance 5=Supervision or Setup 2=Maximal Assistance 6=Modified [place] 3=Moderate Assistance 7=Complete IndependenceIRFPAI Quality Coding Scale 6 Independent with activity with or without an assistive device 5 Patient requires set up or clean up by helper. Patient completes activity by themselves 4 Supervision or touching assist (CGA). [place] provide cues , steadying assist 3 The helper provides less than half the effort to complete the activity 2 The helper provides more than half the effort to complete the activity 1 Dependent. The helper does all the effort to complete an activity 7 Patient refused to complete or attempt activity 9 The patient did not perform the activity before the current illness or injury 88 Not attempted due to Medical conditions or safety concerns Other Treatment Pt performed w/c mobility to therapy gym without assistance. Arm bike x14 minutes to increase overall strength and activity tolerance needed for functional tasks. Pt performed task with moderate resistance and slow pace. No rest breaks needed. Bilateral UE exercises completed to increase strength needed for ADLs and transfers. Pt performed shoulder flexion, abduction, shoulder press, biceps curls, and triceps extension exercises x20 reps with 2# weight. Brief rest breaks between exercises. Arc activity with bilateral UE with 2# wrist weights in place to increase strength. Fine motor activity with bilateral hands with 2# weights in place to increase strength and fine motor coordination. W/c pushups x20 reps to increase strength for transfers. Pt returned to room, sitting in w/c with needs met after session. OT Short Term Goals Short Term Goals Time Frame: Mar 17, 2016 Bathing(FIM): 4 Lower Body Dressing(FIM): 3 Toileting(FIM): 3 Toilet/Commode Transfer(FIM): 4 Shower Transfer(FIM): 3 Additional Short Term Goals: 1-Demonstrate ADL Tasks, 2-Verbalize Understanding , 3-ImproveStrength/Mahad 1=Demonstrate adherence to instructed precautions during ADL tasks. 2=Patient will verbalize/demonstrate understanding of assistive devices/ modifications for ADL. 3=Patient will improve strength/tolerance for activity to enable patient to perform ADL's. OT Canary Breeder Goals Retirement Goals Time Frame: Mar 31, 2016 Eating (FIM): 6 Eating (QC): 6 Groomin Oral Hygiene (QC): 6 Bathing(FIM): 5 Shower/Bathe Self (QC): 4 Upper Body Dressing(FIM): 6 Upper Body Dressing (QC): 6 Lower Body Dressing(FIM): 5 Lower Body Dressing (QC): 4 On/Off Footwear (QC): 5 Toileting(FIM): 5 Toileting Hygiene (QC): 4 Toilet/Commode Transfer(FIM): 5 Toilet/Commode Transfer (QC): 4 Shower Transfer(FIM): 4 Additional Goals: 1-Demonstrate ADL Tasks, 2-Verbalize Understanding, 3- ImproveStrength/Mahad 1=Demonstrate adherence to instructed precautions during ADL tasks. 2=Patient will verbalize/demonstrate understanding of assistive devices/ modifications for ADL. 3=Patient will improve strength/tolerance for activity to enable patient to perform ADL's. OT Education/Plan Problem List/Assessment Pt demonstrates decreased mobility, strength, activity tolerance, and ADL performance. Pt to benefit from skilled OT intervention for ADL training, transfers, strengthening, adaptive equipment training as needed, and home safety education to maximize level of function and allow safe discharge. Discharge Recommendations Plan/Recommendations: Continue POC Treatment Plan/Plan of Care Patient would benefit from OT for education, treatment and training to promote independence in ADL's, mobility, safety and/or upper extremity function for ADL' s. Plan of Care: ADL Retraining, Functional Mobility, Group Exercise/Act as Ind, UE Funct Exercise/Act Treatment Duration: Mar 31, 2016 Visits Per Week: 10-11 Minutes/Day (M-F): 60-90 Minutes/Day (Sat/[place]): PRN Agreement: Yes Rehab Potential: Fair Time/GCodes Start Time: 08:15 Stop Time: 09:15 Total Time Billed (hr/min): 60 Billed Treatment Time 1 visit, FA(15minutes), EXx3(45minutes) OLIVIA NELSON OT Apr 05, 2016 09:25
--- NOTE | 2016-04-05 10:47 | Physical Therapy Daily Note ---
PT Daily Note-Current Subjective Patient in wheelchair at beside waiting for PT, pleasant and cooperative. No complaints of pain. Appearance Patient in wheelchair at bedside post tx, has nurse call, phone, tray, all needs met. Mental Status Patient Orientation: Normal For Age Transfers Functional [place] Measure 0=Not Assessed/NA 4=Minimal Assistance 1=Total Assistance 5=Supervision or Setup 2=Maximal Assistance 6=Modified [place] 3=Moderate Assistance 7=Complete IndependenceIRFPAI Quality Coding Scale 6 Independent with activity with or without an assistive device 5 Patient requires set up or clean up by helper. Patient completes activity by themselves 4 Supervision or touching assist (CGA). [place] provide cues , steadying assist 3 The helper provides less than half the effort to complete the activity 2 The helper provides more than half the effort to complete the activity 1 Dependent. The helper does all the effort to complete an activity 7 Patient refused to complete or attempt activity 9 The patient did not perform the activity before the current illness or injury 88 Not attempted due to Medical conditions or safety concerns Transfers (B, C, W/C) (FIM): 5 Sit to/from Stand: 5 Bed to/from Chair: 5 Patient needs close supervision and cues to get her legs against the surface she will be sitting on. Gait Training Gait (FIM): 1 Distance: 20'x3 Gait Level of Assist: 4 (CGA) Gait Persons Needed: 1 Gait Assistive Device: FWW CGA with rolling walker, fatigues quickly Wheelchair Training Wheelchair (FIM): 6 Distance: 150' Type of Wheelchair: Manual Slow, has some difficulty turning but is always able to do it herself. Stair Training Patient wanted to try to go up one step, she got into position and attempted but was not able to hop up. Exercises LAQ right side for 5 min with 2# ankle weight NuStep Minutes: 15 NuStep Workload: 4 Treatments transfers, ambulation, wheelchair mobility, functional strengthening Assessment Current Status: Fair Progress Patient attempted to go up a step but is not able to hop at this time. PT Short Term Goals Short Term Goals Time Frame: Mar 17, 2016 Gait (FIM): 1 Gait Distance Comment: 10' Gait Level of Assist: 4 Gait Assistive Device: FWW Wheelchair Distance: 150' PT Halfway Goals Stopper Maker Helper Goals PT Halfway Goals Time Frame: Mar 31, 2016 Transfers (B,C,W/C) (FIM): 5 Sit to Lying (QC): 4 Lying-Sitting on Side/Bed(QC): 4 Sit to Stand (QC): 4 Rollin Roll Left to Right (QC): 4 Chair/Eju-tg-Qgvky Xfer(QC): 4 Car Transfer (QC): 4 Gait (FIM): 1 Distance: 20' Walk 10 feet (QC): 4 Walk 10ft-Uneven Surface(QC): 4 Walk 50ft with 2 Turns (QC): 88 Walk 150 ft (QC): 88 Gait Level of Assist: 5 Gait Assistive Device: FWW Wheelchair (FIM): 6 Distance: 150' Wheelchair Level of Assist: 6 Wheel 50 feet with 2 turns (QC: 6 Stairs (FIM): 2 # of Steps: 4 1 Step (curb) (QC): 4 4 Steps (QC): 4 12 Steps (QC): 88 Stairs Level Of Assist: 4 Picking up an Object (QC): 88 PT Plan Problem List Problem List: Activity Tolerance, Functional Strength, Safety, Balance, Gait, Transfer, Bed Mobility, ROM Treatment/Plan Treatment Plan: Continue Plan of Care Treatment Plan: Bed Mobility, Education, Functional Activity Mahad, Functional Strength, Group Therapy, Gait, Safety, Therapeutic Exercise, Transfers Treatment Duration: Mar 31, 2016 Visits Per Week: 10-11 Minutes/Day (M-F): 60-90 Minutes/Day (Sat/[place]ola): 15-30 Safety Risks/Education Patient Education: Gait Training, Transfer Techniques, Steps, W/C Management, Safety Issues Teaching Recipient: Patient Teaching Methods: Demonstration, Discussion Response to Teaching: Reinforcement Needed Time/GCodes Time In: 945 Time Out: 1045 Total Billed Treatment Time: 60 Total Billed Treatment 1 visit EX 20 min WCH 15 min GT 25 min GEM DANIELSON PT Apr 05, 2016 10:47
--- NOTE | 2016-04-05 10:51 | PM & R (SOAP) Progress Note ---
Subjective Subjective/Events-last exam Patient was seen in her rom this AM Discussed case with ESTELLA [facility] for DME W/C and Walker provided in anticipation of discharge to home end of this week or early next week Patient SBA for transfers Objective Exam Last Set of Vital Signs Vital Signs Date Time Temp Pulse Resp B/P Pulse Ox O2 Delivery O2 Flow Rate FiO2 04/05/16 08:15 Room Air 04/05/16 05:18 97.8 90 16 127/84 100 Capillary Refill : Less Than 3 Seconds I&O Intake and Output 04/05/16 00:00 Intake Total 2075 ml Balance 2075 ml Intake Oral 2075 ml # Voids 8 # Bowel Movements 1 General: Alert, No Acute Distress HEENT: Atraumatic Neck: Supple, No JVD, No Thyromegaly Lungs: Normal Air Movement Heart: Regular Rate, Normal S1, Normal S2, No Murmurs Abdomen: Normal Bowel Sounds, Soft, No Tenderness Extremities: Other (The patient has been noted to have an ulcer of the R foot which is under the care of Dr. Mas.) Skin: No Rashes, Other (Sacral wounds are essentially healed. L knee wound unchanged.) Neuro: Normal Speech, Strength at 5/5 X4 Ext, Other (mild weakness RLE) Psych/Mental Status: Mental Status NL Results Lab Laboratory Tests 04/02/16 11:09: Glucometer 164H 04/02/16 15:46: Glucometer 184H 04/02/16 21:19: Glucometer 201H 04/03/16 04:56: Glucometer 134H 04/03/16 11:27: Glucometer 224H 04/03/16 16:05: Glucometer 224H 04/03/16 21:41: Glucometer 178H 04/04/16 05:27: Glucometer 179H 04/04/16 05:35: Anion Gap 10, BUN/Creatinine Ratio 19, Blood Urea Nitrogen 25H, Calcium Level 8.5, Carbon Dioxide Level 18L, Chloride Level 109H, Creatinine 1.33H, Estimat Glomerular Filtration Rate 41, Glucose Level 198H, Potassium Level 3.7, Sodium Level 137 04/04/16 11:21: Glucometer 158H 04/04/16 16:02: Glucometer 204H 04/04/16 22:04: Glucometer 237H 04/05/16 05:04: Glucometer 150H Microbiology 1/18/17 C. difficile GDH Antigen & Toxins - Final, Complete 03/28/16 Urine Culture - Final, Complete Assessment/Plan Assessment Left BKA 02-01-16 OSH for gangrenous left foot Postop C DIF bowel colitis associated with sepsis treated at OSH-now on Vanco for ongoing treatment-improved Mild Hypokalemia Mild postop Anemia IDDM controlled HTN with hx of afib now sinus with hypotension depression on meds Tobaccoism declines Smoking cessation Trace edema rt ankle Uncertain if patient would tolerate Freddy hose-Lasix prn ordered-one dose ordered with improvement-resolved UTI with fever now afebrile on Vanco Check sensitivity-done Controlled descent to floor 03-24-16 Onychomycosis of toenails Peripheral Vasc d with claudcation complaints RLE- s/pcath revealing stenosis rt Popliteal artery awaiting possible stent which may be done as an outpatient- Will f/u with SW/ Cardiology re details of plan Plan Continue PT/OT DR Barrios to see re cardiac meds with echo ordered-done appreciate his consult and f/u-awaiting f/u labs to clear for stent placement [id number] awaiting stent availability-may be done as outpatient recheck labs-done Lasix times one done-edema improved Completed course of Flagyl for Cdif now on course of Vanco with meds adjusted to promote formed st F/U re sensitivity of Gram Negative rods.-done-now repeat pending Apprediate DR sharp notes and orders Podiatry consult for diabetic foot care-done SW contacted me last week re letter to support additional financial assistance from [place] so that she may have a home to go to -signed Recheck with patient re resolution of neck pain-improved F/U with Dr Christina and Sophie re further eval and treatment of Periheral Vasc D. RLE-done Next Team Conference tomorrow 04/06/16 F/U with SW re Possible discharge by end of week or janessa next week RX for DME provide as per above IRMA ESPINOZA MD Apr 05, 2016 10:51
--- NOTE | 2016-04-05 14:31 | Therapy Group Daily Note ---
Therapy Daily Group Note Other/Notes Each patient on rehab had group therapy this afternoon in the common area on the rehab floor. Each patient was either wheeled or ambulated to the common area and seated in a line. Then each patient had to introduce themselves and state where they were from and recall a specific memory from their past. Then, they were educated on specifics about rehab like minutes required and each disciplines role. Each patient was then educated about handwashing and they each had to wash their hands at the sink (standing if they could) in preparation for the next activity. Finally they had to decorate and assemble a [employer] project, an activity that required digital manipulation, UE ROM, problem solving, and critical thinking. Each patient was then transported back to their room by wheelchair or ambulation and back to bed or chair with nurse call, phone, and tray. Start Time: 13:00 Stop Time: 14:10 Total Billed Treatment Time: 70 Total Billed Treatment 1 visit GRP 70 min GEM DANIELSON PT Apr 05, 2016 14:31
--- NOTE | 2016-04-05 15:16 | Cardiology Progress Note ---
Subjective Subjective/Events-last exam patient is laying down in bed, denied any chest pain, no shortness of breath, stump is healing well. Review of Systems General: No Chills, No Night Sweats, No Fatigue, No Malaise, No Appetite, No Other HEENT: No Head Aches, No Visual Changes, No Eye Pain, No Ear Pain, No Dysphasia , No Sinus Congestion, No Post Nasal Drip, No Sore Throat, No Other Pulmonary: No Dyspnea, No Cough, No Pleuritic Chest Pain, No Other Cardiovascular: No: Chest Pain, Edema, Lt Headedness, Orthopnea, Other, Palpitations, Paroxysmal Noc. Dyspnea Objective-Cardiology Exam Last Set of Vital Signs Vital Signs 04/05/16 04/05/16 05:18 08:15 Temp 97.8 Pulse 90 Resp 16 B/P 127/84 Pulse Ox 100 O2 Delivery Room Air Capillary Refill : Less Than 3 Seconds I&O Intake and Output 04/05/16 00:00 Intake Total 2075 ml Balance 2075 ml Intake Oral 2075 ml # Voids 8 # Bowel Movements 1 General: Alert, Oriented X3, Cooperative, No Acute Distress HEENT: Atraumatic, PERRLA Neck: Supple, No JVD, No Thyromegaly Lungs: Clear to Auscultation, Normal Air Movement Heart: Regular Rate, Normal S1, Normal S2, No Murmurs Abdomen: Normal Bowel Sounds, Soft, No Tenderness Extremities: Other (The patient has been noted to have an ulcer of the R foot which is under the care of Dr. Mas.) Skin: No Rashes, Other (Sacral wounds are essentially healed. L knee wound unchanged.) Neuro: Normal Speech, Strength at 5/5 X4 Ext, Other (mild weakness RLE) Psych/Mental Status: Mental Status NL Results Lab Laboratory Tests Test 04/04/16 16:02 04/04/16 22:04 04/05/16 05:04 04/05/16 10:58 Range/Units Glucometer 204 H 237 H 150 H 193 H 70-110 MG/DL A/P-Cardiology Admission Diagnosis Hypotension Paroxysmal atrial fibrillation Hyperlipidemia Peripheral arterial disease Diabetes mellitus Assessment/Plan Right leg swelling, extensive peripheral arterial disease, angiogram showed severe disease at multiple segment at the left SFA which will cause slow healing of her stump, right lower extremity has severe popliteal artery stenosis , anterior tibial artery has severe stenosis, tibial peroneal trunk has severe stenosis which will require balloon angioplasty and possibly drug-coated balloon which will be staged at a later point. Continue with medical therapy for now Chronic renal insufficiency, continue to monitor renal function, hydrate, total contrast used during procedure was 38 milliliters of contrast, slightly worse today, educated on increasing oral intake, evaluate metabolic profile in the morning Paroxysmal atrial fibrillation, reporting episode of atrial fibrillation during her hospital stay in January at [facility]. She is not on oral anticoagulation, no signs of bleeding. Probably transient episode of atrial fibrillation. She denied any previous history prior to her surgery. No syncope was reported. Currently in sinus rhythm. Continue to monitor C. difficile colitis, improved, off isolation at this time. 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 Anemia, monitor H&H Hyperlipidemia, maintained on Lipitor. Monitor lipids Diabetes mellitus, followed and managed by primary care physician Tobaccoism, educated in length on smoking cessation Depression, anxiety. Managed by primary care physician Debility, receiving physical therapy Clinical Quality Measures DVT/VTE Risk/Contraindication: Risk Factor Score Per Nursin RFS Level Per Nursing on Admit: 4+=Very High MILADY SHANNON MD Apr 05, 2016 15:16
[2016-04-05 18:00] VITALS: BP 109/66
[2016-04-05] MEDS: ATORVASTATIN 40 MG (LIPITOR) TABLET PO SCH (20:10)
[2016-04-05] MEDS: ENOXAPARIN 40 MG/0.4 ML (LOVENOX) SYR SC SCH (20:10)
[2016-04-05] MEDS: inSUlin DETERMIR 1 UNIT/0.01 ML (LEVEMIR) CHARGE PER UNIT SQ SCH (20:10)
[2016-04-05] MEDS: ALPRAZolam 0.5 MG (XANAX) TAB PO PRN (20:11)
[2016-04-06] MEDS: inSUlin (REGULAR) HUMAN 1 UNIT/0.01 ML (CHARGE PER UNIT) SC SCH ×4 (05:05→21:53)
[2016-04-06 05:50] VITALS: BP 109/71
[2016-04-06 07:18] LABS: CALCIUM 8.8 MG/DL (8.5-10.1); CREATININE SERUM 1.23 MG/DL (0.60-1.30); POTASSIUM 3.7 MMOL/L (3.6-5.0)
[2016-04-06] MEDS: DULoxetine 30 MG (CYMBALTA) CAP PO SCH (08:15)
[2016-04-06] MEDS: ASPIRIN E.C. 81 MG (ECOTRIN) TAB PO SCH (08:15)
[2016-04-06] MEDS: CLOPIDOGREL 75 MG (PLAVIX) TABLET PO SCH (08:15)
[2016-04-06] MEDS: GABAPENTIN 600 MG (NEURONTIN) TAB PO SCH ×3 (08:15→20:21)
[2016-04-06] MEDS: DILTIAZEM 120 MG (CARDIZEM CD) CAP PO SCH (08:15)
[2016-04-06] MEDS: SILVER SULFADIAZINE 50 GM CREAM TOP SCH (08:16)
[2016-04-06] MEDS: ZINC OXIDE 16% OINT (BUTT PASTE) 113 GM TUBE TOP PRN (08:17)
[2016-04-06] MEDS: MUPIROCIN 2% OINT 22 GM (BACTROBAN) TUBE TOP SCH ×2 (08:19→20:22)
--- NOTE | 2016-04-06 08:42 | Progress Note (SOAP) ---
Subjective Subjective/Events-last exam patient toes but is better. Patient Kocsis is better. Patient feels she is doing more. Objective Exam Vital Signs Date Time Temp Pulse Resp B/P Pulse Ox O2 Delivery O2 Flow Rate FiO2 04/06/16 05:50 96.9 93 18 109/71 99 Room Air 04/05/16 18:00 99.3 110 20 109/66 99 Room Air I & O 04/06/16 07:00 Intake Total 1822 ml Balance 1822 ml Capillary Refill : Less Than 3 Seconds General Appearance: No Apparent Distress WD/WN Results Lab Laboratory Tests 04/05/16 10:58: Glucometer 193H 04/05/16 15:43: Glucometer 202H 04/05/16 21:29: Glucometer 207H 04/06/16 04:44: Glucometer 229H 04/06/16 06:19: Anion Gap 8, BUN/Creatinine Ratio 19, Blood Urea Nitrogen 23H, Calcium Level 8.8 , Carbon Dioxide Level 20L, Chloride Level 107, Creatinine 1.23, Estimat Glomerular Filtration Rate 45, Glucose Level 210H, Potassium Level 3.7, Sodium Level 135 Microbiology 03/09/16 C. difficile GDH Antigen & Toxins - Final, Complete 03/28/16 Urine Culture - Final, Complete Assessment/Plan Assessment/Plan Assess & Plan/Chief Complaint left below the knee amputation. Diabetes. Peripheral vascular disease. Depression history. Hypertension history. . 03/11/16 left below knee amputation. Diabetes. Peripheral vascular disease. History of hypertension. C. difficile. Hypotensive. Health lisinopril. . Left knee below amputation. Diabetes. Peripheral vascular disease. History of atrial fibrillation. Patient in sinus rhythm. Hypotension. C. difficile. Diarrhea improving. . 03/15/16. Left below the knee amputation. Diabetes. Peripheral vascular disease. Depression history. Atrial fib. Blood pressure goodt and heart rate within normal limits. . 03/16/16. Left below the knee amputation. Peripheral vascular disease. Diabetes. C. difficile. History of atrial fibrillation. Diarrhea better. Potassium 3.3 Will replace. Patient has renal insufficiency. . 03/17/16. Left below the knee amputation. Diabetes. Peripheral vascular disease. Depression history. Patient doing better. Patient happy. Patient improving. . 03/18/16. Left below the knee amputation. Diabetes. 4 vascular disease. Depression history. UA shows infection. C. difficile. To put on antibiotics only for 2 days when get sensitivity. . 03/21/16. Left below the knee amputation. C. difficile. Stools are better. Diabetes. Peripheral vascular disease. To check UA tomorrow. . 02/3116. Left below the knee amputation. Diabetes. Peripheral vascular disease. Hypertension history. Patient doing better and happy. infection nitrate negative now done today. . 03/23/16. infection with different organism now. Waiting for sensitivity. Patient doing much better. Patient positive. Patient hopping 6 steps. Wound is healing. Patient in the right direction . 03/24/16. Left below the knee amputation. Diabetes. Peripheral vascular disease. Depression. Patient doing better. Patient improving. . 03/25/16 area Left below the knee amputation. Diabetes. Peripheral vascular disease. Depression. Patient is improving and feeling better about herself. . 03/28/16. Left below the knee amputation. Diabetes under better control. Peripheral vascular disease. infection to check urine today. Depression history. Hypertension. . 03/29/16. Patient worried about toe. Toe has some redness to it. To do arterial Doppler . Patient Transport Orderly to get involved again. To start on antibiotics. Patient not to smoke. Left below the knee amputation. Diabetes. Peripheral vascular disease. Depression. . . Left knee below amputation. Diabetes. Peripheral vascular disease. Depression. Hypertension. . 03/31/16. Kidney function better. Patient have procedure done today. Left below the knee amputation. Diabetes okay. Peripheral vascular disease. Hypertension history. . 04/01/16. Kidney function good. Patient has peripheral vascular disease. Left knee amputation. Peripheral vascular disease. Diabetes under control. Hypertension history. . 04/04/16. Left below the knee amputation. Diabetes. Peripheral vascular disease. Patient feel she is doing better. Occupational and physical therapy feels patient is improving. . 04/05/16. Left below the knee amputation. Diabetes. Peripheral vascular disease. [place] better. Back better. . 02/03/17. Left below the knee amputation. Diabetes. Peripheral vascular disease. Depression history. Hypertension history patient improving Diagnosis/Problems: Clinical Quality Measures DVT/VTE Risk/Contraindication: Risk Factor Score Per Nursin RFS Level Per Nursing on Admit: 4+=Very High URSULA RENEE DO Apr 06, 2016 08:42
--- NOTE | 2016-04-06 10:10 | Occupational Ther Daily Note ---
OT Current Status-Daily Note Subjective Pt in bed, agrees to treatment. Mental Status/Objective Functional [place] Measure 0=Not Assessed/NA 4=Minimal Assistance 1=Total Assistance 5=Supervision or Setup 2=Maximal Assistance 6=Modified [place] 3=Moderate Assistance 7=Complete [place] ADL-Treatment Supine to sit with modified independence. Transfer EOB to [facility] with close supervision using FWW. Pt able to perform hygiene without assistance and manage clothing with CGA. Transfer to w/c with supervision. Pt completed grooming tasks , including oral care, with modified independence while seated at sink. Pt requests shower this am. Retrieved clothing from closet without assistance while at w/c level. Transfer w/c <-> shower chair with CGA using grab bars for safety. Seated bathing completed using hand held shower. Pt able to bathe/dry all areas with set up. Don bra and pullover shirt with modified independence. Pt donned underwear and pants with CGA for balance during standing for pant hike. RN present to apply dressing to right third toe. Don right sock without assistance. Pt sitting up in w/c with needs met after session. Functional [place] Measure 0=Not Assessed/NA 4=Minimal Assistance 1=Total Assistance 5=Supervision or Setup 2=Maximal Assistance 6=Modified [place] 3=Moderate Assistance 7=Complete IndependenceIRFPAI Quality Coding Scale 6 Independent with activity with or without an assistive device 5 Patient requires set up or clean up by helper. Patient completes activity by themselves 4 Supervision or touching assist (CGA). [place] provide cues , steadying assist 3 The helper provides less than half the effort to complete the activity 2 The helper provides more than half the effort to complete the activity 1 Dependent. The helper does all the effort to complete an activity 7 Patient refused to complete or attempt activity 9 The patient did not perform the activity before the current illness or injury 88 Not attempted due to Medical conditions or safety concerns Grooming (FIM): 6 Oral Hygiene (QC): 6 Toileting Hygiene (QC): 4 (CGA) Bathing (FIM): 5 Shower/Bathe Self (QC): 5 Upper Body (FIM): 6 Upper Body Dressing (QC): 6 Lower Body Dressing (FIM): 4 (CGA) Lower Body Dressing (QC): 4 (CGA) On/Off Footwear (QC): 5 Toileting (FIM): 4 (CGA) Toilet/Commode Transfer (FIM): 5 Toilet Transfer (QC): 5 (SBA) Shower Transfer(FIM): 4 OT Short Term Goals Short Term Goals Time Frame: Mar 17, 2016 Bathing(FIM): 4 Lower Body Dressing(FIM): 3 Toileting(FIM): 3 Toilet/Commode Transfer(FIM): 4 Shower Transfer(FIM): 3 Additional Short Term Goals: 1-Demonstrate ADL Tasks, 2-Verbalize Understanding , 3-ImproveStrength/Mahad 1=Demonstrate adherence to instructed precautions during ADL tasks. 2=Patient will verbalize/demonstrate understanding of assistive devices/ modifications for ADL. 3=Patient will improve strength/tolerance for activity to enable patient to perform ADL's. OT Chair Springer Goals Retirement Goals Time Frame: Mar 31, 2016 Eating (FIM): 6 Eating (QC): 6 Groomin Oral Hygiene (QC): 6 Bathing(FIM): 5 Shower/Bathe Self (QC): 4 Upper Body Dressing(FIM): 6 Upper Body Dressing (QC): 6 Lower Body Dressing(FIM): 5 Lower Body Dressing (QC): 4 On/Off Footwear (QC): 5 Toileting(FIM): 5 Toileting Hygiene (QC): 4 Toilet/Commode Transfer(FIM): 5 Toilet/Commode Transfer (QC): 4 Shower Transfer(FIM): 4 Additional Goals: 1-Demonstrate ADL Tasks, 2-Verbalize Understanding, 3- ImproveStrength/Mahad 1=Demonstrate adherence to instructed precautions during ADL tasks. 2=Patient will verbalize/demonstrate understanding of assistive devices/ modifications for ADL. 3=Patient will improve strength/tolerance for activity to enable patient to perform ADL's. OT Education/Plan Problem List/Assessment Pt demonstrates decreased mobility, strength, activity tolerance, and ADL performance. Pt to benefit from skilled OT intervention for ADL training, transfers, strengthening, adaptive equipment training as needed, and home safety education to maximize level of function and allow safe discharge. Discharge Recommendations Plan/Recommendations: Continue POC Treatment Plan/Plan of Care Patient would benefit from OT for education, treatment and training to promote independence in ADL's, mobility, safety and/or upper extremity function for ADL' s. Plan of Care: ADL Retraining, Functional Mobility, Group Exercise/Act as Ind, UE Funct Exercise/Act Treatment Duration: Mar 31, 2016 Visits Per Week: 10-11 Minutes/Day (M-F): 60-90 Minutes/Day (Sat/[place]ola): PRN Agreement: Yes Rehab Potential: Fair Time/GCodes Start Time: 08:00 Stop Time: 09:00 Total Time Billed (hr/min): 60 Billed Treatment Time 1 visit, ADLx4(60minutes) OLIVIA NELSON OT Apr 06, 2016 10:09
--- NOTE | 2016-04-06 10:18 | Cardiology Progress Note ---
Subjective Subjective/Events-last exam Patient is in chair. No new complaints. Inquiring about timing of peripheral angiogram. Denies any CP or dyspnea Review of Systems General: No Night Sweats, No Fatigue, No Malaise HEENT: No Visual Changes, No Dysphasia Pulmonary: No Dyspnea, No Cough Cardiovascular: No: Chest Pain, Palpitations Gastrointestinal: No: Abdominal Pain, Nausea, Vomiting Genitourinary: No Dysuria, No Frequency Musculoskeletal: No: back pain, neck pain Neurological: No: Change in speech, Confusion, Numbness, Weakness Objective-Cardiology Exam Last Set of Vital Signs Vital Signs 04/06/16 05:50 Temp 96.9 Pulse 93 Resp 18 B/P 109/71 Pulse Ox 99 O2 Delivery Room Air Capillary Refill : Less Than 3 Seconds I&O Intake and Output 04/06/16 00:00 Intake Total 1800 ml Balance 1800 ml Intake Oral 1800 ml # Voids 12 # Bowel Movements 2 General: Alert, Oriented X3, Cooperative, No Acute Distress HEENT: Atraumatic, PERRLA Neck: Supple, No JVD, No Thyromegaly Lungs: Clear to Auscultation, Normal Air Movement Heart: Regular Rate, Normal S1, Normal S2, No Murmurs Abdomen: Normal Bowel Sounds, Soft, No Tenderness Extremities: Other (The patient has been noted to have an ulcer of the R foot which is under the care of Dr. Mas.) Skin: No Rashes, Other (Sacral wounds are essentially healed. L knee wound unchanged.) Neuro: Normal Speech, Strength at 5/5 X4 Ext, Other (mild weakness RLE) Psych/Mental Status: Mental Status NL Results Lab Laboratory Tests 04/06/16 06:19 A/P-Cardiology Admission Diagnosis Hypotension Paroxysmal atrial fibrillation Hyperlipidemia Peripheral arterial disease Diabetes mellitus Assessment/Plan Right leg swelling, extensive peripheral arterial disease, angiogram showed severe disease at multiple segment at the left SFA which will cause slow healing of her stump, right lower extremity has severe popliteal artery stenosis , anterior tibial artery has severe stenosis, tibial peroneal trunk has severe stenosis which will require balloon angioplasty and possibly drug-coated balloon which will be staged at a later point. Continue with medical therapy for now Chronic renal insufficiency, continue to monitor renal function Paroxysmal atrial fibrillation, reporting episode of atrial fibrillation during her hospital stay in January at [facility]. She is not on oral anticoagulation, no signs of bleeding. Probably transient episode of atrial fibrillation. She denied any previous history prior to her surgery. No syncope was reported. Currently in sinus rhythm. Continue to monitor C. difficile colitis, improved, off isolation at this time. 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 Anemia, monitor H&H Hyperlipidemia, maintained on Lipitor. Monitor lipids Diabetes mellitus, followed and managed by primary care physician Tobaccoism, educated in length on smoking cessation Depression, anxiety. Managed by primary care physician Debility, receiving physical therapy Clinical Quality Measures DVT/VTE Risk/Contraindication: Risk Factor Score Per Nursin RFS Level Per Nursing on Admit: 4+=Very High LINH WALLACE Apr 06, 2016 10:18
--- NOTE | 2016-04-06 10:57 | Physical Therapy Daily Note ---
PT Daily Note-Current Subjective Patient in wheelchair at bedside pre tx, agrees to PT, no complaints of pain. Pain Numeric Pain Scale: 0-No Pain Appearance Patient in wheelchair post tx, can propel it back to her room. Mental Status Patient Orientation: Normal For Age Transfers Functional [place] Measure 0=Not Assessed/NA 4=Minimal Assistance 1=Total Assistance 5=Supervision or Setup 2=Maximal Assistance 6=Modified [place] 3=Moderate Assistance 7=Complete IndependenceIRFPAI Quality Coding Scale 6 Independent with activity with or without an assistive device 5 Patient requires set up or clean up by helper. Patient completes activity by themselves 4 Supervision or touching assist (CGA). [place] provide cues , steadying assist 3 The helper provides less than half the effort to complete the activity 2 The helper provides more than half the effort to complete the activity 1 Dependent. The helper does all the effort to complete an activity 7 Patient refused to complete or attempt activity 9 The patient did not perform the activity before the current illness or injury 88 Not attempted due to Medical conditions or safety concerns Transfers (B, C, W/C) (FIM): 5 Scootin Rollin Supine to/from Sit: 5 Sit to/from Stand: 5 Bed to/from Chair: 5 stand pivot using a rolling walker Gait Training Gait (FIM): 1 Distance: 25'x3 Gait Level of Assist: 4 (CGA) Gait Persons Needed: 1 Gait Assistive Device: FWW Wheelchair Training Does the Pt Use a Wheelchair?: Yes Wheelchair (FIM): 6 Distance: 150'x2 Type of Wheelchair: Manual Exercises prone hip flexor stretch 5 min, left hip flex/abd and quad set x 20, bridging x 20, glut set x 20, LAQ right side with 2# ankle weight for 5 min, sit to stand x10 Treatments bed mobility and transfers, ambulation, functional strengthening, wheelchair mobility Assessment Current Status: Fair Progress improving strength and endurance PT Short Term Goals Short Term Goals Time Frame: Mar 17, 2016 Gait (FIM): 1 Gait Distance Comment: 10' Gait Level of Assist: 4 Gait Assistive Device: FWW Wheelchair Distance: 150' PT Systems Checkout Mechanic Goals [facility] Goals PT Systems Checkout Mechanic Goals Time Frame: Mar 31, 2016 Transfers (B,C,W/C) (FIM): 5 Sit to Lying (QC): 4 Lying-Sitting on Side/Bed(QC): 4 Sit to Stand (QC): 4 Rollin Roll Left to Right (QC): 4 Chair/Sis-rc-Iwpyf Xfer(QC): 4 Car Transfer (QC): 4 Gait (FIM): 1 Distance: 20' Walk 10 feet (QC): 4 Walk 10ft-Uneven Surface(QC): 4 Walk 50ft with 2 Turns (QC): 88 Walk 150 ft (QC): 88 Gait Level of Assist: 5 Gait Assistive Device: FWW Wheelchair (FIM): 6 Distance: 150' Wheelchair Level of Assist: 6 Wheel 50 feet with 2 turns (QC: 6 Stairs (FIM): 2 # of Steps: 4 1 Step (curb) (QC): 4 4 Steps (QC): 4 12 Steps (QC): 88 Stairs Level Of Assist: 4 Picking up an Object (QC): 88 PT Plan Problem List Problem List: Activity Tolerance, Functional Strength, Safety, Balance, Gait, Transfer, Bed Mobility, ROM Treatment/Plan Treatment Plan: Continue Plan of Care Treatment Plan: Bed Mobility, Education, Functional Activity Mahad, Functional Strength, Group Therapy, Gait, Safety, Therapeutic Exercise, Transfers Treatment Duration: Mar 31, 2016 Visits Per Week: 10-11 Minutes/Day (M-F): 60-90 Minutes/Day (Sat/[place]): 15-30 Safety Risks/Education Patient Education: Gait Training, Transfer Techniques, W/C Management, Safety Issues Teaching Recipient: Patient Teaching Methods: Demonstration, Discussion Response to Teaching: Reinforcement Needed Time/GCodes Time In: 1000 Time Out: 1100 Total Billed Treatment Time: 60 Total Billed Treatment 1 visit GT 30 min EX 30 min GEM DANIELSON PT Apr 06, 2016 10:56
--- NOTE | 2016-04-06 15:19 | Therapy Group Daily Note ---
Therapy Daily Group Note Patient Education Topic Other List Below (Frailty Syndrome and prevention) Exercises LE Seated Exercise, UE Exercise Other/Notes Pt maneuvered w/c to [facility] for group. Pt actively participated in OT /PT group. Group consisted of introductions (name, place living, place you'd rather be instead of here), socialization, education on Frailty Syndrome and prevention, UE/LE seated exercises with resistance and other benefits of exercise. Pt contributed to discussions appropriately and demonstrated knowledge of topic by answering verbal questions. Pt was able to complete UE/ LE seated exercises. Pt maneuvered w/c back to room by self. After therapy, pt sitting in w/c in room with call light/phone in reach. All needs met. Start Time: 13:00 Stop Time: 14:10 Total Billed Treatment Time: 70 Total Billed Treatment 1-GRP ANA HWANG Apr 06, 2016 15:19
--- NOTE | 2016-04-06 15:44 | Cardiology Progress Note ---
Subjective Subjective/Events-last exam patient is laying down in bed, sitting in a chair. No new complaint, concern about going home without having an intervention on her right leg. I reassured her at this time. There is no urgency for the intervention of the right leg Review of Systems General: No Chills, No Night Sweats, No Fatigue, No Malaise, No Appetite, No Other HEENT: No Head Aches, No Visual Changes, No Eye Pain, No Ear Pain, No Dysphasia , No Sinus Congestion, No Post Nasal Drip, No Sore Throat, No Other Pulmonary: No Dyspnea, No Cough, No Pleuritic Chest Pain, No Other Cardiovascular: No: Chest Pain, Edema, Lt Headedness, Orthopnea, Other, Palpitations, Paroxysmal Noc. Dyspnea Objective-Cardiology Exam Last Set of Vital Signs Vital Signs 04/06/16 05:50 Temp 96.9 Pulse 93 Resp 18 B/P 109/71 Pulse Ox 99 O2 Delivery Room Air Capillary Refill : Less Than 3 Seconds I&O Intake and Output 04/06/16 00:00 Intake Total 1800 ml Balance 1800 ml Intake Oral 1800 ml # Voids 12 # Bowel Movements 2 General: Alert, Oriented X3, Cooperative, No Acute Distress HEENT: Atraumatic, PERRLA Neck: Supple, No JVD, No Thyromegaly Lungs: Clear to Auscultation, Normal Air Movement Heart: Regular Rate, Normal S1, Normal S2, No Murmurs Abdomen: Normal Bowel Sounds, Soft, No Tenderness Extremities: Other (The patient has been noted to have an ulcer of the R foot which is under the care of Dr. Mas.) Skin: No Rashes, Other (Sacral wounds are essentially healed. L knee wound unchanged.) Neuro: Normal Speech, Strength at 5/5 X4 Ext, Other (mild weakness RLE) Psych/Mental Status: Mental Status NL Results Lab Laboratory Tests 04/06/16 06:19 A/P-Cardiology Admission Diagnosis Hypotension Paroxysmal atrial fibrillation Hyperlipidemia Peripheral arterial disease Diabetes mellitus Assessment/Plan Right leg swelling, extensive peripheral arterial disease, angiogram showed severe disease at multiple segment at the left SFA which will cause slow healing of her stump, right lower extremity has severe popliteal artery stenosis , anterior tibial artery has severe stenosis, tibial peroneal trunk has severe stenosis which will require balloon angioplasty and possibly drug-coated balloon which will be staged at a later point. Continue with medical therapy for now Chronic renal insufficiency, continue to monitor renal function Paroxysmal atrial fibrillation, reporting episode of atrial fibrillation during her hospital stay in January at [facility]. She is not on oral anticoagulation, no signs of bleeding. Probably transient episode of atrial fibrillation. She denied any previous history prior to her surgery. No syncope was reported. Currently in sinus rhythm. Continue to monitor C. difficile colitis, improved, off isolation at this time. 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 Anemia, monitor H&H Hyperlipidemia, maintained on Lipitor. Monitor lipids Diabetes mellitus, followed and managed by primary care physician Tobaccoism, educated in length on smoking cessation Depression, anxiety. Managed by primary care physician Debility, receiving physical therapy Clinical Quality Measures DVT/VTE Risk/Contraindication: Risk Factor Score Per Nursin RFS Level Per Nursing on Admit: 4+=Very High MILADY SHANNON MD Apr 06, 2016 15:44
[2016-04-06 17:17] VITALS: BP 130/81
[2016-04-06] MEDS: oxyCODONE/APAP 5/325MG (PERCOCET 5) TABLET PO PRN (17:29)
--- NOTE | 2016-04-06 19:48 | PM & R (SOAP) Progress Note ---
Subjective Subjective/Events-last exam Patient was seen in her room this AM Patient SBA for transfers Appreciate DR Perez note Objective Exam Last Set of Vital Signs Vital Signs Date Time Temp Pulse Resp B/P Pulse Ox O2 Delivery O2 Flow Rate FiO2 04/06/16 17:17 97.9 94 20 130/81 100 Room Air Capillary Refill : Less Than 3 Seconds I&O Intake and Output 04/06/16 00:00 Intake Total 1800 ml Balance 1800 ml Intake Oral 1800 ml # Voids 12 # Bowel Movements 2 General: Alert, Oriented X3, Cooperative, No Acute Distress HEENT: Atraumatic, PERRLA Neck: Supple, No JVD, No Thyromegaly Lungs: Clear to Auscultation, Normal Air Movement Heart: Regular Rate, Normal S1, Normal S2, No Murmurs Abdomen: Normal Bowel Sounds, Soft, No Tenderness Extremities: Other (The patient has been noted to have an ulcer of the R foot which is under the care of Dr. Mas.) Skin: No Rashes, Other (Sacral wounds are essentially healed. L knee wound unchanged.) Neuro: Normal Speech, Strength at 5/5 X4 Ext, Other (mild weakness RLE) Psych/Mental Status: Mental Status NL Results Lab Laboratory Tests 04/03/16 21:41: Glucometer 178H 04/04/16 05:27: Glucometer 179H 04/04/16 05:35: Anion Gap 10, BUN/Creatinine Ratio 19, Blood Urea Nitrogen 25H, Calcium Level 8.5, Carbon Dioxide Level 18L, Chloride Level 109H, Creatinine 1.33H, Estimat Glomerular Filtration Rate 41, Glucose Level 198H, Potassium Level 3.7, Sodium Level 137 04/04/16 11:21: Glucometer 158H 04/04/16 16:02: Glucometer 204H 04/04/16 22:04: Glucometer 237H 04/05/16 05:04: Glucometer 150H 04/05/16 10:58: Glucometer 193H 04/05/16 15:43: Glucometer 202H 04/05/16 21:29: Glucometer 207H 04/06/16 04:44: Glucometer 229H 04/06/16 06:19: Anion Gap 8, BUN/Creatinine Ratio 19, Blood Urea Nitrogen 23H, Calcium Level 8.8 , Carbon Dioxide Level 20L, Chloride Level 107, Creatinine 1.23, Estimat Glomerular Filtration Rate 45, Glucose Level 210H, Potassium Level 3.7, Sodium Level 135 04/06/16 11:10: Glucometer 215H 04/06/16 16:00: Glucometer 204H Microbiology 03/09/16 C. difficile GDH Antigen & Toxins - Final, Complete 03/28/16 Urine Culture - Final, Complete Assessment/Plan Assessment Left BKA 02-01-16 OSH for gangrenous left foot Postop C DIF bowel colitis associated with sepsis treated at OSH-now on Vanco for ongoing treatment-improved Mild Hypokalemia Mild postop Anemia IDDM controlled HTN with hx of afib now sinus with hypotension depression on meds Tobaccoism declines Smoking cessation Trace edema rt ankle Uncertain if patient would tolerate Freddy hose-Lasix prn ordered-one dose ordered with improvement-resolved UTI with fever now afebrile on Vanco Check sensitivity-done Controlled descent to floor 03-24-16 Onychomycosis of toenails Peripheral Vasc d with claudcation complaints RLE- s/pcath revealing stenosis rt Popliteal artery awaiting possible stent which may be done as an outpatient- Will f/u with SW/ Cardiology re details of plan Plan Continue PT/OT DR Barrios to see re cardiac meds with echo ordered-done appreciate his consult and f/u-awaiting f/u labs to clear for stent placement BFA-awwi-lvi awaiting stent availability-may be done as outpatient recheck labs-done Lasix times one done-edema improved Completed course of Flagyl for Cdif now on course of Vanco with meds adjusted to promote formed st F/U re sensitivity of Gram Negative rods.-done-now repeat pending Apprediate DR sharp notes and orders Podiatry consult for diabetic foot care-done SW contacted me last week re letter to support additional financial assistance from [place] so that she may have a home to go to -signed Recheck with patient re resolution of neck pain-improved F/U with Dr Christina and Sophie re further eval and treatment of Periheral Vasc D. RLE- Team Conference hedl earlier today-See report for full functional update and POC and [facility] for DME provided as per above IRMA ESPINOZA MD Apr 06, 2016 19:48
[2016-04-06] MEDS: ENOXAPARIN 40 MG/0.4 ML (LOVENOX) SYR SC SCH (20:19)
[2016-04-06] MEDS: inSUlin DETERMIR 1 UNIT/0.01 ML (LEVEMIR) CHARGE PER UNIT SQ SCH (20:20)
[2016-04-06] MEDS: ATORVASTATIN 40 MG (LIPITOR) TABLET PO SCH (20:21)
[2016-04-06] MEDS: ALPRAZolam 0.5 MG (XANAX) TAB PO PRN (20:21)
--- NOTE | 2016-04-06 23:47 | Wound Care Progress Note ---
Subjective Subjective Subjective/Events-last exam 55 year old female with a pressure ulcer of the L knee, following L BKA. The wound is stable with current dressing of bordered foam dressing. The patient has no complaints related to L knee ulcer. The patient has a lesion of R toe under the care of Dr. Mas. PMFSH: No interval change. Review of Systems Pulmonary: No Dyspnea Cardiovascular: No: Chest Pain Musculoskeletal: : other (s/p L BKA.) Integumentary -- Wounds of sacrum, L knee. Healing L BKA incision. Psych -- Some depression, anxious. Objective Exam Last Set of Vital Signs Vital Signs Date Time Temp Pulse Resp B/P Pulse Ox O2 Delivery O2 Flow Rate FiO2 04/06/16 17:17 97.9 94 20 130/81 100 Room Air Capillary Refill : Less Than 3 Seconds I&O Intake and Output 04/06/16 00:00 Intake Total 1800 ml Balance 1800 ml Intake Oral 1800 ml # Voids 12 # Bowel Movements 2 General: Alert, No Acute Distress Lungs: Normal Air Movement Skin: Other (L knee wound with 50% granulation and 50%slough) Results Lab Laboratory Tests 04/06/16 04:44: Glucometer 229H 04/06/16 06:19: Anion Gap 8, BUN/Creatinine Ratio 19, Blood Urea Nitrogen 23H, Calcium Level 8.8 , Carbon Dioxide Level 20L, Chloride Level 107, Creatinine 1.23, Estimat Glomerular Filtration Rate 45, Glucose Level 210H, Potassium Level 3.7, Sodium Level 135 04/06/16 11:10: Glucometer 215H 04/06/16 16:00: Glucometer 204H 04/06/16 20:43: Glucometer 227H Microbiology 03/09/16 C. difficile GDH Antigen & Toxins - Final, Complete 03/28/16 Urine Culture - Final, Complete Assessment/Plan Assessment/Plan Assessment/Plan 1. Pressure ulcer, L knee, unstageable. 2. S/P L BKA. Plan: continue protective dressing. QUINN HAWK MD Apr 06, 2016 23:47
[2016-04-07] MEDS: oxyCODONE/APAP 5/325MG (PERCOCET 5) TABLET PO PRN ×2 (00:17→20:00)
[2016-04-07] MEDS: ALPRAZolam 0.5 MG (XANAX) TAB PO PRN ×2 (03:01→20:02)
[2016-04-07 05:25] VITALS: BP 108/73
[2016-04-07] MEDS: inSUlin (REGULAR) HUMAN 1 UNIT/0.01 ML (CHARGE PER UNIT) SC SCH ×4 (05:27→21:00)
--- NOTE | 2016-04-07 07:37 | Progress Note (SOAP) ---
Subjective Subjective/Events-last exam patient voices no complaints. Patient seems content area Patient has improved since being here Objective Exam Vital Signs Date Time Temp Pulse Resp B/P Pulse Ox O2 Delivery O2 Flow Rate FiO2 04/07/16 05:25 97.3 96 20 108/73 98 Room Air 04/06/16 17:17 97.9 94 20 130/81 100 Room Air 04/06/16 08:30 Room Air I & O 04/07/16 07:00 Intake Total 1630 ml Balance 1630 ml Capillary Refill : Less Than 3 Seconds General Appearance: No Apparent Distress WD/WN Results Lab Laboratory Tests 04/06/16 11:10: Glucometer 215H 04/06/16 16:00: Glucometer 204H 04/06/16 20:43: Glucometer 227H 04/07/16 05:12: Glucometer 138H Microbiology 03/09/16 C. difficile GDH Antigen & Toxins - Final, Complete 03/28/16 Urine Culture - Final, Complete Assessment/Plan Assessment/Plan Assess & Plan/Chief Complaint left below the knee amputation. Diabetes. Peripheral vascular disease. Depression history. Hypertension history. . 03/11/16 left below knee amputation. Diabetes. Peripheral vascular disease. History of hypertension. C. difficile. Hypotensive. Health lisinopril. . Left knee below amputation. Diabetes. Peripheral vascular disease. History of atrial fibrillation. Patient in sinus rhythm. Hypotension. C. difficile. Diarrhea improving. . 03/15/16. Left below the knee amputation. Diabetes. Peripheral vascular disease. Depression history. Atrial fib. Blood pressure goodt and heart rate within normal limits. . 03/16/16. Left below the knee amputation. Peripheral vascular disease. Diabetes. C. difficile. History of atrial fibrillation. Diarrhea better. Potassium 3.3 Will replace. Patient has renal insufficiency. . 03/17/16. Left below the knee amputation. Diabetes. Peripheral vascular disease. Depression history. Patient doing better. Patient happy. Patient improving. . 03/18/16. Left below the knee amputation. Diabetes. 4 vascular disease. Depression history. UA shows infection. C. difficile. To put on antibiotics only for 2 days when get sensitivity. . 03/21/16. Left below the knee amputation. C. difficile. Stools are better. Diabetes. Peripheral vascular disease. To check UA tomorrow. . 02/3116. Left below the knee amputation. Diabetes. Peripheral vascular disease. Hypertension history. Patient doing better and happy. infection nitrate negative now done today. . 03/23/16. infection with different organism now. Waiting for sensitivity. Patient doing much better. Patient positive. Patient hopping 6 steps. Wound is healing. Patient in the right direction . 03/24/16. Left below the knee amputation. Diabetes. Peripheral vascular disease. Depression. Patient doing better. Patient improving. . 03/25/16 area Left below the knee amputation. Diabetes. Peripheral vascular disease. Depression. Patient is improving and feeling better about herself. . 03/28/16. Left below the knee amputation. Diabetes under better control. Peripheral vascular disease. infection to check urine today. Depression history. Hypertension. . 03/29/16. Patient worried about toe. Toe has some redness to it. To do arterial Doppler . Air Traffic Systems Technician to get involved again. To start on antibiotics. Patient not to smoke. Left below the knee amputation. Diabetes. Peripheral vascular disease. Depression. . . Left knee below amputation. Diabetes. Peripheral vascular disease. Depression. Hypertension. . 03/31/16. Kidney function better. Patient have procedure done today. Left below the knee amputation. Diabetes okay. Peripheral vascular disease. Hypertension history. . 04/01/16. Kidney function good. Patient has peripheral vascular disease. Left knee amputation. Peripheral vascular disease. Diabetes under control. Hypertension history. . 04/04/16. Left below the knee amputation. Diabetes. Peripheral vascular disease. Patient feel she is doing better. Occupational and physical therapy feels patient is improving. . 04/05/16. Left below the knee amputation. Diabetes. Peripheral vascular disease. [place] better. Back better. . 02/03/17. Left below the knee amputation. Diabetes. Peripheral vascular disease. Depression history. Hypertension history patient improving. . . Left below the knee amputation. Diabetes. Peripheral vascular disease. Depression history. Patient had renal insufficiency on metformin Diagnosis/Problems: Clinical Quality Measures DVT/VTE Risk/Contraindication: Risk Factor Score Per Nursin RFS Level Per Nursing on Admit: 4+=Very High URSULA RENEE DO Apr 07, 2016 07:37
--- NOTE | 2016-04-07 08:26 | PM & R (SOAP) Progress Note ---
Subjective Subjective/Events-last exam Patient was seen in her room this AM Patient dressing herself at the W/C level Patient Independent for w/c propulsion Objective Exam Last Set of Vital Signs Vital Signs Date Time Temp Pulse Resp B/P Pulse Ox O2 Delivery O2 Flow Rate FiO2 04/07/16 05:25 97.3 96 20 108/73 98 Room Air Capillary Refill : Less Than 3 Seconds I&O Intake and Output 04/07/16 00:00 Intake Total 1752 ml Balance 1752 ml Intake Oral 1752 ml # Voids 12 # Bowel Movements 1 General: Alert, Oriented X3, Cooperative, No Acute Distress HEENT: Atraumatic, PERRLA Neck: Supple, No JVD, No Thyromegaly Lungs: Clear to Auscultation, Normal Air Movement Heart: Regular Rate, Normal S1, Normal S2, No Murmurs Abdomen: Normal Bowel Sounds, Soft, No Tenderness Extremities: Other (The patient has been noted to have an ulcer of the R foot which is under the care of Dr. Mas.) Skin: No Rashes, Other (Sacral wounds are essentially healed. L knee wound unchanged.) Neuro: Normal Speech, Strength at 5/5 X4 Ext, Other (mild weakness RLE) Psych/Mental Status: Mental Status NL Results Lab Laboratory Tests 04/04/16 11:21: Glucometer 158H 04/04/16 16:02: Glucometer 204H 04/04/16 22:04: Glucometer 237H 04/05/16 05:04: Glucometer 150H 04/05/16 10:58: Glucometer 193H 04/05/16 15:43: Glucometer 202H 04/05/16 21:29: Glucometer 207H 04/06/16 04:44: Glucometer 229H 04/06/16 06:19: Anion Gap 8, BUN/Creatinine Ratio 19, Blood Urea Nitrogen 23H, Calcium Level 8.8 , Carbon Dioxide Level 20L, Chloride Level 107, Creatinine 1.23, Estimat Glomerular Filtration Rate 45, Glucose Level 210H, Potassium Level 3.7, Sodium Level 135 04/06/16 11:10: Glucometer 215H 04/06/16 16:00: Glucometer 204H 04/06/16 20:43: Glucometer 227H 04/07/16 05:12: Glucometer 138H 04/07/16 08:02: Microbiology 03/09/16 C. difficile GDH Antigen & Toxins - Final, Complete 03/28/16 Urine Culture - Final, Complete Assessment/Plan Assessment Left BKA 02-01-16 OSH for gangrenous left foot Postop C DIF bowel colitis associated with sepsis treated at OSH-now on Vanco for ongoing treatment-improved Mild Hypokalemia Mild postop Anemia IDDM controlled HTN with hx of afib now sinus with hypotension depression on meds Tobaccoism declines Smoking cessation Trace edema rt ankle Uncertain if patient would tolerate Freddy hose-Lasix prn ordered-one dose ordered with improvement-resolved UTI with fever now afebrile on Vanco Check sensitivity-done Controlled descent to floor 03-24-16 Onychomycosis of toenails Peripheral Vasc d with claudcation complaints RLE- s/pcath revealing stenosis rt Popliteal artery awaiting possible stent which may be done as an outpatient- Will f/u with SW/ Cardiology re details of plan Plan Continue PT/OT DR Barrios to see re cardiac meds with echo ordered-done appreciate his consult and f/u-awaiting f/u labs to clear for stent placement [id number] awaiting stent availability-may be done as outpatient recheck labs-done Lasix times one done-edema improved Completed course of Flagyl for Cdif now on course of Vanco with meds adjusted to promote formed st F/U re sensitivity of Gram Negative rods.-done-now repeat pending Apprediate DR sharp notes and orders Podiatry consult for diabetic foot care-done SW contacted me last week re letter to support additional financial assistance from [place] so that she may have a home to go to -signed Recheck with patient re resolution of neck pain-improved F/U with Dr Christina and Sophie re further eval and treatment of Periheral Vasc D. RLE- Team Conference hedl yesterday-See report for full functional update and POC and ELOS RX for DME provided as per above Discharge remains tentatively set for tomorrow to home with spouse in [place] Will confirm discharge plans with IRMA FREITAS MD Apr 07, 2016 08:26
[2016-04-07 08:28] LABS: CALCIUM 8.9 MG/DL (8.5-10.1); CREATININE SERUM 1.23 MG/DL (0.60-1.30)
[2016-04-07] MEDS: CLOPIDOGREL 75 MG (PLAVIX) TABLET PO SCH (09:36)
[2016-04-07] MEDS: DULoxetine 30 MG (CYMBALTA) CAP PO SCH (09:39)
[2016-04-07] MEDS: ASPIRIN E.C. 81 MG (ECOTRIN) TAB PO SCH (09:39)
[2016-04-07] MEDS: GABAPENTIN 600 MG (NEURONTIN) TAB PO SCH ×3 (09:39→20:02)
[2016-04-07] MEDS: SILVER SULFADIAZINE 50 GM CREAM TOP SCH (09:39)
[2016-04-07] MEDS: DILTIAZEM 120 MG (CARDIZEM CD) CAP PO SCH (09:39)
[2016-04-07] MEDS: MUPIROCIN 2% OINT 22 GM (BACTROBAN) TUBE TOP SCH ×2 (09:40→20:04)
[2016-04-07] MEDS: FUROSEMIDE 20 MG (LASIX) TAB PO PRN (09:43)
--- NOTE | 2016-04-07 11:26 | Occupational Ther Daily Note ---
OT Current Status-Daily Note Subjective Pt sitting in w/c agrees to treatment. Pt states plan is for her to d/c home Monday with family. Mental Status/Objective Functional [place] Measure 0=Not Assessed/NA 4=Minimal Assistance 1=Total Assistance 5=Supervision or Setup 2=Maximal Assistance 6=Modified [place] 3=Moderate Assistance 7=Complete [place] ADL-Treatment Pt performed w/c <-> BSC transfers x3 reps with FWW. Pt requires SBA for transfers. Pt also practiced tub/shower transfers utilizing extended shower bench. Pt able to perform transfers with SBA and cues for technique. Functional [place] Measure 0=Not Assessed/NA 4=Minimal Assistance 1=Total Assistance 5=Supervision or Setup 2=Maximal Assistance 6=Modified [place] 3=Moderate Assistance 7=Complete IndependenceIRFPAI Quality Coding Scale 6 Independent with activity with or without an assistive device 5 Patient requires set up or clean up by helper. Patient completes activity by themselves 4 Supervision or touching assist (CGA). [place] provide cues , steadying assist 3 The helper provides less than half the effort to complete the activity 2 The helper provides more than half the effort to complete the activity 1 Dependent. The helper does all the effort to complete an activity 7 Patient refused to complete or attempt activity 9 The patient did not perform the activity before the current illness or injury 88 Not attempted due to Medical conditions or safety concerns Toilet/Commode Transfer (FIM): 5 Other Treatment Pt performed w/c mobility to therapy gym without assistance. Chair push ups x20 reps to increase strength needed for transfers. Arm bike [id number] to increase overall strength and activity tolerance. Pt performed activity with moderate resistance. No rest breaks needed. Pt completed fine motor peg activity with 2# weights in place to increase strength and manipulation skills. Balloon bat activity completed with bilateral UE with 2# weights in place to increase UE strength and activity tolerance. One rest break during activity. Pt performed bilateral UE exercises to promote increased strength needed for ADLs and transfers. Pt performed shoulder flexion, abduction, shoulder press, biceps curls, triceps extension exercises x20 reps with 3# weights. Rest breaks taken between exercises. Pt returned to room, sitting in w/c with needs met after session. OT Short Term Goals Short Term Goals Time Frame: Mar 17, 2016 Bathing(FIM): 4 Lower Body Dressing(FIM): 3 Toileting(FIM): 3 Toilet/Commode Transfer(FIM): 4 Shower Transfer(FIM): 3 Additional Short Term Goals: 1-Demonstrate ADL Tasks, 2-Verbalize Understanding , 3-ImproveStrength/Mahad 1=Demonstrate adherence to instructed precautions during ADL tasks. 2=Patient will verbalize/demonstrate understanding of assistive devices/ modifications for ADL. 3=Patient will improve strength/tolerance for activity to enable patient to perform ADL's. OT Resource Protection Specialist Goals Resource Protection Specialist Goals Time Frame: Mar 31, 2016 Eating (FIM): 6 Eating (QC): 6 Groomin Oral Hygiene (QC): 6 Bathing(FIM): 5 Shower/Bathe Self (QC): 4 Upper Body Dressing(FIM): 6 Upper Body Dressing (QC): 6 Lower Body Dressing(FIM): 5 Lower Body Dressing (QC): 4 On/Off Footwear (QC): 5 Toileting(FIM): 5 Toileting Hygiene (QC): 4 Toilet/Commode Transfer(FIM): 5 Toilet/Commode Transfer (QC): 4 Shower Transfer(FIM): 4 Additional Goals: 1-Demonstrate ADL Tasks, 2-Verbalize Understanding, 3- ImproveStrength/Mahad 1=Demonstrate adherence to instructed precautions during ADL tasks. 2=Patient will verbalize/demonstrate understanding of assistive devices/ modifications for ADL. 3=Patient will improve strength/tolerance for activity to enable patient to perform ADL's. OT Education/Plan Problem List/Assessment Pt demonstrates decreased mobility, strength, activity tolerance, and ADL performance. Pt to benefit from skilled OT intervention for ADL training, transfers, strengthening, adaptive equipment training as needed, and home safety education to maximize level of function and allow safe discharge. Discharge Recommendations Plan/Recommendations: Continue POC Treatment Plan/Plan of Care Patient would benefit from OT for education, treatment and training to promote independence in ADL's, mobility, safety and/or upper extremity function for ADL' s. Plan of Care: ADL Retraining, Functional Mobility, Group Exercise/Act as Ind, UE Funct Exercise/Act Treatment Duration: Mar 31, 2016 Visits Per Week: 10-11 Minutes/Day (M-F): 60-90 Minutes/Day (Sat/[place]): PRN Agreement: Yes Rehab Potential: Fair Time/GCodes Start Time: 08:00 Stop Time: 09:30 Total Time Billed (hr/min): 90 Billed Treatment Time 1 visit, FA(20minutes), EXx5(70) OLIVIA NELSON OT Apr 07, 2016 11:26
--- NOTE | 2016-04-07 13:43 | Physical Therapy Daily Note ---
PT Daily Note-Current Subjective Pt sitting in W/C upon arrival. Pt reports feeling good and excited for discharge on Monday. Pt agrees to PT. Pain Numeric Pain Scale: 0-No Pain Location: No Pain Reported Mental Status Patient Orientation: Person, Place, Time, Situation Transfers Functional [place] Measure 0=Not Assessed/NA 4=Minimal Assistance 1=Total Assistance 5=Supervision or Setup 2=Maximal Assistance 6=Modified [place] 3=Moderate Assistance 7=Complete IndependenceIRFPAI Quality Coding Scale 6 Independent with activity with or without an assistive device 5 Patient requires set up or clean up by helper. Patient completes activity by themselves 4 Supervision or touching assist (CGA). [place] provide cues , steadying assist 3 The helper provides less than half the effort to complete the activity 2 The helper provides more than half the effort to complete the activity 1 Dependent. The helper does all the effort to complete an activity 7 Patient refused to complete or attempt activity 9 The patient did not perform the activity before the current illness or injury 88 Not attempted due to Medical conditions or safety concerns Scootin Rollin Roll Left to Right (QC): 6 Supine to/from Sit: 5 Sit to/from Stand: 5 Sit to Lying (QC): 6 Sit to Stand (QC): 5 Chair/Tzc-ar-Zmwiy Xfer(QC): 5 Bed to/from Chair: 5 Car Transfer (QC): 5 Pt completed stimulated car transfer because car not present. Weight Bearing Weight Bearing Restriction: Full Weight Bearing Location Restriction: R LE Gait Training Does the Patient Walk?: Yes Gait (FIM): 3 Distance (FIM): 3=776-68 ft Distance: 125' Walk 10 feet (QC): 5 Walk 50 ft with 2 Turns(QC): 5 Walk 150 ft (QC): 88 Walking 10ft/uneven surface-QC: 4 Gait Level of Assist: 5 Gait Persons Needed: 1 Gait Assistive Device: FWW Pt has hop to gait pattern on RLE. Pt gets fatigued easy. Pt takes short rest break when fatigued. Pt reports using arms & shoulders more even fatigued. Wheelchair Training Does the Pt Use a Wheelchair?: Yes Wheelchair (FIM): 5 Wheelchair Distance: 3=150 ft Distance: 150' Wheelchair Level of Assist: 5 Wheel 50 ft with 2 turns (QC): 5 Wheel 150 ft (QC): 5 Type of Wheelchair: Manual Balance Special Test Comments Did not attempt due to safety of pt Exercises Supine Ex: Glut sets, Straight leg raise, Hip abd/add Supine Reps: 10 Seated Therapy Exercises: Sit to stand Seated Reps: 10 Treatments Pt transferred from W/C to standing using FWW at [facility]. Pt ambulated approx. 50' using FWW at [facility] with W/C following for fatigue. When fatigued, pt transferred back to W/C at [facility] and propelled to Therapy Gym Mod I. Pt transferred to mat at [facility] for transfer practice. After transferring EOB to supine then rolled side to side before completing supine EX. Pt then transferred back to W/C and propelled into hallway. Pt ambulated in hallway using FWW at [facility]. Pt ambulated on uneven surface for 10+' before transferring back to W/C due to fatigue. Pt propelled back to room and remained up in W/C at end of tx with all needs met. Assessment Current Status: Good Progress Pt continues to get stronger and more independent with transfers. Pt still fatigues and can work on her activity tolerance. PT Short Term Goals Short Term Goals Time Frame: Mar 17, 2016 Gait (FIM): 1 Gait Distance Comment: 10' Gait Level of Assist: 4 Gait Assistive Device: FWW Wheelchair Distance: 150'x2 PT Skilled Nursing Goals Skilled Nursing Goals PT Community Ambassador Goals Time Frame: Mar 31, 2016 Transfers (B,C,W/C) (FIM): 5 Sit to Lying (QC): 4 Lying-Sitting on Side/Bed(QC): 4 Sit to Stand (QC): 4 Rollin Roll Left to Right (QC): 4 Chair/[place]-Vcchg Xfer(QC): 4 Car Transfer (QC): 4 Gait (FIM): 1 Distance: 20' Walk 10 feet (QC): 4 Walk 10ft-Uneven Surface(QC): 4 Walk 50ft with 2 Turns (QC): 88 Walk 150 ft (QC): 88 Gait Level of Assist: 5 Gait Assistive Device: FWW Wheelchair (FIM): 6 Distance: 150' Wheelchair Level of Assist: 6 Wheel 50 feet with 2 turns (QC: 6 Stairs (FIM): 2 # of Steps: 4 1 Step (curb) (QC): 4 4 Steps (QC): 4 12 Steps (QC): 88 Stairs Level Of Assist: 4 Picking up an Object (QC): 88 PT Plan Problem List Problem List: Activity Tolerance, Functional Strength, Gait Treatment/Plan Treatment Plan: Continue Plan of Care Treatment Plan: Bed Mobility, Education, Functional Activity Mahad, Functional Strength, Group Therapy, Gait, Safety, Therapeutic Exercise, Transfers Treatment Duration: Mar 31, 2016 Visits Per Week: 10-11 Minutes/Day (M-F): 60-90 Minutes/Day (Sat/[place]): 15-30 Safety Risks/Education Patient Education: Gait Training, Transfer Techniques, Correct Positioning, Safety Issues Teaching Recipient: Patient Teaching Methods: Discussion Response to Teaching: Verbalize Understanding Time/GCodes Time In: 1000 Time Out: 1100 Total Billed Treatment Time: 60 Total Billed Treatment visit, GT (15m), WCH (15m), EX (15m) & FA (15m) ALETHEA OATES CUSTOMER SUCCESS SPECIALIST Apr 07, 2016 13:43
--- NOTE | 2016-04-07 15:45 | Physical Therapy Daily Note ---
PT Daily Note-Current Subjective Pt sitting up in W/C talking to SSI upon arrival. Pt agrees to PT. Pain Numeric Pain Scale: 0-No Pain Location: No Pain Reported Mental Status Patient Orientation: Person, Place, Time, Situation Transfers Functional [place] Measure 0=Not Assessed/NA 4=Minimal Assistance 1=Total Assistance 5=Supervision or Setup 2=Maximal Assistance 6=Modified [place] 3=Moderate Assistance 7=Complete IndependenceIRFPAI Quality Coding Scale 6 Independent with activity with or without an assistive device 5 Patient requires set up or clean up by helper. Patient completes activity by themselves 4 Supervision or touching assist (CGA). [place] provide cues , steadying assist 3 The helper provides less than half the effort to complete the activity 2 The helper provides more than half the effort to complete the activity 1 Dependent. The helper does all the effort to complete an activity 7 Patient refused to complete or attempt activity 9 The patient did not perform the activity before the current illness or injury 88 Not attempted due to Medical conditions or safety concerns Scootin Rollin Roll Left to Right (QC): 6 Supine to/from Sit: 5 Sit to/from Stand: 5 Sit to Lying (QC): 6 Sit to Stand (QC): 5 Chair/But-em-Tauon Xfer(QC): 5 Bed to/from Chair: 5 Weight Bearing Weight Bearing Restriction: Full Weight Bearing Location Restriction: R LE Wheelchair Training Does the Pt Use a Wheelchair?: Yes Wheelchair (FIM): 5 Wheelchair Distance: 3=150 ft Distance: 150' Wheelchair Level of Assist: 5 Wheel 50 ft with 2 turns (QC): 5 Wheel 150 ft (QC): 5 Type of Wheelchair: Manual Exercises Supine Ex: Quad Set, Glut sets, Straight leg raise, Hip abd/add Supine Reps: 15 Treatments Pt propels self to Therapy Gym then transfers from W/C to EOB at SBA then EOB to supine at Mod I. Pt completed supine EX then transferred back to W/C at SBA. Pt propelled self back to room to rest at end of tx. Pt left with all needs met. Assessment Current Status: Good Progress Pt is gaining independence with transfers and mobility. PT Short Term Goals Short Term Goals Time Frame: Mar 17, 2016 Gait (FIM): 1 Gait Distance Comment: 10' Gait Level of Assist: 4 Gait Assistive Device: FWW Wheelchair Distance: 150' PT Compressor Technician Goals Half-Way Goals PT Compressor Technician Goals Time Frame: Mar 31, 2016 Transfers (B,C,W/C) (FIM): 5 Sit to Lying (QC): 4 Lying-Sitting on Side/Bed(QC): 4 Sit to Stand (QC): 4 Rollin Roll Left to Right (QC): 4 Chair/Lyr-le-Uybtj Xfer(QC): 4 Car Transfer (QC): 4 Gait (FIM): 1 Distance: 20' Walk 10 feet (QC): 4 Walk 10ft-Uneven Surface(QC): 4 Walk 50ft with 2 Turns (QC): 88 Walk 150 ft (QC): 88 Gait Level of Assist: 5 Gait Assistive Device: FWW Wheelchair (FIM): 6 Distance: 150' Wheelchair Level of Assist: 6 Wheel 50 feet with 2 turns (QC: 6 Stairs (FIM): 2 # of Steps: 4 1 Step (curb) (QC): 4 4 Steps (QC): 4 12 Steps (QC): 88 Stairs Level Of Assist: 4 Picking up an Object (QC): 88 PT Plan Problem List Problem List: Activity Tolerance, Functional Strength, Gait Treatment/Plan Treatment Plan: Continue Plan of Care Treatment Plan: Bed Mobility, Education, Functional Activity Mahad, Functional Strength, Group Therapy, Gait, Safety, Therapeutic Exercise, Transfers Treatment Duration: Mar 31, 2016 Visits Per Week: 10-11 Minutes/Day (M-F): 60-90 Minutes/Day (Sat/[place]): 15-30 Safety Risks/Education Patient Education: Gait Training, Transfer Techniques, Correct Positioning, Safety Issues Teaching Recipient: Patient Teaching Methods: Discussion Response to Teaching: Verbalize Understanding Time/GCodes Time In: 1330 Time Out: 1400 Total Billed Treatment Time: 30 Total Billed Treatment visit, EX (15m) & WCH (15m) ALETHEA OATES PTA Apr 07, 2016 15:45
[2016-04-07 19:34] VITALS: BP 117/81
[2016-04-07] MEDS: ENOXAPARIN 40 MG/0.4 ML (LOVENOX) SYR SC SCH (19:59)
[2016-04-07] MEDS: inSUlin DETERMIR 1 UNIT/0.01 ML (LEVEMIR) CHARGE PER UNIT SQ SCH (20:01)
[2016-04-07] MEDS: ATORVASTATIN 40 MG (LIPITOR) TABLET PO SCH (20:02)
[2016-04-08] MEDS: oxyCODONE/APAP 5/325MG (PERCOCET 5) TABLET PO PRN ×3 (04:27→22:42)
[2016-04-08 06:00] VITALS: BP 121/81
[2016-04-08] MEDS: inSUlin (REGULAR) HUMAN 1 UNIT/0.01 ML (CHARGE PER UNIT) SC SCH ×4 (06:00→21:46)
[2016-04-08 07:20] LABS: CALCIUM 8.7 MG/DL (8.5-10.1); CREATININE SERUM 1.24 MG/DL (0.60-1.30); POTASSIUM 3.9 MMOL/L (3.6-5.0)
--- NOTE | 2016-04-08 08:25 | PM & R (SOAP) Progress Note ---
Subjective Subjective/Events-last exam Patient was seen in her room this AM Sitting up in chair Patient SBA for transfers.Patient reports pain in rt foot much improved.She indicates that discharge for tomorrow all set and that she will have f/u with local Physician Conrad and with Wound clinic here with DR Darden Objective Exam Last Set of Vital Signs Vital Signs Date Time Temp Pulse Resp B/P Pulse Ox O2 Delivery O2 Flow Rate FiO2 04/08/16 06:00 97.7 98 18 121/81 91 Room Air Capillary Refill : Less Than 3 Seconds I&O Intake and Output 04/08/16 00:00 Intake Total 1350 ml Balance 1350 ml Intake Oral 1350 ml # Voids 7 # Bowel Movements 3 General: Alert, Oriented X3, Cooperative, No Acute Distress HEENT: Atraumatic, PERRLA Neck: Supple, No JVD, No Thyromegaly Lungs: Clear to Auscultation, Normal Air Movement Heart: Regular Rate, Normal S1, Normal S2, No Murmurs Abdomen: Normal Bowel Sounds, Soft, No Tenderness Extremities: Other (The patient has been noted to have an ulcer of the R foot which is under the care of Dr. Mas.) Skin: No Rashes, Other (Sacral wounds are essentially healed. L knee wound unchanged.) Neuro: Normal Speech, Strength at 5/5 X4 Ext, Other (mild weakness RLE) Psych/Mental Status: Mental Status NL Results Lab Laboratory Tests 04/05/16 10:58: Glucometer 193H 04/05/16 15:43: Glucometer 202H 04/05/16 21:29: Glucometer 207H 04/06/16 04:44: Glucometer 229H 04/06/16 06:19: Anion Gap 8, BUN/Creatinine Ratio 19, Blood Urea Nitrogen 23H, Calcium Level 8.8 , Carbon Dioxide Level 20L, Chloride Level 107, Creatinine 1.23, Estimat Glomerular Filtration Rate 45, Glucose Level 210H, Potassium Level 3.7, Sodium Level 135 04/06/16 11:10: Glucometer 215H 04/06/16 16:00: Glucometer 204H 04/06/16 20:43: Glucometer 227H 04/07/16 05:12: Glucometer 138H 04/07/16 08:02: Anion Gap 10, BUN/Creatinine Ratio 18, Blood Urea Nitrogen 22H, Calcium Level 8.9, Carbon Dioxide Level 20L, Chloride Level 106, Creatinine 1.23, Estimat Glomerular Filtration Rate 45, Glucose Level 145H, Potassium Level 4.0, Sodium Level 136 04/07/16 11:07: Glucometer 174H 04/07/16 15:56: Glucometer 228H 04/07/16 20:08: Glucometer 187H 04/08/16 05:48: Glucometer 195H 04/08/16 06:40: Anion Gap 10, BUN/Creatinine Ratio 19, Blood Urea Nitrogen 23H, Calcium Level 8.7, Carbon Dioxide Level 18L, Chloride Level 106, Creatinine 1.24, Estimat Glomerular Filtration Rate 45, Glucose Level 206H, Potassium Level 3.9, Sodium Level 134L Microbiology 03/09/16 C. difficile GDH Antigen & Toxins - Final, Complete 03/28/16 Urine Culture - Final, Complete Assessment/Plan Assessment Left BKA 02-01-16 OSH for gangrenous left foot Postop C DIF bowel colitis associated with sepsis treated at OSH-now on Vanco for ongoing treatment-improved Mild Hypokalemia Mild postop Anemia IDDM controlled HTN with hx of afib now sinus with hypotension depression on meds Tobaccoism declines Smoking cessation Trace edema rt ankle Uncertain if patient would tolerate Freddy hose-Lasix prn ordered-one dose ordered with improvement-resolved UTI with fever now afebrile on Vanco Check sensitivity-done Controlled descent to floor 03-24-16 Onychomycosis of toenails Peripheral Vasc d with claudcation complaints RLE- s/pcath revealing stenosis rt Popliteal artery awaiting possible stent which may be done as an outpatient- Will f/u with SW/ Cardiology re details of plan Plan Continue PT/OT DR Barrios to see re cardiac meds with echo ordered-done appreciate his consult and f/u-awaiting f/u labs to clear for stent placement [id number] awaiting stent availability-may be done as outpatient recheck labs-done Lasix times one done-edema improved Completed course of Flagyl for Cdif now on course of Vanco with meds adjusted to promote formed st F/U re sensitivity of Gram Negative rods.-done-now repeat pending Apprediate DR sharp notes and orders Podiatry consult for diabetic foot care-done SW contacted me last week re letter to support additional financial assistance from [place] so that she may have a home to go to -signed Recheck with patient re resolution of neck pain-improved F/U with Dr Christina and Sophie re further eval and treatment of Periheral Vasc D. RLE- Team Conference held 04/06/16-See report for full functional update and POC and ELOS RX for DME provided as per above Discharge remains set for tomorrow 04/09/16 to home with spouse in [place] Will confirm discharge plans with SW F/U with Physician in [place] and Wound care Center here as per above IRMA ESPINOZA MD Apr 08, 2016 08:25
[2016-04-08] MEDS: FUROSEMIDE 20 MG (LASIX) TAB PO PRN (08:54)
[2016-04-08] MEDS: CLOPIDOGREL 75 MG (PLAVIX) TABLET PO SCH (08:54)
[2016-04-08] MEDS: ASPIRIN E.C. 81 MG (ECOTRIN) TAB PO SCH (08:54)
[2016-04-08] MEDS: DULoxetine 30 MG (CYMBALTA) CAP PO SCH (08:54)
[2016-04-08] MEDS: GABAPENTIN 600 MG (NEURONTIN) TAB PO SCH ×3 (08:54→19:55)
[2016-04-08] MEDS: DILTIAZEM 120 MG (CARDIZEM CD) CAP PO SCH (08:54)
[2016-04-08] MEDS: SILVER SULFADIAZINE 50 GM CREAM TOP SCH (08:56)
[2016-04-08] MEDS: MUPIROCIN 2% OINT 22 GM (BACTROBAN) TUBE TOP SCH ×2 (09:00→21:00)
--- NOTE | 2016-04-08 09:15 | Progress Note (SOAP) ---
Subjective Subjective/Events-last exam patient feeling better today. Patient to be discharged tomorrow. Sugars are doing better. Has renal insufficiency little improved today Objective Exam Vital Signs Date Time Temp Pulse Resp B/P Pulse Ox O2 Delivery O2 Flow Rate FiO2 04/08/16 06:00 97.7 98 18 121/81 91 Room Air 04/07/16 19:34 97.2 100 18 117/81 98 Room Air I & O 04/08/16 07:00 Intake Total 1500 ml Balance 1500 ml Capillary Refill : Less Than 3 Seconds General Appearance: No Apparent Distress WD/WN Results Lab Laboratory Tests 04/08/16 06:40 Laboratory Tests 04/07/16 11:07: Glucometer 174H 04/07/16 15:56: Glucometer 228H 04/07/16 20:08: Glucometer 187H 04/08/16 05:48: Glucometer 195H 04/08/16 06:40: Anion Gap 10, BUN/Creatinine Ratio 19, Blood Urea Nitrogen 23H, Calcium Level 8.7, Carbon Dioxide Level 18L, Chloride Level 106, Creatinine 1.24, Estimat Glomerular Filtration Rate 45, Glucose Level 206H, Potassium Level 3.9, Sodium Level 134L Microbiology 03/09/16 C. difficile GDH Antigen & Toxins - Final, Complete 03/28/16 Urine Culture - Final, Complete Assessment/Plan Assessment/Plan Assess & Plan/Chief Complaint left below the knee amputation. Diabetes. Peripheral vascular disease. Depression history. Hypertension history. . 03/11/16 left below knee amputation. Diabetes. Peripheral vascular disease. History of hypertension. C. difficile. Hypotensive. Health lisinopril. . Left knee below amputation. Diabetes. Peripheral vascular disease. History of atrial fibrillation. Patient in sinus rhythm. Hypotension. C. difficile. Diarrhea improving. . 03/15/16. Left below the knee amputation. Diabetes. Peripheral vascular disease. Depression history. Atrial fib. Blood pressure goodt and heart rate within normal limits. . 03/16/16. Left below the knee amputation. Peripheral vascular disease. Diabetes. C. difficile. History of atrial fibrillation. Diarrhea better. Potassium 3.3 Will replace. Patient has renal insufficiency. . 03/17/16. Left below the knee amputation. Diabetes. Peripheral vascular disease. Depression history. Patient doing better. Patient happy. Patient improving. . 03/18/16. Left below the knee amputation. Diabetes. 4 vascular disease. Depression history. UA shows infection. C. difficile. To put on antibiotics only for 2 days when get sensitivity. . 03/21/16. Left below the knee amputation. C. difficile. Stools are better. Diabetes. Peripheral vascular disease. To check UA tomorrow. . 02/3116. Left below the knee amputation. Diabetes. Peripheral vascular disease. Hypertension history. Patient doing better and happy. infection nitrate negative now done today. . 03/23/16. infection with different organism now. Waiting for sensitivity. Patient doing much better. Patient positive. Patient hopping 6 steps. Wound is healing. Patient in the right direction . 03/24/16. Left below the knee amputation. Diabetes. Peripheral vascular disease. Depression. Patient doing better. Patient improving. . 03/25/16 area Left below the knee amputation. Diabetes. Peripheral vascular disease. Depression. Patient is improving and feeling better about herself. . 03/28/16. Left below the knee amputation. Diabetes under better control. Peripheral vascular disease. infection to check urine today. Depression history. Hypertension. . 03/29/16. Patient worried about toe. Toe has some redness to it. To do arterial Doppler . Mattress Renovator to get involved again. To start on antibiotics. Patient not to smoke. Left below the knee amputation. Diabetes. Peripheral vascular disease. Depression. . . Left knee below amputation. Diabetes. Peripheral vascular disease. Depression. Hypertension. . 03/31/16. Kidney function better. Patient have procedure done today. Left below the knee amputation. Diabetes okay. Peripheral vascular disease. Hypertension history. . 04/01/16. Kidney function good. Patient has peripheral vascular disease. Left knee amputation. Peripheral vascular disease. Diabetes under control. Hypertension history. . 04/04/16. Left below the knee amputation. Diabetes. Peripheral vascular disease. Patient feel she is doing better. Occupational and physical therapy feels patient is improving. . 04/05/16. Left below the knee amputation. Diabetes. Peripheral vascular disease. [place] better. Back better. . 02/03/17. Left below the knee amputation. Diabetes. Peripheral vascular disease. Depression history. Hypertension history patient improving. . . Left below the knee amputation. Diabetes. Peripheral vascular disease. Depression history. Patient had renal insufficiency on metforminarea . 04/08/16. Left below the knee amputation. Diabetes. Peripheral vascular disease. Depression history. Patient had renal insufficiency. Patient feeling better. Patient be discharged tomorrow. Patient voicing no complaints Diagnosis/Problems: Clinical Quality Measures DVT/VTE Risk/Contraindication: Risk Factor Score Per Nursin RFS Level Per Nursing on Admit: 4+=Very High URSULA RENEE DO Apr 08, 2016 09:15
[2016-04-08] MEDS ORDERED: DILT120C63 PO (10:33)
[2016-04-08] MEDS ORDERED: ZINC28PA TOP (10:33)
[2016-04-08] MEDS ORDERED: OXYC-471 PO (10:33)
[2016-04-08] MEDS ORDERED: ASPI-983 PO (10:33)
[2016-04-08] MEDS ORDERED: CLOP75TA28 PO (10:33)
[2016-04-08] MEDS ORDERED: ALPR0.5T7 PO (10:33)
[2016-04-08] MEDS ORDERED: SILV20CR14 TOP (10:33)
--- NOTE | 2016-04-08 11:03 | Physical Therapy Daily Note ---
PT Daily Note-Current Subjective Patient in wheelchair at bedside pre tx, agrees to PT, no complaints of pain. Appearance Patient in wheelchair at bedside post tx, has nurse call, phone, tray, all needs met. Mental Status Patient Orientation: Normal For Age Transfers Functional [place] Measure 0=Not Assessed/NA 4=Minimal Assistance 1=Total Assistance 5=Supervision or Setup 2=Maximal Assistance 6=Modified [place] 3=Moderate Assistance 7=Complete IndependenceIRFPAI Quality Coding Scale 6 Independent with activity with or without an assistive device 5 Patient requires set up or clean up by helper. Patient completes activity by themselves 4 Supervision or touching assist (CGA). [place] provide cues , steadying assist 3 The helper provides less than half the effort to complete the activity 2 The helper provides more than half the effort to complete the activity 1 Dependent. The helper does all the effort to complete an activity 7 Patient refused to complete or attempt activity 9 The patient did not perform the activity before the current illness or injury 88 Not attempted due to Medical conditions or safety concerns Transfers (B, C, W/C) (FIM): 5 Scootin Rollin Roll Left to Right (QC): 6 Supine to/from Sit: 6 Sit to/from Stand: 5 Sit to Lying (QC): 6 Sit to Stand (QC): 4 Chair/Qhh-mi-Izsgl Xfer(QC): 4 Bed to/from Chair: 5 Car Transfer (QC): 88 Gait Training Gait (FIM): 1 Distance: 25'x3 Walk 10 feet (QC): 4 Walk 50 ft with 2 Turns(QC): 88 Walk 150 ft (QC): 88 Walking 10ft/uneven surface-QC: 4 Gait Level of Assist: 4 Gait Persons Needed: 1 Gait Assistive Device: FWW Patient can ambulate 25' with a rolling walker with CGA even over an unlevel surface like carpet. Wheelchair Training Does the Pt Use a Wheelchair?: Yes Wheelchair (FIM): 6 Distance: 150'x2 Wheel 50 ft with 2 turns (QC): 6 Wheel 150 ft (QC): 6 Type of Wheelchair: Manual Stair Training Patient is not able to perform stairs because she cannot hop up high enough with her right leg to get onto the step. Exercises Supine Ex: Bridging, Quad Set, Straight leg raise, Hip abd/add Supine Reps: 20 prone left hip flexor stretch for 5 min, LAQ right side with 2# ankle weight for 5 min NuStep Minutes: 15 NuStep Workload: 4 Treatments bed mobility and transfers, ambulation, wheelchair mobility, functional strengthening Assessment Current Status: Fair Progress improved bed mobility PT Short Term Goals Short Term Goals Time Frame: Mar 17, 2016 Gait (FIM): 1 Gait Distance Comment: 10' Gait Level of Assist: 4 Gait Assistive Device: FWW Wheelchair Distance: 150' PT Network Contract Manager Goals Custodial Goals PT Custodial Goals Time Frame: Mar 31, 2016 Transfers (B,C,W/C) (FIM): 5 (met) Sit to Lying (QC): 4 (met) Lying-Sitting on Side/Bed(QC): 4 (met) Sit to Stand (QC): 4 (met) Rollin (met) Roll Left to Right (QC): 4 (met) Chair/Fnb-ht-Rwhbc Xfer(QC): 4 (met) Car Transfer (QC): 4 Gait (FIM): 1 (met) Distance: 20' Walk 10 feet (QC): 4 (met) Walk 10ft-Uneven Surface(QC): 4 (met) Walk 50ft with 2 Turns (QC): 88 Walk 150 ft (QC): 88 Gait Level of Assist: 5 Gait Assistive Device: FWW Wheelchair (FIM): 6 (met) Distance: 150' Wheelchair Level of Assist: 6 Wheel 50 feet with 2 turns (QC: 6 (met) Stairs (FIM): 2 # of Steps: 4 1 Step (curb) (QC): 4 4 Steps (QC): 4 12 Steps (QC): 88 Stairs Level Of Assist: 4 Picking up an Object (QC): 88 PT Plan Problem List Problem List: Activity Tolerance, Functional Strength, Safety, Balance, Gait, Transfer, Bed Mobility, ROM Treatment/Plan Treatment Plan: Continue Plan of Care Treatment Plan: Bed Mobility, Education, Functional Activity Mahad, Functional Strength, Group Therapy, Gait, Safety, Therapeutic Exercise, Transfers Treatment Duration: Mar 31, 2016 Visits Per Week: 10-11 Minutes/Day (M-F): 60-90 Minutes/Day (Sat/[place]): 15-30 Safety Risks/Education Patient Education: Gait Training, Transfer Techniques, Correct Positioning, W/ C Management, Safety Issues Teaching Recipient: Patient Teaching Methods: Demonstration, Discussion Response to Teaching: Reinforcement Needed Time/GCodes Time In: 1000 Time Out: 1100 Total Billed Treatment Time: 60 Total Billed Treatment 1 visit GT 30 min EX 30 min GEM DANIELSON PT Apr 08, 2016 11:03
--- NOTE | 2016-04-08 12:41 | Occupational Ther Daily Note ---
OT Current Status-Daily Note Subjective Pt agrees to therapy this am. Plan is to d/c home tomorrow with spouse and daughter Mental Status/Objective Functional [place] Measure 0=Not Assessed/NA 4=Minimal Assistance 1=Total Assistance 5=Supervision or Setup 2=Maximal Assistance 6=Modified [place] 3=Moderate Assistance 7=Complete [place] ADL-Treatment Pt has already retrieved clothing without assistance. Pt completed grooming tasks including oral care, with modified independence while seated at sink. Transfer to shower with CGA using grab bars for safety. Pt doffed clothing without assistance. Pt able to wash/dry all areas with SBA. Don bra and pullover shirt with modified independence. Don underwear and shorts with SBA using FWW for balance. RN present to place dressing on right third toe. Assist required to don JH hose on right. Don sock without assistance. Functional [place] Measure 0=Not Assessed/NA 4=Minimal Assistance 1=Total Assistance 5=Supervision or Setup 2=Maximal Assistance 6=Modified [place] 3=Moderate Assistance 7=Complete IndependenceIRFPAI Quality Coding Scale 6 Independent with activity with or without an assistive device 5 Patient requires set up or clean up by helper. Patient completes activity by themselves 4 Supervision or touching assist (CGA). [place] provide cues , steadying assist 3 The helper provides less than half the effort to complete the activity 2 The helper provides more than half the effort to complete the activity 1 Dependent. The helper does all the effort to complete an activity 7 Patient refused to complete or attempt activity 9 The patient did not perform the activity before the current illness or injury 88 Not attempted due to Medical conditions or safety concerns Eating (FIM): 7 (Pt reports feeding self and managing containers/packages without assitance.) Eating (QC): 6 Grooming (FIM): 6 Oral Hygiene (QC): 6 Bathing (FIM): 5 Shower/Bathe Self (QC): 5 Upper Body (FIM): 6 Upper Body Dressing (QC): 6 Lower Body Dressing (FIM): 5 Lower Body Dressing (QC): 4 On/Off Footwear (QC): 5 Shower Transfer(FIM): 4 (CGA) Other Treatment Pt performed bilateral UE exercises to promote increased strength needed for ADLs and transfers. Pt completed shoulder flexion, abduction, biceps curls, and triceps extension exercises x20 reps with 3# weight. Pt sitting in w/c with needs met after session. OT Short Term Goals Short Term Goals Time Frame: Mar 17, 2016 Bathing(FIM): 4 Lower Body Dressing(FIM): 3 Toileting(FIM): 3 Toilet/Commode Transfer(FIM): 4 Shower Transfer(FIM): 3 Additional Short Term Goals: 1-Demonstrate ADL Tasks, 2-Verbalize Understanding , 3-ImproveStrength/Mahad 1=Demonstrate adherence to instructed precautions during ADL tasks. 2=Patient will verbalize/demonstrate understanding of assistive devices/ modifications for ADL. 3=Patient will improve strength/tolerance for activity to enable patient to perform ADL's. OT Supervisor Packing Room Goals Supervisor Packing Room Goals Time Frame: Mar 31, 2016 Eating (FIM): 6 (met ) Eating (QC): 6 (met 04/08/16) Groomin (met04/08/16) Oral Hygiene (QC): 6 (6-MET) Bathing(FIM): 5 (Met 04/08/16) Shower/Bathe Self (QC): 4 (5-exceeded) Upper Body Dressing(FIM): 6 (met 04/08/16) Upper Body Dressing (QC): 6 (6-MET) Lower Body Dressing(FIM): 5 (Met 04/08/16) Lower Body Dressing (QC): 4 (4-MET) On/Off Footwear (QC): 5 (5-MET) Toileting(FIM): 5 Toileting Hygiene (QC): 4 Toilet/Commode Transfer(FIM): 5 Toilet/Commode Transfer (QC): 4 Shower Transfer(FIM): 4 (Met-CGA) Additional Goals: 1-Demonstrate ADL Tasks, 2-Verbalize Understanding, 3- ImproveStrength/Mahad 1=Demonstrate adherence to instructed precautions during ADL tasks. 2=Patient will verbalize/demonstrate understanding of assistive devices/ modifications for ADL. 3=Patient will improve strength/tolerance for activity to enable patient to perform ADL's. OT Education/Plan Problem List/Assessment Pt demonstrates decreased mobility, strength, activity tolerance, and ADL performance. Pt to benefit from skilled OT intervention for ADL training, transfers, strengthening, adaptive equipment training as needed, and home safety education to maximize level of function and allow safe discharge. Discharge Recommendations Plan/Recommendations: Continue POC Treatment Plan/Plan of Care Patient would benefit from OT for education, treatment and training to promote independence in ADL's, mobility, safety and/or upper extremity function for ADL' s. Plan of Care: ADL Retraining, Functional Mobility, Group Exercise/Act as Ind, UE Funct Exercise/Act Treatment Duration: Mar 31, 2016 Visits Per Week: 10-11 Minutes/Day (M-F): 60-90 Minutes/Day (Sat/[place]): PRN Agreement: Yes Rehab Potential: Fair Time/GCodes Start Time: 08:00 Stop Time: 09:00 Total Time Billed (hr/min): 60 Billed Treatment Time 1 visit, ADLx3(45minutes), EX(15minutes) OLIVIA NELSON OT Apr 08, 2016 12:41
--- NOTE | 2016-04-08 14:15 | Occupational Ther Daily Note ---
OT Current Status-Daily Note Subjective Pt sitting in w/c, agrees to treatment. Mental Status/Objective Functional [place] Measure 0=Not Assessed/NA 4=Minimal Assistance 1=Total Assistance 5=Supervision or Setup 2=Maximal Assistance 6=Modified [place] 3=Moderate Assistance 7=Complete [place] ADL-Treatment Pt demonstrated ability to perform transfer w/c<-> BSC with SBA using FWW. Pt states she has been managing her own hygiene and clothing with SBA. Pt has a shower bench and tub cane that will be used at home. Education provided regarding tub transfer utilizing the bench and tub cane. Pt transferred to tub with CGA, but required moderate assistance secondary to low bench and tub cane on left side. On second and third trials the tub cane was placed on right side and pt was able to complete transfer with CGA. Education provided regarding safety precautions and home use. Pt states understanding of education and states she will only shower and transfer when someone is available to assist her. Pt will also have toilet riser, FWW, and w/c for home use. Pt has no further questions or concerns at this time. Plan is to d/c home tomorrow with family. Functional [place] Measure 0=Not Assessed/NA 4=Minimal Assistance 1=Total Assistance 5=Supervision or Setup 2=Maximal Assistance 6=Modified [place] 3=Moderate Assistance 7=Complete IndependenceIRFPAI Quality Coding Scale 6 Independent with activity with or without an assistive device 5 Patient requires set up or clean up by helper. Patient completes activity by themselves 4 Supervision or touching assist (CGA). [place] provide cues , steadying assist 3 The helper provides less than half the effort to complete the activity 2 The helper provides more than half the effort to complete the activity 1 Dependent. The helper does all the effort to complete an activity 7 Patient refused to complete or attempt activity 9 The patient did not perform the activity before the current illness or injury 88 Not attempted due to Medical conditions or safety concerns Toileting Hygiene (QC): 4 (SBA) Toileting (FIM): 5 Toilet/Commode Transfer (FIM): 5 Toilet Transfer (QC): 4 (SBA) OT Short Term Goals Short Term Goals Time Frame: Mar 17, 2016 Bathing(FIM): 4 Lower Body Dressing(FIM): 3 Toileting(FIM): 3 Toilet/Commode Transfer(FIM): 4 Shower Transfer(FIM): 3 Additional Short Term Goals: 1-Demonstrate ADL Tasks, 2-Verbalize Understanding , 3-ImproveStrength/Mahad 1=Demonstrate adherence to instructed precautions during ADL tasks. 2=Patient will verbalize/demonstrate understanding of assistive devices/ modifications for ADL. 3=Patient will improve strength/tolerance for activity to enable patient to perform ADL's. OT Blender/Braze Applicator Goals Halfway Goals Time Frame: Mar 31, 2016 Eating (FIM): 6 (met ) Eating (QC): 6 (met 04/08/16) Groomin (met04/08/16) Oral Hygiene (QC): 6 (6-MET) Bathing(FIM): 5 (Met 04/08/16) Shower/Bathe Self (QC): 4 (5-exceeded) Upper Body Dressing(FIM): 6 (met 04/08/16) Upper Body Dressing (QC): 6 (6-MET) Lower Body Dressing(FIM): 5 (Met 04/08/16) Lower Body Dressing (QC): 4 (4-MET) On/Off Footwear (QC): 5 (5-MET) Toileting(FIM): 5 (Met 04/08/16) Toileting Hygiene (QC): 4 (4-MET) Toilet/Commode Transfer(FIM): 5 (Met 04/08/16) Toilet/Commode Transfer (QC): 4 (4-MET) Shower Transfer(FIM): 4 (Met-CGA) Additional Goals: 1-Demonstrate ADL Tasks, 2-Verbalize Understanding, 3- ImproveStrength/Mahad 1=Demonstrate adherence to instructed precautions during ADL tasks. 2=Patient will verbalize/demonstrate understanding of assistive devices/ modifications for ADL. 3=Patient will improve strength/tolerance for activity to enable patient to perform ADL's. OT Education/Plan Problem List/Assessment Pt demonstrates decreased mobility, strength, activity tolerance, and ADL performance. Pt to benefit from skilled OT intervention for ADL training, transfers, strengthening, adaptive equipment training as needed, and home safety education to maximize level of function and allow safe discharge. Discharge Recommendations Plan/Recommendations: Continue POC Treatment Plan/Plan of Care Patient would benefit from OT for education, treatment and training to promote independence in ADL's, mobility, safety and/or upper extremity function for ADL' s. Plan of Care: ADL Retraining, Functional Mobility, Group Exercise/Act as Ind, UE Funct Exercise/Act Treatment Duration: Mar 31, 2016 Visits Per Week: 10-11 Minutes/Day (M-F): 60-90 Minutes/Day (Sat/[place]): PRN Agreement: Yes Rehab Potential: Fair Time/GCodes Start Time: 11:33 Stop Time: 12:03 Total Time Billed (hr/min): 30 Billed Treatment Time 1 visit, ADLx2(30minutes) OLIVIA NELSON OT Apr 08, 2016 14:15
--- NOTE | 2016-04-08 14:30 | Physical Therapy Daily Note ---
PT Daily Note-Current Subjective Patient in wheelchair pre tx, agrees to PT. Has some minor pain medial to scapula on left side 04/01. Appearance Patient in wheelchair post tx at bedside, has nurse call, phone, tray, all needs met. Mental Status Patient Orientation: Normal For Age Transfers Functional [place] Measure 0=Not Assessed/NA 4=Minimal Assistance 1=Total Assistance 5=Supervision or Setup 2=Maximal Assistance 6=Modified [place] 3=Moderate Assistance 7=Complete IndependenceIRFPAI Quality Coding Scale 6 Independent with activity with or without an assistive device 5 Patient requires set up or clean up by helper. Patient completes activity by themselves 4 Supervision or touching assist (CGA). [place] provide cues , steadying assist 3 The helper provides less than half the effort to complete the activity 2 The helper provides more than half the effort to complete the activity 1 Dependent. The helper does all the effort to complete an activity 7 Patient refused to complete or attempt activity 9 The patient did not perform the activity before the current illness or injury 88 Not attempted due to Medical conditions or safety concerns Transfers (B, C, W/C) (FIM): 5 Sit to/from Stand: 5 Bed to/from Chair: 5 occasional cues for hand placement Gait Training Gait (FIM): 1 Distance: 25'x3 Gait Level of Assist: 4 (CGA) Gait Persons Needed: 1 Gait Assistive Device: FWW Treatments transfers, ambulation Assessment Current Status: Fair Progress improving strength/endurance PT Short Term Goals Short Term Goals Time Frame: Mar 17, 2016 Gait (FIM): 1 Gait Distance Comment: 10' Gait Level of Assist: 4 Gait Assistive Device: FWW Wheelchair Distance: 150'x2 PT Longterm Goals Loss Control Manager Goals PT Longterm Goals Time Frame: Mar 31, 2016 Transfers (B,C,W/C) (FIM): 5 (met) Sit to Lying (QC): 4 (met) Lying-Sitting on Side/Bed(QC): 4 (met) Sit to Stand (QC): 4 (met) Rollin (met) Roll Left to Right (QC): 4 (met) Chair/Rbv-wd-[place] Xfer(QC): 4 (met) Car Transfer (QC): 4 Gait (FIM): 1 (met) Distance: 20' Walk 10 feet (QC): 4 (met) Walk 10ft-Uneven Surface(QC): 4 (met) Walk 50ft with 2 Turns (QC): 88 Walk 150 ft (QC): 88 Gait Level of Assist: 5 Gait Assistive Device: FWW Wheelchair (FIM): 6 (met) Distance: 150' Wheelchair Level of Assist: 6 Wheel 50 feet with 2 turns (QC: 6 (met) Stairs (FIM): 2 # of Steps: 4 1 Step (curb) (QC): 4 4 Steps (QC): 4 12 Steps (QC): 88 Stairs Level Of Assist: 4 Picking up an Object (QC): 88 PT Plan Problem List Problem List: Activity Tolerance, Functional Strength, Safety, Balance, Gait, Transfer, Bed Mobility, ROM Treatment/Plan Treatment Plan: Continue Plan of Care Treatment Plan: Bed Mobility, Education, Functional Activity Mahad, Functional Strength, Group Therapy, Gait, Safety, Therapeutic Exercise, Transfers Treatment Duration: Mar 31, 2016 Visits Per Week: 10-11 Minutes/Day (M-F): 60-90 Minutes/Day (Sat/[place]): 15-30 Safety Risks/Education Patient Education: Gait Training, Transfer Techniques, Safety Issues Teaching Recipient: Patient Teaching Methods: Demonstration, Discussion Response to Teaching: Reinforcement Needed Time/GCodes Time In: 1400 Time Out: 1430 Total Billed Treatment Time: 30 Total Billed Treatment 1 visit GT 30 min GEM DANIELSON PT Apr 08, 2016 14:30
[2016-04-08 18:40] VITALS: BP 114/72
[2016-04-08] MEDS: ATORVASTATIN 40 MG (LIPITOR) TABLET PO SCH (19:55)
[2016-04-08] MEDS: ENOXAPARIN 40 MG/0.4 ML (LOVENOX) SYR SC SCH (19:55)
[2016-04-08] MEDS: DICLOFENAC 1% GEL 100 GM (VOLTAREN) TUBE TOP PRN (19:55)
[2016-04-08] MEDS: inSUlin DETERMIR 1 UNIT/0.01 ML (LEVEMIR) CHARGE PER UNIT SQ SCH (21:46)
[2016-04-08] MEDS: ALPRAZolam 0.5 MG (XANAX) TAB PO PRN (21:46)
[2016-04-09 05:03] VITALS: BP 117/74
[2016-04-09] MEDS: inSUlin (REGULAR) HUMAN 1 UNIT/0.01 ML (CHARGE PER UNIT) SC SCH (06:00)
[2016-04-09] MEDS: DULoxetine 30 MG (CYMBALTA) CAP PO SCH (08:53)
[2016-04-09] MEDS: ASPIRIN E.C. 81 MG (ECOTRIN) TAB PO SCH (08:53)
[2016-04-09] MEDS: DILTIAZEM 120 MG (CARDIZEM CD) CAP PO SCH (08:53)
[2016-04-09] MEDS: GABAPENTIN 600 MG (NEURONTIN) TAB PO SCH (08:53)
[2016-04-09] MEDS: CLOPIDOGREL 75 MG (PLAVIX) TABLET PO SCH (08:53)
[2016-04-09] MEDS: oxyCODONE/APAP 5/325MG (PERCOCET 5) TABLET PO PRN (08:54)
[2016-04-09 10:30] VITALS: BP 117/74
--- NOTE | 2016-04-11 09:22 | Therapy Team Discharge Summary ---
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 Upon admission, she required mod assist with transfers, was only able to hop a few hops on the right LE using a FWW and was SBA with wheelchair mobility. Treatment consisted of functional LE strengthening to progress functional transfers and hopping mobility. Transfers, gait and wheelchair mobility addressed as well. She made functional gains, refer to goals for met and unmet goals. Pt to discharge home with her spouse with continued medical services to follow at home. DC PT from this facility at this time. PT [facility] Goals [facility] Goals PT Service Greeter Goals Time Frame: Mar 31, 2016 Transfers (B,C,W/C) (FIM): 5 (met) Roll Left to Right (QC): 4 (met) Sit to Lying (QC): 4 (met) Lying-Sitting on Side/Bed(QC): 4 (met) Sit to Stand (QC): 4 (met) Chair/Xwz-pc-Mtdyq Xfer(QC): 4 (met) Car Transfer (QC): 4 Gait (FIM): 1 (met) Distance: 20' Walk 10 feet (QC): 4 (met) Walk 10ft-Uneven Surface(QC): 4 (met) Walk 50ft with 2 Turns (QC): 88 Walk 150 ft (QC): 88 Gait Level of Assist: 5 Gait Assistive Device: FWW Wheelchair (FIM): 6 (met) Distance: 150' Wheelchair Level of Assist: 6 Wheel 50 feet with 2 turns (QC: 6 (met) Stairs (FIM): 2 # of Steps: 4 1 Step (curb) (QC): 4 4 Steps (QC): 4 12 Steps (QC): 88 Stairs Level Of Assist: 4 Picking up an Object (QC): 88 OT [facility] Goals Service Greeter Goals Time Frame: Mar 31, 2016 Eating (FIM): 6 (met ) Eating (QC): 6 (met 04/08/16) Oral Hygiene (QC): 6 (6-MET) Grooming(FIM): 6 (met04/08/16) Bathing(FIM): 5 (Met 04/08/16) Shower/Bathe Self (QC): 4 (5-exceeded) Upper Body Dressing(FIM): 6 (met 04/08/16) Upper Body Dressing (QC): 6 (6-MET) Lower Body Dressing(FIM): 5 (Met 04/08/16) Lower Body Dressing (QC): 4 (4-MET) On/Off Footwear (QC): 5 (5-MET) Toileting(FIM): 5 (Met 04/08/16) Toileting Hygiene (QC): 4 (4-MET) Toilet/Commode Transfer(FIM): 5 (Met 04/08/16) Toilet/Commode Transfer (QC): 4 (4-MET) Shower Transfer(FIM): 4 (Met-CGA) Additional Goals: 1-Demonstrate ADL Tasks, 2-Verbalize Understanding, 3- ImproveStrength/Mahad 1=Demonstrate adherence to instructed precautions during ADL tasks. 2=Patient will verbalize/demonstrate understanding of assistive devices/ modifications for ADL. 3=Patient will improve strength/tolerance for activity to enable patient to perform ADL's. ANA MOODY PT Apr 11, 2016 09:22
--- NOTE | 2016-04-11 13:25 | Therapy Team Discharge Summary ---
Therapy Discharge Summary Discharge Recommendations Date of Discharge Apr 09, 2016 at 15:02 Therapy D/C Recommendations: Home w/ Family Support Occupational Therapy Pt admitted to ARU following left BKA. On admission pt required maximal assistance for toilet transfer, total assist for toileting and LE dressing, and SBA for grooming and UE dressing. Skilled OT intervention focused on ADL training, transfers, strengthening, equipment training, and home safety education. Pt progressed with therapy and by discharge is completing feeding, grooming, and UE dressing with modified independence at w/c level. Pt is able to complete BSC transfer, toileting, bathing, and LE dressing with SBA. CGA required for shower transfer. Pt met OT LTG. Pt has w/c, FWW, shower bench, bath cane, and toilet riser for home use. Pt discharged home with spouse. DC ARU OT at this time. PT Copra Processor Goals Copra Processor Goals PT [facility]itentiary Goals Time Frame: Mar 31, 2016 Transfers (B,C,W/C) (FIM): 5 (met) Roll Left to Right (QC): 4 (met) Sit to Lying (QC): 4 (met) Lying-Sitting on Side/Bed(QC): 4 (met) Sit to Stand (QC): 4 (met) Chair/Adl-me-Bhtjk Xfer(QC): 4 (met) Car Transfer (QC): 4 Gait (FIM): 1 (met) Distance: 20' Walk 10 feet (QC): 4 (met) Walk 10ft-Uneven Surface(QC): 4 (met) Walk 50ft with 2 Turns (QC): 88 Walk 150 ft (QC): 88 Gait Level of Assist: 5 Gait Assistive Device: FWW Wheelchair (FIM): 6 (met) Distance: 150' Wheelchair Level of Assist: 6 Wheel 50 feet with 2 turns (QC: 6 (met) Stairs (FIM): 2 # of Steps: 4 1 Step (curb) (QC): 4 4 Steps (QC): 4 12 Steps (QC): 88 Stairs Level Of Assist: 4 Picking up an Object (QC): 88 OT Penitentiary Goals Penitentiary Goals Time Frame: Mar 31, 2016 Eating (FIM): 6 (met ) Eating (QC): 6 (met 04/08/16) Oral Hygiene (QC): 6 (6-MET) Grooming(FIM): 6 (met/) Bathing(FIM): 5 (Met 04/08/16) Shower/Bathe Self (QC): 4 (5-exceeded) Upper Body Dressing(FIM): 6 (met 04/08/16) Upper Body Dressing (QC): 6 (6-MET) Lower Body Dressing(FIM): 5 (Met 04/08/16) Lower Body Dressing (QC): 4 (4-MET) On/Off Footwear (QC): 5 (5-MET) Toileting(FIM): 5 (Met 04/08/16) Toileting Hygiene (QC): 4 (4-MET) Toilet/Commode Transfer(FIM): 5 (Met 04/08/16) Toilet/Commode Transfer (QC): 4 (4-MET) Shower Transfer(FIM): 4 (Met-CGA) Additional Goals: 1-Demonstrate ADL Tasks, 2-Verbalize Understanding, 3- ImproveStrength/Mahad 1=Demonstrate adherence to instructed precautions during ADL tasks. 2=Patient will verbalize/demonstrate understanding of assistive devices/ modifications for ADL. 3=Patient will improve strength/tolerance for activity to enable patient to perform ADL's. OLIVIA NELSON OT Apr 11, 2016 13:25
--- NOTE | 2016-04-12 09:30 | Physical Therapy Progress Note ---
Therapy Progress Note This note is for 03/23/16, it had been cancelled and should still be a part of the medical record. Treatment provided by and note written by Yan Alves PTA. NAME:~ [facility] REC#:~~~~~ [id number] ACCOUNT#:~~~~~ [id number] PHYSICIAN:~~~~~ MARINO ALVES OIL EXPELLER PT Daily Note-Current Subjective Pt. states she did not have a good night,"had issues with her " did not elaborate.~ Requests up on [facility] for BM.~ States no pain. Pain ~~ Numeric Pain Scale:~ 0-No Pain Appearance appears tired, a little groggy Mental Status Patient Orientation:~ Normal For Age Transfers ~~~~~~~~~~~~~ Functional [place] Measure 0=Not Assessed/NA~~~~~ 4=Minimal Assistance 1=Total Assistance~~~~~~~ 5=Supervision or Setup 2=Maximal Assistance~~ 6=Modified [place] 3=Moderate Assistance 7=Complete IndependenceIRFPAI Quality Coding Scale 6~~~~~~~~~ Independent with activity with or without an assistive device 5 ~~~~~~~~ Patient requires set up or clean up by helper.~ Patient completes activity~ by~ themselves 4~~~~~~~~~ Supervision or touching assist (CGA). [place] provide cues , steadying assist 3~~~~~~~~~ The helper provides less than half the effort to complete the activity 2~~~~~~~~~ The helper provides more than half the effort to complete the activity 1~~~~~~~~~ Dependent.~ The helper does all the effort to complete an activity 7~~~~~~~~~ Patient refused to complete or attempt activity 9~~~~~~~~~ The patient did not perform the activity before the current illness or injury 88~~~~~~~~ Not attempted due to Medical conditions or safety concerns Transfers (B, C, W/C) (FIM):~ 4 Scooting:~ 6 Rolling:~ 6 Supine to/from Sit:~ 6 Sit to/from Stand:~ 4 Bed to/from Chair:~ 4 pt. requires CGA for all TRFs sit to stand and SPT Gait Training Does the Patient Walk?:~ Yes Gait (FIM):~ 1 Distance (FIM):~ 1=up to 49 ft (8ftx2) Gait Level of Assist:~ 4 Gait Persons Needed:~ 1 Gait Assistive Device:~ FWW pt. with shoe on right foot, better control demonstrated with hops , w/c to f/u and CGA, pt. does fatigue but is very happy with her progress Wheelchair Training Does the Pt Use a Wheelchair?:~ Yes Wheelchair (FIM):~ 2 Wheelchair Distance:~ 6=565-14 ft (50ft,20ft) Wheelchair Level of Assist:~ 5 Type of Wheelchair:~ Manual manages well in confined space in out doors etc. Exercises Supine Ex:~ Bridging, Ankle pumps (HC stretch 4x20s), Quad Set, Rolling, Glut sets, Heel Slides, Short Arc Quads, Scooting, Straight leg raise, Hip abd/add Supine Reps:~ 15 sidelying and prone hip abd and ext x 12 Treatments toileted with min assist to manage pants up down, pt cleans self indep Assessment Current Status:~ Good Progress increased gait skills PT Short Term Goals Short Term Goals Time Frame:~ Mar 17, 2016 Gait (FIM):~ 1 Gait Distance Comment:~ 10' Gait Level of Assist:~ 4 Gait Assistive Device:~ FWW Wheelchair Distance:~ 150' PT Compressor Battery Pellets Goals Compressor Battery Pellets Goals PT [facility] Goals Time Frame:~ Mar 31, 2016 Transfers (B,C,W/C) (FIM):~ 5 Sit to Lying (QC):~ 4 Lying-Sitting on Side/Bed(QC):~ 4 Sit to Stand (QC):~ 4 Rolling:~ 6 Roll Left to Right (QC):~ 4 Chair/Pdp-xj-Fumti Xfer(QC):~ 4 Car Transfer (QC):~ 4 Gait (FIM):~ 1 Distance:~ 20' Walk 10 feet (QC):~ 4 Walk 10ft-Uneven Surface(QC):~ 4 Walk 50ft with 2 Turns (QC):~ 88 Walk 150 ft (QC):~ 88 Gait Level of Assist:~ 5 Gait Assistive Device:~ FWW Wheelchair (FIM):~ 6 Distance:~ 150' Wheelchair Level of Assist:~ 6 Wheel 50 feet with 2 turns (QC:~ 6 Stairs (FIM):~ 2 # of Steps:~ 4 1 Step (curb) (QC):~ 4 4 Steps (QC):~ 4 12 Steps (QC):~ 88 Stairs Level Of Assist:~ 4 Picking up an Object (QC):~ 88 PT Plan Treatment/Plan Treatment Plan:~ Continue Plan of Care Treatment Plan:~ Bed Mobility, Education, Functional Activity Mahad, Functional Strength, Group Therapy, Gait, Safety, Therapeutic Exercise, Transfers Treatment Duration:~ Mar 31, 2016 Visits Per Week:~ 10-11 Minutes/Day (M-F):~ 60-90 Minutes/Day (Sat/[place]): ~15-30 Safety Risks/Education Patient Education:~ Gait Training, Transfer Techniques, Issued Written HEP, Correct Positioning, W/C Management, Disease Process, Safety Issues Teaching Recipient:~ Patient Teaching Methods:~ Demonstration, Discussion Response to Teaching:~ Verbalize Understanding, Return Demonstration, Reinforcement Needed Time/GCodes Time In:~ 700 Time Out:~ 800 Total Billed Treatment Time:~ 60 Total Billed Treatment 1,EX25,FA20,GT15 G Codes Necessary:~ No MARINO ALVES OIL EXPELLER~ Mar 23, 2016 08:01 <Created by MARINO ALVES OIL EXPELLER> ANA MOODY PT Apr 12, 2016 09:30
--- NOTE | 2016-04-21 11:22 | DISCHARGE SUMMARY ---
DATE OF ADMISSION: 03/09/2016 DATE OF DISCHARGE: 04/09/2016 HISTORY OF PRESENT ILLNESS: The patient is a 55-year-old disabled female who lives with her spouse in [place], [place] with history of peripheral vascular disease, chronic kidney disease and insulin-dependent diabetes mellitus, who was admitted to [facility] on 02/19/16 for treatment of C. diff. colitis. She was originally admitted to [facility] earlier in January with septic shock and gangrenous cellulitis of left foot requiring a left BKA.. She was then transfered to a detention in her home community with Alexander catheter still in place. Once readmitted to [facility], she was placed on oral metronidazole and she became afebrile. Bacteremia with Streptococcus was noted without any signs of underlying infectious source, cystitis with E. coli secondary to Alexander catheter and was asymptomatic. The patient was followed by infectious disease as well as hospitalist service. The patient was then referred to Inpatient Rehabilitation Unit at [facility] for ongoing amputee rehabilitation. She is to continue on another 10 day course of p.o. Flagyl. She was still having some loose stools, reported continent of bladder. She complains of her right leg giving out at times which has been for the past 2 years. 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 She lives with her spouse in [place], [place]. PAST MEDICAL HISTORY: 1. Insulin-dependent diabetes mellitus. 2. C. diff. bowel colitis as per above. 3. Depression. 4. Hypertension. 5. She reports minimal phantom limb pain. Minimal residual limb pain. She is utilizing tramadol Percocet for pain control, gabapentin for neuropathic pain. 6. She has also had a tonsillectomy and in the past. MEDICAL COURSE: The patient was followed by Dr. Mckenzie and [facility] while on rehab unit. She had ongoing complaints of loose stools and after completion of a course of Flagyl, her stool came back positive again. She had a course of vancomycin with good results and symptomatic relief with good formed stools with continence of bowel and bladder. She had decreased pain. She was followed by Dr. Darden for a pressure sore on the back and also the right and left knee. These were all healing well and will follow-up in the [facility] with Dr. Darden. The actual BKA incision site had healed well. She tore one of her toenails when she caught it on a blanket and she was seen by Dr. Mas, home aid. The patient had debridement of the loose toenail with cleaning of the nail bed, dressing was applied on 03/28, it was the 3rd right toenail. Also noted with diabetic neuropathy, onychomycosis, and the above onycholysis due to trauma due to right 3rd toe. The patient was seen by Dr. Barrios as well, cardiology, regarding the episode of hypotension. Medications were adjusted. Chronic renal insufficiency was monitored, labs. There was an episode of paroxysmal atrial fibrillation noted at an outside facility, had none here. Dr. Barrios recommended to continue to monitor. The patient is maintained on Lipitor for her hyperlipidemia, diabetes mellitus, Accu-Cheks were monitored, medications continued. The patient did have noninvasive vascular study with Dr. Julia sutton. It revealed moderately decreased ROSIE on the right side. The patient went on to have catheterization via the left groin, left femoral artery, noted was abdominal aortogram showed mild atherosclerotic disease. No significant disease. Left lower extremity runoffs, the left SFA had severe stenosis at multiple segments. The right lower extremity angiogram show multiple areas of moderate disease in the SFA, popliteal artery had severe stenosis in 1 segment. The tibial peroneal trunk had severe disease. The anterior tibial artery had multiple segments of severe stenosis. Dr. Barrios recommended to continuing maximizing medical care and consider staging her for drug-coated balloon angioplasty to the right popliteal artery and tibial peroneal artery on an outpatient basis. The patient was counseled to continue with smoking cessation. Once discharged. She did not appear to be on board for that unfortunately. The patient also had an echocardiogram on 03/[address] aBrrios. The conclusion was mild left ventricular hypertrophy noted diffusely. Normal systolic function with an estimated ejection fraction of 60%, diastolic dysfunction was suggested by Doppler also mild annular calcification and aortic valve sclerosis. No aortic stenosis. Mild tricuspid regurgitation. Estimated pulmonary artery pressure of 35 mmHg. The patient's pain in the right foot improved, status post treatment with Dr. Mas and medical treatment with Dr. Barrios and further interventional procedure not being necessary at this time and can be done on an outpatient basis. The patient's CBC on 04/01 showed hemoglobin and hematocrit 10.9/34, platelet count 393,000, WBC 8.5. Chemistry on 04/08 showed sodium mildly low at 134, CO2 18, BUN 23, stable creatinine 1.24, blood glucose 206, calcium 8.7, albumin 3.1 on 03/10. UA was abnormal on 03/28. Glucometer readings from 04/08 to 04/09 varied between 187 and 264. Urine culture on 03/24 showed pseudomonas aeruginosa and yeast species. On 03/31 it showed mixed gram-positive chio, less than 10,000 per field. Urine culture 03/19 showed Klebsiella pneumonia and C. diff. was positive of 03/10. The patient continued on a carb consistent diet. She completed the course of Keflex, doxycycline and vancomycin with good results for treatment of UTI and C. diff. bowel colitis. She continued on her antidepressant and insulin. REHABILITATION COURSE: She was assessed by speech therapy upon admission and found to cognitively intact and they signed off. The patient was assessed by PT upon admission and they noted on admission, she required mod assist for transfers, was only able to hop a few hops on the right lower extremity using a front wheel walker with standby assist with wheelchair mobility. She made functional gains and upon discharge. She was min assist for transfers. Standby assist for ambulation short distances with a front wheeled walker. Modified independent for wheelchair mobility. OT notes upon admission, she required max assist for toilet transfers. Total assist for toileting lower body dressing. Standby assist for grooming, and upper body dressing. She progressed with therapies and by discharge was completing feeding, grooming, and upper body dressing with modified independence at the wheelchair level. She is able to complete bedside commode, transfers, toileting, bathing, and lower body dressing with standby assist. She is contact guard for shower transfers. The patient has wheelchair, front wheel walker, shower bench, grab cane, and toilet riser for home use. DISCHARGE INSTRUCTIONS: The patient is continue with a carb consistent diet and Accu-Cheks as per home regimen. Follow-up with her new PCP, Dr. Laura robledo [place] and Dr. Darden, front end specialist. She will have home health services as well. She is nonweightbearing left lower extremity. DISCHARGE MEDICATIONS: 1. Xanax 0.5 mg p.o. t.i.d. p.r.n. anxiety. 2. ASA 81 mg p.o. daily. 3. Plavix 75 mg p.o. daily. 4. Diltiazem 24-hour 120 mg p.o. daily. 5. Percocet generic 5/325, 1 tablet p.o. q.4 hours p.r.n. severe pain. 6. Silvadene cream apply topically to affected area daily. 7. Butt cream topically as needed for wound care. 8. Tylenol 650 mg p.o. q.4 hours p.r.n. pain. 9. Calcium carbonate 750 mg p.o. b.i.d. 10. Celexa 20 mg p.o. daily. 11. Cymbalta 30 mg p.o. daily. 12. Gabapentin 600 mg p.o. t.i.d. 13. Isopto Tears 1 to 2 drops both eyes q.4 h. p.r.n. dry eyes. 14. Levemir insulin 10 units subcutaneous in the evening. 15. Humalog insulin subcutaneous before meals and at bedtime as per home regimen. 16. Amitiza 24 mcg p.o. b.i.d. 17. Preparation H ointment p.r.n. for hemorrhoidal pain. 18. Pravastatin 20 mg p.o. at bedtime. 19. Senokot 2 tablets p.o. b.i.d. DISCHARGE DIAGNOSES: 1. Rehabilitation ambulatory dysfunction secondary to peripheral vascular disease with resulting gangrene, left lower extremity, status post BKA, outside [facility], [place], [place], on the left. 2. Pressure ulcer, sacral stage III, improving, Dr. Darden. 3. Cystitis due to Alexander, E. coli treated. 4. C. diff. bowel colitis, treated. 5. Pressure ulcer, left knee, stage II improved. Dr. Darden following. 6. Hypertension with CKD. 7. Diabetes mellitus, type 2 with insulin use dependence. 8. Paroxysmal atrial fibrillation, controlled at this point. 9. Depression, controlled. 10. Anxiety, controlled. 11. Hypokalemia corrected. 12. Postoperative anemia, improving. 13. Tobaccoism, currently abstaining. 14. Episode of hypotension resolved with adjustment in medications and IV fluids. 15. Hypovolemia, resolved with IV fluids. 16. Hyperlipidemia, on statin. 17. Cystitis due to Alexander, E. coli. 18. Diabetes mellitus 2 with insulin dependence. 19. UTI, treated. 20. Hypoalbuminemia. 21. Status post echocardiogram with results as per above. 22. Status post abdominal aortogram and angiogram of lower extremities revealing severe peripheral vascular disease. 23. Status post debridement of right 3rd loose toenail due to onycholysis due to trauma. 24. Onychomycosis toenails, treated. 25. Diabetic peripheral neuropathy. CONDITION AT DISCHARGE: Improved and stable. PROGNOSIS: Rehab prognosis appears good for some continued improvement at home with ongoing outpatient wound care and medical care with her new physician. Hopefully she will continue to abstain from tobacco use. She should eventually become a good prosthetic candidate. We will have follow-up with her surgeon regarding that. Job ID: [id number] Dictated Date: 04/19/2016 15:02:15 Drapery Hemmer Automatic Date: 04/21/2016 10:21:57/verito GEE
== END 2016-04-09 15:02 | disposition home health service (06) | DRG 559 ==
PROVIDERS: ADMIT Physical Medicine & Rehabilitation; ATTEND Physical Medicine & Rehabilitation
DX: Z47.81 Encounter for orthopedic aftercare following surgical amputation (principal); Z89.512 Acquired absence of left leg below knee; I73.9 Peripheral vascular disease, unspecified; L89.153 Pressure ulcer of sacral region, stage 3; T83.511A Infection and inflammatory reaction due to indwelling urethral catheter, initial encounter; N30.90 Cystitis, unspecified without hematuria; A04.7 Enterocolitis due to Clostridium difficile; L89.892 Pressure ulcer of other site, stage 2; N39.0 Urinary tract infection, site not specified; I12.9 Hypertensive chronic kidney disease with stage 1 through stage 4 chronic kidney disease, or unspecified chronic kidney disease; N18.9 Chronic kidney disease, unspecified; E11.9 Type 2 diabetes mellitus without complications; I48.0 Paroxysmal atrial fibrillation; F32.9 Major depressive disorder, single episode, unspecified; F41.9 Anxiety disorder, unspecified; E87.6 Hypokalemia; D64.9 Anemia, unspecified; F17.210 Nicotine dependence, cigarettes, uncomplicated; I95.9 Hypotension, unspecified; E86.1 Hypovolemia; E78.5 Hyperlipidemia, unspecified; B96.20 Unspecified Escherichia coli [E. coli] as the cause of diseases classified elsewhere; Z79.4 Long term (current) use of insulin
CPT/HCPCS: 36415; 80048; 80053; 81000; 82962; 83735; 85007; 85025; 85027; 85610; 85730; 87077; 87088; 87186; 87324; 87449; 93005; 93306; 93880; 93922; 93926

== ENCOUNTER 2016-03-31 14:00 | Day surgery (SDC) | payer MEDICAID ==
[2016-03-31] VITALS (9 sets, daily range): BP systolic 126–143; BP diastolic 78–91
[~2016-03-31 14:00] MED LIST: ACET325T38 PO; ALPR0.5T PO; BALS60OI TP; CALC-938 PO; CITA20TA7 PO; DILT30TA PO; DULO30CA3 PO; GABA-488 PO; HYPR15DR6 OU; INSU100V SQ; INSU100V5 SQ; LISI10TA2 PO; LUBI24CA6 PO; MENT6OIN2 TP; OXYC-471 PO; PHEN28OI6 RC; POLY17PO6 PO; PRAV20TA3 PO; SENN-36 PO; TRAM50TA2 PO
[2016-03-31] MEDS ORDERED: NS IV 1000 ML 1,000 ML IV SCH (16:41)
[2016-03-31] MEDS ORDERED: PATIENT MAY USE OWN MEDS, ALL MC SCH (16:45)
[2016-03-31] MEDS ORDERED: CATHETER FLUSH 10 ML SYR IV PRN (17:00)
--- NOTE | 2016-04-03 06:30 | PROCEDURE REPORT ---
PROCEDURE PHYSICIAN: MILADY SHANNON DATE OF PROCEDURE: 03/31/2016 REFERRING PHYSICIAN: Dr. Mckenzie and Dr. Christina BRIEF HISTORY: Mrs. Merchant is a 55-year-old lady with peripheral arterial disease, underwent left BKA. She has been having pain in her right lower extremity, abnormal ROSIE. I decided to proceed with peripheral angiogram. She has underlying renal insufficiency. She was hydrated aggressively and we proceed with the procedure today. PROCEDURE NOTE: After explaining the procedure to the patient, all pros and cons were explained. All questions were answered. The patient signed a consent, then she was placed on the cardiac catheterization laboratory. The left groin was prepped in a sterile fashion. Local anesthesia applied to the left groin. 6-Kittitian sheath was placed in the left femoral artery. Runoff of the left lower extremity was done through the sheath, then a pigtail catheter advanced to the abdominal aorta. Abdominal aortogram was done and evaluation of the bifurcation. Then I advanced a Storq wire through the pigtail to the right leg and a pigtail was advanced to the iliac artery. Runoff of the right lower extremity was done. Then I proceeded with advancement of a Storq wire, down to the SFA and exchanged the pigtail catheter to straight catheter placed in the mid SFA. Angiogram to the popliteal artery was done. Then a second angiogram was done to evaluate the trifurcation. Then angiogram was done to evaluate the foot. At the end of the procedure, the catheter was removed. Mynx device deployed. Hemostasis achieved. FINDINGS: 1. Abdominal aortogram showed mild atherosclerotic disease. No significant disease. 2. Left lower extremity runoff: The patient had left BKA. The left SFA had severe stenosis at multiple segments. 3. Right lower extremity: The right lower extremity angiogram showed multiple areas of moderate disease in the SFA. The popliteal artery has severe stenosis at one segment. The tibioperoneal trunk has severe disease. The anterior tibial artery has multiple segments of severe stenosis, (s/l to which) a runoff brisk down to the ankle. CONCLUSION: 1. Severe stenosis at multiple segment of the left SFA. Conservative management is recommended unless the stump has poor healing; I will consider angioplasty to the left SFA. 2. Moderate disease in the right SFA. The popliteal artery right at the knee area has severe stenosis that require angioplasty, probably drug coated balloon. Tibioperoneal artery has an area of significant stenosis which is amendable to balloon angioplasty and the anterior tibial artery has multiple segments of severe stenosis, fairly small artery. 3. Abdominal aortogram has mild to moderate atherosclerotic disease. DISCUSSION AND RECOMMENDATION: Continue maximizing medical therapy. I will consider staging her for drug coated balloon angioplasty to the right popliteal artery and tibioperoneal artery. Job ID: [id number] Dictated Date: 03/31/2016 14:25:05 Assistant Clinical Director Date: 04/03/2016 06:18:13 / mona
[2016-04-08] MEDS ORDERED: ASPI-983 PO (10:33)
[2016-04-08] MEDS ORDERED: SILV20CR14 TOP (10:33)
[2016-04-08] MEDS ORDERED: CLOP75TA28 PO (10:33)
[2016-04-08] MEDS ORDERED: DILT120C63 PO (10:33)
[2016-04-08] MEDS ORDERED: OXYC-471 PO (10:33)
[2016-04-08] MEDS ORDERED: ZINC28PA TOP (10:33)
[2016-04-08] MEDS ORDERED: ALPR0.5T7 PO (10:33)
== END 2016-03-31 18:30 ==
LOC: CSD 14:00 → CATH 14:00
PROVIDERS: ATTEND Internal Medicine Cardiovascular Disease
DX: I70.211 Atherosclerosis of native arteries of extremities with intermittent claudication, right leg (principal); I48.0 Paroxysmal atrial fibrillation; N18.9 Chronic kidney disease, unspecified; E11.22 Type 2 diabetes mellitus with diabetic chronic kidney disease; I95.9 Hypotension, unspecified; F41.8 Other specified anxiety disorders; E78.5 Hyperlipidemia, unspecified; I70.0 Atherosclerosis of aorta; Z72.0 Tobacco use; Z89.512 Acquired absence of left leg below knee
CPT/HCPCS: 36247; 75625; 75716; 75774

== ENCOUNTER 2017-08-22 13:33 | Inpatient (IN) | payer MEDICAID ==
[~2017-08-22] VITALS: Ht 167.6 cm; Wt 121.0 kg
[~2017-08-22 13:33] MED LIST changes: +ALPR0.5T7 PO; +ASPI-983 PO; -CITA20TA7 PO; +CITA20TA9 PO; +CLOP75TA28 PO; +DILT120C63 PO; +SILV20CR14 TOP; +ZINC28PA TOP
[2017-08-22 17:23] VITALS: BP 127/83
[2017-08-22] MEDS ORDERED: inSUlin ASPART (NovoLOG) 1 UNIT/0.01 ML (CHARGE PER UNIT) SC PRN (18:45)
--- NOTE | 2017-08-22 18:50 | PM&R Post Admission Assessment ---
Post Admission Physician Asses Date seen by provider: Aug 22, 2017 Time seen by provider: 18:30 Admisison Dx: (1) Renal failure (ARF), acute on chronic Status: Acute The preadmission screen agrees with the post admission assessment that the patient is a good candidate for inpatient rehabilitation. The patient will have a comprehensive program of inpatient rehabilitation with a goal of maximizing level of functional independence prior to discharge home with family. The patient will have PT/OT ninety minutes per day, each discipline, five days a week for 10 days for gait, strengthening, conditioning, balance, ADLs, any patient/family/caregiver training as necessary. Speech therapy to do cognitive assessment and treat as indicated. Rehabilitation nursing to assist with bowel, bladder, skin, wound care, medication administration, pain management. Compliance Testing Analyst to assist with discharge planning, community reentry. SCD's for DVT prophylaxis. She appears to be well motivated to participate in three hours of therapy a day. She should be able to tolerate three hours of therapy a day from a medical standpoint. She should benefit from the three hours of therapy a day. She has a reasonable discharge plan, reasonable discharge rehabilitation goals and a supportive family. She has various comorbidities that need to be closely monitored with medications and treatments adjusted on a daily basis as needed. These include: CHF Acute on chronic renal failure DM2 Left BKA Cellulitus rt leg Barriers to discharge for this patient who had been Modified independent prior to this are for her to be modified independent to supervision for ADLs and mobility skills prior to discharge home with spouse, so as to lessen the burden of the caregivers. Risks for this patient include: 1. Fall 2. Fracture 3. DVT 4. Pulmonary embolism 5. Wound infection 6. Skin breakdown 7. Contractures 8. Poorly controlled pain 9. Urinary retention 10. UTI 11. Respiratory infection 12. Aspiration 13.poorly controlled DM 14. Worsening Renal failure 15. Worsening CHF Estimated Length of Stay: 14 days Prognosis: Rehab prognosis appears good for goal of discharge home with family modified independent to supervision for ADLs and mobility skills. C code 16 Etiologic DX acute on chronic Renal failure General: Alert, Oriented X3, Cooperative, No Acute Distress HEENT: Atraumatic, PERRLA, EOMI, Mucous Memb Moist/[place]els[place] Neck: Supple, No JVD Lungs: Clear to Auscultation Heart: Regular Rate Abdomen: Normal Bowel Sounds, Soft, No Tenderness Extremities: Other (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 Mild rt cellulitis of the leg) Neuro: Other (generalized weakness) IRMA ESPINOZA MD Aug 22, 2017 18:50
--- NOTE | 2017-08-22 19:20 | HISTORY AND PHYSICAL ---
DATE OF SERVICE: 08/22/2017 CHIEF COMPLAINT: Generalized weakness. HISTORY OF PRESENT ILLNESS: The patient is a 56-year-old morbidly obese female with a past medical history significant for insulin-dependent diabetes mellitus type 2, hypertension, chronic atrial fibrillation who presented to the ED in [place], [place] with above history. She had increased edema in her right lower limb. She is status post left below the knee amputation for which she received rehabilitation at this facility in 2017. She was unable to wear her prosthesis recently leading to the increased edema. This was associated with dyspnea on exertion. The patient was followed by various specialists including nephrology and medications were adjusted. Labs were monitored. She is now stabilized and has been referred to inpatient rehabilitation unit [facility] for ongoing care. She had been modified independent for transfers and for wheelchair mobility prior to this and she did not always use her BKA prosthesis. She was followed by cardiology, nephrology and hospitalist service. Followup labs are to be done. The patient indicates that she uses gentamicin cream for her right lower limb cellulitis.She is min assist for transfers and gait in //Bars.She is Modified Independent for Upper body dressing and Mod assist for lower body dressing PAST MEDICAL HISTORY: Chronic diastolic congestive heart failure, szhlo-tx-sgtaqvf kidney disease, type 2 diabetes mellitus, atrial fibrillation, UTI, right lower limb cellulitis, obstructive sleep apnea, hypertension, post-ATN diuresis. PAST SURGICAL HISTORY: Left BKA. ALLERGIES: TETANUS TOXOID ABSORBED. FAMILY HISTORY: Noncontributory. SOCIAL HISTORY: Lives with her spouse in [place], [place]. REVIEW OF SYSTEMS: A 10-point review of systems significant for weakness and some pain in the right leg, some edema. MEDICATIONS: Eliquis 5 mg p.o. b.i.d., Keflex 500 mg p.o. t.i.d., PhosLo 1334 mg p.o. t.i.d. with meals, nicotine patch 7 mg topically daily, nystatin ointment topically b.i.d., Celexa 20 mg p.o. daily, Xanax 0.5 mg p.o. t.i.d. p.r.n. anxiety, Cymbalta 30 mg p.o. daily, Levemir insulin 50 units subQ b.i.d., Humalog insulin 30 units subQ q.i.d. p.r.n. blood sugar >150, Plavix 75 mg p.o. daily, Pravachol 40 mg p.o. daily, gabapentin 800 mg p.o. t.i.d., Coreg 12.5 mg p.o. b.i.d. PHYSICAL EXAMINATION: GENERAL: Significant for a pleasant female appearing her stated age, alert and oriented, sitting in chair in no acute distress with her left BKA prosthesis on in place. VITAL SIGNS: Blood pressure 127/83. She is afebrile, pulse 92, respirations 18, O2 sat 94% on room air. HEENT: Vision, speech, hearing grossly intact. No oral lesions noted. NECK: Supple without mass. HEART: Regular rhythm. CHEST: Clear. ABDOMEN: Soft, nontender. Bowel sounds present. EXTREMITIES: She has a left BKA prosthesis on in place. She has a trace edema, right ankle. No calf tenderness. MUSCULOSKELETAL: She has functional active range of motion in both upper limbs and right lower limb. NEUROLOGIC: Sensation is grossly intact to touch. Cognition grossly intact. Strength, she has a good strength both upper limbs at 4/5 and right lower limb, fair plus to good minus at left hip.She has flexion contracture left knee which limits her gait. IMPRESSION: 1. General debilitation secondary to fxdlu-rs-jmcpmjp kidney failure. 2. Type 2 diabetes mellitus, insulin-dependent. 3. Status post left below-knee amputation. 4. Cellulitis, right leg. 5. Escherichia coli urinary tract infection on antibiotics. 6. Obstructive sleep apnea. 7. Hypertension, controlled with medication. 8. Atrial fibrillation, controlled with medication. 9. Mmacn-yc-jeutfjw diastolic congestive heart failure, compensated. Cardiology adjusted medications. 10. Tobaccoism currently abstaining on Patch PLAN: The patient will have a comprehensive program of inpatient rehabilitation with goal of maximizing level of functional independence prior to discharge home with spouse. The patient will have PT, OT 90 minutes per day each discipline, 5 days a week for 14 days. Please see post-admission physician evaluation, which is separate document for details of plan of care. Rehabilitation nursing to assist with bowel, bladder, skin, wound care, medication administration, pain management. Speech therapy to do cognitive assessment and treat as indicated. Social service to assist with discharge planning, community reentry. We will ask Dr. Christina to follow this patient for any medical concerns. He has seen her in the past during her prior stay in 2017. Follow up labs as per nephrology and cardiology request.Accucheks as per above regimen and adjust meds as needed ESTIMATED LENGTH OF STAY: 14 days. PROGNOSIS: Rehab prognosis appears good for goal of discharging her home with spouse, modified independent to supervision for ADLs and mobility skills at the wheelchair level of function quite possibly with a wheeled walker as well for short distances. DIET: Renal carb consistent. CODE STATUS: Full code. Job ID: [id number] DocumentID: [id number] Dictated Date: 08/22/2017 18:40:15 [employer] Date: 08/22/2017 19:19:24 Dictated By: IRMA ESPINOZA MD MTDD
[2017-08-22] MEDS: GABAPENTIN 400 MG (NEURONTIN) CAP PO SCH (20:52)
[2017-08-22] MEDS: SIMvastatin 20 MG (ZOCOR) TAB PO SCH (20:52)
[2017-08-22] MEDS: APIXABAN 5 MG (ELIQUIS) TABLET PO SCH (20:52)
[2017-08-22] MEDS: AMIODARONE 200 MG (CORDARONE) TAB PO SCH (20:52)
[2017-08-22] MEDS: CARVEDILOL 3.125 MG (COREG) TABLET PO SCH (20:53)
[2017-08-22] MEDS: NYSTATIN CREAM (MYCOSTATIN) 30 GM TUBE TP SCH (20:56)
[2017-08-22] MEDS: inSUlin DETERMIR 1 UNIT/0.01 ML (LEVEMIR) CHARGE PER UNIT SQ SCH (20:56)
[2017-08-22] MEDS: GENTAMICIN 0.1% CREAM TP SCH (20:58)
[2017-08-22] MEDS ORDERED: CEPHALEXIN 250 MG (KEFLEX) CAP PO SCH (21:00)
[2017-08-22] MEDS: inSUlin ASPART (NovoLOG) 1 UNIT/0.01 ML (CHARGE PER UNIT) SC SCH (21:00)
[2017-08-23] MEDS: inSUlin ASPART (NovoLOG) 1 UNIT/0.01 ML (CHARGE PER UNIT) SC SCH ×4 (06:00→22:27)
[2017-08-23] MEDS: CALCIUM ACETATE 667 MG CAP (PHOSLO) PO SCH ×3 (06:55→17:08)
--- NOTE | 2017-08-23 08:25 | PM & R (SOAP) Progress Note ---
Subjective This was a face to face visit with the patient. Date Seen by Provider: Aug 23, 2017 Time Seen by Provider: 07:45 Subjective/Events-last exam Patient was seen in her room this AM Therapy evals pending Adjusting well to unit Discussed case with RN Objective Physician Exam Last Set of Vital Signs Vital Signs Date Time Temp Pulse Resp B/P (MAP) Pulse Ox O2 Delivery O2 Flow Rate FiO2 08/22/17 21:00 94 Room Air 08/22/17 17:23 96.6 92 18 127/83 (98) Capillary Refill : I&O Intake and Output 08/23/17 00:00 Intake Total 300 ml Balance 300 ml Intake Oral 300 ml # Voids 1 Daily Weight Change No General: Alert, Oriented X3, Cooperative, No Acute Distress HEENT: Atraumatic, PERRLA, EOMI, Mucous Memb Moist/[place] Neck: Supple, No JVD Lungs: Clear to Auscultation Heart: Regular Rate Abdomen: Normal Bowel Sounds, Soft, No Tenderness Extremities: Other (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 Mild rt cellulitis of the leg) Neuro: Other (generalized weakness) Results Lab Data Laboratory Tests 08/22/17 20:40: Glucometer 159H 08/23/17 06:14: Glucometer 138H Assessment/Plan Assessment and Plan General debil secondary to acute on chronic kidney failure improving Type 2 DM insulin dependent S/P Left BKA has prosthesis Cellulitis rt leg on antibiotic E COLI UTI on antibiotics YUDY HTN controlled with med A FIB controlled with med Acute on chronic diastolic CHF compensated-cardiology at OSH has adjusted meds Plan Continue PT/OT F/U re therapy rosemary Have asked DR Christina to see tomorrow to assist with medical issues as needed F/U labs as per OSH requests (1) Renal failure (ARF), acute on chronic Status: Acute Co-Morbidities that are continuing to impact the rehab process: (include details ) IRMA ESPINOZA MD Aug 23, 2017 08:25
[2017-08-23] MEDS: NYSTATIN CREAM (MYCOSTATIN) 30 GM TUBE TP SCH ×2 (09:00→22:39)
[2017-08-23] MEDS ORDERED: NICOTINE 7 MG (NICODERM) PATCH TD SCH (09:00)
[2017-08-23] MEDS: GABAPENTIN 400 MG (NEURONTIN) CAP PO SCH ×3 (09:38→22:26)
[2017-08-23] MEDS: APIXABAN 5 MG (ELIQUIS) TABLET PO SCH ×2 (09:38→22:26)
[2017-08-23] MEDS: CLOPIDOGREL 75 MG (PLAVIX) TABLET PO SCH (09:38)
[2017-08-23] MEDS: CARVEDILOL 3.125 MG (COREG) TABLET PO SCH ×2 (09:38→22:25)
[2017-08-23] MEDS: DULoxetine 30 MG (CYMBALTA) CAP PO SCH (09:38)
[2017-08-23] MEDS: AMIODARONE 200 MG (CORDARONE) TAB PO SCH ×2 (09:39→22:27)
[2017-08-23] MEDS: inSUlin DETERMIR 1 UNIT/0.01 ML (LEVEMIR) CHARGE PER UNIT SQ SCH ×2 (10:57→22:27)
--- NOTE | 2017-08-23 10:59 | Physical Therapy Evaluation ---
PT Evaluation-General Medical Diagnosis Admission Date Aug 22, 2017 at 16:20 Medical Diagnosis: debility Onset Date: Jul 24, 2017 Therapy Diagnosis Therapy Diagnosis: impaired mobility, strength, endurance, ROM Height/Weight Height (Feet): 5 Height (Inches): 6.00 Weight (Pounds): 263 Weight (Ounces): 6.4 Precautions Precautions/Isolations: Fall Prevention, Standard Precautions Referral Physician: Jonah Reason for Referral: Evaluation/Treatment Medical History Pertinent Medical History: DM, HTN Additional Medical History PAST MEDICAL HISTORY: Chronic diastolic congestive heart failure, zhjmu-go-pfudjir kidney disease, type 2 diabetes mellitus, atrial fibrillation, UTI, right lower limb cellulitis, obstructive sleep apnea, hypertension, post-ATN diuresis. PAST SURGICAL HISTORY: Left BKA. Social History Home: Single Level Current Living Status: Spouse Entry Into Home: Ramp Patient's ramp is very steep and needs to be pushed up the ramp. Prior/Core FIM Prior Level of Function Functional [place] Measure 0=Not Assessed/NA 4=Minimal Assistance 1=Total Assistance 5=Supervision or Setup 2=Maximal Assistance 6=Modified [place] 3=Moderate Assistance 7=Complete [place] Bed Mobility: 6 Transfers (B,C,W/C) (FIM): 6 Patient states she was not really ambulating at home but performing transfers with mod I using a rolling walker. PT Evaluation-Current Subjective Patient in wheelchair pre tx, agrees to PT, no complaints of pain at rest. Pt/Family Goals "to be able to ambulate with a walker and not use her arms very much" Objective Patient Orientation: Normal For Age ROM/Strength ROM Lower Extremities Patient has a left side knee flexion contracture of 20 degrees Strenght Lower Extremities 4/5 gross bilateral lower extremities Neuromuscular (Tone, Coordination, Reflexes) NT Sensory Vision: Wears Glasses Hearing: Functional Sensation Right Lower Extremit: Impaired Sensation Left Lower Extremity: Impaired Sensation Lower Extremities Patient has impaired sensation on the right leg below the knee due to neuropathy Transfers Functional [place] Measure 0=Not Assessed/NA 4=Minimal Assistance 1=Total Assistance 5=Supervision or Setup 2=Maximal Assistance 6=Modified [place] 3=Moderate Assistance 7=Complete IndependenceIRFPAI Quality Coding Scale 6 Independent with activity with or without an assistive device 5 Patient requires set up or clean up by helper. Patient completes activity by themselves 4 Supervision or touching assist (CGA). [place] provide cues , steadying assist 3 The helper provides less than half the effort to complete the activity 2 The helper provides more than half the effort to complete the activity 1 Dependent. The helper does all the effort to complete an activity 7 Patient refused to complete or attempt activity 9 The patient did not perform the activity before the current illness or injury 88 Not attempted due to Medical conditions or safety concerns Transfers (B, C, W/C) (FIM): 4 Scootin Rollin Roll Left to Right (QC): 4 Supine to/from Sit: 4 Sit to/from Stand: 4 bed t/f WC(FIM only if WC use): 4 Sit to Lying (QC): 3 Lying to Sitting/Side of Bed(Q: 3 Sit to Stand (QC): 4 Chair/Zfn-yp-Pyitm Xfer(QC): 4 Car Transfer (QC): 3 Patient performs supine to sit with min assist, sit to supine with SBA, sit to stand with CGA, stand pivot CGA, car transfer with min assist Gait Does the Patient Walk?: Yes Mode of Locomotion: Walk Anticipated Mode of Locomotion: Walk Gait (FIM): 1 Walk 10 feet (QC): 4 Distance: 40'x2, 16' Gait Level of Assist: 4 Gait Persons Needed: 1 Gait Assistive Device: Parallel Bars Comments/Gait Description Patient ambulates 40' with parallel bars with CGA and using prosthetic leg on the left side. Patient's knee contracture on the left side makes bearing weight difficult on that side. Wheelchair Training Does the Pt Use a Wheelchair?: Yes Wheelchair (FIM): 6 Distance: 150'x2 Wheel 50 ft with 2 turns (QC): 6 Wheel 150 ft (QC): 6 Type of Wheelchair: Manual Stairs If not tested on admit;explain Patient cannot ambulate outside of the parallel bars yet and would not be safe on stairs. Balance Sitting Static: Normal Sitting Dynamic: Normal Standing Static: Fair Standing Dynamic: Fair Treatment seated exercises x20 (LAQ, hip flexion) Assessment/Needs Patient has impaired mobility, strength, endurance, ROM post left BKA and recent debility. Rehab Potential: Fair PT Short Term Goals Short Term Goals Time Frame: Aug 30, 2017 Transfers (B,C,W/C) (FIM): 6 Gait (FIM): 2 Gait Distance Comment: 50' Gait Level of Assist: 4 Gait Assistive Device: FWW PT Fpc Goals Club Car Attendant Goals PT Club Car Attendant Goals Time Frame: Sep 13, 2017 Transfers (B,C,W/C) (FIM): 6 Sit to Lying (QC): 6 Lying-Sitting on Side/Bed(QC): 6 Sit to Stand (QC): 6 Rollin Roll Left to Right (QC): 6 Chair/Quk-sg-Efnyg Xfer(QC): 6 Car Transfer (QC): 6 Gait (FIM): 2 Distance: 100' Walk 10 feet (QC): 4 Walk 10ft-Uneven Surface(QC): 4 Walk 50ft with 2 Turns (QC): 4 Gait Level of Assist: 5 Gait Assistive Device: FWW Wheelchair (FIM): 6 Stairs (FIM): 1 # of Steps: 1 1 Step (curb) (QC): 4 Stairs Level Of Assist: 4 PT Plan Problem List Problem List: Activity Tolerance, Functional Strength, Safety, Balance, Gait, Transfer, Bed Mobility, ROM Treatment/Plan Treatment Plan: Continue Plan of Care Treatment Plan: Bed Mobility, Education, Functional Activity Mahad, Functional Strength, Group Therapy, Gait, Safety, Therapeutic Exercise, Transfers Treatment Duration: Sep 13, 2017 Frequency: At least 5 of 7 days/Wk (IRF) Estimated Hrs Per Day: 1.5 hours per day Patient and/or Family Agrees t: Yes Safety Risks/Education Patient Education: Gait Training, Transfer Techniques, Correct Positioning, W/ C Management, Reviewed Don/Doff Brace, Safety Issues Teaching Recipient: Patient Teaching Methods: Demonstration, Discussion Response to Teaching: Reinforcement Needed Discharge Recommendations Plan Patient will perform bed mobility and transfer training, balance and endurance training, functional strengthening, stair training, gait training, and education , to improve functional mobility and independence at home. Therapy D/C Recommendations: Home w/ Family Support Time/GCodes Time In: 1000 Time Out: 1100 Total Billed Treatment Time: 60 Total Billed Treatment 1 visit EVM 30' GT 20' WC 10' GEM DANIELSON PT Aug 23, 2017 10:59
[2017-08-23] MEDS: GENTAMICIN 0.1% CREAM TP SCH ×3 (11:04→22:39)
--- NOTE | 2017-08-23 13:16 | Occupational Therapy Eval ---
OT Evaluation-General/PLF Medical Diagnosis Admission Date Aug 22, 2017 at 16:20 Medical Diagnosis: debility Onset Date: Jul 24, 2017 Therapy Diagnosis Therapy Diagnosis: decr self care, decr act leticia, decr funct mob, weakness Height/Weight Height (Feet): 5 Height (Inches): 6.00 Weight (Pounds): 263 Weight (Ounces): 6.4 Precautions Precautions/Isolations: Fall Prevention, Standard Precautions Safety Interventions: Reorient-PRN Referral Physician: Jonah Referral Reason: Evaluation/Treatment Medical History Pertinent Medical History: Atrial Fib, DM, HTN, PVD, Smoking Additional Medical History Chronic diastolic congestive heart failure, mlqic-rq-vivkmxb kidney disease, type 2 diabetes mellitus, atrial fibrillation, UTI, right lower limb cellulitis, obstructive sleep apnea, hypertension, post-ATN diuresis. Morbidly obese. L BKA and received rehab on IRF in February 2016 Current History Admitted to acute care hospital with dyspnea, kidney failure, increased LE edema , CHF, UTI. Has not been able to wear L LE prosthesis Reviewed History: Yes Social History Home: Single Level Current Living Status: Spouse (and 13 year old daughter) Entry Into Home: Ramp ADL-Prior Level of Function ADL PLOF Comments Pt reported that she has been able to manage her basic ADLs except for occasional assistance getting pants up. She has to hop into the bathroom with her FWW so uses BSC placed in kitchen. She primarily uses w/c to get around in the home, except for FWW in the bathroom. Her daughter helps with laundry and she does cooking at w/c level. She has a [employer] driver's license but has not driven since surgery. 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 She reported that she has had her prosthesis since October but hasn't work it much. DME/Equipment: Bath Bench, Bedside Commode, Tub/Shower OT Current Status Subjective Pt seen in room, up in w/c, agreeable to OT. Pain 0/10. Appearance Alert, cooperative Mental Status/Objective Patient Orientation: Person, Place, Time, Situation Attachments: Other-See Comments (L LE prosthesis) Current Glasses/Contacts: Yes Hearing Aids: No Dentures/Partials: No Hand Dominance: Right Upper Extremity ROM Grossly WFL bilat Upper Extremity Sensation no problems, per patient report Upper Extremity Strength grossly 4/5 bilat Flexion contracture L knee limits walking/standing, per PT ADL-Treatment ADL-Current She reported that she has been able to open food packages, cut up food, feed herself without help. No dentures. She propelled w/c to bathroom and completed toilet transfer with CGA to [facility] over toilet, grab bars. CGA for clothing management and hygiene, although she reports difficulty reaching srinivasa in front due to abdomen. transferred from [facility] to shower bench with CGA, grab bars. Able to wash and dry all parts but with CGA when standing. Transferred back to [facility] to dress, with CGA when standing to pull pants up. Able to doff/don prostheses without help. Completed grooming at sink w/c level. Pt transported herself to group when done with ADLs. Functional [place] Measure 0=Not Assessed/NA 4=Minimal Assistance 1=Total Assistance 5=Supervision or Setup 2=Maximal Assistance 6=Modified [place] 3=Moderate Assistance 7=Complete IndependenceIRFPAI Quality Coding Scale 6 Independent with activity with or without an assistive device 5 Patient requires set up or clean up by helper. Patient completes activity by themselves 4 Supervision or touching assist (CGA). [place] provide cues , steadying assist 3 The helper provides less than half the effort to complete the activity 2 The helper provides more than half the effort to complete the activity 1 Dependent. The helper does all the effort to complete an activity 7 Patient refused to complete or attempt activity 9 The patient did not perform the activity before the current illness or injury 88 Not attempted due to Medical conditions or safety concerns Eating (FIM): 7 (Open packages, cut up food, feed herself without help and with no AD. No dentures) Eating (QC): 6 Grooming (FIM): 6 (Mod I at sink. w/c level. To comb hair, brush teeth. washed face and hand sin shower) Oral Hygiene (QC): 6 Bathing (FIM): 4 (CGA when standing to wash srinivasa and bottom. Shower bench, grab abr, hand held shower. Unable to reach R foot but was able to wash it when provided with long handled sponge) Shower/Bathe Self (QC): 3 Upper Body Dressing (FIM): 6 (Doffed and donned bra and shirt, retrieved her own clothes, w/c level) Upper Body Dressing (QC): 6 Lower Body Dressing (FIM): 3 (help to get sock and shoe on R foot. CGA when standing to pull pants up. Able to don prosthesis herself without help. FWW or grab bar for standing) Lower Body Dressing (QC): 4 (CGA) On/Off Footwear (QC): 3 (Help to don sock and shoe, R foot) Toileting (FIM): 4 (CGA for standing, BSC over toilet. ) Toileting Hygiene (QC): 4 Toilet/Commode Transfer (FIM): 4 (CGA, w/c to BSC and back. Grab bar) Toilet Transfer (QC): 4 Shower Transfer (FIM): 4 (CGA getting in/out of shower and on/off shower bench. grab bar) Education OT Patient Education: Modified ADL techniques, Purpose of tx/functional activities, Rehab process, Safety issues, Transfer techniques Teaching Recipient: Patient Teaching Methods: Discussion Response to Teaching: Verbalize Understanding, Return Demonstration, Reinforcement Needed OT Short Term Goals Short Term Goals Time Frame: Aug 30, 2017 Bathing(FIM): 5 Lower Body Dressing(FIM): 5 Toileting(FIM): 5 Toilet/Commode Transfer(FIM): 5 Additional Short Term Goals: 1-Demonstrate ADL Tasks, 2-Verbalize Understanding , 3-ImproveStrength/Mahad 1=Demonstrate adherence to instructed precautions during ADL tasks. 2=Patient will verbalize/demonstrate understanding of assistive devices/ modifications for ADL. 3=Patient will improve strength/tolerance for activity to enable patient to perform ADL's. OT Staff Climate Scientist Goals Staff Climate Scientist Goals Time Frame: Sep 08, 2017 Eating (FIM): 7 Eating (QC): 6 Groomin Oral Hygiene (QC): 6 Bathing(FIM): 6 Shower/Bathe Self (QC): 6 Upper Body Dressing(FIM): 6 Upper Body Dressing (QC): 6 Lower Body Dressing(FIM): 6 Lower Body Dressing (QC): 6 On/Off Footwear (QC): 6 Toileting(FIM): 6 Toileting Hygiene (QC): 6 Toilet/Commode Transfer(FIM): 6 Toilet/Commode Transfer (QC): 6 Shower Transfer(FIM): 5 Additional Goals: 1-Demonstrate ADL Tasks, 2-Verbalize Understanding, 3- ImproveStrength/Mahad 1=Demonstrate adherence to instructed precautions during ADL tasks. 2=Patient will verbalize/demonstrate understanding of assistive devices/ modifications for ADL. 3=Patient will improve strength/tolerance for activity to enable patient to perform ADL's. OT Education/Plan Problem List/Assessment Assessment: Decreased Activ Tolerance, Decreased UE Strength, Dependent Transfers, Impaired Self-Care Skills Pt would benefit from skilled OT to increase her independence in basic self care to allow her to safely return home with family after long hospitalization Discharge Recommendations Plan/Recommendations: Continue POC Patient/Family Goals to be able to walk during ADLs and do laundry Treatment Plan/Plan of Care Treatment,Training & Education: Yes Patient would benefit from OT for education, treatment and training to promote independence in ADL's, mobility, safety and/or upper extremity function for ADL' s. Plan of Care: ADL Retraining, Functional Mobility, Group Exercise/Act as Ind ( education, exercise, activity tolerance, socialization, funct mobility), UE Funct Exercise/Act, UE Neuromus Re-Ed/Coord Treatment Duration: Sep 08, 2017 Frequency: At least 5 of 7 days/Wk (IRF) Estimated Hrs Per Day: 1.5 hours per day Agreement: Yes Rehab Potential: Good Time/GCodes Start Time: 11:00 Stop Time: 12:00 Total Time Billed (hr/min): 60 Billed Treatment Time visit, 15 minutes evaluation moderate intensity, 45 minutes ADL POLLY HELTON OT Aug 23, 2017 13:16
--- NOTE | 2017-08-23 13:28 | Therapy Group Daily Note ---
Therapy Daily Group Note Patient Education Topic Other List Below (handwashing) Exercises Fine Motor, UE Exercise Other/Notes Pt maneuvered w/c to OT/PT group at [facility]. Group consisted of introductions (name, place living, best August 23 fireworks), socialization, 23 of August facts, fine motor tasks, eating, handwashing education and UE tasks with dynamic sitting. Pt introduced self appropriately and actively listened to peers. Pt contributed to discussions on educational topics and conversations to peers. Pt completed fine motor and UE tasks appropriately without difficulty. After therapy, pt sitting in w/c maneuvering around hospital. All needs met. Start Time: 12:00 Stop Time: 13:10 Total Billed Treatment Time: 70 Total Billed Treatment 1-GRP ANA HWANG Aug 23, 2017 13:28
[2017-08-23 17:35] VITALS: BP 129/84
[2017-08-23] MEDS ORDERED: diphenhydrAMINE 25 MG TAB (BENADRYL) PO PRN (19:30)
[2017-08-23] MEDS ORDERED: NICOTINE 2 MG GUM (NICORETTE) PO PRN (19:30)
[2017-08-23 22:24] VITALS: BP 110/72
[2017-08-23] MEDS: SIMvastatin 20 MG (ZOCOR) TAB PO SCH (22:26)
[2017-08-24 05:04] VITALS: BP 119/70
[2017-08-24] MEDS: CALCIUM ACETATE 667 MG CAP (PHOSLO) PO SCH ×3 (06:07→18:10)
[2017-08-24 06:50] LABS: CALCIUM 8.8 MG/DL (8.5-10.1); CREATININE SERUM 2.39 MG/DL (0.60-1.30); POTASSIUM 4.3 MMOL/L (3.6-5.0)
[2017-08-24] MEDS: inSUlin ASPART (NovoLOG) 1 UNIT/0.01 ML (CHARGE PER UNIT) SC SCH ×4 (07:00→20:36)
[2017-08-24] MEDS: CLOPIDOGREL 75 MG (PLAVIX) TABLET PO SCH (07:57)
[2017-08-24] MEDS: APIXABAN 5 MG (ELIQUIS) TABLET PO SCH ×2 (07:57→20:35)
[2017-08-24] MEDS: DULoxetine 30 MG (CYMBALTA) CAP PO SCH (07:57)
[2017-08-24] MEDS: CARVEDILOL 3.125 MG (COREG) TABLET PO SCH ×2 (07:57→20:47)
[2017-08-24] MEDS: GABAPENTIN 400 MG (NEURONTIN) CAP PO SCH ×3 (07:57→20:34)
[2017-08-24] MEDS: AMIODARONE 200 MG (CORDARONE) TAB PO SCH ×2 (07:58→20:35)
[2017-08-24] MEDS: inSUlin DETERMIR 1 UNIT/0.01 ML (LEVEMIR) CHARGE PER UNIT SQ SCH ×2 (07:58→20:36)
[2017-08-24] MEDS: NYSTATIN CREAM (MYCOSTATIN) 30 GM TUBE TP SCH ×2 (07:59→20:38)
[2017-08-24] MEDS: GENTAMICIN 0.1% CREAM TP SCH ×3 (08:00→20:38)
--- NOTE | 2017-08-24 08:42 | Consultation ---
History of Present Illness History of Present Illness Patient Consulted On(keturah/time) 08/24/17 08:35 Time Seen by Provider: 08:35 History of Present Illness Patient has debility. Patient has cellulitis of leg and kidney problems. Patient stage III CKG. Patient wants to splint and leg left. Creatinine is was 1.7 then Patient did receive contrast and went up to 2.5 with creatinine. 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 Family history father skin cancer in mother breast cancer. Patient has history of diabetes, hypertension. And chronic atrial fibrillation.. Patient has UTI history Allergies and Home Medications Allergies Coded Allergies: tetanus toxoid, adsorbed (Verified Adverse Reaction, Intermediate, 03/09/16 ) Home Medications Acetaminophen 325 Mg Tablet, 650 MG PO Q4H PRN for PAIN, (Reported) TAKES 2 (325MG) TABLETS Alprazolam 0.5 Mg Tablet, 0.5 MG PO TID PRN for ANXIETY Prescribed by: IRMA ESPINOZA on 04/08/16 1033 Aspirin 81 Mg Tablet.dr, 81 MG PO DAILY Prescribed by: IRMA ESPINOZA on 04/08/16 1033 Calcium Carbonate 300 Mg Tab.chew, 750 MG PO BID, (Reported) Citalopram Hydrobromide 20 Mg Tablet, 20 MG PO DAILY, (Reported) Clopidogrel Bisulfate 75 Mg Tablet, 75 MG PO DAILY Prescribed by: IRMA ESPINOZA on 04/08/16 1033 Diltiazem HCl 120 Mg Cap.er.24h, 120 MG PO DAILY Prescribed by: IRMA ESPINOZA on 04/08/16 1033 Duloxetine HCl 30 Mg Capsule.dr, 30 MG PO DAILY, (Reported) Gabapentin 300 Mg Capsule, 600 MG PO TID, (Reported) TAKES 2 (300MG) CAPSULES Hypromellose 15 Ml Drops, 1-2 DROPS OU Q4H PRN for DRY EYES, (Reported) Insulin Determir 1,000 Units/10 Ml Soln, 10 UNITS SQ 2100, (Reported) Insulin Lispro 100 Unit/1 Ml Vial, SQ ACHS, (Reported) Lubiprostone 24 Mcg Capsule, 24 MCG PO BID, (Reported) Oxycodone HCl/Acetaminophen 1 Each Tablet, 1 TAB PO Q4H PRN for SEVERE PAIN Prescribed by: IRMA ESPINOZA on 04/08/16 1033 Phenyleph/Mineral Oil/Petrolat 28 Gm Oint.appl, RC UD PRN for HEMORRHOIDS, ( Reported) Pravastatin Sodium 20 Mg Tablet, 20 MG PO HS, (Reported) Sennosides 8.6 Mg Tablet, 2 TAB PO BID, (Reported) Silver Sulfadiazine 20 Gm Cream..g., 0 GM TOP DAILY Prescribed by: IRMA ESPINOZA on 04/08/16 1033 Zinc Oxide 28 Gm Oint, 0 GM TOP NEEDED PRN for wound care Prescribed by: IRMA ESPINOZA on 04/08/16 1033 Patient Home Medication List Home Medication List Reviewed: Yes Past Eybioyn-Xwjqcm-Mfpyij Hx Patient Social History Smoking Status: Current Everyday Smoker Type Used: Cigarettes Recent Foreign Travel: No Contact w/Someone Who Travel: No Recent Infectious Disease Expo: No Immunizations Up To Date Date of Pneumonia Vaccine: Nov 20, 2016 Date of Influenza Vaccine: Feb 20, 2016 Past Medical History Section, Orthopedic, Tonsillectomy Respiratory: No Cardiac: Yes (ANASTASIA with Cardioversion on 08/01/17) Atrial Fibrillation : No Genitourinary: Yes (Kidney disease; UTI) Amputee Endocrine: Yes HEENT: Yes (Retinopathy) Cataract Cancer: No Anxiety, Depression Integumentary: Yes (Cellulitis) Review of Systems-General Constitutional: weakness EENTM: no symptoms reported Respiratory: no symptoms reported Cardiovascular: other (Atrial fibrillation) Gastrointestinal: no symptoms reported Genitourinary: other (UTI) : No Physical Exam-General Problems Physical Exam Vital Signs Vital Signs - First Documented 08/22/17 17:23 Temp 96.6 Pulse 92 Resp 18 B/P (MAP) 127/83 (98) Pulse Ox 94 O2 Delivery Room Air Capillary Refill : General Appearance: WD/WN, no apparent distress, obese Eyes: Bilateral Eye Normal Inspection HEENT: normal ENT inspection Neck: full range of motion, normal inspection Respiratory: lungs clear, normal breath sounds, no respiratory distress, no accessory muscle use Cardiovascular: irregularly irregular Gastrointestinal: soft Assessment/Plan Assessment/Plan Admission Diagnosis/Plan Debility. Acute on chronic renal failure. Atrial fibrillation. Diabetes. BKA left. Sleep apnea obstructive Admission Status: Inpatient Order (span 2 midnights) Reason for Inpatient Admission: Debility. Cellulitis. BKA left. Diabetes Clinical Quality Measures DVT/VTE Risk/Contraindication: Risk Factor Score Per Nursin RFS Level Per Nursing on Admit: 4+=Very High GELLENDER,URSULA A DO Aug 24, 2017 08:42
[2017-08-24 10:18] LABS: BILIRUBIN,URINE NEGATIVE (NEGATIVE); CLARITY,URINE SLIGHTLY CLOUDY; COLOR,URINE YELLOW; GLUCOSE, URINE (UA) NEGATIVE (NEGATIVE); KETONES,URINE NEGATIVE (NEGATIVE); LEUKOCYTE ESTERASE ,URINE 3+ (NEGATIVE); NITRITE,URINE NEGATIVE (NEGATIVE); PH,URINE 6.5 (5-9); PROTEIN,URINE 2+ (NEGATIVE); UROBILINOGEN,URINE NORMAL (NORMAL)
[2017-08-24 10:49] LABS: BACTERIA,URINE FEW /HPF; RBC,URINE RARE /HPF; WBC,URINE 25-50 /HPF
--- NOTE | 2017-08-24 11:04 | Occupational Ther Daily Note ---
OT Current Status-Daily Note Subjective No pain reported. Appearance Pt. already up in chair and dressed. Mental Status/Objective Patient Orientation: Person, Place, Time, Situation Functional [place] Measure 0=Not Assessed/NA 4=Minimal Assistance 1=Total Assistance 5=Supervision or Setup 2=Maximal Assistance 6=Modified [place] 3=Moderate Assistance 7=Complete [place] ADL-Treatment Functional [place] Measure 0=Not Assessed/NA 4=Minimal Assistance 1=Total Assistance 5=Supervision or Setup 2=Maximal Assistance 6=Modified [place] 3=Moderate Assistance 7=Complete IndependenceIRFPAI Quality Coding Scale 6 Independent with activity with or without an assistive device 5 Patient requires set up or clean up by helper. Patient completes activity by themselves 4 Supervision or touching assist (CGA). [place] provide cues , steadying assist 3 The helper provides less than half the effort to complete the activity 2 The helper provides more than half the effort to complete the activity 1 Dependent. The helper does all the effort to complete an activity 7 Patient refused to complete or attempt activity 9 The patient did not perform the activity before the current illness or injury 88 Not attempted due to Medical conditions or safety concerns Lower Body Dressing (FIM): 5 (SBA with AE to doff/don right sock.) Lower Body Dressing (QC): 4 Transfers (B, C, W/C) (FIM): 5 (Sit-stand at parallel bar.) Pt. states that she will shower later. Spoke in depth with pt. regarding home set up, and therapy goals. Pt. would like to be able to ambulate independently without the walker ultimately. States that her right LE has become weak, and transfers are difficult. Pt. states that she has difficulty getting wheelchair into bathroom at home, and has to "hop" on one leg with walker. Has difficulty cleansing self in front due to size of stomach region. Pt. is issued and educated on toilet tongs. Pt. propels wheelchair independently to therapy gym. Practices doffing/donning right sock with AE. Stands at parallel bar x 2 with SBA and works on leaning side to side on foot. Requires several rest breaks. Pt. dons 2 lb. wrist weights and self propels throughout hospital. Work on increased strength overall and endurance. Propelled onto elevator and worked on pushing buttons from wheelchair level. Went to chap and talked about coming here with family with nurse permission. Pt. explains that she has had a hard time recently. Self propelled back to room. All needs met in room. Pt. agrees to shower later this a.m. Education OT Patient Education: Correct positioning, Exercise program, Modified ADL techniques, Progress toward Goal/Update tx plan, Purpose of tx/functional activities, Reviewed precautions, Rehab process, Transfer techniques Teaching Recipient: Patient Teaching Methods: Demonstration, Discussion Response to Teaching: Verbalize Understanding, Return Demonstration OT Short Term Goals Short Term Goals Time Frame: Aug 30, 2017 Bathing(FIM): 5 Lower Body Dressing(FIM): 5 Toileting(FIM): 5 Toilet/Commode Transfer(FIM): 5 Additional Short Term Goals: 1-Demonstrate ADL Tasks, 2-Verbalize Understanding , 3-ImproveStrength/Mahad 1=Demonstrate adherence to instructed precautions during ADL tasks. 2=Patient will verbalize/demonstrate understanding of assistive devices/ modifications for ADL. 3=Patient will improve strength/tolerance for activity to enable patient to perform ADL's. OT Bran Mixer Goals Bran Mixer Goals Time Frame: Sep 08, 2017 Eating (FIM): 7 Eating (QC): 6 Groomin Oral Hygiene (QC): 6 Bathing(FIM): 6 Shower/Bathe Self (QC): 6 Upper Body Dressing(FIM): 6 Upper Body Dressing (QC): 6 Lower Body Dressing(FIM): 6 Lower Body Dressing (QC): 6 On/Off Footwear (QC): 6 Toileting(FIM): 6 Toileting Hygiene (QC): 6 Toilet/Commode Transfer(FIM): 6 Toilet/Commode Transfer (QC): 6 Shower Transfer(FIM): 5 Additional Goals: 1-Demonstrate ADL Tasks, 2-Verbalize Understanding, 3- ImproveStrength/Mahad 1=Demonstrate adherence to instructed precautions during ADL tasks. 2=Patient will verbalize/demonstrate understanding of assistive devices/ modifications for ADL. 3=Patient will improve strength/tolerance for activity to enable patient to perform ADL's. OT Education/Plan Problem List/Assessment Assessment: Decreased Activ Tolerance, Decreased UE Strength, Dependent Transfers, Impaired Funct Balance, Impaired I ADL's, Impaired Self-Care Skills Pt would benefit from skilled OT to increase her independence in basic self care to allow her to safely return home with family after long hospitalization Discharge Recommendations Plan/Recommendations: Continue POC Therapy D/C Recommendations: Home w/ Family Support, Occupational Therapy Home Care Target Placement Home with family support. Treatment Plan/Plan of Care Patient would benefit from OT for education, treatment and training to promote independence in ADL's, mobility, safety and/or upper extremity function for ADL' s. Plan of Care: ADL Retraining, Functional Mobility, Group Exercise/Act as Ind ( education, exercise, activity tolerance, socialization, funct mobility), UE Funct Exercise/Act, UE Neuromus Re-Ed/Coord Treatment Duration: Sep 08, 2017 Frequency: At least 5 of 7 days/Wk (IRF) Estimated Hrs Per Day: 1.5 hours per day Agreement: Yes Rehab Potential: Good Time/GCodes Start Time: 08:30 Stop Time: 10:05 Total Time Billed (hr/min): 95 Billed Treatment Time 1, ADL x 15minutes, FA x 80minutes ALEXIS PAVON OT Aug 24, 2017 11:04
--- NOTE | 2017-08-24 11:47 | Physical Therapy Daily Note ---
PT Daily Note-Current Subjective Patient in wheelchair in room pre tx, agrees to PT, no complaints of pain. Appearance Patient in wheelchair post tx in room. Mental Status Patient Orientation: Normal For Age Transfers Functional [place] Measure 0=Not Assessed/NA 4=Minimal Assistance 1=Total Assistance 5=Supervision or Setup 2=Maximal Assistance 6=Modified [place] 3=Moderate Assistance 7=Complete IndependenceIRFPAI Quality Coding Scale 6 Independent with activity with or without an assistive device 5 Patient requires set up or clean up by helper. Patient completes activity by themselves 4 Supervision or touching assist (CGA). [place] provide cues , steadying assist 3 The helper provides less than half the effort to complete the activity 2 The helper provides more than half the effort to complete the activity 1 Dependent. The helper does all the effort to complete an activity 7 Patient refused to complete or attempt activity 9 The patient did not perform the activity before the current illness or injury 88 Not attempted due to Medical conditions or safety concerns Transfers (B, C, W/C) (FIM): 4 Scootin Rollin Supine to/from Sit: 4 Sit to/from Stand: 4 Bed to/from Chair: 4 min assist for supine to sit, CGA for transfers Gait Training Gait (FIM): 1 Distance: 40'x2, 20' Gait Level of Assist: 4 Gait Persons Needed: 1 Gait Assistive Device: FWW CGA, prosthetic leg on left side, slow ambulation, poor heel strike on left side Wheelchair Training Does the Pt Use a Wheelchair?: Yes Wheelchair (FIM): 6 Distance: 2000' Type of Wheelchair: Manual Patient went outside over community surfaces and was trained how to go up and down a ramp. Exercises side lying left hip abd, ext, flex x20, LAQ alternating for 5 min, left knee extension stretch supine with weight on knee for 5 min, prone hip stretch for 5 min NuStep Minutes: 15 NuStep Workload: 4 Treatments bed mobility and transfers, ambulation, functional strengthening, ROM/stretching , wheelchair mobility Assessment Current Status: Fair Progress improving ambulation but patient has significant left knee flexion contracture PT Short Term Goals Short Term Goals Time Frame: Aug 30, 2017 Gait (FIM): 2 Gait Distance Comment: 50' Gait Level of Assist: 4 Gait Assistive Device: FWW Wheelchair Distance: 150'x2 PT Sewage Plant Operator Goals Sewage Plant Operator Goals PT Skilled Nursing Goals Time Frame: Sep 13, 2017 Transfers (B,C,W/C) (FIM): 6 Sit to Lying (QC): 6 Lying-Sitting on Side/Bed(QC): 6 Sit to Stand (QC): 6 Rollin Roll Left to Right (QC): 6 Chair/[id number]-Pqstc Xfer(QC): 6 Car Transfer (QC): 6 Gait (FIM): 2 Distance: 100' Walk 10 feet (QC): 4 Walk 10ft-Uneven Surface(QC): 4 Walk 50ft with 2 Turns (QC): 4 Gait Level of Assist: 5 Gait Assistive Device: FWW Wheelchair (FIM): 6 Stairs (FIM): 1 # of Steps: 1 1 Step (curb) (QC): 4 Stairs Level Of Assist: 4 PT Plan Problem List Problem List: Activity Tolerance, Functional Strength, Safety, Balance, Gait, Transfer, Bed Mobility, ROM Treatment/Plan Treatment Plan: Continue Plan of Care Treatment Plan: Bed Mobility, Education, Functional Activity Mahad, Functional Strength, Group Therapy, Gait, Safety, Therapeutic Exercise, Transfers Treatment Duration: Sep 13, 2017 Frequency: At least 5 of 7 days/Wk (IRF) Estimated Hrs Per Day: 1.5 hours per day Patient and/or Family Agrees t: Yes Safety Risks/Education Patient Education: Gait Training, Transfer Techniques, Correct Positioning, W/ C Management, Reviewed Don/Doff Brace, Safety Issues Teaching Recipient: Patient Teaching Methods: Demonstration, Discussion Response to Teaching: Reinforcement Needed Time/GCodes Time In: 1015 Time Out: 1145 Total Billed Treatment Time: 90 Total Billed Treatment 1 visit GT 30' WCH 30' EX 30' GEM DANIELSON PT Aug 24, 2017 11:47
--- NOTE | 2017-08-24 12:29 | Occupational Ther Daily Note ---
OT Current Status-Daily Note Subjective No pain Appearance Pt. agrees to shower. Mental Status/Objective Patient Orientation: Person, Place, Time, Situation Functional [place] Measure 0=Not Assessed/NA 4=Minimal Assistance 1=Total Assistance 5=Supervision or Setup 2=Maximal Assistance 6=Modified [place] 3=Moderate Assistance 7=Complete [place] ADL-Treatment Functional [place] Measure 0=Not Assessed/NA 4=Minimal Assistance 1=Total Assistance 5=Supervision or Setup 2=Maximal Assistance 6=Modified [place] 3=Moderate Assistance 7=Complete IndependenceIRFPAI Quality Coding Scale 6 Independent with activity with or without an assistive device 5 Patient requires set up or clean up by helper. Patient completes activity by themselves 4 Supervision or touching assist (CGA). [place] provide cues , steadying assist 3 The helper provides less than half the effort to complete the activity 2 The helper provides more than half the effort to complete the activity 1 Dependent. The helper does all the effort to complete an activity 7 Patient refused to complete or attempt activity 9 The patient did not perform the activity before the current illness or injury 88 Not attempted due to Medical conditions or safety concerns Grooming (FIM): 6 (At wheelchair level) Oral Hygiene (QC): 6 Bathing (FIM): 4 (Min assist to wash right foot in shower.) Shower/Bathe Self (QC): 4 Upper Body (FIM): 5 (Set up) Upper Body Dressing (QC): 5 Lower Body Dressing (FIM): 4 (Min assist to balance in stance to pull up pants , and min assist to don right shoe.) Lower Body Dressing (QC): 4 On/Off Footwear (QC): 4 Transfers (B, C, W/C) (FIM): 4 (Min assist to transfer to and from wheelchair and shower.) Shower Transfer(FIM): 4 Other Treatment Pt. showered and then dressed in wheelchair. Utilized AE to dress LE. Education OT Patient Education: Correct positioning, Modified ADL techniques, Progress toward Goal/Update tx plan, Purpose of tx/functional activities, Reviewed precautions, Rehab process, Transfer techniques, Use of adapted equipment, W/C management Teaching Recipient: Patient Teaching Methods: Demonstration, Discussion Response to Teaching: Verbalize Understanding, Return Demonstration OT Short Term Goals Short Term Goals Time Frame: Aug 30, 2017 Bathing(FIM): 5 Lower Body Dressing(FIM): 5 Toileting(FIM): 5 Toilet/Commode Transfer(FIM): 5 Additional Short Term Goals: 1-Demonstrate ADL Tasks, 2-Verbalize Understanding , 3-ImproveStrength/Mahad 1=Demonstrate adherence to instructed precautions during ADL tasks. 2=Patient will verbalize/demonstrate understanding of assistive devices/ modifications for ADL. 3=Patient will improve strength/tolerance for activity to enable patient to perform ADL's. OT Accountant Systems Goals Accountant Systems Goals Time Frame: Sep 08, 2017 Eating (FIM): 7 Eating (QC): 6 Groomin Oral Hygiene (QC): 6 Bathing(FIM): 6 Shower/Bathe Self (QC): 6 Upper Body Dressing(FIM): 6 Upper Body Dressing (QC): 6 Lower Body Dressing(FIM): 6 Lower Body Dressing (QC): 6 On/Off Footwear (QC): 6 Toileting(FIM): 6 Toileting Hygiene (QC): 6 Toilet/Commode Transfer(FIM): 6 Toilet/Commode Transfer (QC): 6 Shower Transfer(FIM): 5 Additional Goals: 1-Demonstrate ADL Tasks, 2-Verbalize Understanding, 3- ImproveStrength/Mahad 1=Demonstrate adherence to instructed precautions during ADL tasks. 2=Patient will verbalize/demonstrate understanding of assistive devices/ modifications for ADL. 3=Patient will improve strength/tolerance for activity to enable patient to perform ADL's. OT Education/Plan Problem List/Assessment Assessment: Decreased Activ Tolerance, Decreased UE Strength, Dependent Transfers, Impaired Funct Balance, Impaired I ADL's, Impaired Self-Care Skills Pt would benefit from skilled OT to increase her independence in basic self care to allow her to safely return home with family after long hospitalization Discharge Recommendations Plan/Recommendations: Continue POC Therapy D/C Recommendations: Home w/ Family Support, Occupational Therapy Home Care Equpiment Recommendations-D/C: Hip Kit Treatment Plan/Plan of Care Treatment,Training & Education: Yes Patient would benefit from OT for education, treatment and training to promote independence in ADL's, mobility, safety and/or upper extremity function for ADL' s. Plan of Care: ADL Retraining, Functional Mobility, Group Exercise/Act as Ind ( education, exercise, activity tolerance, socialization, funct mobility), UE Funct Exercise/Act, UE Neuromus Re-Ed/Coord Treatment Duration: Sep 08, 2017 Frequency: At least 5 of 7 days/Wk (IRF) Estimated Hrs Per Day: 1.5 hours per day Agreement: Yes Rehab Potential: Good Time/GCodes Start Time: 11:45 Stop Time: 12:20 Total Time Billed (hr/min): 35 Billed Treatment Time 1, ADL [id number] ALEXIS PAVON OT Aug 24, 2017 12:29
--- NOTE | 2017-08-24 13:37 | ST Cognitive Linguistic Eval ---
Speech Evaluation-General Medical Diagnosis debility Onset Date: Jul 24, 2017 Therapy Diagnosis Therapy Diagnosis: Cognitive Linguistic Skills WNL Precautions Precautions/Isolations: Fall Prevention, Standard Precautions Referral Referring Physician: Dr. Errol Mckenzie Reason for Referral: Evaluation/Treatment Cognitive Evaluation Medical History Pertinent Medical History: Atrial Fib, DM, HTN, PVD, Smoking Reviewed History: Yes Social History Current Living Status: Spouse (and 13 year old daughter) Speech PLF-Current Status Prior Level of Function The patient denied prior challenges with speech, language, or cognition. Subjective The patient was seated upright in her wheelchair upon entrance. The patient greeted the clinician and was agreeable to participation in the cognitive evaluation. The patient's was at bedside. Language Eval: Auditory Comprehends Simple Yes/No Ques: Functional Indent/Objects Multiple Abreu: Functional Ident/Pics in Multiple Abreu: Functional Follows 1-Step Commands: Functional Follows Complex Directions: Functional Follows General Conversations: Functional Language Eval: Verbal Language Completes Spontaneous Greeting: Functional Produces Auto, Serial Info: Functional Imitates Simple Words/Phrases: Functional Word Finding: Functional Requests Basic Needs: Functional States Basic Personal Info: Functional Expresses Complex Ideas: Functional Cognitive Patient Orientation The patient is independently oriented to self, location, month, day of week, and year. Objective Cognitive Domain Attention: WNL Memory: WNL Problem Solving: Functional Objective Impression The patient demonstrated cognitive linguistic skills within normal limits. Communication/Social Cognition Comprehension: 6 (glasses.) Expression: 7 Social Interaction: 6 (Anti-depressant.) Problem Solvin Memory: 7 Speech Patient Assess Expression of Ideas/Wants: Expression (4) Understanding Verbal Content: Understands (4) Brief Interview-Mental Status: Yes Repetition of Three Words: Three (3) Temporal Orientation: Year: Correct (3) Temporal Orientation: Month: Accurate within 5 days(2) Temporal Orientation: Day: Correct (1) Recall : Wear to say "Sock": Yes, no cue required (2) Recall : Color: Yes, no cue required (2) Recall : Bed: Yes, no cue required (2) Speech-Plan Treatment Plan Speech Therapy Treatment Plan: Discontinue ST Evaluation, only. Frequency: Modified Program (IRF) (No ST warranted.) Estimated Hrs Per Day: Other (No ST warranted.) Rehab Potential: Good Safety Risks/Education Teaching Recipient: Patient, Significant Other Teaching Methods: Discussion Response to Teaching: Verbalize Understanding Education Topics Provided: Results, Recommendations, Plan of Care Time Speech Therapy Time In: 12:30 Speech Therapy Time Out: 12:45 Total Billed Time: 15 Billed Treatment Time 1, NGUYỄN MARINELLI Aug 24, 2017 13:37
--- NOTE | 2017-08-24 14:28 | Physical Therapy Daily Note ---
PT Daily Note-Current Subjective Pt sitting in [facility] in Therapy [facility] upon arrival. Pt agrees to PT despite reporting fatigue to Therapy already received today. Pain Location: No Pain Reported Mental Status Patient Orientation: Person, Place, Time, Situation Attachments: Other-See Comments (LLE Prosetitic ) Transfers Functional [place] Measure 0=Not Assessed/NA 4=Minimal Assistance 1=Total Assistance 5=Supervision or Setup 2=Maximal Assistance 6=Modified [place] 3=Moderate Assistance 7=Complete IndependenceIRFPAI Quality Coding Scale 6 Independent with activity with or without an assistive device 5 Patient requires set up or clean up by helper. Patient completes activity by themselves 4 Supervision or touching assist ([facility]). [place] provide cues , steadying assist 3 The helper provides less than half the effort to complete the activity 2 The helper provides more than half the effort to complete the activity 1 Dependent. The helper does all the effort to complete an activity 7 Patient refused to complete or attempt activity 9 The patient did not perform the activity before the current illness or injury 88 Not attempted due to Medical conditions or safety concerns Scootin Sit to/from Stand: 5 Sit to Stand (QC): 5 Weight Bearing Right Lower Extremity: Right Weight Bearing/Tolerated Left Lower Extremity: Left Weight Bearing/Tolerated Gait Training Does the Patient Walk?: Yes Distance (FIM): 3=150 ft Distance: 150' Walk 10 feet (QC): 4 Walk 50 ft with 2 Turns(QC): 4 Walk 150 ft (QC): 4 Gait Level of Assist: 4 Gait Persons Needed: 1 Gait Assistive Device: FWW Pt ambulates but doesn't put FWB on LLE (more so on toes). Pt fatigues and needs rest break after approx. 75' before continuing. Exercises Seated Therapy Exercises: Ankle pumps, Long arc quads, Hip flexion, Kicking activity Seated Reps: 10 NuStep Minutes: 3 NuStep Workload: 4 Treatments Pt transfers from [facility] to standing using FWW at [facility] for balance. Pt ambulates in hallway using FWW at [facility]. Pt uses NuStep for 3m at 4 before reporting discomfort in L knee and not being able to continue. Pt completes Seated Ex before propelling [facility] back to room to rest. Pt has all needs met, including call light next to pt. Assessment Current Status: Good Progress Pt fatigues although has had a long day with Therapy today. PT Short Term Goals Short Term Goals Time Frame: Aug 30, 2017 Gait (FIM): 2 Gait Distance Comment: 50' Gait Level of Assist: 4 Gait Assistive Device: FWW Wheelchair Distance: 2000' PT Client Account Assistant Goals Client Account Assistant Goals PT Client Account Assistant Goals Time Frame: Sep 13, 2017 Transfers (B,C,W/C) (FIM): 6 Sit to Lying (QC): 6 Lying-Sitting on Side/Bed(QC): 6 Sit to Stand (QC): 6 Rollin Roll Left to Right (QC): 6 Chair/Vku-nw-Dcdcw Xfer(QC): 6 Car Transfer (QC): 6 Gait (FIM): 2 Distance: 100' Walk 10 feet (QC): 4 Walk 10ft-Uneven Surface(QC): 4 Walk 50ft with 2 Turns (QC): 4 Gait Level of Assist: 5 Gait Assistive Device: FWW Wheelchair (FIM): 6 Stairs (FIM): 1 # of Steps: 1 1 Step (curb) (QC): 4 Stairs Level Of Assist: 4 PT Plan Problem List Problem List: Activity Tolerance, Functional Strength, Safety, Balance, Gait Treatment/Plan Treatment Plan: Continue Plan of Care Treatment Plan: Bed Mobility, Education, Functional Activity Mahad, Functional Strength, Group Therapy, Gait, Safety, Therapeutic Exercise, Transfers Treatment Duration: Sep 13, 2017 Frequency: At least 5 of 7 days/Wk (IRF) Estimated Hrs Per Day: 1.5 hours per day Patient and/or Family Agrees t: Yes Safety Risks/Education Patient Education: Gait Training, Transfer Techniques, Correct Positioning, W/ C Management, Safety Issues Teaching Recipient: Patient Teaching Methods: Discussion Response to Teaching: Verbalize Understanding Time/GCodes Time In: 1255 Time Out: 1325 Total Billed Treatment Time: 30 Total Billed Treatment 1, GT (15m) & EX (15m) G Codes Necessary: ALETHEA Hudson ENGINEERING TECH Aug 24, 2017 14:28
[2017-08-24 16:03] VITALS: BP 96/67
--- NOTE | 2017-08-24 18:50 | PM & R (SOAP) Progress Note ---
Subjective This was a face to face visit with the patient. Date Seen by Provider: Aug 24, 2017 Time Seen by Provider: 17:15 Subjective/Events-last exam Patient was seen in common area of Unit Just back from trip outside with spouse for fresh air Patient declined nicotine patch wanted gum so ordered Appreciate DR Leong note and orders U/A abnormal awaiting C&S Chem noted with elevated BUN CR.Patient SBA for transfers Review of Systems Neurological: Weakness Objective Physician Exam Last Set of Vital Signs Vital Signs Date Time Temp Pulse Resp B/P (MAP) Pulse Ox O2 Delivery O2 Flow Rate FiO2 08/24/17 16:03 96.7 91 18 96/67 (77) 95 Room Air Capillary Refill : I&O Intake and Output 08/24/17 00:00 Intake Total 2550 ml Balance 2550 ml Intake Oral 2550 ml # Voids 9 General: Alert, Oriented X3, Cooperative, No Acute Distress HEENT: Atraumatic, PERRLA, EOMI, Mucous Memb Moist/[place] Neck: Supple, No JVD Lungs: Clear to Auscultation Heart: Regular Rate Abdomen: Normal Bowel Sounds, Soft, No Tenderness Extremities: Other (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5, Urine Specific [place] 1.005L, Urine Protein 2+H, Urine Glucose (UA) NEGATIVE, Urine Ketones NEGATIVE, Urine Nitrite NEGATIVE, Urine Bilirubin NEGATIVE, Urine Urobilinogen NORMAL, Urine Leukocyte Esterase 3+H, Urine RBC (Auto) 2+H, Urine RBC RARE, Urine WBC 25-50H, Urine Squamous Epithelial Cells 10-25H, Urine Crystals NONE, Urine Bacteria FEWH, Urine Casts NONE, Urine Mucus NEGATIVE, Urine Culture Indicated YES 08/24/17 11:35: Glucometer 170H 08/24/17 16:10: Glucometer 112H Microbiology 08/24/17 Urine Culture - Preliminary, [facility] Assessment/Plan Assessment and Plan General debil secondary to acute on chronic Kidney failure improving Type 2 DM Insulin dependent E COLI UTI with Abnormal U/A Cellulitis rt leg on med YUDY HTN controlled AFIB controlled Acute on chronic diastolic CHF compensated Tobaccoism currently using Nicotine GUM Plan Continue PT/OT Team Conference next week-Check C&S for abnormal U/A F/U with DR thom doyle (1) Renal failure (ARF), acute on chronic Status: Acute Co-Morbidities that are continuing to impact the rehab process: (include details ) IRMA ESPINOZA MD Aug 24, 2017 18:50
[2017-08-24] MEDS: SIMvastatin 20 MG (ZOCOR) TAB PO SCH (20:35)
[2017-08-24 20:47] VITALS: BP 103/68
[2017-08-24] MEDS ORDERED: ACETAMINOPHEN 325 MG TABLET ONE (21:16)
[2017-08-25] MEDS: inSUlin ASPART (NovoLOG) 1 UNIT/0.01 ML (CHARGE PER UNIT) SC SCH ×4 (05:30→22:29)
[2017-08-25 06:26] LABS: HEMOGLOBIN 10.2 G/DL (11.5-16.0); MEAN PLATELET VOLUME 9.4 FL (7.4-10.4); RED BLOOD COUNT 3.59 10^6/uL (4.35-5.85); RED CELL DISTRIBUTION WIDTH 18.7 % (10.0-14.5); WHITE BLOOD COUNT 6.9 10^3/uL (4.3-11.0)
[2017-08-25] MEDS: CALCIUM ACETATE 667 MG CAP (PHOSLO) PO SCH ×3 (06:30→16:34)
[2017-08-25 06:45] LABS: CALCIUM 8.6 MG/DL (8.5-10.1); CREATININE SERUM 2.33 MG/DL (0.60-1.30); POTASSIUM 4.4 MMOL/L (3.6-5.0)
[2017-08-25 06:49] VITALS: BP 118/65
[2017-08-25] MEDS: CLOPIDOGREL 75 MG (PLAVIX) TABLET PO SCH (08:01)
[2017-08-25] MEDS: GABAPENTIN 400 MG (NEURONTIN) CAP PO SCH ×3 (08:01→20:45)
[2017-08-25] MEDS: AMIODARONE 200 MG (CORDARONE) TAB PO SCH ×2 (08:01→20:45)
[2017-08-25] MEDS: DULoxetine 30 MG (CYMBALTA) CAP PO SCH (08:01)
[2017-08-25] MEDS: APIXABAN 5 MG (ELIQUIS) TABLET PO SCH ×2 (08:01→20:45)
[2017-08-25] MEDS: inSUlin DETERMIR 1 UNIT/0.01 ML (LEVEMIR) CHARGE PER UNIT SQ SCH ×2 (08:01→22:29)
[2017-08-25 08:06] VITALS: BP 108/76
[2017-08-25] MEDS: CARVEDILOL 3.125 MG (COREG) TABLET PO SCH ×2 (08:06→20:45)
--- NOTE | 2017-08-25 08:17 | Progress Note (SOAP) ---
Subjective Time Seen by Provider: 08:15 Subjective/Events-last exam Renal insufficiency. Patient states she will work hard yesterday. Patient's blood tests reviewed Diabetes. Debility. GFR 22 from 21 Objective Exam Vital Signs Date Time Temp Pulse Resp B/P (MAP) Pulse Ox O2 Delivery O2 Flow Rate FiO2 08/25/17 08:06 80 108/76 (87) 08/25/17 06:49 98.2 88 19 118/65 (82) 95 Room Air 08/24/17 20:47 103/68 (80) 83 08/24/17 20:00 Room Air 08/24/17 16:03 96.7 91 18 96/67 (77) 95 Room Air 08/24/17 08:51 Room Air I & O 08/25/17 07:00 Intake Total 1840 ml Balance 1840 ml Capillary Refill : General Appearance: No Apparent Distress, WD/WN HEENT: Normal ENT Inspection Neck: Full Range of Motion, Normal Inspection Respiratory: Lungs Clear, No Accessory Muscle Use, No Respiratory Distress Cardiovascular: Regular Rate, Rhythm, No Murmur Results Lab Laboratory Tests 08/25/17 06:11 Laboratory Tests 08/24/17 10:10: Urine Color YELLOW, Urine Clarity SLIGHTLY CLOUDY, Urine pH 6.5, Urine Specific [place] 1.005L, Urine Protein 2+H, Urine Glucose (UA) NEGATIVE, Urine Ketones NEGATIVE, Urine Nitrite NEGATIVE, Urine Bilirubin NEGATIVE, Urine Urobilinogen NORMAL, Urine Leukocyte Esterase 3+H, Urine RBC (Auto) 2+H, Urine RBC RARE, Urine WBC 25-50H, Urine Squamous Epithelial Cells 10-25H, Urine Crystals NONE, Urine Bacteria FEWH, Urine Casts NONE, Urine Mucus NEGATIVE, Urine Culture Indicated YES 08/24/17 11:35: Glucometer 170H 08/24/17 16:10: Glucometer 112H 08/24/17 20:27: Glucometer 229H 08/25/17 05:25: Glucometer 131H 08/25/17 06:11: White Blood Count 6.9, Red Blood Count 3.59L, Hemoglobin 10.2L, Hematocrit 33L, Mean Corpuscular Volume 91, Mean Corpuscular Hemoglobin 28, Mean Corpuscular Hemoglobin Concent 31L, Red Cell Distribution Width 18.7H, Platelet Count 331, Mean Platelet Volume 9.4, Sodium Level 136, Potassium Level 4.4, Chloride Level 108H, Carbon Dioxide Level 20L, Anion Gap 8, Blood Urea Nitrogen 42H, Creatinine 2.33H, Estimat Glomerular Filtration Rate 22, BUN/Creatinine Ratio 18 , Glucose Level 126H, Calcium Level 8.6 Microbiology 08/24/17 Urine Culture - Preliminary, Resulted Sent To [facility] Assessment/Plan Assessment/Plan Assess & Plan/Chief Complaint Debility. Acute on chronic renal failure. Atrial fibrillation. Diabetes. BKA left. Sleep apnea obstructive. . 08/25/17. Debility. Acute on chronic renal failure. Atrial fibrillation. Diabetes. BKA. Obstructive sleep apnea. Patient feels of foot is slightly swollen Patient working hard yesterday Clinical Quality Measures DVT/VTE Risk/Contraindication: Risk Factor Score Per Nursin RFS Level Per Nursing on Admit: 4+=Very High URSULA RENEE DO Aug 25, 2017 08:17
[2017-08-25] MEDS: ACETAMINOPHEN 325 MG TABLET PO PRN (08:26)
[2017-08-25] MEDS: NYSTATIN CREAM (MYCOSTATIN) 30 GM TUBE TP SCH ×2 (08:26→20:46)
[2017-08-25] MEDS: GENTAMICIN 0.1% CREAM TP SCH ×3 (08:27→20:47)
--- NOTE | 2017-08-25 08:44 | PM & R (SOAP) Progress Note ---
Subjective This was a face to face visit with the patient. Date Seen by Provider: Aug 25, 2017 Time Seen by Provider: 07:45 Subjective/Events-last exam Patient was seen in her room this Am Patient SBA for transfers Objective Physician Exam Last Set of Vital Signs Vital Signs Date Time Temp Pulse Resp B/P (MAP) Pulse Ox O2 Delivery O2 Flow Rate FiO2 08/25/17 08:06 80 108/76 (87) 08/25/17 06:49 98.2 19 95 Room Air Capillary Refill : I&O Intake and Output 08/25/17 00:00 Intake Total 1840 ml Balance 1840 ml Intake Oral 1840 ml # Voids 8 # Bowel Movements 1 General: Alert, Oriented X3, Cooperative, No Acute Distress HEENT: Atraumatic, PERRLA, EOMI, Mucous Memb Moist/[place] Neck: Supple, No JVD Lungs: Clear to Auscultation Heart: Regular Rate Abdomen: Normal Bowel Sounds, Soft, No Tenderness Extremities: Other (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5, Urine Specific [place] 1.005L, Urine Protein 2+H, Urine Glucose (UA) NEGATIVE, Urine Ketones NEGATIVE, Urine Nitrite NEGATIVE, Urine Bilirubin NEGATIVE, Urine Urobilinogen NORMAL, Urine Leukocyte Esterase 3+H, Urine RBC (Auto) 2+H, Urine RBC RARE, Urine WBC 25-50H, Urine Squamous Epithelial Cells 10-25H, Urine Crystals NONE, Urine Bacteria FEWH, Urine Casts NONE, Urine Mucus NEGATIVE, Urine Culture Indicated YES 08/24/17 11:35: Glucometer 170H 08/24/17 16:10: Glucometer 112H 08/24/17 20:27: Glucometer 229H 08/25/17 05:25: Glucometer 131H 08/25/17 06:11: White Blood Count 6.9, Red Blood Count 3.59L, Hemoglobin 10.2L, Hematocrit 33L, Mean Corpuscular Volume 91, Mean Corpuscular Hemoglobin 28, Mean Corpuscular Hemoglobin Concent 31L, Red Cell Distribution Width 18.7H, Platelet Count 331, Mean Platelet Volume 9.4, Sodium Level 136, Potassium Level 4.4, Chloride Level 108H, Carbon Dioxide Level 20L, Anion Gap 8, Blood Urea Nitrogen 42H, Creatinine 2.33H, Estimat Glomerular Filtration Rate 22, BUN/Creatinine Ratio 18 , Glucose Level 126H, Calcium Level 8.6 Microbiology 08/24/17 Urine Culture - Preliminary, Resulted Sent To [facility] Assessment/Plan Assessment and Plan general debil secondary to acute on chronic kidney failure with BUN/CR stable Appreciate labs Type 2 DM insulin dependent E Coli UTi Cellulitis rt leg on med YUDY HTN controlled A FIB controlled Acute on chronic diastolic CHF compensated Tobaccoism currently using Nicotine GUM Plan Continue PT/OT TEam Conference next week F/U with DR tomas-Appreciate his note F/U re UC&S (1) Renal failure (ARF), acute on chronic Status: Acute Co-Morbidities that are continuing to impact the rehab process: (include details ) IRMA ESPINOZA MD Aug 25, 2017 08:44
--- NOTE | 2017-08-25 08:51 | Individualized Plan of Care ---
Individualized Plan of Care Rehab Nursing IPOC Order Admission Date Aug 22, 2017 at 16:20 Current Orders Orders Ambulate TID (08/22/17 17:03) Sequential Compression Device 08,20 (08/22/17 17:03) Dvt/Vte Risk - Notifiy Physici 08 (08/22/17 17:03) Edu Tobacco/Smoking Cessation .prn (08/22/17 17:03) Admission Order(Inpt,Obs,Sdc) (08/22/17 18:03) Vital Signs: Routine (Order) 08,16,00 (08/22/17 18:03) Battery Charger Tester-Inpt Rehab Con (08/22/17 18:03) Rehab Nursing Orders-Ipoc (08/22/17 18:03) Intake & Output 06,14, (08/22/17 18:03) Weekly Weight (Lbs) WEEK (08/22/17 18:03) Physical Therapy Rehab Orders (08/22/17 18:03) Occupational Therapy Rehab Ord (08/22/17 18:03) Speech Therapy Rehab Orders (08/22/17 18:03) Cho 60g/M 1snack (16-2000 Anthony) (08/22/17 Lunch) Apixaban Tablet (Eliquis Tablet) (08/22/17 21:00) Cephalexin Capsule (Keflex Capsule) (08/22/17 21:00) Nicotine Patch (Nicoderm Patch) (08/23/17 09:00) Nystatin Cream (Mycostatin Cream) (08/22/17 21:00) Citalopram Tablet (Celexa Tablet) (08/23/17 09:00) Alprazolam Tablet (Xanax Tablet) (08/22/17 18:15) Duloxetine Capsule (Cymbalta Capsule) (08/23/17 09:00) Insulin Determir (Per Unit) (Levemir (Pe (08/22/17 21:00) Clopidogrel Tablet (Plavix Tablet) (08/23/17 09:00) Carvedilol Tablet (Coreg Tablet) (08/22/17 21:00) Pharmacy Communication (Pharmacy Communi (08/22/17 18:30) Consult Physician (08/22/17 18:22) Gabapentin Capsule/Tablet (Neurontin Cap (08/22/17 21:00) Insulin Aspart (Novolog) (Novolog (Charg (08/22/17 18:45) Simvastatin Tablet (Zocor Tablet) (08/22/17 21:00) Calcium Acetate Capsule (Phoslo 667 Mg C (08/23/17 07:00) Amiodarone Tablet (Cordarone Tablet) (08/22/17 21:00) Amiodarone Tablet (Cordarone Tablet) (08/27/17 09:00) Insulin Aspart (Novolog) (Novolog (Charg (08/22/17 21:00) Accucheck Achs ACHS (08/22/17 18:52) Follow-Up Appointment (08/22/17 18:56) Daily Weight 06 (08/22/17 19:34) Basic Metabolic Panel (08/24/17 06:00) Patient's Own Med(Rx Use Only) (Patient' (08/22/17 21:00) Patient Visit (08/23/17 ) Pt Eval Moderate Complexity (08/23/17 ) Gait Training, Ea 15 Min (08/23/17 ) Wheelchair Mgmt/Propulsn 15min (08/23/17 ) Patient Visit (08/23/17 ) Nicotine Gum (Nicorette Gum) (08/23/17 19:30) Diphenhydramine Tablet (Benadryl Tablet) (08/23/17 19:30) Basic Metabolic Panel (08/25/17 06:00) Cbc No Diff (08/25/17 06:00) Ua Culture If Indicated (08/24/17 10:10) Urine Culture (08/24/17 10:10) Patient Visit (08/24/17 ) Gait Training, Ea 15 Min (08/24/17 ) Exercise Therap, Ea 15 Min (08/24/17 ) Wheelchair Mgmt/Propulsn 15min (08/24/17 ) Patient Visit (08/24/17 ) Exercise Therap, Ea 15 Min (08/24/17 ) Gait Training, Ea 15 Min (08/24/17 ) Patient Visit (08/24/17 ) Speech Sound Lang Comp (08/24/17 ) Acetaminophen Tablet/Caplet (Tylenol T (08/24/17 21:15) Acetaminophen Tablet/Caplet (Tylenol T (08/24/17 21:16) Rehab Nursing Orders: Ongoing Assess. of Cognitive Status, Ongoing Assess. of Function Status, Disease Management & Educaiton, DVT Prophylaxis, Fall Prevention, Fluid/Electrolyte/Nutrition Mgmt, Infection Prevention, Medication Management & Education, Management of Risks & Complications, Management of Skin Intergrity, Nutrition Management, Pain Management, Patient/Family Support PT IPOC Problem List: Activity Tolerance, Functional Strength, Safety, Balance, Gait Treatment Plan: Continue Plan of Care Bed Mobility, Education, Functional Activity Mahad, Functional Strength, Group Therapy, Gait, Safety, Therapeutic Exercise, Transfers Treatment Duration: Sep 13, 2017 Frequency: At least 5 of 7 days/Wk (IRF) Estimated Hrs Per Day: 1.5 hours per day OT IPOC Problems: Decreased Activ Tolerance, Decreased UE Strength, Dependent Transfers , Impaired Funct Balance, Impaired I ADL's, Impaired Self-Care Skills OT Treatment, Training and Edu: Yes OT Problems Pt would benefit from skilled OT to increase her independence in basic self care to allow her to safely return home with family after long hospitalization Plan of Care: ADL Retraining, Functional Mobility, Group Exercise/Act as Ind ( education, exercise, activity tolerance, socialization, funct mobility), UE Funct Exercise/Act, UE Neuromus Re-Ed/Coord Treatment Duration: Sep 08, 2017 Frequency: At least 5 of 7 days/Wk (IRF) Estimated Hrs Per Day: 1.[address] IPOC Speech Therapy Treatment Plan: Discontinue ST Treatment Duration: Aug 25, 2017 Frequency: Modified Program (IRF) (No ST warranted.) Estimated Hrs Per Day: Other (No ST warranted.) Battery Charger Tester/Case Mgmt Battery Charger Tester/Case Managemen: Discharge Planning, Patient/Family Counseling Dietitian/Digital Recruiter Dietitian/Digital Recruiter to monitor nutritional status and make changes and/or recommendations as needed and work with speech pathology on dietary upgrades as the occur. Physician IPOC Medical Issues being managed closely and that require the 24 hour availability of a physician: Acute on chronic RF DM E Coli UTI Left BKA Tobaccoism HTN controlled A FIB controlled YUDY CHF IGC code 20 Etiologic DX Acute on chronic Diastolic Ht failure Medical Issues: Bowel/Bladder Function, DVT Prophylaxis, Falls Precautions, Fluid/Electrolyte/Nutrition Balance, Infection Protection, Pain Management, Other (List) (as per above) Brief Synthesis of Preadmission Screen, Post-Admission Evaluation, and Therapy Evaluations: 56 yo female who had been Independent at the W/C level and living with spouse in [place] who was admitted to OSH for treatment of UTI complicated by Acute on chronic Renal failure followed by renal Cardilogy and Hospitalist at OSH.Has left BKA prosthesis but socket doesnt always fit due to fluctuating Fluid retention due to CHF.Has multiple comorbidities Medical Prognosis: Good Anticipated Length of Stay: 09-08-17 Modified Independent for adls and mobility skills Anticipated d/c Destination: Home with spouse to [place] IRMA ESPINOZA MD Aug 25, 2017 08:51
--- NOTE | 2017-08-25 10:35 | Occupational Ther Daily Note ---
OT Current Status-Daily Note Subjective Pt sleeping in w/c, woke to name. Pt agrees to therapy. C/o stiffness and soreness in UE's. Mental Status/Objective Patient Orientation: Person, Place, Time, Situation Functional [place] Measure 0=Not Assessed/NA 4=Minimal Assistance 1=Total Assistance 5=Supervision or Setup 2=Maximal Assistance 6=Modified [place] 3=Moderate Assistance 7=Complete [place] ADL-Treatment Functional [place] Measure 0=Not Assessed/NA 4=Minimal Assistance 1=Total Assistance 5=Supervision or Setup 2=Maximal Assistance 6=Modified [place] 3=Moderate Assistance 7=Complete IndependenceIRFPAI Quality Coding Scale 6 Independent with activity with or without an assistive device 5 Patient requires set up or clean up by helper. Patient completes activity by themselves 4 Supervision or touching assist ([facility]). [place] provide cues , steadying assist 3 The helper provides less than half the effort to complete the activity 2 The helper provides more than half the effort to complete the activity 1 Dependent. The helper does all the effort to complete an activity 7 Patient refused to complete or attempt activity 9 The patient did not perform the activity before the current illness or injury 88 Not attempted due to Medical conditions or safety concerns Grooming (FIM): 6 (Sitting in w/c, pt able to complete by self.) Oral Hygiene (QC): 6 Bathing (FIM): 5 (Supervision to complete shower using hand held shower, shower bench and grabbars.) Bathing Location: L Arm, R Arm, L Upper Leg, R Upper Leg, R Lower Leg ( including foot), Chest, Abdomen, Buttocks, Perineal Area Shower/Bathe Self (QC): 4 Upper Body (FIM): 5 (Assist to retrieve clothing then pt able to complete.) Upper Body Dressing (QC): 5 Lower Body Dressing (FIM): 4 (SBA in standing to hike pants over hips. Able to don/doff lower body clothng by self. Uses dressing stick to doff sock. Assist to don compression stocking on R lower leg.) Lower Body Dressing (QC): 4 On/Off Footwear (QC): 5 Toileting (FIM): 5 (SBA using grabbars and BSC.) Toileting Hygiene (QC): 4 Toilet/Commode Transfer (FIM): 5 (SBA using grabbar, BSC and w/c.) Toilet Transfer (QC): 4 Shower Transfer(FIM): 4 (Assist to stand up from shower bench using grabbars. SBA for SPT using w/c and grabbars.) OT Short Term Goals Short Term Goals Time Frame: Aug 30, 2017 Bathing(FIM): 5 Lower Body Dressing(FIM): 5 Toileting(FIM): 5 Toilet/Commode Transfer(FIM): 5 Additional Short Term Goals: 1-Demonstrate ADL Tasks, 2-Verbalize Understanding , 3-ImproveStrength/Mahad 1=Demonstrate adherence to instructed precautions during ADL tasks. 2=Patient will verbalize/demonstrate understanding of assistive devices/ modifications for ADL. 3=Patient will improve strength/tolerance for activity to enable patient to perform ADL's. OT Custodial Goals Custodial Goals Time Frame: Sep 08, 2017 Eating (FIM): 7 Eating (QC): 6 Groomin Oral Hygiene (QC): 6 Bathing(FIM): 6 Shower/Bathe Self (QC): 6 Upper Body Dressing(FIM): 6 Upper Body Dressing (QC): 6 Lower Body Dressing(FIM): 6 Lower Body Dressing (QC): 6 On/Off Footwear (QC): 6 Toileting(FIM): 6 Toileting Hygiene (QC): 6 Toilet/Commode Transfer(FIM): 6 Toilet/Commode Transfer (QC): 6 Shower Transfer(FIM): 5 Additional Goals: 1-Demonstrate ADL Tasks, 2-Verbalize Understanding, 3- ImproveStrength/Mahad 1=Demonstrate adherence to instructed precautions during ADL tasks. 2=Patient will verbalize/demonstrate understanding of assistive devices/ modifications for ADL. 3=Patient will improve strength/tolerance for activity to enable patient to perform ADL's. OT Education/Plan Problem List/Assessment Pt would benefit from skilled OT to increase her independence in basic self care to allow her to safely return home with family after long hospitalization Discharge Recommendations Plan/Recommendations: Continue POC Treatment Plan/Plan of Care Patient would benefit from OT for education, treatment and training to promote independence in ADL's, mobility, safety and/or upper extremity function for ADL' s. Plan of Care: ADL Retraining, Functional Mobility, Group Exercise/Act as Ind ( education, exercise, activity tolerance, socialization, funct mobility), UE Funct Exercise/Act, UE Neuromus Re-Ed/Coord Treatment Duration: Sep 08, 2017 Frequency: At least 5 of 7 days/Wk (IRF) Estimated Hrs Per Day: 1.5 hours per day Agreement: Yes Rehab Potential: Good Time/GCodes Start Time: 09:00 Stop Time: 10:00 Total Time Billed (hr/min): 60 Billed Treatment Time 1 visit-ADL 4 (60 min) ANA HWANG Aug 25, 2017 10:35
--- NOTE | 2017-08-25 11:28 | Physical Therapy Daily Note ---
PT Daily Note-Current Subjective Patient in wheelchair in room pre tx, agrees to PT, no complaints of pain. However, she does state she occasionally has sore shoulders from using walker to ambulate. Appearance Patient in wheelchair in her room post tx Mental Status Patient Orientation: Normal For Age Transfers Functional [place] Measure 0=Not Assessed/NA 4=Minimal Assistance 1=Total Assistance 5=Supervision or Setup 2=Maximal Assistance 6=Modified [place] 3=Moderate Assistance 7=Complete IndependenceIRFPAI Quality Coding Scale 6 Independent with activity with or without an assistive device 5 Patient requires set up or clean up by helper. Patient completes activity by themselves 4 Supervision or touching assist (CGA). [place] provide cues , steadying assist 3 The helper provides less than half the effort to complete the activity 2 The helper provides more than half the effort to complete the activity 1 Dependent. The helper does all the effort to complete an activity 7 Patient refused to complete or attempt activity 9 The patient did not perform the activity before the current illness or injury 88 Not attempted due to Medical conditions or safety concerns Transfers (B, C, W/C) (FIM): 5 Scootin Rollin Supine to/from Sit: 6 Sit to/from Stand: 5 Bed to/from Chair: 5 Patient has some difficulty with sit to supine and rolling but she can do it without assist. Weight Bearing Right Lower Extremity: Right Weight Bearing/Tolerated Left Lower Extremity: Left Weight Bearing/Tolerated Gait Training Gait (FIM): 1 Distance: 40'x3 Gait Level of Assist: 4 Gait Assistive Device: FWW CGA, patient has poor heel strike on the prosthetic side, flexed knee due to knee contracture Wheelchair Training Does the Pt Use a Wheelchair?: Yes Wheelchair (FIM): 6 Distance: 150'x2 Type of Wheelchair: Manual Exercises LAQ alternating for 5 min, prone hip stretch for 5 min, left knee extension stretch for 5 min, sidelying hip flex,ext, abd x20 NuStep Minutes: 15 NuStep Workload: 4 Treatments bed mobility and transfers, ambulation, wheelchair mobility, functional strengthening, ROM Assessment Current Status: Fair Progress improving endurance and ambulation PT Short Term Goals Short Term Goals Time Frame: Aug 30, 2017 Gait (FIM): 2 Gait Distance Comment: 50' Gait Level of Assist: 4 Gait Assistive Device: FWW Wheelchair Distance: 2000' PT Nursing Home Goals [place] Box Tender Goals PT Nursing Home Goals Time Frame: Sep 13, 2017 Transfers (B,C,W/C) (FIM): 6 Sit to Lying (QC): 6 Lying-Sitting on Side/Bed(QC): 6 Sit to Stand (QC): 6 Rollin Roll Left to Right (QC): 6 Chair/Byl-pj-Wewav Xfer(QC): 6 Car Transfer (QC): 6 Gait (FIM): 2 Distance: 100' Walk 10 feet (QC): 4 Walk 10ft-Uneven Surface(QC): 4 Walk 50ft with 2 Turns (QC): 4 Gait Level of Assist: 5 Gait Assistive Device: FWW Wheelchair (FIM): 6 Stairs (FIM): 1 # of Steps: 1 1 Step (curb) (QC): 4 Stairs Level Of Assist: 4 PT Plan Problem List Problem List: Activity Tolerance, Functional Strength, Safety, Balance, Gait, Transfer, Bed Mobility, ROM Treatment/Plan Treatment Plan: Continue Plan of Care Treatment Plan: Bed Mobility, Education, Functional Activity Mahad, Functional Strength, Group Therapy, Gait, Safety, Therapeutic Exercise, Transfers Treatment Duration: Sep 13, 2017 Frequency: At least 5 of 7 days/Wk (IRF) Estimated Hrs Per Day: 1.5 hours per day Patient and/or Family Agrees t: Yes Safety Risks/Education Patient Education: Gait Training, Transfer Techniques, Correct Positioning, W/ C Management, Safety Issues Teaching Recipient: Patient Teaching Methods: Demonstration, Discussion Response to Teaching: Reinforcement Needed Time/GCodes Time In: 1000 Time Out: 1130 Total Billed Treatment Time: 90 Total Billed Treatment 1 visit GT 30' EX 30' FA 30' GEM DANIELSON PT Aug 25, 2017 11:28
--- NOTE | 2017-08-25 14:45 | Occupational Ther Daily Note ---
OT Current Status-Daily Note Subjective Pt alert, sitting in w/c. Pt agrees to therapy. Pt c/o shldr stiffness/ soreness, MHP to shldrs and neck. Mental Status/Objective Patient Orientation: Person, Place, Time, Situation Functional [place] Measure 0=Not Assessed/NA 4=Minimal Assistance 1=Total Assistance 5=Supervision or Setup 2=Maximal Assistance 6=Modified [place] 3=Moderate Assistance 7=Complete [place] ADL-Treatment Functional [place] Measure 0=Not Assessed/NA 4=Minimal Assistance 1=Total Assistance 5=Supervision or Setup 2=Maximal Assistance 6=Modified [place] 3=Moderate Assistance 7=Complete IndependenceIRFPAI Quality Coding Scale 6 Independent with activity with or without an assistive device 5 Patient requires set up or clean up by helper. Patient completes activity by themselves 4 Supervision or touching assist (CGA). [place] provide cues , steadying assist 3 The helper provides less than half the effort to complete the activity 2 The helper provides more than half the effort to complete the activity 1 Dependent. The helper does all the effort to complete an activity 7 Patient refused to complete or attempt activity 9 The patient did not perform the activity before the current illness or injury 88 Not attempted due to Medical conditions or safety concerns Toileting (FIM): 5 (SBA using grabbars and BSC.) Toileting Hygiene (QC): 4 Toilet/Commode Transfer (FIM): 5 (SBA using grabbar, BSC and w/c.) Toilet Transfer (QC): 4 Other Treatment Pt completed fine motor strengthening exercises while MHP were applied to sore areas. Pt tolerated fine motor exercises well and completed to increase dexterity and strength for daily functional tasks. After therapy, pt sitting in w/c with R LE elevated. Call light/phone in reach. All needs met in room. OT Short Term Goals Short Term Goals Time Frame: Aug 30, 2017 Bathing(FIM): 5 Lower Body Dressing(FIM): 5 Toileting(FIM): 5 Toilet/Commode Transfer(FIM): 5 Additional Short Term Goals: 1-Demonstrate ADL Tasks, 2-Verbalize Understanding , 3-ImproveStrength/Mahad 1=Demonstrate adherence to instructed precautions during ADL tasks. 2=Patient will verbalize/demonstrate understanding of assistive devices/ modifications for ADL. 3=Patient will improve strength/tolerance for activity to enable patient to perform ADL's. OT Skilled Nursing Goals Skilled Nursing Goals Time Frame: Sep 08, 2017 Eating (FIM): 7 Eating (QC): 6 Groomin Oral Hygiene (QC): 6 Bathing(FIM): 6 Shower/Bathe Self (QC): 6 Upper Body Dressing(FIM): 6 Upper Body Dressing (QC): 6 Lower Body Dressing(FIM): 6 Lower Body Dressing (QC): 6 On/Off Footwear (QC): 6 Toileting(FIM): 6 Toileting Hygiene (QC): 6 Toilet/Commode Transfer(FIM): 6 Toilet/Commode Transfer (QC): 6 Shower Transfer(FIM): 5 Additional Goals: 1-Demonstrate ADL Tasks, 2-Verbalize Understanding, 3- ImproveStrength/Mahad 1=Demonstrate adherence to instructed precautions during ADL tasks. 2=Patient will verbalize/demonstrate understanding of assistive devices/ modifications for ADL. 3=Patient will improve strength/tolerance for activity to enable patient to perform ADL's. OT Education/Plan Problem List/Assessment Pt would benefit from skilled OT to increase her independence in basic self care to allow her to safely return home with family after long hospitalization Discharge Recommendations Plan/Recommendations: Continue POC Treatment Plan/Plan of Care Patient would benefit from OT for education, treatment and training to promote independence in ADL's, mobility, safety and/or upper extremity function for ADL' s. Plan of Care: ADL Retraining, Functional Mobility, Group Exercise/Act as Ind ( education, exercise, activity tolerance, socialization, funct mobility), UE Funct Exercise/Act, UE Neuromus Re-Ed/Coord Treatment Duration: Sep 08, 2017 Frequency: At least 5 of 7 days/Wk (IRF) Estimated Hrs Per Day: 1.5 hours per day Agreement: Yes Rehab Potential: Good Time/GCodes Start Time: 11:30 Stop Time: 12:10 Total Time Billed (hr/min): 40 Billed Treatment Time 1 visit-FA 1 (15 min) EX 2 (25 min) ANA HWANG Aug 25, 2017 14:45
--- NOTE | 2017-08-25 14:51 | Therapy Group Daily Note ---
Therapy Daily Group Note Patient Education Topic Home Safety Exercises Fine Motor, UE Exercise Other/Notes Pt maneuvered w/c to OT group in [facility]. Group consisted of introductions (name, place living, childhood games), socialization, UE gross motor and fine motor tasks and environmental signs/education for safety. Pt introduced self appropriately and actively listened to peers. Pt contributed to discussions and initiated discussions with peers. Pt was able to complete UE tasks appropriately to increase strength and dexterity for functional daily tasks. Pt was able to verbalize understanding of educational topic and give examples of safe solutions. After therapy, pt lying in bed with call light/ phone in reach. All needs met in room. Start Time: 13:00 Stop Time: 14:15 Total Billed Treatment Time: 75 Total Billed Treatment 1-GRP ANA HWANG Aug 25, 2017 14:51
[2017-08-25 17:56] VITALS: BP 121/80
[2017-08-25 20:44] VITALS: BP 119/82
[2017-08-25] MEDS: SIMvastatin 20 MG (ZOCOR) TAB PO SCH (20:45)
[2017-08-26 05:11] VITALS: BP 116/81
[2017-08-26] MEDS: inSUlin ASPART (NovoLOG) 1 UNIT/0.01 ML (CHARGE PER UNIT) SC SCH ×4 (06:00→21:23)
[2017-08-26] MEDS: CALCIUM ACETATE 667 MG CAP (PHOSLO) PO SCH ×3 (07:14→16:57)
--- NOTE | 2017-08-26 08:26 | PM & R (SOAP) Progress Note ---
Subjective This was a face to face visit with the patient. Date Seen by Provider: Aug 26, 2017 Time Seen by Provider: 07:50 Subjective/Events-last exam Patient was seen in her room this AM Patient SBA for transfers Asdks about f/u labs for kidney function Current labs reviewed will recheck on Monday08-28-17 see orders Objective Physician Exam Last Set of Vital Signs Vital Signs Date Time Temp Pulse Resp B/P (MAP) Pulse Ox O2 Delivery O2 Flow Rate FiO2 08/26/17 05:11 96.9 67 19 116/81 (93) 97 Room Air Capillary Refill : I&O Intake and Output 08/26/17 00:00 Intake Total 1960 ml Balance 1960 ml Intake Oral 1960 ml # Voids 10 # Bowel Movements 1 General: Alert, Oriented X3, Cooperative, No Acute Distress HEENT: Atraumatic, PERRLA, EOMI, Mucous Memb Moist/[place] Neck: Supple, No JVD Lungs: Clear to Auscultation Heart: Regular Rate Abdomen: Normal Bowel Sounds, Soft, No Tenderness Extremities: Other (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 Mild rt cellulitis of the leg) Neuro: Other (generalized weakness) Results Lab Data Laboratory Tests 08/23/17 12:26: Glucometer 127H 08/23/17 16:35: Glucometer 183H 08/23/17 22:20: Glucometer 159H 08/24/17 06:00: Sodium Level 137, Potassium Level 4.3, Chloride Level 107, Carbon Dioxide Level 20L, Anion Gap 10, Blood Urea Nitrogen 39H, Creatinine 2.39H, Estimat Glomerular Filtration Rate 21, BUN/Creatinine Ratio 16, Glucose Level 124H, Calcium Level 8.8 08/24/17 10:10: Urine Color YELLOW, Urine Clarity SLIGHTLY CLOUDY, Urine pH 6.5, Urine Specific [place] 1.005L, Urine Protein 2+H, Urine Glucose (UA) NEGATIVE, Urine Ketones NEGATIVE, Urine Nitrite NEGATIVE, Urine Bilirubin NEGATIVE, Urine Urobilinogen NORMAL, Urine Leukocyte Esterase 3+H, Urine RBC (Auto) 2+H, Urine RBC RARE, Urine WBC 25-50H, Urine Squamous Epithelial Cells 10-25H, Urine Crystals NONE, Urine Bacteria FEWH, Urine Casts NONE, Urine Mucus NEGATIVE, Urine Culture Indicated YES 08/24/17 11:35: Glucometer 170H 08/24/17 16:10: Glucometer 112H 08/24/17 20:27: Glucometer 229H 08/25/17 05:25: Glucometer 131H 08/25/17 06:11: White Blood Count 6.9, Red Blood Count 3.59L, Hemoglobin 10.2L, Hematocrit 33L, Mean Corpuscular Volume 91, Mean Corpuscular Hemoglobin 28, Mean Corpuscular Hemoglobin Concent 31L, Red Cell Distribution Width 18.7H, Platelet Count 331, Mean Platelet Volume 9.4, Sodium Level 136, Potassium Level 4.4, Chloride Level 108H, Carbon Dioxide Level 20L, Anion Gap 8, Blood Urea Nitrogen 42H, Creatinine 2.33H, Estimat Glomerular Filtration Rate 22, BUN/Creatinine Ratio 18 , Glucose Level 126H, Calcium Level 8.6 08/25/17 11:46: Glucometer 177H 08/25/17 16:37: Glucometer 195H 08/25/17 22:21: Glucometer 237H 08/26/17 05:43: Glucometer 184H Microbiology 08/24/17 Urine Culture - Final, Complete See Comments Sent To [facility] Assessment/Plan Assessment and Plan General debil secondary to acute on chronic kidney D with BUN/CR stable Type 2 DM E coli UTI Cellulitis rt leg chronic YUDY HTN controlled A FIB controlled Acute on chronic daistolic CHF compenstated Tobaccoism abstaining on Nicotine GUM Plan Continue PT/OT Recheck Labs Monday08-28-17 see orders (1) Renal failure (ARF), acute on chronic Status: Acute Co-Morbidities that are continuing to impact the rehab process: (include details ) IRMA ESPINOZA MD Aug 26, 2017 08:26
[2017-08-26] MEDS: DULoxetine 30 MG (CYMBALTA) CAP PO SCH (09:35)
[2017-08-26] MEDS: APIXABAN 5 MG (ELIQUIS) TABLET PO SCH ×2 (09:35→20:30)
[2017-08-26] MEDS: AMIODARONE 200 MG (CORDARONE) TAB PO SCH (09:35)
[2017-08-26] MEDS: CLOPIDOGREL 75 MG (PLAVIX) TABLET PO SCH (09:35)
[2017-08-26] MEDS: CARVEDILOL 3.125 MG (COREG) TABLET PO SCH ×2 (09:35→20:30)
[2017-08-26] MEDS: inSUlin DETERMIR 1 UNIT/0.01 ML (LEVEMIR) CHARGE PER UNIT SQ SCH ×2 (09:36→21:24)
[2017-08-26] MEDS: GABAPENTIN 400 MG (NEURONTIN) CAP PO SCH ×3 (09:36→20:30)
[2017-08-26] MEDS: NYSTATIN CREAM (MYCOSTATIN) 30 GM TUBE TP SCH ×2 (09:38→20:30)
[2017-08-26] MEDS: GENTAMICIN 0.1% CREAM TP SCH ×3 (09:38→20:35)
--- NOTE | 2017-08-26 11:48 | Physical Therapy Daily Note ---
PT Daily Note-Current Subjective Pt sleeping in W/C upon arrival. Pt agreeble to PT. Pt denies pain, requests BR privileges. Mental Status Patient Orientation: Person, Place, Situation Transfers Functional [place] Measure 0=Not Assessed/NA 4=Minimal Assistance 1=Total Assistance 5=Supervision or Setup 2=Maximal Assistance 6=Modified [place] 3=Moderate Assistance 7=Complete IndependenceIRFPAI Quality Coding Scale 6 Independent with activity with or without an assistive device 5 Patient requires set up or clean up by helper. Patient completes activity by themselves 4 Supervision or touching assist (CGA). [place] provide cues , steadying assist 3 The helper provides less than half the effort to complete the activity 2 The helper provides more than half the effort to complete the activity 1 Dependent. The helper does all the effort to complete an activity 7 Patient refused to complete or attempt activity 9 The patient did not perform the activity before the current illness or injury 88 Not attempted due to Medical conditions or safety concerns Weight Bearing Right Lower Extremity: Right Weight Bearing/Tolerated Left Lower Extremity: Left Weight Bearing/Tolerated Gait Training Gait Assistive Device: FWW Pt seated with prosthetic leg on upon arrival. Pt donned (R) tennis shoe (I). Pt amb with FWW and CGA 1 x 20ft, 1 x 60ft, 1 x 22ft. Pt required f/u of w/c and sat down to rest as needed Exercises NuStep Minutes: 5 NuStep Workload: 4 Treatments Pt requested BR privileges, BR use mod (I) Assessment Current Status: Good Progress Pt leticia above well. Pt back to room seated in w/c with call light and all needs met. PT Short Term Goals Short Term Goals Time Frame: Aug 30, 2017 Gait (FIM): 2 Gait Distance Comment: 50' Gait Level of Assist: 4 Gait Assistive Device: FWW Wheelchair Distance: 150'x2 PT [facility] Goals Auto Dealer Goals PT Auto Dealer Goals Time Frame: Sep 13, 2017 Transfers (B,C,W/C) (FIM): 6 Sit to Lying (QC): 6 Lying-Sitting on Side/Bed(QC): 6 Sit to Stand (QC): 6 Rollin Roll Left to Right (QC): 6 Chair/Pon-ns-Vnput Xfer(QC): 6 Car Transfer (QC): 6 Gait (FIM): 2 Distance: 100' Walk 10 feet (QC): 4 Walk 10ft-Uneven Surface(QC): 4 Walk 50ft with 2 Turns (QC): 4 Gait Level of Assist: 5 Gait Assistive Device: FWW Wheelchair (FIM): 6 Stairs (FIM): 1 # of Steps: 1 1 Step (curb) (QC): 4 Stairs Level Of Assist: 4 PT Plan Treatment/Plan Treatment Plan: Continue Plan of Care Treatment Plan: Bed Mobility, Education, Functional Activity Mahad, Functional Strength, Group Therapy, Gait, Safety, Therapeutic Exercise, Transfers Treatment Duration: Sep 13, 2017 Frequency: At least 5 of 7 days/Wk (IRF) Estimated Hrs Per Day: 1.5 hours per day Patient and/or Family Agrees t: Yes Time/GCodes Time In: 900 Time Out: 930 Total Billed Treatment Time: 30 Total Billed Treatment 1, gait x 1, FA x 1 DANDY TERRY CPTA Aug 26, 2017 11:48
[2017-08-26 18:00] VITALS: BP 104/67
[2017-08-26 20:29] VITALS: BP 110/73
[2017-08-26] MEDS: SIMvastatin 20 MG (ZOCOR) TAB PO SCH (20:30)
[2017-08-26] MEDS: ALPRAZolam 0.5 MG (XANAX) TAB PO PRN (21:23)
[2017-08-27] MEDS: inSUlin ASPART (NovoLOG) 1 UNIT/0.01 ML (CHARGE PER UNIT) SC SCH ×4 (05:29→20:41)
[2017-08-27 05:31] VITALS: BP 91/63
[2017-08-27] MEDS: CALCIUM ACETATE 667 MG CAP (PHOSLO) PO SCH ×3 (06:07→17:04)
[2017-08-27] MEDS: APIXABAN 5 MG (ELIQUIS) TABLET PO SCH ×2 (09:17→20:47)
[2017-08-27] MEDS: CLOPIDOGREL 75 MG (PLAVIX) TABLET PO SCH (09:17)
[2017-08-27] MEDS: AMIODARONE 200 MG (CORDARONE) TAB PO SCH (09:17)
[2017-08-27] MEDS: inSUlin DETERMIR 1 UNIT/0.01 ML (LEVEMIR) CHARGE PER UNIT SQ SCH ×2 (09:17→20:48)
[2017-08-27] MEDS: GABAPENTIN 400 MG (NEURONTIN) CAP PO SCH ×3 (09:17→20:48)
[2017-08-27] MEDS: DULoxetine 30 MG (CYMBALTA) CAP PO SCH (09:17)
[2017-08-27] MEDS: CARVEDILOL 3.125 MG (COREG) TABLET PO SCH ×2 (09:19→19:49)
[2017-08-27] MEDS: NYSTATIN CREAM (MYCOSTATIN) 30 GM TUBE TP SCH ×2 (09:19→20:48)
[2017-08-27] MEDS: GENTAMICIN 0.1% CREAM TP SCH ×3 (09:19→20:49)
[2017-08-27] MEDS: ALPRAZolam 0.5 MG (XANAX) TAB PO PRN ×2 (11:55→20:54)
[2017-08-27 17:51] VITALS: BP 101/78
[2017-08-27 19:50] VITALS: BP 102/59
[2017-08-27] MEDS: SIMvastatin 20 MG (ZOCOR) TAB PO SCH (20:47)
[2017-08-28 05:04] VITALS: BP 107/72
[2017-08-28] MEDS: inSUlin ASPART (NovoLOG) 1 UNIT/0.01 ML (CHARGE PER UNIT) SC SCH ×4 (05:27→20:51)
[2017-08-28 05:57] LABS: HEMOGLOBIN 10.2 G/DL (11.5-16.0); MEAN PLATELET VOLUME 9.3 FL (7.4-10.4); RED BLOOD COUNT 3.53 10^6/uL (4.35-5.85); RED CELL DISTRIBUTION WIDTH 18.3 % (10.0-14.5); WHITE BLOOD COUNT 6.7 10^3/uL (4.3-11.0)
[2017-08-28 06:19] LABS: ALBUMIN 3.7 GM/DL (3.2-4.5); BILIRUBIN,TOTAL 0.5 MG/DL (0.1-1.0); CALCIUM 8.1 MG/DL (8.5-10.1); CREATININE SERUM 2.38 MG/DL (0.60-1.30); POTASSIUM 5.2 MMOL/L (3.6-5.0); TOTAL PROTEIN 7.1 GM/DL (6.4-8.2)
[2017-08-28] MEDS: CALCIUM ACETATE 667 MG CAP (PHOSLO) PO SCH ×3 (06:20→18:28)
--- NOTE | 2017-08-28 07:47 | Progress Note (SOAP) ---
Subjective Time Seen by Provider: 07:40 Subjective/Events-last exam Debility. Renal insufficiency. Diabetes. Creatinine 2.38. Patient gained 7-1/2 pounds. Patient states Lasix did not work good in [facility] Objective Exam Vital Signs Date Time Temp Pulse Resp B/P (MAP) Pulse Ox O2 Delivery O2 Flow Rate FiO2 08/28/17 05:04 97.4 78 20 107/72 (84) 95 Room Air 08/27/17 21:00 Room Air 08/27/17 19:50 75 102/59 (73) 08/27/17 17:51 96.6 82 16 101/78 (86) 93 Room Air 08/27/17 09:06 Room Air I & O 08/28/17 07:00 Intake Total 3535 ml Balance 3535 ml Capillary Refill : General Appearance: No Apparent Distress HEENT: Normal ENT Inspection Neck: Full Range of Motion, Normal Inspection Results Lab Laboratory Tests 08/28/17 05:47 Laboratory Tests 08/27/17 11:22: Glucometer 160H 08/27/17 16:03: Glucometer 294H 08/27/17 20:14: Glucometer 162H 08/28/17 05:24: Glucometer 120H 08/28/17 05:47: White Blood Count 6.7, Red Blood Count 3.53L, Hemoglobin 10.2L, Hematocrit 32L, Mean Corpuscular Volume 91, Mean Corpuscular Hemoglobin 29, Mean Corpuscular Hemoglobin Concent 32, Red Cell Distribution Width 18.3H, Platelet Count 319, Mean Platelet Volume 9.3, Sodium Level 133L, Potassium Level 5.2H, Chloride Level 106, Carbon Dioxide Level 18L, Anion Gap 9, Blood Urea Nitrogen 45H, Creatinine 2.38H, Estimat Glomerular Filtration Rate 21, BUN/Creatinine Ratio 19 , Glucose Level 112H, Calcium Level 8.1L, Total Bilirubin 0.5, Aspartate Amino Transf (AST/SGOT) 12, Alanine Aminotransferase (ALT/SGPT) 15, Alkaline Phosphatase 109, Total Protein 7.1, Albumin 3.7 Microbiology 08/24/17 Urine Culture - Final, Complete See Comments Sent To [facility] Assessment/Plan Assessment/Plan Assess & Plan/Chief Complaint Debility. Acute on chronic renal failure. Atrial fibrillation. Diabetes. BKA left. Sleep apnea obstructive. . 08/25/17. Debility. Acute on chronic renal failure. Atrial fibrillation. Diabetes. BKA. Obstructive sleep apnea. Patient feels of foot is slightly swollen Patient working hard yesterday Clinical Quality Measures DVT/VTE Risk/Contraindication: Risk Factor Score Per Nursin RFS Level Per Nursing on Admit: 4+=Very High URSULA RENEE DO Aug 28, 2017 07:47
[2017-08-28] MEDS: CLOPIDOGREL 75 MG (PLAVIX) TABLET PO SCH (08:18)
[2017-08-28] MEDS: CARVEDILOL 3.125 MG (COREG) TABLET PO SCH ×2 (08:18→20:51)
[2017-08-28] MEDS: AMIODARONE 200 MG (CORDARONE) TAB PO SCH (08:18)
[2017-08-28] MEDS: APIXABAN 5 MG (ELIQUIS) TABLET PO SCH ×2 (08:18→20:51)
[2017-08-28] MEDS: inSUlin DETERMIR 1 UNIT/0.01 ML (LEVEMIR) CHARGE PER UNIT SQ SCH ×2 (08:18→20:51)
[2017-08-28] MEDS: DULoxetine 30 MG (CYMBALTA) CAP PO SCH (08:18)
[2017-08-28] MEDS: GABAPENTIN 400 MG (NEURONTIN) CAP PO SCH ×3 (08:18→20:51)
[2017-08-28] MEDS: NYSTATIN CREAM (MYCOSTATIN) 30 GM TUBE TP SCH ×2 (08:19→20:52)
[2017-08-28] MEDS: GENTAMICIN 0.1% CREAM TP SCH ×3 (08:22→20:54)
--- NOTE | 2017-08-28 09:31 | Physical Therapy Daily Note ---
PT Daily Note-Current Subjective Pt. agrees to Rx. Reviewed her history since her last stay in this rehab. Pt. states her says he isnt going to empty the BSC any more so I have to start walking. Pt. indicated she wasnt able to get in to out patient therapy quickly enough after receiving her prosthesis and thats why she now has a contracture. This COVER MARKER then instructed and educated pt that maintaining ROM and strength is patient responsibility the rest of her life so that she might be able to ambulate etc Pain Numeric Pain Scale: 2 Location: Left Location Body Site: Knee Pain Description: Pressure Comment: discomfort with stretching Mental Status Patient Orientation: Normal For Age Attachments: Other-See Comments (prosthesis left knee) Transfers Functional [place] Measure 0=Not Assessed/NA 4=Minimal Assistance 1=Total Assistance 5=Supervision or Setup 2=Maximal Assistance 6=Modified [place] 3=Moderate Assistance 7=Complete IndependenceIRFPAI Quality Coding Scale 6 Independent with activity with or without an assistive device 5 Patient requires set up or clean up by helper. Patient completes activity by themselves 4 Supervision or touching assist (CGA). [place] provide cues , steadying assist 3 The helper provides less than half the effort to complete the activity 2 The helper provides more than half the effort to complete the activity 1 Dependent. The helper does all the effort to complete an activity 7 Patient refused to complete or attempt activity 9 The patient did not perform the activity before the current illness or injury 88 Not attempted due to Medical conditions or safety concerns Transfers (B, C, W/C) (FIM): 5 Scootin Rollin Supine to/from Sit: 5 Sit to/from Stand: 5 Weight Bearing Right Lower Extremity: Right Weight Bearing/Tolerated Left Lower Extremity: Left Weight Bearing/Tolerated Gait Training Does the Patient Walk?: Yes Gait (FIM): 1 Distance (FIM): 1=up to 49 ft (20ftx3) Gait Level of Assist: 4 Gait Persons Needed: 1 Gait Assistive Device: FWW pt. c/o it feels like her ankle on prosthesis is twisted. This is likely b/c pt. 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 Gait is somewhat risky and forces weight on residual limb in unnatural way Wheelchair Training Does the Pt Use a Wheelchair?: Yes Wheelchair (FIM): 6 Wheelchair Level of Assist: 6 Type of Wheelchair: Manual Exercises Supine Ex: Quad Set, Rolling, Glut sets, Heel Slides, Short Arc Quads, Scooting , Straight leg raise, Hip abd/add Supine Reps: 20 (x2) Seated Therapy Exercises: Sit to stand, Long arc quads Seated Reps: 12 Treatments side lying and prone hip extension and knee flexion as well as sustained stretching in sup and prone using half sphere at distal residual limb in supine and just above knee in prone all ti stretch for extension etc Assessment Current Status: Fair Progress before Rx left knee flexion 20 degrees, after stretching 15-17 degrees PT Short Term Goals Short Term Goals Time Frame: Aug 30, 2017 Gait (FIM): 2 Gait Distance Comment: 50' Gait Level of Assist: 4 Gait Assistive Device: FWW Wheelchair Distance: 150'x2 PT [facility] Goals 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 PT [facility] Goals Time Frame: Sep 13, 2017 Transfers (B,C,W/C) (FIM): 6 Sit to Lying (QC): 6 Lying-Sitting on Side/Bed(QC): 6 Sit to Stand (QC): 6 Rollin Roll Left to Right (QC): 6 Chair/Hkc-xi-[place] Xfer(QC): 6 Car Transfer (QC): 6 Gait (FIM): 2 Distance: 100' Walk 10 feet (QC): 4 Walk 10ft-Uneven Surface(QC): 4 Walk 50ft with 2 Turns (QC): 4 Gait Level of Assist: 5 Gait Assistive Device: FWW Wheelchair (FIM): 6 Stairs (FIM): 1 # of Steps: 1 1 Step (curb) (QC): 4 Stairs Level Of Assist: 4 PT Plan Treatment/Plan Treatment Plan: Continue Plan of Care Treatment Plan: Bed Mobility, Education, Functional Activity Mahad, Functional Strength, Group Therapy, Gait, Safety, Therapeutic Exercise, Transfers Treatment Duration: Sep 13, 2017 Frequency: At least 5 of 7 days/Wk (IRF) Estimated Hrs Per Day: 1.5 hours per day Patient and/or Family Agrees t: Yes Safety Risks/Education Patient Education: Gait Training, Transfer Techniques, Correct Positioning, Disease Process, Safety Issues Teaching Recipient: Patient Teaching Methods: Demonstration, Discussion Response to Teaching: Verbalize Understanding, Return Demonstration, Reinforcement Needed pt. left with bilat LEs elevated on chair, LLE knee in ext with 10 lb weight. pt. instructed to take it off in 10 min but to repeat this each day 4-5 times Time/GCodes Time In: 800 Time Out: 930 Total Billed Treatment Time: 90 Total Billed Treatment 1,EXD45m,GT15m,FA30m G Codes Necessary: MARINO Roca COVER MARKER Aug 28, 2017 09:31
--- NOTE | 2017-08-28 13:32 | Occupational Ther Daily Note ---
OT Current Status-Daily Note Subjective No pain reported. Appearance Pt. is up in her chair. Agrees to shower. Mental Status/Objective Patient Orientation: Person, Place, Time, Situation Functional [place] Measure 0=Not Assessed/NA 4=Minimal Assistance 1=Total Assistance 5=Supervision or Setup 2=Maximal Assistance 6=Modified [place] 3=Moderate Assistance 7=Complete [place] ADL-Treatment Functional [place] Measure 0=Not Assessed/NA 4=Minimal Assistance 1=Total Assistance 5=Supervision or Setup 2=Maximal Assistance 6=Modified [place] 3=Moderate Assistance 7=Complete IndependenceIRFPAI Quality Coding Scale 6 Independent with activity with or without an assistive device 5 Patient requires set up or clean up by helper. Patient completes activity by themselves 4 Supervision or touching assist (CGA). [place] provide cues , steadying assist 3 The helper provides less than half the effort to complete the activity 2 The helper provides more than half the effort to complete the activity 1 Dependent. The helper does all the effort to complete an activity 7 Patient refused to complete or attempt activity 9 The patient did not perform the activity before the current illness or injury 88 Not attempted due to Medical conditions or safety concerns Grooming (FIM): 6 (At wheelchair level.) Oral Hygiene (QC): 6 Bathing (FIM): 5 Shower/Bathe Self (QC): 5 (SBA to shower self.) Upper Body (FIM): 5 (Set up for shirt.) Upper Body Dressing (QC): 5 Lower Body Dressing (FIM): 3 (Min assist to thread right LE. Assist to don JH hose and shoe. Assist in stance to balance self to pull pants up. Pt. utilized AE for this.) Lower Body Dressing (QC): 3 On/Off Footwear (QC): 2 Toileting (FIM): 4 Toileting Hygiene (QC): 4 Transfers (B, C, W/C) (FIM): 4 Toilet/Commode Transfer (FIM): 4 Toilet Transfer (QC): 4 Shower Transfer(FIM): 3 (Pt. was able to stand and pivot out of wheelchair to shower chair. However, after shower, pt. had great difficulty pulling self up to stand and pivot to wheelchair. ) Other Treatment After shower task, pt. agreed to self propel wheelchair to therapy gym. Completed 15 minutes on armbike at mod resistance at slower pace. Became SOA but declined having sats taken, stating that she had increased fluid and that was causing SOA. Gained breath support and self propelled wheelchair back to room. Pt. no longer SOA. All needs met with legs propped up on chair. Education OT Patient Education: Correct positioning, Exercise program, Modified ADL techniques, Progress toward Goal/Update tx plan, Purpose of tx/functional activities, Reviewed precautions, Rehab process, Transfer techniques Teaching Recipient: Patient Teaching Methods: Demonstration, Discussion Response to Teaching: Verbalize Understanding, Return Demonstration OT Short Term Goals Short Term Goals Time Frame: Aug 30, 2017 Bathing(FIM): 5 Lower Body Dressing(FIM): 5 Toileting(FIM): 5 Toilet/Commode Transfer(FIM): 5 Additional Short Term Goals: 1-Demonstrate ADL Tasks, 2-Verbalize Understanding , 3-ImproveStrength/Mahad 1=Demonstrate adherence to instructed precautions during ADL tasks. 2=Patient will verbalize/demonstrate understanding of assistive devices/ modifications for ADL. 3=Patient will improve strength/tolerance for activity to enable patient to perform ADL's. OT Correction Goals Technical Rep Goals Time Frame: Sep 08, 2017 Eating (FIM): 7 Eating (QC): 6 Groomin Oral Hygiene (QC): 6 Bathing(FIM): 6 Shower/Bathe Self (QC): 6 Upper Body Dressing(FIM): 6 Upper Body Dressing (QC): 6 Lower Body Dressing(FIM): 6 Lower Body Dressing (QC): 6 On/Off Footwear (QC): 6 Toileting(FIM): 6 Toileting Hygiene (QC): 6 Toilet/Commode Transfer(FIM): 6 Toilet/Commode Transfer (QC): 6 Shower Transfer(FIM): 5 Additional Goals: 1-Demonstrate ADL Tasks, 2-Verbalize Understanding, 3- ImproveStrength/Mahad 1=Demonstrate adherence to instructed precautions during ADL tasks. 2=Patient will verbalize/demonstrate understanding of assistive devices/ modifications for ADL. 3=Patient will improve strength/tolerance for activity to enable patient to perform ADL's. OT Education/Plan Problem List/Assessment Assessment: Decreased Activ Tolerance, Decreased UE Strength, Impaired Funct Balance, Impaired I ADL's, Impaired Self-Care Skills Pt would benefit from skilled OT to increase her independence in basic self care to allow her to safely return home with family after long hospitalization Discharge Recommendations Plan/Recommendations: Continue POC Therapy D/C Recommendations: Home w/ Family Support, Occupational Therapy Home Care Equpiment Recommendations-D/C: Hip Kit Treatment Plan/Plan of Care Treatment,Training & Education: Yes Patient would benefit from OT for education, treatment and training to promote independence in ADL's, mobility, safety and/or upper extremity function for ADL' s. Plan of Care: ADL Retraining, Functional Mobility, Group Exercise/Act as Ind ( education, exercise, activity tolerance, socialization, funct mobility), UE Funct Exercise/Act, UE Neuromus Re-Ed/Coord Treatment Duration: Sep 08, 2017 Frequency: At least 5 of 7 days/Wk (IRF) Estimated Hrs Per Day: 1.5 hours per day Agreement: Yes Rehab Potential: Good Time/GCodes Start Time: 10:15 Stop Time: 11:45 Total Time Billed (hr/min): 90 Billed Treatment Time 1, ADL x 60minutes, Ex x 15minutes,FA x 15minutes ALEXIS PAVON OT Aug 28, 2017 13:32
[2017-08-28] MEDS ORDERED: HYDROcodone/APAP 10 MG/325 MG (LORTAB) TAB PO PRN (16:45)
[2017-08-28 18:00] VITALS: BP 124/73
--- NOTE | 2017-08-28 18:02 | PM & R (SOAP) Progress Note ---
Subjective This was a face to face visit with the patient. Date Seen by Provider: Aug 28, 2017 Time Seen by Provider: 17:35 Subjective/Events-last exam Patient was seen in her room this evenimng Contacted over weekend by Nursing re WT Gain Diet changed and fluid retriction ordered Current laabs noted Patient with mildly elevated K and BUN CR stable.SW texted me re possible referrral to surgeon re relaese of Flex contractures BKA-Would try stretching first due to patients renal function will f/u with staff re this.Patient SBA for transfers. 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 Mild rt cellulitis of the leg) Neuro: Other (generalized weakness) Results Lab Data Laboratory Tests 08/25/17 22:21: Glucometer 237H 08/26/17 05:43: Glucometer 184H 08/26/17 11:39: Glucometer 225H 08/26/17 16:55: Glucometer 200H 08/26/17 21:02: Glucometer 210H 08/27/17 05:24: Glucometer 152H 08/27/17 11:22: Glucometer 160H 08/27/17 16:03: Glucometer 294H 08/27/17 20:14: Glucometer 162H 08/28/17 05:24: Glucometer 120H 08/28/17 05:47: White Blood Count 6.7, Red Blood Count 3.53L, Hemoglobin 10.2L, Hematocrit 32L, Mean Corpuscular Volume 91, Mean Corpuscular Hemoglobin 29, Mean Corpuscular Hemoglobin Concent 32, Red Cell Distribution Width 18.3H, Platelet Count 319, Mean Platelet Volume 9.3, Sodium Level 133L, Potassium Level 5.2H, Chloride Level 106, Carbon Dioxide Level 18L, Anion Gap 9, Blood Urea Nitrogen 45H, Creatinine 2.38H, Estimat Glomerular Filtration Rate 21, BUN/Creatinine Ratio 19 , Glucose Level 112H, Calcium Level 8.1L, Total Bilirubin 0.5, Aspartate Amino Transf (AST/SGOT) 12, Alanine Aminotransferase (ALT/SGPT) 15, Alkaline Phosphatase 109, Total Protein 7.1, Albumin 3.7 08/28/17 10:54: Glucometer 165H 08/28/17 15:55: Glucometer 162H Microbiology 08/24/17 Urine Culture - Final, Complete See Comments Sent To Rml Assessment/Plan Assessment and Plan general debil secondary to acute on chronic kidney D Fliud overload Diet changed and fluid retriction ordered Flexion Contracture BKA stretch Type 2 DM Ecoli UTI treated Cellulitis rt leg chronic YUDY HTN controlled A FIB controlled Acute on chronic Diastolic CHF compensated Tobaccoism on Nicotine GUM Plan Continue PT/OT 'Monitor wt and continue Fluid restriction F/U with DR Christina Monitor Labs Team Conference 08-30-17 (1) Renal failure (ARF), acute on chronic Status: Acute Co-Morbidities that are continuing to impact the rehab process: (include details ) IRMA ESPINOZA MD Aug 28, 2017 18:02
[2017-08-28] MEDS: SIMvastatin 20 MG (ZOCOR) TAB PO SCH (20:51)
[2017-08-28] MEDS ORDERED: ASPIRIN E.C. 81 MG (ECOTRIN) TAB PO SCH (21:00)
[2017-08-28] MEDS ORDERED: CREON PO SCH (21:00)
[2017-08-28] MEDS: ALPRAZolam 0.5 MG (XANAX) TAB PO PRN (22:47)
[2017-08-29 05:03] VITALS: BP 123/81
[2017-08-29 06:25] LABS: CALCIUM 8.2 MG/DL (8.5-10.1); CREATININE SERUM 2.31 MG/DL (0.60-1.30); POTASSIUM 4.9 MMOL/L (3.6-5.0)
[2017-08-29] MEDS: inSUlin ASPART (NovoLOG) 1 UNIT/0.01 ML (CHARGE PER UNIT) SC SCH ×4 (06:36→21:00)
[2017-08-29] MEDS: CALCIUM ACETATE 667 MG CAP (PHOSLO) PO SCH ×3 (06:36→16:39)
[2017-08-29] MEDS: CLOPIDOGREL 75 MG (PLAVIX) TABLET PO SCH (08:08)
[2017-08-29] MEDS: inSUlin DETERMIR 1 UNIT/0.01 ML (LEVEMIR) CHARGE PER UNIT SQ SCH ×2 (08:08→21:24)
[2017-08-29] MEDS: GABAPENTIN 400 MG (NEURONTIN) CAP PO SCH ×2 (08:08→21:18)
[2017-08-29] MEDS: DULoxetine 30 MG (CYMBALTA) CAP PO SCH (08:08)
[2017-08-29] MEDS: APIXABAN 5 MG (ELIQUIS) TABLET PO SCH ×2 (08:08→21:18)
[2017-08-29] MEDS: CARVEDILOL 3.125 MG (COREG) TABLET PO SCH ×2 (08:09→21:21)
[2017-08-29] MEDS: AMIODARONE 200 MG (CORDARONE) TAB PO SCH (08:09)
[2017-08-29] MEDS: NYSTATIN CREAM (MYCOSTATIN) 30 GM TUBE TP SCH ×2 (10:08→21:00)
[2017-08-29] MEDS: GENTAMICIN 0.1% CREAM TP SCH ×3 (10:08→21:31)
--- NOTE | 2017-08-29 12:33 | Physical Therapy Daily Note ---
PT Daily Note-Current Subjective Pt sitting in [facility] upon arrival. Pt agrees to PT for stretching and walking. Pain Numeric Pain Scale: 3 Location: Left Location Body Site: Knee Pain Description: Ache Mental Status Patient Orientation: Person, Place, Time, Situation Transfers Functional [place] Measure 0=Not Assessed/NA 4=Minimal Assistance 1=Total Assistance 5=Supervision or Setup 2=Maximal Assistance 6=Modified [place] 3=Moderate Assistance 7=Complete IndependenceIRFPAI Quality Coding Scale 6 Independent with activity with or without an assistive device 5 Patient requires set up or clean up by helper. Patient completes activity by themselves 4 Supervision or touching assist (CGA). [place] provide cues , steadying assist 3 The helper provides less than half the effort to complete the activity 2 The helper provides more than half the effort to complete the activity 1 Dependent. The helper does all the effort to complete an activity 7 Patient refused to complete or attempt activity 9 The patient did not perform the activity before the current illness or injury 88 Not attempted due to Medical conditions or safety concerns Scootin Rollin Roll Left to Right (QC): 4 Supine to/from Sit: 5 Sit to/from Stand: 4 Sit to Stand (QC): 4 Weight Bearing Right Lower Extremity: Right Weight Bearing/Tolerated Left Lower Extremity: Left Weight Bearing/Tolerated Gait Training Does the Patient Walk?: Yes Distance (FIM): 3=150 ft Distance: 175' Walk 10 feet (QC): 4 Walk 50 ft with 2 Turns(QC): 4 Walk 150 ft (QC): 4 Gait Level of Assist: 4 Gait Persons Needed: 1 Gait Assistive Device: FWW Pt walks slow & laboring breathing. Pt is anxious about LLE giving out on her. Pt fatigue & gets SOA easily. Wheelchair Training Does the Pt Use a Wheelchair?: Yes Wheelchair Distance: 3=150 ft Distance: 150' Wheelchair Level of Assist: 6 Wheel 50 ft with 2 turns (QC): 6 Wheel 150 ft (QC): 6 Type of Wheelchair: Manual Treatments Pt completes stretching for LLE due to amputation. Pt completes both sitting in [facility] with leg on twel & ankle weights on upper thigh as well laying prone with half bolster under L thigh. Pt ambulates in hallway & [facility] using FWW at [facility] for balance. Pt propels [facility] in hallway when fatigued from walking. Pt returns to room to use restroom and rest in [facility] at end of tx with all needs met. Assessment Current Status: Good Progress Pt fatigues & gets SOA easily. Pt is anxious about LLE buckling. PT Short Term Goals Short Term Goals Time Frame: Aug 30, 2017 Gait (FIM): 2 Gait Distance Comment: 50' Gait Level of Assist: 4 Gait Assistive Device: FWW Wheelchair Distance: 150'x2 PT Custodial Goals Custodial Goals PT Custodial Goals Time Frame: Sep 13, 2017 Transfers (B,C,W/C) (FIM): 6 Sit to Lying (QC): 6 Lying-Sitting on Side/Bed(QC): 6 Sit to Stand (QC): 6 Rollin Roll Left to Right (QC): 6 Chair/Rce-rx-Ephtz Xfer(QC): 6 Car Transfer (QC): 6 Gait (FIM): 2 Distance: 100' Walk 10 feet (QC): 4 Walk 10ft-Uneven Surface(QC): 4 Walk 50ft with 2 Turns (QC): 4 Gait Level of Assist: 5 Gait Assistive Device: FWW Wheelchair (FIM): 6 Stairs (FIM): 1 # of Steps: 1 1 Step (curb) (QC): 4 Stairs Level Of Assist: 4 PT Plan Problem List Problem List: Activity Tolerance, Functional Strength, Safety, Balance, Gait Treatment/Plan Treatment Plan: Continue Plan of Care Treatment Plan: Bed Mobility, Education, Functional Activity Mahad, Functional Strength, Group Therapy, Gait, Safety, Therapeutic Exercise, Transfers Treatment Duration: Sep 13, 2017 Frequency: At least 5 of 7 days/Wk (IRF) Estimated Hrs Per Day: 1.5 hours per day Patient and/or Family Agrees t: Yes Safety Risks/Education Patient Education: Gait Training, Correct Positioning, Safety Issues Teaching Recipient: Patient Teaching Methods: Discussion Response to Teaching: Verbalize Understanding Time/GCodes Time In: 1115 Time Out: 1215 Total Billed Treatment Time: 60 Total Billed Treatment 1, GT x2 (30m), WCH (10m) & FA (20m) G Codes Necessary: ALETHEA Hudson ADULT PROTECTIVE CASEWORKER Aug 29, 2017 12:33
--- NOTE | 2017-08-29 12:43 | Occupational Ther Daily Note ---
OT Current Status-Daily Note Subjective No pain reported. Appearance Pt. is up in her wheelchair. Pt. states that she dressed herself this morning. Declines showering but agrees to work with OT on other tasks. Mental Status/Objective Patient Orientation: Person, Place, Time, Situation Functional [place] Measure 0=Not Assessed/NA 4=Minimal Assistance 1=Total Assistance 5=Supervision or Setup 2=Maximal Assistance 6=Modified [place] 3=Moderate Assistance 7=Complete [place] ADL-Treatment Functional [place] Measure 0=Not Assessed/NA 4=Minimal Assistance 1=Total Assistance 5=Supervision or Setup 2=Maximal Assistance 6=Modified [place] 3=Moderate Assistance 7=Complete IndependenceIRFPAI Quality Coding Scale 6 Independent with activity with or without an assistive device 5 Patient requires set up or clean up by helper. Patient completes activity by themselves 4 Supervision or touching assist (CGA). [place] provide cues , steadying assist 3 The helper provides less than half the effort to complete the activity 2 The helper provides more than half the effort to complete the activity 1 Dependent. The helper does all the effort to complete an activity 7 Patient refused to complete or attempt activity 9 The patient did not perform the activity before the current illness or injury 88 Not attempted due to Medical conditions or safety concerns Transfers (B, C, W/C) (FIM): 4 (CGA with sit-stand and transfer, with and without prosthetic leg on.) Pt. able to self propel wheelchair to therapy gym. Went to parallel bars and practiced sit-stand with holding onto bar, then pushing up from wheelchair. Practiced weight shifting and rocking back and forth. Pt had increased difficulty with letting go of bar with left hand. Able to stabilize self better while holding with right hand. Pt. then took of prosthetic leg to practice sit-stands, as she will be doing in bathroom after toileting/ showering. Pt. able to stand up both ways, but does fatigue easily. Pt. and OT talked in depth regarding toilet at home and height. Pt. is able to get up from higher surface. However, her current toilet is low and difficult and pt. is unable to do this well. Practiced transferring to shower chair that simulated low toilet. Pt. unable to get up off this chair without rails, and from this level. Completed 15 minutes on armbike to increase overall strength. Pt. also donned 2 lb. wrist weights and self propelled around therapy area to increase overall strength. Pt. shown and educated on walker basket, walker trays, etc....Talked about home safety and kitchen safety. Pt. states that she will have someone with her most of the time. All needs met back in room. Education OT Patient Education: Correct positioning, Exercise program, Modified ADL techniques, Progress toward Goal/Update tx plan, Purpose of tx/functional activities, Reviewed precautions, Rehab process, Transfer techniques Teaching Recipient: Patient Teaching Methods: Demonstration, Discussion Response to Teaching: Verbalize Understanding, Return Demonstration OT Short Term Goals Short Term Goals Time Frame: Aug 30, 2017 Bathing(FIM): 5 Lower Body Dressing(FIM): 5 Toileting(FIM): 5 Toilet/Commode Transfer(FIM): 5 Additional Short Term Goals: 1-Demonstrate ADL Tasks, 2-Verbalize Understanding , 3-ImproveStrength/Mahad 1=Demonstrate adherence to instructed precautions during ADL tasks. 2=Patient will verbalize/demonstrate understanding of assistive devices/ modifications for ADL. 3=Patient will improve strength/tolerance for activity to enable patient to perform ADL's. OT Hat Stock Laminating Machine Operator Goals Hat Stock Laminating Machine Operator Goals Time Frame: Sep 08, 2017 Eating (FIM): 7 Eating (QC): 6 Groomin Oral Hygiene (QC): 6 Bathing(FIM): 6 Shower/Bathe Self (QC): 6 Upper Body Dressing(FIM): 6 Upper Body Dressing (QC): 6 Lower Body Dressing(FIM): 6 Lower Body Dressing (QC): 6 On/Off Footwear (QC): 6 Toileting(FIM): 6 Toileting Hygiene (QC): 6 Toilet/Commode Transfer(FIM): 6 Toilet/Commode Transfer (QC): 6 Shower Transfer(FIM): 5 Additional Goals: 1-Demonstrate ADL Tasks, 2-Verbalize Understanding, 3- ImproveStrength/Mahad 1=Demonstrate adherence to instructed precautions during ADL tasks. 2=Patient will verbalize/demonstrate understanding of assistive devices/ modifications for ADL. 3=Patient will improve strength/tolerance for activity to enable patient to perform ADL's. OT Education/Plan Problem List/Assessment Assessment: Decreased Activ Tolerance, Dependent Transfers, Impaired Funct Balance, Impaired I ADL's, Impaired Self-Care Skills Pt would benefit from skilled OT to increase her independence in basic self care to allow her to safely return home with family after long hospitalization Discharge Recommendations Plan/Recommendations: Continue POC Therapy D/C Recommendations: Home w/ Family Support Equpiment Recommendations-D/C: Toilet Riser with Rails Treatment Plan/Plan of Care Treatment,Training & Education: Yes Patient would benefit from OT for education, treatment and training to promote independence in ADL's, mobility, safety and/or upper extremity function for ADL' s. Plan of Care: ADL Retraining, Functional Mobility, Group Exercise/Act as Ind ( education, exercise, activity tolerance, socialization, funct mobility), UE Funct Exercise/Act, UE Neuromus Re-Ed/Coord Treatment Duration: Sep 08, 2017 Frequency: At least 5 of 7 days/Wk (IRF) Estimated Hrs Per Day: 1.5 hours per day Agreement: Yes Rehab Potential: Good Time/GCodes Start Time: 08:15 Stop Time: 09:45 Total Time Billed (hr/min): 90 Billed Treatment Time 1, FA x 60minutes, Ex x 30minutes ALEXIS PAVON OT Aug 29, 2017 12:43
--- NOTE | 2017-08-29 15:07 | Physical Therapy Daily Note ---
PT Daily Note-Current Subjective Pt sitting in [facility] upon arrival. Pt agrees to PT. Pain Numeric Pain Scale: 3 Location: Left Location Body Site: Knee Pain Description: Ache Mental Status Patient Orientation: Person, Place, Time, Situation Transfers Functional [place] Measure 0=Not Assessed/NA 4=Minimal Assistance 1=Total Assistance 5=Supervision or Setup 2=Maximal Assistance 6=Modified [place] 3=Moderate Assistance 7=Complete IndependenceIRFPAI Quality Coding Scale 6 Independent with activity with or without an assistive device 5 Patient requires set up or clean up by helper. Patient completes activity by themselves 4 Supervision or touching assist (CGA). [place] provide cues , steadying assist 3 The helper provides less than half the effort to complete the activity 2 The helper provides more than half the effort to complete the activity 1 Dependent. The helper does all the effort to complete an activity 7 Patient refused to complete or attempt activity 9 The patient did not perform the activity before the current illness or injury 88 Not attempted due to Medical conditions or safety concerns Scootin Supine to/from Sit: 5 Sit to/from Stand: 5 Sit to Lying (QC): 5 Sit to Stand (QC): 5 Weight Bearing Right Lower Extremity: Right Weight Bearing/Tolerated Left Lower Extremity: Left Weight Bearing/Tolerated Gait Training Does the Patient Walk?: Yes Distance (FIM): 7=309-03 ft Distance: 50' Walk 10 feet (QC): 5 Walk 50 ft with 2 Turns(QC): 5 Gait Level of Assist: 5 Gait Persons Needed: 1 Gait Assistive Device: FWW Pt walks short distance to restroom then back to bed. Wheelchair Training Does the Pt Use a Wheelchair?: Yes Type of Wheelchair: Manual Exercises Supine Ex: Ankle pumps, Quad Set, Glut sets, Straight leg raise, Hip abd/add Supine Reps: 15 Treatments Pt transfers from [facility] to standing using FWW at SBA. Pt ambulates to restroom then back to bed. Pt transfers from standing to EOB to Supine at SBA. Pt completes Supine Ex in bed to strength BLE for better endurance with ambulation. Pt resting Supine in bed at end of tx with all needs met. Assessment Current Status: Good Progress Pt gets SOA and reports thsi is due to increased fluid pt has. Pt recovers after short rest break & deep breathing technique. PT Short Term Goals Short Term Goals Time Frame: Aug 30, 2017 Gait (FIM): 2 Gait Distance Comment: 50' Gait Level of Assist: 4 Gait Assistive Device: FWW Wheelchair Distance: 150' PT Fpc Goals Jewelry Polisher Goals PT Fpc Goals Time Frame: Sep 13, 2017 Transfers (B,C,W/C) (FIM): 6 Sit to Lying (QC): 6 Lying-Sitting on Side/Bed(QC): 6 Sit to Stand (QC): 6 Rollin Roll Left to Right (QC): 6 Chair/Glm-hp-Rbens Xfer(QC): 6 Car Transfer (QC): 6 Gait (FIM): 2 Distance: 100' Walk 10 feet (QC): 4 Walk 10ft-Uneven Surface(QC): 4 Walk 50ft with 2 Turns (QC): 4 Gait Level of Assist: 5 Gait Assistive Device: FWW Wheelchair (FIM): 6 Stairs (FIM): 1 # of Steps: 1 1 Step (curb) (QC): 4 Stairs Level Of Assist: 4 PT Plan Problem List Problem List: Activity Tolerance, Functional Strength, Gait Treatment/Plan Treatment Plan: Continue Plan of Care Treatment Plan: Bed Mobility, Education, Functional Activity Mahad, Functional Strength, Group Therapy, Gait, Safety, Therapeutic Exercise, Transfers Treatment Duration: Sep 13, 2017 Frequency: At least 5 of 7 days/Wk (IRF) Estimated Hrs Per Day: 1.5 hours per day Patient and/or Family Agrees t: Yes Safety Risks/Education Patient Education: Gait Training, Transfer Techniques, Correct Positioning, Safety Issues Teaching Recipient: Patient Teaching Methods: Discussion Response to Teaching: Verbalize Understanding Time/GCodes Time In: 1415 Time Out: 1445 Total Billed Treatment Time: 30 Total Billed Treatment 1, EX (20m) & FA (10m) G Codes Necessary: ALETHEA Hudson HISTOLOGY MANAGER Aug 29, 2017 15:06
--- NOTE | 2017-08-29 15:09 | PM & R (SOAP) Progress Note ---
Subjective This was a face to face visit with the patient. Date Seen by Provider: Aug 29, 2017 Time Seen by Provider: 07:55 Subjective/Events-last exam Patient was seen in her room this AM Patient min assist for transfers Patient doing better with fluid retriction for Fluid overload Labs noted BUN/CR improving to baseline Objective Physician Exam Last Set of Vital Signs Vital Signs Date Time Temp Pulse Resp B/P (MAP) Pulse Ox O2 Delivery O2 Flow Rate FiO2 08/29/17 09:00 Room Air 08/29/17 05:03 96.8 85 19 123/81 (95) 98 Capillary Refill : I&O Intake and Output 08/29/17 00:00 Intake Total 1395 ml Output Total 2120 ml Balance -725 ml Intake Oral 1395 ml Output Urine Total 2120 ml # Voids 5 # Bowel Movements 1 General: Alert, Oriented X3, Cooperative, No Acute Distress HEENT: Atraumatic, PERRLA, EOMI, Mucous Memb Moist/[place] Neck: Supple, No JVD Lungs: Clear to Auscultation Heart: Regular Rate Abdomen: Normal Bowel Sounds, Soft, No Tenderness Extremities: Other (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3, Sodium Level 133L, Potassium Level 5.2H, Chloride Level 106, Carbon Dioxide Level 18L, Anion Gap 9, Blood Urea Nitrogen 45H, Creatinine 2.38H, Estimat Glomerular Filtration Rate 21, BUN/Creatinine Ratio 19 , Glucose Level 112H, Calcium Level 8.1L, Total Bilirubin 0.5, Aspartate Amino Transf (AST/SGOT) 12, Alanine Aminotransferase (ALT/SGPT) 15, Alkaline Phosphatase 109, Total Protein 7.1, Albumin 3.7 08/28/17 10:54: Glucometer 165H 08/28/17 15:55: Glucometer 162H 08/28/17 20:30: Glucometer 207H 08/29/17 05:31: Glucometer 138H 08/29/17 05:54: Sodium Level 135, Potassium Level 4.9, Chloride Level 108H, Carbon Dioxide Level 21, Anion Gap 6, Blood Urea Nitrogen 42H, Creatinine 2.31H, Estimat Glomerular Filtration Rate 22, BUN/Creatinine Ratio 18, Glucose Level 119H, Calcium Level 8.2L 08/29/17 11:00: Glucometer 160H Microbiology 08/24/17 Urine Culture - Final, Complete See Comments Sent To Rml Assessment/Plan Assessment and Plan General debil secondary to acute on chronic Kidney D Fluid overload improving with Fluid retriction Flex Contracture BKA-Stretch Type 2 DM E Coli UTI treated Cellulitis rt leg chronic YUDY HTN controlled A FIB controlled Acute on chronic diastolic CHF compensated Tobaccoism on Nicotine gum Plan ContinuePT/OT Team Conference tomorrow to discuss Full functional update and POC and ELOS Stretch for BKA flex contracture (1) Renal failure (ARF), acute on chronic Status: Acute Co-Morbidities that are continuing to impact the rehab process: (include details ) IRMA ESPINOZA MD Aug 29, 2017 15:09
[2017-08-29 16:28] VITALS: BP 107/75
[2017-08-29] MEDS: ACETAMINOPHEN 325 MG TABLET PO PRN (16:39)
[2017-08-29] MEDS: SIMvastatin 20 MG (ZOCOR) TAB PO SCH (21:22)
[2017-08-30 06:00] VITALS: BP 111/73
[2017-08-30] MEDS: inSUlin ASPART (NovoLOG) 1 UNIT/0.01 ML (CHARGE PER UNIT) SC SCH ×4 (06:00→21:06)
[2017-08-30] MEDS: CALCIUM ACETATE 667 MG CAP (PHOSLO) PO SCH ×3 (06:56→16:32)
--- NOTE | 2017-08-30 08:06 | Progress Note (SOAP) ---
Subjective Time Seen by Provider: 08:00 Subjective/Events-last exam Patient gained another 5 pounds. Patient is not cooperative. Patient states she'll try with the help of her Objective Exam Vital Signs Date Time Temp Pulse Resp B/P (MAP) Pulse Ox O2 Delivery O2 Flow Rate FiO2 08/30/17 06:00 97.8 86 16 111/73 (86) 95 Room Air 08/29/17 21:00 Room Air 08/29/17 16:28 98.0 82 16 107/75 (86) 92 Room Air 08/29/17 09:00 Room Air I & O 08/30/17 07:00 Intake Total 1890 ml Output Total 3850 ml Balance -1960 ml Capillary Refill : General Appearance: No Apparent Distress HEENT: Normal ENT Inspection Neck: Normal Inspection Respiratory: Normal Breath Sounds, No Accessory Muscle Use, No Respiratory Distress Results Lab Laboratory Tests 08/29/17 11:00: Glucometer 160H 08/29/17 16:05: Glucometer 181H 08/29/17 21:16: Glucometer 175H 08/30/17 05:49: Glucometer 120H Microbiology 08/24/17 Urine Culture - Final, Complete See Comments Sent To [facility] Assessment/Plan Assessment/Plan Assess & Plan/Chief Complaint Debility. Acute on chronic renal failure. Atrial fibrillation. Diabetes. BKA left. Sleep apnea obstructive. . 08/25/17. Debility. Acute on chronic renal failure. Atrial fibrillation. Diabetes. BKA. Obstructive sleep apnea. Patient feels of foot is slightly swollen Patient working hard yesterday. . 08/28/17. Debility. Acute and chronic renal failure. Atrial fibrillation. Diabetes Patient gained 5 pounds. Clinical Quality Measures DVT/VTE Risk/Contraindication: Risk Factor Score Per Nursin RFS Level Per Nursing on Admit: 4+=Very High URSULA RENEE DO Aug 30, 2017 08:05
--- NOTE | 2017-08-30 08:36 | PM & R (SOAP) Progress Note ---
Subjective This was a face to face visit with the patient. Date Seen by Provider: Aug 30, 2017 Time Seen by Provider: 07:50 Subjective/Events-last exam Patient was seen in her room this AM Patient SBA for transfers.patient states that she slept OK Objective Physician Exam Last Set of Vital Signs Vital Signs Date Time Temp Pulse Resp B/P (MAP) Pulse Ox O2 Delivery O2 Flow Rate FiO2 08/30/17 06:00 97.8 86 16 111/73 (86) 95 Room Air Capillary Refill : I&O Intake and Output 08/30/17 00:00 Intake Total 1915 ml Output Total 3300 ml Balance -1385 ml Intake Oral 1915 ml Output Urine Total 3300 ml # Voids 1 # Bowel Movements 1 General: Alert, Oriented X3, Cooperative, No Acute Distress HEENT: Atraumatic, PERRLA, EOMI, Mucous Memb Moist/[place] Neck: Supple, No JVD Lungs: Clear to Auscultation Heart: Regular Rate Abdomen: Normal Bowel Sounds, Soft, No Tenderness Extremities: Other (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 Mild rt cellulitis of the leg) Neuro: Other (generalized weakness) Results Lab Data Laboratory Tests 08/27/17 11:22: Glucometer 160H 08/27/17 16:03: Glucometer 294H 08/27/17 20:14: Glucometer 162H 08/28/17 05:24: Glucometer 120H 08/28/17 05:47: White Blood Count 6.7, Red Blood Count 3.53L, Hemoglobin 10.2L, Hematocrit 32L, Mean Corpuscular Volume 91, Mean Corpuscular Hemoglobin 29, Mean Corpuscular Hemoglobin Concent 32, Red Cell Distribution Width 18.3H, Platelet Count 319, Mean Platelet Volume 9.3, Sodium Level 133L, Potassium Level 5.2H, Chloride Level 106, Carbon Dioxide Level 18L, Anion Gap 9, Blood Urea Nitrogen 45H, Creatinine 2.38H, Estimat Glomerular Filtration Rate 21, BUN/Creatinine Ratio 19 , Glucose Level 112H, Calcium Level 8.1L, Total Bilirubin 0.5, Aspartate Amino Transf (AST/SGOT) 12, Alanine Aminotransferase (ALT/SGPT) 15, Alkaline Phosphatase 109, Total Protein 7.1, Albumin 3.7 08/28/17 10:54: Glucometer 165H 08/28/17 15:55: Glucometer 162H 08/28/17 20:30: Glucometer 207H 08/29/17 05:31: Glucometer 138H 08/29/17 05:54: Sodium Level 135, Potassium Level 4.9, Chloride Level 108H, Carbon Dioxide Level 21, Anion Gap 6, Blood Urea Nitrogen 42H, Creatinine 2.31H, Estimat Glomerular Filtration Rate 22, BUN/Creatinine Ratio 18, Glucose Level 119H, Calcium Level 8.2L 08/29/17 11:00: Glucometer 160H 08/29/17 16:05: Glucometer 181H 08/29/17 21:16: Glucometer 175H 08/30/17 05:49: Glucometer 120H Microbiology 08/24/17 Urine Culture - Final, Complete See Comments Sent To Rml Assessment/Plan Assessment and Plan General debil secondary to acute on chronic Kidney D Fluid overload improving with fluid restriction Flex contracture Left BKA stretch Type 2 DM E coli UTI treated Cellulitis rt leg chronic YUDY HTN controlled A FIB controlled Acute on chronic diastolic CHF compensated Tobaccoism abstaining Plan Continue PT/OT Team Conference later today-see report for full functional update and POC and ELOS (1) Renal failure (ARF), acute on chronic Status: Acute Co-Morbidities that are continuing to impact the rehab process: (include details ) IRMA ESPINOZA MD Aug 30, 2017 08:36
[2017-08-30] MEDS: AMIODARONE 200 MG (CORDARONE) TAB PO SCH (08:45)
[2017-08-30] MEDS: GABAPENTIN 400 MG (NEURONTIN) CAP PO SCH ×2 (08:45→21:12)
[2017-08-30] MEDS: CLOPIDOGREL 75 MG (PLAVIX) TABLET PO SCH (08:46)
[2017-08-30] MEDS: APIXABAN 5 MG (ELIQUIS) TABLET PO SCH ×2 (08:46→21:12)
[2017-08-30] MEDS: CARVEDILOL 3.125 MG (COREG) TABLET PO SCH ×2 (08:46→21:12)
[2017-08-30] MEDS: DULoxetine 30 MG (CYMBALTA) CAP PO SCH (08:46)
[2017-08-30] MEDS: inSUlin DETERMIR 1 UNIT/0.01 ML (LEVEMIR) CHARGE PER UNIT SQ SCH ×2 (08:46→21:12)
[2017-08-30] MEDS: GENTAMICIN 0.1% CREAM TP SCH ×3 (08:49→21:13)
[2017-08-30] MEDS: NYSTATIN CREAM (MYCOSTATIN) 30 GM TUBE TP SCH ×2 (08:49→21:13)
--- NOTE | 2017-08-30 12:01 | Occupational Ther Daily Note ---
OT Current Status-Daily Note Subjective Pt seen in room, up in w/c, agreeable to OT. No pain mentioned but discomfort observed when putting R shoes/sock on (due to edema) Appearance Alert, cooperative Mental Status/Objective Functional [place] Measure 0=Not Assessed/NA 4=Minimal Assistance 1=Total Assistance 5=Supervision or Setup 2=Maximal Assistance 6=Modified [place] 3=Moderate Assistance 7=Complete [place] ADL-Treatment Pt positioned w/c at shower for transfer and needed CGA transferred on/off shower bench (seat raised up with two blankets). Bathed herself, including turning water on and off and retrieving towels. Groomed indep at sink, w/c level. Dressed upper body mod I and needed CGA when standing with FWW to pull pants up. Cue to lock brakes. Stood close SBA when pulling pants up with prosthesis on. Setup with JH hose R LE. Struggled to put on sock and shoe R LE due to edema in LE and abdomen. All ADLs took longer than usual. Pt left up in w /c, all needs met. Functional [place] Measure 0=Not Assessed/NA 4=Minimal Assistance 1=Total Assistance 5=Supervision or Setup 2=Maximal Assistance 6=Modified [place] 3=Moderate Assistance 7=Complete IndependenceIRFPAI Quality Coding Scale 6 Independent with activity with or without an assistive device 5 Patient requires set up or clean up by helper. Patient completes activity by themselves 4 Supervision or touching assist (CGA). [place] provide cues , steadying assist 3 The helper provides less than half the effort to complete the activity 2 The helper provides more than half the effort to complete the activity 1 Dependent. The helper does all the effort to complete an activity 7 Patient refused to complete or attempt activity 9 The patient did not perform the activity before the current illness or injury 88 Not attempted due to Medical conditions or safety concerns Grooming (FIM): 7 ( Indep, w/c level, at sink) Bathing (FIM): 6 (Washed and dried all parts, shower bench, grab bar, hand held shower, long handled sponge. Turned water on/off and retrieved towel. ) Upper Body (FIM): 6 (Retrieved clean clothes, donned bra and shirt without help. ) Lower Body Dressing (FIM): 4 (CGA when standing to pull pants up without prosthesis, using FWW. SBA when standing with prosthesis on, FWW. Able to put prosthesis on herself. Diesel Engine Fitter) Shower Transfer(FIM): 4 (CGA getting in and out of shower, on/off bench, without prosthesis) Education OT Patient Education: Modified ADL techniques, Purpose of tx/functional activities, Safety issues, Transfer techniques Teaching Recipient: Patient Teaching Methods: Discussion Response to Teaching: Verbalize Understanding, Return Demonstration OT Short Term Goals Short Term Goals Time Frame: Aug 30, 2017 Bathing(FIM): 5 Lower Body Dressing(FIM): 5 Toileting(FIM): 5 Toilet/Commode Transfer(FIM): 5 Additional Short Term Goals: 1-Demonstrate ADL Tasks, 2-Verbalize Understanding , 3-ImproveStrength/Mahad 1=Demonstrate adherence to instructed precautions during ADL tasks. 2=Patient will verbalize/demonstrate understanding of assistive devices/ modifications for ADL. 3=Patient will improve strength/tolerance for activity to enable patient to perform ADL's. OT [facility] Goals Design Technology Teacher Goals Time Frame: Sep 08, 2017 Eating (FIM): 7 Eating (QC): 6 Groomin Oral Hygiene (QC): 6 Bathing(FIM): 6 Shower/Bathe Self (QC): 6 Upper Body Dressing(FIM): 6 Upper Body Dressing (QC): 6 Lower Body Dressing(FIM): 6 Lower Body Dressing (QC): 6 On/Off Footwear (QC): 6 Toileting(FIM): 6 Toileting Hygiene (QC): 6 Toilet/Commode Transfer(FIM): 6 Toilet/Commode Transfer (QC): 6 Shower Transfer(FIM): 5 Additional Goals: 1-Demonstrate ADL Tasks, 2-Verbalize Understanding, 3- ImproveStrength/Mahad 1=Demonstrate adherence to instructed precautions during ADL tasks. 2=Patient will verbalize/demonstrate understanding of assistive devices/ modifications for ADL. 3=Patient will improve strength/tolerance for activity to enable patient to perform ADL's. OT Education/Plan Problem List/Assessment Pt would benefit from skilled OT to increase her independence in basic self care to allow her to safely return home with family after long hospitalization Discharge Recommendations Plan/Recommendations: Continue POC Treatment Plan/Plan of Care Patient would benefit from OT for education, treatment and training to promote independence in ADL's, mobility, safety and/or upper extremity function for ADL' s. Plan of Care: ADL Retraining, Functional Mobility, Group Exercise/Act as Ind ( education, exercise, activity tolerance, socialization, funct mobility), UE Funct Exercise/Act, UE Neuromus Re-Ed/Coord Treatment Duration: Sep 08, 2017 Frequency: At least 5 of 7 days/Wk (IRF) Estimated Hrs Per Day: 1.5 hours per day Agreement: Yes Rehab Potential: Good Time/GCodes Start Time: 09:30 Stop Time: 10:30 Total Time Billed (hr/min): 60 Billed Treatment Time visit, 60 minutes ADL POLLY HELTON OT Aug 30, 2017 12:01
--- NOTE | 2017-08-30 12:20 | Physical Therapy Daily Note ---
PT Daily Note-Current Subjective Pt sitting in [facility] in Therapy Gym upon arrival. Pt agrees to PT and is motivated to improve ambulation. Pain Numeric Pain Scale: 5-Moderate Pain Mental Status Patient Orientation: Person, Place, Time, Situation Transfers Functional [place] Measure 0=Not Assessed/NA 4=Minimal Assistance 1=Total Assistance 5=Supervision or Setup 2=Maximal Assistance 6=Modified [place] 3=Moderate Assistance 7=Complete IndependenceIRFPAI Quality Coding Scale 6 Independent with activity with or without an assistive device 5 Patient requires set up or clean up by helper. Patient completes activity by themselves 4 Supervision or touching assist (CGA). [place] provide cues , steadying assist 3 The helper provides less than half the effort to complete the activity 2 The helper provides more than half the effort to complete the activity 1 Dependent. The helper does all the effort to complete an activity 7 Patient refused to complete or attempt activity 9 The patient did not perform the activity before the current illness or injury 88 Not attempted due to Medical conditions or safety concerns Scootin Sit to/from Stand: 5 Sit to Stand (QC): 5 Weight Bearing Right Lower Extremity: Right Weight Bearing/Tolerated Left Lower Extremity: Left Weight Bearing/Tolerated Gait Training Does the Patient Walk?: Yes Distance (FIM): 3=150 ft Distance: 150' with rest breaks Walk 10 feet (QC): 5 Walk 50 ft with 2 Turns(QC): 5 Walk 150 ft (QC): 4 Gait Level of Assist: 4 Gait Persons Needed: 1 Gait Assistive Device: FWW Pt walks a slow levon and still putting more WB through UE but LIFE SCIENCE RESEARCH ASSISTANT encourages pt to WB through LE more. Wheelchair Training Does the Pt Use a Wheelchair?: Yes Type of Wheelchair: Manual Exercises Seated Therapy Exercises: Ankle pumps, Long arc quads, Hip flexion, Kicking activity Seated Reps: 15 NuStep Minutes: 10 NuStep Workload: 5 Treatments Pt transfers from [facility] to [facility] using FWW at SBA. Pt uses NuStep for 10m at 5. Pt takes short rest before completing Seated Ex. Pt ambulates in hallway using FWW at close SBA. Pt takes a couple of rest breaks due to fatigue. Pt returns to room at end of tx to rest in [facility] with all needs met, call light next to pt. Assessment Pt continues to fatigue due to SOA due to increased fluid retention as well as WB through UE. PT Short Term Goals Short Term Goals Time Frame: Aug 30, 2017 Gait (FIM): 2 Gait Distance Comment: 50' Gait Level of Assist: 4 Gait Assistive Device: FWW Wheelchair Distance: 150' PT [employer] Software Developer Goals Halfway Goals PT Halfway Goals Time Frame: Sep 13, 2017 Transfers (B,C,W/C) (FIM): 6 Sit to Lying (QC): 6 Lying-Sitting on Side/Bed(QC): 6 Sit to Stand (QC): 6 Rollin Roll Left to Right (QC): 6 Chair/Tcd-kp-Quewh Xfer(QC): 6 Car Transfer (QC): 6 Gait (FIM): 2 Distance: 100' Walk 10 feet (QC): 4 Walk 10ft-Uneven Surface(QC): 4 Walk 50ft with 2 Turns (QC): 4 Gait Level of Assist: 5 Gait Assistive Device: FWW Wheelchair (FIM): 6 Stairs (FIM): 1 # of Steps: 1 1 Step (curb) (QC): 4 Stairs Level Of Assist: 4 PT Plan Problem List Problem List: Activity Tolerance, Functional Strength, Gait Treatment/Plan Treatment Plan: Continue Plan of Care Treatment Plan: Bed Mobility, Education, Functional Activity Mahad, Functional Strength, Group Therapy, Gait, Safety, Therapeutic Exercise, Transfers Treatment Duration: Sep 13, 2017 Frequency: At least 5 of 7 days/Wk (IRF) Estimated Hrs Per Day: 1.5 hours per day Patient and/or Family Agrees t: Yes Safety Risks/Education Patient Education: Gait Training, Transfer Techniques, Correct Positioning, Safety Issues Teaching Recipient: Patient Teaching Methods: Discussion Response to Teaching: Verbalize Understanding Time/GCodes Time In: 1100 Time Out: 1200 Total Billed Treatment Time: 60 Total Billed Treatment 1, GT x2 (30m) & EX x2 (30m) G Codes Necessary: ALETHEA Hudson LIFE SCIENCE RESEARCH ASSISTANT Aug 30, 2017 12:20
--- NOTE | 2017-08-30 14:45 | Physical Therapy Daily Note ---
PT Daily Note-Current Subjective Pt sitting in [facility] in Therapy Commons after just finishing with OT upon arrival. Pt agrees to PT. Mental Status Patient Orientation: Person, Place, Time, Situation Transfers Functional [place] Measure 0=Not Assessed/NA 4=Minimal Assistance 1=Total Assistance 5=Supervision or Setup 2=Maximal Assistance 6=Modified [place] 3=Moderate Assistance 7=Complete IndependenceIRFPAI Quality Coding Scale 6 Independent with activity with or without an assistive device 5 Patient requires set up or clean up by helper. Patient completes activity by themselves 4 Supervision or touching assist (CGA). [place] provide cues , steadying assist 3 The helper provides less than half the effort to complete the activity 2 The helper provides more than half the effort to complete the activity 1 Dependent. The helper does all the effort to complete an activity 7 Patient refused to complete or attempt activity 9 The patient did not perform the activity before the current illness or injury 88 Not attempted due to Medical conditions or safety concerns Sit to/from Stand: 5 Sit to Stand (QC): 5 Weight Bearing Right Lower Extremity: Right Weight Bearing/Tolerated Left Lower Extremity: Left Weight Bearing/Tolerated Gait Training Does the Patient Walk?: Yes Distance (FIM): 3=150 ft Distance: 200' Walk 10 feet (QC): 5 Walk 50 ft with 2 Turns(QC): 5 Walk 150 ft (QC): 5 Gait Level of Assist: 5 Gait Persons Needed: 1 Stair Training Stair Training: Handrails/: 2 handrails #of Steps: 2 1 Step (curb) (QC): 4 Stairs: Pattern: Step to Level of Assist: 4 Pt completes pink single step x2 with rest break between. Treatments Pt transfers from [facility] to standing at //bars. Pt completes single pink step ( step up) x2. Pt returns to [facility] for short rest. Pt ambulates in hallway using FWW at close SBA. Pt returns to room after walk to rest, all needs met including call light in hand. Assessment Current Status: Good Progress Pt continues to increase distance of ambulation but struggles with SOA due to fluid retention. PT Short Term Goals Short Term Goals Time Frame: Aug 30, 2017 Gait (FIM): 2 Gait Distance Comment: 50' Gait Level of Assist: 4 Gait Assistive Device: FWW Wheelchair Distance: 150' PT Detention Goals Detention Goals PT Detention Goals Time Frame: Sep 13, 2017 Transfers (B,C,W/C) (FIM): 6 Sit to Lying (QC): 6 Lying-Sitting on Side/Bed(QC): 6 Sit to Stand (QC): 6 Rollin Roll Left to Right (QC): 6 Chair/Qlw-wp-Gfker Xfer(QC): 6 Car Transfer (QC): 6 Gait (FIM): 2 Distance: 100' Walk 10 feet (QC): 4 Walk 10ft-Uneven Surface(QC): 4 Walk 50ft with 2 Turns (QC): 4 Gait Level of Assist: 5 Gait Assistive Device: FWW Wheelchair (FIM): 6 Stairs (FIM): 1 # of Steps: 1 1 Step (curb) (QC): 4 Stairs Level Of Assist: 4 PT Plan Problem List Problem List: Activity Tolerance, Functional Strength, Gait Treatment/Plan Treatment Plan: Continue Plan of Care Treatment Plan: Bed Mobility, Education, Functional Activity Mahad, Functional Strength, Group Therapy, Gait, Safety, Therapeutic Exercise, Transfers Treatment Duration: Sep 13, 2017 Frequency: At least 5 of 7 days/Wk (IRF) Estimated Hrs Per Day: 1.5 hours per day Patient and/or Family Agrees t: Yes Safety Risks/Education Patient Education: Gait Training, Steps, Correct Positioning, Disease Process Teaching Recipient: Patient Teaching Methods: Discussion Response to Teaching: Verbalize Understanding Time/GCodes Time In: 1400 Time Out: 1430 Total Billed Treatment Time: 30 Total Billed Treatment 1, GT (15m) & FA (15m) G Codes Necessary: ALETHEA Hudson FLOUR MIXER Aug 30, 2017 14:45
--- NOTE | 2017-08-30 15:08 | Occupational Ther Daily Note ---
OT Current Status-Daily Note Subjective Pt seen in room, up in w/c, agreeable to OT. No pain mentioned. Appearance Alert, cooperative Mental Status/Objective Functional [place] Measure 0=Not Assessed/NA 4=Minimal Assistance 1=Total Assistance 5=Supervision or Setup 2=Maximal Assistance 6=Modified [place] 3=Moderate Assistance 7=Complete [place] ADL-Treatment Functional [place] Measure 0=Not Assessed/NA 4=Minimal Assistance 1=Total Assistance 5=Supervision or Setup 2=Maximal Assistance 6=Modified [place] 3=Moderate Assistance 7=Complete IndependenceIRFPAI Quality Coding Scale 6 Independent with activity with or without an assistive device 5 Patient requires set up or clean up by helper. Patient completes activity by themselves 4 Supervision or touching assist (CGA). [place] provide cues , steadying assist 3 The helper provides less than half the effort to complete the activity 2 The helper provides more than half the effort to complete the activity 1 Dependent. The helper does all the effort to complete an activity 7 Patient refused to complete or attempt activity 9 The patient did not perform the activity before the current illness or injury 88 Not attempted due to Medical conditions or safety concerns Other Treatment Pt propelled w/c to gym, where she did 12 minutes bilat UE exercise on arm bike set at 30W resistance (increased resistance so decreased time). Also did graded clothespins with 1# weight on each arm, to strengthen UEs and increase activity tolerance, as needed for standing during ADLs. Pt propelled herself to commons area after treatment, for PT. All needs met. Education OT Patient Education: Progress toward Goal/Update tx plan, Purpose of tx/ functional activities Teaching Recipient: Patient Teaching Methods: Discussion Response to Teaching: Verbalize Understanding OT Short Term Goals Short Term Goals Time Frame: Aug 30, 2017 Bathing(FIM): 5 Lower Body Dressing(FIM): 5 Toileting(FIM): 5 Toilet/Commode Transfer(FIM): 5 Additional Short Term Goals: 1-Demonstrate ADL Tasks, 2-Verbalize Understanding , 3-ImproveStrength/Mahad 1=Demonstrate adherence to instructed precautions during ADL tasks. 2=Patient will verbalize/demonstrate understanding of assistive devices/ modifications for ADL. 3=Patient will improve strength/tolerance for activity to enable patient to perform ADL's. OT Securities Clerk Goals Shelter Goals Time Frame: Sep 08, 2017 Eating (FIM): 7 Eating (QC): 6 Groomin Oral Hygiene (QC): 6 Bathing(FIM): 6 Shower/Bathe Self (QC): 6 Upper Body Dressing(FIM): 6 Upper Body Dressing (QC): 6 Lower Body Dressing(FIM): 6 Lower Body Dressing (QC): 6 On/Off Footwear (QC): 6 Toileting(FIM): 6 Toileting Hygiene (QC): 6 Toilet/Commode Transfer(FIM): 6 Toilet/Commode Transfer (QC): 6 Shower Transfer(FIM): 5 Additional Goals: 1-Demonstrate ADL Tasks, 2-Verbalize Understanding, 3- ImproveStrength/Mahad 1=Demonstrate adherence to instructed precautions during ADL tasks. 2=Patient will verbalize/demonstrate understanding of assistive devices/ modifications for ADL. 3=Patient will improve strength/tolerance for activity to enable patient to perform ADL's. OT Education/Plan Problem List/Assessment Pt would benefit from skilled OT to increase her independence in basic self care to allow her to safely return home with family after long hospitalization Discharge Recommendations Plan/Recommendations: Continue POC Treatment Plan/Plan of Care Patient would benefit from OT for education, treatment and training to promote independence in ADL's, mobility, safety and/or upper extremity function for ADL' s. Plan of Care: ADL Retraining, Functional Mobility, Group Exercise/Act as Ind ( education, exercise, activity tolerance, socialization, funct mobility), UE Funct Exercise/Act, UE Neuromus Re-Ed/Coord Treatment Duration: Sep 08, 2017 Frequency: At least 5 of 7 days/Wk (IRF) Estimated Hrs Per Day: 1.5 hours per day Agreement: Yes Rehab Potential: Good Time/GCodes Start Time: 13:30 Stop Time: 14:00 Total Time Billed (hr/min): 30 Billed Treatment Time visit, 30 minutes exercise POLLY HELTON OT Aug 30, 2017 15:08
[2017-08-30 18:00] VITALS: BP 125/78
[2017-08-30] MEDS: SIMvastatin 20 MG (ZOCOR) TAB PO SCH (21:12)
[2017-08-30 21:17] VITALS: BP 125/82
[2017-08-31 05:38] VITALS: BP 110/75
[2017-08-31] MEDS: inSUlin ASPART (NovoLOG) 1 UNIT/0.01 ML (CHARGE PER UNIT) SC SCH ×4 (06:27→21:51)
[2017-08-31] MEDS: CALCIUM ACETATE 667 MG CAP (PHOSLO) PO SCH ×3 (06:32→17:48)
[2017-08-31 06:44] LABS: CALCIUM 8.1 MG/DL (8.5-10.1); CREATININE SERUM 2.35 MG/DL (0.60-1.30); POTASSIUM 4.6 MMOL/L (3.6-5.0)
--- NOTE | 2017-08-31 08:19 | Progress Note (SOAP) ---
Subjective Time Seen by Provider: 08:15 Subjective/Events-last exam Patient feels 40 percent improvement with her mobility. Patient did not gain any weight today and in fact lost a little. Diabetes. Renal insufficiency. Amputation Objective Exam Vital Signs Date Time Temp Pulse Resp B/P (MAP) Pulse Ox O2 Delivery O2 Flow Rate FiO2 08/31/17 05:38 97.9 74 19 110/75 (87) 96 Room Air 08/30/17 21:22 Room Air 08/30/17 21:17 91 125/82 (96) 08/30/17 18:00 97.7 86 20 125/78 (94) 96 Room Air 08/30/17 09:00 Room Air I & O 08/31/17 07:00 Intake Total 1780 ml Output Total 2300 ml Balance -520 ml Capillary Refill : General Appearance: No Apparent Distress, WD/WN HEENT: Normal ENT Inspection Neck: Full Range of Motion Respiratory: No Accessory Muscle Use, No Respiratory Distress Cardiovascular: Regular Rate, Rhythm, No Murmur Results Lab Laboratory Tests 08/30/17 11:03: Glucometer 135H 08/30/17 15:49: Glucometer 145H 08/30/17 20:31: Glucometer 148H 08/31/17 05:06: Sodium Level 137, Potassium Level 4.6, Chloride Level 111H, Carbon Dioxide Level 18L, Anion Gap 8, Blood Urea Nitrogen 43H, Creatinine 2.35H, Estimat Glomerular Filtration Rate 21, BUN/Creatinine Ratio 18, Glucose Level 136H, Calcium Level 8.1L 08/31/17 05:13: Glucometer 163H Microbiology 08/24/17 Urine Culture - Final, Complete See Comments Sent To [facility] Assessment/Plan Assessment/Plan Assess & Plan/Chief Complaint Debility. Acute on chronic renal failure. Atrial fibrillation. Diabetes. BKA left. Sleep apnea obstructive. . 08/25/17. Debility. Acute on chronic renal failure. Atrial fibrillation. Diabetes. BKA. Obstructive sleep apnea. Patient feels of foot is slightly swollen Patient working hard yesterday. . 08/28/17. Debility. Acute and chronic renal failure. Atrial fibrillation. Diabetes Patient gained 5 pounds.. . 08/31/17 debility. Chronic renal failure. Atrial fibrillation. Diabetes Patient lost a little weight Clinical Quality Measures DVT/VTE Risk/Contraindication: Risk Factor Score Per Nursin RFS Level Per Nursing on Admit: 4+=Very High URSULA RENEE DO Aug 31, 2017 08:19
--- NOTE | 2017-08-31 08:29 | PM & R (SOAP) Progress Note ---
Subjective This was a face to face visit with the patient. Date Seen by Provider: Aug 31, 2017 Time Seen by Provider: 07:45 Subjective/Events-last exam Patient was seen in her room this Am.Patient SBA for transfers.Patient to see one of her Physicians today at outside clinic Objective Physician Exam Last Set of Vital Signs Vital Signs Date Time Temp Pulse Resp B/P (MAP) Pulse Ox O2 Delivery O2 Flow Rate FiO2 08/31/17 05:38 97.9 74 19 110/75 (87) 96 Room Air Capillary Refill : I&O Intake and Output 08/31/17 00:00 Intake Total 1710 ml Output Total 3650 ml Balance -1940 ml Intake Oral 1710 ml Output Urine Total 3650 ml General: Alert, Oriented X3, Cooperative, No Acute Distress HEENT: Atraumatic, PERRLA, EOMI, Mucous Memb Moist/[place] Neck: Supple, No JVD Lungs: Clear to Auscultation Heart: Regular Rate Abdomen: Normal Bowel Sounds, Soft, No Tenderness Extremities: Other (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 Mild rt cellulitis of the leg) Neuro: Other (generalized weakness) Results Lab Data Laboratory Tests 08/28/17 10:54: Glucometer 165H 08/28/17 15:55: Glucometer 162H 08/28/17 20:30: Glucometer 207H 08/29/17 05:31: Glucometer 138H 08/29/17 05:54: Sodium Level 135, Potassium Level 4.9, Chloride Level 108H, Carbon Dioxide Level 21, Anion Gap 6, Blood Urea Nitrogen 42H, Creatinine 2.31H, Estimat Glomerular Filtration Rate 22, BUN/Creatinine Ratio 18, Glucose Level 119H, Calcium Level 8.2L 08/29/17 11:00: Glucometer 160H 08/29/17 16:05: Glucometer 181H 08/29/17 21:16: Glucometer 175H 08/30/17 05:49: Glucometer 120H 08/30/17 11:03: Glucometer 135H 08/30/17 15:49: Glucometer 145H 08/30/17 20:31: Glucometer 148H 08/31/17 05:06: Sodium Level 137, Potassium Level 4.6, Chloride Level 111H, Carbon Dioxide Level 18L, Anion Gap 8, Blood Urea Nitrogen 43H, Creatinine 2.35H, Estimat Glomerular Filtration Rate 21, BUN/Creatinine Ratio 18, Glucose Level 136H, Calcium Level 8.1L 08/31/17 05:13: Glucometer 163H Microbiology 08/24/17 Urine Culture - Final, Complete See Comments Sent To [facility] Assessment/Plan Assessment and Plan general debil secondary to acute on chronic Kidney D Labs show stable at this time Fluid overload treted with fluid restriction Flex contractures left BKA ssstretch Type 2 DM E Coli UTI treated Cellulitis rt leg ccccccccchronic YUDY HTN controlled A FIB controlled Acute on chronic diastolic CHF compensated Tobaccoism abstaining Plan Continue PT/OT Pass to see one of her specialists today Team Conference held yesterday-See report for full functional update and POC and ELOS (1) Renal failure (ARF), acute on chronic Status: Acute Co-Morbidities that are continuing to impact the rehab process: (include details ) IRMA ESPINOZA MD Aug 31, 2017 08:29
[2017-08-31] MEDS: APIXABAN 5 MG (ELIQUIS) TABLET PO SCH ×2 (09:17→21:16)
[2017-08-31] MEDS: CARVEDILOL 3.125 MG (COREG) TABLET PO SCH ×2 (09:17→21:16)
[2017-08-31] MEDS: GABAPENTIN 400 MG (NEURONTIN) CAP PO SCH (09:18)
[2017-08-31] MEDS: AMIODARONE 200 MG (CORDARONE) TAB PO SCH (09:18)
[2017-08-31] MEDS: inSUlin DETERMIR 1 UNIT/0.01 ML (LEVEMIR) CHARGE PER UNIT SQ SCH ×2 (09:18→21:52)
[2017-08-31] MEDS: CLOPIDOGREL 75 MG (PLAVIX) TABLET PO SCH (09:21)
[2017-08-31] MEDS: DULoxetine 30 MG (CYMBALTA) CAP PO SCH (09:21)
[2017-08-31] MEDS: GENTAMICIN 0.1% CREAM TP SCH ×3 (09:23→21:17)
[2017-08-31] MEDS: NYSTATIN CREAM (MYCOSTATIN) 30 GM TUBE TP SCH ×2 (09:23→21:16)
--- NOTE | 2017-08-31 10:34 | Physical Therapy Daily Note ---
PT Daily Note-Current Subjective Pt sitting in [facility] in room upon arrival. Pt agrees to PT. Pain Numeric Pain Scale: 4 Location: Left Location Body Site: Knee Pain Description: Ache Mental Status Patient Orientation: Person, Place, Time, Situation Transfers Functional [place] Measure 0=Not Assessed/NA 4=Minimal Assistance 1=Total Assistance 5=Supervision or Setup 2=Maximal Assistance 6=Modified [place] 3=Moderate Assistance 7=Complete IndependenceIRFPAI Quality Coding Scale 6 Independent with activity with or without an assistive device 5 Patient requires set up or clean up by helper. Patient completes activity by themselves 4 Supervision or touching assist (CGA). [place] provide cues , steadying assist 3 The helper provides less than half the effort to complete the activity 2 The helper provides more than half the effort to complete the activity 1 Dependent. The helper does all the effort to complete an activity 7 Patient refused to complete or attempt activity 9 The patient did not perform the activity before the current illness or injury 88 Not attempted due to Medical conditions or safety concerns Scootin Sit to/from Stand: 5 Sit to Stand (QC): 5 Weight Bearing Right Lower Extremity: Right Weight Bearing/Tolerated Left Lower Extremity: Left Weight Bearing/Tolerated Wheelchair Training Does the Pt Use a Wheelchair?: Yes Wheelchair Distance: 3=150 ft Distance: 250' Wheelchair Level of Assist: 5 Wheel 50 ft with 2 turns (QC): 5 Type of Wheelchair: Motorized Pt to prepare for Dr visit, using motorized [facility]. Exercises Seated Therapy Exercises: Ankle pumps, Long arc quads, Hip flexion, Kicking activity Seated Reps: 10 Treatments Pt completes Seated Ex in [facility]. Pt receives morning meds from Nurse. ASSOCIATION EXECUTIVE, pt & Retail Buyer discuss use of insurance benefit for OP PT b/c no benefit for HH Therapy. Pt is concerned with support at home. Pt transfers to Motorized [facility] for Dr Appt at end of tx. Pt practices with maneuvering [facility] before leaving with Retail Buyer for Dr Appt. Pt has all needs met at end of tx. Retail Buyer arrives to take pt to appt. Assessment Current Status: Good Progress Pt was anxious about discharge at start of tx. After speaking with Retail Buyer & ASSOCIATION EXECUTIVE, pt will better about having Family Mtg to discuss progress and discharge plans. PT Short Term Goals Short Term Goals Time Frame: Aug 30, 2017 Gait (FIM): 2 Gait Distance Comment: 50' Gait Level of Assist: 4 Gait Assistive Device: FWW Wheelchair Distance: 150' PT Fast Food Cashier Goals Fast Food Cashier Goals PT Fast Food Cashier Goals Time Frame: Sep 13, 2017 Transfers (B,C,W/C) (FIM): 6 Sit to Lying (QC): 6 Lying-Sitting on Side/Bed(QC): 6 Sit to Stand (QC): 6 Rollin Roll Left to Right (QC): 6 Chair/Hdh-hm-Utuxn Xfer(QC): 6 Car Transfer (QC): 6 Gait (FIM): 2 Distance: 100' Walk 10 feet (QC): 4 Walk 10ft-Uneven Surface(QC): 4 Walk 50ft with 2 Turns (QC): 4 Gait Level of Assist: 5 Gait Assistive Device: FWW Wheelchair (FIM): 6 Stairs (FIM): 1 # of Steps: 1 1 Step (curb) (QC): 4 Stairs Level Of Assist: 4 PT Plan Problem List Problem List: Activity Tolerance, Gait Treatment/Plan Treatment Plan: Continue Plan of Care Treatment Plan: Bed Mobility, Education, Functional Activity Mahad, Functional Strength, Group Therapy, Gait, Safety, Therapeutic Exercise, Transfers Treatment Duration: Sep 13, 2017 Frequency: At least 5 of 7 days/Wk (IRF) Estimated Hrs Per Day: 1.5 hours per day Patient and/or Family Agrees t: Yes Safety Risks/Education Patient Education: Gait Training, Transfer Techniques, Correct Positioning, Safety Issues Teaching Recipient: Patient Teaching Methods: Discussion Response to Teaching: Verbalize Understanding Time/GCodes Time In: 900 Time Out: 1000 Total Billed Treatment Time: 60 Total Billed Treatment 1, FA x2 (30m), EX (15m) & WCH (15m) G Codes Necessary: ALETHEA Hudson ASSOCIATION EXECUTIVE Aug 31, 2017 10:34
--- NOTE | 2017-08-31 14:30 | Occupational Ther Daily Note ---
OT Current Status-Daily Note Subjective No pain reported. Pt. agreed to shower. Appearance Pt. agreed to shower. Pt. has appointment today, and wants to be ready before her appointment. Mental Status/Objective Patient Orientation: Person, Place, Time, Situation Functional [place] Measure 0=Not Assessed/NA 4=Minimal Assistance 1=Total Assistance 5=Supervision or Setup 2=Maximal Assistance 6=Modified [place] 3=Moderate Assistance 7=Complete [place] ADL-Treatment Functional [place] Measure 0=Not Assessed/NA 4=Minimal Assistance 1=Total Assistance 5=Supervision or Setup 2=Maximal Assistance 6=Modified [place] 3=Moderate Assistance 7=Complete IndependenceIRFPAI Quality Coding Scale 6 Independent with activity with or without an assistive device 5 Patient requires set up or clean up by helper. Patient completes activity by themselves 4 Supervision or touching assist (CGA). [place] provide cues , steadying assist 3 The helper provides less than half the effort to complete the activity 2 The helper provides more than half the effort to complete the activity 1 Dependent. The helper does all the effort to complete an activity 7 Patient refused to complete or attempt activity 9 The patient did not perform the activity before the current illness or injury 88 Not attempted due to Medical conditions or safety concerns Grooming (FIM): 6 Oral Hygiene (QC): 6 (from wheelchair level) Bathing (FIM): 6 (Mod I in shower.) Shower/Bathe Self (QC): 6 Upper Body (FIM): 5 (set up) Upper Body Dressing (QC): 5 Lower Body Dressing (FIM): 4 (min assist to don shoe.) Lower Body Dressing (QC): 4 On/Off Footwear (QC): 4 Toileting (FIM): 6 Toileting Hygiene (QC): 6 Transfers (B, C, W/C) (FIM): 6 Toilet/Commode Transfer (FIM): 6 Toilet Transfer (QC): 6 Shower Transfer(FIM): 5 Other Treatment Pt. is able to bathe self with Mod I. Pt. is able to complete UE dressing with set up, and LE dressing with min assist only to don right shoe. pt. is able to don left prosthetic LE, and pants with SBA. After ADLs, pt. completes grooming tasks with Mod I at wheelchair level. All needs met in room. Education OT Patient Education: Correct positioning, Exercise program, Modified ADL techniques, Progress toward Goal/Update tx plan, Purpose of tx/functional activities, Reviewed precautions, Rehab process, Transfer techniques, Use of adapted equipment Teaching Recipient: Patient Teaching Methods: Demonstration, Discussion Response to Teaching: Verbalize Understanding, Return Demonstration OT Short Term Goals Short Term Goals Time Frame: Aug 30, 2017 Bathing(FIM): 5 Lower Body Dressing(FIM): 5 Toileting(FIM): 5 Toilet/Commode Transfer(FIM): 5 Additional Short Term Goals: 1-Demonstrate ADL Tasks, 2-Verbalize Understanding , 3-ImproveStrength/Mahad 1=Demonstrate adherence to instructed precautions during ADL tasks. 2=Patient will verbalize/demonstrate understanding of assistive devices/ modifications for ADL. 3=Patient will improve strength/tolerance for activity to enable patient to perform ADL's. OT Usp Goals Usp Goals Time Frame: Sep 08, 2017 Eating (FIM): 7 Eating (QC): 6 Groomin Oral Hygiene (QC): 6 Bathing(FIM): 6 Shower/Bathe Self (QC): 6 Upper Body Dressing(FIM): 6 Upper Body Dressing (QC): 6 Lower Body Dressing(FIM): 6 Lower Body Dressing (QC): 6 On/Off Footwear (QC): 6 Toileting(FIM): 6 Toileting Hygiene (QC): 6 Toilet/Commode Transfer(FIM): 6 Toilet/Commode Transfer (QC): 6 Shower Transfer(FIM): 5 Additional Goals: 1-Demonstrate ADL Tasks, 2-Verbalize Understanding, 3- ImproveStrength/Mahad 1=Demonstrate adherence to instructed precautions during ADL tasks. 2=Patient will verbalize/demonstrate understanding of assistive devices/ modifications for ADL. 3=Patient will improve strength/tolerance for activity to enable patient to perform ADL's. OT Education/Plan Problem List/Assessment Assessment: Decreased Activ Tolerance, Impaired Funct Balance, Impaired I ADL's Pt would benefit from skilled OT to increase her independence in basic self care to allow her to safely return home with family after long hospitalization Discharge Recommendations Plan/Recommendations: Continue POC Therapy D/C Recommendations: Home w/ Family Support, Occupational Therapy Home Care Equpiment Recommendations-D/C: Hip Kit Treatment Plan/Plan of Care Treatment,Training & Education: Yes Patient would benefit from OT for education, treatment and training to promote independence in ADL's, mobility, safety and/or upper extremity function for ADL' s. Plan of Care: ADL Retraining, Functional Mobility, Group Exercise/Act as Ind ( education, exercise, activity tolerance, socialization, funct mobility), UE Funct Exercise/Act, UE Neuromus Re-Ed/Coord Treatment Duration: Sep 08, 2017 Frequency: At least 5 of 7 days/Wk (IRF) Estimated Hrs Per Day: 1.5 hours per day Agreement: Yes Rehab Potential: Good Time/GCodes Start Time: 08:15 Stop Time: 09:00 Total Time Billed (hr/min): 45 Billed Treatment Time 1, ADL x 45minutes ALEXIS PAVON OT Aug 31, 2017 14:30
--- NOTE | 2017-08-31 14:58 | Occupational Ther Daily Note ---
OT Current Status-Daily Note Subjective Pt alert, sitting in w/c. Pt agrees to therapy. No c/o pain, only fatigue. Mental Status/Objective Patient Orientation: Person, Place, Time, Situation Functional [place] Measure 0=Not Assessed/NA 4=Minimal Assistance 1=Total Assistance 5=Supervision or Setup 2=Maximal Assistance 6=Modified [place] 3=Moderate Assistance 7=Complete [place] ADL-Treatment Functional [place] Measure 0=Not Assessed/NA 4=Minimal Assistance 1=Total Assistance 5=Supervision or Setup 2=Maximal Assistance 6=Modified [place] 3=Moderate Assistance 7=Complete IndependenceIRFPAI Quality Coding Scale 6 Independent with activity with or without an assistive device 5 Patient requires set up or clean up by helper. Patient completes activity by themselves 4 Supervision or touching assist (CGA). [place] provide cues , steadying assist 3 The helper provides less than half the effort to complete the activity 2 The helper provides more than half the effort to complete the activity 1 Dependent. The helper does all the effort to complete an activity 7 Patient refused to complete or attempt activity 9 The patient did not perform the activity before the current illness or injury 88 Not attempted due to Medical conditions or safety concerns Other Treatment Pt able to maneuvered w/c throughout ARU without difficulty. UE and fine motor exercises completed to increase strength and activity tolerance for daily functional tasks. Arm bike 15 min at 20 [place] resistance and resistive pegs ( 100 pegs) were completed. After therapy, pt maneuvered w/c around ARU and to room. Call light/phone in reach. All needs met in room. OT Short Term Goals Short Term Goals Time Frame: Aug 30, 2017 Bathing(FIM): 5 Lower Body Dressing(FIM): 5 Toileting(FIM): 5 Toilet/Commode Transfer(FIM): 5 Additional Short Term Goals: 1-Demonstrate ADL Tasks, 2-Verbalize Understanding , 3-ImproveStrength/Mahad 1=Demonstrate adherence to instructed precautions during ADL tasks. 2=Patient will verbalize/demonstrate understanding of assistive devices/ modifications for ADL. 3=Patient will improve strength/tolerance for activity to enable patient to perform ADL's. OT Skilled Nursing Goals Skilled Nursing Goals Time Frame: Sep 08, 2017 Eating (FIM): 7 Eating (QC): 6 Groomin Oral Hygiene (QC): 6 Bathing(FIM): 6 Shower/Bathe Self (QC): 6 Upper Body Dressing(FIM): 6 Upper Body Dressing (QC): 6 Lower Body Dressing(FIM): 6 Lower Body Dressing (QC): 6 On/Off Footwear (QC): 6 Toileting(FIM): 6 Toileting Hygiene (QC): 6 Toilet/Commode Transfer(FIM): 6 Toilet/Commode Transfer (QC): 6 Shower Transfer(FIM): 5 Additional Goals: 1-Demonstrate ADL Tasks, 2-Verbalize Understanding, 3- ImproveStrength/Mahad 1=Demonstrate adherence to instructed precautions during ADL tasks. 2=Patient will verbalize/demonstrate understanding of assistive devices/ modifications for ADL. 3=Patient will improve strength/tolerance for activity to enable patient to perform ADL's. OT Education/Plan Problem List/Assessment Pt would benefit from skilled OT to increase her independence in basic self care to allow her to safely return home with family after long hospitalization Discharge Recommendations Plan/Recommendations: Continue POC Treatment Plan/Plan of Care Patient would benefit from OT for education, treatment and training to promote independence in ADL's, mobility, safety and/or upper extremity function for ADL' s. Plan of Care: ADL Retraining, Functional Mobility, Group Exercise/Act as Ind ( education, exercise, activity tolerance, socialization, funct mobility), UE Funct Exercise/Act, UE Neuromus Re-Ed/Coord Treatment Duration: Sep 08, 2017 Frequency: At least 5 of 7 days/Wk (IRF) Estimated Hrs Per Day: 1.5 hours per day Agreement: Yes Rehab Potential: Good Time/GCodes Start Time: 13:30 Stop Time: 14:15 Total Time Billed (hr/min): 45 Billed Treatment Time 1 visit-FA 1 (20 min) EX 2 (25 min) ANA HWANG Aug 31, 2017 14:58
--- NOTE | 2017-08-31 15:48 | Physical Therapy Daily Note ---
PT Daily Note-Current Subjective Pt sitting in [facility] in [facility] upon arrival. Pt agrees to PT but reports needing to use restroom before starting tx. Pain Numeric Pain Scale: 5-Moderate Pain Location: Left Location Body Site: Knee Pain Description: Ache Mental Status Patient Orientation: Person, Place, Time, Situation Transfers Functional [place] Measure 0=Not Assessed/NA 4=Minimal Assistance 1=Total Assistance 5=Supervision or Setup 2=Maximal Assistance 6=Modified [place] 3=Moderate Assistance 7=Complete IndependenceIRFPAI Quality Coding Scale 6 Independent with activity with or without an assistive device 5 Patient requires set up or clean up by helper. Patient completes activity by themselves 4 Supervision or touching assist (CGA). [place] provide cues , steadying assist 3 The helper provides less than half the effort to complete the activity 2 The helper provides more than half the effort to complete the activity 1 Dependent. The helper does all the effort to complete an activity 7 Patient refused to complete or attempt activity 9 The patient did not perform the activity before the current illness or injury 88 Not attempted due to Medical conditions or safety concerns Scootin Sit to/from Stand: 5 Sit to Stand (QC): 5 Weight Bearing Right Lower Extremity: Right Weight Bearing/Tolerated Left Lower Extremity: Left Weight Bearing/Tolerated Wheelchair Training Does the Pt Use a Wheelchair?: Yes Wheelchair Distance: 3=150 ft Distance: 150' Wheelchair Level of Assist: 6 Wheel 50 ft with 2 turns (QC): 6 Wheel 150 ft (QC): 6 Type of Wheelchair: Manual Exercises Seated Therapy Exercises: Ankle pumps, Long arc quads, Hip flexion, Kicking activity Seated Reps: 15 Treatments Pt propels [facility] to room then uses restroom. Pt transfers back to [facility] and is able to remove prosthetic for stretching L hamstring into extension position. Pt able to complete Seated Ex in [facility]. Pt resting in [facility] at end of tx with all needs met, call light next to pt. Assessment Current Status: Good Progress Pt is getting stronger and more independent with all tasks but still fatiguing due to increased fluid retention. Pt will be receiving Lactics to help push fluid out, for better endurance and less SOA. PT Short Term Goals Short Term Goals Time Frame: Aug 30, 2017 Gait (FIM): 2 Gait Distance Comment: 50' Gait Level of Assist: 4 Gait Assistive Device: FWW Wheelchair Distance: 250' PT Extension Course Counselor Goals Long-Term Goals PT Long-Term Goals Time Frame: Sep 13, 2017 Transfers (B,C,W/C) (FIM): 6 Sit to Lying (QC): 6 Lying-Sitting on Side/Bed(QC): 6 Sit to Stand (QC): 6 Rollin Roll Left to Right (QC): 6 Chair/Uye-hu-Abmbd Xfer(QC): 6 Car Transfer (QC): 6 Gait (FIM): 2 Distance: 100' Walk 10 feet (QC): 4 Walk 10ft-Uneven Surface(QC): 4 Walk 50ft with 2 Turns (QC): 4 Gait Level of Assist: 5 Gait Assistive Device: FWW Wheelchair (FIM): 6 Stairs (FIM): 1 # of Steps: 1 1 Step (curb) (QC): 4 Stairs Level Of Assist: 4 PT Plan Problem List Problem List: Activity Tolerance Treatment/Plan Treatment Plan: Continue Plan of Care Treatment Plan: Bed Mobility, Education, Functional Activity Mahad, Functional Strength, Group Therapy, Gait, Safety, Therapeutic Exercise, Transfers Treatment Duration: Sep 13, 2017 Frequency: At least 5 of 7 days/Wk (IRF) Estimated Hrs Per Day: 1.5 hours per day Patient and/or Family Agrees t: Yes Safety Risks/Education Patient Education: Gait Training, Correct Positioning, W/C Management, Safety Issues Teaching Recipient: Patient Teaching Methods: Discussion Response to Teaching: Verbalize Understanding Time/GCodes Time In: 1420 Time Out: 1450 Total Billed Treatment Time: 30 Total Billed Treatment 1, FA (15m) & EX (15m) G Codes Necessary: ALETHEA Hudson PTA Aug 31, 2017 15:48
[2017-08-31 16:45] VITALS: BP 104/71
[2017-08-31 21:12] VITALS: BP 112/78
[2017-08-31] MEDS: TORSEMIDE 20 MG (DEMADEX) TAB PO SCH (21:16)
[2017-08-31] MEDS: GABAPENTIN 300 MG (NEURONTIN) CAP PO SCH (21:16)
[2017-08-31] MEDS: SIMvastatin 20 MG (ZOCOR) TAB PO SCH (21:16)
[2017-08-31] MEDS: ALPRAZolam 0.5 MG (XANAX) TAB PO PRN (22:41)
[2017-09-01 05:03] VITALS: BP 105/69
[2017-09-01] MEDS: inSUlin ASPART (NovoLOG) 1 UNIT/0.01 ML (CHARGE PER UNIT) SC SCH ×4 (06:11→21:09)
[2017-09-01] MEDS: CALCIUM ACETATE 667 MG CAP (PHOSLO) PO SCH ×3 (06:17→17:03)
--- NOTE | 2017-09-01 08:00 | Progress Note (SOAP) ---
Subjective Time Seen by Provider: 08:00 Subjective/Events-last exam Patient was 7 pounds since yesterday. Patient seen renal specialist. Patient gained over 20 pounds. Patient put on Demadex twice a day Objective Exam Vital Signs Date Time Temp Pulse Resp B/P (MAP) Pulse Ox O2 Delivery O2 Flow Rate FiO2 09/01/17 05:03 98.0 88 18 105/69 (81) 95 Room Air 08/31/17 21:31 Room Air 08/31/17 21:12 86 112/78 (89) 08/31/17 16:45 97.0 78 14 104/71 (82) 95 Room Air 08/31/17 09:00 Room Air I & O 09/01/17 07:00 Intake Total 1740 ml Output Total 2960 ml Balance -1220 ml Capillary Refill : General Appearance: No Apparent Distress, WD/WN HEENT: Normal ENT Inspection Neck: Full Range of Motion, Normal Inspection Respiratory: Lungs Clear, Normal Breath Sounds, No Accessory Muscle Use, No Respiratory Distress Cardiovascular: Regular Rate, Rhythm Gastrointestinal: non tender, soft Results Lab Laboratory Tests 08/31/17 11:37: Glucometer 139H 08/31/17 16:28: Glucometer 147H 08/31/17 21:50: Glucometer 190H 09/01/17 05:30: Glucometer 93 Microbiology 08/24/17 Urine Culture - Final, Complete See Comments Sent To [facility] Assessment/Plan Assessment/Plan Assess & Plan/Chief Complaint Debility. Acute on chronic renal failure. Atrial fibrillation. Diabetes. BKA left. Sleep apnea obstructive. . 08/25/17. Debility. Acute on chronic renal failure. Atrial fibrillation. Diabetes. BKA. Obstructive sleep apnea. Patient feels of foot is slightly swollen Patient working hard yesterday. . 08/28/17. Debility. Acute and chronic renal failure. Atrial fibrillation. Diabetes Patient gained 5 pounds.. . 08/31/17 debility. Chronic renal failure. Atrial fibrillation. Diabetes Patient lost a little weight. . 09/01/17. Debility. Acute and chronic renal failure. Atrial fibrillation. Diabetes. Patient was 7 pounds. Patient put on Demadex by renal specialist Clinical Quality Measures DVT/VTE Risk/Contraindication: Risk Factor Score Per Nursin RFS Level Per Nursing on Admit: 4+=Very High URSULA RENEE DO Sep 01, 2017 08:00
--- NOTE | 2017-09-01 08:14 | PM & R (SOAP) Progress Note ---
Subjective This was a face to face visit with the patient. Date Seen by Provider: Sep 01, 2017 Time Seen by Provider: 07:45 Subjective/Events-last exam Patient was seen in her room this AM Patient SBA for transfers Discussed case with RN yesterday re patients visit to outside Renal clinic where Physician there wanted adjustment in some meds So ordered Objective Physician Exam Last Set of Vital Signs Vital Signs Date Time Temp Pulse Resp B/P (MAP) Pulse Ox O2 Delivery O2 Flow Rate FiO2 09/01/17 05:03 98.0 88 18 105/69 (81) 95 Room Air Capillary Refill : I&O Intake and Output 09/01/17 00:00 Intake Total 1900 ml Output Total 2260 ml Balance -360 ml Intake Oral 1900 ml Output Urine Total 2260 ml # Bowel Movements 1 General: Alert, Oriented X3, Cooperative, No Acute Distress HEENT: Atraumatic, PERRLA, EOMI, Mucous Memb Moist/[place] Neck: Supple, No JVD Lungs: Clear to Auscultation Heart: Regular Rate Abdomen: Normal Bowel Sounds, Soft, No Tenderness Extremities: Other (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 Mild rt cellulitis of the leg) Neuro: Other (generalized weakness) Results Lab Data Laboratory Tests 08/29/17 11:00: Glucometer 160H 08/29/17 16:05: Glucometer 181H 08/29/17 21:16: Glucometer 175H 08/30/17 05:49: Glucometer 120H 08/30/17 11:03: Glucometer 135H 08/30/17 15:49: Glucometer 145H 08/30/17 20:31: Glucometer 148H 08/31/17 05:06: Sodium Level 137, Potassium Level 4.6, Chloride Level 111H, Carbon Dioxide Level 18L, Anion Gap 8, Blood Urea Nitrogen 43H, Creatinine 2.35H, Estimat Glomerular Filtration Rate 21, BUN/Creatinine Ratio 18, Glucose Level 136H, Calcium Level 8.1L 08/31/17 05:13: Glucometer 163H 08/31/17 11:37: Glucometer 139H 08/31/17 16:28: Glucometer 147H 08/31/17 21:50: Glucometer 190H 09/01/17 05:30: Glucometer 93 Microbiology 08/24/17 Urine Culture - Final, Complete See Comments Sent To [facility] Assessment/Plan Assessment and Plan General debil secondary to acute on chronic Kidney D stable Renal has seen yesterday Fliud overload treted Flex contractures left BKA Type 2 DM E coli UTI treated Cellulitis Rt leg Chronic YUDY HTN controlled A FIB controlled Acute on chronic diastolic CHF compensated Tobaccoism abstaining Plan Continue PT/OT Goal Return home with spouse Modified Independent to supervsion for adls and mobility skills (1) Renal failure (ARF), acute on chronic Status: Acute Co-Morbidities that are continuing to impact the rehab process: (include details ) IRMA ESPINOZA MD Sep 01, 2017 08:14
[2017-09-01 08:30] VITALS: BP 106/69
[2017-09-01] MEDS: DULoxetine 30 MG (CYMBALTA) CAP PO SCH (08:34)
[2017-09-01] MEDS: APIXABAN 5 MG (ELIQUIS) TABLET PO SCH ×2 (08:34→21:09)
[2017-09-01] MEDS: TORSEMIDE 20 MG (DEMADEX) TAB PO SCH ×2 (08:34→21:09)
[2017-09-01] MEDS: GABAPENTIN 300 MG (NEURONTIN) CAP PO SCH ×3 (08:34→21:09)
[2017-09-01] MEDS: AMIODARONE 200 MG (CORDARONE) TAB PO SCH (08:35)
[2017-09-01] MEDS: CLOPIDOGREL 75 MG (PLAVIX) TABLET PO SCH (08:35)
[2017-09-01] MEDS: CARVEDILOL 3.125 MG (COREG) TABLET PO SCH ×2 (08:35→21:09)
[2017-09-01] MEDS: inSUlin DETERMIR 1 UNIT/0.01 ML (LEVEMIR) CHARGE PER UNIT SQ SCH ×2 (08:37→21:10)
[2017-09-01] MEDS: NYSTATIN CREAM (MYCOSTATIN) 30 GM TUBE TP SCH ×2 (08:43→21:11)
[2017-09-01] MEDS: GENTAMICIN 0.1% CREAM TP SCH ×2 (08:43→13:23)
[2017-09-01 09:33] LABS: CALCIUM 8.2 MG/DL (8.5-10.1); CREATININE SERUM 2.39 MG/DL (0.60-1.30); POTASSIUM 4.4 MMOL/L (3.6-5.0)
--- NOTE | 2017-09-01 11:05 | Occupational Ther Daily Note ---
OT Current Status-Daily Note Subjective Pt alert, sitting on EOB. Pt agrees to therapy. No c/o pain at this time. Scrape on R foot while donning compression stockings, reported to nrsg, bandage placed on area. Mental Status/Objective Patient Orientation: Person, Place, Time, Situation Functional [place] Measure 0=Not Assessed/NA 4=Minimal Assistance 1=Total Assistance 5=Supervision or Setup 2=Maximal Assistance 6=Modified [place] 3=Moderate Assistance 7=Complete [place] ADL-Treatment Pt declined shower. After set up, pt able to don/doff upper body clothing sitting EOB. Donned/doffed lower body clothing by self, SBA in standing while pt hiked pants over hips. Assist to don R shoe. Functional [place] Measure 0=Not Assessed/NA 4=Minimal Assistance 1=Total Assistance 5=Supervision or Setup 2=Maximal Assistance 6=Modified [place] 3=Moderate Assistance 7=Complete IndependenceIRFPAI Quality Coding Scale 6 Independent with activity with or without an assistive device 5 Patient requires set up or clean up by helper. Patient completes activity by themselves 4 Supervision or touching assist (CGA). [place] provide cues , steadying assist 3 The helper provides less than half the effort to complete the activity 2 The helper provides more than half the effort to complete the activity 1 Dependent. The helper does all the effort to complete an activity 7 Patient refused to complete or attempt activity 9 The patient did not perform the activity before the current illness or injury 88 Not attempted due to Medical conditions or safety concerns Grooming (FIM): 6 (Sitting in w/c, pt able to complete by self.) Oral Hygiene (QC): 6 Upper Body (FIM): 5 Upper Body Dressing (QC): 4 Lower Body Dressing (FIM): 4 Lower Body Dressing (QC): 3 On/Off Footwear (QC): 3 Toileting (FIM): 5 (Manipulated clothing and cleansed after voiding with SBA using FWW and BSC.) Toileting Hygiene (QC): 4 Toilet/Commode Transfer (FIM): 5 (Close SBA using FWW, BSC and grabbar for transfer.) Toilet Transfer (QC): 4 Other Treatment To increase strength and activity tolerance for daily functional tasks, pt maneuvered w/c around ARU and first floor of hospital, minimal breaks. Arm bike completed 15 min at 20 patton resistance without breaks. After therapy, pt in w/c getting ready to complete grooming at sink. Call light/phone in reach. All needs met in room. OT Short Term Goals Short Term Goals Time Frame: Aug 30, 2017 Bathing(FIM): 5 Lower Body Dressing(FIM): 5 Toileting(FIM): 5 Toilet/Commode Transfer(FIM): 5 Additional Short Term Goals: 1-Demonstrate ADL Tasks, 2-Verbalize Understanding , 3-ImproveStrength/Mahad 1=Demonstrate adherence to instructed precautions during ADL tasks. 2=Patient will verbalize/demonstrate understanding of assistive devices/ modifications for ADL. 3=Patient will improve strength/tolerance for activity to enable patient to perform ADL's. OT Stretching Machine Operator Goals Stretching Machine Operator Goals Time Frame: Sep 08, 2017 Eating (FIM): 7 Eating (QC): 6 Groomin Oral Hygiene (QC): 6 Bathing(FIM): 6 Shower/Bathe Self (QC): 6 Upper Body Dressing(FIM): 6 Upper Body Dressing (QC): 6 Lower Body Dressing(FIM): 6 Lower Body Dressing (QC): 6 On/Off Footwear (QC): 6 Toileting(FIM): 6 Toileting Hygiene (QC): 6 Toilet/Commode Transfer(FIM): 6 Toilet/Commode Transfer (QC): 6 Shower Transfer(FIM): 5 Additional Goals: 1-Demonstrate ADL Tasks, 2-Verbalize Understanding, 3- ImproveStrength/Mahad 1=Demonstrate adherence to instructed precautions during ADL tasks. 2=Patient will verbalize/demonstrate understanding of assistive devices/ modifications for ADL. 3=Patient will improve strength/tolerance for activity to enable patient to perform ADL's. OT Education/Plan Problem List/Assessment Pt would benefit from skilled OT to increase her independence in basic self care to allow her to safely return home with family after long hospitalization Discharge Recommendations Plan/Recommendations: Continue POC Treatment Plan/Plan of Care Patient would benefit from OT for education, treatment and training to promote independence in ADL's, mobility, safety and/or upper extremity function for ADL' s. Plan of Care: ADL Retraining, Functional Mobility, Group Exercise/Act as Ind ( education, exercise, activity tolerance, socialization, funct mobility), UE Funct Exercise/Act, UE Neuromus Re-Ed/Coord Treatment Duration: Sep 08, 2017 Frequency: At least 5 of 7 days/Wk (IRF) Estimated Hrs Per Day: 1.5 hours per day Agreement: Yes Rehab Potential: Good Time/GCodes Start Time: 09:00 Stop Time: 10:30 Total Time Billed (hr/min): 90 Billed Treatment Time 1 visit-FA 5 (75 min) EX 1 (15 min) ANA HWANG Sep 01, 2017 11:05
--- NOTE | 2017-09-01 11:59 | Physical Therapy Daily Note ---
PT Daily Note-Current Subjective Patient in wheelchair at bedside pre tx, agrees to PT, no complaints of pain. Appearance Patient in wheelchair at bedside post tx, has greyson, nurse call. Mental Status Patient Orientation: Normal For Age Transfers Functional [place] Measure 0=Not Assessed/NA 4=Minimal Assistance 1=Total Assistance 5=Supervision or Setup 2=Maximal Assistance 6=Modified [place] 3=Moderate Assistance 7=Complete IndependenceIRFPAI Quality Coding Scale 6 Independent with activity with or without an assistive device 5 Patient requires set up or clean up by helper. Patient completes activity by themselves 4 Supervision or touching assist (CGA). [place] provide cues , steadying assist 3 The helper provides less than half the effort to complete the activity 2 The helper provides more than half the effort to complete the activity 1 Dependent. The helper does all the effort to complete an activity 7 Patient refused to complete or attempt activity 9 The patient did not perform the activity before the current illness or injury 88 Not attempted due to Medical conditions or safety concerns Transfers (B, C, W/C) (FIM): 5 Scootin Rollin Supine to/from Sit: 6 Sit to/from Stand: 5 Bed to/from Chair: 5 Occasional cues to use arm rests on chair when standing, patient has a tendency to use both hands on walker Weight Bearing Right Lower Extremity: Right Weight Bearing/Tolerated Left Lower Extremity: Left Weight Bearing/Tolerated Gait Training Gait (FIM): 2 Distance: 50'x2, 20' Gait Level of Assist: 5 Gait Persons Needed: 1 Gait Assistive Device: FWW Left prosthetic leg, SBA, poor heel strike on left, flexed knee on left. Exercises stretching, prone hip stretch for 5 min, left knee extension stretch for 5 min NuStep Minutes: 15 NuStep Workload: 5 Treatments bed mobility and transfers, ambulation,stretching/ROM, functional strengthening Assessment Current Status: Poor Progress Worse endurance and ambulation distance PT Short Term Goals Short Term Goals Time Frame: Aug 30, 2017 Gait (FIM): 2 Gait Distance Comment: 50' Gait Level of Assist: 4 Gait Assistive Device: FWW Wheelchair Distance: 150' PT Longterm Goals Longterm Goals PT Longterm Goals Time Frame: Sep 13, 2017 Transfers (B,C,W/C) (FIM): 6 Sit to Lying (QC): 6 Lying-Sitting on Side/Bed(QC): 6 Sit to Stand (QC): 6 Rollin Roll Left to Right (QC): 6 Chair/Mcz-zn-Vofmz Xfer(QC): 6 Car Transfer (QC): 6 Gait (FIM): 2 Distance: 100' Walk 10 feet (QC): 4 Walk 10ft-Uneven Surface(QC): 4 Walk 50ft with 2 Turns (QC): 4 Gait Level of Assist: 5 Gait Assistive Device: FWW Wheelchair (FIM): 6 Stairs (FIM): 1 # of Steps: 1 1 Step (curb) (QC): 4 Stairs Level Of Assist: 4 PT Plan Problem List Problem List: Activity Tolerance, Functional Strength, Safety, Balance, Gait, Transfer, Bed Mobility, ROM Treatment/Plan Treatment Plan: Continue Plan of Care Treatment Plan: Bed Mobility, Education, Functional Activity Mahad, Functional Strength, Group Therapy, Gait, Safety, Therapeutic Exercise, Transfers Treatment Duration: Sep 13, 2017 Frequency: At least 5 of 7 days/Wk (IRF) Estimated Hrs Per Day: 1.5 hours per day Patient and/or Family Agrees t: Yes Safety Risks/Education Patient Education: Gait Training, Transfer Techniques, Correct Positioning, Safety Issues Teaching Recipient: Patient Teaching Methods: Demonstration, Discussion Response to Teaching: Reinforcement Needed Time/GCodes Time In: 1100 Time Out: 1200 Total Billed Treatment Time: 60 Total Billed Treatment 1 visit EX 25' FA 15' GT 20' GEM DANIELSON PT Sep 01, 2017 11:59
--- NOTE | 2017-09-01 14:00 | Physical Therapy Daily Note ---
PT Daily Note-Current Subjective Patient in therapy gym in wheelchair pre tx, has her prosthetic leg on, no complaints of pain. Appearance Patient in wheelchair at bedside post tx, has nurse call. Mental Status Patient Orientation: Person, Place, Situation Transfers Functional [place] Measure 0=Not Assessed/NA 4=Minimal Assistance 1=Total Assistance 5=Supervision or Setup 2=Maximal Assistance 6=Modified [place] 3=Moderate Assistance 7=Complete IndependenceIRFPAI Quality Coding Scale 6 Independent with activity with or without an assistive device 5 Patient requires set up or clean up by helper. Patient completes activity by themselves 4 Supervision or touching assist (CGA). [place] provide cues , steadying assist 3 The helper provides less than half the effort to complete the activity 2 The helper provides more than half the effort to complete the activity 1 Dependent. The helper does all the effort to complete an activity 7 Patient refused to complete or attempt activity 9 The patient did not perform the activity before the current illness or injury 88 Not attempted due to Medical conditions or safety concerns Sit to/from Stand: 5 Weight Bearing Right Lower Extremity: Right Weight Bearing/Tolerated Left Lower Extremity: Left Weight Bearing/Tolerated Gait Training Gait (FIM): 2 Distance: 60', 50'x3 Gait Level of Assist: 5 Gait Persons Needed: 1 Gait Assistive Device: FWW Patient fatigues quickly and needs to sit and rest. Treatments ambulation Assessment Current Status: Fair Progress poor endurance but better than this morning PT Short Term Goals Short Term Goals Time Frame: Aug 30, 2017 Gait (FIM): 2 Gait Distance Comment: 50' Gait Level of Assist: 4 Gait Assistive Device: FWW Wheelchair Distance: 150' PT Senior Care Goals Senior Care Goals PT Medication Manager Goals Time Frame: Sep 13, 2017 Transfers (B,C,W/C) (FIM): 6 Sit to Lying (QC): 6 Lying-Sitting on Side/Bed(QC): 6 Sit to Stand (QC): 6 Rollin Roll Left to Right (QC): 6 Chair/Kfb-mx-Izmld Xfer(QC): 6 Car Transfer (QC): 6 Gait (FIM): 2 Distance: 100' Walk 10 feet (QC): 4 Walk 10ft-Uneven Surface(QC): 4 Walk 50ft with 2 Turns (QC): 4 Gait Level of Assist: 5 Gait Assistive Device: FWW Wheelchair (FIM): 6 Stairs (FIM): 1 # of Steps: 1 1 Step (curb) (QC): 4 Stairs Level Of Assist: 4 PT Plan Problem List Problem List: Activity Tolerance, Functional Strength, Safety, Balance, Gait, Transfer, Bed Mobility, ROM Treatment/Plan Treatment Plan: Continue Plan of Care Treatment Plan: Bed Mobility, Education, Functional Activity Mahad, Functional Strength, Group Therapy, Gait, Safety, Therapeutic Exercise, Transfers Treatment Duration: Sep 13, 2017 Frequency: At least 5 of 7 days/Wk (IRF) Estimated Hrs Per Day: 1.5 hours per day Patient and/or Family Agrees t: Yes Safety Risks/Education Patient Education: Gait Training, Transfer Techniques, Correct Positioning, Safety Issues Teaching Recipient: Patient Teaching Methods: Demonstration, Discussion Response to Teaching: Reinforcement Needed Time/GCodes Time In: 1330 Time Out: 1400 Total Billed Treatment Time: 30 Total Billed Treatment 1 visit GT 30' GEM DANIELSON PT Sep 01, 2017 14:00
--- NOTE | 2017-09-01 14:40 | Behavioral Health Consult ---
Consult- Consult Date Seen by Provider: Sep 01, 2017 Time Seen by Provider: 12:14 Patient: Melisa Merchant : 1960 Date: 09/01/2017 Referral: Dr. Mckenzie CPT Code: 53440 Psychodiagnostic Examination, 1 unit(s) Start Time: 1214 Stop Time: 1320 Chief Complaint: Depression Referral: Melisa Merchant is a 56 year old female referred by Dr. Mckenzie for a clinical diagnostic assessment. Information sources for this evaluation include self-report/observation and medical records. Presenting Problem: The presenting clinical problem is Depression. The primary clinical theme and problem discussed during the appointment was that Melisa reports a great deal of situational depression related to her health problems and more recently the amputation of her left leg. She has been on both Celexa and Cymbalta for some time, but feels they are no longer affective. She recalls them being more helpful when she started them, but has not had any dosage adjustments. Melisa was able to share that she does not have the motivation and energy needed to gain the most of her rehabilitation. She states that her is exhausted from picking up the slack over the past 18 months and has given her an ultimatum. He reportedly has told her that she needs to be able to walk on her own when she is dismissed or he is leaving the marriage. They have a 13-year-old daughter together and Melisa wants to be there for her and be more active. She admits that she has given up in the past and is ready to pick herself back up. Melisa does have multiple medical issues including diabetes and kidney disease. It is unknown by this provider if alternative anti-depressant medications would further compromise these medical issues. It is recommended that her current dosages of Celexa and Cymbalta be increased to be more affective. Melisa is open to this recommendation. She seemed to benefit a great deal from the brief psychotherapy intervention that was provided and she was strongly encouraged to seek outpatient counseling. This would allow her to develop realistic goals, improve self-esteem and develop coping skills after the loss of her leg. She reported that her is not agreeable to transport her to counseling appointments. He works nights and sleeps days and would not be acceptable to in-home counseling while he is resting. The secondary social studies teacher is working with Melisa to arrange transportation and this may allow her access to outpatient counseling. They are also working to arrange a family meeting to review realistic goals and expectations of recovery. Symptoms observed or reported requiring current level of care include depressed mood, familial stress/strain, fatigue/low energy, frequent tearfulness, medical problems, and worry. Observations/Mental Status: Melisa was assessed in her hospital room at [facility]. Overall appearance was appropriate and indicated adequate self-care. Melisa was seated and wearing her prosthetic leg. The patient was a good historian. Katherine general approach to the evaluation indicated interest. Orientation was intact for person, place, time, and situation. Melisa evidenced good understanding of the reason for the appointment. The predominant mood was that of depressed with affect appropriate to expressed concerns and presenting problem. Immediate attention and concentration was unremarkable clinically during the interview. Level of intellectual functioning compared to same age peers was average range. Thought processes were found to be generally logical, coherent and goal directed. Thought content appeared normal. Psychomotor functioning was within normal limits. Tone of voice was normal and controlled and manner of speech was normal. Expressive speech was marked by fluent speech and language. Current destructive behavior patterns: none reported or indicated. Disturbance in sleep patterns: not assessed. Eye contact was good. Insight was average. Melisa s style of interacting during the appointment was appropriate and motivated. Current/Previous Mental Health Treatment: Past psychiatric history: Melisa states that she did try outpatient counseling last January and did not feel she benefited from it. She has been receiving her psychotropic medication management from a primary care physician. History of self or other harm: denied. History of abuse: denied. Medical History: Reported medical conditions included insulin dependent diabetes mellitus type 2, hypertension, chronic atrial fibrillation, left below knee amputation and kidney problems. Current psychotropic medications: Celexa 20mg daily, Cymbalta 30mg daily and Xanax 0.5mg tid, prn. Recreational Drug Usage: Current use of alcohol or drugs: denied. Educational and Vocational Histories: Current level of formal education is an Associate's degree. History of learning problems: none indicated or reported. School-based remedial education services: were denied. In-school behavior problems: were denied. 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 She is currently on disability. Legal History: Legal history was reported to be denied. Family and Social Histories: Melisa currently lives with her and daughter. Melisa has been to her for 15 years. They moved to the [facility] from [place] 12 years ago. Melisa had pre-diabetic symptoms prior to her with her daughter and her complicated this further and she is now insulin dependent. She had her daughter when she was 43 years old. Melisa states that she did have periods when she did not take her medication because she did not have insurance or financial means to obtain it. She reports that she has been more compliant the past few years. She feels that the amputation of her left foot/lower leg was the result of poor management by her physician. Melisa states that she is motivated to get stronger and just needs the energy to push through. Summary of Assessment Information/Prognosis: Katherine presenting problem and symptoms appear consistent with a preliminary diagnosis of F33.1 Major Depressive Disorder, Recurrent, Moderate without Psychotic Features at this point. Current emotional symptoms are of moderate intensity. Diagnostic Impressions: ICD-10: F33.1 Major Depressive Disorder, Recurrent, Moderate without Psychotic Features Initial Treatment Plan/Recommendations: The recommendations at this time include the following: individual outpatient psychotherapy. Increase dosage of current prescriptions of Celexa and Cymbalta. Melisa verbalized understanding of these recommendations and an intention to comply. MADELIN CHRISTIAN Johan Sep 01, 2017 14:40
[2017-09-01 16:48] VITALS: BP 108/76
[2017-09-01] MEDS: ALPRAZolam 0.5 MG (XANAX) TAB PO PRN (21:08)
[2017-09-01] MEDS: SIMvastatin 20 MG (ZOCOR) TAB PO SCH (21:09)
[2017-09-02 05:21] VITALS: BP 105/73
[2017-09-02] MEDS: inSUlin ASPART (NovoLOG) 1 UNIT/0.01 ML (CHARGE PER UNIT) SC SCH ×4 (05:57→20:47)
[2017-09-02] MEDS ORDERED: A & D OINT 60 GM TUBE TOP SCH (06:00)
[2017-09-02] MEDS: CALCIUM ACETATE 667 MG CAP (PHOSLO) PO SCH ×3 (06:47→17:48)
--- NOTE | 2017-09-02 07:27 | PM & R (SOAP) Progress Note ---
Subjective This was a face to face visit with the patient. Date Seen by Provider: Sep 02, 2017 Time Seen by Provider: 07:05 Subjective/Events-last exam Patient was seen in her room this AM Appreciate DR Green assistance and orders re wound care.Patient SBA for transfers Objective Physician Exam Last Set of Vital Signs Vital Signs Date Time Temp Pulse Resp B/P (MAP) Pulse Ox O2 Delivery O2 Flow Rate FiO2 09/02/17 05:21 96.9 75 20 105/73 (84) 99 Room Air Capillary Refill : I&O Intake and Output 09/02/17 00:00 Intake Total 1490 ml Output Total 4550 ml Balance -3060 ml Intake Oral 1490 ml Output Urine Total 4550 ml # Bowel Movements 1 General: Alert, Oriented X3, Cooperative, No Acute Distress HEENT: Atraumatic, PERRLA, EOMI, Mucous Memb Moist/[place] Neck: Supple, No JVD Lungs: Clear to Auscultation Heart: Regular Rate Abdomen: Normal Bowel Sounds, Soft, No Tenderness Extremities: Other (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 Mild rt cellulitis of the leg) Neuro: Other (generalized weakness) Results Lab Data Laboratory Tests 08/30/17 11:03: Glucometer 135H 08/30/17 15:49: Glucometer 145H 08/30/17 20:31: Glucometer 148H 08/31/17 05:06: Sodium Level 137, Potassium Level 4.6, Chloride Level 111H, Carbon Dioxide Level 18L, Anion Gap 8, Blood Urea Nitrogen 43H, Creatinine 2.35H, Estimat Glomerular Filtration Rate 21, BUN/Creatinine Ratio 18, Glucose Level 136H, Calcium Level 8.1L 08/31/17 05:13: Glucometer 163H 08/31/17 11:37: Glucometer 139H 08/31/17 16:28: Glucometer 147H 08/31/17 21:50: Glucometer 190H 09/01/17 05:30: Glucometer 93 09/01/17 08:56: Sodium Level 137, Potassium Level 4.4, Chloride Level 109H, Carbon Dioxide Level 18L, Anion Gap 10, Blood Urea Nitrogen 45H, Creatinine 2.39H, Estimat Glomerular Filtration Rate 21, BUN/Creatinine Ratio 19, Glucose Level 125H, Calcium Level 8.2L 09/01/17 11:53: Glucometer 71 09/01/17 16:41: Glucometer 96 09/01/17 21:05: Glucometer 156H 09/02/17 05:56: Glucometer 121H Microbiology 08/24/17 Urine Culture - Final, Complete See Comments Sent To R[facility] Assessment/Plan Assessment and Plan General debil secondary to acute on chronic Kidney D Renal has seen and meds being adjusted and labs being monitores Fluid overload treated Flex contracture left BKA stretch Type 2 DM E coli UTI treated Residual limb Scabbing A&D ointment ordered YUDY HTN controlled A FIB controlled Acute on chronic diastolic CHF compensated Tobaccoism abstaining Plan Continue PT/OT/Skin care Trend labs and WT-has lost some excess WT Next Team Conference 09-06-17 F/U with DR tomas and renal service (1) Renal failure (ARF), acute on chronic Status: Acute Co-Morbidities that are continuing to impact the rehab process: (include details ) IRMA ESPINOZA MD Sep 02, 2017 07:27
[2017-09-02] MEDS: NYSTATIN CREAM (MYCOSTATIN) 30 GM TUBE TP SCH ×2 (08:37→20:48)
[2017-09-02 08:43] VITALS: BP 97/66
[2017-09-02] MEDS: AMIODARONE 200 MG (CORDARONE) TAB PO SCH (08:43)
[2017-09-02] MEDS: DULoxetine 30 MG (CYMBALTA) CAP PO SCH (08:43)
[2017-09-02] MEDS: GABAPENTIN 300 MG (NEURONTIN) CAP PO SCH ×3 (08:43→20:47)
[2017-09-02] MEDS: APIXABAN 5 MG (ELIQUIS) TABLET PO SCH ×2 (08:43→20:47)
[2017-09-02] MEDS: TORSEMIDE 20 MG (DEMADEX) TAB PO SCH ×2 (08:43→20:47)
[2017-09-02] MEDS: CLOPIDOGREL 75 MG (PLAVIX) TABLET PO SCH (08:43)
[2017-09-02] MEDS: CARVEDILOL 3.125 MG (COREG) TABLET PO SCH ×2 (08:44→20:46)
[2017-09-02] MEDS: inSUlin DETERMIR 1 UNIT/0.01 ML (LEVEMIR) CHARGE PER UNIT SQ SCH ×2 (08:44→20:47)
[2017-09-02] MEDS: A & D OINT 60 GM TUBE TOP SCH (08:50)
--- NOTE | 2017-09-02 09:52 | Physical Therapy Daily Note ---
PT Daily Note-Current Subjective Patient agrees to PT. Patient does toilet self on this date prior to PT. Pain Numeric Pain Scale: 0-No Pain Location: No Pain Reported Mental Status Patient Orientation: Normal For Age Transfers Functional Hardy Measure 0=Not Assessed/NA 4=Minimal Assistance 1=Total Assistance 5=Supervision or Setup 2=Maximal Assistance 6=Modified Hardy 3=Moderate Assistance 7=Complete IndependenceIRFPAI Quality Coding Scale 6 Independent with activity with or without an assistive device 5 Patient requires set up or clean up by helper. Patient completes activity by themselves 4 Supervision or touching assist (CGA). [place] provide cues , steadying assist 3 The helper provides less than half the effort to complete the activity 2 The helper provides more than half the effort to complete the activity 1 Dependent. The helper does all the effort to complete an activity 7 Patient refused to complete or attempt activity 9 The patient did not perform the activity before the current illness or injury 88 Not attempted due to Medical conditions or safety concerns Transfers (B, C, W/C) (FIM): 4 Scootin Sit to/from Stand: 4 Sit to Stand (QC): 4 CGA to SBA for safety with use of gait belt Weight Bearing Right Lower Extremity: Right Weight Bearing/Tolerated Left Lower Extremity: Left Weight Bearing/Tolerated Gait Training Does the Patient Walk?: Yes Gait (FIM): 2 Distance (FIM): 1=067-90 ft Distance: 65' x 6 Walk 10 feet (QC): 4 Walk 50 ft with 2 Turns(QC): 4 Gait Level of Assist: 4 Gait Assistive Device: FWW Patient does fatigue with distance. Patient requires CGA for safety. Assessment Patient remains up in w/c with needs met. Patient is progressing with treatment plan. PT Short Term Goals Short Term Goals Time Frame: Aug 30, 2017 Gait (FIM): 2 Gait Distance Comment: 50' Gait Level of Assist: 4 Gait Assistive Device: FWW Wheelchair Distance: 150' PT Detention Goals Detention Goals PT Detention Goals Time Frame: Sep 13, 2017 Transfers (B,C,W/C) (FIM): 6 Sit to Lying (QC): 6 Lying-Sitting on Side/Bed(QC): 6 Sit to Stand (QC): 6 Rollin Roll Left to Right (QC): 6 Chair/[id number]-[id number] Xfer(QC): 6 Car Transfer (QC): 6 Gait (FIM): 2 Distance: 100' Walk 10 feet (QC): 4 Walk 10ft-Uneven Surface(QC): 4 Walk 50ft with 2 Turns (QC): 4 Gait Level of Assist: 5 Gait Assistive Device: FWW Wheelchair (FIM): 6 Stairs (FIM): 1 # of Steps: 1 1 Step (curb) (QC): 4 Stairs Level Of Assist: 4 PT Plan Treatment/Plan Treatment Plan: Continue Plan of Care Treatment Plan: Bed Mobility, Education, Functional Activity Mahad, Functional Strength, Group Therapy, Gait, Safety, Therapeutic Exercise, Transfers Treatment Duration: Sep 13, 2017 Frequency: At least 5 of 7 days/Wk (IRF) Estimated Hrs Per Day: 1.5 hours per day Patient and/or Family Agrees t: Yes Time/GCodes Time In: 916 Time Out: 940 Total Billed Treatment Time: 24 Total Billed Treatment 1 visit GT x 2 24 min DEE FLORES PT Sep 02, 2017 09:52
--- NOTE | 2017-09-02 11:59 | Progress Note-Hospitalist ---
Subjective HPI/CC On Admission Date Seen by Provider: Sep 02, 2017 Time Seen by Provider: 11:00 Subjective/Events-last exam Patient doing well Fluid restriction but noncompliant with that Tobacco abstaining successful with patch Torsemide started yesterday Bowels are moving No pain is reported Review of Systems General: Fatigue Objective Exam Vital Signs Vital Signs Date Time Temp Pulse Resp B/P (MAP) Pulse Ox O2 Delivery O2 Flow Rate FiO2 09/02/17 09:04 Room Air 09/02/17 08:43 81 97/66 (76) 09/02/17 05:21 96.9 20 99 Capillary Refill : General Appearance: No Apparent Distress, WD/WN, Chronically ill, Obese Respiratory: Lungs Clear, Normal Breath Sounds Cardiovascular: No Edema, Irregularly Irregular Neurologic/Psychiatric: Alert, Oriented x3, No Motor/Sensory Deficits, Normal Mood/Affect Results/Procedures Lab Patient resulted labs reviewed. Assessment/Plan Assessment and Plan Assess & Plan/Chief Complaint Assessment: Debility Previous left BKA Atrial fibrillation chronic Volume overload Plan: Torsemide Fluid restriction Stress compliance with medical treatments Diagnosis/Problems Diagnosis/Problems (1) Atrial fibrillation Status: Chronic Qualifiers: Atrial fibrillation type: chronic Qualified Codes: I48.2 - Chronic atrial fibrillation (2) Hypertension Status: Chronic Qualifiers: Hypertension type: essential hypertension Qualified Codes: I10 - Essential (primary) hypertension (3) Obstructive sleep apnea Status: Chronic (4) Diabetes mellitus Status: Chronic Qualifiers: Diabetes mellitus type: type 2 Diabetes mellitus jail insulin 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 Diabetes mellitus complication status: with unspecified complications Qualified Codes: E11.8 - Type 2 diabetes mellitus with unspecified complications; Z79.4 - intermediate card tender (current) use of insulin (5) Renal failure (ARF), acute on chronic Status: Acute Qualifiers: Acute renal failure type: unspecified Chronic kidney disease stage: stage 4 (severe) Qualified Codes: N17.9 - Acute kidney failure, unspecified; N18.4 - Chronic kidney disease, stage 4 (severe) Clinical Quality Measures DVT/VTE Risk/Contraindication: Risk Factor Score Per Nursin RFS Level Per Nursing on Admit: 4+=Very High MARI GARRISON DO Sep 02, 2017 11:59
[2017-09-02 18:40] VITALS: BP 100/70
[2017-09-02] MEDS: SIMvastatin 20 MG (ZOCOR) TAB PO SCH (20:47)
[2017-09-02] MEDS: ALPRAZolam 0.5 MG (XANAX) TAB PO PRN (23:35)
[2017-09-03] MEDS: ACETAMINOPHEN 325 MG TABLET PO PRN (01:30)
[2017-09-03 05:01] VITALS: BP 109/75
[2017-09-03] MEDS: CALCIUM ACETATE 667 MG CAP (PHOSLO) PO SCH ×3 (06:22→16:45)
[2017-09-03] MEDS: inSUlin ASPART (NovoLOG) 1 UNIT/0.01 ML (CHARGE PER UNIT) SC SCH ×4 (06:23→21:00)
[2017-09-03] MEDS: A & D OINT 60 GM TUBE TOP SCH (06:23)
[2017-09-03] MEDS: DULoxetine 30 MG (CYMBALTA) CAP PO SCH (08:24)
[2017-09-03] MEDS: APIXABAN 5 MG (ELIQUIS) TABLET PO SCH ×2 (08:24→21:21)
[2017-09-03] MEDS: CLOPIDOGREL 75 MG (PLAVIX) TABLET PO SCH (08:24)
[2017-09-03] MEDS: TORSEMIDE 20 MG (DEMADEX) TAB PO SCH ×2 (08:24→21:21)
[2017-09-03] MEDS: AMIODARONE 200 MG (CORDARONE) TAB PO SCH (08:24)
[2017-09-03] MEDS: GABAPENTIN 300 MG (NEURONTIN) CAP PO SCH ×3 (08:24→21:21)
[2017-09-03] MEDS: CARVEDILOL 3.125 MG (COREG) TABLET PO SCH ×2 (08:25→21:21)
[2017-09-03] MEDS: inSUlin DETERMIR 1 UNIT/0.01 ML (LEVEMIR) CHARGE PER UNIT SQ SCH ×2 (08:25→21:23)
[2017-09-03 08:27] VITALS: BP 102/71
[2017-09-03] MEDS: NYSTATIN CREAM (MYCOSTATIN) 30 GM TUBE TP SCH ×2 (08:27→21:00)
[2017-09-03 18:20] VITALS: BP 128/84
[2017-09-03] MEDS: SIMvastatin 20 MG (ZOCOR) TAB PO SCH (21:21)
[2017-09-04] MEDS: ALPRAZolam 0.5 MG (XANAX) TAB PO PRN ×2 (00:17→21:50)
[2017-09-04 06:00] VITALS: BP 105/71
[2017-09-04] MEDS: inSUlin ASPART (NovoLOG) 1 UNIT/0.01 ML (CHARGE PER UNIT) SC SCH ×4 (06:00→20:30)
[2017-09-04] MEDS: CALCIUM ACETATE 667 MG CAP (PHOSLO) PO SCH ×3 (06:38→17:39)
--- NOTE | 2017-09-04 08:16 | Progress Note (SOAP) ---
Subjective Time Seen by Provider: 08:10 Subjective/Events-last exam Patient voices no complaint. Patient resting comfortably. Increased the dose of her antidepressants. Patient feels they're working her good this unit Objective Exam Vital Signs Date Time Temp Pulse Resp B/P (MAP) Pulse Ox O2 Delivery O2 Flow Rate FiO2 09/04/17 06:00 97.5 86 18 105/71 (82) 95 Room Air 09/03/17 21:00 Room Air 09/03/17 18:20 99.7 78 20 128/84 (99) 96 Room Air 09/03/17 09:23 Room Air 09/03/17 08:27 88 102/71 (81) I & O 09/04/17 06:59 Intake Total 1588 ml Output Total 5400 ml Balance -3812 ml Capillary Refill : General Appearance: No Apparent Distress, WD/WN HEENT: Normal ENT Inspection Neck: Full Range of Motion, Normal Inspection Respiratory: Lungs Clear, Normal Breath Sounds, No Accessory Muscle Use, No Respiratory Distress Cardiovascular: Regular Rate, Rhythm, No Murmur Results Lab Laboratory Tests 09/03/17 11:00: Glucometer 216H 09/03/17 16:37: Glucometer 148H 09/03/17 20:18: Glucometer 167H 09/04/17 05:43: Glucometer 140H Microbiology 08/24/17 Urine Culture - Final, Complete See Comments Sent To [facility] Assessment/Plan Assessment/Plan Assess & Plan/Chief Complaint Debility. Acute on chronic renal failure. Atrial fibrillation. Diabetes. BKA left. Sleep apnea obstructive. . 08/25/17. Debility. Acute on chronic renal failure. Atrial fibrillation. Diabetes. BKA. Obstructive sleep apnea. Patient feels of foot is slightly swollen Patient working hard yesterday. . 08/28/17. Debility. Acute and chronic renal failure. Atrial fibrillation. Diabetes Patient gained 5 pounds.. . 08/31/17 debility. Chronic renal failure. Atrial fibrillation. Diabetes Patient lost a little weight. . 09/01/17. Debility. Acute and chronic renal failure. Atrial fibrillation. Diabetes. Patient was 7 pounds. Patient put on Demadex by renal specialist. . 09/04/17. Debility. Chronic renal failure. Atrial fibrillation. Diabetes. Patient lost another 2 pounds Clinical Quality Measures DVT/VTE Risk/Contraindication: Risk Factor Score Per Nursin RFS Level Per Nursing on Admit: 4+=Very High URSULA RENEE DO Sep 04, 2017 08:16
[2017-09-04 08:40] VITALS: BP 111/78
[2017-09-04] MEDS: CLOPIDOGREL 75 MG (PLAVIX) TABLET PO SCH (08:43)
[2017-09-04] MEDS: TORSEMIDE 20 MG (DEMADEX) TAB PO SCH ×2 (08:43→20:28)
[2017-09-04] MEDS: CARVEDILOL 3.125 MG (COREG) TABLET PO SCH ×2 (08:43→21:16)
[2017-09-04] MEDS: APIXABAN 5 MG (ELIQUIS) TABLET PO SCH ×2 (08:44→20:28)
[2017-09-04] MEDS: AMIODARONE 200 MG (CORDARONE) TAB PO SCH (08:44)
[2017-09-04] MEDS: GABAPENTIN 300 MG (NEURONTIN) CAP PO SCH ×3 (08:44→20:29)
[2017-09-04] MEDS: inSUlin DETERMIR 1 UNIT/0.01 ML (LEVEMIR) CHARGE PER UNIT SQ SCH ×2 (08:45→20:30)
[2017-09-04] MEDS: NYSTATIN CREAM (MYCOSTATIN) 30 GM TUBE TP SCH ×2 (08:46→21:17)
[2017-09-04] MEDS: A & D OINT 60 GM TUBE TOP SCH (08:46)
--- NOTE | 2017-09-04 09:58 | Occupational Ther Daily Note ---
OT Current Status-Daily Note Subjective Pt sleeping in bed. Woke to name. Pt agrees to therapy. No c/o pain. Mental Status/Objective Patient Orientation: Person, Place, Time, Situation Functional Bent Measure 0=Not Assessed/NA 4=Minimal Assistance 1=Total Assistance 5=Supervision or Setup 2=Maximal Assistance 6=Modified Bent 3=Moderate Assistance 7=Complete Bent ADL-Treatment Supine to EOB by self. Transferred to w/c by self then maneuvered into bathroom. Transferred to toilet and completed toileting with mod I. Transferred to shower with mod I. Pt completed bathing by self. Set up for dressing. Pt completed lower body dressing using dressing stick then SBA in standing to hike pants over hips. Mod I for grooming. Pt dons/doffs prosthesis by self. Functional Bent Measure 0=Not Assessed/NA 4=Minimal Assistance 1=Total Assistance 5=Supervision or Setup 2=Maximal Assistance 6=Modified Bent 3=Moderate Assistance 7=Complete IndependenceIRFPAI Quality Coding Scale 6 Independent with activity with or without an assistive device 5 Patient requires set up or clean up by helper. Patient completes activity by themselves 4 Supervision or touching assist (CGA). [place] provide cues , steadying assist 3 The helper provides less than half the effort to complete the activity 2 The helper provides more than half the effort to complete the activity 1 Dependent. The helper does all the effort to complete an activity 7 Patient refused to complete or attempt activity 9 The patient did not perform the activity before the current illness or injury 88 Not attempted due to Medical conditions or safety concerns Grooming (FIM): 6 Oral Hygiene (QC): 6 Bathing (FIM): 6 Shower/Bathe Self (QC): 6 Upper Body (FIM): 5 Upper Body Dressing (QC): 5 Lower Body Dressing (FIM): 5 Lower Body Dressing (QC): 4 On/Off Footwear (QC): 6 Toileting (FIM): 6 Toileting Hygiene (QC): 6 Transfers (B, C, W/C) (FIM): 6 Toilet/Commode Transfer (FIM): 6 Toilet Transfer (QC): 6 Shower Transfer(FIM): 6 Other Treatment UE exercises completed to increase strength and activity tolerance for daily functional tasks. Arm bike 15 min duration at 25 patton resistance without breaks. Dowel sandra exercises with 1# wt attached. After therapy, pt and went outside, nrsg notified. All needs met. OT Short Term Goals Short Term Goals Time Frame: Aug 30, 2017 Bathing(FIM): 5 Lower Body Dressing(FIM): 5 Toileting(FIM): 5 Toilet/Commode Transfer(FIM): 5 Additional Short Term Goals: 1-Demonstrate ADL Tasks, 2-Verbalize Understanding , 3-ImproveStrength/Mahad 1=Demonstrate adherence to instructed precautions during ADL tasks. 2=Patient will verbalize/demonstrate understanding of assistive devices/ modifications for ADL. 3=Patient will improve strength/tolerance for activity to enable patient to perform ADL's. OT Detention Goals Machine Burrer Goals Time Frame: Sep 08, 2017 Eating (FIM): 7 Eating (QC): 6 Groomin Oral Hygiene (QC): 6 Bathing(FIM): 6 Shower/Bathe Self (QC): 6 Upper Body Dressing(FIM): 6 Upper Body Dressing (QC): 6 Lower Body Dressing(FIM): 6 Lower Body Dressing (QC): 6 On/Off Footwear (QC): 6 Toileting(FIM): 6 Toileting Hygiene (QC): 6 Toilet/Commode Transfer(FIM): 6 Toilet/Commode Transfer (QC): 6 Shower Transfer(FIM): 5 Additional Goals: 1-Demonstrate ADL Tasks, 2-Verbalize Understanding, 3- ImproveStrength/Mahad 1=Demonstrate adherence to instructed precautions during ADL tasks. 2=Patient will verbalize/demonstrate understanding of assistive devices/ modifications for ADL. 3=Patient will improve strength/tolerance for activity to enable patient to perform ADL's. OT Education/Plan Problem List/Assessment Pt would benefit from skilled OT to increase her independence in basic self care to allow her to safely return home with family after long hospitalization Discharge Recommendations Plan/Recommendations: Continue POC Treatment Plan/Plan of Care Patient would benefit from OT for education, treatment and training to promote independence in ADL's, mobility, safety and/or upper extremity function for ADL' s. Plan of Care: ADL Retraining, Functional Mobility, Group Exercise/Act as Ind ( education, exercise, activity tolerance, socialization, funct mobility), UE Funct Exercise/Act, UE Neuromus Re-Ed/Coord Treatment Duration: Sep 08, 2017 Frequency: At least 5 of 7 days/Wk (IRF) Estimated Hrs Per Day: 1.5 hours per day Agreement: Yes Rehab Potential: Good Time/GCodes Start Time: 08:30 Stop Time: 10:00 Total Time Billed (hr/min): 90 Billed Treatment Time 1 visit-ADL 5 (70 min) EX 1 (20 min) ANA HWANG Sep 04, 2017 09:58
[2017-09-04] MEDS: DULoxetine 30 MG (CYMBALTA) CAP PO SCH (11:00)
[2017-09-04 12:02] LABS: CALCIUM 7.8 MG/DL (8.5-10.1); CREATININE SERUM 2.39 MG/DL (0.60-1.30); POTASSIUM 4.1 MMOL/L (3.6-5.0)
--- NOTE | 2017-09-04 12:05 | Physical Therapy Daily Note ---
PT Daily Note-Current Subjective pt. agrees to Rx. States her will not picking belt operator the groceries and bring them home even though he works at [employer]. Pt. states she cant go home until she can walk int o the bathroom at home to use the toilet, the w/c will not fit in the bathroom. Pt. states her has stated he wont be emptying the BSC for her anymore. Pain Numeric Pain Scale: 0-No Pain Mental Status Patient Orientation: Normal For Age Attachments: Other-See Comments (prothesis left LE) Transfers Functional [place] Measure 0=Not Assessed/NA 4=Minimal Assistance 1=Total Assistance 5=Supervision or Setup 2=Maximal Assistance 6=Modified [place] 3=Moderate Assistance 7=Complete IndependenceIRFPAI Quality Coding Scale 6 Independent with activity with or without an assistive device 5 Patient requires set up or clean up by helper. Patient completes activity by themselves 4 Supervision or touching assist (CGA). [place] provide cues , steadying assist 3 The helper provides less than half the effort to complete the activity 2 The helper provides more than half the effort to complete the activity 1 Dependent. The helper does all the effort to complete an activity 7 Patient refused to complete or attempt activity 9 The patient did not perform the activity before the current illness or injury 88 Not attempted due to Medical conditions or safety concerns Transfers (B, C, W/C) (FIM): 4 Scootin Rollin Supine to/from Sit: 4 (needs assist frofm sup to sit) Sit to/from Stand: 5 Weight Bearing Right Lower Extremity: Right Weight Bearing/Tolerated Left Lower Extremity: Left Weight Bearing/Tolerated Gait Training Does the Patient Walk?: Yes Gait (FIM): 2 Distance (FIM): 5=200-90 ft (60ftx2) Gait Level of Assist: 4 Gait Persons Needed: 1 Gait Assistive Device: FWW Exercises Supine Ex: Bridging, Ankle pumps, Quad Set, Rolling, Glut sets, Heel Slides, Short Arc Quads, Scooting, Straight leg raise, Hip abd/add Supine Reps: 20 Seated Therapy Exercises: Sit to stand, Long arc quads, Hip flexion Seated Reps: 10 Assessment Current Status: Good Progress flexion contracture LLE at approx 14 degrees PT Short Term Goals Short Term Goals Time Frame: Aug 30, 2017 Gait (FIM): 2 Gait Distance Comment: 50' Gait Level of Assist: 4 Gait Assistive Device: FWW Wheelchair Distance: 150' PT Fci Goals Fci Goals PT Fci Goals Time Frame: Sep 13, 2017 Transfers (B,C,W/C) (FIM): 6 Sit to Lying (QC): 6 Lying-Sitting on Side/Bed(QC): 6 Sit to Stand (QC): 6 Rollin Roll Left to Right (QC): 6 Chair/Fyk-pc-Dxivy Xfer(QC): 6 Car Transfer (QC): 6 Gait (FIM): 2 Distance: 100' Walk 10 feet (QC): 4 Walk 10ft-Uneven Surface(QC): 4 Walk 50ft with 2 Turns (QC): 4 Gait Level of Assist: 5 Gait Assistive Device: FWW Wheelchair (FIM): 6 Stairs (FIM): 1 # of Steps: 1 1 Step (curb) (QC): 4 Stairs Level Of Assist: 4 PT Plan Treatment/Plan Treatment Plan: Continue Plan of Care Treatment Plan: Bed Mobility, Education, Functional Activity Mahad, Functional Strength, Group Therapy, Gait, Safety, Therapeutic Exercise, Transfers Treatment Duration: Sep 13, 2017 Frequency: At least 5 of 7 days/Wk (IRF) Estimated Hrs Per Day: 1.5 hours per day Patient and/or Family Agrees t: Yes Safety Risks/Education Patient Education: Gait Training, Transfer Techniques, Correct Positioning, Disease Process, Safety Issues Teaching Recipient: Patient Teaching Methods: Demonstration, Discussion Response to Teaching: Verbalize Understanding, Return Demonstration, Reinforcement Needed discussed edema in LEs, kidneys, and extension of L knee Time/GCodes Time In: 1100 Time Out: 1200 Total Billed Treatment Time: 60 Total Billed Treatment 1,EX25m,GT20m,FA15m G Codes Necessary: MARINO Roca LIVE IN COMPANION Sep 04, 2017 12:05
--- NOTE | 2017-09-04 13:32 | PM & R (SOAP) Progress Note ---
Subjective This was a face to face visit with the patient. Date Seen by Provider: Sep 04, 2017 Time Seen by Provider: 12:50 Subjective/Events-last exam Patient was seen in her room this AM Patient SBA for transfers Has lost another [address] Wang note and orders Objective Physician Exam Last Set of Vital Signs Vital Signs Date Time Temp Pulse Resp B/P (MAP) Pulse Ox O2 Delivery O2 Flow Rate FiO2 09/04/17 08:45 Room Air 09/04/17 08:40 84 20 111/78 (89) 97 09/04/17 06:00 97.5 Capillary Refill : I&O Intake and Output 09/04/17 00:00 Intake Total 1772 ml Output Total 4400 ml Balance -2628 ml Intake Oral 1772 ml Output Urine Total 4400 ml General: Alert, Oriented X3, Cooperative, No Acute Distress HEENT: Atraumatic, PERRLA, EOMI, Mucous Memb Moist/[place] Neck: Supple, No JVD Lungs: Clear to Auscultation Heart: Regular Rate Abdomen: Normal Bowel Sounds, Soft, No Tenderness Extremities: Other (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 Mild rt cellulitis of the leg) Neuro: Other (generalized weakness) Results Lab Data Laboratory Tests 09/01/17 16:41: Glucometer 96 09/01/17 21:05: Glucometer 156H 09/02/17 05:56: Glucometer 121H 09/02/17 11:02: Glucometer 105 09/02/17 16:07: Glucometer 132H 09/02/17 20:20: Glucometer 127H 09/03/17 05:48: Glucometer 147H 09/03/17 11:00: Glucometer 216H 09/03/17 16:37: Glucometer 148H 09/03/17 20:18: Glucometer 167H 09/04/17 05:43: Glucometer 140H 09/04/17 11:06: Glucometer 120H 09/04/17 11:15: Sodium Level 137, Potassium Level 4.1, Chloride Level 105, Carbon Dioxide Level 20L, Anion Gap 12, Blood Urea Nitrogen 49H, Creatinine 2.39H, Estimat Glomerular Filtration Rate 21, BUN/Creatinine Ratio 21, Glucose Level 111H, Calcium Level 7.8L Microbiology 08/24/17 Urine Culture - Final, Complete See Comments Sent To Rml Assessment/Plan Assessment and Plan General debil secondary to acute on chronic K D Renal Physician has adjusted meds Fliud overload continues to diurese Flex Contracture BKA continue to stretch Type 2 DM E coli UTI treated Residual limb scabbing DR Darden has addressed YUDY HTN A FIB and above controlled Acute on chronic diastolic CHF compensated Tobaccoism abstaining Plan Continue PT/OT Monitor wt and Blood pressure and adjust meds as appropriate Team Conference 09-06-17 Goal return home with spouse Modified Independent to supervision for adls and mobility skills (1) Renal failure (ARF), acute on chronic Qualifiers: Qualified Codes: N17.9 - Acute kidney failure, unspecified; N18.4 - Chronic kidney disease, stage 4 (severe) Status: Acute Co-Morbidities that are continuing to impact the rehab process: (include details ) IRMA ESPINOZA MD Sep 04, 2017 13:32
--- NOTE | 2017-09-04 14:20 | Physical Therapy Daily Note ---
PT Daily Note-Current Subjective Patient agrees to PT. No c/o. Pain Numeric Pain Scale: 0-No Pain Location: No Pain Reported Mental Status Patient Orientation: Normal For Age Transfers Functional [place] Measure 0=Not Assessed/NA 4=Minimal Assistance 1=Total Assistance 5=Supervision or Setup 2=Maximal Assistance 6=Modified [place] 3=Moderate Assistance 7=Complete IndependenceIRFPAI Quality Coding Scale 6 Independent with activity with or without an assistive device 5 Patient requires set up or clean up by helper. Patient completes activity by themselves 4 Supervision or touching assist (CGA). [place] provide cues , steadying assist 3 The helper provides less than half the effort to complete the activity 2 The helper provides more than half the effort to complete the activity 1 Dependent. The helper does all the effort to complete an activity 7 Patient refused to complete or attempt activity 9 The patient did not perform the activity before the current illness or injury 88 Not attempted due to Medical conditions or safety concerns Transfers (B, C, W/C) (FIM): 5 Scootin Sit to/from Stand: 5 Sit to Stand (QC): 5 Weight Bearing Right Lower Extremity: Right Weight Bearing/Tolerated Left Lower Extremity: Left Weight Bearing/Tolerated Gait Training Does the Patient Walk?: Yes Gait (FIM): 2 Distance (FIM): 9=366-35 ft Distance: 75' x 3 Walk 10 feet (QC): 5 Walk 50 ft with 2 Turns(QC): 5 Gait Level of Assist: 5 Gait Assistive Device: FWW slow, step to gait sequence Stair Training Stairs (FIM): 2 #of Steps: 3 1 Step (curb) (QC): 4 Stairs: Pattern: Step to Level of Assist: 4 Assessment Patient performs step training with use of parallel bars on platform step. She remains very unsure due to diminished proprioception with left BKA prosthesis. PT Short Term Goals Short Term Goals Time Frame: Aug 30, 2017 Gait (FIM): 2 Gait Distance Comment: 50' Gait Level of Assist: 4 Gait Assistive Device: FWW Wheelchair Distance: 150' PT Med Aide Goals [facility] Goals PT Med Aide Goals Time Frame: Sep 13, 2017 Transfers (B,C,W/C) (FIM): 6 Sit to Lying (QC): 6 Lying-Sitting on Side/Bed(QC): 6 Sit to Stand (QC): 6 Rollin Roll Left to Right (QC): 6 Chair/Xzs-ap-Yfpfs Xfer(QC): 6 Car Transfer (QC): 6 Gait (FIM): 2 Distance: 100' Walk 10 feet (QC): 4 Walk 10ft-Uneven Surface(QC): 4 Walk 50ft with 2 Turns (QC): 4 Gait Level of Assist: 5 Gait Assistive Device: FWW Wheelchair (FIM): 6 Stairs (FIM): 1 # of Steps: 1 1 Step (curb) (QC): 4 Stairs Level Of Assist: 4 PT Plan Treatment/Plan Treatment Plan: Continue Plan of Care Treatment Plan: Bed Mobility, Education, Functional Activity Mahad, Functional Strength, Group Therapy, Gait, Safety, Therapeutic Exercise, Transfers Treatment Duration: Sep 13, 2017 Frequency: At least 5 of 7 days/Wk (IRF) Estimated Hrs Per Day: 1.5 hours per day Patient and/or Family Agrees t: Yes Time/GCodes Time In: 1335 Time Out: 1410 Total Billed Treatment Time: 35 Total Billed Treatment 1 visit FA 20 min GT 15 min DEE FLORES PT Sep 04, 2017 14:20
[2017-09-04 16:21] VITALS: BP 109/72
[2017-09-04] MEDS ORDERED: DICLOFENAC 1% GEL 100 GM (VOLTAREN) TUBE TOP PRN (18:30)
--- NOTE | 2017-09-04 20:14 | Wound Care Assessment ---
Wound Care Assessment Date Seen by Provider: Sep 04, 2017 Time Seen by Provider: 20:09 Chief Complaint Swelling/pain R leg HPI The patient is a 56 year old female with venous insufficiency dermatitis of the R leg. The patient has been instructed to elevate and wrap with Selvin wraps. She is interviewed in her room seated with the R leg dependent and no wrap. She states she wanted to give the leg "some air". She is encouraged to elevate her leg above the heart for two hours three times a dayand to use compression to improve the status of her leg. Will see patient again as needed. Past Medical History: Admits Diabetes Type II Smoking Status: Current Everyday Smoker Review of Systems Cardiovascular: Edema Exam Vital Signs Date Time Temp Pulse Resp B/P (MAP) Pulse Ox O2 Delivery O2 Flow Rate FiO2 09/04/17 16:21 98.3 89 16 109/72 (84) 97 Room Air Capillary Refill : Skin: other (Diffuse erythema of R leg consistent with venous dermatitis.) Results Laboratory Tests 09/03/17 20:18: Glucometer 167H 09/04/17 05:43: Glucometer 140H 09/04/17 11:06: Glucometer 120H 09/04/17 11:15: Sodium Level 137, Potassium Level 4.1, Chloride Level 105, Carbon Dioxide Level 20L, Anion Gap 12, Blood Urea Nitrogen 49H, Creatinine 2.39H, Estimat Glomerular Filtration Rate 21, BUN/Creatinine Ratio 21, Glucose Level 111H, Calcium Level 7.8L 09/04/17 16:07: Glucometer 105 Microbiology 08/24/17 Urine Culture - Final, Complete See Comments Sent To l Assessment/Plan/Dx 1. Venous insufficiency dermatitis R leg. 2. Diabetes mellitus. 3. S/P L BKA. Plan: The patient is encouraged to elevate and use compression as ordered. Will see again as needed. QUINN HAWK MD Sep 04, 2017 20:14
[2017-09-04 20:24] VITALS: BP 106/70
[2017-09-04] MEDS: ACETAMINOPHEN 325 MG TABLET PO PRN (20:28)
[2017-09-04] MEDS: SIMvastatin 20 MG (ZOCOR) TAB PO SCH (20:29)
[2017-09-05 05:07] VITALS: BP 100/66
[2017-09-05] MEDS: inSUlin ASPART (NovoLOG) 1 UNIT/0.01 ML (CHARGE PER UNIT) SC SCH ×4 (05:39→21:04)
[2017-09-05] MEDS: CALCIUM ACETATE 667 MG CAP (PHOSLO) PO SCH ×3 (05:56→16:23)
[2017-09-05] MEDS: TORSEMIDE 20 MG (DEMADEX) TAB PO SCH ×2 (08:24→21:03)
[2017-09-05] MEDS: DULoxetine 30 MG (CYMBALTA) CAP PO SCH (08:24)
[2017-09-05] MEDS: CARVEDILOL 3.125 MG (COREG) TABLET PO SCH ×2 (08:25→21:03)
[2017-09-05] MEDS: APIXABAN 5 MG (ELIQUIS) TABLET PO SCH ×2 (08:25→21:03)
[2017-09-05] MEDS: AMIODARONE 200 MG (CORDARONE) TAB PO SCH (08:25)
[2017-09-05] MEDS: CLOPIDOGREL 75 MG (PLAVIX) TABLET PO SCH (08:25)
[2017-09-05] MEDS: GABAPENTIN 300 MG (NEURONTIN) CAP PO SCH ×3 (08:25→21:03)
[2017-09-05] MEDS: ACETAMINOPHEN 325 MG TABLET PO PRN ×2 (08:26→21:11)
--- NOTE | 2017-09-05 08:29 | Progress Note (SOAP) ---
Subjective Time Seen by Provider: 08:22 Subjective/Events-last exam Patient feeling better. Patient was in no 3 pounds. Kidney functions the same. Patient has renal insufficiency. Venous insufficiency. Diabetes. Left BKA Objective Exam Vital Signs Date Time Temp Pulse Resp B/P (MAP) Pulse Ox O2 Delivery O2 Flow Rate FiO2 09/05/17 08:17 Room Air 09/05/17 05:07 97.8 91 16 100/66 (77) 97 Room Air 09/04/17 21:34 Room Air 09/04/17 20:24 85 106/70 (82) 09/04/17 16:21 98.3 89 16 109/72 (84) 97 Room Air 09/04/17 08:45 Room Air 09/04/17 08:40 84 20 111/78 (89) 97 Room Air I & O 09/05/17 07:00 Intake Total 1890 ml Output Total 5800 ml Balance -3910 ml Capillary Refill : General Appearance: No Apparent Distress, WD/WN Results Lab Laboratory Tests 09/04/17 11:06: Glucometer 120H 09/04/17 11:15: Sodium Level 137, Potassium Level 4.1, Chloride Level 105, Carbon Dioxide Level 20L, Anion Gap 12, Blood Urea Nitrogen 49H, Creatinine 2.39H, Estimat Glomerular Filtration Rate 21, BUN/Creatinine Ratio 21, Glucose Level 111H, Calcium Level 7.8L 09/04/17 16:07: Glucometer 105 09/04/17 20:29: Glucometer 154H 09/05/17 04:51: Glucometer 79 Microbiology 08/24/17 Urine Culture - Final, Complete See Comments Sent To [facility] Assessment/Plan Assessment/Plan Assess & Plan/Chief Complaint Debility. Acute on chronic renal failure. Atrial fibrillation. Diabetes. BKA left. Sleep apnea obstructive. . 08/25/17. Debility. Acute on chronic renal failure. Atrial fibrillation. Diabetes. BKA. Obstructive sleep apnea. Patient feels of foot is slightly swollen Patient working hard yesterday. . 08/28/17. Debility. Acute and chronic renal failure. Atrial fibrillation. Diabetes Patient gained 5 pounds.. . 08/31/17 debility. Chronic renal failure. Atrial fibrillation. Diabetes Patient lost a little weight. . 09/01/17. Debility. Acute and chronic renal failure. Atrial fibrillation. Diabetes. Patient was 7 pounds. Patient put on Demadex by renal specialist. . 09/04/17. Debility. Chronic renal failure. Atrial fibrillation. Diabetes. Patient lost another 2 pounds. . 09/05/17. Debility. Chronic renal failure. Atrial fibrillation history. Diabetes. Patient lost another 3 pounds. Patient improving Clinical Quality Measures DVT/VTE Risk/Contraindication: Risk Factor Score Per Nursin RFS Level Per Nursing on Admit: 4+=Very High URSULA RENEE DO Sep 05, 2017 08:29
[2017-09-05] MEDS: inSUlin DETERMIR 1 UNIT/0.01 ML (LEVEMIR) CHARGE PER UNIT SQ SCH ×2 (08:30→21:04)
[2017-09-05] MEDS: NYSTATIN CREAM (MYCOSTATIN) 30 GM TUBE TP SCH ×2 (08:32→21:04)
[2017-09-05] MEDS: A & D OINT 60 GM TUBE TOP SCH (08:40)
--- NOTE | 2017-09-05 09:58 | Occupational Ther Daily Note ---
OT Current Status-Daily Note Subjective Pt alert, sitting in w/c. Pt agrees to therapy. No c/o pain. Nrsg in room. Mental Status/Objective Patient Orientation: Person, Place, Time, Situation Functional [place] Measure 0=Not Assessed/NA 4=Minimal Assistance 1=Total Assistance 5=Supervision or Setup 2=Maximal Assistance 6=Modified [place] 3=Moderate Assistance 7=Complete [place] ADL-Treatment Pt had taken shower prior to therapy session. Pt was in the process of dressing when MILLARD came into room. Pt retrieved clothing, completed dressing at w/c level. Pt using AE when necessary to assist with lower body dressing. Pt able to don/doff prosthesis by self. Pt completed grooming at w/c level. Functional [place] Measure 0=Not Assessed/NA 4=Minimal Assistance 1=Total Assistance 5=Supervision or Setup 2=Maximal Assistance 6=Modified [place] 3=Moderate Assistance 7=Complete IndependenceIRFPAI Quality Coding Scale 6 Independent with activity with or without an assistive device 5 Patient requires set up or clean up by helper. Patient completes activity by themselves 4 Supervision or touching assist (CGA). [place] provide cues , steadying assist 3 The helper provides less than half the effort to complete the activity 2 The helper provides more than half the effort to complete the activity 1 Dependent. The helper does all the effort to complete an activity 7 Patient refused to complete or attempt activity 9 The patient did not perform the activity before the current illness or injury 88 Not attempted due to Medical conditions or safety concerns Grooming (FIM): 6 Oral Hygiene (QC): 6 Upper Body (FIM): 6 Upper Body Dressing (QC): 6 Lower Body Dressing (FIM): 6 Lower Body Dressing (QC): 6 On/Off Footwear (QC): 6 Other Treatment Pt completed UE exercises to increase strength and activity tolerance for daily functional tasks. Arm bike completed for 15 min at 30 patton resistance, 1 break due to social staff worker came in to discuss AE with pt. Resistive clothespins completed 2x's with each hand. Medium resistance theraputty completed by finding small items to increase strength of pinch and wash plant operator. After therapy, pt sitting in [facility] completed fine motor tasks. All needs met in room. OT Short Term Goals Short Term Goals Time Frame: Aug 30, 2017 Bathing(FIM): 5 Lower Body Dressing(FIM): 5 Toileting(FIM): 5 Toilet/Commode Transfer(FIM): 5 Additional Short Term Goals: 1-Demonstrate ADL Tasks, 2-Verbalize Understanding , 3-ImproveStrength/Mahad 1=Demonstrate adherence to instructed precautions during ADL tasks. 2=Patient will verbalize/demonstrate understanding of assistive devices/ modifications for ADL. 3=Patient will improve strength/tolerance for activity to enable patient to perform ADL's. OT Custodial Goals [employer] Fusion Developer Goals Time Frame: Sep 08, 2017 Eating (FIM): 7 Eating (QC): 6 Groomin Oral Hygiene (QC): 6 Bathing(FIM): 6 Shower/Bathe Self (QC): 6 Upper Body Dressing(FIM): 6 Upper Body Dressing (QC): 6 Lower Body Dressing(FIM): 6 Lower Body Dressing (QC): 6 On/Off Footwear (QC): 6 Toileting(FIM): 6 Toileting Hygiene (QC): 6 Toilet/Commode Transfer(FIM): 6 Toilet/Commode Transfer (QC): 6 Shower Transfer(FIM): 5 Additional Goals: 1-Demonstrate ADL Tasks, 2-Verbalize Understanding, 3- ImproveStrength/Mahad 1=Demonstrate adherence to instructed precautions during ADL tasks. 2=Patient will verbalize/demonstrate understanding of assistive devices/ modifications for ADL. 3=Patient will improve strength/tolerance for activity to enable patient to perform ADL's. OT Education/Plan Problem List/Assessment Pt would benefit from skilled OT to increase her independence in basic self care to allow her to safely return home with family after long hospitalization Discharge Recommendations Plan/Recommendations: Continue POC Treatment Plan/Plan of Care Patient would benefit from OT for education, treatment and training to promote independence in ADL's, mobility, safety and/or upper extremity function for ADL' s. Plan of Care: ADL Retraining, Functional Mobility, Group Exercise/Act as Ind ( education, exercise, activity tolerance, socialization, funct mobility), UE Funct Exercise/Act, UE Neuromus Re-Ed/Coord Treatment Duration: Sep 08, 2017 Frequency: At least 5 of 7 days/Wk (IRF) Estimated Hrs Per Day: 1.5 hours per day Agreement: Yes Rehab Potential: Good Time/GCodes Start Time: 08:30 Stop Time: 10:00 Total Time Billed (hr/min): 90 Billed Treatment Time 1 visit-ADL 2 (30 min) EX 4 (60 min) ANA HWANG Sep 05, 2017 09:58
--- NOTE | 2017-09-05 11:49 | Physical Therapy Daily Note ---
PT Daily Note-Current Subjective Pt sitting at table working on Buz upon arrival. Pt agrees to PT. Pain Numeric Pain Scale: 4 Location: Left Location Body Site: Knee Pain Description: Ache Mental Status Patient Orientation: Person, Place, Time, Situation Transfers Functional [place] Measure 0=Not Assessed/NA 4=Minimal Assistance 1=Total Assistance 5=Supervision or Setup 2=Maximal Assistance 6=Modified [place] 3=Moderate Assistance 7=Complete IndependenceIRFPAI Quality Coding Scale 6 Independent with activity with or without an assistive device 5 Patient requires set up or clean up by helper. Patient completes activity by themselves 4 Supervision or touching assist (CGA). [place] provide cues , steadying assist 3 The helper provides less than half the effort to complete the activity 2 The helper provides more than half the effort to complete the activity 1 Dependent. The helper does all the effort to complete an activity 7 Patient refused to complete or attempt activity 9 The patient did not perform the activity before the current illness or injury 88 Not attempted due to Medical conditions or safety concerns Scootin Sit to/from Stand: 5 Sit to Stand (QC): 5 Weight Bearing Right Lower Extremity: Right Weight Bearing/Tolerated Left Lower Extremity: Left Weight Bearing/Tolerated Gait Training Does the Patient Walk?: Yes Distance (FIM): 3=150 ft Distance: 150' Walk 10 feet (QC): 5 Walk 50 ft with 2 Turns(QC): 5 Walk 150 ft (QC): 5 Gait Level of Assist: 5 Gait Persons Needed: 1 Gait Assistive Device: FWW Pt walks with slow & cautious gait pattern. Wheelchair Training Does the Pt Use a Wheelchair?: Yes Wheelchair Distance: 3=150 ft Distance: 150' Wheelchair Level of Assist: 6 Wheel 50 ft with 2 turns (QC): 6 Wheel 150 ft (QC): 6 Type of Wheelchair: Manual Stair Training Stair Training: Handrails/: 2 handrails #of Steps: 8 1 Step (curb) (QC): 5 4 Steps (QC): 5 Stairs: Pattern: Step to Level of Assist: 5 Exercises NuStep Minutes: 15 NuStep Workload: 6 Treatments Pt transfers from [facility] to [facility] for 15m at 6. Pt completes practices on single pink step x8 (break after each 4 steps). Pt attempts stair case but cannot get LE on step to pull up weak LE. Pt rest before walking in [facility]. Pt returns to room to use restroom. Pt & RADIO SCRIPT WRITER also discuss plan for discharge since weekly mtg is tomorrow. Manager Stylist had suggested discharge on /Monday to maximize days but still leave a few in case needed the rest of the year. Pt resting in room with RLE propped up on pillow. Assessment Current Status: Good Progress Pt nervous about possible discharge and SP support. SP refused family training/ mtg. PT Short Term Goals Short Term Goals Time Frame: Aug 30, 2017 Gait (FIM): 2 Gait Distance Comment: 50' Gait Level of Assist: 4 Gait Assistive Device: FWW Wheelchair Distance: 150' PT Sales Audit Clerk Goals [facility] Goals PT Sales Audit Clerk Goals Time Frame: Sep 13, 2017 Transfers (B,C,W/C) (FIM): 6 Sit to Lying (QC): 6 Lying-Sitting on Side/Bed(QC): 6 Sit to Stand (QC): 6 Rollin Roll Left to Right (QC): 6 Chair/Eol-dp-Lxvpg Xfer(QC): 6 Car Transfer (QC): 6 Gait (FIM): 2 Distance: 100' Walk 10 feet (QC): 4 Walk 10ft-Uneven Surface(QC): 4 Walk 50ft with 2 Turns (QC): 4 Gait Level of Assist: 5 Gait Assistive Device: FWW Wheelchair (FIM): 6 Stairs (FIM): 1 # of Steps: 1 1 Step (curb) (QC): 4 Stairs Level Of Assist: 4 PT Plan Problem List Problem List: Activity Tolerance, Functional Strength, Gait Treatment/Plan Treatment Plan: Continue Plan of Care Treatment Plan: Bed Mobility, Education, Functional Activity Mahad, Functional Strength, Group Therapy, Gait, Safety, Therapeutic Exercise, Transfers Treatment Duration: Sep 13, 2017 Frequency: At least 5 of 7 days/Wk (IRF) Estimated Hrs Per Day: 1.5 hours per day Patient and/or Family Agrees t: Yes Safety Risks/Education Patient Education: Gait Training, Transfer Techniques, Steps, Correct Positioning, Safety Issues Teaching Recipient: Patient Teaching Methods: Discussion Response to Teaching: Verbalize Understanding Time/GCodes Time In: 1000 Time Out: 1100 Total Billed Treatment Time: 60 Total Billed Treatment 1, GT (15m), [facility] (15m) & FA x2 (30m) G Codes Necessary: No TREIBER,ALETHEA RADIO SCRIPT WRITER Sep 05, 2017 11:49
--- NOTE | 2017-09-05 14:00 | Physical Therapy Daily Note ---
PT Daily Note-Current Subjective Patient request stair training. Pain Numeric Pain Scale: 0-No Pain Location: No Pain Reported Mental Status Patient Orientation: Normal For Age Transfers Functional [place] Measure 0=Not Assessed/NA 4=Minimal Assistance 1=Total Assistance 5=Supervision or Setup 2=Maximal Assistance 6=Modified [place] 3=Moderate Assistance 7=Complete IndependenceIRFPAI Quality Coding Scale 6 Independent with activity with or without an assistive device 5 Patient requires set up or clean up by helper. Patient completes activity by themselves 4 Supervision or touching assist (CGA). Leon provide cues , steadying assist 3 The helper provides less than half the effort to complete the activity 2 The helper provides more than half the effort to complete the activity 1 Dependent. The helper does all the effort to complete an activity 7 Patient refused to complete or attempt activity 9 The patient did not perform the activity before the current illness or injury 88 Not attempted due to Medical conditions or safety concerns Transfers (B, C, W/C) (FIM): 5 Scootin Sit to/from Stand: 5 Sit to Stand (QC): 5 Weight Bearing Right Lower Extremity: Right Weight Bearing/Tolerated Left Lower Extremity: Left Weight Bearing/Tolerated Stair Training Stair Training: Handrails/: 2 handrails (parallel bars) Stairs (FIM): 2 #of Steps: 2 1 Step (curb) (QC): 5 Stairs: Pattern: Step to Level of Assist: 5 platform and curb step utilized in parallel bars x 6 sets Assessment Patient unable to perform stair training on stairs secondary to weight distribution utilized with parallel bars vs. hand rails. Patient is SBA in parallel bars. PT Short Term Goals Short Term Goals Time Frame: Aug 30, 2017 Gait (FIM): 2 Gait Distance Comment: 50' Gait Level of Assist: 4 Gait Assistive Device: FWW Wheelchair Distance: 150' PT Screen Maker Goals [facility] Goals PT Screen Maker Goals Time Frame: Sep 13, 2017 Transfers (B,C,W/C) (FIM): 6 Sit to Lying (QC): 6 Lying-Sitting on Side/Bed(QC): 6 Sit to Stand (QC): 6 Rollin Roll Left to Right (QC): 6 Chair/Bdv-jy-Ikgwk Xfer(QC): 6 Car Transfer (QC): 6 Gait (FIM): 2 Distance: 100' Walk 10 feet (QC): 4 Walk 10ft-Uneven Surface(QC): 4 Walk 50ft with 2 Turns (QC): 4 Gait Level of Assist: 5 Gait Assistive Device: FWW Wheelchair (FIM): 6 Stairs (FIM): 1 # of Steps: 1 1 Step (curb) (QC): 4 Stairs Level Of Assist: 4 PT Plan Treatment/Plan Treatment Plan: Continue Plan of Care Treatment Plan: Bed Mobility, Education, Functional Activity Mahad, Functional Strength, Group Therapy, Gait, Safety, Therapeutic Exercise, Transfers Treatment Duration: Sep 13, 2017 Frequency: At least 5 of 7 days/Wk (IRF) Estimated Hrs Per Day: 1.5 hours per day Patient and/or Family Agrees t: Yes Time/GCodes Time In: 1325 Time Out: 1355 Total Billed Treatment Time: 30 Total Billed Treatment 1 visit FA x 2 30 min DEE FLORES PT Sep 05, 2017 14:00
--- NOTE | 2017-09-05 15:43 | PM & R (SOAP) Progress Note ---
Subjective This was a face to face visit with the patient. Date Seen by Provider: Sep 05, 2017 Time Seen by Provider: 07:50 Subjective/Events-last exam Patient was seen in her room this AM Patient SBA for transfers Prospthetist in to adjust left BKA prostheise to accomadate for contracture.RN indicates that Patient c/o vaginal dryness which she relates to med change will f/u Review of Systems vaginal dryness Objective Physician Exam Last Set of Vital Signs Vital Signs Date Time Temp Pulse Resp B/P (MAP) Pulse Ox O2 Delivery O2 Flow Rate FiO2 09/05/17 08:17 Room Air 09/05/17 05:07 97.8 91 16 100/66 (77) 97 Capillary Refill : I&O Intake and Output 09/05/17 00:00 Intake Total 1816 ml Output Total 6200 ml Balance -4384 ml Intake Oral 1816 ml Output Urine Total 6200 ml # Bowel Movements 1 General: Alert, Oriented X3, Cooperative, No Acute Distress HEENT: Atraumatic, PERRLA, EOMI, Mucous Memb Moist/[place] Neck: Supple, No JVD Lungs: Clear to Auscultation Heart: Regular Rate Abdomen: Normal Bowel Sounds, Soft, No Tenderness Extremities: Other (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 Mild rt cellulitis of the leg) Neuro: Other (generalized weakness) Results Lab Data Laboratory Tests 09/02/17 16:07: Glucometer 132H 09/02/17 20:20: Glucometer 127H 09/03/17 05:48: Glucometer 147H 09/03/17 11:00: Glucometer 216H 09/03/17 16:37: Glucometer 148H 09/03/17 20:18: Glucometer 167H 09/04/17 05:43: Glucometer 140H 09/04/17 11:06: Glucometer 120H 09/04/17 11:15: Sodium Level 137, Potassium Level 4.1, Chloride Level 105, Carbon Dioxide Level 20L, Anion Gap 12, Blood Urea Nitrogen 49H, Creatinine 2.39H, Estimat Glomerular Filtration Rate 21, BUN/Creatinine Ratio 21, Glucose Level 111H, Calcium Level 7.8L 09/04/17 16:07: Glucometer 105 09/04/17 20:29: Glucometer 154H 09/05/17 04:51: Glucometer 79 09/05/17 10:58: Glucometer 148H Microbiology 08/24/17 Urine Culture - Final, Complete See Comments Sent To Rml Assessment/Plan Assessment and Plan General debil secondary to acute on chronic KD Renal Physician has adjusted meds Fluid overload diuresing with Wt loss documented by RN Vaginal dryness will rx Flex contracture left BKA English As A Second Language Teacher making adjustments Type 2 DM E COLI UTI teated Residual limb scabbing DR Darden has addressed YUDY HTN controlled A FIB controlled Acute on chronic diastolic dysfunction compensated with meds Tobaccoism abstaining Plan Continue PT/OT F/u re vaginal dryness F/U re improvemenets made with adjustment in prosthesis Team Conference tomorrow Goal return Home with spouse at [facility] to supervision fo adls and mobility skills (1) Renal failure (ARF), acute on chronic Qualifiers: Qualified Codes: N17.9 - Acute kidney failure, unspecified; N18.4 - Chronic kidney disease, stage 4 (severe) Status: Acute Co-Morbidities that are continuing to impact the rehab process: (include details ) IRMA ESPINOZA MD Sep 05, 2017 15:43
[2017-09-05 18:00] VITALS: BP 112/76
[2017-09-05 21:02] VITALS: BP 128/82
[2017-09-05] MEDS: SIMvastatin 20 MG (ZOCOR) TAB PO SCH (21:03)
[2017-09-05] MEDS: ALPRAZolam 0.5 MG (XANAX) TAB PO PRN (21:11)
[2017-09-06] MEDS: inSUlin ASPART (NovoLOG) 1 UNIT/0.01 ML (CHARGE PER UNIT) SC SCH ×4 (05:48→21:38)
[2017-09-06] MEDS: CALCIUM ACETATE 667 MG CAP (PHOSLO) PO SCH ×3 (06:19→16:25)
[2017-09-06 06:21] VITALS: BP 119/73
--- NOTE | 2017-09-06 07:24 | PM & R (SOAP) Progress Note ---
Subjective This was a face to face visit with the patient. Date Seen by Provider: Sep 06, 2017 Time Seen by Provider: 07:35 Subjective/Events-last exam Patient was seen in her room this AM,Patient SBA for transfers Review of Systems vaginal dryness Objective Physician Exam Last Set of Vital Signs Vital Signs Date Time Temp Pulse Resp B/P (MAP) Pulse Ox O2 Delivery O2 Flow Rate FiO2 09/06/17 06:21 97.2 91 20 119/73 (88) 95 Room Air Capillary Refill : I&O Intake and Output 09/06/17 00:00 Intake Total 1820 ml Output Total 4600 ml Balance -2780 ml Intake Oral 1820 ml Output Urine Total 4600 ml # Bowel Movements 2 General: Alert, Oriented X3, Cooperative, No Acute Distress HEENT: Atraumatic, PERRLA, EOMI, Mucous Memb Moist/[place] Neck: Supple, No JVD Lungs: Clear to Auscultation Heart: Regular Rate Abdomen: Normal Bowel Sounds, Soft, No Tenderness Extremities: Other (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 Mild rt cellulitis of the leg) Neuro: Other (generalized weakness) Results Lab Data Laboratory Tests 09/03/17 11:00: Glucometer 216H 09/03/17 16:37: Glucometer 148H 09/03/17 20:18: Glucometer 167H 09/04/17 05:43: Glucometer 140H 09/04/17 11:06: Glucometer 120H 09/04/17 11:15: Sodium Level 137, Potassium Level 4.1, Chloride Level 105, Carbon Dioxide Level 20L, Anion Gap 12, Blood Urea Nitrogen 49H, Creatinine 2.39H, Estimat Glomerular Filtration Rate 21, BUN/Creatinine Ratio 21, Glucose Level 111H, Calcium Level 7.8L 09/04/17 16:07: Glucometer 105 09/04/17 20:29: Glucometer 154H 09/05/17 04:51: Glucometer 79 09/05/17 10:58: Glucometer 148H 09/05/17 16:11: Glucometer 123H 09/05/17 20:26: Glucometer 203H 09/06/17 05:43: Glucometer 113H Microbiology 08/24/17 Urine Culture - Final, Complete See Comments Sent To Rml Assessment/Plan Assessment and Plan General debil secondary to acute on chronic K D Renal Physician has adjusted meds Fluid overload diuresing Vaginal dryness f/u with DR tomas Flex contracture Left BKA Prostetist from [place] has made adjustemnt yesterday to accomadate Type 2 DM E coli UTI treated Residual limb scabbing improving with RX YUDY HTN controlled A FIB controlled Acute on chronic diastolic dysfunction compensated with meds Tobaccoism abstaining Plan Contine PT/OT Team Conference later today-See report for full functional update and POC and ELOS Probable discharge by end of week F/U with DR tomas re above outstanding concerns (1) Renal failure (ARF), acute on chronic Qualifiers: Qualified Codes: N17.9 - Acute kidney failure, unspecified; N18.4 - Chronic kidney disease, stage 4 (severe) Status: Acute Co-Morbidities that are continuing to impact the rehab process: (include details ) IRMA ESPINOZA MD Sep 06, 2017 07:24
--- NOTE | 2017-09-06 08:16 | Progress Note (SOAP) ---
Subjective Time Seen by Provider: 08:10 Subjective/Events-last exam Patient resting comfortably today. Patient has no complaints. Patient has renal insufficiency. Objective Exam Vital Signs Date Time Temp Pulse Resp B/P (MAP) Pulse Ox O2 Delivery O2 Flow Rate FiO2 09/06/17 06:21 97.2 91 20 119/73 (88) 95 Room Air 09/05/17 21:02 91 128/82 (97) 09/05/17 20:06 Room Air 09/05/17 18:00 97.8 79 14 112/76 (88) 95 Room Air 09/05/17 08:17 Room Air I & O 09/06/17 07:00 Intake Total 1580 ml Output Total 3750 ml Balance -2170 ml Capillary Refill : General Appearance: No Apparent Distress, WD/WN HEENT: Normal ENT Inspection Neck: Normal Inspection Respiratory: No Accessory Muscle Use, No Respiratory Distress Results Lab Laboratory Tests 09/05/17 10:58: Glucometer 148H 09/05/17 16:11: Glucometer 123H 09/05/17 20:26: Glucometer 203H 09/06/17 05:43: Glucometer 113H Microbiology 08/24/17 Urine Culture - Final, Complete See Comments Sent To [facility] Assessment/Plan Assessment/Plan Assess & Plan/Chief Complaint Debility. Acute on chronic renal failure. Atrial fibrillation. Diabetes. BKA left. Sleep apnea obstructive. . 08/25/17. Debility. Acute on chronic renal failure. Atrial fibrillation. Diabetes. BKA. Obstructive sleep apnea. Patient feels of foot is slightly swollen Patient working hard yesterday. . 08/28/17. Debility. Acute and chronic renal failure. Atrial fibrillation. Diabetes Patient gained 5 pounds.. . 08/31/17 debility. Chronic renal failure. Atrial fibrillation. Diabetes Patient lost a little weight. . 09/01/17. Debility. Acute and chronic renal failure. Atrial fibrillation. Diabetes. Patient was 7 pounds. Patient put on Demadex by renal specialist. . 09/04/17. Debility. Chronic renal failure. Atrial fibrillation. Diabetes. Patient lost another 2 pounds. . 09/05/17. Debility. Chronic renal failure. Atrial fibrillation history. Diabetes. Patient lost another 3 pounds. Patient improving. . . Debility. Chronic renal failure. Diabetes. Patient states she didn't lose any weight today Clinical Quality Measures DVT/VTE Risk/Contraindication: Risk Factor Score Per Nursin RFS Level Per Nursing on Admit: 4+=Very High URSULA RENEE DO Sep 06, 2017 08:16
--- NOTE | 2017-09-06 09:29 | Physical Therapy Daily Note ---
PT Daily Note-Current Subjective Pt sitting in [facility] upon arrival. Pt agrees to PT. Pt reports feeling nervous about discharge tomorrow. Pain Numeric Pain Scale: 3 Location: Left Location Body Site: Knee Pain Description: Ache Mental Status Patient Orientation: Person, Place, Time, Situation Transfers Functional [place] Measure 0=Not Assessed/NA 4=Minimal Assistance 1=Total Assistance 5=Supervision or Setup 2=Maximal Assistance 6=Modified [place] 3=Moderate Assistance 7=Complete IndependenceIRFPAI Quality Coding Scale 6 Independent with activity with or without an assistive device 5 Patient requires set up or clean up by helper. Patient completes activity by themselves 4 Supervision or touching assist (CGA). [place] provide cues , steadying assist 3 The helper provides less than half the effort to complete the activity 2 The helper provides more than half the effort to complete the activity 1 Dependent. The helper does all the effort to complete an activity 7 Patient refused to complete or attempt activity 9 The patient did not perform the activity before the current illness or injury 88 Not attempted due to Medical conditions or safety concerns Transfers (B, C, W/C) (FIM): 6 Scootin Rollin Roll Left to Right (QC): 6 Supine to/from Sit: 6 Sit to/from Stand: 6 Sit to Lying (QC): 6 Sit to Stand (QC): 6 Chair/Bll-kh-Lgpgy Xfer(QC): 6 Bed to/from Chair: 6 Car Transfer (QC): 5 Weight Bearing Right Lower Extremity: Right Weight Bearing/Tolerated Left Lower Extremity: Left Weight Bearing/Tolerated Gait Training Does the Patient Walk?: Yes Distance (FIM): 3=150 ft Distance: 250' Walk 10 feet (QC): 6 Walk 50 ft with 2 Turns(QC): 6 Walk 150 ft (QC): 6 Walking 10ft/uneven surface-QC: 6 Gait Level of Assist: 6 Gait Persons Needed: 1 Gait Assistive Device: FWW Pt walks with slow levon, slightly antalgic from adjustment to prosthetic from yesterday. Wheelchair Training Does the Pt Use a Wheelchair?: Yes Wheelchair Distance: 3=150 ft Distance: 150' Wheelchair Level of Assist: 6 Wheel 50 ft with 2 turns (QC): 6 Wheel 150 ft (QC): 6 Type of Wheelchair: Manual Stair Training Stair Training: Handrails/: 2 handrails Stairs (FIM): 2 #of Steps: 4 1 Step (curb) (QC): 5 4 Steps (QC): 5 12 Steps (QC): 88 Stairs: Pattern: Step to Level of Assist: 5 Pt completes 4 single pink steps using //bars as handrails. Balance Picking up an Object (QC): 88 Special Test Comments This is an unsafe item to test at this time due to balance. Treatments Pt dressed self at [facility] before ambulating to restroom. Pt transfers using FWW at Mod I, car transfers at Mod I, ambulates across varying surface as well as in hallway using FWW at Mod I, completes bed mobility at Mod I. Pt completes 4 single steps at SBA using //bars as handrails. Pt returns to room to rest at end of tx. Pt has all needs met & OT to arrive shortly. Assessment Current Status: Good Progress Pt continues to be nervous about discharge, buzz. ambulating stairs. Therapy & Psychologist Educational has ask for hand rails to be installed but this has been denied by pt. Pt states Sp or Son will assist. Pt has made improves but still fatigues and needs rest breaks as needed. PT Short Term Goals Short Term Goals Time Frame: Aug 30, 2017 Gait (FIM): 2 Gait Distance Comment: 50' Gait Level of Assist: 4 Gait Assistive Device: FWW Wheelchair Distance: 150' PT Penitentiary Goals Penitentiary Goals PT Penitentiary Goals Time Frame: Sep 13, 2017 Transfers (B,C,W/C) (FIM): 6 Sit to Lying (QC): 6 Lying-Sitting on Side/Bed(QC): 6 Sit to Stand (QC): 6 Rollin Roll Left to Right (QC): 6 Chair/Kuy-wk-Mckua Xfer(QC): 6 Car Transfer (QC): 6 Gait (FIM): 2 Distance: 100' Walk 10 feet (QC): 4 Walk 10ft-Uneven Surface(QC): 4 Walk 50ft with 2 Turns (QC): 4 Gait Level of Assist: 5 Gait Assistive Device: FWW Wheelchair (FIM): 6 Stairs (FIM): 1 # of Steps: 1 1 Step (curb) (QC): 4 Stairs Level Of Assist: 4 PT Plan Problem List Problem List: Activity Tolerance, Functional Strength Treatment/Plan Treatment Plan: Continue Plan of Care Treatment Plan: Bed Mobility, Education, Functional Activity Mahad, Functional Strength, Group Therapy, Gait, Safety, Therapeutic Exercise, Transfers Treatment Duration: Sep 13, 2017 Frequency: At least 5 of 7 days/Wk (IRF) Estimated Hrs Per Day: 1.5 hours per day Patient and/or Family Agrees t: Yes Safety Risks/Education Patient Education: Gait Training, Steps, Correct Positioning, Safety Issues Teaching Recipient: Patient Teaching Methods: Discussion Response to Teaching: Verbalize Understanding Time/GCodes Time In: 815 Time Out: 915 Total Billed Treatment Time: 60 Total Billed Treatment 1, FA x2 (30m) & GT x2 (30m) G Codes Necessary: ALETHEA Hudson ASSEMBLER Sep 06, 2017 09:29
[2017-09-06] MEDS: APIXABAN 5 MG (ELIQUIS) TABLET PO SCH ×2 (09:34→21:38)
[2017-09-06] MEDS: CARVEDILOL 3.125 MG (COREG) TABLET PO SCH ×2 (09:34→20:45)
[2017-09-06] MEDS: AMIODARONE 200 MG (CORDARONE) TAB PO SCH (09:34)
[2017-09-06] MEDS: DULoxetine 30 MG (CYMBALTA) CAP PO SCH (09:34)
[2017-09-06] MEDS: TORSEMIDE 20 MG (DEMADEX) TAB PO SCH ×2 (09:34→21:38)
[2017-09-06] MEDS: CLOPIDOGREL 75 MG (PLAVIX) TABLET PO SCH (09:35)
[2017-09-06] MEDS: inSUlin DETERMIR 1 UNIT/0.01 ML (LEVEMIR) CHARGE PER UNIT SQ SCH ×2 (09:35→21:38)
[2017-09-06] MEDS: GABAPENTIN 300 MG (NEURONTIN) CAP PO SCH ×3 (09:35→21:38)
[2017-09-06] MEDS: NYSTATIN CREAM (MYCOSTATIN) 30 GM TUBE TP SCH ×2 (09:36→21:39)
[2017-09-06] MEDS: A & D OINT 60 GM TUBE TOP SCH (09:36)
--- NOTE | 2017-09-06 10:41 | Occupational Ther Daily Note ---
OT Current Status-Daily Note Subjective No pain reported. Appearance Pt. up in chair, dressed. Is willing to shower. Mental Status/Objective Patient Orientation: Person, Place, Time, Situation Functional [place] Measure 0=Not Assessed/NA 4=Minimal Assistance 1=Total Assistance 5=Supervision or Setup 2=Maximal Assistance 6=Modified [place] 3=Moderate Assistance 7=Complete [place] ADL-Treatment Functional [place] Measure 0=Not Assessed/NA 4=Minimal Assistance 1=Total Assistance 5=Supervision or Setup 2=Maximal Assistance 6=Modified [place] 3=Moderate Assistance 7=Complete IndependenceIRFPAI Quality Coding Scale 6 Independent with activity with or without an assistive device 5 Patient requires set up or clean up by helper. Patient completes activity by themselves 4 Supervision or touching assist (CGA). [place] provide cues , steadying assist 3 The helper provides less than half the effort to complete the activity 2 The helper provides more than half the effort to complete the activity 1 Dependent. The helper does all the effort to complete an activity 7 Patient refused to complete or attempt activity 9 The patient did not perform the activity before the current illness or injury 88 Not attempted due to Medical conditions or safety concerns Eating (FIM): 7 Eating (QC): 6 Grooming (FIM): 6 (Pt. is able to complete all grooming tasks with Mod I at wheelchair level.) Oral Hygiene (QC): 6 Bathing (FIM): 6 Shower/Bathe Self (QC): 6 Upper Body (FIM): 6 Upper Body Dressing (QC): 6 Lower Body Dressing (FIM): 4 (CGA in stance) Lower Body Dressing (QC): 4 On/Off Footwear (QC): 6 (Pt. is able to don left prosthetic leg and right shoe in sitting position with Mod I.) Toileting (FIM): 6 Toileting Hygiene (QC): 6 Transfers (B, C, W/C) (FIM): 5 Toilet/Commode Transfer (FIM): 5 Toilet Transfer (QC): 5 Other Treatment Pt. is able to transfer to shower with SBA. Is able to don clothing but does require CGA in stance with pulling up pants. Pt. is able to toilet with Mod I for stance when cleansing self. Pt. is discharging tomorrow. OT recommends that pt. lay on bed if needed at home to don LE clothing. Pt. states, "that is way too hard." Education OT Patient Education: Correct positioning, Modified ADL techniques, Progress toward Goal/Update tx plan, Purpose of tx/functional activities, Reviewed precautions, Rehab process, Transfer techniques Teaching Recipient: Patient Teaching Methods: Demonstration, Discussion Response to Teaching: Verbalize Understanding, Return Demonstration OT Short Term Goals Short Term Goals Time Frame: Aug 30, 2017 Bathing(FIM): 5 Lower Body Dressing(FIM): 5 Toileting(FIM): 5 Toilet/Commode Transfer(FIM): 5 Additional Short Term Goals: 1-Demonstrate ADL Tasks, 2-Verbalize Understanding , 3-ImproveStrength/Mahad 1=Demonstrate adherence to instructed precautions during ADL tasks. 2=Patient will verbalize/demonstrate understanding of assistive devices/ modifications for ADL. 3=Patient will improve strength/tolerance for activity to enable patient to perform ADL's. OT Federal [employer] Commissioner Goals Long-Term Goals Time Frame: Sep 08, 2017 Eating (FIM): 7 Eating (QC): 6 Groomin Oral Hygiene (QC): 6 Bathing(FIM): 6 Shower/Bathe Self (QC): 6 Upper Body Dressing(FIM): 6 Upper Body Dressing (QC): 6 Lower Body Dressing(FIM): 6 Lower Body Dressing (QC): 6 On/Off Footwear (QC): 6 Toileting(FIM): 6 Toileting Hygiene (QC): 6 Toilet/Commode Transfer(FIM): 6 Toilet/Commode Transfer (QC): 6 Shower Transfer(FIM): 5 Additional Goals: 1-Demonstrate ADL Tasks, 2-Verbalize Understanding, 3- ImproveStrength/Mahad 1=Demonstrate adherence to instructed precautions during ADL tasks. 2=Patient will verbalize/demonstrate understanding of assistive devices/ modifications for ADL. 3=Patient will improve strength/tolerance for activity to enable patient to perform ADL's. OT Education/Plan Problem List/Assessment Assessment: Decreased Activ Tolerance, Impaired I ADL's Pt would benefit from skilled OT to increase her independence in basic self care to allow her to safely return home with family after long hospitalization Discharge Recommendations Plan/Recommendations: Continue POC Therapy D/C Recommendations: Home w/ Family Support, Occupational Therapy Home Care Treatment Plan/Plan of Care Treatment,Training & Education: Yes Patient would benefit from OT for education, treatment and training to promote independence in ADL's, mobility, safety and/or upper extremity function for ADL' s. Plan of Care: ADL Retraining, Functional Mobility, Group Exercise/Act as Ind ( education, exercise, activity tolerance, socialization, funct mobility), UE Funct Exercise/Act, UE Neuromus Re-Ed/Coord Treatment Duration: Sep 08, 2017 Frequency: At least 5 of 7 days/Wk (IRF) Estimated Hrs Per Day: 1.5 hours per day Agreement: Yes Rehab Potential: Good Time/GCodes Start Time: 09:30 Stop Time: 10:30 Total Time Billed (hr/min): 60 Billed Treatment Time 1, ADL x 4 ALEXIS PAVON OT Sep 06, 2017 10:41
--- NOTE | 2017-09-06 12:38 | Physical Therapy Daily Note ---
PT Daily Note-Current Subjective Pt sitting in [facility] upon arrival. Pt agrees to PT. Pain Numeric Pain Scale: 3 Location: Left Location Body Site: Knee Pain Description: Ache Mental Status Patient Orientation: Person, Place, Time, Situation Transfers Functional [place] Measure 0=Not Assessed/NA 4=Minimal Assistance 1=Total Assistance 5=Supervision or Setup 2=Maximal Assistance 6=Modified [place] 3=Moderate Assistance 7=Complete IndependenceIRFPAI Quality Coding Scale 6 Independent with activity with or without an assistive device 5 Patient requires set up or clean up by helper. Patient completes activity by themselves 4 Supervision or touching assist (CGA). Corder provide cues , steadying assist 3 The helper provides less than half the effort to complete the activity 2 The helper provides more than half the effort to complete the activity 1 Dependent. The helper does all the effort to complete an activity 7 Patient refused to complete or attempt activity 9 The patient did not perform the activity before the current illness or injury 88 Not attempted due to Medical conditions or safety concerns Scootin Rollin Roll Left to Right (QC): 6 Supine to/from Sit: 6 Sit to/from Stand: 6 Sit to Lying (QC): 6 Sit to Stand (QC): 6 Weight Bearing Right Lower Extremity: Right Weight Bearing/Tolerated Left Lower Extremity: Left Weight Bearing/Tolerated Gait Training Does the Patient Walk?: Yes Distance (FIM): 3=150 ft Distance: 150' Walk 10 feet (QC): 6 Walk 50 ft with 2 Turns(QC): 6 Walk 150 ft (QC): 6 Gait Level of Assist: 6 Gait Persons Needed: 1 Gait Assistive Device: FWW Pt fatigues and needs rest breaks occasionally. Wheelchair Training Does the Pt Use a Wheelchair?: Yes Wheelchair Distance: 3=150 ft Distance: 350' Wheelchair Level of Assist: 6 Wheel 50 ft with 2 turns (QC): 6 Wheel 150 ft (QC): 6 Type of Wheelchair: Manual Treatments Pt propels to ramp to work on walking it. Pt takes rest break before walking back up the ramp. Pt then is propelled back to room due to fatigue. Pt uses restroom then completes bed mobility for FIM scoring. Pt transfers back [facility]. Pt resting back in [facility] at end of tx with all needs met, including call light & phone next to pt. Assessment Current Status: Good Progress Pt fatigues and needs rest breaks occasionally. PT Short Term Goals Short Term Goals Time Frame: Aug 30, 2017 Gait (FIM): 2 Gait Distance Comment: 50' Gait Level of Assist: 4 Gait Assistive Device: FWW Wheelchair Distance: 150' PT Lead Database Developer Goals Intermediate Goals PT Intermediate Goals Time Frame: Sep 13, 2017 Transfers (B,C,W/C) (FIM): 6 Sit to Lying (QC): 6 Lying-Sitting on Side/Bed(QC): 6 Sit to Stand (QC): 6 Rollin Roll Left to Right (QC): 6 Chair/Lxv-lq-Zlwvx Xfer(QC): 6 Car Transfer (QC): 6 Gait (FIM): 2 Distance: 100' Walk 10 feet (QC): 4 Walk 10ft-Uneven Surface(QC): 4 Walk 50ft with 2 Turns (QC): 4 Gait Level of Assist: 5 Gait Assistive Device: FWW Wheelchair (FIM): 6 Stairs (FIM): 1 # of Steps: 1 1 Step (curb) (QC): 4 Stairs Level Of Assist: 4 PT Plan Problem List Problem List: Activity Tolerance, Functional Strength Treatment/Plan Treatment Plan: Continue Plan of Care Treatment Plan: Bed Mobility, Education, Functional Activity Mahad, Functional Strength, Group Therapy, Gait, Safety, Therapeutic Exercise, Transfers Treatment Duration: Sep 13, 2017 Frequency: At least 5 of 7 days/Wk (IRF) Estimated Hrs Per Day: 1.5 hours per day Patient and/or Family Agrees t: Yes Safety Risks/Education Patient Education: Gait Training, Correct Positioning, Safety Issues Teaching Recipient: Patient Teaching Methods: Discussion Response to Teaching: Verbalize Understanding Time/GCodes Time In: 1130 Time Out: 1200 Total Billed Treatment Time: 30 Total Billed Treatment 1, WCH (15m) & FA (15m) G Codes Necessary: ALETHEA Hudson MARINE FIREMAN Sep 06, 2017 12:38
--- NOTE | 2017-09-06 14:46 | Occupational Ther Daily Note ---
OT Current Status-Daily Note Subjective Pt seen in room, up in w/c, reported that she didn't feel well - chills, fever. Nursing notified Appearance Looks uncomfortable,but agreeable to OT Mental Status/Objective Functional [place] Measure 0=Not Assessed/NA 4=Minimal Assistance 1=Total Assistance 5=Supervision or Setup 2=Maximal Assistance 6=Modified [place] 3=Moderate Assistance 7=Complete [place] ADL-Treatment Functional [place] Measure 0=Not Assessed/NA 4=Minimal Assistance 1=Total Assistance 5=Supervision or Setup 2=Maximal Assistance 6=Modified [place] 3=Moderate Assistance 7=Complete IndependenceIRFPAI Quality Coding Scale 6 Independent with activity with or without an assistive device 5 Patient requires set up or clean up by helper. Patient completes activity by themselves 4 Supervision or touching assist (CGA). [place] provide cues , steadying assist 3 The helper provides less than half the effort to complete the activity 2 The helper provides more than half the effort to complete the activity 1 Dependent. The helper does all the effort to complete an activity 7 Patient refused to complete or attempt activity 9 The patient did not perform the activity before the current illness or injury 88 Not attempted due to Medical conditions or safety concerns Other Treatment Pt initially wanted to work on standing but, due to pt not feeling well, OT chose to do seated activities. Pt propelled herself part of the way to the gym, for strengthening. She did 14 minutes bilat UE exercise with arm bike set 25- 30W resistance. To strengthen arms for ADLs and transfers and use of prosthetic. Pt took a couple of brief recovery breaks during activity. She returned to room and positioned w/c for toilet transfer. She walked to [facility] over toilet and was able to manage clothing and hygiene. Pt left in care of nursing in bathroom. Education OT Patient Education: Purpose of tx/functional activities Teaching Recipient: Patient Teaching Methods: Discussion Response to Teaching: Verbalize Understanding OT Short Term Goals Short Term Goals Time Frame: Aug 30, 2017 Bathing(FIM): 5 Lower Body Dressing(FIM): 5 Toileting(FIM): 5 Toilet/Commode Transfer(FIM): 5 Additional Short Term Goals: 1-Demonstrate ADL Tasks, 2-Verbalize Understanding , 3-ImproveStrength/Mahad 1=Demonstrate adherence to instructed precautions during ADL tasks. 2=Patient will verbalize/demonstrate understanding of assistive devices/ modifications for ADL. 3=Patient will improve strength/tolerance for activity to enable patient to perform ADL's. OT Instrument And Control Service Person Goals Instrument And Control Service Person Goals Time Frame: Sep 08, 2017 Eating (FIM): 7 Eating (QC): 6 Groomin Oral Hygiene (QC): 6 Bathing(FIM): 6 Shower/Bathe Self (QC): 6 Upper Body Dressing(FIM): 6 Upper Body Dressing (QC): 6 Lower Body Dressing(FIM): 6 Lower Body Dressing (QC): 6 On/Off Footwear (QC): 6 Toileting(FIM): 6 Toileting Hygiene (QC): 6 Toilet/Commode Transfer(FIM): 6 Toilet/Commode Transfer (QC): 6 Shower Transfer(FIM): 5 Additional Goals: 1-Demonstrate ADL Tasks, 2-Verbalize Understanding, 3- ImproveStrength/Mahad 1=Demonstrate adherence to instructed precautions during ADL tasks. 2=Patient will verbalize/demonstrate understanding of assistive devices/ modifications for ADL. 3=Patient will improve strength/tolerance for activity to enable patient to perform ADL's. OT Education/Plan Problem List/Assessment Pt would benefit from skilled OT to increase her independence in basic self care to allow her to safely return home with family after long hospitalization Discharge Recommendations Plan/Recommendations: Continue POC Treatment Plan/Plan of Care Patient would benefit from OT for education, treatment and training to promote independence in ADL's, mobility, safety and/or upper extremity function for ADL' s. Plan of Care: ADL Retraining, Functional Mobility, Group Exercise/Act as Ind ( education, exercise, activity tolerance, socialization, funct mobility), UE Funct Exercise/Act, UE Neuromus Re-Ed/Coord Treatment Duration: Sep 08, 2017 Frequency: At least 5 of 7 days/Wk (IRF) Estimated Hrs Per Day: 1.5 hours per day Agreement: Yes Rehab Potential: Good Time/GCodes Start Time: 14:00 Stop Time: 14:35 Total Time Billed (hr/min): 35 Billed Treatment Time visit, 30 minutes exercise, 5 minutes ADL POLLY HELTON OT Sep 06, 2017 14:46
[2017-09-06 14:52] LABS: BILIRUBIN,URINE NEGATIVE (NEGATIVE); CLARITY,URINE CLEAR; COLOR,URINE YELLOW; GLUCOSE, URINE (UA) NEGATIVE (NEGATIVE); KETONES,URINE NEGATIVE (NEGATIVE); LEUKOCYTE ESTERASE ,URINE 2+ (NEGATIVE); NITRITE,URINE NEGATIVE (NEGATIVE); PH,URINE 6.5 (5-9); PROTEIN,URINE 1+ (NEGATIVE); UROBILINOGEN,URINE NORMAL (NORMAL)
[2017-09-06 14:58] LABS: HEMOGLOBIN 9.8 G/DL (11.5-16.0); MEAN PLATELET VOLUME 9.2 FL (7.4-10.4); RED BLOOD COUNT 3.44 10^6/uL (4.35-5.85); RED CELL DISTRIBUTION WIDTH 17.9 % (10.0-14.5); WHITE BLOOD COUNT 10.5 10^3/uL (4.3-11.0)
[2017-09-06 15:33] LABS: BACTERIA,URINE NEGATIVE /HPF; RBC,URINE 0-2 /HPF
[2017-09-06 17:54] VITALS: BP 123/78
[2017-09-06 20:44] VITALS: BP 105/69
[2017-09-06] MEDS: SIMvastatin 20 MG (ZOCOR) TAB PO SCH (21:38)
[2017-09-07] MEDS: ACETAMINOPHEN 325 MG TABLET PO PRN ×2 (00:11→20:41)
[2017-09-07 05:14] VITALS: BP 96/64
[2017-09-07] MEDS: inSUlin ASPART (NovoLOG) 1 UNIT/0.01 ML (CHARGE PER UNIT) SC SCH ×4 (05:28→21:27)
[2017-09-07 06:16] LABS: CREATININE SERUM 2.47 MG/DL (0.60-1.30); POTASSIUM 3.7 MMOL/L (3.6-5.0)
[2017-09-07] MEDS: CALCIUM ACETATE 667 MG CAP (PHOSLO) PO SCH ×3 (06:27→16:04)
--- NOTE | 2017-09-07 07:52 | Progress Note (SOAP) ---
Subjective Time Seen by Provider: 07:40 Subjective/Events-last exam Patient states she's not feeling well today. Temperature 100. Waiting for urine culture and sensitivity. Chest x-ray ordered Objective Exam Vital Signs Date Time Temp Pulse Resp B/P (MAP) Pulse Ox O2 Delivery O2 Flow Rate FiO2 09/07/17 06:57 101.0 92 Room Air 09/07/17 05:14 98.3 96 19 96/64 (75) 91 Room Air 09/06/17 23:56 100.2 09/06/17 21:00 Room Air 09/06/17 20:44 94 105/69 (81) 09/06/17 17:54 100.0 90 20 123/78 (93) 93 Room Air 09/06/17 10:55 Room Air I & O 09/07/17 07:00 Intake Total 1550 ml Output Total 1800 ml Balance -250 ml Capillary Refill : General Appearance: No Apparent Distress, WD/WN HEENT: Normal ENT Inspection Neck: Full Range of Motion Respiratory: Lungs Clear, No Accessory Muscle Use, No Respiratory Distress Results Lab Laboratory Tests 09/06/17 14:50 09/07/17 05:10 Laboratory Tests 09/06/17 11:28: Glucometer 224H 09/06/17 14:35: Urine Color YELLOW, Urine Clarity CLEAR, Urine pH 6.5, Urine Specific [place] 1.010L, Urine Protein 1+H, Urine Glucose (UA) NEGATIVE, Urine Ketones NEGATIVE, Urine Nitrite NEGATIVE, Urine Bilirubin NEGATIVE, Urine Urobilinogen NORMAL, Urine Leukocyte Esterase 2+H, Urine RBC (Auto) 2+H, Urine RBC 0-2, Urine WBC 5- 10H, Urine Squamous Epithelial Cells 2-5, Urine Renal Epithelial Cells NONE, Urine Crystals NONE, Urine Bacteria NEGATIVE, Urine Casts NONE, Urine Mucus NEGATIVE, Urine Culture Indicated YES 09/06/17 14:50: White Blood Count 10.5, Red Blood Count 3.44L, Hemoglobin 9.8L, Hematocrit 31L, Mean Corpuscular Volume 89, Mean Corpuscular Hemoglobin 29, Mean Corpuscular Hemoglobin Concent 32, Red Cell Distribution Width 17.9H, Platelet Count 220, Mean Platelet Volume 9.2 09/06/17 15:33: Glucometer 102 09/06/17 21:36: Glucometer 125H 09/07/17 05:10: Sodium Level 136, Potassium Level 3.7, Chloride Level 102, Carbon Dioxide Level 24, Anion Gap 10, Blood Urea Nitrogen 46H, Creatinine 2.47H, Estimat Glomerular Filtration Rate 20, BUN/Creatinine Ratio 19, Glucose Level 101, Calcium Level 8.0L 09/07/17 05:11: Glucometer 112H Microbiology 09/06/17 Urine Culture - Preliminary, Resulted Sent To [facility] Assessment/Plan Assessment/Plan Assess & Plan/Chief Complaint Debility. Acute on chronic renal failure. Atrial fibrillation. Diabetes. BKA left. Sleep apnea obstructive. . 08/25/17. Debility. Acute on chronic renal failure. Atrial fibrillation. Diabetes. BKA. Obstructive sleep apnea. Patient feels of foot is slightly swollen Patient working hard yesterday. . 08/28/17. Debility. Acute and chronic renal failure. Atrial fibrillation. Diabetes Patient gained 5 pounds.. . 08/31/17 debility. Chronic renal failure. Atrial fibrillation. Diabetes Patient lost a little weight. . 09/01/17. Debility. Acute and chronic renal failure. Atrial fibrillation. Diabetes. Patient was 7 pounds. Patient put on Demadex by renal specialist. . 09/04/17. Debility. Chronic renal failure. Atrial fibrillation. Diabetes. Patient lost another 2 pounds. . 09/05/17. Debility. Chronic renal failure. Atrial fibrillation history. Diabetes. Patient lost another 3 pounds. Patient improving. . . Debility. Chronic renal failure. Diabetes. Patient states she didn't lose any weight today. . 09/07/17. Debility. Chronic renal failure. UTI being evaluated. Diabetes. Patient states she doesn't feel well today Clinical Quality Measures DVT/VTE Risk/Contraindication: Risk Factor Score Per Nursin RFS Level Per Nursing on Admit: 4+=Very High URSULA RENEE DO Sep 07, 2017 07:52
[2017-09-07 08:33] LABS: BASOPHILS # (AUTO) 0.1 10^3/uL (0.0-0.1); BASOPHILS % (AUTO) 1 % (0-10); EOSINOPHILS % (AUTO) 0 % (0-10); HEMATOCRIT 29 % (35-52); LYMPHOCYTES # (AUTO) 0.7 X 10^3 (1.0-4.0); LYMPHOCYTES % (AUTO) 7 % (12-44); MEAN CORPUSCULAR HEMOGLOBIN 28 PG (25-34); MEAN CORPUSCULAR HGB CONC 32 G/DL (32-36); MEAN CORPUSCULAR VOLUME 90 FL (80-99); MEAN PLATELET VOLUME 9.5 FL (7.4-10.4); MONOCYTES # (AUTO) 0.9 X 10^3 (0.0-1.0); MONOCYTES % (AUTO) 10 % (0-12); NEUTROPHILS # (AUTO) 7.5 X 10^3 (1.8-7.8); NEUTROPHILS % (AUTO) 82 % (42-75); PLATELET COUNT 189 10^3/uL (130-400); RED BLOOD COUNT 3.18 10^6/uL (4.35-5.85); RED CELL DISTRIBUTION WIDTH 18.2 % (10.0-14.5); WHITE BLOOD COUNT 9.2 10^3/uL (4.3-11.0)
--- NOTE | 2017-09-07 08:53 | Occupational Ther Daily Note ---
OT Current Status-Daily Note Subjective Pt. is up in chair and telling Nurse that she would like to leave when this therapist enters room. Appearance Pt. and nursing report that she has had an accident in underwear, and pt. is going to bathroom to change and clean up. Mental Status/Objective Patient Orientation: Person, Place Functional [place] Measure 0=Not Assessed/NA 4=Minimal Assistance 1=Total Assistance 5=Supervision or Setup 2=Maximal Assistance 6=Modified [place] 3=Moderate Assistance 7=Complete [place] ADL-Treatment Functional [place] Measure 0=Not Assessed/NA 4=Minimal Assistance 1=Total Assistance 5=Supervision or Setup 2=Maximal Assistance 6=Modified [place] 3=Moderate Assistance 7=Complete IndependenceIRFPAI Quality Coding Scale 6 Independent with activity with or without an assistive device 5 Patient requires set up or clean up by helper. Patient completes activity by themselves 4 Supervision or touching assist (CGA). [place] provide cues , steadying assist 3 The helper provides less than half the effort to complete the activity 2 The helper provides more than half the effort to complete the activity 1 Dependent. The helper does all the effort to complete an activity 7 Patient refused to complete or attempt activity 9 The patient did not perform the activity before the current illness or injury 88 Not attempted due to Medical conditions or safety concerns Lower Body Dressing (FIM): 4 (Min assist today to pull up underwear over hips.) Lower Body Dressing (QC): 4 Toileting (FIM): 2 (Pt. required max assist this date for rear srinivasa care after BM. States that she feels too weak to do it on her own.) Toileting Hygiene (QC): 2 Transfers (B, C, W/C) (FIM): 4 Toilet/Commode Transfer (FIM): 4 Toilet Transfer (QC): 4 Other Treatment Pt. states that she has a fever and is upset. Nursing is fully aware, as is Pt. is stating that she would like to leave today, even though nurse reports that pt. can stay another night to monitor pt. OT encourages pt. to shower while she is in the bathroom, as she has had a BM accident. Pt. states that she does not feel good, and does not want to. States that she will use wipes. However, is unable to clean herself up due to feeling poorly, so OT does this for her. Pt. is encouraged and states that she needs to call her to see what he wants to do, as he is her ride. Pt. does call, and then calls OT back into room. States that her spouse will not come today, but will be here tomorrow. OT asks if she would like to come and work with OT. Pt. declines. At this time, x-ray came to take pt. for chest x-ray. Will continue to check back on pt. as she is feeling better. Education OT Patient Education: Correct positioning, Modified ADL techniques, Progress toward Goal/Update tx plan, Purpose of tx/functional activities, Reviewed precautions, Rehab process Teaching Recipient: Patient Teaching Methods: Demonstration, Discussion Response to Teaching: Verbalize Understanding, Return Demonstration OT Short Term Goals Short Term Goals Time Frame: Aug 30, 2017 Bathing(FIM): 5 Lower Body Dressing(FIM): 5 Toileting(FIM): 5 Toilet/Commode Transfer(FIM): 5 Additional Short Term Goals: 1-Demonstrate ADL Tasks, 2-Verbalize Understanding , 3-ImproveStrength/Mahad 1=Demonstrate adherence to instructed precautions during ADL tasks. 2=Patient will verbalize/demonstrate understanding of assistive devices/ modifications for ADL. 3=Patient will improve strength/tolerance for activity to enable patient to perform ADL's. OT Medical Clerk Goals Medical Clerk Goals Time Frame: Sep 08, 2017 Eating (FIM): 7 Eating (QC): 6 Groomin Oral Hygiene (QC): 6 Bathing(FIM): 6 Shower/Bathe Self (QC): 6 Upper Body Dressing(FIM): 6 Upper Body Dressing (QC): 6 Lower Body Dressing(FIM): 6 Lower Body Dressing (QC): 6 On/Off Footwear (QC): 6 Toileting(FIM): 6 Toileting Hygiene (QC): 6 Toilet/Commode Transfer(FIM): 6 Toilet/Commode Transfer (QC): 6 Shower Transfer(FIM): 5 Additional Goals: 1-Demonstrate ADL Tasks, 2-Verbalize Understanding, 3- ImproveStrength/Mahad 1=Demonstrate adherence to instructed precautions during ADL tasks. 2=Patient will verbalize/demonstrate understanding of assistive devices/ modifications for ADL. 3=Patient will improve strength/tolerance for activity to enable patient to perform ADL's. OT Education/Plan Problem List/Assessment Assessment: Decreased Activ Tolerance, Decreased UE Strength, Dependent Transfers, Impaired Funct Balance, Impaired I ADL's, Impaired Self-Care Skills Pt would benefit from skilled OT to increase her independence in basic self care to allow her to safely return home with family after long hospitalization Discharge Recommendations Plan/Recommendations: Continue POC Therapy D/C Recommendations: Home w/ Family Support, Occupational Therapy Home Care Treatment Plan/Plan of Care Treatment,Training & Education: Yes Patient would benefit from OT for education, treatment and training to promote independence in ADL's, mobility, safety and/or upper extremity function for ADL' s. Plan of Care: ADL Retraining, Functional Mobility, Group Exercise/Act as Ind ( education, exercise, activity tolerance, socialization, funct mobility), UE Funct Exercise/Act, UE Neuromus Re-Ed/Coord Treatment Duration: Sep 08, 2017 Frequency: At least 5 of 7 days/Wk (IRF) Estimated Hrs Per Day: 1.5 hours per day Agreement: Yes Rehab Potential: Good Time/GCodes Start Time: 08:10 Stop Time: 08:30 Total Time Billed (hr/min): 20 Billed Treatment Time 1, ADL x 20minutes ALEXIS PAVON OT Sep 07, 2017 08:53
--- NOTE | 2017-09-07 08:58 | PM & R (SOAP) Progress Note ---
Subjective This was a face to face visit with the patient. Date Seen by Provider: Sep 07, 2017 Time Seen by Provider: 08:00 Subjective/Events-last exam Patient was seen in her room this AM Patient concerned about her fever discussed with RN and DR Christina UC&S stillwaiting for results to come back from [facility] Will resume Keflex empirically and recheck CBC and Check CXR RN report fever >101 last night,Patient was scheduled for discharge today but that will most likely be postponed til tomorrow. Review of Systems General: Chills, Malaise vaginal dryness Objective Physician Exam Last Set of Vital Signs Vital Signs Date Time Temp Pulse Resp B/P (MAP) Pulse Ox O2 Delivery O2 Flow Rate FiO2 09/07/17 06:57 101.0 92 Room Air 09/07/17 05:14 96 19 96/64 (75) Capillary Refill : I&O Intake and Output 09/07/17 00:00 Intake Total 1300 ml Output Total 2050 ml Balance -750 ml Intake Oral 1300 ml Output Urine Total 2050 ml # Bowel Movements 1 General: Alert, Oriented X3, Cooperative, No Acute Distress HEENT: Atraumatic, PERRLA, EOMI, Mucous Memb Moist/[place] Neck: Supple, No JVD Lungs: Clear to Auscultation Heart: Regular Rate Abdomen: Normal Bowel Sounds, Soft, No Tenderness Extremities: Other (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 Mild rt cellulitis of the leg) Neuro: Other (generalized weakness) Results Lab Data Laboratory Tests 09/04/17 11:06: Glucometer 120H 09/04/17 11:15: Sodium Level 137, Potassium Level 4.1, Chloride Level 105, Carbon Dioxide Level 20L, Anion Gap 12, Blood Urea Nitrogen 49H, Creatinine 2.39H, Estimat Glomerular Filtration Rate 21, BUN/Creatinine Ratio 21, Glucose Level 111H, Calcium Level 7.8L 09/04/17 16:07: Glucometer 105 09/04/17 20:29: Glucometer 154H 09/05/17 04:51: Glucometer 79 09/05/17 10:58: Glucometer 148H 09/05/17 16:11: Glucometer 123H 09/05/17 20:26: Glucometer 203H 09/06/17 05:43: Glucometer 113H 09/06/17 11:28: Glucometer 224H 09/06/17 14:35: Urine Color YELLOW, Urine Clarity CLEAR, Urine pH 6.5, Urine Specific [place] 1.010L, Urine Protein 1+H, Urine Glucose (UA) NEGATIVE, Urine Ketones NEGATIVE, Urine Nitrite NEGATIVE, Urine Bilirubin NEGATIVE, Urine Urobilinogen NORMAL, Urine Leukocyte Esterase 2+H, Urine RBC (Auto) 2+H, Urine RBC 0-2, Urine WBC 5- 10H, Urine Squamous Epithelial Cells 2-5, Urine Renal Epithelial Cells NONE, Urine Crystals NONE, Urine Bacteria NEGATIVE, Urine Casts NONE, Urine Mucus NEGATIVE, Urine Culture Indicated YES 09/06/17 14:50: White Blood Count 10.5, Red Blood Count 3.44L, Hemoglobin 9.8L, Hematocrit 31L, Mean Corpuscular Volume 89, Mean Corpuscular Hemoglobin 29, Mean Corpuscular Hemoglobin Concent 32, Red Cell Distribution Width 17.9H, Platelet Count 220, Mean Platelet Volume 9.2 09/06/17 15:33: Glucometer 102 09/06/17 21:36: Glucometer 125H 09/07/17 05:10: White Blood Count 9.2, Red Blood Count 3.18L, Hemoglobin 9.0L, Hematocrit 29L, Mean Corpuscular Volume 90, Mean Corpuscular Hemoglobin 28, Mean Corpuscular Hemoglobin Concent 32, Red Cell Distribution Width 18.2H, Platelet Count 189, Mean Platelet Volume 9.5, Neutrophils (%) (Auto) 82H, Lymphocytes (%) (Auto) 7L , Monocytes (%) (Auto) 10, Eosinophils (%) (Auto) 0, Basophils (%) (Auto) 1, Neutrophils # (Auto) 7.5, Lymphocytes # (Auto) 0.7L, Monocytes # (Auto) 0.9, Eosinophils # (Auto) 0.0, Basophils # (Auto) 0.1, Sodium Level 136, Potassium Level 3.7, Chloride Level 102, Carbon Dioxide Level 24, Anion Gap 10, Blood Urea Nitrogen 46H, Creatinine 2.47H, Estimat Glomerular Filtration Rate 20, BUN/ Creatinine Ratio 19, Glucose Level 101, Calcium Level 8.0L 09/07/17 05:11: Glucometer 112H Microbiology 09/06/17 Urine Culture - Preliminary, Resulted Sent To [facility] Assessment/Plan Assessment and Plan General debil secondary to acute on chronic KD Reanl Physician has adjusted meds Current BUN/CR et al reviewed FUO probable recurrent UTI Kelflex resumed empirically until US&S rsults get back from [facility] Lab Fluid overload diuresing Vaginal dryness no furhter complainst at this time Flex contracture Left BKA Collateral Clerk from [facility] has adjusted prosthesis to accommodate Type 2 DM E COLI UTI treated check for reoccurence as per above Residual limb scabbing improved with topical RX YUDY HTN controlled A FIB controlled Acute on chronic diastolic dysfunction compensated with meds Tobaccoism abstaining Plan Continue PT/Ot Discharge tomorrow most likely Resume Keflex empirically for now while awaiting UC&S results Check CXR and repeat CBC as per above See orders. (1) Renal failure (ARF), acute on chronic Qualifiers: Qualified Codes: N17.9 - Acute kidney failure, unspecified; N18.4 - Chronic kidney disease, stage 4 (severe) Status: Acute Co-Morbidities that are continuing to impact the rehab process: (include details ) IRMA ESPINOZA MD Sep 07, 2017 08:58
[2017-09-07 09:12] LABS: BAND NEUTROPHILS 1 %
[2017-09-07 09:13] LABS: BASOPHILS % (MANUAL) 0 %; EOSINOPHILS % (MANUAL) 0 %; LYMPHOCYTES % (MANUAL) 7 %; MONOCYTES % (MANUAL) 9 %; NEUTROPHILS % (MANUAL) 83 %
[2017-09-07 09:16] LABS: ELLIPT/OVALOCYTES SLIGHT; POIKILOCYTOSIS SLIGHT
[2017-09-07 09:18] LABS: ANISOCYTOSIS SLIGHT
--- NOTE | 2017-09-07 09:42 | Occ Therapy Progress Note ---
Therapy Progress Note Pt. back in room, back in bed. Encouraged pt. to work with OT. Pt. states that she does not feel well. Declines all attempts. Will notify nursing. 1, visit [id number] ALEXIS PAVON OT Sep 07, 2017 09:42
[2017-09-07] MEDS: GABAPENTIN 300 MG (NEURONTIN) CAP PO SCH ×3 (09:54→20:40)
[2017-09-07] MEDS: AMIODARONE 200 MG (CORDARONE) TAB PO SCH (09:54)
[2017-09-07] MEDS: APIXABAN 5 MG (ELIQUIS) TABLET PO SCH ×2 (09:54→20:40)
[2017-09-07] MEDS: CLOPIDOGREL 75 MG (PLAVIX) TABLET PO SCH (09:54)
[2017-09-07] MEDS: CARVEDILOL 3.125 MG (COREG) TABLET PO SCH ×2 (09:54→20:41)
[2017-09-07] MEDS: TORSEMIDE 20 MG (DEMADEX) TAB PO SCH ×2 (09:54→20:40)
[2017-09-07] MEDS: DULoxetine 30 MG (CYMBALTA) CAP PO SCH (09:54)
[2017-09-07] MEDS: CEPHALEXIN 250 MG (KEFLEX) CAP PO SCH ×2 (09:54→12:57)
[2017-09-07] MEDS: A & D OINT 60 GM TUBE TOP SCH (09:55)
[2017-09-07] MEDS: inSUlin DETERMIR 1 UNIT/0.01 ML (LEVEMIR) CHARGE PER UNIT SQ SCH ×2 (09:56→21:27)
[2017-09-07] MEDS: NYSTATIN CREAM (MYCOSTATIN) 30 GM TUBE TP SCH ×2 (09:56→20:41)
--- NOTE | 2017-09-07 10:04 | Diagnostic Imaging Report ---
INDICATION: Shortness of breath and fever. TIME OF EXAM: 8:59 AM COMPARISON: No prior studies are available for comparison. FINDINGS: There is airspace consolidation in the right upper lobe suggestive of pneumonia. There may be some milder infiltrate in the left upper lobe. There also is some mild increased density in the right base suggestive of pneumonia. No effusion is seen. There is no pneumothorax. IMPRESSION: Bilateral pulmonary interest most consolidated in the right upper lobe suggestive of pneumonia. Followup after course of therapy is recommended to confirm clearing. Dictated by: Dictated on workstation # [id number]
--- NOTE | 2017-09-07 10:23 | Physical Therapy Progress Note ---
Therapy Progress Note TRANSPLANT WORKER attempted to see pt at 1000 but pt refused, reports feeling sick. Pt running a fever and feels nauseated. Per Xray, pt is showing possible pneumonia. TRANSPLANT WORKER will check on pt later. 1 visit ([id number]), no tx rendered ALETHEA OATES PTA Sep 07, 2017 10:23
--- NOTE | 2017-09-07 13:55 | Physical Therapy Daily Note ---
PT Daily Note-Current Subjective Pt sitting in [facility] on way to restroom with Nurse upon arrival. Pt agrees to limited tx so PT & OT co-treat due to increased skilled care, decreased activity tolerance & medical status. Pain Location: No Pain Reported Mental Status Patient Orientation: Person, Place, Time, Situation Transfers Functional Adams Measure 0=Not Assessed/NA 4=Minimal Assistance 1=Total Assistance 5=Supervision or Setup 2=Maximal Assistance 6=Modified Adams 3=Moderate Assistance 7=Complete IndependenceIRFPAI Quality Coding Scale 6 Independent with activity with or without an assistive device 5 Patient requires set up or clean up by helper. Patient completes activity by themselves 4 Supervision or touching assist (CGA). [place] provide cues , steadying assist 3 The helper provides less than half the effort to complete the activity 2 The helper provides more than half the effort to complete the activity 1 Dependent. The helper does all the effort to complete an activity 7 Patient refused to complete or attempt activity 9 The patient did not perform the activity before the current illness or injury 88 Not attempted due to Medical conditions or safety concerns Scootin Supine to/from Sit: 6 Sit to/from Stand: 6 Sit to Lying (QC): 6 Pt takes extended time to transfer due to fatigue today. Weight Bearing Right Lower Extremity: Right Weight Bearing/Tolerated Left Lower Extremity: Left Weight Bearing/Tolerated Gait Training Does the Patient Walk?: No and Walking Goal IS indicated Distance (FIM): 0=does not occure Wheelchair Training Does the Pt Use a Wheelchair?: Yes Wheelchair Distance: 1=up to 49 ft Distance: 25' Wheelchair Level of Assist: 6 Type of Wheelchair: Manual Exercises Supine Ex: Ankle pumps, Quad Set, Glut sets, Heel Slides, Straight leg raise Treatments Pt toilets then transfers back to [facility]. Pt takes short rest break in [facility] before propelling to bed & transfer to EOB. Pt transfers to Supine in bed then completes Supine Ex with several rest breaks. Pt rests at end of tx with all ends met including call light & phone next to pt. Assessment Current Status: Fair Progress Pt took increased time to complete tasks due to increase SOA and fatigue, requiring longer recovery breaks. Pt was able to complete toilet transfers and toileting with mod I using w/c, grabbars and BSC. Pt was able to complete tasks. 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 Goals [facility] Goals PT [facility] Goals Time Frame: Sep 13, 2017 Transfers (B,C,W/C) (FIM): 6 Sit to Lying (QC): 6 Lying-Sitting on Side/Bed(QC): 6 Sit to Stand (QC): 6 Rollin Roll Left to Right (QC): 6 Chair/Vfh-wq-Btfcs Xfer(QC): 6 Car Transfer (QC): 6 Gait (FIM): 2 Distance: 100' Walk 10 feet (QC): 4 Walk 10ft-Uneven Surface(QC): 4 Walk 50ft with 2 Turns (QC): 4 Gait Level of Assist: 5 Gait Assistive Device: FWW Wheelchair (FIM): 6 Stairs (FIM): 1 # of Steps: 1 1 Step (curb) (QC): 4 Stairs Level Of Assist: 4 PT Plan Problem List Problem List: Activity Tolerance, Functional Strength, Gait Treatment/Plan Treatment Plan: Continue Plan of Care Treatment Plan: Bed Mobility, Education, Functional Activity Mahad, Functional Strength, Group Therapy, Gait, Safety, Therapeutic Exercise, Transfers Treatment Duration: Sep 13, 2017 Frequency: At least 5 of 7 days/Wk (IRF) Estimated Hrs Per Day: 1.5 hours per day Patient and/or Family Agrees t: Yes Safety Risks/Education Patient Education: Gait Training, Transfer Techniques, Correct Positioning, Safety Issues Teaching Recipient: Patient Teaching Methods: Discussion Response to Teaching: Verbalize Understanding Time/GCodes Time In: 1300 Time Out: 1350 Total Billed Treatment 1, EX (20m) & FA x2 (30m) G Codes Necessary: ALETHEA Hudson M[employer] SERVICE SCHEDULER Sep 07, 2017 13:55
--- NOTE | 2017-09-07 13:57 | Occupational Ther Daily Note ---
OT Current Status-Daily Note Subjective Pt alert, sitting in w/c. Pt agrees to therapy. Pt very fatigue and SOA with activity. Mental Status/Objective Patient Orientation: Person, Place, Time, Situation Functional Johnson Measure 0=Not Assessed/NA 4=Minimal Assistance 1=Total Assistance 5=Supervision or Setup 2=Maximal Assistance 6=Modified Johnson 3=Moderate Assistance 7=Complete Johnson ADL-Treatment OT/PT co-treated due to pt requiring increased skilled care, decreased activity tolerance and medical status. PT worked on transfers and LE exercises. OT worked on toileting, w/c mobility and UE exercises during functional tasks. Pt took increased time to complete tasks due to increase SOA and fatigue, requiring longer recovery breaks. Pt was able to complete toilet transfers and toileting with mod I using w/c, grabbars and BSC. Pt was able to complete tasks. After therapy, pt lying in bed with call light/phone in reach. All needs met in room. Functional Johnson Measure 0=Not Assessed/NA 4=Minimal Assistance 1=Total Assistance 5=Supervision or Setup 2=Maximal Assistance 6=Modified Johnson 3=Moderate Assistance 7=Complete IndependenceIRFPAI Quality Coding Scale 6 Independent with activity with or without an assistive device 5 Patient requires set up or clean up by helper. Patient completes activity by themselves 4 Supervision or touching assist (CGA). [place] provide cues , steadying assist 3 The helper provides less than half the effort to complete the activity 2 The helper provides more than half the effort to complete the activity 1 Dependent. The helper does all the effort to complete an activity 7 Patient refused to complete or attempt activity 9 The patient did not perform the activity before the current illness or injury 88 Not attempted due to Medical conditions or safety concerns Toileting (FIM): 6 Toileting Hygiene (QC): 6 Toilet/Commode Transfer (FIM): 6 Toilet Transfer (QC): 6 OT Short Term Goals Short Term Goals Time Frame: Aug 30, 2017 Bathing(FIM): 5 Lower Body Dressing(FIM): 5 Toileting(FIM): 5 Toilet/Commode Transfer(FIM): 5 Additional Short Term Goals: 1-Demonstrate ADL Tasks, 2-Verbalize Understanding , 3-ImproveStrength/Mahad 1=Demonstrate adherence to instructed precautions during ADL tasks. 2=Patient will verbalize/demonstrate understanding of assistive devices/ modifications for ADL. 3=Patient will improve strength/tolerance for activity to enable patient to perform ADL's. OT [facility] Site Coordinator Goals [facility] Goals Time Frame: Sep 08, 2017 Eating (FIM): 7 Eating (QC): 6 Groomin Oral Hygiene (QC): 6 Bathing(FIM): 6 Shower/Bathe Self (QC): 6 Upper Body Dressing(FIM): 6 Upper Body Dressing (QC): 6 Lower Body Dressing(FIM): 6 Lower Body Dressing (QC): 6 On/Off Footwear (QC): 6 Toileting(FIM): 6 Toileting Hygiene (QC): 6 Toilet/Commode Transfer(FIM): 6 Toilet/Commode Transfer (QC): 6 Shower Transfer(FIM): 5 Additional Goals: 1-Demonstrate ADL Tasks, 2-Verbalize Understanding, 3- ImproveStrength/Mahad 1=Demonstrate adherence to instructed precautions during ADL tasks. 2=Patient will verbalize/demonstrate understanding of assistive devices/ modifications for ADL. 3=Patient will improve strength/tolerance for activity to enable patient to perform ADL's. OT Education/Plan Problem List/Assessment Pt would benefit from skilled OT to increase her independence in basic self care to allow her to safely return home with family after long hospitalization Discharge Recommendations Plan/Recommendations: Continue POC Treatment Plan/Plan of Care Patient would benefit from OT for education, treatment and training to promote independence in ADL's, mobility, safety and/or upper extremity function for ADL' s. Plan of Care: ADL Retraining, Functional Mobility, Group Exercise/Act as Ind ( education, exercise, activity tolerance, socialization, funct mobility), UE Funct Exercise/Act, UE Neuromus Re-Ed/Coord Treatment Duration: Sep 08, 2017 Frequency: At least 5 of 7 days/Wk (IRF) Estimated Hrs Per Day: 1.5 hours per day Agreement: Yes Rehab Potential: Good Time/GCodes Start Time: 13:00 Stop Time: 13:50 Total Time Billed (hr/min): 50 Billed Treatment Time 1 visit-FA 3 (50 min) ANA HWANG Sep 07, 2017 13:57
[2017-09-07 18:00] VITALS: BP 101/66
[2017-09-07] MEDS: ONDANSETRON 4 MG/2 ML (SDV) Z0FRAN IVP PRN (18:11)
[2017-09-07] MEDS: RT-ALBUTEROL SULF 2.5 MG/3 ML PRE-MIX VIAL INH SCH (18:36)
[2017-09-07] MEDS ORDERED: VANCOMYCIN INJECTION 2,000 MG in NS IV 500 ML 500 ML IV NR (20:00)
[2017-09-07] MEDS ORDERED: PIPERACILLIN/TAZOBACTAM 3.375 GM in D5W 100 ML IVPB 100 ML IV NR (20:05)
[2017-09-07 20:31] LABS: ABG OXYGEN SATURATION 95 % (94-100); ABG PCO2 41 MMHG (35-45); ABG PH 7.37 (7.37-7.43); ABG PO2 84 MMHG (79-93); ABG TCO2 24.3 MMOL/L (21.0-31.0); ALLENS TEST YES-POS; INSPIRED O2 3L; PATIENT TEMP 101.6; VENTILATOR NO
[2017-09-07 20:38] LABS: HEMOGLOBIN 8.9 G/DL (11.5-16.0); MEAN PLATELET VOLUME 9.3 FL (7.4-10.4); RED BLOOD COUNT 3.13 10^6/uL (4.35-5.85); RED CELL DISTRIBUTION WIDTH 18.1 % (10.0-14.5); WHITE BLOOD COUNT 14.8 10^3/uL (4.3-11.0)
[2017-09-07] MEDS: SIMvastatin 20 MG (ZOCOR) TAB PO SCH (20:40)
--- NOTE | 2017-09-07 20:53 | Diagnostic Imaging Report ---
Clinical indication: Patient with increased shortness of breath. Exam: Chest x-ray PA and lateral views. Comparisons: Chest x-ray dated 09/07/2017. Findings: Again seen moderate amount of airspace consolidation and groundglass opacification involving the right lung with some sparing of the right lung apex. There is also airspace opacification involving left upper lobe and subtle areas involving the left lung base region. There is blunting of the right costophrenic angle which may be related to pleural effusion. There is no left pleural effusion. There is no pneumothorax. Stable cardiomegaly. There is mild pulmonary vasculature congestion seen. Impression: 1: Stable bilateral lung infiltrates (right side more than the left). This may be related to infectious or inflammatory process. 2: Cardiomegaly with mild pulmonary vascular congestion. 3: There is a small right pleural effusion. Dictated by: Dictated on workstation # [id number]
[2017-09-08] MEDS: PIPERACILLIN/TAZOBACTAM 3.375 GM in D5W 100 ML IVPB 100 ML IV SCH ×3 (02:11→17:01)
[2017-09-08 05:33] VITALS: BP 91/63
[2017-09-08] MEDS: inSUlin ASPART (NovoLOG) 1 UNIT/0.01 ML (CHARGE PER UNIT) SC SCH ×4 (05:39→21:00)
[2017-09-08] MEDS: RT-ALBUTEROL SULF 2.5 MG/3 ML PRE-MIX VIAL INH SCH ×4 (06:32→19:19)
[2017-09-08 06:40] LABS: BASOPHILS % (AUTO) 0 % (0-10); EOSINOPHILS % (AUTO) 0 % (0-10); HEMATOCRIT 27 % (35-52); HEMOGLOBIN 8.4 G/DL (11.5-16.0); LYMPHOCYTES # (AUTO) 0.4 X 10^3 (1.0-4.0); LYMPHOCYTES % (AUTO) 4 % (12-44); MEAN CORPUSCULAR HEMOGLOBIN 29 PG (25-34); MEAN CORPUSCULAR HGB CONC 32 G/DL (32-36); MEAN CORPUSCULAR VOLUME 90 FL (80-99); MEAN PLATELET VOLUME 9.1 FL (7.4-10.4); MONOCYTES # (AUTO) 0.8 X 10^3 (0.0-1.0); MONOCYTES % (AUTO) 8 % (0-12); NEUTROPHILS # (AUTO) 9.5 X 10^3 (1.8-7.8); NEUTROPHILS % (AUTO) 88 % (42-75); PLATELET COUNT 153 10^3/uL (130-400); RED BLOOD COUNT 2.95 10^6/uL (4.35-5.85); RED CELL DISTRIBUTION WIDTH 17.8 % (10.0-14.5); WHITE BLOOD COUNT 10.8 10^3/uL (4.3-11.0)
[2017-09-08] MEDS: CALCIUM ACETATE 667 MG CAP (PHOSLO) PO SCH ×3 (06:43→16:57)
--- NOTE | 2017-09-08 06:47 | Pulmonary Consultation ---
History of Present Illness History of Present Illness Date of Consultation 09/08/17 06:41 Time Seen by Provider: 06:42 Date of Admission History of Present Illness 56yo morbidly obese patient with PMH of IDDM II, Afib, PVD, s/p left BKA, CKD transferred to our rehab unit for PT/OT services. over the last 1-2 days patient has had increased dyspnea and fever. CXR shows bilateral infiltrations. Tm is 101.6. Dr. Christina is consulting me for pulmonary management. RN called me last night secondary to consult. LA is normal. I ordered shah cultures and changed abx to vanco zosyn. Today's labs along with repeat LA are pending. Pt has had similar previous episodes. Allergies and Home Medications Allergies Coded Allergies: tetanus toxoid, adsorbed (Verified Adverse Reaction, Intermediate, 03/09/16 ) Home Medications Acetaminophen 325 Mg Tablet, 650 MG PO Q4H PRN for PAIN, (Reported) TAKES 2 (325MG) TABLETS Alprazolam 0.5 Mg Tablet, 0.5 MG PO TID PRN for ANXIETY Prescribed by: IRMA ESPINOZA on 04/08/16 1033 Aspirin 81 Mg Tablet.dr, 81 MG PO DAILY Prescribed by: IRMA ESPINOZA on 04/08/16 1033 Calcium Carbonate 300 Mg Tab.chew, 750 MG PO BID, (Reported) Citalopram Hydrobromide 20 Mg Tablet, 20 MG PO DAILY, (Reported) Clopidogrel Bisulfate 75 Mg Tablet, 75 MG PO DAILY Prescribed by: IRMA ESPINOZA on 04/08/16 1033 Diltiazem HCl 120 Mg Cap.er.24h, 120 MG PO DAILY Prescribed by: IRMA ESPINOZA on 04/08/16 1033 Duloxetine HCl 30 Mg Capsule.dr, 30 MG PO DAILY, (Reported) Gabapentin 300 Mg Capsule, 600 MG PO TID, (Reported) TAKES 2 (300MG) CAPSULES Hypromellose 15 Ml Drops, 1-2 DROPS OU Q4H PRN for DRY EYES, (Reported) Insulin Determir 1,000 Units/10 Ml Soln, 10 UNITS SQ 2100, (Reported) Insulin Lispro 100 Unit/1 Ml Vial, SQ ACHS, (Reported) Lubiprostone 24 Mcg Capsule, 24 MCG PO BID, (Reported) Oxycodone HCl/Acetaminophen 1 Each Tablet, 1 TAB PO Q4H PRN for SEVERE PAIN Prescribed by: IRMA ESPINOZA on 04/08/16 1033 Phenyleph/Mineral Oil/Petrolat 28 Gm Oint.appl, RC UD PRN for HEMORRHOIDS, ( Reported) Pravastatin Sodium 20 Mg Tablet, 20 MG PO HS, (Reported) Sennosides 8.6 Mg Tablet, 2 TAB PO BID, (Reported) Silver Sulfadiazine 20 Gm Cream..g., 0 GM TOP DAILY Prescribed by: IRMA ESPINOZA on 04/08/16 1033 Zinc Oxide 28 Gm Oint, 0 GM TOP NEEDED PRN for wound care Prescribed by: IRMA ESPINOZA on 04/08/16 1033 Past Iwkokou-Ztafoz-Fkojlk Hx Patient Social History Smoking Status: Current Everyday Smoker Type Used: Cigarettes Recent Foreign Travel: No Contact w/Someone Who Travel: No Recent Infectious Disease Expo: No Immunizations Up To Date Date of Pneumonia Vaccine: Nov 20, 2016 Date of Influenza Vaccine: Feb 20, 2016 Past Medical History Section, Orthopedic, Tonsillectomy Respiratory: No Cardiac: Yes (ANASTASIA with Cardioversion on 08/01/17) Atrial Fibrillation : No Genitourinary: Yes (Kidney disease; UTI) Amputee Endocrine: Yes HEENT: Yes (Retinopathy) Cataract Cancer: No Anxiety, Depression Integumentary: Yes (Cellulitis) Review of Systems Time Seen by Provider: 07:08 Constitutional: Fever, Chills, Sweats, Weakness, Malaise Eyes: No: Pain, Vision change, Conjunctivae inflammation, Eyelid inflammation, Other, Redness ENT: Nose congestion; No: Ear pain, Ear discharge, Nose pain, Nose discharge, Mouth pain, Mouth swelling, Throat pain, Throat swelling, Other Respiratory: Cough, Shortness of breath, Wheezing, Sputum (yellow); No: Hemoptysis, Pleuritic Pain Cardiovascular: Palpitations, Paroxysmal Noc. Dyspnea, Lt Headedness; No: Chest Pain, Orthopnea Gastrointestinal: No: Nausea, Vomiting, Abdominal Pain, Diarrhea, Constipation , Melena, Hematochezia, Other Neurological: Weakness Sepsis Event Evaluation Height, Weight, BMI Height: 5'6.00" Weight: 267lbs. 11.2oz. 121.520168wa; 43.0 BMI Method: Exam Exam Vital Signs Date Time Temp Pulse Resp B/P (MAP) Pulse Ox O2 Delivery O2 Flow Rate FiO2 7/20/18 05:33 96.9 84 19 91/63 (72) 98 Nasal Cannula 3.00 09/07/17 21:47 99.0 09/07/17 21:40 99.0 09/07/17 20:41 101.0 09/07/17 20:00 Nasal Cannula 3.00 09/07/17 19:17 91 Nasal Cannula 3.00 09/07/17 18:37 94 Room Air 09/07/17 18:00 101.6 94 16 101/66 (78) 91 Nasal Cannula 3.00 09/07/17 16:00 101.4 09/07/17 09:03 Room Air 09/07/17 06:57 101.0 92 Room Air I & O 09/08/17 07:00 Intake Total 2870 ml Output Total 2400 ml Balance 470 ml Height & Weight Height: 5'6.00" Weight: 267lbs. 11.2oz. 121.884456he; 43.0 BMI Method: General Appearance: No Apparent Distress, WD/WN, Anxious, Obese HEENT: PERRL/EOMI, Normal ENT Inspection Neck: Full Range of Motion, Normal Inspection, Supple Respiratory: Lungs Clear, No Accessory Muscle Use, No Respiratory Distress, Decreased Breath Sounds Cardiovascular: Regular Rate, Rhythm, No Murmur Gastrointestinal: non tender, soft Neurologic/Psychiatric: Alert, Oriented x3, No Motor/Sensory Deficits, Normal Mood/Affect Skin: Normal Color, Warm/Dry Results Lab Laboratory Tests 09/06/17 14:50 09/07/17 05:10 09/07/17 20:30 Assessment/Plan Assessment/Plan pneumonia with hypoxia -Oxygen -Start SVNs, IS -Change Abx to vanco, zosyn- - check Shah cultures -repeat PA/LAT CXR pending -start IVF with LR at 150 for now and await labs -ABG and previous labs, radiology reviewed -Monitor close if pt gets any worse may have to transfer to ICU UTI -cultures pending Morbid obesity debility with Left BKA -PT/OT Afib - controlled CRISTOBAL STEVEN DO Sep 08, 2017 06:47
[2017-09-08 07:01] LABS: CALCIUM 7.7 MG/DL (8.5-10.1); CREATININE SERUM 2.78 MG/DL (0.60-1.30); POTASSIUM 3.6 MMOL/L (3.6-5.0)
[2017-09-08 07:17] LABS: ALBUMIN 3.3 GM/DL (3.2-4.5); CALCIUM 7.6 MG/DL (8.5-10.1); CREATININE SERUM 2.81 MG/DL (0.60-1.30); MAGNESIUM 1.7 MG/DL (1.8-2.4); PHOSPHORUS 3.5 MG/DL (2.3-4.7); POTASSIUM 3.6 MMOL/L (3.6-5.0); TOTAL PROTEIN 6.5 GM/DL (6.4-8.2)
--- NOTE | 2017-09-08 07:52 | Progress Note (SOAP) ---
Subjective Time Seen by Provider: 07:40 Subjective/Events-last exam Patient vomited yesterday afternoon. Patient after that showed x-ray with pneumonia. Aspiration pneumonia. Patient had shortness of breath after vomiting Focused Exam Lactate Level 09/07/17 17:00: Lactic Acid Level 0.79 09/08/17 06:50: Lactic Acid Level 0.74 Lactic Acid Level Laboratory Tests Test 09/08/17 06:50 Lactic Acid Level 0.74 MMOL/L (0.50-2.00) Objective Exam Vital Signs Date Time Temp Pulse Resp B/P (MAP) Pulse Ox O2 Delivery O2 Flow Rate FiO2 09/08/17 06:34 98 Nasal Cannula 3.00 09/08/17 05:33 96.9 84 19 91/63 (72) 98 Nasal Cannula 3.00 09/07/17 21:47 99.0 09/07/17 21:40 99.0 09/07/17 20:41 101.0 09/07/17 20:00 Nasal Cannula 3.00 09/07/17 19:17 91 Nasal Cannula 3.00 09/07/17 18:37 94 Room Air 09/07/17 18:00 101.6 94 16 101/66 (78) 91 Nasal Cannula 3.00 09/07/17 16:00 101.4 09/07/17 09:03 Room Air I & O 09/08/17 07:00 Intake Total 2870 ml Output Total 2400 ml Balance 470 ml Capillary Refill : General Appearance: No Apparent Distress, WD/WN HEENT: Normal ENT Inspection Neck: Full Range of Motion, Normal Inspection Respiratory: No Accessory Muscle Use, No Respiratory Distress, Other (Course) Cardiovascular: Regular Rate, Rhythm Gastrointestinal: non tender, soft Results Lab Laboratory Tests 09/07/17 11:17: Glucometer 179H 09/07/17 15:46: Glucometer 228H 09/07/17 17:00: Lactic Acid Level 0.79 09/07/17 20:24: Blood Gas Puncture Site RT RAD, Blood Gas Patient Temperature 101.6, Arterial Blood pH 7.37, Arterial Blood Partial Pressure CO2 41, Arterial Blood Partial Pressure O2 84, Arterial Blood HCO3 23, Arterial Blood Total CO2 24.3, Arterial Blood Oxygen Saturation 95, Arterial Blood Base Excess -1.0, Srikanth Test YES-POS , Blood Gas Ventilator Setting NO, Blood Gas Inspired Oxygen 3L 09/07/17 20:30: White Blood Count 14.8H, Red Blood Count 3.13L, Hemoglobin 8.9L, Hematocrit 28L , Mean Corpuscular Volume 89, Mean Corpuscular Hemoglobin 28, Mean Corpuscular Hemoglobin Concent 32, Red Cell Distribution Width 18.1H, Platelet Count 180, Mean Platelet Volume 9.3 09/07/17 21:19: Glucometer 241H 09/08/17 05:19: Glucometer 134H 09/08/17 06:20: White Blood Count 10.8, Red Blood Count 2.95L, Hemoglobin 8.4L, Hematocrit 27L, Mean Corpuscular Volume 90, Mean Corpuscular Hemoglobin 29, Mean Corpuscular Hemoglobin Concent 32, Red Cell Distribution Width 17.8H, Platelet Count 153, Mean Platelet Volume 9.1, Neutrophils (%) (Auto) 88H, Lymphocytes (%) (Auto) 4L , Monocytes (%) (Auto) 8, Eosinophils (%) (Auto) 0, Basophils (%) (Auto) 0, Neutrophils # (Auto) 9.5H, Lymphocytes # (Auto) 0.4L, Monocytes # (Auto) 0.8, Eosinophils # (Auto) 0.0, Basophils # (Auto) 0.0, Sodium Level 134L, Potassium Level 3.6, Chloride Level 99, Carbon Dioxide Level 25, Anion Gap 10, Blood Urea Nitrogen 48H, Creatinine 2.81H, Estimat Glomerular Filtration Rate 17, BUN/ Creatinine Ratio 17, Glucose Level 122H, Calcium Level 7.6L, Phosphorus Level 3.5, Magnesium Level 1.7L, Total Bilirubin 1.0, Aspartate Amino Transf (AST/SGOT ) 25, Alanine Aminotransferase (ALT/SGPT) 25, Alkaline Phosphatase 82, B-Type Natriuretic Peptide 605.7H, Total Protein 6.5, Albumin 3.3, Smear Scan 09/08/17 06:50: Lactic Acid Level 0.74 Microbiology 09/06/17 Urine Culture - Final, Complete NO GROWTH Assessment/Plan Assessment/Plan Assess & Plan/Chief Complaint Debility. Acute on chronic renal failure. Atrial fibrillation. Diabetes. BKA left. Sleep apnea obstructive. . 08/25/17. Debility. Acute on chronic renal failure. Atrial fibrillation. Diabetes. BKA. Obstructive sleep apnea. Patient feels of foot is slightly swollen Patient working hard yesterday. . 08/28/17. Debility. Acute and chronic renal failure. Atrial fibrillation. Diabetes Patient gained 5 pounds.. . 08/31/17 debility. Chronic renal failure. Atrial fibrillation. Diabetes Patient lost a little weight. . 09/01/17. Debility. Acute and chronic renal failure. Atrial fibrillation. Diabetes. Patient was 7 pounds. Patient put on Demadex by renal specialist. . 09/04/17. Debility. Chronic renal failure. Atrial fibrillation. Diabetes. Patient lost another 2 pounds. . 09/05/17. Debility. Chronic renal failure. Atrial fibrillation history. Diabetes. Patient lost another 3 pounds. Patient improving. . . Debility. Chronic renal failure. Diabetes. Patient states she didn't lose any weight today. . 09/07/17. Debility. Chronic renal failure. UTI being evaluated. Diabetes. Patient states she doesn't feel well today. . 09/08/17. Debility. Chronic renal failure. Diabetes. Aspiration pneumonia.. Urine culture no growth Clinical Quality Measures DVT/VTE Risk/Contraindication: Risk Factor Score Per Nursin RFS Level Per Nursing on Admit: 4+=Very High URSULA RENEE DO Sep 08, 2017 07:52
--- NOTE | 2017-09-08 08:23 | PM & R (SOAP) Progress Note ---
Subjective This was a face to face visit with the patient. Date Seen by Provider: Sep 08, 2017 Time Seen by Provider: 07:55 Subjective/Events-last exam Patient was seen in her room this AM.Patieny SBA for transfers Was set for discharge yesterday when she developed nausea and fever UC&S negative bu CXR revealed RUL pneumonia Discussed case with DR Christina this AM and last evening by phone DR Moeller consulted and Antibiotics begun.Discharge on hold for now.CBC and Chem lab noted Review of Systems Pulmonary: Dyspnea vaginal dryness Objective Physician Exam Last Set of Vital Signs Vital Signs Date Time Temp Pulse Resp B/P (MAP) Pulse Ox O2 Delivery O2 Flow Rate FiO2 09/08/17 06:34 98 Nasal Cannula 3.00 09/08/17 05:33 96.9 84 19 91/63 (72) Capillary Refill : I&O Intake and Output 09/08/17 00:00 Intake Total 3070 ml Output Total 3200 ml Balance -130 ml Intake Oral 2150 ml IV Total 920 ml Output Urine Total 3200 ml # Bowel Movements 1 General: Alert, Oriented X3, Cooperative, No Acute Distress HEENT: Atraumatic, PERRLA, EOMI, Mucous Memb Moist/[place] Neck: Supple, No JVD Lungs: Clear to Auscultation Heart: Regular Rate, Other (Irregular rhythm) Abdomen: Normal Bowel Sounds, Soft, No Tenderness Extremities: Other (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 Mild rt cellulitis of the leg) Neuro: Other (generalized weakness) Results Lab Data Laboratory Tests 09/05/17 10:58: Glucometer 148H 09/05/17 16:11: Glucometer 123H 09/05/17 20:26: Glucometer 203H 09/06/17 05:43: Glucometer 113H 09/06/17 11:28: Glucometer 224H 09/06/17 14:35: Urine Color YELLOW, Urine Clarity CLEAR, Urine pH 6.5, Urine Specific [place] 1.010L, Urine Protein 1+H, Urine Glucose (UA) NEGATIVE, Urine Ketones NEGATIVE, Urine Nitrite NEGATIVE, Urine Bilirubin NEGATIVE, Urine Urobilinogen NORMAL, Urine Leukocyte Esterase 2+H, Urine RBC (Auto) 2+H, Urine RBC 0-2, Urine WBC 5- 10H, Urine Squamous Epithelial Cells 2-5, Urine Renal Epithelial Cells NONE, Urine Crystals NONE, Urine Bacteria NEGATIVE, Urine Casts NONE, Urine Mucus NEGATIVE, Urine Culture Indicated YES 09/06/17 14:50: White Blood Count 10.5, Red Blood Count 3.44L, Hemoglobin 9.8L, Hematocrit 31L, Mean Corpuscular Volume 89, Mean Corpuscular Hemoglobin 29, Mean Corpuscular Hemoglobin Concent 32, Red Cell Distribution Width 17.9H, Platelet Count 220, Mean Platelet Volume 9.2 09/06/17 15:33: Glucometer 102 09/06/17 21:36: Glucometer 125H 09/07/17 05:10: White Blood Count 9.2, Red Blood Count 3.18L, Hemoglobin 9.0L, Hematocrit 29L, Mean Corpuscular Volume 90, Mean Corpuscular Hemoglobin 28, Mean Corpuscular Hemoglobin Concent 32, Red Cell Distribution Width 18.2H, Platelet Count 189, Mean Platelet Volume 9.5, Neutrophils (%) (Auto) 82H, Lymphocytes (%) (Auto) 7L , Monocytes (%) (Auto) 10, Eosinophils (%) (Auto) 0, Basophils (%) (Auto) 1, Neutrophils # (Auto) 7.5, Lymphocytes # (Auto) 0.7L, Monocytes # (Auto) 0.9, Eosinophils # (Auto) 0.0, Basophils # (Auto) 0.1, Neutrophils % (Manual) 83, Lymphocytes % (Manual) 7, Monocytes % (Manual) 9, Eosinophils % (Manual) 0, Basophils % (Manual) 0, Band Neutrophils 1, Poikilocytosis SLIGHT, Anisocytosis SLIGHT, Elliptocytes SLIGHT, Sodium Level 136, Potassium Level 3.7, Chloride Level 102, Carbon Dioxide Level 24, Anion Gap 10, Blood Urea Nitrogen 46H, Creatinine 2.47H, Estimat Glomerular Filtration Rate 20, BUN/Creatinine Ratio 19 , Glucose Level 101, Calcium Level 8.0L 09/07/17 05:11: Glucometer 112H 09/07/17 11:17: Glucometer 179H 09/07/17 15:46: Glucometer 228H 09/07/17 17:00: Lactic Acid Level 0.79 09/07/17 20:24: Blood Gas Puncture Site RT RAD, Blood Gas Patient Temperature 101.6, Arterial Blood pH 7.37, Arterial Blood Partial Pressure CO2 41, Arterial Blood Partial Pressure O2 84, Arterial Blood HCO3 23, Arterial Blood Total CO2 24.3, Arterial Blood Oxygen Saturation 95, Arterial Blood Base Excess -1.0, Srikanth Test YES-POS , Blood Gas Ventilator Setting NO, Blood Gas Inspired Oxygen 3L 09/07/17 20:30: White Blood Count 14.8H, Red Blood Count 3.13L, Hemoglobin 8.9L, Hematocrit 28L , Mean Corpuscular Volume 89, Mean Corpuscular Hemoglobin 28, Mean Corpuscular Hemoglobin Concent 32, Red Cell Distribution Width 18.1H, Platelet Count 180, Mean Platelet Volume 9.3 09/07/17 21:19: Glucometer 241H 09/08/17 05:19: Glucometer 134H 09/08/17 06:20: White Blood Count 10.8, Red Blood Count 2.95L, Hemoglobin 8.4L, Hematocrit 27L, Mean Corpuscular Volume 90, Mean Corpuscular Hemoglobin 29, Mean Corpuscular Hemoglobin Concent 32, Red Cell Distribution Width 17.8H, Platelet Count 153, Mean Platelet Volume 9.1, Neutrophils (%) (Auto) 88H, Lymphocytes (%) (Auto) 4L , Monocytes (%) (Auto) 8, Eosinophils (%) (Auto) 0, Basophils (%) (Auto) 0, Neutrophils # (Auto) 9.5H, Lymphocytes # (Auto) 0.4L, Monocytes # (Auto) 0.8, Eosinophils # (Auto) 0.0, Basophils # (Auto) 0.0, Sodium Level 134L, Potassium Level 3.6, Chloride Level 99, Carbon Dioxide Level 25, Anion Gap 10, Blood Urea Nitrogen 48H, Creatinine 2.81H, Estimat Glomerular Filtration Rate 17, BUN/ Creatinine Ratio 17, Glucose Level 122H, Calcium Level 7.6L, Phosphorus Level 3.5, Magnesium Level 1.7L, Total Bilirubin 1.0, Aspartate Amino Transf (AST/SGOT ) 25, Alanine Aminotransferase (ALT/SGPT) 25, Alkaline Phosphatase 82, B-Type Natriuretic Peptide 605.7H, Total Protein 6.5, Albumin 3.3, Smear Scan 09/08/17 06:50: Lactic Acid Level 0.74 Microbiology 09/06/17 Urine Culture - Final, Complete NO GROWTH Assessment/Plan Assessment and Plan General eebil secondary to acute on chronic KD Renal Physician has adjusted meds Debilitation due to RUL pneumonia on antibiotics DR Moeller following Fliud overload dddiuresing Flex contracture 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 has made adjustment to compensate Type 2 DM E COLI UTI treated F/U Culture negative Residual limb scabbing healing YUDY HTN controlled A FIB controlled EKG noted Acute on chronic diastolic dysfuntion compensated Tobaccoism abstaining Plan Continue PT/OT as tolerated Discharge postponed til next week due to acute illness (1) Renal failure (ARF), acute on chronic Qualifiers: Qualified Codes: N17.9 - Acute kidney failure, unspecified; N18.4 - Chronic kidney disease, stage 4 (severe) Status: Acute Co-Morbidities that are continuing to impact the rehab process: (include details ) IRMA ESPINOZA MD Sep 08, 2017 08:23
--- NOTE | 2017-09-08 08:36 | Occ Therapy Rehab Re-Cert ---
OT Re-Certification Form Plan of Care: ADL Retraining, Functional Mobility, Group Exercise/Act as Ind ( education, exercise, activity tolerance, socialization, funct mobility), UE Funct Exercise/Act, UE Neuromus Re-Ed/Coord Pt was scheduled for discharge but developed pneumonia which has delayed her discharge and affected her functional status. Will continue same goals and interventions and extend end of treatment plan for another week. Treatment Duration: September 15, 2017 Frequency: At least 5 of 7 days/Wk (IRF) Estimated Hrs Per Day: 1.5 hours per day Agreement: Yes Rehab Potential: Fair OT Short Term Goals Short Term Goals Time Frame: Aug 30, 2017 Bathing(FIM): 5 Lower Body Dressing(FIM): 5 Toileting(FIM): 5 Toilet/Commode Transfer(FIM): 5 Additional Short Term Goals: 1-Demonstrate ADL Tasks, 2-Verbalize Understanding , 3-ImproveStrength/Mahad 1=Demonstrate adherence to instructed precautions during ADL tasks. 2=Patient will verbalize/demonstrate understanding of assistive devices/ modifications for ADL. 3=Patient will improve strength/tolerance for activity to enable patient to perform ADL's. OT Prison Goals Prison Goals Time Frame: Sep 08, 2017 Eating (FIM): 7 Grooming(FIM): 6 Bathing(FIM): 6 Upper Body Dressing(FIM): 6 Lower Body Dressing(FIM): 6 Toileting(FIM): 6 Toilet/Commode Transfer(FIM): 6 Shower Transfer(FIM): 5 Additional Goals: 1-Demonstrate ADL Tasks, 2-Verbalize Understanding, 3- ImproveStrength/Mahad 1=Demonstrate adherence to instructed precautions during ADL tasks. 2=Patient will verbalize/demonstrate understanding of assistive devices/ modifications for ADL. 3=Patient will improve strength/tolerance for activity to enable patient to perform ADL's. POLLY HELTON OT Sep 08, 2017 08:36
[2017-09-08] MEDS: GABAPENTIN 300 MG (NEURONTIN) CAP PO SCH ×3 (08:48→21:42)
[2017-09-08] MEDS: CLOPIDOGREL 75 MG (PLAVIX) TABLET PO SCH (08:48)
[2017-09-08] MEDS: APIXABAN 5 MG (ELIQUIS) TABLET PO SCH ×2 (08:48→21:42)
[2017-09-08] MEDS: LACTATED RINGERS 1,000 ML IV SCH ×3 (08:48→23:52)
[2017-09-08] MEDS: DULoxetine 30 MG (CYMBALTA) CAP PO SCH (08:48)
[2017-09-08] MEDS: inSUlin DETERMIR 1 UNIT/0.01 ML (LEVEMIR) CHARGE PER UNIT SQ SCH ×2 (08:49→21:46)
[2017-09-08] MEDS: NYSTATIN CREAM (MYCOSTATIN) 30 GM TUBE TP SCH ×2 (08:49→21:00)
[2017-09-08] MEDS: AMIODARONE 200 MG (CORDARONE) TAB PO SCH (08:49)
[2017-09-08] MEDS: TORSEMIDE 20 MG (DEMADEX) TAB PO SCH (08:49)
[2017-09-08] MEDS: CARVEDILOL 3.125 MG (COREG) TABLET PO SCH ×2 (08:49→21:00)
[2017-09-08] MEDS: ONDANSETRON 4 MG/2 ML (SDV) Z0FRAN IVP PRN (08:56)
[2017-09-08] MEDS: A & D OINT 60 GM TUBE TOP SCH (08:56)
[2017-09-08] MEDS ORDERED: cefTRIAXone INJECTION 1,000 MG in NS (IVPB) 50 ML IV SCH (09:00)
[2017-09-08] MEDS ORDERED: AZITHROMYCIN INJECTION 500 MG in NS (IVPB) 250 ML IV SCH (09:00)
--- NOTE | 2017-09-08 10:08 | Occupational Ther Daily Note ---
OT Current Status-Daily Note Subjective Pt lying in bed. Pt states that she is tired, she woke at 0500 and lab came in multiple times to get blood so she was not able to go back to sleep. Nrsg in room with MILLARD and pt. Pt stated that she felt nauseous, nrsg gave meds. SOA with movement. Pt required encouragement to complete therapy today due to fatigue and medical issues. Mental Status/Objective Patient Orientation: Person, Place, Time, Situation Functional [place] Measure 0=Not Assessed/NA 4=Minimal Assistance 1=Total Assistance 5=Supervision or Setup 2=Maximal Assistance 6=Modified [place] 3=Moderate Assistance 7=Complete [place] Attachments: IV, Oxygen (3L) ADL-Treatment During prior ADL treatments pt able to complete ADLs in 45-60 mins, due to decrease in medical status (pneumonia, nausea and fever) pt takes increased time to complete all ADLs. SOA with tasks and increased fatigue, lengthy recovery breaks. Discussed situation with OTR/L. After therapy, pt lying in bed with call light/phone in reach. All needs met in room. Functional [place] Measure 0=Not Assessed/NA 4=Minimal Assistance 1=Total Assistance 5=Supervision or Setup 2=Maximal Assistance 6=Modified [place] 3=Moderate Assistance 7=Complete IndependenceIRFPAI Quality Coding Scale 6 Independent with activity with or without an assistive device 5 Patient requires set up or clean up by helper. Patient completes activity by themselves 4 Supervision or touching assist (CGA). [place] provide cues , steadying assist 3 The helper provides less than half the effort to complete the activity 2 The helper provides more than half the effort to complete the activity 1 Dependent. The helper does all the effort to complete an activity 7 Patient refused to complete or attempt activity 9 The patient did not perform the activity before the current illness or injury 88 Not attempted due to Medical conditions or safety concerns Grooming (FIM): 6 (Sitting in w/c, pt able to complete by self.) Oral Hygiene (QC): 6 Bathing (FIM): 4 (Using shower bench, grabbars and hand held shower pt able to complete bathing and rinsing. Pt fatigued and requested assist to dry arms.) Bathing Location: L Arm, R Arm, L Upper Leg, R Upper Leg, L Lower Leg ( including foot), R Lower Leg (including foot), Chest, Abdomen, Buttocks, Perineal Area Shower/Bathe Self (QC): 3 Upper Body (FIM): 5 (After set up, pt able to complete donning/doffing upper body clothing.) Upper Body Dressing (QC): 5 Lower Body Dressing (FIM): 4 (Pt able to don/doff over feet. Due to decreased activity tolerance pt required assist to hike pants over hip to don/doff.) Lower Body Dressing (QC): 3 On/Off Footwear (QC): 5 Toileting (FIM): 4 (Assist to hike pants over hips, completes hygiene by self.) Toileting Hygiene (QC): 3 Toilet/Commode Transfer (FIM): 4 (CGA using w/c, grabbar and BSC.) Toilet Transfer (QC): 3 Shower Transfer(FIM): 3 (Mod A to stand from shower bench using w/c and grabbars. SPT to w/c, CGA.) OT Short Term Goals Short Term Goals Time Frame: Aug 30, 2017 Bathing(FIM): 5 Lower Body Dressing(FIM): 5 Toileting(FIM): 5 Toilet/Commode Transfer(FIM): 5 Additional Short Term Goals: 1-Demonstrate ADL Tasks, 2-Verbalize Understanding , 3-ImproveStrength/Mahad 1=Demonstrate adherence to instructed precautions during ADL tasks. 2=Patient will verbalize/demonstrate understanding of assistive devices/ modifications for ADL. 3=Patient will improve strength/tolerance for activity to enable patient to perform ADL's. OT [employer] Goals [employer] Goals Time Frame: Sep 08, 2017 Eating (FIM): 7 Eating (QC): 6 Groomin Oral Hygiene (QC): 6 Bathing(FIM): 6 Shower/Bathe Self (QC): 6 Upper Body Dressing(FIM): 6 Upper Body Dressing (QC): 6 Lower Body Dressing(FIM): 6 Lower Body Dressing (QC): 6 On/Off Footwear (QC): 6 Toileting(FIM): 6 Toileting Hygiene (QC): 6 Toilet/Commode Transfer(FIM): 6 Toilet/Commode Transfer (QC): 6 Shower Transfer(FIM): 5 Additional Goals: 1-Demonstrate ADL Tasks, 2-Verbalize Understanding, 3- ImproveStrength/Mahad 1=Demonstrate adherence to instructed precautions during ADL tasks. 2=Patient will verbalize/demonstrate understanding of assistive devices/ modifications for ADL. 3=Patient will improve strength/tolerance for activity to enable patient to perform ADL's. OT Education/Plan Problem List/Assessment Pt would benefit from skilled OT to increase her independence in basic self care to allow her to safely return home with family after long hospitalization Discharge Recommendations Plan/Recommendations: Continue POC Treatment Plan/Plan of Care Patient would benefit from OT for education, treatment and training to promote independence in ADL's, mobility, safety and/or upper extremity function for ADL' s. Plan of Care: ADL Retraining, Functional Mobility, Group Exercise/Act as Ind ( education, exercise, activity tolerance, socialization, funct mobility), UE Funct Exercise/Act, UE Neuromus Re-Ed/Coord Treatment Duration: Sep 08, 2017 Frequency: At least 5 of 7 days/Wk (IRF) Estimated Hrs Per Day: 1.5 hours per day Agreement: Yes Rehab Potential: Fair Time/GCodes Start Time: 08:30 Stop Time: 10:00 Total Time Billed (hr/min): 60 Billed Treatment Time 1 visit-ADL 6 (90 min) ANA HWANG Sep 08, 2017 10:08
--- NOTE | 2017-09-08 11:55 | Physical Therapy Daily Note ---
PT Daily Note-Current Subjective Pt. states she is so very weak but did sleep last night and feels like her fever is reduced and she is improving over all. Pain Numeric Pain Scale: 0-No Pain Mental Status Patient Orientation: Normal For Age Attachments: IV Transfers Functional [place] Measure 0=Not Assessed/NA 4=Minimal Assistance 1=Total Assistance 5=Supervision or Setup 2=Maximal Assistance 6=Modified [place] 3=Moderate Assistance 7=Complete IndependenceIRFPAI Quality Coding Scale 6 Independent with activity with or without an assistive device 5 Patient requires set up or clean up by helper. Patient completes activity by themselves 4 Supervision or touching assist (CGA). [place] provide cues , steadying assist 3 The helper provides less than half the effort to complete the activity 2 The helper provides more than half the effort to complete the activity 1 Dependent. The helper does all the effort to complete an activity 7 Patient refused to complete or attempt activity 9 The patient did not perform the activity before the current illness or injury 88 Not attempted due to Medical conditions or safety concerns Transfers (B, C, W/C) (FIM): 5 Scootin Rollin Supine to/from Sit: 5 pt. rolling left to right x 5 ea direction, pulls self up in bed using right LE and rails all indep Weight Bearing Right Lower Extremity: Right Weight Bearing/Tolerated Left Lower Extremity: Left Weight Bearing/Tolerated Exercises Supine Ex: Bridging, Ankle pumps, Quad Set, Rolling, Glut sets, Heel Slides, Short Arc Quads, Scooting, Straight leg raise, Hip abd/add Supine Reps: 20 Seated Therapy Exercises: Ankle pumps, Long arc quads, Hip flexion, Hip abd/add Seated Reps: 20 sidelying hip abduction x 12 ea Assessment Current Status: Good Progress sat EOB for exercise and then ordered lunch. declined sit to stand or TRF to WC PT Short Term Goals Short Term Goals Time Frame: Aug 30, 2017 Gait (FIM): 2 Gait Distance Comment: 50' Gait Level of Assist: 4 Gait Assistive Device: FWW Wheelchair Distance: 25' PT Senior Living Goals Senior Living Goals PT Senior Living Goals Time Frame: Sep 13, 2017 Transfers (B,C,W/C) (FIM): 6 Sit to Lying (QC): 6 Lying-Sitting on Side/Bed(QC): 6 Sit to Stand (QC): 6 Rollin Roll Left to Right (QC): 6 Chair/Cki-ar-Qmubj Xfer(QC): 6 Car Transfer (QC): 6 Gait (FIM): 2 Distance: 100' Walk 10 feet (QC): 4 Walk 10ft-Uneven Surface(QC): 4 Walk 50ft with 2 Turns (QC): 4 Gait Level of Assist: 5 Gait Assistive Device: FWW Wheelchair (FIM): 6 Stairs (FIM): 1 # of Steps: 1 1 Step (curb) (QC): 4 Stairs Level Of Assist: 4 PT Plan Treatment/Plan Treatment Plan: Continue Plan of Care Treatment Plan: Bed Mobility, Education, Functional Activity Mahad, Functional Strength, Group Therapy, Gait, Safety, Therapeutic Exercise, Transfers Treatment Duration: Sep 13, 2017 Frequency: At least 5 of 7 days/Wk (IRF) Estimated Hrs Per Day: 1.5 hours per day Patient and/or Family Agrees t: Yes Safety Risks/Education Patient Education: Transfer Techniques, Correct Positioning, Disease Process, Safety Issues Teaching Recipient: Patient Teaching Methods: Discussion Response to Teaching: Return Demonstration, Reinforcement Needed discussed importance of activity with pnuemonia Time/GCodes Time In: 1045 Time Out: 1150 Total Billed Treatment Time: 65 Total Billed Treatment 1,FA35m,EX30m G Codes Necessary: MARINO Roca JOCKEY AGENT Sep 08, 2017 11:55
[2017-09-08] MEDS: MAGNESIUM 1 GM/100 ML IVPB 100 ML IV SCH ×2 (13:03→14:31)
--- NOTE | 2017-09-08 15:11 | Physical Therapy Daily Note ---
PT Daily Note-Current Subjective Pt states she got up with nursing to w/c to the bathroom and . It went "OK" but it wore her out. Pt. sitting up EOB. Agrees to bed mobility and ther ex Pain Numeric Pain Scale: 0-No Pain Mental Status Patient Orientation: Normal For Age Transfers Functional [place] Measure 0=Not Assessed/NA 4=Minimal Assistance 1=Total Assistance 5=Supervision or Setup 2=Maximal Assistance 6=Modified [place] 3=Moderate Assistance 7=Complete IndependenceIRFPAI Quality Coding Scale 6 Independent with activity with or without an assistive device 5 Patient requires set up or clean up by helper. Patient completes activity by themselves 4 Supervision or touching assist (CGA). [place] provide cues , steadying assist 3 The helper provides less than half the effort to complete the activity 2 The helper provides more than half the effort to complete the activity 1 Dependent. The helper does all the effort to complete an activity 7 Patient refused to complete or attempt activity 9 The patient did not perform the activity before the current illness or injury 88 Not attempted due to Medical conditions or safety concerns rolling left to right, pulls self up in bed and sat EOB all SBA Weight Bearing Right Lower Extremity: Right Weight Bearing/Tolerated Left Lower Extremity: Left Weight Bearing/Tolerated Exercises Supine Ex: Bridging, Ankle pumps, Quad Set, Rolling, Glut sets, Heel Slides, Short Arc Quads, Scooting, Straight leg raise, Hip abd/add Supine Reps: 15 Seated Therapy Exercises: Ankle pumps, Long arc quads, Hip flexion Seated Reps: 15 Treatments reviewed exercises pt. can do in bed for mobility and circulation when she is in bed alone. Pt. requested towel roll for her neck, this was accomplished with some relief of pts. Sxs Assessment Current Status: Good Progress tolerating the increase in activity PT Short Term Goals Short Term Goals Time Frame: Aug 30, 2017 Gait (FIM): 2 Gait Distance Comment: 50' Gait Level of Assist: 4 Gait Assistive Device: FWW Wheelchair Distance: 25' PT [facility] Goals [facility] Goals PT [facility] Goals Time Frame: Sep 13, 2017 Transfers (B,C,W/C) (FIM): 6 Sit to Lying (QC): 6 Lying-Sitting on Side/Bed(QC): 6 Sit to Stand (QC): 6 Rollin Roll Left to Right (QC): 6 Chair/Aos-sg-Apujm Xfer(QC): 6 Car Transfer (QC): 6 Gait (FIM): 2 Distance: 100' Walk 10 feet (QC): 4 Walk 10ft-Uneven Surface(QC): 4 Walk 50ft with 2 Turns (QC): 4 Gait Level of Assist: 5 Gait Assistive Device: FWW Wheelchair (FIM): 6 Stairs (FIM): 1 # of Steps: 1 1 Step (curb) (QC): 4 Stairs Level Of Assist: 4 PT Plan Treatment/Plan Treatment Plan: Continue Plan of Care Treatment Plan: Bed Mobility, Education, Functional Activity Mahad, Functional Strength, Group Therapy, Gait, Safety, Therapeutic Exercise, Transfers Treatment Duration: Sep 13, 2017 Frequency: At least 5 of 7 days/Wk (IRF) Estimated Hrs Per Day: 1.5 hours per day Patient and/or Family Agrees t: Yes Safety Risks/Education Patient Education: Transfer Techniques, Correct Positioning, Safety Issues Teaching Recipient: Patient Teaching Methods: Demonstration, Discussion Response to Teaching: Verbalize Understanding, Return Demonstration, Reinforcement Needed Time/GCodes Time In: 1440 Time Out: 1510 Total Billed Treatment Time: 30 Total Billed Treatment 1,FA15m,EX15 G Codes Necessary: MARINO Roca PROFESSOR OF JOURNALISM Sep 08, 2017 15:11
[2017-09-08] MEDS: ALPRAZolam 0.5 MG (XANAX) TAB PO PRN ×2 (15:47→23:26)
[2017-09-08 16:56] VITALS: BP 97/66
[2017-09-08] MEDS ORDERED: VANCOMYCIN 1,750 MG/NS 500 ML IVPB IV SCH ×2 (20:00)
[2017-09-08] MEDS: SIMvastatin 20 MG (ZOCOR) TAB PO SCH (21:42)
[2017-09-09] MEDS: LACTATED RINGERS 1,000 ML IV SCH ×2 (00:05→12:50)
[2017-09-09] MEDS: PIPERACILLIN/TAZOBACTAM 3.375 GM in D5W 100 ML IVPB 100 ML IV SCH ×3 (01:58→18:20)
[2017-09-09 06:00] VITALS: BP 104/69
[2017-09-09] MEDS: inSUlin ASPART (NovoLOG) 1 UNIT/0.01 ML (CHARGE PER UNIT) SC SCH ×4 (06:00→21:06)
[2017-09-09 06:11] LABS: BASOPHILS % (AUTO) 0 % (0-10); EOSINOPHILS # (AUTO) 0.1 10^3/uL (0.0-0.3); EOSINOPHILS % (AUTO) 1 % (0-10); HEMATOCRIT 25 % (35-52); LYMPHOCYTES # (AUTO) 0.5 X 10^3 (1.0-4.0); LYMPHOCYTES % (AUTO) 5 % (12-44); MEAN CORPUSCULAR HEMOGLOBIN 29 PG (25-34); MEAN CORPUSCULAR HGB CONC 32 G/DL (32-36); MEAN CORPUSCULAR VOLUME 90 FL (80-99); MEAN PLATELET VOLUME 9.6 FL (7.4-10.4); MONOCYTES % (AUTO) 9 % (0-12); NEUTROPHILS % (AUTO) 85 % (42-75); PLATELET COUNT 167 10^3/uL (130-400); RED BLOOD COUNT 2.81 10^6/uL (4.35-5.85); RED CELL DISTRIBUTION WIDTH 17.6 % (10.0-14.5); WHITE BLOOD COUNT 10.6 10^3/uL (4.3-11.0)
[2017-09-09] MEDS: RT-ALBUTEROL SULF 2.5 MG/3 ML PRE-MIX VIAL INH SCH ×4 (06:40→18:46)
[2017-09-09] MEDS: CALCIUM ACETATE 667 MG CAP (PHOSLO) PO SCH ×3 (07:01→16:52)
--- NOTE | 2017-09-09 07:46 | Diagnostic Imaging Report ---
INDICATION: Pneumonia. COMPARISON: 09/07/2017 FINDINGS: There is relatively diffuse airspace disease throughout the right lung. There is also a left upper lobe infiltrate. There is cardiomegaly. There is no pleural effusion or pneumothorax. The mediastinum is unremarkable. IMPRESSION: Diffuse airspace disease in the right lung as well as a focal infiltrate in the left upper lobe, both suspect for pneumonia. Mild cardiomegaly. Dictated by: Dictated on workstation # [id number]
--- NOTE | 2017-09-09 08:40 | Occupational Ther Daily Note ---
OT Current Status-Daily Note Subjective Pt sitting on EOB talking on phone. Pt agrees to therapy. C/o fatigue, no pain at this time. Mental Status/Objective Patient Orientation: Person, Place, Time Functional [place] Measure 0=Not Assessed/NA 4=Minimal Assistance 1=Total Assistance 5=Supervision or Setup 2=Maximal Assistance 6=Modified [place] 3=Moderate Assistance 7=Complete [place] Attachments: IV, Oxygen ADL-Treatment Pt declined showering or changing clothing. With activities pt demonstrates SOA and requires recovery breaks throughout treatment. After set up, pt completed upper body sponge bath with cleansing wipes and oral care. Pt ordered breakfast and was able to open packages/containers, uses regular utensils to feed self. After therapy, pt sitting on EOB eating breakfast. Call light/phone in reach. All needs met in room. Functional [place] Measure 0=Not Assessed/NA 4=Minimal Assistance 1=Total Assistance 5=Supervision or Setup 2=Maximal Assistance 6=Modified [place] 3=Moderate Assistance 7=Complete IndependenceIRFPAI Quality Coding Scale 6 Independent with activity with or without an assistive device 5 Patient requires set up or clean up by helper. Patient completes activity by themselves 4 Supervision or touching assist (CGA). [place] provide cues , steadying assist 3 The helper provides less than half the effort to complete the activity 2 The helper provides more than half the effort to complete the activity 1 Dependent. The helper does all the effort to complete an activity 7 Patient refused to complete or attempt activity 9 The patient did not perform the activity before the current illness or injury 88 Not attempted due to Medical conditions or safety concerns Eating (FIM): 7 Eating (QC): 6 OT Short Term Goals Short Term Goals Time Frame: Aug 30, 2017 Bathing(FIM): 5 Lower Body Dressing(FIM): 5 Toileting(FIM): 5 Toilet/Commode Transfer(FIM): 5 Additional Short Term Goals: 1-Demonstrate ADL Tasks, 2-Verbalize Understanding , 3-ImproveStrength/Mahad 1=Demonstrate adherence to instructed precautions during ADL tasks. 2=Patient will verbalize/demonstrate understanding of assistive devices/ modifications for ADL. 3=Patient will improve strength/tolerance for activity to enable patient to perform ADL's. OT Water Server Goals Senior Care Goals Time Frame: Sep 08, 2017 Eating (FIM): 7 Eating (QC): 6 Groomin Oral Hygiene (QC): 6 Bathing(FIM): 6 Shower/Bathe Self (QC): 6 Upper Body Dressing(FIM): 6 Upper Body Dressing (QC): 6 Lower Body Dressing(FIM): 6 Lower Body Dressing (QC): 6 On/Off Footwear (QC): 6 Toileting(FIM): 6 Toileting Hygiene (QC): 6 Toilet/Commode Transfer(FIM): 6 Toilet/Commode Transfer (QC): 6 Shower Transfer(FIM): 5 Additional Goals: 1-Demonstrate ADL Tasks, 2-Verbalize Understanding, 3- ImproveStrength/Mahad 1=Demonstrate adherence to instructed precautions during ADL tasks. 2=Patient will verbalize/demonstrate understanding of assistive devices/ modifications for ADL. 3=Patient will improve strength/tolerance for activity to enable patient to perform ADL's. OT Education/Plan Problem List/Assessment Pt would benefit from skilled OT to increase her independence in basic self care to allow her to safely return home with family after long hospitalization Discharge Recommendations Plan/Recommendations: Continue POC Treatment Plan/Plan of Care Patient would benefit from OT for education, treatment and training to promote independence in ADL's, mobility, safety and/or upper extremity function for ADL' s. Plan of Care: ADL Retraining, Functional Mobility, Group Exercise/Act as Ind ( education, exercise, activity tolerance, socialization, funct mobility), UE Funct Exercise/Act, UE Neuromus Re-Ed/Coord Treatment Duration: Sep 08, 2017 Frequency: At least 5 of 7 days/Wk (IRF) Estimated Hrs Per Day: 1.5 hours per day Agreement: Yes Rehab Potential: Fair Time/GCodes Start Time: 07:45 Stop Time: 08:15 Total Time Billed (hr/min): 30 Billed Treatment Time 1 visit-FA 2 (30 min) ANA HWANG Sep 09, 2017 08:40
[2017-09-09] MEDS: inSUlin DETERMIR 1 UNIT/0.01 ML (LEVEMIR) CHARGE PER UNIT SQ SCH ×2 (08:44→21:04)
[2017-09-09] MEDS: APIXABAN 5 MG (ELIQUIS) TABLET PO SCH ×2 (08:44→21:03)
[2017-09-09] MEDS: DULoxetine 30 MG (CYMBALTA) CAP PO SCH (08:44)
[2017-09-09] MEDS: AMIODARONE 200 MG (CORDARONE) TAB PO SCH (08:45)
[2017-09-09] MEDS: CARVEDILOL 3.125 MG (COREG) TABLET PO SCH ×2 (08:46→21:09)
[2017-09-09] MEDS: CLOPIDOGREL 75 MG (PLAVIX) TABLET PO SCH (08:46)
[2017-09-09] MEDS: TORSEMIDE 20 MG (DEMADEX) TAB PO SCH (08:46)
[2017-09-09] MEDS: GABAPENTIN 300 MG (NEURONTIN) CAP PO SCH ×3 (08:46→21:03)
[2017-09-09] MEDS: A & D OINT 60 GM TUBE TOP SCH (08:51)
[2017-09-09] MEDS: NYSTATIN CREAM (MYCOSTATIN) 30 GM TUBE TP SCH ×2 (08:51→21:55)
--- NOTE | 2017-09-09 09:20 | Physical Therapy Daily Note ---
PT Daily Note-Current Subjective Patient sitting EOB pre tx, agrees to PT but states she still feels pretty bad. Patient is SOB and on 3L of O2 nasal canula. Appearance Patient sitting EOB post tx with nurse call, phone, tray, all needs met. Mental Status Patient Orientation: Normal For Age Attachments: Oxygen, IV Transfers Functional [place] Measure 0=Not Assessed/NA 4=Minimal Assistance 1=Total Assistance 5=Supervision or Setup 2=Maximal Assistance 6=Modified [place] 3=Moderate Assistance 7=Complete IndependenceIRFPAI Quality Coding Scale 6 Independent with activity with or without an assistive device 5 Patient requires set up or clean up by helper. Patient completes activity by themselves 4 Supervision or touching assist (CGA). [place] provide cues , steadying assist 3 The helper provides less than half the effort to complete the activity 2 The helper provides more than half the effort to complete the activity 1 Dependent. The helper does all the effort to complete an activity 7 Patient refused to complete or attempt activity 9 The patient did not perform the activity before the current illness or injury 88 Not attempted due to Medical conditions or safety concerns Transfers (B, C, W/C) (FIM): 5 Scootin Rollin Supine to/from Sit: 6 Sit to/from Stand: 5 Weight Bearing Right Lower Extremity: Right Weight Bearing/Tolerated Left Lower Extremity: Left Weight Bearing/Tolerated Gait Training Gait (FIM): 1 Distance: 30' Gait Level of Assist: 5 Gait Persons Needed: 1 Gait Assistive Device: FWW Patient ambulates very slowly, short steps, poor heel strike on left side. Patient fatigues very quickly and she can only ambulate to the door of her room and back to bed. She gets very SOB with this short walk. Exercises Seated Therapy Exercises: Ankle pumps (only right side), Long arc quads, Hip flexion Seated Reps: 20 Treatments bed mobility and transfers, ambulation, functional strengthening Assessment Current Status: Poor Progress Patient has been ill has has not been able to ambulate as well. Patient needed rest breaks during exercises. PT Short Term Goals Short Term Goals Time Frame: Aug 30, 2017 Gait (FIM): 2 Gait Distance Comment: 50' Gait Level of Assist: 4 Gait Assistive Device: FWW Wheelchair Distance: 25' PT Snf Goals Home Builder Goals PT Home Builder Goals Time Frame: Sep 13, 2017 Transfers (B,C,W/C) (FIM): 6 Sit to Lying (QC): 6 Lying-Sitting on Side/Bed(QC): 6 Sit to Stand (QC): 6 Rollin Roll Left to Right (QC): 6 Chair/Gpi-kg-Yakje Xfer(QC): 6 Car Transfer (QC): 6 Gait (FIM): 2 Distance: 100' Walk 10 feet (QC): 4 Walk 10ft-Uneven Surface(QC): 4 Walk 50ft with 2 Turns (QC): 4 Gait Level of Assist: 5 Gait Assistive Device: FWW Wheelchair (FIM): 6 Stairs (FIM): 1 # of Steps: 1 1 Step (curb) (QC): 4 Stairs Level Of Assist: 4 PT Plan Problem List Problem List: Activity Tolerance, Functional Strength, Safety, Balance, Gait, Transfer, Bed Mobility, ROM Treatment/Plan Treatment Plan: Continue Plan of Care Treatment Plan: Bed Mobility, Education, Functional Activity Mahad, Functional Strength, Group Therapy, Gait, Safety, Therapeutic Exercise, Transfers Treatment Duration: Sep 13, 2017 Frequency: At least 5 of 7 days/Wk (IRF) Estimated Hrs Per Day: 1.5 hours per day Patient and/or Family Agrees t: Yes Safety Risks/Education Patient Education: Gait Training, Transfer Techniques, Correct Positioning, Safety Issues Teaching Recipient: Patient Teaching Methods: Demonstration, Discussion Response to Teaching: Reinforcement Needed Time/GCodes Time In: 0850 Time Out: 0920 Total Billed Treatment Time: 30 Total Billed Treatment 1 visit GT 10' EX 20' GEM DANIELSON PT Sep 09, 2017 09:20
[2017-09-09 17:04] VITALS: BP 99/65
[2017-09-09] MEDS ORDERED: TROUGH ORDER-PHARMACY XX NR (19:00)
[2017-09-09] MEDS: SIMvastatin 20 MG (ZOCOR) TAB PO SCH (21:03)
[2017-09-09 21:10] VITALS: BP 108/71
[2017-09-10] MEDS: PIPERACILLIN/TAZOBACTAM 3.375 GM in D5W 100 ML IVPB 100 ML IV SCH ×3 (01:40→17:47)
[2017-09-10] MEDS: LACTATED RINGERS 1,000 ML IV SCH ×2 (01:43→15:10)
[2017-09-10] MEDS: ALPRAZolam 0.5 MG (XANAX) TAB PO PRN (01:44)
[2017-09-10 05:14] VITALS: BP 101/67
[2017-09-10 05:58] LABS: BASOPHILS % (AUTO) 0 % (0-10); EOSINOPHILS # (AUTO) 0.2 10^3/uL (0.0-0.3); EOSINOPHILS % (AUTO) 2 % (0-10); HEMATOCRIT 26 % (35-52); HEMOGLOBIN 8.3 G/DL (11.5-16.0); LYMPHOCYTES # (AUTO) 0.5 X 10^3 (1.0-4.0); LYMPHOCYTES % (AUTO) 5 % (12-44); MEAN CORPUSCULAR HEMOGLOBIN 29 PG (25-34); MEAN CORPUSCULAR HGB CONC 32 G/DL (32-36); MEAN CORPUSCULAR VOLUME 90 FL (80-99); MEAN PLATELET VOLUME 9.3 FL (7.4-10.4); MONOCYTES # (AUTO) 0.9 X 10^3 (0.0-1.0); MONOCYTES % (AUTO) 10 % (0-12); NEUTROPHILS # (AUTO) 7.5 X 10^3 (1.8-7.8); NEUTROPHILS % (AUTO) 83 % (42-75); PLATELET COUNT 172 10^3/uL (130-400); RED BLOOD COUNT 2.91 10^6/uL (4.35-5.85); RED CELL DISTRIBUTION WIDTH 17.6 % (10.0-14.5); WHITE BLOOD COUNT 9.1 10^3/uL (4.3-11.0)
[2017-09-10] MEDS: inSUlin ASPART (NovoLOG) 1 UNIT/0.01 ML (CHARGE PER UNIT) SC SCH ×4 (06:06→20:13)
[2017-09-10] MEDS: CALCIUM ACETATE 667 MG CAP (PHOSLO) PO SCH ×3 (06:13→17:47)
[2017-09-10 06:16] LABS: CALCIUM 8.1 MG/DL (8.5-10.1); CREATININE SERUM 2.64 MG/DL (0.60-1.30); POTASSIUM 3.5 MMOL/L (3.6-5.0)
[2017-09-10] MEDS: RT-ALBUTEROL SULF 2.5 MG/3 ML PRE-MIX VIAL INH SCH (06:51)
[2017-09-10] MEDS: CLOPIDOGREL 75 MG (PLAVIX) TABLET PO SCH (08:13)
[2017-09-10] MEDS: GABAPENTIN 300 MG (NEURONTIN) CAP PO SCH ×3 (08:13→20:12)
[2017-09-10] MEDS: DULoxetine 30 MG (CYMBALTA) CAP PO SCH (08:13)
[2017-09-10] MEDS: APIXABAN 5 MG (ELIQUIS) TABLET PO SCH ×2 (08:13→20:12)
[2017-09-10] MEDS: AMIODARONE 200 MG (CORDARONE) TAB PO SCH (08:13)
[2017-09-10 08:15] VITALS: BP 103/72
[2017-09-10] MEDS: NYSTATIN CREAM (MYCOSTATIN) 30 GM TUBE TP SCH ×2 (08:23→19:54)
[2017-09-10] MEDS: CARVEDILOL 3.125 MG (COREG) TABLET PO SCH ×2 (08:23→20:25)
[2017-09-10] MEDS: inSUlin DETERMIR 1 UNIT/0.01 ML (LEVEMIR) CHARGE PER UNIT SQ SCH ×2 (08:34→20:13)
[2017-09-10] MEDS ORDERED: NS W/KCL 20 MEQ/L 1,000 ML IV SCH (09:00)
[2017-09-10] MEDS ORDERED: FUROSEMIDE 40 MG (LASIX) TAB PO ONE (09:00)
[2017-09-10] MEDS ORDERED: KCL 20 MEQ TAB (K-DUR) PO ONE (09:00)
[2017-09-10] MEDS: A & D OINT 60 GM TUBE TOP SCH (09:31)
[2017-09-10] MEDS: RT-ALBUTEROL/IPRATROPIUM 3 ML (DUONEB) VIAL INH SCH ×3 (11:09→19:27)
--- NOTE | 2017-09-10 11:32 | Progress Note-Hospitalist ---
Subjective HPI/CC On Admission Date Seen by Provider: Sep 10, 2017 Time Seen by Provider: 11:00 Subjective/Events-last exam Patient reports feeling about the same today she did yesterday. She denies night sweats chills or fever but reports her cough is loosening. She's had no significant episodes of shortness of breath at rest. She reports that she is swallowing some sputum but not coughing anything up and out. She does report that she feels she is rattling more. Upon my arrival she was sleeping breath sounds were low course but respirations were nonlabored without tachypnea. She denies chest pain. Her blood sugar was down to 50 this morning she was able to eat a reasonable breakfast after poor by mouth intake yesterday. There has been no alteration in mental status per patient or nursing report. Focused Exam Lactate Level 09/07/17 17:00: Lactic Acid Level 0.79 09/08/17 06:50: Lactic Acid Level 0.74 Objective Exam Vital Signs Vital Signs Date Time Temp Pulse Resp B/P (MAP) Pulse Ox O2 Delivery O2 Flow Rate FiO2 09/10/17 11:12 96 Nasal Cannula 3.00 09/10/17 05:14 97.7 91 20 101/67 (78) Capillary Refill : General Appearance: No Apparent Distress, Chronically ill, Obese Respiratory: No Accessory Muscle Use, No Respiratory Distress, Other (Coarse breath sounds with rhonchi throughout mild expiratory wheeze anteriorly on the right) Cardiovascular: No Edema, No Gallop, No Murmur, Irregularly Irregular Extremity: No Pedal Edema Results/Procedures Lab Laboratory Tests 09/10/17 05:46 Patient resulted labs reviewed. Assessment/Plan Assessment and Plan Assess & Plan/Chief Complaint 1. Bilateral pneumonia with increase in oxygen levels although patient still quite fatigued just advise a day of rest and continued antibiotics and will switch from albuterol to DuoNeb via Maxi-Myst. 2. Type II diabetes mellitus with hypoglycemia secondary to decrease by mouth intake mild in severity her Levemir this morning was held we will decrease Levemir to 35 units at at bedtime his hypoglycemia occurred in the early a.m. as her appetite improves she will likely have to be placed back on her regular twice a day dose. 3. Persistent atrial fibrillation rate controlled with normal LV systolic function and evidence for underlying diastolic dysfunction. 4. Recent left BKA with multifactorial debility aggravated by morbid obesity, deconditioning and pneumonia. Clinical Quality Measures DVT/VTE Risk/Contraindication: Risk Factor Score Per Nursin RFS Level Per Nursing on Admit: 4+=Very High ONELI VILLA MD Sep 10, 2017 11:31
[2017-09-10 16:16] VITALS: BP 101/71
[2017-09-10] MEDS: SIMvastatin 20 MG (ZOCOR) TAB PO SCH (20:12)
[2017-09-10 20:25] VITALS: BP 101/61
[2017-09-11] MEDS: PIPERACILLIN/TAZOBACTAM 3.375 GM in D5W 100 ML IVPB 100 ML IV SCH ×3 (02:26→17:33)
[2017-09-11] MEDS: inSUlin ASPART (NovoLOG) 1 UNIT/0.01 ML (CHARGE PER UNIT) SC SCH ×4 (05:22→21:27)
[2017-09-11 05:38] VITALS: BP 122/80
[2017-09-11 05:40] LABS: BASOPHILS % (AUTO) 0 % (0-10); EOSINOPHILS # (AUTO) 0.2 10^3/uL (0.0-0.3); EOSINOPHILS % (AUTO) 2 % (0-10); HEMATOCRIT 26 % (35-52); HEMOGLOBIN 8.1 G/DL (11.5-16.0); LYMPHOCYTES # (AUTO) 0.5 X 10^3 (1.0-4.0); LYMPHOCYTES % (AUTO) 7 % (12-44); MEAN CORPUSCULAR HEMOGLOBIN 28 PG (25-34); MEAN CORPUSCULAR HGB CONC 31 G/DL (32-36); MEAN CORPUSCULAR VOLUME 90 FL (80-99); MEAN PLATELET VOLUME 9.5 FL (7.4-10.4); MONOCYTES # (AUTO) 0.7 X 10^3 (0.0-1.0); MONOCYTES % (AUTO) 10 % (0-12); NEUTROPHILS # (AUTO) 5.7 X 10^3 (1.8-7.8); NEUTROPHILS % (AUTO) 81 % (42-75); PLATELET COUNT 177 10^3/uL (130-400); RED BLOOD COUNT 2.92 10^6/uL (4.35-5.85); RED CELL DISTRIBUTION WIDTH 17.5 % (10.0-14.5)
[2017-09-11 05:54] LABS: MAGNESIUM 2.2 MG/DL (1.8-2.4); PHOSPHORUS 3.3 MG/DL (2.3-4.7)
[2017-09-11] MEDS: LACTATED RINGERS 1,000 ML IV SCH (06:08)
[2017-09-11] MEDS: CALCIUM ACETATE 667 MG CAP (PHOSLO) PO SCH ×3 (06:08→16:13)
--- NOTE | 2017-09-11 06:31 | Pulmonary Progress Note ---
Subjective Time Seen by Provider: 06:31 Subjective/Events-last exam Pt appears to be improving Sepsis Event Evaluation Height, Weight, BMI Height: 5'6.00" Weight: 275lbs. 8.0oz. 124.468307cn; 43.0 BMI Method: Focused Exam Lactate Level 09/08/17 06:50: Lactic Acid Level 0.74 Exam Exam Vital Signs Date Time Temp Pulse Resp B/P (MAP) Pulse Ox O2 Delivery O2 Flow Rate FiO2 09/11/17 05:38 97.6 96 19 122/80 (94) 94 Nasal Cannula 3.00 09/10/17 20:25 101 101/61 (74) 09/10/17 20:00 Nasal Cannula 2.00 09/10/17 19:27 98 Nasal Cannula 3.00 09/10/17 16:16 96.0 89 14 101/71 (81) 96 Nasal Cannula 2.00 09/10/17 14:04 97 Nasal Cannula 3.00 09/10/17 11:12 96 Nasal Cannula 3.00 09/10/17 09:00 Nasal Cannula 3.00 09/10/17 08:15 93 20 103/72 (82) 09/10/17 06:54 98 Nasal Cannula 3.00 I & O 09/11/17 07:00 Intake Total 2860 ml Output Total 2250 ml Balance 610 ml Height & Weight Height: 5'6.00" Weight: 275lbs. 8.0oz. 124.092165dt; 43.0 BMI Method: General Appearance: No Apparent Distress, Chronically ill, Obese HEENT: Normal ENT Inspection Neck: Full Range of Motion, Normal Inspection Respiratory: No Accessory Muscle Use, No Respiratory Distress, Other (Coarse breath sounds with rhonchi throughout mild expiratory wheeze anteriorly on the right) Cardiovascular: No Edema, No Gallop, No Murmur, Irregularly Irregular Gastrointestinal: non tender, soft Extremity: No Pedal Edema Neurologic/Psychiatric: Alert, Oriented x3, No Motor/Sensory Deficits, Normal Mood/Affect Skin: Normal Color, Warm/Dry Results Lab Laboratory Tests 09/10/17 05:46 09/11/17 05:25 Assessment/Plan Assessment/Plan pneumonia with hypoxia -Oxygen - SVNs, IS - zosyn- - check Muñoz cultures pending -repeat labs pending UTI -cultures pending Diarrhea - probably from meds/Abx -check Cdiff toxin Morbid obesity debility with Left BKA -PT/OT Afib - controlled Labs and radiology reviewed CRISTOBAL STEVEN DO Sep 11, 2017 06:31
[2017-09-11] MEDS: RT-ALBUTEROL/IPRATROPIUM 3 ML (DUONEB) VIAL INH SCH ×4 (06:59→19:45)
--- NOTE | 2017-09-11 07:55 | Progress Note (SOAP) ---
Subjective Time Seen by Provider: 07:50 Subjective/Events-last exam Patient feeling better today. Patient states he states she is improving. Patient had hypoglycemia yesterday. Patient not having any respiratory distress. Nasal oxygen has debility and decreased. Lungs sound clear. GFR went up to 19 from 17 Objective Exam Vital Signs Date Time Temp Pulse Resp B/P (MAP) Pulse Ox O2 Delivery O2 Flow Rate FiO2 09/11/17 06:59 95 High Flow N/C 2.00 09/11/17 05:38 97.6 96 19 122/80 (94) 94 Nasal Cannula 3.00 09/10/17 20:25 101 101/61 (74) 09/10/17 20:00 Nasal Cannula 2.00 09/10/17 19:27 98 Nasal Cannula 3.00 09/10/17 16:16 96.0 89 14 101/71 (81) 96 Nasal Cannula 2.00 09/10/17 14:04 97 Nasal Cannula 3.00 09/10/17 11:12 96 Nasal Cannula 3.00 09/10/17 09:00 Nasal Cannula 3.00 09/10/17 08:15 93 20 103/72 (82) I & O 09/11/17 07:00 Intake Total 4060 ml Output Total 2250 ml Balance 1810 ml Capillary Refill : General Appearance: No Apparent Distress, WD/WN HEENT: Normal ENT Inspection Neck: Full Range of Motion, Normal Inspection Respiratory: No Accessory Muscle Use, No Respiratory Distress, Other (Lungs clear) Results Lab Laboratory Tests 09/10/17 08:21: Glucometer 98 09/10/17 11:35: Glucometer 80 09/10/17 16:04: Glucometer 150H 09/10/17 20:11: Glucometer 179H 09/11/17 05:18: Glucometer 109 09/11/17 05:25: White Blood Count 7.0, Red Blood Count 2.92L, Hemoglobin 8.1L, Hematocrit 26L, Mean Corpuscular Volume 90, Mean Corpuscular Hemoglobin 28, Mean Corpuscular Hemoglobin Concent 31L, Red Cell Distribution Width 17.5H, Platelet Count 177, Mean Platelet Volume 9.5, Neutrophils (%) (Auto) 81H, Lymphocytes (%) (Auto) 7L , Monocytes (%) (Auto) 10, Eosinophils (%) (Auto) 2, Basophils (%) (Auto) 0, Neutrophils # (Auto) 5.7, Lymphocytes # (Auto) 0.5L, Monocytes # (Auto) 0.7, Eosinophils # (Auto) 0.2, Basophils # (Auto) 0.0, Phosphorus Level 3.3, Magnesium Level 2.2, B-Type Natriuretic Peptide 344.4H Microbiology 09/07/17 Blood Culture - Preliminary, Resulted No growth 09/08/17 MRSA Screen - Final, Complete MRSA not isolated 09/06/17 Urine Culture - Final, Complete NO GROWTH Assessment/Plan Assessment/Plan Assess & Plan/Chief Complaint Debility. Acute on chronic renal failure. Atrial fibrillation. Diabetes. BKA left. Sleep apnea obstructive. . 08/25/17. Debility. Acute on chronic renal failure. Atrial fibrillation. Diabetes. BKA. Obstructive sleep apnea. Patient feels of foot is slightly swollen Patient working hard yesterday. . 08/28/17. Debility. Acute and chronic renal failure. Atrial fibrillation. Diabetes Patient gained 5 pounds.. . 08/31/17 debility. Chronic renal failure. Atrial fibrillation. Diabetes Patient lost a little weight. . 09/01/17. Debility. Acute and chronic renal failure. Atrial fibrillation. Diabetes. Patient was 7 pounds. Patient put on Demadex by renal specialist. . 09/04/17. Debility. Chronic renal failure. Atrial fibrillation. Diabetes. Patient lost another 2 pounds. . 09/05/17. Debility. Chronic renal failure. Atrial fibrillation history. Diabetes. Patient lost another 3 pounds. Patient improving. . . Debility. Chronic renal failure. Diabetes. Patient states she didn't lose any weight today. . 09/07/17. Debility. Chronic renal failure. UTI being evaluated. Diabetes. Patient states she doesn't feel well today. . 09/08/17. Debility. Chronic renal failure. Diabetes. Aspiration pneumonia.. Urine culture no growth . Pneumonia. Debility. 09/11/17. Renal insufficiency improved since yesterday. Lungs congestion less Diabetes. Hypoglycemia yesterday Clinical Quality Measures DVT/VTE Risk/Contraindication: Risk Factor Score Per Nursin RFS Level Per Nursing on Admit: 4+=Very High URSULA RENEE DO Sep 11, 2017 07:55
[2017-09-11] MEDS: DULoxetine 30 MG (CYMBALTA) CAP PO SCH (08:27)
[2017-09-11] MEDS: CLOPIDOGREL 75 MG (PLAVIX) TABLET PO SCH (08:27)
[2017-09-11] MEDS: AMIODARONE 200 MG (CORDARONE) TAB PO SCH (08:27)
[2017-09-11] MEDS: APIXABAN 5 MG (ELIQUIS) TABLET PO SCH ×2 (08:27→21:26)
[2017-09-11] MEDS: GABAPENTIN 300 MG (NEURONTIN) CAP PO SCH ×3 (08:27→21:26)
[2017-09-11] MEDS: A & D OINT 60 GM TUBE TOP SCH (08:28)
[2017-09-11] MEDS: CARVEDILOL 3.125 MG (COREG) TABLET PO SCH ×2 (08:28→21:26)
[2017-09-11] MEDS: NYSTATIN CREAM (MYCOSTATIN) 30 GM TUBE TP SCH ×2 (08:29→21:27)
[2017-09-11 08:32] VITALS: BP 106/70
[2017-09-11] MEDS ORDERED: inSUlin DETERMIR 1 UNIT/0.01 ML (LEVEMIR) CHARGE PER UNIT SQ SCH (09:00)
--- NOTE | 2017-09-11 10:30 | Occupational Ther Daily Note ---
OT Current Status-Daily Note Subjective Pt alert, sitting in w/c. No c/o pain. Pt continues to have SOA with activity and decreased activity tolerance due to medical issues. Mental Status/Objective Patient Orientation: Person, Place, Time, Situation Functional [place] Measure 0=Not Assessed/NA 4=Minimal Assistance 1=Total Assistance 5=Supervision or Setup 2=Maximal Assistance 6=Modified [place] 3=Moderate Assistance 7=Complete [place] Attachments: IV, Oxygen ADL-Treatment Pt agrees to therapy, requests a shower. Pt takes increased time to complete tasks due to decreased activity tolerance and SOA requiring lengthy recovery breaks. Pt able to maneuver w/c to bathroom by self. Pt transferred to shower using w/c, shower bench and grabbars with mod A for sit to stand. Pt able to complete bathing using shower bench, grabbar and hand held shower by self. Pt leans side to side to cleans buttocks. After set up, pt is able to don/doff upper body clothing by self. Pt able to don/doff pants over feet, assist to hike pants over hip due to decreased activity tolerance when standing. Assist to don socks and shoes. After therapy, pt sitting in recliner with call light/ phone in reach. All needs met in room. Functional [place] Measure 0=Not Assessed/NA 4=Minimal Assistance 1=Total Assistance 5=Supervision or Setup 2=Maximal Assistance 6=Modified [place] 3=Moderate Assistance 7=Complete IndependenceIRFPAI Quality Coding Scale 6 Independent with activity with or without an assistive device 5 Patient requires set up or clean up by helper. Patient completes activity by themselves 4 Supervision or touching assist (CGA). [place] provide cues , steadying assist 3 The helper provides less than half the effort to complete the activity 2 The helper provides more than half the effort to complete the activity 1 Dependent. The helper does all the effort to complete an activity 7 Patient refused to complete or attempt activity 9 The patient did not perform the activity before the current illness or injury 88 Not attempted due to Medical conditions or safety concerns Grooming (FIM): 6 Oral Hygiene (QC): 6 Bathing (FIM): 6 Shower/Bathe Self (QC): 6 Upper Body (FIM): 5 Upper Body Dressing (QC): 5 Lower Body Dressing (FIM): 3 Lower Body Dressing (QC): 3 On/Off Footwear (QC): 3 Toileting (FIM): 4 Toileting Hygiene (QC): 3 Toilet/Commode Transfer (FIM): 4 Toilet Transfer (QC): 3 Shower Transfer(FIM): 3 OT Short Term Goals Short Term Goals Time Frame: Aug 30, 2017 Bathing(FIM): 5 Lower Body Dressing(FIM): 5 Toileting(FIM): 5 Toilet/Commode Transfer(FIM): 5 Additional Short Term Goals: 1-Demonstrate ADL Tasks, 2-Verbalize Understanding , 3-ImproveStrength/Mahad 1=Demonstrate adherence to instructed precautions during ADL tasks. 2=Patient will verbalize/demonstrate understanding of assistive devices/ modifications for ADL. 3=Patient will improve strength/tolerance for activity to enable patient to perform ADL's. OT Stewardesses Teacher Goals Stewardesses Teacher Goals Time Frame: Sep 08, 2017 Eating (FIM): 7 Eating (QC): 6 Groomin Oral Hygiene (QC): 6 Bathing(FIM): 6 Shower/Bathe Self (QC): 6 Upper Body Dressing(FIM): 6 Upper Body Dressing (QC): 6 Lower Body Dressing(FIM): 6 Lower Body Dressing (QC): 6 On/Off Footwear (QC): 6 Toileting(FIM): 6 Toileting Hygiene (QC): 6 Toilet/Commode Transfer(FIM): 6 Toilet/Commode Transfer (QC): 6 Shower Transfer(FIM): 5 Additional Goals: 1-Demonstrate ADL Tasks, 2-Verbalize Understanding, 3- ImproveStrength/Mahad 1=Demonstrate adherence to instructed precautions during ADL tasks. 2=Patient will verbalize/demonstrate understanding of assistive devices/ modifications for ADL. 3=Patient will improve strength/tolerance for activity to enable patient to perform ADL's. OT Education/Plan Problem List/Assessment Pt would benefit from skilled OT to increase her independence in basic self care to allow her to safely return home with family after long hospitalization Discharge Recommendations Plan/Recommendations: Continue POC Treatment Plan/Plan of Care Patient would benefit from OT for education, treatment and training to promote independence in ADL's, mobility, safety and/or upper extremity function for ADL' s. Plan of Care: ADL Retraining, Functional Mobility, Group Exercise/Act as Ind ( education, exercise, activity tolerance, socialization, funct mobility), UE Funct Exercise/Act, UE Neuromus Re-Ed/Coord Treatment Duration: Sep 08, 2017 Frequency: At least 5 of 7 days/Wk (IRF) Estimated Hrs Per Day: 1.5 hours per day Agreement: Yes Rehab Potential: Fair Time/GCodes Start Time: 08:45 Stop Time: 10:15 Total Time Billed (hr/min): 90 Billed Treatment Time 1 visit-ADL 6 (90 min) ANA HWANG Sep 11, 2017 10:30
[2017-09-11] MEDS: LACTOBACILLUS Acidoph/Bulgar (LACTINEX/FLORANEX) TAB PO SCH ×2 (10:31→16:13)
--- NOTE | 2017-09-11 11:15 | Diagnostic Imaging Report ---
INDICATION: Pneumonia. COMPARISON: 09/09/2017. FINDINGS: There is persistent diffuse airspace disease in the right lung. There is also an unchanged left upper lobe consolidation. There is cardiomegaly. There is no pleural effusion or pneumothorax. The mediastinum is unremarkable. IMPRESSION: Unchanged diffuse airspace disease in the right lung as well as unchanged focal pneumonia in the left upper lobe. Cardiomegaly and some mild venous congestion. Dictated by: Dictated on workstation # [id number]
--- NOTE | 2017-09-11 12:24 | Physical Therapy Daily Note ---
PT Daily Note-Current Subjective Pt sitting in [facility] upon arrival. Pt reports fatigue due to morning OT tx and sickness. Pt agrees to PT. Pain Location: No Pain Reported Mental Status Patient Orientation: Person, Place, Time, Situation Transfers Functional [place] Measure 0=Not Assessed/NA 4=Minimal Assistance 1=Total Assistance 5=Supervision or Setup 2=Maximal Assistance 6=Modified [place] 3=Moderate Assistance 7=Complete IndependenceIRFPAI Quality Coding Scale 6 Independent with activity with or without an assistive device 5 Patient requires set up or clean up by helper. Patient completes activity by themselves 4 Supervision or touching assist (CGA). [place] provide cues , steadying assist 3 The helper provides less than half the effort to complete the activity 2 The helper provides more than half the effort to complete the activity 1 Dependent. The helper does all the effort to complete an activity 7 Patient refused to complete or attempt activity 9 The patient did not perform the activity before the current illness or injury 88 Not attempted due to Medical conditions or safety concerns Supine to/from Sit: 5 Sit to/from Stand: 5 Sit to Lying (QC): 4 Sit to Stand (QC): 5 Weight Bearing Right Lower Extremity: Right Weight Bearing/Tolerated Left Lower Extremity: Left Weight Bearing/Tolerated Gait Training Does the Patient Walk?: Yes Distance (FIM): 1=up to 49 ft Distance: 30' Walk 10 feet (QC): 5 Gait Level of Assist: 5 Gait Persons Needed: 1 Gait Assistive Device: FWW Pt takes short walk to restroom then back to [facility] to rest. Exercises Supine Ex: Ankle pumps, Quad Set, Glut sets, Heel Slides, Straight leg raise, Hip abd/add Supine Reps: 15 Seated Therapy Exercises: Ankle pumps, Long arc quads, Hip flexion, Kicking activity Seated Reps: 15 Treatments Pt completes Breathing Tx with RT at beginning of Tx. Pt completes Seated Ex in [facility] with a few rest breaks. Pt transfers from [facility] to EOB then to Supine with MALTED MILK MIXER assist to lift BLE. Pt completes Supine Ex with several rest breaks due to fatigue, coughing & taking meds given by Nurse. Student Development Dean discusses with MALTED MILK MIXER & pt that pt will stay until pt is finished with IV antibiotics on then discharge. Pt rests before transferring from supine to EOB then to standing using FWW at Mod I. Pt ambulates to restroom then returns to [facility] to rest. Pt orders lunch at end of tx. Pt has all needs met at end of tx, including call light & phone next to pt. Assessment Current Status: Fair Progress Pt fatigues quickly & requires multiple rest breaks during tx. PT Short Term Goals Short Term Goals Time Frame: Aug 30, 2017 Gait (FIM): 2 Gait Distance Comment: 50' Gait Level of Assist: 4 Gait Assistive Device: FWW Wheelchair Distance: 25' PT Tax Preparer Goals Tax Preparer Goals PT Halfway Goals Time Frame: Sep 13, 2017 Transfers (B,C,W/C) (FIM): 6 Sit to Lying (QC): 6 Lying-Sitting on Side/Bed(QC): 6 Sit to Stand (QC): 6 Rollin Roll Left to Right (QC): 6 Chair/[id number]-Xafxh Xfer(QC): 6 Car Transfer (QC): 6 Gait (FIM): 2 Distance: 100' Walk 10 feet (QC): 4 Walk 10ft-Uneven Surface(QC): 4 Walk 50ft with 2 Turns (QC): 4 Gait Level of Assist: 5 Gait Assistive Device: FWW Wheelchair (FIM): 6 Stairs (FIM): 1 # of Steps: 1 1 Step (curb) (QC): 4 Stairs Level Of Assist: 4 PT Plan Problem List Problem List: Activity Tolerance, Functional Strength, Safety, Gait Treatment/Plan Treatment Plan: Continue Plan of Care Treatment Plan: Bed Mobility, Education, Functional Activity Mahad, Functional Strength, Group Therapy, Gait, Safety, Therapeutic Exercise, Transfers Treatment Duration: Sep 13, 2017 Frequency: At least 5 of 7 days/Wk (IRF) Estimated Hrs Per Day: 1.5 hours per day Patient and/or Family Agrees t: Yes Safety Risks/Education Patient Education: Gait Training, Transfer Techniques, Correct Positioning, Safety Issues Teaching Recipient: Patient Teaching Methods: Discussion Response to Teaching: Verbalize Understanding Time/GCodes Time In: 1030 Time Out: 1200 Total Billed Treatment Time: 90 Total Billed Treatment 1, EX x2 (35m) & FA x4 (55m) G Codes Necessary: ALETHEA Hudson MALTED MILK MIXER Sep 11, 2017 12:24
[2017-09-11 17:40] VITALS: BP 129/77
--- NOTE | 2017-09-11 18:15 | PM & R (SOAP) Progress Note ---
Subjective This was a face to face visit with the patient. Date Seen by Provider: Sep 11, 2017 Time Seen by Provider: 18:00 Subjective/Events-last exam Patient was seen in her room this evening Discussed case with RN Appreciate DR Wang and Axel notes and orders.Patient min assist for transfers Review of Systems Pulmonary: Dyspnea Neurological: Weakness vaginal dryness Objective Physician Exam Last Set of Vital Signs Vital Signs Date Time Temp Pulse Resp B/P (MAP) Pulse Ox O2 Delivery O2 Flow Rate FiO2 09/11/17 17:40 97.1 92 18 129/77 (94) 96 Nasal Cannula 2.00 Capillary Refill : I&O Intake and Output 09/11/17 00:00 Intake Total 4000 ml Output Total 1500 ml Balance 2500 ml Intake Oral 1700 ml IV Total 2300 ml Output Urine Total 1500 ml # Voids 2 # Bowel Movements 4 General: Alert, Oriented X3, Cooperative, No Acute Distress HEENT: Atraumatic, PERRLA, EOMI, Mucous Memb Moist/[place] Neck: Supple, No JVD Lungs: Clear to Auscultation Heart: Regular Rate, Other (Irregular rhythm) Abdomen: Normal Bowel Sounds, Soft, No Tenderness Extremities: Other (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 Mild rt cellulitis of the leg) Neuro: Other (generalized weakness) Results Lab Data Laboratory Tests 09/08/17 21:38: Glucometer 152H 09/09/17 05:03: Glucometer 119H 09/09/17 05:57: White Blood Count 10.6, Red Blood Count 2.81L, Hemoglobin 8.0L, Hematocrit 25L, Mean Corpuscular Volume 90, Mean Corpuscular Hemoglobin 29, Mean Corpuscular Hemoglobin Concent 32, Red Cell Distribution Width 17.6H, Platelet Count 167, Mean Platelet Volume 9.6, Neutrophils (%) (Auto) 85H, Lymphocytes (%) (Auto) 5L , Monocytes (%) (Auto) 9, Eosinophils (%) (Auto) 1, Basophils (%) (Auto) 0, Neutrophils # (Auto) 9.0H, Lymphocytes # (Auto) 0.5L, Monocytes # (Auto) 1.0, Eosinophils # (Auto) 0.1, Basophils # (Auto) 0.0, Phosphorus Level 3.2, Magnesium Level 2.1, B-Type Natriuretic Peptide 298.6H 09/09/17 11:01: Glucometer 163H 09/09/17 15:52: Glucometer 103 09/09/17 21:05: Glucometer 110 09/10/17 05:19: Glucometer 55*L 09/10/17 05:46: White Blood Count 9.1, Red Blood Count 2.91L, Hemoglobin 8.3L, Hematocrit 26L, Mean Corpuscular Volume 90, Mean Corpuscular Hemoglobin 29, Mean Corpuscular Hemoglobin Concent 32, Red Cell Distribution Width 17.6H, Platelet Count 172, Mean Platelet Volume 9.3, Neutrophils (%) (Auto) 83H, Lymphocytes (%) (Auto) 5L , Monocytes (%) (Auto) 10, Eosinophils (%) (Auto) 2, Basophils (%) (Auto) 0, Neutrophils # (Auto) 7.5, Lymphocytes # (Auto) 0.5L, Monocytes # (Auto) 0.9, Eosinophils # (Auto) 0.2, Basophils # (Auto) 0.0, Sodium Level 133L, Potassium Level 3.5L, Chloride Level 98, Carbon Dioxide Level 24, Anion Gap 11, Blood Urea Nitrogen 48H, Creatinine 2.64H, Estimat Glomerular Filtration Rate 19, BUN/ Creatinine Ratio 18, Glucose Level 50*L, Calcium Level 8.1L, Phosphorus Level 3.2, Magnesium Level 2.0 09/10/17 05:47: Glucometer 55*L 09/10/17 06:28: Glucometer 82 09/10/17 08:21: Glucometer 98 09/10/17 11:35: Glucometer 80 09/10/17 16:04: Glucometer 150H 09/10/17 20:11: Glucometer 179H 09/11/17 05:18: Glucometer 109 09/11/17 05:25: White Blood Count 7.0, Red Blood Count 2.92L, Hemoglobin 8.1L, Hematocrit 26L, Mean Corpuscular Volume 90, Mean Corpuscular Hemoglobin 28, Mean Corpuscular Hemoglobin Concent 31L, Red Cell Distribution Width 17.5H, Platelet Count 177, Mean Platelet Volume 9.5, Neutrophils (%) (Auto) 81H, Lymphocytes (%) (Auto) 7L , Monocytes (%) (Auto) 10, Eosinophils (%) (Auto) 2, Basophils (%) (Auto) 0, Neutrophils # (Auto) 5.7, Lymphocytes # (Auto) 0.5L, Monocytes # (Auto) 0.7, Eosinophils # (Auto) 0.2, Basophils # (Auto) 0.0, Phosphorus Level 3.3, Magnesium Level 2.2, B-Type Natriuretic Peptide 344.4H 09/11/17 11:27: Glucometer 171H 09/11/17 15:33: Glucometer 203H Microbiology 09/07/17 Blood Culture - Preliminary, Resulted No growth 09/11/17 C. 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 Services Counselor has adjusted Prostheis to accomadate Type 2 DM E coli UTI treated residual limb scabbing healing YUDY HTN controlled A FIB controlled Acute on chronic diastolic dysfunction meds being adjusted Tobaccoism abstaining Plan Continue PT/OT Discharge postponed due to medical issues as per above Discussed with SW last week Next Team conference 09-13-17 F/U with DR tomas and Sunni (1) Renal failure (ARF), acute on chronic Qualifiers: Qualified Codes: N17.9 - Acute kidney failure, unspecified; N18.4 - Chronic kidney disease, stage 4 (severe) Status: Acute Co-Morbidities that are continuing to impact the rehab process: (include details ) IRMA ESPINOZA MD Sep 11, 2017 18:15
[2017-09-11 21:19] VITALS: BP 123/78
[2017-09-11] MEDS: SIMvastatin 20 MG (ZOCOR) TAB PO SCH (21:26)
[2017-09-11] MEDS: inSUlin DETERMIR 1 UNIT/0.01 ML (LEVEMIR) CHARGE PER UNIT SQ SCH (21:26)
[2017-09-11] MEDS: ALPRAZolam 0.5 MG (XANAX) TAB PO PRN (22:40)
[2017-09-12] MEDS: PIPERACILLIN/TAZOBACTAM 3.375 GM in D5W 100 ML IVPB 100 ML IV SCH (01:39)
[2017-09-12 05:13] VITALS: BP 124/79
[2017-09-12] MEDS: inSUlin ASPART (NovoLOG) 1 UNIT/0.01 ML (CHARGE PER UNIT) SC SCH ×4 (05:27→22:42)
--- NOTE | 2017-09-12 06:04 | Pulmonary Progress Note ---
Subjective Time Seen by Provider: 06:04 Subjective/Events-last exam No complications noted. Sepsis Event Evaluation Height, Weight, BMI Height: 5'6.00" Weight: 273lbs. 14.4oz. 124.683753ab; 43.0 BMI Method: Exam Exam Vital Signs Date Time Temp Pulse Resp B/P (MAP) Pulse Ox O2 Delivery O2 Flow Rate FiO2 09/12/17 05:13 96.9 86 20 124/79 (94) 94 Nasal Cannula 2.00 09/11/17 21:56 Nasal Cannula 2.00 09/11/17 21:19 96 123/78 (93) 09/11/17 19:47 95 Nasal Cannula 1.50 09/11/17 19:03 Nasal Cannula 09/11/17 17:40 97.1 92 18 129/77 (94) 96 Nasal Cannula 2.00 09/11/17 13:37 93 Nasal Cannula 1.50 09/11/17 10:44 97 Nasal Cannula 2.00 09/11/17 08:41 Nasal Cannula 2.00 09/11/17 08:32 88 106/70 (82) 09/11/17 06:59 95 High Flow N/C 2.00 I & O 09/12/17 07:00 Intake Total 2316 ml Output Total 3250 ml Balance -934 ml Height & Weight Height: 5'6.00" Weight: 273lbs. 14.4oz. 124.065230gi; 43.0 BMI Method: General Appearance: No Apparent Distress, WD/WN HEENT: Normal ENT Inspection Neck: Full Range of Motion, Normal Inspection Respiratory: No Accessory Muscle Use, No Respiratory Distress, Other (Lungs clear) Cardiovascular: No Edema, No Gallop, No Murmur, Irregularly Irregular Gastrointestinal: non tender, soft Extremity: No Pedal Edema Neurologic/Psychiatric: Alert, Oriented x3, No Motor/Sensory Deficits, Normal Mood/Affect Skin: Normal Color, Warm/Dry Results Lab Laboratory Tests 09/11/17 05:25 Assessment/Plan Assessment/Plan pneumonia with hypoxia -Oxygen -- check home qualification testing - SVNs, IS - zosyn- change to Augmentin x 3 days then D/C - Muñoz cultures negative -repeat labs pending -PT will need a repeat CXR 6-8 wks after discharge. If infiltrates persist will need CT of chest. -I will have her f/u with me in 2-3 wks. PT is ok from pulmonary standpoint for discharge. UTI Diarrhea - probably from meds/Abx - Cdiff - negative Morbid obesity debility with Left BKA -PT/OT Afib - controlled Labs and radiology reviewed 232 CRISTOBAL STEVEN DO Sep 12, 2017 06:04
[2017-09-12] MEDS: LACTOBACILLUS Acidoph/Bulgar (LACTINEX/FLORANEX) TAB PO SCH ×3 (06:22→16:34)
[2017-09-12] MEDS: RT-ALBUTEROL/IPRATROPIUM 3 ML (DUONEB) VIAL INH SCH ×4 (06:22→19:02)
[2017-09-12] MEDS: CALCIUM ACETATE 667 MG CAP (PHOSLO) PO SCH ×3 (06:22→16:34)
[2017-09-12 06:28] LABS: BASOPHILS # (AUTO) 0.1 10^3/uL (0.0-0.1); BASOPHILS % (AUTO) 1 % (0-10); EOSINOPHILS # (AUTO) 0.3 10^3/uL (0.0-0.3); EOSINOPHILS % (AUTO) 3 % (0-10); HEMATOCRIT 25 % (35-52); HEMOGLOBIN 7.9 G/DL (11.5-16.0); LYMPHOCYTES # (AUTO) 0.6 X 10^3 (1.0-4.0); LYMPHOCYTES % (AUTO) 8 % (12-44); MEAN CORPUSCULAR HEMOGLOBIN 28 PG (25-34); MEAN CORPUSCULAR HGB CONC 31 G/DL (32-36); MEAN CORPUSCULAR VOLUME 90 FL (80-99); MEAN PLATELET VOLUME 9.3 FL (7.4-10.4); MONOCYTES # (AUTO) 0.8 X 10^3 (0.0-1.0); MONOCYTES % (AUTO) 9 % (0-12); NEUTROPHILS # (AUTO) 6.3 X 10^3 (1.8-7.8); NEUTROPHILS % (AUTO) 79 % (42-75); PLATELET COUNT 228 10^3/uL (130-400); RED CELL DISTRIBUTION WIDTH 17.2 % (10.0-14.5)
[2017-09-12] MEDS: AUGMENTIN 875 MG TAB (AMOXICILLIN/CLAVULANATE) PO SCH ×2 (06:40→16:34)
[2017-09-12 06:46] LABS: CALCIUM 8.4 MG/DL (8.5-10.1); CREATININE SERUM 2.33 MG/DL (0.60-1.30); PHOSPHORUS 2.7 MG/DL (2.3-4.7); POTASSIUM 3.8 MMOL/L (3.6-5.0)
--- NOTE | 2017-09-12 08:21 | Progress Note (SOAP) ---
Subjective Time Seen by Provider: 08:15 Subjective/Events-last exam Patient clinically doing better. Patient feeling better. GFR came back to 22. Patient feels bloated. Chest x-ray yesterday the same. Patient did aspirate. Pulmonology set okay for discharge on his heart Objective Exam Vital Signs Date Time Temp Pulse Resp B/P (MAP) Pulse Ox O2 Delivery O2 Flow Rate FiO2 09/12/17 06:50 1 93.00 09/12/17 06:27 89 Nasal Cannula 1.00 09/12/17 05:13 96.9 86 20 124/79 (94) 94 Nasal Cannula 2.00 09/11/17 21:56 Nasal Cannula 2.00 09/11/17 21:19 96 123/78 (93) 09/11/17 19:47 95 Nasal Cannula 1.50 09/11/17 19:03 Nasal Cannula 09/11/17 17:40 97.1 92 18 129/77 (94) 96 Nasal Cannula 2.00 09/11/17 13:37 93 Nasal Cannula 1.50 09/11/17 10:44 97 Nasal Cannula 2.00 09/11/17 08:41 Nasal Cannula 2.00 09/11/17 08:32 88 106/70 (82) I & O 09/12/17 07:00 Intake Total 2316 ml Output Total 3250 ml Balance -934 ml Capillary Refill : General Appearance: No Apparent Distress, WD/WN Neck: Normal Inspection Respiratory: No Accessory Muscle Use, No Respiratory Distress Results Lab Laboratory Tests 09/12/17 06:15 Laboratory Tests 09/11/17 11:27: Glucometer 171H 09/11/17 15:33: Glucometer 203H 09/11/17 21:14: Glucometer 207H 09/12/17 05:23: Glucometer 98 09/12/17 06:15: White Blood Count 8.0, Red Blood Count 2.80L, Hemoglobin 7.9L, Hematocrit 25L, Mean Corpuscular Volume 90, Mean Corpuscular Hemoglobin 28, Mean Corpuscular Hemoglobin Concent 31L, Red Cell Distribution Width 17.2H, Platelet Count 228, Mean Platelet Volume 9.3, Neutrophils (%) (Auto) 79H, Lymphocytes (%) (Auto) 8L , Monocytes (%) (Auto) 9, Eosinophils (%) (Auto) 3, Basophils (%) (Auto) 1, Neutrophils # (Auto) 6.3, Lymphocytes # (Auto) 0.6L, Monocytes # (Auto) 0.8, Eosinophils # (Auto) 0.3, Basophils # (Auto) 0.1, Sodium Level 139, Potassium Level 3.8, Chloride Level 103, Carbon Dioxide Level 27, Anion Gap 9, Blood Urea Nitrogen 35H, Creatinine 2.33H, Estimat Glomerular Filtration Rate 22, BUN/ Creatinine Ratio 15, Glucose Level 80, Calcium Level 8.4L, Phosphorus Level 2.7 , Magnesium Level 2.0 Microbiology 09/07/17 Blood Culture - Preliminary, Resulted No growth 09/11/17 C. difficile GDH Antigen & Toxins - Final, Complete 09/08/17 MRSA Screen - Final, Complete MRSA not isolated 09/06/17 Urine Culture - Final, Complete NO GROWTH Assessment/Plan Assessment/Plan Assess & Plan/Chief Complaint Debility. Acute on chronic renal failure. Atrial fibrillation. Diabetes. BKA left. Sleep apnea obstructive. . 08/25/17. Debility. Acute on chronic renal failure. Atrial fibrillation. Diabetes. BKA. Obstructive sleep apnea. Patient feels of foot is slightly swollen Patient working hard yesterday. . 08/28/17. Debility. Acute and chronic renal failure. Atrial fibrillation. Diabetes Patient gained 5 pounds.. . 08/31/17 debility. Chronic renal failure. Atrial fibrillation. Diabetes Patient lost a little weight. . 09/01/17. Debility. Acute and chronic renal failure. Atrial fibrillation. Diabetes. Patient was 7 pounds. Patient put on Demadex by renal specialist. . 09/04/17. Debility. Chronic renal failure. Atrial fibrillation. Diabetes. Patient lost another 2 pounds. . 09/05/17. Debility. Chronic renal failure. Atrial fibrillation history. Diabetes. Patient lost another 3 pounds. Patient improving. . . Debility. Chronic renal failure. Diabetes. Patient states she didn't lose any weight today. . 09/07/17. Debility. Chronic renal failure. UTI being evaluated. Diabetes. Patient states she doesn't feel well today. . 09/08/17. Debility. Chronic renal failure. Diabetes. Aspiration pneumonia.. Urine culture no growth . Pneumonia. Debility. 09/11/17. Renal insufficiency improved since yesterday. Lungs congestion less Diabetes. Hypoglycemia yesterday. . 09/12/17. Aspiration pneumonia. Renal insufficiency improved. Chest x-ray the same. Diabetes. Patient feels bloated. Demadex ordered today Clinical Quality Measures DVT/VTE Risk/Contraindication: Risk Factor Score Per Nursin RFS Level Per Nursing on Admit: 4+=Very High URSULA RENEE DO Sep 12, 2017 08:21
[2017-09-12] MEDS: DULoxetine 30 MG (CYMBALTA) CAP PO SCH (08:43)
[2017-09-12] MEDS: GABAPENTIN 300 MG (NEURONTIN) CAP PO SCH ×3 (08:43→21:31)
[2017-09-12] MEDS: APIXABAN 5 MG (ELIQUIS) TABLET PO SCH ×2 (08:43→21:31)
[2017-09-12] MEDS: AMIODARONE 200 MG (CORDARONE) TAB PO SCH (08:43)
[2017-09-12] MEDS: CLOPIDOGREL 75 MG (PLAVIX) TABLET PO SCH (08:43)
--- NOTE | 2017-09-12 08:43 | PM & R (SOAP) Progress Note ---
Subjective This was a face to face visit with the patient. Date Seen by Provider: Sep 12, 2017 Time Seen by Provider: 07:50 Subjective/Events-last exam Patient was seen in her room this AM Patient SBA for transfers Discussed case with RN Appreciate DR Cavazos note and orders Patient down to 1 liter of 02 supplement by n/c. Review of Systems vaginal dryness Objective Physician Exam Last Set of Vital Signs Vital Signs Date Time Temp Pulse Resp B/P (MAP) Pulse Ox O2 Delivery O2 Flow Rate FiO2 09/12/17 06:50 1 93.00 09/12/17 06:27 Nasal Cannula 09/12/17 05:13 96.9 86 20 124/79 (94) Capillary Refill : I&O Intake and Output 09/12/17 00:00 Intake Total 2562 ml Output Total 3450 ml Balance -888 ml Intake Oral 1262 ml IV Total 1300 ml Output Urine Total 3450 ml # Bowel Movements 2 General: Alert, Oriented X3, Cooperative, No Acute Distress HEENT: Atraumatic, PERRLA, EOMI, Mucous Memb Moist/[place] Neck: Supple, No JVD Lungs: Clear to Auscultation Heart: Regular Rate, Other (Irregular rhythm) Abdomen: Normal Bowel Sounds, Soft, No Tenderness Extremities: Other (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 Mild rt cellulitis of the leg) Neuro: Other (generalized weakness) Results Lab Data Laboratory Tests 09/09/17 11:01: Glucometer 163H 09/09/17 15:52: Glucometer 103 09/09/17 21:05: Glucometer 110 09/10/17 05:19: Glucometer 55*L 09/10/17 05:46: White Blood Count 9.1, Red Blood Count 2.91L, Hemoglobin 8.3L, Hematocrit 26L, Mean Corpuscular Volume 90, Mean Corpuscular Hemoglobin 29, Mean Corpuscular Hemoglobin Concent 32, Red Cell Distribution Width 17.6H, Platelet Count 172, Mean Platelet Volume 9.3, Neutrophils (%) (Auto) 83H, Lymphocytes (%) (Auto) 5L , Monocytes (%) (Auto) 10, Eosinophils (%) (Auto) 2, Basophils (%) (Auto) 0, Neutrophils # (Auto) 7.5, Lymphocytes # (Auto) 0.5L, Monocytes # (Auto) 0.9, Eosinophils # (Auto) 0.2, Basophils # (Auto) 0.0, Sodium Level 133L, Potassium Level 3.5L, Chloride Level 98, Carbon Dioxide Level 24, Anion Gap 11, Blood Urea Nitrogen 48H, Creatinine 2.64H, Estimat Glomerular Filtration Rate 19, BUN/ Creatinine Ratio 18, Glucose Level 50*L, Calcium Level 8.1L, Phosphorus Level 3.2, Magnesium Level 2.0 09/10/17 05:47: Glucometer 55*L 09/10/17 06:28: Glucometer 82 09/10/17 08:21: Glucometer 98 09/10/17 11:35: Glucometer 80 09/10/17 16:04: Glucometer 150H 09/10/17 20:11: Glucometer 179H 09/11/17 05:18: Glucometer 109 09/11/17 05:25: White Blood Count 7.0, Red Blood Count 2.92L, Hemoglobin 8.1L, Hematocrit 26L, Mean Corpuscular Volume 90, Mean Corpuscular Hemoglobin 28, Mean Corpuscular Hemoglobin Concent 31L, Red Cell Distribution Width 17.5H, Platelet Count 177, Mean Platelet Volume 9.5, Neutrophils (%) (Auto) 81H, Lymphocytes (%) (Auto) 7L , Monocytes (%) (Auto) 10, Eosinophils (%) (Auto) 2, Basophils (%) (Auto) 0, Neutrophils # (Auto) 5.7, Lymphocytes # (Auto) 0.5L, Monocytes # (Auto) 0.7, Eosinophils # (Auto) 0.2, Basophils # (Auto) 0.0, Phosphorus Level 3.3, Magnesium Level 2.2, B-Type Natriuretic Peptide 344.4H 09/11/17 11:27: Glucometer 171H 09/11/17 15:33: Glucometer 203H 09/11/17 21:14: Glucometer 207H 09/12/17 05:23: Glucometer 98 09/12/17 06:15: White Blood Count 8.0, Red Blood Count 2.80L, Hemoglobin 7.9L, Hematocrit 25L, Mean Corpuscular Volume 90, Mean Corpuscular Hemoglobin 28, Mean Corpuscular Hemoglobin Concent 31L, Red Cell Distribution Width 17.2H, Platelet Count 228, Mean Platelet Volume 9.3, Neutrophils (%) (Auto) 79H, Lymphocytes (%) (Auto) 8L , Monocytes (%) (Auto) 9, Eosinophils (%) (Auto) 3, Basophils (%) (Auto) 1, Neutrophils # (Auto) 6.3, Lymphocytes # (Auto) 0.6L, Monocytes # (Auto) 0.8, Eosinophils # (Auto) 0.3, Basophils # (Auto) 0.1, Sodium Level 139, Potassium Level 3.8, Chloride Level 103, Carbon Dioxide Level 27, Anion Gap 9, Blood Urea Nitrogen 35H, Creatinine 2.33H, Estimat Glomerular Filtration Rate 22, BUN/ Creatinine Ratio 15, Glucose Level 80, Calcium Level 8.4L, Phosphorus Level 2.7 , Magnesium Level 2.0 Microbiology 09/07/17 Blood Culture - Preliminary, Resulted No growth 09/11/17 C. 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
[2017-09-12] MEDS: A & D OINT 60 GM TUBE TOP SCH (08:44)
[2017-09-12] MEDS: NYSTATIN CREAM (MYCOSTATIN) 30 GM TUBE TP SCH ×2 (08:45→21:35)
[2017-09-12 08:46] VITALS: BP 107/71
[2017-09-12] MEDS: CARVEDILOL 3.125 MG (COREG) TABLET PO SCH ×2 (08:52→21:32)
[2017-09-12] MEDS ORDERED: TORSEMIDE 20 MG (DEMADEX) TAB PO ONE (09:00)
--- NOTE | 2017-09-12 09:55 | Occupational Ther Daily Note ---
OT Current Status-Daily Note Subjective Pt seen in room, up in w/c, agreeable to OT. Did not want to shower since she took one yesterday. No pain mentioned. Appearance Alert, cooperative, looks fatigued Mental Status/Objective Functional [place] Measure 0=Not Assessed/NA 4=Minimal Assistance 1=Total Assistance 5=Supervision or Setup 2=Maximal Assistance 6=Modified [place] 3=Moderate Assistance 7=Complete [place] ADL-Treatment Pt was concerned that her prosthesis might not fit her due to edema. She was able to get it on and dressed her lower body with SBA when standing to pull pants up and help putting shoe on R food due to edema. She propelled w/c to bathroom and brushed teeth/combed hair independently. All ADLs took longer than usual. O2 in place at 1L/min. Functional [place] Measure 0=Not Assessed/NA 4=Minimal Assistance 1=Total Assistance 5=Supervision or Setup 2=Maximal Assistance 6=Modified [place] 3=Moderate Assistance 7=Complete IndependenceIRFPAI Quality Coding Scale 6 Independent with activity with or without an assistive device 5 Patient requires set up or clean up by helper. Patient completes activity by themselves 4 Supervision or touching assist (CGA). [place] provide cues , steadying assist 3 The helper provides less than half the effort to complete the activity 2 The helper provides more than half the effort to complete the activity 1 Dependent. The helper does all the effort to complete an activity 7 Patient refused to complete or attempt activity 9 The patient did not perform the activity before the current illness or injury 88 Not attempted due to Medical conditions or safety concerns Grooming (FIM): 7 Lower Body Dressing (FIM): 4 (Help with shoe) Other Treatment Pt propelled w/c to gym and did 15 minutes bilat UE exercise with arm bike set at 20-25W resistance, taking a couple brief recovery breaks due to fatigue. She also did 10-15 reps bilat UE exercise with exercise bar and 2# weight (about 3.5 pounds overall), with pt educ on the different exercises. To strengthen arms to help with transfers and ADLs. Pt propelled herself back to room and was left up in w/c, all needs met, O2 in place. Education OT Patient Education: Exercise program, Progress toward Goal/Update tx plan, Purpose of tx/functional activities, Transfer techniques Teaching Recipient: Patient Teaching Methods: Discussion Response to Teaching: Verbalize Understanding, Return Demonstration OT Short Term Goals Short Term Goals Time Frame: Aug 30, 2017 Bathing(FIM): 5 Lower Body Dressing(FIM): 5 Toileting(FIM): 5 Toilet/Commode Transfer(FIM): 5 Additional Short Term Goals: 1-Demonstrate ADL Tasks, 2-Verbalize Understanding , 3-ImproveStrength/Mahad 1=Demonstrate adherence to instructed precautions during ADL tasks. 2=Patient will verbalize/demonstrate understanding of assistive devices/ modifications for ADL. 3=Patient will improve strength/tolerance for activity to enable patient to perform ADL's. OT Senior Care Goals Senior Tax Manager Goals Time Frame: Sep 08, 2017 Eating (FIM): 7 Eating (QC): 6 Groomin Oral Hygiene (QC): 6 Bathing(FIM): 6 Shower/Bathe Self (QC): 6 Upper Body Dressing(FIM): 6 Upper Body Dressing (QC): 6 Lower Body Dressing(FIM): 6 Lower Body Dressing (QC): 6 On/Off Footwear (QC): 6 Toileting(FIM): 6 Toileting Hygiene (QC): 6 Toilet/Commode Transfer(FIM): 6 Toilet/Commode Transfer (QC): 6 Shower Transfer(FIM): 5 Additional Goals: 1-Demonstrate ADL Tasks, 2-Verbalize Understanding, 3- ImproveStrength/Mahad 1=Demonstrate adherence to instructed precautions during ADL tasks. 2=Patient will verbalize/demonstrate understanding of assistive devices/ modifications for ADL. 3=Patient will improve strength/tolerance for activity to enable patient to perform ADL's. OT Education/Plan Problem List/Assessment Pt would benefit from skilled OT to increase her independence in basic self care to allow her to safely return home with family after long hospitalization Discharge Recommendations Plan/Recommendations: Continue POC Treatment Plan/Plan of Care Patient would benefit from OT for education, treatment and training to promote independence in ADL's, mobility, safety and/or upper extremity function for ADL' s. Plan of Care: ADL Retraining, Functional Mobility, Group Exercise/Act as Ind ( education, exercise, activity tolerance, socialization, funct mobility), UE Funct Exercise/Act, UE Neuromus Re-Ed/Coord Treatment Duration: Sep 08, 2017 Frequency: At least 5 of 7 days/Wk (IRF) Estimated Hrs Per Day: 1.5 hours per day Agreement: Yes Rehab Potential: Fair Time/GCodes Start Time: 08:30 Stop Time: 09:30 Total Time Billed (hr/min): 60 Billed Treatment Time visit, 30 minutes ADL, 30 minutes exercise POLLY HELTON OT Sep 12, 2017 09:55
--- NOTE | 2017-09-12 14:00 | Physical Therapy Daily Note ---
PT Daily Note-Current Subjective Pt. agrees to Rx. States she is tired. Pain Numeric Pain Scale: 0-No Pain Mental Status Patient Orientation: Normal For Age Attachments: Other-See Comments (prosthesis) Transfers Functional [place] Measure 0=Not Assessed/NA 4=Minimal Assistance 1=Total Assistance 5=Supervision or Setup 2=Maximal Assistance 6=Modified [place] 3=Moderate Assistance 7=Complete IndependenceIRFPAI Quality Coding Scale 6 Independent with activity with or without an assistive device 5 Patient requires set up or clean up by helper. Patient completes activity by themselves 4 Supervision or touching assist (CGA). [place] provide cues , steadying assist 3 The helper provides less than half the effort to complete the activity 2 The helper provides more than half the effort to complete the activity 1 Dependent. The helper does all the effort to complete an activity 7 Patient refused to complete or attempt activity 9 The patient did not perform the activity before the current illness or injury 88 Not attempted due to Medical conditions or safety concerns Transfers (B, C, W/C) (FIM): 5 Scootin Rollin Supine to/from Sit: 5 Sit to/from Stand: 5 Bed to/from Chair: 5 Weight Bearing Right Lower Extremity: Right Weight Bearing/Tolerated Left Lower Extremity: Left Weight Bearing/Tolerated Gait Training Does the Patient Walk?: Yes Gait (FIM): 2 Distance (FIM): 9=617-41 ft (,55,45,20) Gait Level of Assist: 4 Gait Persons Needed: 1 Gait Assistive Device: FWW instructed in managing O2 tubing during gait, ambulation to bathroom, simulated entry to her own bathroom at home which is very narrow. Pt. will need to hold to counter and walk sideways at home pt. did this at parallel bars with SBA, slow no LOB Wheelchair Training Does the Pt Use a Wheelchair?: Yes Wheelchair (FIM): 5 Wheelchair Distance: 3=150 ft Type of Wheelchair: Manual Exercises Supine Ex: Bridging, Ankle pumps, Quad Set, Rolling, Glut sets, Heel Slides, Short Arc Quads, Scooting, Straight leg raise, Hip abd/add Supine Reps: 15 Seated Therapy Exercises: Ankle pumps, Sit to stand, Long arc quads, Hip flexion, Hip abd/add Seated Reps: 12 (x2) NuStep Minutes: 10 NuStep Workload: 3 Assessment Current Status: Good Progress fatigued with Rx, audible crackles in lungs, O2 sats stayed > 90% with Rx PT Short Term Goals Short Term Goals Time Frame: Aug 30, 2017 Gait (FIM): 2 Gait Distance Comment: 50' Gait Level of Assist: 4 Gait Assistive Device: FWW Wheelchair Distance: 25' PT Food Service Order Clerk Goals Custodial Goals PT Food Service Order Clerk Goals Time Frame: Sep 13, 2017 Transfers (B,C,W/C) (FIM): 6 Sit to Lying (QC): 6 Lying-Sitting on Side/Bed(QC): 6 Sit to Stand (QC): 6 Rollin Roll Left to Right (QC): 6 Chair/[id number] Xfer(QC): 6 Car Transfer (QC): 6 Gait (FIM): 2 Distance: 100' Walk 10 feet (QC): 4 Walk 10ft-Uneven Surface(QC): 4 Walk 50ft with 2 Turns (QC): 4 Gait Level of Assist: 5 Gait Assistive Device: FWW Wheelchair (FIM): 6 Stairs (FIM): 1 # of Steps: 1 1 Step (curb) (QC): 4 Stairs Level Of Assist: 4 PT Plan Treatment/Plan Treatment Plan: Continue Plan of Care Treatment Plan: Bed Mobility, Education, Functional Activity Mahad, Functional Strength, Group Therapy, Gait, Safety, Therapeutic Exercise, Transfers Treatment Duration: Sep 13, 2017 Frequency: At least 5 of 7 days/Wk (IRF) Estimated Hrs Per Day: 1.5 hours per day Patient and/or Family Agrees t: Yes Safety Risks/Education Patient Education: Gait Training, Transfer Techniques, Correct Positioning, W/ C Management, Disease Process, Safety Issues Teaching Recipient: Patient Teaching Methods: Demonstration, Discussion Response to Teaching: Return Demonstration, Reinforcement Needed Time/GCodes Time In: 1100 (1330) Time Out: 1200 (1400) Total Billed Treatment Time: 60 (30) Total Billed Treatment 1,FA30,EX30,GT30 G Codes Necessary: MARINO Roca MAILER APPRENTICE Sep 12, 2017 14:00
--- NOTE | 2017-09-12 14:15 | Occupational Ther Daily Note ---
OT Current Status-Daily Note Subjective Pt seen in room, up in w/c, agreeable to OT. No pain mentioned. Mental Status/Objective Functional [place] Measure 0=Not Assessed/NA 4=Minimal Assistance 1=Total Assistance 5=Supervision or Setup 2=Maximal Assistance 6=Modified [place] 3=Moderate Assistance 7=Complete [place] ADL-Treatment Pt positioned w/c and walked into bathroom with SBA, FWW, to toilet. She was able to get on/off BSC over toilet without assistance and managed clothing and hygiene herself. She walked to sink to wash hands and then requested w/c, stating that, "I'm out of leg". She was transported to gym and did graded clothespins and arc activity with 1# weight on each arm, to strengthen arms to help with ADLs and transfers. Legs too fatigued to work on standing tasks. Care transferred to PT. O2 in place. Functional [place] Measure 0=Not Assessed/NA 4=Minimal Assistance 1=Total Assistance 5=Supervision or Setup 2=Maximal Assistance 6=Modified [place] 3=Moderate Assistance 7=Complete IndependenceIRFPAI Quality Coding Scale 6 Independent with activity with or without an assistive device 5 Patient requires set up or clean up by helper. Patient completes activity by themselves 4 Supervision or touching assist (CGA). [place] provide cues , steadying assist 3 The helper provides less than half the effort to complete the activity 2 The helper provides more than half the effort to complete the activity 1 Dependent. The helper does all the effort to complete an activity 7 Patient refused to complete or attempt activity 9 The patient did not perform the activity before the current illness or injury 88 Not attempted due to Medical conditions or safety concerns Grooming (FIM): 5 (SBA standing at sink) Toileting (FIM): 6 Toilet/Commode Transfer (FIM): 6 Education OT Patient Education: Progress toward Goal/Update tx plan, Purpose of tx/ functional activities Teaching Recipient: Patient Teaching Methods: Discussion Response to Teaching: Verbalize Understanding OT Short Term Goals Short Term Goals Time Frame: Aug 30, 2017 Bathing(FIM): 5 Lower Body Dressing(FIM): 5 Toileting(FIM): 5 Toilet/Commode Transfer(FIM): 5 Additional Short Term Goals: 1-Demonstrate ADL Tasks, 2-Verbalize Understanding , 3-ImproveStrength/Mahad 1=Demonstrate adherence to instructed precautions during ADL tasks. 2=Patient will verbalize/demonstrate understanding of assistive devices/ modifications for ADL. 3=Patient will improve strength/tolerance for activity to enable patient to perform ADL's. OT [facility] Goals Solar Designer Goals Time Frame: Sep 08, 2017 Eating (FIM): 7 Eating (QC): 6 Groomin Oral Hygiene (QC): 6 Bathing(FIM): 6 Shower/Bathe Self (QC): 6 Upper Body Dressing(FIM): 6 Upper Body Dressing (QC): 6 Lower Body Dressing(FIM): 6 Lower Body Dressing (QC): 6 On/Off Footwear (QC): 6 Toileting(FIM): 6 Toileting Hygiene (QC): 6 Toilet/Commode Transfer(FIM): 6 Toilet/Commode Transfer (QC): 6 Shower Transfer(FIM): 5 Additional Goals: 1-Demonstrate ADL Tasks, 2-Verbalize Understanding, 3- ImproveStrength/Mahad 1=Demonstrate adherence to instructed precautions during ADL tasks. 2=Patient will verbalize/demonstrate understanding of assistive devices/ modifications for ADL. 3=Patient will improve strength/tolerance for activity to enable patient to perform ADL's. OT Education/Plan Problem List/Assessment Pt would benefit from skilled OT to increase her independence in basic self care to allow her to safely return home with family after long hospitalization Discharge Recommendations Plan/Recommendations: Continue POC Treatment Plan/Plan of Care Patient would benefit from OT for education, treatment and training to promote independence in ADL's, mobility, safety and/or upper extremity function for ADL' s. Plan of Care: ADL Retraining, Functional Mobility, Group Exercise/Act as Ind ( education, exercise, activity tolerance, socialization, funct mobility), UE Funct Exercise/Act, UE Neuromus Re-Ed/Coord Treatment Duration: Sep 08, 2017 Frequency: At least 5 of 7 days/Wk (IRF) Estimated Hrs Per Day: 1.5 hours per day Agreement: Yes Rehab Potential: Fair Time/GCodes Start Time: 13:00 Stop Time: 13:30 Total Time Billed (hr/min): 30 Billed Treatment Time visit, 10 minutes ADL, 20 minutes exercise POLLY HELTON OT Sep 12, 2017 14:15
[2017-09-12 16:13] VITALS: BP 118/77
[2017-09-12] MEDS: ALPRAZolam 0.5 MG (XANAX) TAB PO PRN (21:31)
[2017-09-12] MEDS: SIMvastatin 20 MG (ZOCOR) TAB PO SCH (21:32)
[2017-09-12 21:33] VITALS: BP 120/65
[2017-09-12] MEDS: inSUlin DETERMIR 1 UNIT/0.01 ML (LEVEMIR) CHARGE PER UNIT SQ SCH (22:42)
[2017-09-13] MEDS: inSUlin ASPART (NovoLOG) 1 UNIT/0.01 ML (CHARGE PER UNIT) SC SCH ×4 (05:43→21:54)
[2017-09-13 06:00] VITALS: BP 121/79
[2017-09-13 06:01] LABS: BASOPHILS # (AUTO) 0.1 10^3/uL (0.0-0.1); BASOPHILS % (AUTO) 1 % (0-10); EOSINOPHILS # (AUTO) 0.2 10^3/uL (0.0-0.3); EOSINOPHILS % (AUTO) 3 % (0-10); HEMATOCRIT 25 % (35-52); HEMOGLOBIN 7.5 G/DL (11.5-16.0); LYMPHOCYTES % (AUTO) 14 % (12-44); MEAN CORPUSCULAR HEMOGLOBIN 27 PG (25-34); MEAN CORPUSCULAR HGB CONC 30 G/DL (32-36); MEAN CORPUSCULAR VOLUME 90 FL (80-99); MONOCYTES # (AUTO) 0.6 X 10^3 (0.0-1.0); MONOCYTES % (AUTO) 9 % (0-12); NEUTROPHILS # (AUTO) 5.3 X 10^3 (1.8-7.8); NEUTROPHILS % (AUTO) 73 % (42-75); PLATELET COUNT 277 10^3/uL (130-400); RED BLOOD COUNT 2.76 10^6/uL (4.35-5.85); RED CELL DISTRIBUTION WIDTH 17.5 % (10.0-14.5); WHITE BLOOD COUNT 7.2 10^3/uL (4.3-11.0)
[2017-09-13 06:23] LABS: CREATININE SERUM 2.19 MG/DL (0.60-1.30); MAGNESIUM 1.9 MG/DL (1.8-2.4); PHOSPHORUS 2.8 MG/DL (2.3-4.7); POTASSIUM 3.7 MMOL/L (3.6-5.0)
[2017-09-13] MEDS: AUGMENTIN 875 MG TAB (AMOXICILLIN/CLAVULANATE) PO SCH ×2 (06:43→16:46)
[2017-09-13] MEDS: LACTOBACILLUS Acidoph/Bulgar (LACTINEX/FLORANEX) TAB PO SCH ×3 (06:43→16:46)
[2017-09-13] MEDS: CALCIUM ACETATE 667 MG CAP (PHOSLO) PO SCH ×3 (06:44→16:46)
[2017-09-13] MEDS: RT-ALBUTEROL/IPRATROPIUM 3 ML (DUONEB) VIAL INH SCH ×4 (07:14→18:17)
--- NOTE | 2017-09-13 07:19 | Pulmonary Progress Note ---
Subjective Time Seen by Provider: 13:20 Subjective/Events-last exam No complications noted. Sepsis Event Evaluation Height, Weight, BMI Height: 5'6.00" Weight: 276lbs. 4.0oz. [id number]; 43.0 BMI Method: Exam Exam Vital Signs Date Time Temp Pulse Resp B/P (MAP) Pulse Ox O2 Delivery O2 Flow Rate FiO2 09/13/17 07:14 94 Nasal Cannula 1.00 09/13/17 06:00 97.8 91 20 121/79 (93) 96 Nasal Cannula 2.00 09/12/17 21:33 97 120/65 (83) 09/12/17 21:00 Nasal Cannula 1.00 09/12/17 19:03 91 Nasal Cannula 1.00 09/12/17 16:13 96.7 96 16 118/77 (91) 92 Nasal Cannula 2.00 09/12/17 15:02 95 Nasal Cannula 1.00 09/12/17 10:40 95 Nasal Cannula 1.00 09/12/17 09:19 Nasal Cannula 1.00 09/12/17 08:46 97 107/71 (83) 98 Nasal Cannula 1.00 I & O 09/13/17 07:00 Intake Total 1390 ml Output Total 3950 ml Balance -2560 ml Height & Weight Height: 5'6.00" Weight: 276lbs. 4.0oz. 125.934966bp; 43.0 BMI Method: General Appearance: No Apparent Distress, WD/WN HEENT: Normal ENT Inspection Neck: Normal Inspection Respiratory: No Accessory Muscle Use, No Respiratory Distress Cardiovascular: No Edema, No Gallop, No Murmur, Irregularly Irregular Gastrointestinal: non tender, soft Extremity: No Pedal Edema Neurologic/Psychiatric: Alert, Oriented x3, No Motor/Sensory Deficits, Normal Mood/Affect Skin: Normal Color, Warm/Dry Results Lab Laboratory Tests 09/12/17 06:15 09/13/17 05:22 Assessment/Plan Assessment/Plan pneumonia with hypoxia -Im an going to check a CT of chest secondary to CXR slowly improving -Oxygen -- check home qualification testing - SVNs, IS - Augmentin x 3 days then D/C - Muñoz cultures negative -repeat labs pending -PT will need a repeat CXR 6-8 wks after discharge. If infiltrates persist will need CT of chest. -I will have her f/u with me in 2-3 wks. PT is ok from pulmonary standpoint for discharge. UTI Diarrhea - probably from meds/Abx - Cdiff - negative Morbid obesity debility with Left BKA -PT/OT Afib - controlled Labs and radiology reviewed 232 CRISTOBAL STEVEN DO Sep 13, 2017 07:18
--- NOTE | 2017-09-13 08:01 | Progress Note (SOAP) ---
Subjective Time Seen by Provider: 07:55 Subjective/Events-last exam Patient feeling better today. Patient breathing better. She states patient feeling more more better. GFR 23 improved. Patient getting 3 pounds Objective Exam Vital Signs Date Time Temp Pulse Resp B/P (MAP) Pulse Ox O2 Delivery O2 Flow Rate FiO2 09/13/17 07:14 94 Nasal Cannula 1.00 09/13/17 06:00 97.8 91 20 121/79 (93) 96 Nasal Cannula 2.00 09/12/17 21:33 97 120/65 (83) 09/12/17 21:00 Nasal Cannula 1.00 09/12/17 19:03 91 Nasal Cannula 1.00 09/12/17 16:13 96.7 96 16 118/77 (91) 92 Nasal Cannula 2.00 09/12/17 15:02 95 Nasal Cannula 1.00 09/12/17 10:40 95 Nasal Cannula 1.00 09/12/17 09:19 Nasal Cannula 1.00 09/12/17 08:46 97 107/71 (83) 98 Nasal Cannula 1.00 I & O 09/13/17 07:00 Intake Total 1390 ml Output Total 3950 ml Balance -2560 ml Capillary Refill : General Appearance: No Apparent Distress, WD/WN HEENT: Normal ENT Inspection Respiratory: Lungs Clear, No Accessory Muscle Use, No Respiratory Distress Cardiovascular: Regular Rate, Rhythm Results Lab Laboratory Tests 09/13/17 05:22 Laboratory Tests 09/12/17 10:58: Glucometer 148H 09/12/17 13:16: Glucometer 145H 09/12/17 16:11: Glucometer 174H 09/12/17 22:24: Glucometer 249H 09/13/17 05:22: White Blood Count 7.2, Red Blood Count 2.76L, Hemoglobin 7.5L, Hematocrit 25L, Mean Corpuscular Volume 90, Mean Corpuscular Hemoglobin 27, Mean Corpuscular Hemoglobin Concent 30L, Red Cell Distribution Width 17.5H, Platelet Count 277, Mean Platelet Volume 9.0, Neutrophils (%) (Auto) 73, Lymphocytes (%) (Auto) 14, Monocytes (%) (Auto) 9, Eosinophils (%) (Auto) 3, Basophils (%) (Auto) 1, Neutrophils # (Auto) 5.3, Lymphocytes # (Auto) 1.0, Monocytes # (Auto) 0.6, Eosinophils # (Auto) 0.2, Basophils # (Auto) 0.1, Sodium Level 141, Potassium Level 3.7, Chloride Level 102, Carbon Dioxide Level 29, Anion Gap 10, Blood Urea Nitrogen 33H, Creatinine 2.19H, Estimat Glomerular Filtration Rate 23, BUN/ Creatinine Ratio 15, Glucose Level 88, Calcium Level 9.0, Phosphorus Level 2.8, Magnesium Level 1.9 09/13/17 05:23: Glucometer 103 Microbiology 09/07/17 Blood Culture - Preliminary, Resulted No growth 09/11/17 C. difficile DNA Amplification - Final, Complete 09/08/17 MRSA Screen - Final, Complete MRSA not isolated 09/06/17 Urine Culture - Final, Complete NO GROWTH Assessment/Plan Assessment/Plan Assess & Plan/Chief Complaint Debility. Acute on chronic renal failure. Atrial fibrillation. Diabetes. BKA left. Sleep apnea obstructive. . 08/25/17. Debility. Acute on chronic renal failure. Atrial fibrillation. Diabetes. BKA. Obstructive sleep apnea. Patient feels of foot is slightly swollen Patient working hard yesterday. . 08/28/17. Debility. Acute and chronic renal failure. Atrial fibrillation. Diabetes Patient gained 5 pounds.. . 08/31/17 debility. Chronic renal failure. Atrial fibrillation. Diabetes Patient lost a little weight. . 09/01/17. Debility. Acute and chronic renal failure. Atrial fibrillation. Diabetes. Patient was 7 pounds. Patient put on Demadex by renal specialist. . 09/04/17. Debility. Chronic renal failure. Atrial fibrillation. Diabetes. Patient lost another 2 pounds. . 09/05/17. Debility. Chronic renal failure. Atrial fibrillation history. Diabetes. Patient lost another 3 pounds. Patient improving. . . Debility. Chronic renal failure. Diabetes. Patient states she didn't lose any weight today. . 09/07/17. Debility. Chronic renal failure. UTI being evaluated. Diabetes. Patient states she doesn't feel well today. . 09/08/17. Debility. Chronic renal failure. Diabetes. Aspiration pneumonia.. Urine culture no growth . Pneumonia. Debility. 09/11/17. Renal insufficiency improved since yesterday. Lungs congestion less Diabetes. Hypoglycemia yesterday. . 09/12/17. Aspiration pneumonia. Renal insufficiency improved. Chest x-ray the same. Diabetes. Patient feels bloated. Demadex ordered today. . 09/13/17. Aspiration pneumonia. Renal insufficiency. Diabetes. Continue Demadex. 3 pounds gained Clinical Quality Measures DVT/VTE Risk/Contraindication: Risk Factor Score Per Nursin RFS Level Per Nursing on Admit: 4+=Very High URSULA RENEE DO Sep 13, 2017 08:01
--- NOTE | 2017-09-13 08:47 | PM & R (SOAP) Progress Note ---
Subjective This was a face to face visit with the patient. Date Seen by Provider: Sep 13, 2017 Time Seen by Provider: 08:00 Subjective/Events-last exam Patient was seen in her room this AM Appreciate DR Cavazos note and orders CT Chest results pending DR Moeller has OKD discharge for tomorrow to home with spouse.Patient SBA for transfers.Augmentin continue for treatment of Pneumonia CXR reveals persistent JIMENEZ pneumonia. Review of Systems vaginal dryness Objective Physician Exam Last Set of Vital Signs Vital Signs Date Time Temp Pulse Resp B/P (MAP) Pulse Ox O2 Delivery O2 Flow Rate FiO2 09/13/17 07:14 94 Nasal Cannula 1.00 09/13/17 06:00 97.8 91 20 121/79 (93) Capillary Refill : I&O Intake and Output 09/13/17 00:00 Intake Total 2464 ml Output Total 3300 ml Balance -836 ml Intake Oral 2370 ml IV Total 94 ml Output Urine Total 3300 ml # Bowel Movements 2 General: Alert, Oriented X3, Cooperative, No Acute Distress HEENT: Atraumatic, PERRLA, EOMI, Mucous Memb Moist/[place]: Supple, No JVD Lungs: Clear to Auscultation Heart: Regular Rate, Other (Irregular rhythm) Abdomen: Normal Bowel Sounds, Soft, No Tenderness Extremities: Other (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 Mild rt cellulitis of the leg) Neuro: Other (generalized weakness) Results Lab Data Laboratory Tests 09/10/17 11:35: Glucometer 80 09/10/17 16:04: Glucometer 150H 09/10/17 20:11: Glucometer 179H 09/11/17 05:18: Glucometer 109 09/11/17 05:25: White Blood Count 7.0, Red Blood Count 2.92L, Hemoglobin 8.1L, Hematocrit 26L, Mean Corpuscular Volume 90, Mean Corpuscular Hemoglobin 28, Mean Corpuscular Hemoglobin Concent 31L, Red Cell Distribution Width 17.5H, Platelet Count 177, Mean Platelet Volume 9.5, Neutrophils (%) (Auto) 81H, Lymphocytes (%) (Auto) 7L , Monocytes (%) (Auto) 10, Eosinophils (%) (Auto) 2, Basophils (%) (Auto) 0, Neutrophils # (Auto) 5.7, Lymphocytes # (Auto) 0.5L, Monocytes # (Auto) 0.7, Eosinophils # (Auto) 0.2, Basophils # (Auto) 0.0, Phosphorus Level 3.3, Magnesium Level 2.2, B-Type Natriuretic Peptide 344.4H 09/11/17 11:27: Glucometer 171H 09/11/17 15:33: Glucometer 203H 09/11/17 21:14: Glucometer 207H 09/12/17 05:23: Glucometer 98 09/12/17 06:15: White Blood Count 8.0, Red Blood Count 2.80L, Hemoglobin 7.9L, Hematocrit 25L, Mean Corpuscular Volume 90, Mean Corpuscular Hemoglobin 28, Mean Corpuscular Hemoglobin Concent 31L, Red Cell Distribution Width 17.2H, Platelet Count 228, Mean Platelet Volume 9.3, Neutrophils (%) (Auto) 79H, Lymphocytes (%) (Auto) 8L , Monocytes (%) (Auto) 9, Eosinophils (%) (Auto) 3, Basophils (%) (Auto) 1, Neutrophils # (Auto) 6.3, Lymphocytes # (Auto) 0.6L, Monocytes # (Auto) 0.8, Eosinophils # (Auto) 0.3, Basophils # (Auto) 0.1, Sodium Level 139, Potassium Level 3.8, Chloride Level 103, Carbon Dioxide Level 27, Anion Gap 9, Blood Urea Nitrogen 35H, Creatinine 2.33H, Estimat Glomerular Filtration Rate 22, BUN/ Creatinine Ratio 15, Glucose Level 80, Calcium Level 8.4L, Phosphorus Level 2.7 , Magnesium Level 2.0 09/12/17 10:58: Glucometer 148H 09/12/17 13:16: Glucometer 145H 09/12/17 16:11: Glucometer 174H 09/12/17 22:24: Glucometer 249H 09/13/17 05:22: White Blood Count 7.2, Red Blood Count 2.76L, Hemoglobin 7.5L, Hematocrit 25L, Mean Corpuscular Volume 90, Mean Corpuscular Hemoglobin 27, Mean Corpuscular Hemoglobin Concent 30L, Red Cell Distribution Width 17.5H, Platelet Count 277, Mean Platelet Volume 9.0, Neutrophils (%) (Auto) 73, Lymphocytes (%) (Auto) 14, Monocytes (%) (Auto) 9, Eosinophils (%) (Auto) 3, Basophils (%) (Auto) 1, Neutrophils # (Auto) 5.3, Lymphocytes # (Auto) 1.0, Monocytes # (Auto) 0.6, Eosinophils # (Auto) 0.2, Basophils # (Auto) 0.1, Sodium Level 141, Potassium Level 3.7, Chloride Level 102, Carbon Dioxide Level 29, Anion Gap 10, Blood Urea Nitrogen 33H, Creatinine 2.19H, Estimat Glomerular Filtration Rate 23, BUN/ Creatinine Ratio 15, Glucose Level 88, Calcium Level 9.0, Phosphorus Level 2.8, Magnesium Level 1.9 09/13/17 05:23: Glucometer 103 Microbiology 09/07/17 Blood Culture - Preliminary, Resulted No growth 09/11/17 C. difficile DNA Amplification - Final, Complete 09/08/17 MRSA Screen - Final, Complete MRSA not isolated 09/06/17 Urine Culture - Final, Complete NO GROWTH Assessment/Plan Assessment and Plan Gneral debil secondary to acute on chronic KD meds being adjusted Left Upper lobe pneumonia on Augmentin Dr Moeller following Fluid overload diuresing Flex contracture left BKA Overhead Worker has adjusted prosthesis to accomadate Type 2 DM E cloi UTI treated Left residual limb scabbing healing YUDY HTN controlled A FIB controlled Tobaccoism abstaining Plan Continue PT/OT Team Conference later today See report for full functional update and POC F/U re CT Chest Probable discharge tomorrow will f/u with staff re details (1) Renal failure (ARF), acute on chronic Qualifiers: Qualified Codes: N17.9 - Acute kidney failure, unspecified; N18.4 - Chronic kidney disease, stage 4 (severe) Status: Acute Co-Morbidities that are continuing to impact the rehab process: (include details ) IRMA ESPINOZA MD Sep 13, 2017 08:47
--- NOTE | 2017-09-13 09:03 | Diagnostic Imaging Report ---
PROCEDURE: CT chest without contrast. TECHNIQUE: Multiple contiguous axial images were obtained through the chest without the use of intravenous contrast. INDICATION: Respiratory distress, pneumonia. There are no prior CT examinations available for comparison. FINDINGS: The plain film examination of the chest performed on 09/11/2017 noted alveolar/interstitial infiltrates involving most of the right lung and the left upper lobe. There is also cardiomegaly and mild pulmonary congestion. On this exam those findings are again evident and do not seem to have changed significantly. There are dense areas of consolidation involving both lungs, particularly the right upper lobe. The left lower lobe is generally clear. There is also small right pleural effusion measuring approximately 1.3 CM in maximum depth. However, the interstitial densities in both lungs do not seem to be engorged and consequently I am not certain that there is an element of pulmonary congestion present. The heart is enlarged and there are extensive coronary artery calcifications. There are number of small mediastinal nodes. These are most prominent in the subcarinal region. These nodes in the subcarinal region have a conglomerate size of approximately 2.2 x 3.5 cm. These nodes are nonspecific in appearance. The sections through the upper abdomen suggest that there is cholelithiasis. If further study is desired, then ultrasound would be recommended. There is no obvious breast mass. The bone windows show no evidence for fracture or for destructive lesion. IMPRESSION: 1. There are bilateral areas of dense consolidation. The right upper lobe is most significantly affected. These findings are most likely due to pneumonia/atelectasis. 2. There is cardiomegaly and coronary artery disease. 3. Cholelithiasis. If further evaluation of the gallbladder is desired, then ultrasound would be recommended. Dictated by: Dictated on workstation # [id number]
[2017-09-13] MEDS: AMIODARONE 200 MG (CORDARONE) TAB PO SCH (09:07)
[2017-09-13] MEDS: APIXABAN 5 MG (ELIQUIS) TABLET PO SCH ×2 (09:07→21:51)
[2017-09-13] MEDS: GABAPENTIN 300 MG (NEURONTIN) CAP PO SCH ×3 (09:07→21:51)
[2017-09-13] MEDS: CLOPIDOGREL 75 MG (PLAVIX) TABLET PO SCH (09:07)
[2017-09-13] MEDS: CARVEDILOL 3.125 MG (COREG) TABLET PO SCH ×2 (09:08→21:51)
[2017-09-13] MEDS: DULoxetine 30 MG (CYMBALTA) CAP PO SCH (09:08)
[2017-09-13] MEDS: A & D OINT 60 GM TUBE TOP SCH (09:39)
[2017-09-13] MEDS: NYSTATIN CREAM (MYCOSTATIN) 30 GM TUBE TP SCH ×2 (09:39→21:00)
[2017-09-13] MEDS: TORSEMIDE 20 MG (DEMADEX) TAB PO SCH (12:02)
--- NOTE | 2017-09-13 12:19 | Physical Therapy Daily Note ---
PT Daily Note-Current Subjective Pt. agrees to Rx, unsure if she is DCing tomorrow. Hopes to be off O2 before DC. Insistent that she will ascend 3 steps with no rail at home while holding to her but declines attempting steps here...Describes her home entry and bathroom at home, very challenging, pt. seems to change her story somewhat each time she discloses more. Pain Numeric Pain Scale: 0-No Pain Mental Status Patient Orientation: Normal For Age Attachments: Oxygen (1L), Other-See Comments (prosthesis LLE) Transfers Functional [place] Measure 0=Not Assessed/NA 4=Minimal Assistance 1=Total Assistance 5=Supervision or Setup 2=Maximal Assistance 6=Modified [place] 3=Moderate Assistance 7=Complete IndependenceIRFPAI Quality Coding Scale 6 Independent with activity with or without an assistive device 5 Patient requires set up or clean up by helper. Patient completes activity by themselves 4 Supervision or touching assist (CGA). [place] provide cues , steadying assist 3 The helper provides less than half the effort to complete the activity 2 The helper provides more than half the effort to complete the activity 1 Dependent. The helper does all the effort to complete an activity 7 Patient refused to complete or attempt activity 9 The patient did not perform the activity before the current illness or injury 88 Not attempted due to Medical conditions or safety concerns Transfers (B, C, W/C) (FIM): 6 Scootin Rollin Roll Left to Right (QC): 5 Supine to/from Sit: 6 Sit to/from Stand: 6 Sit to Lying (QC): 5 Sit to Stand (QC): 5 Chair/Gpn-wa-Tkwig Xfer(QC): 5 Bed to/from Chair: 6 Car Transfer (QC): 6 Weight Bearing Right Lower Extremity: Right Weight Bearing/Tolerated Left Lower Extremity: Left Weight Bearing/Tolerated Gait Training Does the Patient Walk?: Yes Gait (FIM): 5 Distance (FIM): 5=541-89 ft (70ft) Walk 10 feet (QC): 5 Walk 50 ft with 2 Turns(QC): 5 Walking 10ft/uneven surface-QC: 5 Gait Level of Assist: 5 Gait Persons Needed: 0 Gait Assistive Device: FWW household exception, pt. ambulates up down ramp 60 ft with FWW SBA Wheelchair Training Does the Pt Use a Wheelchair?: Yes Wheelchair (FIM): 6 Wheelchair Distance: 3=150 ft Wheelchair Level of Assist: 6 Wheel 50 ft with 2 turns (QC): 5 Wheel 150 ft (QC): 5 Type of Wheelchair: Manual up down ramp forward and back , braking etc all mod I Stair Training pt. was brought to steps but would not attempt to ascend, states "Im freaking out" Treatments standing at parallel bars pt. stepped up on pink step leaving left foot on floor but did not fully ascend Assessment Current Status: Good Progress pt. has gained extension of left knee and has much improved gait and safety of gait. Pt. states her ramp is very steep and she feels she wont be able to go up indep walking or with w/c. PT Short Term Goals Short Term Goals Time Frame: Aug 30, 2017 Gait (FIM): 2 Gait Distance Comment: 50' Gait Level of Assist: 4 Gait Assistive Device: FWW Wheelchair Distance: 25' PT Residential Goals Residential Goals PT Head Of [employer] Goals Time Frame: Sep 13, 2017 Transfers (B,C,W/C) (FIM): 6 Sit to Lying (QC): 6 Lying-Sitting on Side/Bed(QC): 6 Sit to Stand (QC): 6 Rollin Roll Left to Right (QC): 6 Chair/Hqt-ns-Trvch Xfer(QC): 6 Car Transfer (QC): 6 Gait (FIM): 2 Distance: 100' Walk 10 feet (QC): 4 Walk 10ft-Uneven Surface(QC): 4 Walk 50ft with 2 Turns (QC): 4 Gait Level of Assist: 5 Gait Assistive Device: FWW Wheelchair (FIM): 6 Stairs (FIM): 1 # of Steps: 1 1 Step (curb) (QC): 4 Stairs Level Of Assist: 4 PT Plan Treatment/Plan Treatment Plan: Continue Plan of Care Treatment Plan: Bed Mobility, Education, Functional Activity Mahad, Functional Strength, Group Therapy, Gait, Safety, Therapeutic Exercise, Transfers Treatment Duration: Sep 13, 2017 Frequency: At least 5 of 7 days/Wk (IRF) Estimated Hrs Per Day: 1.5 hours per day Patient and/or Family Agrees t: Yes Safety Risks/Education Patient Education: Gait Training, Transfer Techniques, Steps, Correct Positioning, W/C Management, Disease Process, Safety Issues Teaching Recipient: Patient Teaching Methods: Demonstration, Discussion Response to Teaching: Verbalize Understanding, Return Demonstration, Reinforcement Needed Time/GCodes Time In: 1100 Time Out: 1200 Total Billed Treatment Time: 60 Total Billed Treatment 1,GT15m,FA25m,WC20m G Codes Necessary: MARINO Roca MANAGER PHARMACY Sep 13, 2017 12:19
--- NOTE | 2017-09-13 13:54 | Physical Therapy Daily Note ---
PT Daily Note-Current Subjective Pt. seems very perturbed that she may have to use O2 at home and that it is necessary to educate and instruct in gait with extended O2 tubing. Pt. did cooperate but was very hesitant Pain Numeric Pain Scale: 0-No Pain Mental Status Patient Orientation: Normal For Age Attachments: Oxygen (1L), Other-See Comments (prosthesis) Transfers Functional [place] Measure 0=Not Assessed/NA 4=Minimal Assistance 1=Total Assistance 5=Supervision or Setup 2=Maximal Assistance 6=Modified [place] 3=Moderate Assistance 7=Complete IndependenceIRFPAI Quality Coding Scale 6 Independent with activity with or without an assistive device 5 Patient requires set up or clean up by helper. Patient completes activity by themselves 4 Supervision or touching assist (CGA). [place] provide cues , steadying assist 3 The helper provides less than half the effort to complete the activity 2 The helper provides more than half the effort to complete the activity 1 Dependent. The helper does all the effort to complete an activity 7 Patient refused to complete or attempt activity 9 The patient did not perform the activity before the current illness or injury 88 Not attempted due to Medical conditions or safety concerns sit to stand all SBA Weight Bearing Right Lower Extremity: Right Weight Bearing/Tolerated Left Lower Extremity: Left Weight Bearing/Tolerated Gait Training Gait Assistive Device: FWW gait 60-70 ft x 3 with many turns utilizing extended O2 tubing at 1L with instruction and education about possibly using a concentrator at home and managing the tubing safely etc. Pt. did not have incident except tube sticking under w/c part . Pt. did stop and stand holding on to FWW and manuevering tubing with other hand. Exercises Seated Therapy Exercises: Ankle pumps, Sit to stand, Long arc quads Seated Reps: 12 Assessment Current Status: Good Progress pt. may not need O2 all the time at home but seems very discouraged by the possibility of this PT Short Term Goals Short Term Goals Time Frame: Aug 30, 2017 Gait (FIM): 2 Gait Distance Comment: 50' Gait Level of Assist: 4 Gait Assistive Device: FWW Wheelchair Distance: 25' PT Longterm Goals Demographer Goals PT Longterm Goals Time Frame: Sep 13, 2017 Transfers (B,C,W/C) (FIM): 6 Sit to Lying (QC): 6 Lying-Sitting on Side/Bed(QC): 6 Sit to Stand (QC): 6 Rollin Roll Left to Right (QC): 6 Chair/Gib-tm-Heuwq Xfer(QC): 6 Car Transfer (QC): 6 Gait (FIM): 2 Distance: 100' Walk 10 feet (QC): 4 Walk 10ft-Uneven Surface(QC): 4 Walk 50ft with 2 Turns (QC): 4 Gait Level of Assist: 5 Gait Assistive Device: FWW Wheelchair (FIM): 6 Stairs (FIM): 1 # of Steps: 1 1 Step (curb) (QC): 4 Stairs Level Of Assist: 4 PT Plan Treatment/Plan Treatment Plan: Continue Plan of Care Treatment Plan: Bed Mobility, Education, Functional Activity Mahad, Functional Strength, Group Therapy, Gait, Safety, Therapeutic Exercise, Transfers Treatment Duration: Sep 13, 2017 Frequency: At least 5 of 7 days/Wk (IRF) Estimated Hrs Per Day: 1.5 hours per day Patient and/or Family Agrees t: Yes Safety Risks/Education Patient Education: Gait Training, Transfer Techniques, Correct Positioning, Disease Process, Safety Issues Teaching Recipient: Patient Teaching Methods: Demonstration, Discussion Response to Teaching: Verbalize Understanding, Return Demonstration, Reinforcement Needed Time/GCodes Time In: 1300 Time Out: 1330 Total Billed Treatment Time: 30 Total Billed Treatment 1,GT30m G Codes Necessary: MARINO Roca [employer] Sep 13, 2017 13:54
--- NOTE | 2017-09-13 15:37 | Occupational Ther Daily Note ---
OT Current Status-Daily Note Subjective No pain reported. Appearance Pt. up in chair. Agrees to shower. Mental Status/Objective Patient Orientation: Person, Place, Time, Situation Functional [place] Measure 0=Not Assessed/NA 4=Minimal Assistance 1=Total Assistance 5=Supervision or Setup 2=Maximal Assistance 6=Modified [place] 3=Moderate Assistance 7=Complete [place] ADL-Treatment Functional [place] Measure 0=Not Assessed/NA 4=Minimal Assistance 1=Total Assistance 5=Supervision or Setup 2=Maximal Assistance 6=Modified [place] 3=Moderate Assistance 7=Complete IndependenceIRFPAI Quality Coding Scale 6 Independent with activity with or without an assistive device 5 Patient requires set up or clean up by helper. Patient completes activity by themselves 4 Supervision or touching assist (CGA). [place] provide cues , steadying assist 3 The helper provides less than half the effort to complete the activity 2 The helper provides more than half the effort to complete the activity 1 Dependent. The helper does all the effort to complete an activity 7 Patient refused to complete or attempt activity 9 The patient did not perform the activity before the current illness or injury 88 Not attempted due to Medical conditions or safety concerns Grooming (FIM): 6 (From wheelchair level.) Oral Hygiene (QC): 6 Bathing (FIM): 6 Shower/Bathe Self (QC): 6 Upper Body (FIM): 6 Upper Body Dressing (QC): 6 Lower Body Dressing (FIM): 4 (Pt. did require assistance to don right shoe and to pull up pants in stance.) Lower Body Dressing (QC): 4 On/Off Footwear (QC): 4 Toileting (FIM): 4 Toileting Hygiene (QC): 4 Transfers (B, C, W/C) (FIM): 6 Toilet/Commode Transfer (FIM): 6 Toilet Transfer (QC): 6 Shower Transfer(FIM): 5 Other Treatment After ADLs, pt. self propelled to therapy gym. Stood at parallel bars x 2 and worked on weight shifts and weight bearing. Stood approximately 2 minutes each stand. Education OT Patient Education: Correct positioning, Modified ADL techniques, Progress toward Goal/Update tx plan, Purpose of tx/functional activities, Reviewed precautions, Rehab process, Transfer techniques Teaching Recipient: Patient Teaching Methods: Demonstration, Discussion Response to Teaching: Verbalize Understanding, Return Demonstration OT Short Term Goals Short Term Goals Time Frame: Aug 30, 2017 Bathing(FIM): 5 Lower Body Dressing(FIM): 5 Toileting(FIM): 5 Toilet/Commode Transfer(FIM): 5 Additional Short Term Goals: 1-Demonstrate ADL Tasks, 2-Verbalize Understanding , 3-ImproveStrength/Mahad 1=Demonstrate adherence to instructed precautions during ADL tasks. 2=Patient will verbalize/demonstrate understanding of assistive devices/ modifications for ADL. 3=Patient will improve strength/tolerance for activity to enable patient to perform ADL's. OT Motel Maid Goals Motel Maid Goals Time Frame: Sep 08, 2017 Eating (FIM): 7 Eating (QC): 6 Groomin Oral Hygiene (QC): 6 Bathing(FIM): 6 Shower/Bathe Self (QC): 6 Upper Body Dressing(FIM): 6 Upper Body Dressing (QC): 6 Lower Body Dressing(FIM): 6 Lower Body Dressing (QC): 6 On/Off Footwear (QC): 6 Toileting(FIM): 6 Toileting Hygiene (QC): 6 Toilet/Commode Transfer(FIM): 6 Toilet/Commode Transfer (QC): 6 Shower Transfer(FIM): 5 Additional Goals: 1-Demonstrate ADL Tasks, 2-Verbalize Understanding, 3- ImproveStrength/Mahad 1=Demonstrate adherence to instructed precautions during ADL tasks. 2=Patient will verbalize/demonstrate understanding of assistive devices/ modifications for ADL. 3=Patient will improve strength/tolerance for activity to enable patient to perform ADL's. OT Education/Plan Problem List/Assessment Assessment: Decreased Activ Tolerance Pt would benefit from skilled OT to increase her independence in basic self care to allow her to safely return home with family after long hospitalization Discharge Recommendations Plan/Recommendations: Continue POC Therapy D/C Recommendations: Home w/ Family Support, Occupational Therapy Home Care Treatment Plan/Plan of Care Treatment,Training & Education: Yes Patient would benefit from OT for education, treatment and training to promote independence in ADL's, mobility, safety and/or upper extremity function for ADL' s. Plan of Care: ADL Retraining, Functional Mobility, Group Exercise/Act as Ind ( education, exercise, activity tolerance, socialization, funct mobility), UE Funct Exercise/Act, UE Neuromus Re-Ed/Coord Treatment Duration: Sep 08, 2017 Frequency: At least 5 of 7 days/Wk (IRF) Estimated Hrs Per Day: 1.5 hours per day Agreement: Yes Rehab Potential: Fair Time/GCodes Start Time: 09:30 Stop Time: 11:00 Total Time Billed (hr/min): 90 Billed Treatment Time 1, ADL x 75minutes, FA x 15minutes ALEXIS PAVON OT Sep 13, 2017 15:37
[2017-09-13] MEDS ORDERED: APIX5TAB PO (17:06)
[2017-09-13] MEDS ORDERED: AMIO200T4 PO (17:06)
[2017-09-13] MEDS ORDERED: CARV3.122 PO (17:06)
[2017-09-13] MEDS ORDERED: GABA-488 PO (17:06)
[2017-09-13 17:30] VITALS: BP 126/82
[2017-09-13] MEDS: SIMvastatin 20 MG (ZOCOR) TAB PO SCH (21:51)
[2017-09-13] MEDS: inSUlin DETERMIR 1 UNIT/0.01 ML (LEVEMIR) CHARGE PER UNIT SQ SCH (21:53)
[2017-09-14 05:29] LABS: EOSINOPHILS # (AUTO) 0.2 10^3/uL (0.0-0.3); EOSINOPHILS % (AUTO) 3 % (0-10); LYMPHOCYTES % (AUTO) 16 % (12-44); NEUTROPHILS # (AUTO) 5.8 X 10^3 (1.8-7.8)
[2017-09-14 05:45] LABS: CALCIUM 9.2 MG/DL (8.5-10.1); CREATININE SERUM 2.35 MG/DL (0.60-1.30); MAGNESIUM 1.8 MG/DL (1.8-2.4); PHOSPHORUS 2.3 MG/DL (2.3-4.7); POTASSIUM 3.3 MMOL/L (3.6-5.0)
[2017-09-14 05:48] VITALS: BP 125/82
[2017-09-14] MEDS: inSUlin ASPART (NovoLOG) 1 UNIT/0.01 ML (CHARGE PER UNIT) SC SCH (06:00)
[2017-09-14] MEDS: LACTOBACILLUS Acidoph/Bulgar (LACTINEX/FLORANEX) TAB PO SCH (06:24)
[2017-09-14] MEDS: RT-ALBUTEROL/IPRATROPIUM 3 ML (DUONEB) VIAL INH SCH (06:35)
[2017-09-14 06:44] LABS: BASOPHILS % (AUTO) 1 % (0-10); LYMPHOCYTES # (AUTO) 1.2 X 10^3 (1.0-4.0); MEAN CORPUSCULAR HGB CONC 32 G/DL (32-36); MEAN CORPUSCULAR VOLUME 90 FL (80-99); MONOCYTES % (AUTO) 8 % (0-12); NEUTROPHILS % (AUTO) 73 % (42-75); RED CELL DISTRIBUTION WIDTH 17.4 % (10.0-14.5)
[2017-09-14 06:45] LABS: BASOPHILS # (AUTO) 0.1 10^3/uL (0.0-0.1); MONOCYTES # (AUTO) 0.6 X 10^3 (0.0-1.0)
[2017-09-14 06:46] LABS: HEMATOCRIT 28 % (35-52); HEMOGLOBIN 8.8 G/DL (11.5-16.0); MEAN CORPUSCULAR HEMOGLOBIN 28 PG (25-34); PLATELET COUNT 298 10^3/uL (130-400); WHITE BLOOD COUNT 8.9 10^3/uL (4.3-11.0)
[2017-09-14] MEDS: AUGMENTIN 875 MG TAB (AMOXICILLIN/CLAVULANATE) PO SCH (06:50)
[2017-09-14] MEDS: CALCIUM ACETATE 667 MG CAP (PHOSLO) PO SCH (06:50)
--- NOTE | 2017-09-14 07:35 | PM & R (SOAP) Progress Note ---
Subjective This was a face to face visit with the patient. Date Seen by Provider: Sep 14, 2017 Time Seen by Provider: 07:25 Subjective/Events-last exam Patient was seen in her room this AM All set for discharge I believe that ESTELLA and DR Moeller have arranged for home 02 as per patients confirmation Current meds reviewed.Labs noted K low one time dose of K provided Review of Systems vaginal dryness Objective Physician Exam Last Set of Vital Signs Vital Signs Date Time Temp Pulse Resp B/P (MAP) Pulse Ox O2 Delivery O2 Flow Rate FiO2 09/14/17 06:35 98 Nasal Cannula 1.00 09/14/17 05:48 97.4 87 18 125/82 (96) Capillary Refill : I&O Intake and Output 09/14/17 00:00 Intake Total 1420 ml Output Total 5150 ml Balance -3730 ml Intake Oral 1420 ml Output Urine Total 5150 ml # Bowel Movements 1 General: Alert, Oriented X3, Cooperative, No Acute Distress HEENT: Atraumatic, PERRLA, EOMI, Mucous Memb Moist/[place] Neck: Supple, No JVD Lungs: Clear to Auscultation Heart: Regular Rate, Other (Irregular rhythm) Abdomen: Normal Bowel Sounds, Soft, No Tenderness Extremities: Other (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 Mild rt cellulitis of the leg) Neuro: Other (generalized weakness) Results Lab Data Laboratory Tests 09/11/17 11:27: Glucometer 171H 09/11/17 15:33: Glucometer 203H 09/11/17 21:14: Glucometer 207H 09/12/17 05:23: Glucometer 98 09/12/17 06:15: White Blood Count 8.0, Red Blood Count 2.80L, Hemoglobin 7.9L, Hematocrit 25L, Mean Corpuscular Volume 90, Mean Corpuscular Hemoglobin 28, Mean Corpuscular Hemoglobin Concent 31L, Red Cell Distribution Width 17.2H, Platelet Count 228, Mean Platelet Volume 9.3, Neutrophils (%) (Auto) 79H, Lymphocytes (%) (Auto) 8L , Monocytes (%) (Auto) 9, Eosinophils (%) (Auto) 3, Basophils (%) (Auto) 1, Neutrophils # (Auto) 6.3, Lymphocytes # (Auto) 0.6L, Monocytes # (Auto) 0.8, Eosinophils # (Auto) 0.3, Basophils # (Auto) 0.1, Sodium Level 139, Potassium Level 3.8, Chloride Level 103, Carbon Dioxide Level 27, Anion Gap 9, Blood Urea Nitrogen 35H, Creatinine 2.33H, Estimat Glomerular Filtration Rate 22, BUN/ Creatinine Ratio 15, Glucose Level 80, Calcium Level 8.4L, Phosphorus Level 2.7 , Magnesium Level 2.0 09/12/17 10:58: Glucometer 148H 09/12/17 13:16: Glucometer 145H 09/12/17 16:11: Glucometer 174H 09/12/17 22:24: Glucometer 249H 09/13/17 05:22: White Blood Count 7.2, Red Blood Count 2.76L, Hemoglobin 7.5L, Hematocrit 25L, Mean Corpuscular Volume 90, Mean Corpuscular Hemoglobin 27, Mean Corpuscular Hemoglobin Concent 30L, Red Cell Distribution Width 17.5H, Platelet Count 277, Mean Platelet Volume 9.0, Neutrophils (%) (Auto) 73, Lymphocytes (%) (Auto) 14, Monocytes (%) (Auto) 9, Eosinophils (%) (Auto) 3, Basophils (%) (Auto) 1, Neutrophils # (Auto) 5.3, Lymphocytes # (Auto) 1.0, Monocytes # (Auto) 0.6, Eosinophils # (Auto) 0.2, Basophils # (Auto) 0.1, Sodium Level 141, Potassium Level 3.7, Chloride Level 102, Carbon Dioxide Level 29, Anion Gap 10, Blood Urea Nitrogen 33H, Creatinine 2.19H, Estimat Glomerular Filtration Rate 23, BUN/ Creatinine Ratio 15, Glucose Level 88, Calcium Level 9.0, Phosphorus Level 2.8, Magnesium Level 1.9 09/13/17 05:23: Glucometer 103 09/13/17 11:02: Glucometer 132H 09/13/17 15:49: Glucometer 180H 09/13/17 20:20: Glucometer 241H 09/14/17 05:16: White Blood Count 8.9, Red Blood Count 3.10L, Hemoglobin 8.8L, Hematocrit 28L, Mean Corpuscular Volume 90, Mean Corpuscular Hemoglobin 28, Mean Corpuscular Hemoglobin Concent 32, Red Cell Distribution Width 17.4H, Platelet Count 298, Mean Platelet Volume 9.0, Neutrophils (%) (Auto) 73, Lymphocytes (%) (Auto) 16, Monocytes (%) (Auto) 8, Eosinophils (%) (Auto) 3, Basophils (%) (Auto) 1, Neutrophils # (Auto) 5.8, Lymphocytes # (Auto) 1.2, Monocytes # (Auto) 0.6, Eosinophils # (Auto) 0.2, Basophils # (Auto) 0.1, Sodium Level 141, Potassium Level 3.3L, Chloride Level 99, Carbon Dioxide Level 31, Anion Gap 11, Blood Urea Nitrogen 35H, Creatinine 2.35H, Estimat Glomerular Filtration Rate 21, BUN/ Creatinine Ratio 15, Glucose Level 70, Calcium Level 9.2, Phosphorus Level 2.3, Magnesium Level 1.8 Microbiology 09/07/17 Blood Culture - Final, Complete No growth 09/11/17 C. difficile DNA Amplification - Final, Complete 09/08/17 MRSA Screen - Final, Complete MRSA not isolated 09/06/17 Urine Culture - Final, Complete NO GROWTH Assessment/Plan Assessment and Plan Home today with spouse to [place] F/U with PCP, DR Moeller and other specialists See orders (1) Renal failure (ARF), acute on chronic Qualifiers: Qualified Codes: N17.9 - Acute kidney failure, unspecified; N18.4 - Chronic kidney disease, stage 4 (severe) Status: Acute Co-Morbidities that are continuing to impact the rehab process: (include details ) IRMA ESPINOZA MD Sep 14, 2017 07:35
[2017-09-14] MEDS ORDERED: KCL 20 MEQ TAB (K-DUR) PO NR (07:45)
[2017-09-14 08:30] VITALS: BP 125/82
--- NOTE | 2017-09-14 08:45 | Therapy Team Discharge Summary ---
Therapy Discharge Summary Discharge Recommendations Date of Discharge 09/14/2017 Therapy D/C Recommendations: Home w/ Family Support, Occupational Therapy Home Care, Physical Therapy Home Care (or outpatient. ) Physical Therapy This patient was transferred to our unit with a diagnosis of debility after an acute hospital stay due to acute kidney failure. Upon admit, she required min assist with transfers and was able to ambulate 40 ft with min assist; she was mod indep with wheelchair mobilty. Treatment has consisted of a wide variety of treatments to include functional strength with ther ex, functional activity with transfer and mobility training, gait training and progression, wheelchair mobility training; managment of oxygen tubing, problem solving training to establish best method to enter/exit her home as well as get in/out of her bathroom, functional activity tolerance progression and safety education. Her progress was slowed at times due to medical issues. She also expresses barriers in her home (such as a steep ramp or narrow path to the toilet) that can not or will not be changed. She has made functional progress and her goals have been met to her max potential at this time. Pt to discharge home with her spouse. Recommend follow up care; however unsure if her insurance will cover. DC PT. Occupational Therapy Decreased Activ Tolerance PT Image Processing Engineer Goals Image Processing Engineer Goals PT Image Processing Engineer Goals Time Frame: Sep 13, 2017 Transfers (B,C,W/C) (FIM): 6 (met) Roll Left to Right (QC): 6 Sit to Lying (QC): 6 Lying-Sitting on Side/Bed(QC): 6 Sit to Stand (QC): 6 Chair/Inm-yh-Gchtp Xfer(QC): 6 Car Transfer (QC): 6 Gait (FIM): 2 (exceeded; scored a 5) Distance: 100' Walk 10 feet (QC): 4 Walk 10ft-Uneven Surface(QC): 4 Walk 50ft with 2 Turns (QC): 4 Gait Level of Assist: 5 Gait Assistive Device: FWW Wheelchair (FIM): 6 (met) Stairs (FIM): 1 (pt declined to attempt) # of Steps: 1 1 Step (curb) (QC): 4 Stairs Level Of Assist: 4 Goals partially achieved. OT Image Processing Engineer Goals Image Processing Engineer Goals Time Frame: Sep 08, 2017 Eating (FIM): 7 Eating (QC): 6 Oral Hygiene (QC): 6 Grooming(FIM): 6 Bathing(FIM): 6 Shower/Bathe Self (QC): 6 Upper Body Dressing(FIM): 6 Upper Body Dressing (QC): 6 Lower Body Dressing(FIM): 6 Lower Body Dressing (QC): 6 On/Off Footwear (QC): 6 Toileting(FIM): 6 Toileting Hygiene (QC): 6 Toilet/Commode Transfer(FIM): 6 Toilet/Commode Transfer (QC): 6 Shower Transfer(FIM): 5 Additional Goals: 1-Demonstrate ADL Tasks, 2-Verbalize Understanding, 3- ImproveStrength/Mahad 1=Demonstrate adherence to instructed precautions during ADL tasks. 2=Patient will verbalize/demonstrate understanding of assistive devices/ modifications for ADL. 3=Patient will improve strength/tolerance for activity to enable patient to perform ADL's. ANA MOODY PT Sep 14, 2017 08:44
--- NOTE | 2017-09-14 12:59 | Therapy Team Discharge Summary ---
Therapy Discharge Summary Discharge Recommendations Date of Discharge Sep 14, 2017 at 08:00 Therapy D/C Recommendations: Home w/ Family Support, Occupational Therapy Home Care, Physical Therapy Home Care (or outpatient. ) Occupational Therapy Pt. has been seen by occupational therapy to increase overall strength and independence. Pt. has met many goals, but does require min assist to don right shoe, and assist at times in stance for dynamic task due to balance. Pt. is discharging home with spouse. Recommend follow up care with home health OT to make sure pt. is safe in home. Decreased Activ Tolerance, Impaired I ADL's, Impaired Self-Care Skills PT Skilled Nursing Goals Resawyer Goals PT Skilled Nursing Goals Time Frame: Sep 13, 2017 Transfers (B,C,W/C) (FIM): 6 (met) Roll Left to Right (QC): 6 Sit to Lying (QC): 6 Lying-Sitting on Side/Bed(QC): 6 Sit to Stand (QC): 6 Chair/Qmu-nv-Mxepr Xfer(QC): 6 Car Transfer (QC): 6 Gait (FIM): 2 (exceeded; scored a 5) Distance: 100' Walk 10 feet (QC): 4 Walk 10ft-Uneven Surface(QC): 4 Walk 50ft with 2 Turns (QC): 4 Gait Level of Assist: 5 Gait Assistive Device: FWW Wheelchair (FIM): 6 (met) Stairs (FIM): 1 (pt declined to attempt) # of Steps: 1 1 Step (curb) (QC): 4 Stairs Level Of Assist: 4 OT Skilled Nursing Goals Resawyer Goals Time Frame: Sep 08, 2017 Eating (FIM): 7 (met) Eating (QC): 6 (met) Oral Hygiene (QC): 6 (met) Grooming(FIM): 6 (met) Bathing(FIM): 6 (met) Shower/Bathe Self (QC): 6 (met) Upper Body Dressing(FIM): 6 (met) Upper Body Dressing (QC): 6 (met) Lower Body Dressing(FIM): 6 (not met) Lower Body Dressing (QC): 6 (not met) On/Off Footwear (QC): 6 (not met) Toileting(FIM): 6 (not met) Toileting Hygiene (QC): 6 (not met) Toilet/Commode Transfer(FIM): 6 (met) Toilet/Commode Transfer (QC): 6 (met) Shower Transfer(FIM): 5 (not met) Additional Goals: 1-Demonstrate ADL Tasks, 2-Verbalize Understanding, 3- ImproveStrength/Mahad 1=Demonstrate adherence to instructed precautions during ADL tasks. 2=Patient will verbalize/demonstrate understanding of assistive devices/ modifications for ADL. 3=Patient will improve strength/tolerance for activity to enable patient to perform ADL's. ALEXIS PAVON OT Sep 14, 2017 12:59
--- NOTE | 2017-09-27 08:54 | DISCHARGE SUMMARY ---
DATE OF SERVICE: HISTORY OF PRESENT ILLNESS: The patient is a 56-year-old morbidly obese female with a past medical history significant for insulin-dependent diabetes mellitus type 2, hypertension, chronic atrial fibrillation, who presented to ED in [place], [place] with the above history. She had increased edema in the right lower limb. She is status post left below-knee amputation, for which she received rehabilitation at this facility in 2017 and did well. She was unable to wear a prosthesis recently due to increased edema and flexion contracture. She had associated dyspnea on exertion. The patient was followed by various specialists including nephrology and medications were adjusted. Labs were monitored. She was stabilized and referred to inpatient rehabilitation unit at [facility] for ongoing care with goal of return home with spouse. She had been modified independent for transfers and for wheelchair mobility prior to this. She did not always use her BKA prosthesis. She was seen by cardiology as well while in [place]. The patient indicates that she uses gentamicin cream for her right lower limb chronic cellulitis. PAST MEDICAL HISTORY: Chronic diastolic congestive heart failure, acute on chronic kidney disease, type 2 diabetes mellitus, atrial fibrillation, UTI, right lower limb cellulitis, obstructive sleep apnea, hypertension, post-ATN diuresis, left BKA, lives with her spouse in [place], [place]. MEDICAL COURSE: The patient was followed by Dr. Espinoza and Dr. Christina while on rehab unit. She was seen by Dr. Moeller. Attempts were made to wean her from O2, but she continued to require one liter of O2 by nasal cannula continuous. Dr. Moeller arranged for this at home. A paraoptometric presented from [place] and adjusted prosthesis to accommodate her flexion contracture, stretching was utilized to improve the contracture with some improvement. She was seen by Dr. Darden, intake specialist and topical care was provided. Her Accu-Cheks were monitored. Medications adjusted as necessary. Stool for occult blood was negative. Blood cultures negative. MRSA negative. CBC on 09/14 showed WBC 8.9, H and H 8.8 and 28, platelet count 298,000. Chemistry on 09/14 showed potassium 3.3, replacement provided, BUN and creatinine 35/2.35, stable. Serum sodium on 09/10 was 133 with improvement noted as per above. BNP was 344.4 on 09/11. The patient was counseled by behavioral health as well. She did spike a fever of 101 on 09/07. E. coli UTI was treated. She continues on medication for AFib. On 09/14, she was afebrile. Pulse is 87, respirations 18, blood pressure 125/82, pulse was irregular. O2 sat was 95% on 1 liter of O2 by nasal cannula. CT scan of the chest and abdomen was ordered by Dr. Moeller revealed bilateral areas of dense consolidation in the right upper lobe. This most significantly affected. My findings are most likely due to pneumonia, atelectasis. The patient was continued on antibiotic. Also noted was cardiomegaly and coronary artery disease and cholelithiasis. Extensive coronary artery calcifications were noted as well as small right pleural effusion. Dr. Moeller will follow up regarding this as an outpatient. REHABILITATION COURSE: The patient was assessed by speech therapy, found to be cognitively intact. They signed off. OT notes upon admission, the patient was independent for eating, grooming, oral hygiene, modified independent, min assist for bathing, modified independent for upper body dressing, mod assist for lower body dressing, min assist for toileting and toilet transfers. Upon discharge, the patient has met many goals, but does require min assist to Standby assist at times stance for dynamic task due to balance impairment. The patient will be discharging home with spouse. The patient is a standby assist for dressing, toileting, toileting hygiene, toilet to commode transfers. She is independent for eating, mod I for grooming and oral hygiene. PT notes upon admission, she required min assist for transfers and was able to ambulate 40 feet with min assist. She was modified independent with wheelchair mobility. Her progress was slowed at times due to medical issues. Upon discharge, she is modified independent for transfers, standby assist for gait 100 feet with a front wheel walker. DISCHARGE INSTRUCTIONS: She is discharged to home with her spouse in [place]. She will have followup outpatient PT, follow up with her paraoptometric as per their schedule. Follow up with her PCP. Continue current diet and home Accu-Cheks. Follow up with Dr. Moeller, pulmonology. DISCHARGE MEDICATIONS: Amiodarone 400 mg p.o. daily, Eliquis 5 mg p.o. b.i.d., Coreg 3.125 mg p.o. b.i.d., gabapentin 300 mg p.o. t.i.d., Tylenol 650 mg p.o. q. 4 hours p.r.n. pain, ASA 81 mg p.o. daily, calcium carbonate 750 mg p.o. b.i.d., citalopram 20 mg p.o. daily, Plavix 75 mg p.o. daily, Cymbalta 30 mg p.o. daily, Isopto Tears one to two drops both eyes q. 4 hours p.r.n. dry eyes, Levemir insulin 10 units subq at night, Humalog sliding scale subq before meals and at bedtime, Amitiza 24 mcg p.o. b.i.d., Preparation H ointment rectally p.r.n. hemorrhoidal pain, pravastatin 20 mg p.o. each day at bedtime, zinc oxide topically as needed for wound care. DISCHARGE DIAGNOSES: 1. Rehabilitation, acute renal failure. 2. Hypertension with chronic kidney disease and chronic diastolic congestive heart failure. 3. Aspiration pneumonitis, treated. 4. Urinary tract infection, Escherichia coli treated. 5. Persistent atrial fibrillation, on meds. 6. Cellulitis, right lower limb, improved. 7. Diabetes mellitus type 2 with hypoglycemia. 8. Fluid overload, improved. 9. Morbid obesity, BMI 43.0. 10. Obstructive sleep apnea. 11. Tobaccoism. 12. Diarrhea, resolved. 13. Long-term use of insulin. 14. Status post left below-knee amputation. CONDITION AT DISCHARGE: Improved and stable. PROGNOSIS: Rehab prognosis appears good for some continued improvement with outpatient PT and return to independent living with assistance from spouse as needed. Job ID: [id number] DocumentID: [id number] Dictated Date: 09/26/2017 19:25:57 Screening Unit Registered Nurse Date: 09/27/2017 05:52:34 Dictated By: IRMA ESPINOZA MD MTDD
== END 2017-09-14 08:00 | disposition home or self-care (01) | DRG 947 ==
PROVIDERS: ADMIT Physical Medicine & Rehabilitation; ATTEND Physical Medicine & Rehabilitation
DX: R53.1 Weakness (principal); I13.0 Hypertensive heart and chronic kidney disease with heart failure and stage 1 through stage 4 chronic kidney disease, or unspecified chronic kidney disease; N18.4 Chronic kidney disease, stage 4 (severe); I50.32 Chronic diastolic (congestive) heart failure; J69.0 Pneumonitis due to inhalation of food and vomit; N39.0 Urinary tract infection, site not specified; I48.1 Persistent atrial fibrillation; L03.115 Cellulitis of right lower limb; E11.649 Type 2 diabetes mellitus with hypoglycemia without coma; E87.70 Fluid overload, unspecified; E66.01 Morbid (severe) obesity due to excess calories; G47.33 Obstructive sleep apnea (adult) (pediatric); F17.210 Nicotine dependence, cigarettes, uncomplicated; R19.7 Diarrhea, unspecified; B96.20 Unspecified Escherichia coli [E. coli] as the cause of diseases classified elsewhere; Z79.4 Long term (current) use of insulin; Z68.41 Body mass index [BMI] 40.0-44.9, adult; Z89.512 Acquired absence of left leg below knee
CPT/HCPCS: 36415; 36600; 71045; 71046; 71250; 80048; 80053; 81000; 82805; 82962; 83605; 83735; 83880; 84100; 85007; 85025; 85027; 87040; 87081; 87088; 87324; 87449; 87493; 93005; 93306; 94640; 94664; 94760; 94761